=== PATIENT | male | born 1940 | race Caucasian/White ===

== ENCOUNTER → 2018-03-07 | Outpatient (CLI) | payer OTHER ==
--- NOTE | 2018-03-08 23:25 | MR ---
EXAMINATION TYPE: MR hip RT wo con DATE OF EXAM: 03/07/2018 COMPARISON: Abdominal x-ray May 04, 2013. HISTORY: Right hip pain and groin pain with weakness Standard multiplanar, multisequence MRI departmental protocol Multiplanar, multisequence images of the pelvis focus of right hip were acquired. FINDINGS: There is redemonstration of moderate to borderline severe axial joint space loss in both hi ps. There are symmetric small hip joint effusions noted bilaterally. There is no suspicious edema pre sent. No irregular linear T1 signal to suggest avascular necrosis is seen. Femoral head shapes are ma intained. Muscle bulk and bilateral thighs is symmetric and felt within normal limits. There are smal l fat-containing left inguinal hernia. No suspicious groin adenopathy is seen. There is mild increased fluid signal at level of right greater trochanter. There is no suspicious flu id signal level of the lesser trochanters bilaterally. Labrum appears grossly intact given limitation s of nonarthrogram study. There is subchondral cystic change noted in the superior osseous glenoid bi laterally. There is heterogeneous enlarged prostate gland with central zone cystic change bulging and bladder ba se felt to reflect underlying BPH. Correlate clinically. There is no suspicious bowel dilatation. IMPRESSION: Fairly moderate to severe osteoarthritic changes in both hips. Mild right-sided greater trochanteric bursitis is felt present. Prostatic enlargement is noted.
== END ==
LOC: RADMRIMAIN 17:21
PROVIDERS: ATTEND Family Medicine
DX: M16.0 Bilateral primary osteoarthritis of hip (principal); M70.61 Trochanteric bursitis, right hip

== ENCOUNTER → 2018-04-10 | Outpatient (CLI) | payer OTHER ==
--- NOTE | 2018-04-10 23:12 | MR ---
EXAMINATION TYPE: MR lumbar spine wo con DATE OF EXAM: 04/10/2018 COMPARISON: NONE HISTORY: Back and Hip Pain x4 years TECHNIQUE: Multiplanar, multisequence images of the lumbar spine were acquired. Lumbar vertebra have normal alignment. There is 15% anterior wedging of L2 vertebral body. There is a nterior spurring of the endplates throughout the lumbar spine. There is narrowing of disc spaces thro ughout lumbar spine. There is facet arthropathy and lateral recess stenosis at L3-4. There is no para spinal mass. Sacroiliac joints are intact. I see no focal bone destruction. There is a 4 cm oval-shap ed subcutaneous cyst posterior to the spinous process of L5. IMPRESSION: Multilevel spondylosis. No acute fracture seen. Mild lateral recess stenosis as above. No significant spinal stenosis. Multilevel small posterior disc herniations from L1 to S1.
== END | disposition home or self-care (01) ==
LOC: RADMRIMAIN 17:00
PROVIDERS: ATTEND Family Medicine
DX: M48.061 Spinal stenosis, lumbar region without neurogenic claudication (principal); M47.816 Spondylosis without myelopathy or radiculopathy, lumbar region; M51.27 Other intervertebral disc displacement, lumbosacral region; M16.0 Bilateral primary osteoarthritis of hip
CPT/HCPCS: 72148

== ENCOUNTER → 2018-05-13 | Outpatient (CLI) | payer OTHER ==
--- NOTE | 2018-05-20 19:51 | CONS ---
CONSULTATION DATE OF SERVICE: 05/13/2018 This is a 77-year-old male patient with known history of obstructive sleep apnea. The patient is coming in stating that his machine is nonfunctioning. He has an old CPAP unit that is being used for more than 10 years. The patient's original study was done back in the 90s and he is currently using a CPAP at a pressure of 12 cm of water with ramp time of 10 minutes and initial starting pressure of 6. He is averaging 9 hours and 12 minutes on his CPAP and his CPAP use for more than 4 hours 100%. His AHI is down to 5.7, and he has got a 3% periodic breathing with no leaks. He goes to bed around midnight and wakes up at 9 a.m. in the morning. His Bankston score is 11. PAST MEDICAL HISTORY: ROSS, hyperlipidemia, hypothyroidism, hypertension, diabetes mellitus, and degenerative arthritis. SURGICAL HISTORY: Neck surgery, vasectomy. DRUG ALLERGIES: Not known. OUTPATIENT MEDICATION LIST: Includes amlodipine 10 daily, vitamin D3 1000 daily, Flexeril 5 mg p.o. on as needed basis. Glipizide 10 mg p.o. daily, hydralazine 10 mg p.o. 3 times a day, Levothyroxine 88 mcg p.o. daily, lisinopril 40 mg p.o. daily, metoprolol 50 mg p.o. twice a day. Multivitamin 1 tablet a day. Zocor 40 a day. Tramadol 50 daily, aspirin 81 mg p.o. daily, ferrous sulfate 325 mg p.o. daily, vitamin C 250 mg chewables 1 tablet a day. SOCIAL HISTORY: Nonsmoker. No history of alcohol. No history of IV drugs. FAMILY HISTORY: Negative for sleep apnea. REVIEW OF SYSTEMS: 12-point review of system was done. Positive findings are mentioned above history of present illness. PHYSICAL EXAMINATION: BP is 135/60, pulse 58, respirations 14, temperature 97, saturation 94% on room air. Bankston score is 11. Neck size 18-1/2 inches, BMI 34.3, weight 226, height is 5 feet 8 inches. GENERAL APPEARANCE: Calm, comfortable. Head is atraumatic, normocephalic. NECK: Supple. There is Mallampati class IV. There is no goiter or neck masses. LUNGS: Clear to auscultation. HEART: Sounds regular rhythm. Normal S1, S2. No S3, S4. No murmurs. ABDOMEN: Soft, nontender. No organomegaly. EXTREMITIES: No edema. No cyanosis or clubbing. NEUROLOGIC: Alert and oriented x3. No focal neurological deficits. IMPRESSION: 1. Obstructive sleep apnea, which is treated with a CPAP pressure of 12, malfunctioning CPAP unit. 2. Diabetes. 3. Hypertension. 4. Hypothyroidism. 5. Hyperlipidemia. PLAN: Proceed with treatment. We will continue to follow. MMODL / IJN: [id number] /
== END | disposition home or self-care (01) ==
LOC: SLEEP 13:19
PROVIDERS: ATTEND Internal Medicine Critical Care Medicine
DX: G47.33 Obstructive sleep apnea (adult) (pediatric) (principal); E03.9 Hypothyroidism, unspecified; E11.9 Type 2 diabetes mellitus without complications; E78.5 Hyperlipidemia, unspecified; I10 Essential (primary) hypertension; Z88.8 Allergy status to other drugs, medicaments and biological substances
CPT/HCPCS: 99211

== ENCOUNTER → 2018-12-11 | Outpatient (CLI) | payer OTHER | END | disposition home or self-care (01) | LOC: LABWHC1 11:32 | PROVIDERS: ATTEND Internal Medicine Endocrinology, Diabetes & Metabolism | DX: E03.8 Other specified hypothyroidism (principal) | CPT/HCPCS: 36415; 84443 ==

== ENCOUNTER → 2019-01-01 | Outpatient (CLI) | payer OTHER ==
[2019-01-01 21:08] LABS: ACTH 17.5 pg/mL (0.00-45.99)
== END ==
LOC: LABWHC1 13:38
PROVIDERS: ATTEND Internal Medicine Endocrinology, Diabetes & Metabolism
DX: E03.8 Other specified hypothyroidism (principal)
CPT/HCPCS: 36415; 82024; 82533; 84146; 84439; 84443; 84481

== ENCOUNTER → 2019-03-16 | Outpatient (CLI) | payer OTHER | END | disposition home or self-care (01) | LOC: LABWHC1 10:28 | PROVIDERS: ATTEND Internal Medicine Endocrinology, Diabetes & Metabolism | DX: E03.8 Other specified hypothyroidism (principal) | CPT/HCPCS: 36415; 84439; 84443; 84481 ==

== ENCOUNTER → 2019-05-25 | Outpatient (CLI) | payer OTHER ==
[2019-05-25 16:04] LABS: T4, Free (Free Thyroxine) 1.3 ng/dL (0.80-1.80)
== END | disposition home or self-care (01) ==
LOC: LABWHC1 11:52
PROVIDERS: ATTEND Internal Medicine Endocrinology, Diabetes & Metabolism
DX: E03.8 Other specified hypothyroidism (principal)
CPT/HCPCS: 36415; 84439; 84443; 84481

== ENCOUNTER → 2019-08-17 | Outpatient (CLI) | payer OTHER | END | disposition home or self-care (01) | LOC: LABWHC1 10:45 | PROVIDERS: ATTEND Internal Medicine Endocrinology, Diabetes & Metabolism | DX: E03.8 Other specified hypothyroidism (principal) | CPT/HCPCS: 36415; 84443 ==

== ENCOUNTER 2019-10-28 04:58 | Inpatient (IN) | payer OTHER, MEDICARE ==
[2019-10-28] MEDS ORDERED: PANTOPRAZOLE 40 MG/10 ML VIAL IVP STA (05:01)
[2019-10-28] MEDS ORDERED: SODIUM CHLORIDE 0.9% 1,000 ML IV STA (05:01)
[2019-10-28] MEDS ORDERED: ONDANSETRON 4 MG/2 ML VIAL IM STA (05:01)
--- NOTE | 2019-10-28 05:39 | ED ---
GI Bleed HPI - General Chief complaint: GI Bleed Stated complaint: GI Bleed Time Seen by Provider: 10/28/19 05:01 Source: patient, EMS Mode of arrival: EMS Limitations: no limitations - History of Present Illness Initial comments: Bairon is a pleasant 78 yo male who lives alone, patient presents the emergency department this morning via EMS for evaluation of likely GI bleed. Patient reports that he is always had black stools due to taking iron however he was recently very constipated which is also normal with iron he then had a large bowel movement followed by maroon-colored stools.. Patient denies any abdominal pain, chest pain palpitations shortness breath or lightheadedness. He states that he takes aspirin daily but doesn't believe he's on any other type of anticoagulant or antiplatelet medications. states he had a normal colonoscopy a few years ago. - Related Data Home Medications Medication Instructions Recorded Confirmed Alogliptin Benzoate [Alogliptin] 12.5 mg PO DAILY 10/28/19 10/28/19 Ascorbic Acid/Ascorbate Sodium 500 mg PO DAILY 10/28/19 10/28/19 [Vitamin C 250 mg Tablet Chew] Aspirin EC [Ecotrin Low Dose] 81 mg PO DAILY 10/28/19 10/28/19 Cholecalciferol [Vitamin D3 (25 3,000 unit PO DAILY 10/28/19 10/28/19 Mcg = 1000 Iu)] Cyclobenzaprine [Flexeril] 5 mg PO BID PRN 10/28/19 10/28/19 Ferrous Sulfate [Feosol] 325 mg PO TID 10/28/19 10/28/19 Levothyroxine Sodium [Synthroid] 125 mcg PO DAILY 10/28/19 10/28/19 Lidocaine 5% Patch [Lidoderm] 1 patch TOPICAL DAILY 10/28/19 10/28/19 Liothyronine Sodium [Cytomel] 5 mcg PO DAILY 10/28/19 10/28/19 Lisinopril 40 mg PO DAILY 10/28/19 10/28/19 Metoprolol Tartrate [Lopressor] 50 mg PO BID 10/28/19 10/28/19 Multivitamins, Thera [Multivitamin 1 tab PO BID 10/28/19 10/28/19 (formulary)] Pregabalin 50 mg PO BID 12/11/19 12/11/19 Simvastatin [Zocor] 20 mg PO HS 10/28/19 10/28/19 amLODIPine [Norvasc] 10 mg PO DAILY 10/28/19 10/28/19 glipiZIDE [Glucotrol] 10 mg PO AC-TID 10/28/19 10/28/19 hydrALAZINE HCL [Apresoline] 100 mg PO TID 10/28/19 10/28/19 Allergies Allergy/AdvReac Type Severity Reaction Status Date / Time No Known Allergies Allergy Verified 10/28/19 07:19 Review of Systems ROS Statement: Those systems with pertinent positive or pertinent negative responses have been documented in the HPI. ROS Other: All systems not noted in ROS Statement are negative. Past Medical History Past Medical History: Diabetes Mellitus, Hyperlipidemia, Hypertension, Osteoarthritis (OA), Sleep Apnea/CPAP/BIPAP, Thyroid Disorder History of Any Multi-Drug Resistant Organisms: None Reported Past Surgical History: No Surgical Hx Reported Smoking Status: Current every day smoker Past Alcohol Use History: None Reported Past Drug Use History: None Reported General Exam - General Exam Comments Initial Comments: Physical Exam GENERAL: Chronically ill appearing Pale HENT: Normocephalic, Atraumatic. EYES: PERRL, EOMI No conjunctival pallor PULMONARY: Unlabored respirations. CARDIOVASCULAR: RRR ABDOMEN: Soft and nontender with normal bowel sounds. SKIN: Pale : Normal external genitalia Dark bloody stool noted on external rectal exam NEUROLOGIC: Patient is alert and oriented x3. Moving all extremities spontaneously MUSCULOSKELETAL: Normal extremities with adequate strength and full range of motion. No lower extremity swelling or edema. No calf tenderness. PSYCHIATRIC: Normal psychiatric evaluation. Limitations: no limitations Course Vital Signs 10/28/19 10/28/19 10/28/19 05:01 06:53 07:20 Temperature 96.9 F L 97.3 F L Pulse Rate 80 70 72 Respiratory 16 18 16 Rate Blood Pressure 94/50 118/45 129/53 O2 Sat by Pulse 96 98 Oximetry Procedures - Central Line Placement Right IJ Consent Obtained: verbal consent Patient Placed on Monitor/Pulse Ox: Yes MD Prep: mask, gown, gloves Central Line Prep: Chlorhexidine scrub Local Anesthesia Used: Lidocaine 1% Amount of Anesthesia Used (mls): 4 Ultrasound Used for Placement: Yes Central Line Lumen Inserted: triple Bloods Obtained for Lab: No Central Line Position: good blood return, all ports aspirated, flushed, capped, sutured in place with 3-0 nylon Dressing Applied: Tegaderm Patient Tolerated Procedure: well Complications: none Medical Decision Making - Medical Decision Making She was seen and evaluated immediately upon arrival to the emergency department, patient is pale but has no conjunctival pallor, no tachycardia, patient is mildly hypertensive Labs and imaging ordered and sent physical exam does reveal dark maroon stools at the rectum Labs resulted with multiple abnormalities, patient unknown prior kidney function, kidney function today the creatinine of 2.4 Patient reports a history of anemia but doesn't know what his baseline hemoglobin is, hemoglobin today 7.3 patient is actively bleeding therefore blood will be transfused patient did consent to this Given the patient's hypotension and anemia lactic acidosis I will plan to admit him to the ICU for close monitoring. Patient only had bilateral 20-gauge IVs in the hand due to difficult vascular access, risks benefits of a central line were discussed and the patient did consent. A triple lumen central venous catheter was placed under sterile procedure in the right IJ. Patient tolerated procedure well. 2 units of packed red blood cells were ordered for transfusion Patient care Discussed with Dr Bradshaw, ICU as well as Dr Rojas admitting hospitalist who agree with workup and treatment plan as documented. Patient care discussed with GI legal consultant Dr Fernandez who is aware of patient, labs, vitals and plan for admission to ICU - Lab Data Result diagrams: 10/28/19 05:14 10/28/19 05:14 Lab Results 10/28/19 10/28/19 10/28/19 Range/Units 05:05 05:14 05:14 WBC 12.3 H (3.8-10.6) k/uL RBC 2.68 L (4.30-5.90) m/uL Hgb 7.3 L (13.0-17.5) gm/dL Hct 23.0 L (39.0-53.0) % MCV 85.7 (80.0-100.0) fL MCH 27.2 (25.0-35.0) pg MCHC 31.7 (31.0-37.0) g/dL RDW 16.3 H (11.5-15.5) % Plt Count 410 (150-450) k/uL Neutrophils % 68 % Lymphocytes % 23 % Monocytes % 4 % Eosinophils % 2 % Basophils % 0 % Neutrophils # 8.3 H (1.3-7.7) k/uL Lymphocytes # 2.8 (1.0-4.8) k/uL Monocytes # 0.5 (0-1.0) k/uL Eosinophils # 0.2 (0-0.7) k/uL Basophils # 0.1 (0-0.2) k/uL Hypochromasia Slight Anisocytosis Slight PT (9.0-12.0) sec INR (<1.2) APTT (22.0-30.0) sec Sodium 139 (137-145) mmol/L Potassium 5.4 H (3.5-5.1) mmol/L Chloride 109 H (98-107) mmol/L Carbon Dioxide 20 L (22-30) mmol/L Anion Gap 10 mmol/L BUN 49 H (9-20) mg/dL Creatinine 2.40 H (0.66-1.25) mg/dL Est GFR (CKD-EPI)AfAm 29 (>60 ml/min/1.73 sqM) Est GFR (CKD-EPI)NonAf 25 (>60 ml/min/1.73 sqM) Glucose 190 H (74-99) mg/dL Plasma Lactic Acid Jeremy (0.7-2.0) mmol/L Calcium 8.9 (8.4-10.2) mg/dL Magnesium 2.4 H (1.6-2.3) mg/dL Total Bilirubin 0.5 (0.2-1.3) mg/dL AST 27 (17-59) U/L ALT 49 (21-72) U/L Alkaline Phosphatase 118 (38-126) U/L Troponin I (0.000-0.034) ng/mL Total Protein 5.6 L (6.3-8.2) g/dL Albumin 2.8 L (3.5-5.0) g/dL Blood Type Blood Type Confirm O Negative Blood Type Recheck Bld Type Recheck Status Antibody Screen Crossmatch Spec Expiration Date 10/28/19 10/28/19 10/28/19 Range/Units 05:14 05:14 05:14 WBC (3.8-10.6) k/uL RBC (4.30-5.90) m/uL Hgb (13.0-17.5) gm/dL Hct (39.0-53.0) % MCV (80.0-100.0) fL MCH (25.0-35.0) pg MCHC (31.0-37.0) g/dL RDW (11.5-15.5) % Plt Count (150-450) k/uL Neutrophils % % Lymphocytes % % Monocytes % % Eosinophils % % Basophils % % Neutrophils # (1.3-7.7) k/uL Lymphocytes # (1.0-4.8) k/uL Monocytes # (0-1.0) k/uL Eosinophils # (0-0.7) k/uL Basophils # (0-0.2) k/uL Hypochromasia Anisocytosis PT 10.3 (9.0-12.0) sec INR 1.0 (<1.2) APTT 22.9 (22.0-30.0) sec Sodium (137-145) mmol/L Potassium (3.5-5.1) mmol/L Chloride (98-107) mmol/L Carbon Dioxide (22-30) mmol/L Anion Gap mmol/L BUN (9-20) mg/dL Creatinine (0.66-1.25) mg/dL Est GFR (CKD-EPI)AfAm (>60 ml/min/1.73 sqM) Est GFR (CKD-EPI)NonAf (>60 ml/min/1.73 sqM) Glucose (74-99) mg/dL Plasma Lactic Acid Jeremy 4.7 H* (0.7-2.0) mmol/L Calcium (8.4-10.2) mg/dL Magnesium (1.6-2.3) mg/dL Total Bilirubin (0.2-1.3) mg/dL AST (17-59) U/L ALT (21-72) U/L Alkaline Phosphatase (38-126) U/L Troponin I <0.012 (0.000-0.034) ng/mL Total Protein (6.3-8.2) g/dL Albumin (3.5-5.0) g/dL Blood Type Blood Type Confirm Blood Type Recheck Bld Type Recheck Status Antibody Screen Crossmatch Spec Expiration Date 10/28/19 Range/Units 05:14 WBC (3.8-10.6) k/uL RBC (4.30-5.90) m/uL Hgb (13.0-17.5) gm/dL Hct (39.0-53.0) % MCV (80.0-100.0) fL MCH (25.0-35.0) pg MCHC (31.0-37.0) g/dL RDW (11.5-15.5) % Plt Count (150-450) k/uL Neutrophils % % Lymphocytes % % Monocytes % % Eosinophils % % Basophils % % Neutrophils # (1.3-7.7) k/uL Lymphocytes # (1.0-4.8) k/uL Monocytes # (0-1.0) k/uL Eosinophils # (0-0.7) k/uL Basophils # (0-0.2) k/uL Hypochromasia Anisocytosis PT (9.0-12.0) sec INR (<1.2) APTT (22.0-30.0) sec Sodium (137-145) mmol/L Potassium (3.5-5.1) mmol/L Chloride (98-107) mmol/L Carbon Dioxide (22-30) mmol/L Anion Gap mmol/L BUN (9-20) mg/dL Creatinine (0.66-1.25) mg/dL Est GFR (CKD-EPI)AfAm (>60 ml/min/1.73 sqM) Est GFR (CKD-EPI)NonAf (>60 ml/min/1.73 sqM) Glucose (74-99) mg/dL Plasma Lactic Acid Jeremy (0.7-2.0) mmol/L Calcium (8.4-10.2) mg/dL Magnesium (1.6-2.3) mg/dL Total Bilirubin (0.2-1.3) mg/dL AST (17-59) U/L ALT (21-72) U/L Alkaline Phosphatase (38-126) U/L Troponin I (0.000-0.034) ng/mL Total Protein (6.3-8.2) g/dL Albumin (3.5-5.0) g/dL Blood Type O Negative Blood Type Confirm Blood Type Recheck No Previous Record Bld Type Recheck Status CABO Indicated Antibody Screen NEGATIVE Crossmatch See Detail Spec Expiration Date 10/31/2019 - 2314 - EKG Data -: EKG Interpreted by Me EKG shows normal: sinus rhythm EKG Comments: EKG was obtained at 5:04 AM, EKG with a rate of 77 rhythm is sinus prolonged NM, no acute ST elevations or depressions no evidence of ischemia or infarction. Critical Care Time Critical Care Time: Yes Total Critical Care Time: 30 Critical Care Time: Critical Care Time Critical care time was exclusive of separately billable procedures and treating other patients and teaching time. Critical care was necessary to treat or prevent imminent or life-threatening deterioration. Given the critical condition in which the patient arrived, the patient was immediately assessed by myself and the nurse, and cardiac monitoring initiated due to the potential for rapid decompensation of the patient's clinical condition. During the course of the patients stay, I spent a considerable amount of time at the bedside performing serial re-evaluations of the patient's hemodynamic and clinical status because of the recognized potential threat to life or limb in this condition. I then had a chance to review not only all of the available current laboratory and radiographic studies obtained today, but I also reviewed old records available to me at the time. Additionally, any ancillary information available including keyboarding clerk records were reviewed. Se quential vital signs were obtained. Disposition Clinical Impression: Melena, Acute blood loss anemia, Acute kidney injury, Hyperkalemia, Lactic acidosis Disposition: ADMITTED IP TO THIS HOSP Condition: Critical Referrals: [facility],Clinic [Primary Care Provider] - 1-2 days
[2019-10-28 05:45] LABS: Anisocytosis Slight; Basophils # (A) 0.1 k/uL (0-0.2); Basophils % (A) 0 %; Eosinophils # (A) 0.2 k/uL (0-0.7); Eosinophils % (A) 2 %; HGB 7.3 gm/dL (13.0-17.5); Hypochromasia Slight; Lymphocytes # (A) 2.8 k/uL (1.0-4.8); Lymphocytes % (A) 23 %; MCH 27.2 pg (25.0-35.0); MCHC 31.7 g/dL (31.0-37.0); MCV 85.7 fL (80.0-100.0); Mean Platelet Volume 7.9; Monocytes # (A) 0.5 k/uL (0-1.0); Monocytes % (A) 4 %; Neutrophils # (A) 8.3 k/uL (1.3-7.7); Neutrophils % (A) 68 %; Partial Thromboplastin Time 22.9 sec (22.0-30.0); Platelet Count 410 k/uL (150-450); Prothrombin Time 10.3 sec (9.0-12.0); RBC 2.68 m/uL (4.30-5.90); RDW 16.3 % (11.5-15.5); WBC 12.3 k/uL (3.8-10.6)
[2019-10-28 05:48] LABS: Albumin 2.8 g/dL (3.5-5.0); Calcium 8.9 mg/dL (8.4-10.2); Magnesium 2.4 mg/dL (1.6-2.3); Potassium 5.4 mmol/L (3.5-5.1); Total Bilirubin 0.5 mg/dL (0.2-1.3); Total Protein 5.6 g/dL (6.3-8.2)
[2019-10-28] MEDS ORDERED: SODIUM CHLORIDE 0.9% 1,000 ML IV ONE (06:07)
[2019-10-28] MEDS ORDERED: NALOXONE 0.4 MG/ML 1 ML VIAL IV PRN (07:19)
--- NOTE | 2019-10-28 07:54 | XR ---
EXAMINATION TYPE: XR chest 1V portable DATE OF EXAM: 10/28/2019 HISTORY: Shortness of breath. COMPARISON: None. TECHNIQUE: Single view of the chest is submitted. FINDINGS: Right IJ central venous line demonstrates its distal tip overlying the SVC. No evidence for pneumotho rax. Demonstrated are scattered senescent parenchymal change. There is no evidence for focal infiltrate. The heart is stable. Hilar and mediastinal structures are within normal limits. Degenerative changes are seen of the dorsal spine. IMPRESSION: 1. Chronic changes without evidence for acute pulmonary disease.
[2019-10-28 08:18] LABS: Glucose,Whole Blood 249 mg/dL (75-99)
[2019-10-28] MEDS: SODIUM CHLORIDE 0.9% 1,000 ML IV SCH ×2 (08:27→19:57)
[2019-10-28] MEDS ORDERED: PANTOPRAZOLE 40 MG/10 ML VIAL IV SCH (09:00)
--- NOTE | 2019-10-28 10:47 | CONS ---
CONSULTATION PULMONARY/CRITICAL CARE CONSULTATION: DATE OF CONSULTATION: October 28, 2019. REASON FOR CONSULTATION: GI bleed. This is a 78-year-old gentleman who [facility] [place]. The patient has a history of sleep apnea syndrome, history of hyperlipidemia, hypothyroidism, hypertension, diabetes, and DJD. Apparently 24 hours or so prior to admission, the patient developed some abdominal discomfort and cramping as well as some black tarry stools and also some maroon colored stools. For that reason, he came into the emergency room. He was evaluated by Dr. Ingram. He was thought to have a GI bleed. She thought the patient was likely having an upper GI bleed given his maroon- colored stools. He does take iron on a daily basis and his stools are dark anyway. Anyway, in the emergency room, he had a central line placed. Hemoglobin was noted to be 7.3. Two units of blood was ordered. His lactic acid was 4.7. His creatinine was 2.40. He came up to the unit on 4 L nasal cannula and saline at [address] Ingram was kind enough to call me. We were able to look back and find out that the patient has seen Dr. Pederson in the past in April 2018 for his sleep apnea syndrome. In addition, the patient does see Dr. Peggy Arriaga for his thyroid disease. Currently, he is resting comfortably. He is on the O2 and the fluids. Blood is infusing. GI was consulted, Dr. Fernandez. CURRENT MEDICATIONS: Current medications include alogliptin, ascorbic acid, aspirin, vitamin D3, Flexeril, levothyroxine, Lidoderm patch, Cytomel, lisinopril, metoprolol, multivitamins, Lyrica, Zocor, amlodipine, glipizide, and Apresoline. ALLERGIES: Denied. PAST MEDICAL HISTORY: Positive for diabetes mellitus, hyperlipidemia, hypertension, DJD, sleep apnea syndrome, and hypothyroidism. SURGICAL HISTORY: Surgical history includes no major recent surgeries. Most of his surgeries have been minor and remote. SOCIAL HISTORY: Positive for ongoing tobacco use. Denies any alcohol use or illicit drug use. FAMILY HISTORY: Noncontributory. Mother and father were apparently relatively healthy. REVIEW OF SYSTEMS: CONSTITUTIONAL: Negative. NEUROLOGIC: Negative, HEENT: Negative, CARDIOVASCULAR: Negative. PULMONARY: Negative. GI: Abdominal cramping and discomfort, black tarry stools, maroon-colored stools. : Negative. RHEUMATOLOGIC: Negative. IMMUNOLOGIC: Negative. ENDOCRINOLOGIC: Negative. DERMATOLOGIC: Negative. PHYSICAL EXAMINATION: VITAL SIGNS: Current vital signs are reviewed. Temperature 97.9 heart rate 68, respiratory rate 18, blood pressure 114/45, mean 68 and 4 L saturation 96%. GENERAL: Appears in no acute distress. HEENT: Examination is grossly unremarkable. NECK: Supple. Full range of motion. No adenopathy or thyromegaly. Neck veins are flat. CARDIOVASCULAR: Examination reveals regular rhythm and rate. S1, S2 normal. No S3, S4, or murmur. LUNGS: Reveal mostly clear breath sounds. No wheezes or rhonchi. ABDOMEN: Soft. Bowel sounds are heard. EXTREMITIES: Are intact. No cyanosis, clubbing, or edema. SKIN: Without rash. NEUROLOGIC: Examination is brief but nonfocal. LABS: Labs are reviewed. White count 12.3, hemoglobin 7.3, hematocrit 23.0, platelet count 410,000. PT, INR, PTT all normal. Sodium 139, potassium 5.4, chloride 109, CO2 is 20. Anion gap is 10. BUN and creatinine were 49 and 2.40. Lactic acid was 4.7. Magnesium 2.4. Albumin 2.8. EKG shows normal sinus rhythm with first-degree heart block. Chest x-ray shows no acute pulmonary disease. MEDICATIONS: Medications are reviewed. Currently, he is on Narcan, Zofran, Protonix and a 0.9 IV. ASSESSMENT: 1. Gastrointestinal bleed with moderate anemia. 2. No prior history of gastrointestinal bleed. 3. Lactic acidemia secondary to gastrointestinal bleed and anemia. 4. History of sleep apnea syndrome, currently on CPAP, having been seen by my partner in the past. 5. History of hyperlipidemia. 6. Hypothyroidism. 7. Hypertension. 8. Diabetes mellitus. 9. Degenerative joint disease. PLAN: The patient is currently receiving [address] Fernandez from will see the patient. He likely will need a scope. Additional recommendations and suggestions forthcoming. His blood pressure is currently stable. No additional recommendations are made. The patient will be followed accordingly. Hopefully in a day or so, he will be able to leave the intensive care unit. MMODL / IJN: [id number] /
--- NOTE | 2019-10-28 12:08 | P.HPIM ---
History of Present Illness Patient is a pleasant 78-year-old gentleman came in with complaints of dark stools multiple stools along with some clots in the stool. Patient is only an aspirin not in any other anti-coagulation. Patient does have history of coron michelle artery disease has small blockage in one of the distal coronary arteries as per the patient. Patient ever had any stents in the past. Patient was titrated fatigued yesterday had hemoglobin of around 7.1 actually hemoglobin is probably be lower than that patient will receive 2 more units of blood transfusion patient still had multiple dark-colored stools today. Patient denied any chest pain or lightheadedness at this time. Patient denied any fever chills. Patient upon questioning did complain of some epigastric abdominal discomfort along with some nausea. Review of Systems REVIEW OF SYSTEMS: CONSTITUTIONAL: No fever, no malaise, no fatigue. HEENT: No recent visual problems or hearing problems. Denied any sore throat. CARDIOVASCULAR: No chest pain, orthopnea, PND, no palpitations, no syncope. PULMONARY: No shortness of breath, no cough, no hemoptysis. GASTROINTESTINAL: As mentioned in HPI NEUROLOGICAL: No headaches, no weakness, no numbness. HEMATOLOGICAL: Denies any bleeding or petechiae. GENITOURINARY: Denies any burning micturition, frequency, or urgency. MUSCULOSKELETAL/RHEUMATOLOGICAL: Denies any joint pain, swelling, or any muscle pain. ENDOCRINE: Denies any polyuria or polydipsia. The rest of the 14-point review of systems is negative. Past Medical History Past Medical History: Diabetes Mellitus, Hyperlipidemia, Hypertension, Osteoarthritis (OA), Sleep Apnea/CPAP/BIPAP, Thyroid Disorder History of Any Multi-Drug Resistant Organisms: None Reported Past Surgical History: No Surgical Hx Reported Smoking Status: Current every day smoker Past Alcohol Use History: None Reported Past Drug Use History: None Reported Medications and Allergies Home Medications Medication Instructions Recorded Confirmed Type Alogliptin Benzoate [Alogliptin] 12.5 mg PO DAILY 10/28/19 10/28/19 History Ascorbic Acid/Ascorbate Sodium 500 mg PO DAILY 10/28/19 10/28/19 History [Vitamin C 250 mg Tablet Chew] Aspirin EC [Ecotrin Low Dose] 81 mg PO DAILY 10/28/19 10/28/19 History Cholecalciferol [Vitamin D3 (25 3,000 unit PO DAILY 10/28/19 10/28/19 History Mcg = 1000 Iu)] Cyclobenzaprine [Flexeril] 5 mg PO BID PRN 10/28/19 10/28/19 History Ferrous Sulfate [Feosol] 325 mg PO TID 10/28/19 10/28/19 History Levothyroxine Sodium [Synthroid] 125 mcg PO DAILY 10/28/19 10/28/19 History Lidocaine 5% Patch [Lidoderm] 1 patch TOPICAL DAILY 10/28/19 10/28/19 History Liothyronine Sodium [Cytomel] 5 mcg PO DAILY 10/28/19 10/28/19 History Lisinopril 40 mg PO DAILY 10/28/19 10/28/19 History Metoprolol Tartrate [Lopressor] 50 mg PO BID 10/28/19 10/28/19 History Multivitamins, Thera [Multivitamin 1 tab PO BID 10/28/19 10/28/19 History (formulary)] Pregabalin 50 mg PO BID 10/28/19 10/28/19 History Simvastatin [Zocor] 20 mg PO HS 10/28/19 10/28/19 History amLODIPine [Norvasc] 10 mg PO DAILY 10/28/19 10/28/19 History glipiZIDE [Glucotrol] 10 mg PO AC-TID 10/28/19 10/28/19 History hydrALAZINE HCL [Apresoline] 100 mg PO TID 10/28/19 10/28/19 History Allergies Allergy/AdvReac Type Severity Reaction Status Date / Time No Known Allergies Allergy Verified 10/28/19 07:19 Physical Exam Vitals: Vital Signs Temp Pulse Resp BP Pulse Ox 10/28/19 11:00 72 16 115/41 96 10/28/19 10:55 98 F 73 14 110/42 92 L 10/28/19 10:30 75 11 L 112/48 94 L 10/28/19 10:00 70 18 115/50 96 10/28/19 09:30 67 10 L 120/44 96 10/28/19 09:00 68 18 112/41 95 10/28/19 08:30 68 18 114/45 96 10/28/19 08:04 97.9 F 70 16 111/46 96 10/28/19 08:00 97.7 F 67 14 111/44 98 10/28/19 07:30 97.0 F L 66 16 113/48 10/28/19 07:20 97.3 F L 72 16 129/53 10/28/19 06:53 70 18 118/45 98 10/28/19 05:01 96.9 F L 80 16 94/50 96 Intake and Output 10/27/19 10/28/19 10/28/19 22:59 06:59 14:59 Intake Total 420 Output Total 0 Balance 420 Intake: IV 110 Sodium Chloride 0.9% 1, 110 000 ml @ 100 mls/hr IV . Q10H [facility] Rx#:[id number] Blood Product 310 Rc Cpda-1 Unit 310 [id number] Output: Urine 0 Other: Weight 89.811 kg PHYSICAL EXAMINATION: GENERAL: The patient is alert and oriented x3, not in any acute distress. Well developed, well nourished. Does look pale HEENT: Pupils are round and equally reacting to light. EOMI. No scleral icterus. Does have conjunctival pallor. Normocephalic, atraumatic. No pharyngeal erythema. No thyromegaly. CARDIOVASCULAR: S1 and S2 present. No murmurs, rubs, or gallops. PULMONARY: Chest is clear to auscultation, no wheezing or crackles. ABDOMEN: Soft, nontender, nondistended, normoactive bowel sounds. No palpable organomegaly. MUSCULOSKELETAL: No joint swelling or deformity. EXTREMITIES: No cyanosis, clubbing, or pedal edema. NEUROLOGICAL: Gross neurological examination did not reveal any focal deficits. SKIN: No rashes. Results CBC & Chem 7: 10/28/19 05:14 10/28/19 05:14 Labs: Abnormal Lab Results - Last 24 Hours (Table) 10/28/19 10/28/19 10/28/19 Range/Units 05:14 05:14 05:14 WBC 12.3 H (3.8-10.6) k/uL RBC 2.68 L (4.30-5.90) m/uL Hgb 7.3 L (13.0-17.5) gm/dL Hct 23.0 L (39.0-53.0) % RDW 16.3 H (11.5-15.5) % Neutrophils # 8.3 H (1.3-7.7) k/uL Potassium 5.4 H (3.5-5.1) mmol/L Chloride 109 H (98-107) mmol/L Carbon Dioxide 20 L (22-30) mmol/L BUN 49 H (9-20) mg/dL Creatinine 2.40 H (0.66-1.25) mg/dL Glucose 190 H (74-99) mg/dL POC Glucose (mg/dL) (75-99) mg/dL Plasma Lactic Acid Jeremy 4.7 H* (0.7-2.0) mmol/L Magnesium 2.4 H (1.6-2.3) mg/dL Total Protein 5.6 L (6.3-8.2) g/dL Albumin 2.8 L (3.5-5.0) g/dL Crossmatch 10/28/19 10/28/19 Range/Units 05:14 08:08 WBC (3.8-10.6) k/uL RBC (4.30-5.90) m/uL Hgb (13.0-17.5) gm/dL Hct (39.0-53.0) % RDW (11.5-15.5) % Neutrophils # (1.3-7.7) k/uL Potassium (3.5-5.1) mmol/L Chloride (98-107) mmol/L Carbon Dioxide (22-30) mmol/L BUN (9-20) mg/dL Creatinine (0.66-1.25) mg/dL Glucose (74-99) mg/dL POC Glucose (mg/dL) 249 H (75-99) mg/dL Plasma Lactic Acid Jeremy (0.7-2.0) mmol/L Magnesium (1.6-2.3) mg/dL Total Protein (6.3-8.2) g/dL Albumin (3.5-5.0) g/dL Crossmatch See Detail Assessment and Plan Plan: Acute blood loss anemia most probably upper GI bleed and peptic ulcer disease, patient will need upper GI endoscopy gastric body was consulted will transfuse him 2 units of blood and patient is bit hypotensive continue with IV fluids at 100 mL/h hold off on antidepressant medications except for metoprolol. Patient is presently on Protonix IV twice a day -Current artery disease continue with metoprolol hold off rest of the blood pressure medications and aspirin because of GI bleed -Hypertension patient is presently hypotensive secondary to GI bleed holding off on lisinopril, hydralazine. -Renal failure: I do not have any previous creatinine available patient denied any history of chronic kidney disease, patient may have acute renal failure from prerenal azotemia from acute GI bleed. 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 -Continued nicotine use: Counseling was provided for above-mentioned chronic medical problems patient will be resumed on appropriate home medications.
[2019-10-28] MEDS ORDERED: ONDANSETRON 4 MG/2 ML VIAL IVP PRN (12:59)
[2019-10-28] MEDS ORDERED: PEG 3350-NA SULF,BICARB,CL/KCL 4,000 ML BOTTLE PO ONE (16:15)
[2019-10-28 17:38] LABS: Glucose,Whole Blood 148 mg/dL (75-99)
[2019-10-28 18:28] LABS: Anisocytosis Slight; Basophils % (A) 0 %; Eosinophils % (A) 0 %; HCT 25.5 % (39.0-53.0); HGB 7.8 gm/dL (13.0-17.5); Hypochromasia Slight; Lymphocytes # (A) 1.5 k/uL (1.0-4.8); Lymphocytes % (A) 13 %; MCH 25.8 pg (25.0-35.0); MCHC 30.7 g/dL (31.0-37.0); MCV 83.8 fL (80.0-100.0); Mean Platelet Volume 7.7; Microcytosis Slight; Monocytes # (A) 0.4 k/uL (0-1.0); Monocytes % (A) 4 %; Neutrophils % (A) 81 %; Platelet Count 316 k/uL (150-450); RBC 3.04 m/uL (4.30-5.90); RDW 18.3 % (11.5-15.5); WBC 11.2 k/uL (3.8-10.6)
--- NOTE | 2019-10-28 19:47 | P.CONS ---
History of Present Illness - Reason for Consult Consult date: 10/28/19 GI Bleed Requesting physician: Connie Arroyo - Chief Complaint Fall, blood per rectum - History of Present Illness 78-year-old female with medical comorbidities including hypertension, hyperlipidemia, obstructive sleep apnea, and osteoarthritis who presented to the hospital with complaints of blood per rectum. The patient states reporting fatigue and a mechanical fall followed by a large brown bowel movements. He states further bowel movements after presentation to the hospital with maroon- colored stools and clots. He has a known history of iron deficiency and is on iron therapy at home. He reports constipation of 2-3 days prior to having his symptoms. He is on daily aspirin therapy but not on any NSAID therapy or anticoagulation therapy. Last colonoscopy approximately 6-[address] which she believes was normal and he states he possibly had a EGD remotely 20 years ago at which time he was told he had a hiatal hernia. The patient had a h emoglobin of 7.3 on presentation and a significant lactic acidosis of 4.7. 78-year-old gentleman came in with complaints of dark stools multiple stools along with some clots in the stool. Patient is only an aspirin not in any other anti-coagulation. Patient does have history of coronary artery disease has small blockage in one of the distal coronary arteries as per the patient. Patient ever had any stents in the past. Patient was titrated fatigued yesterday had hemoglobin of around 7.1 actually hemoglobin is probably be lower than that patient will receive 2 more units of blood transfusion patient still had multiple dark-colored stools today. Patient denied any chest pain or lightheadedness at this time. Patient denied any fever chills. Patient upon questioning did complain of some epigastric abdominal discomfort along with some nausea. Review of Systems REVIEW OF SYSTEMS: CONSTITUTIONAL: Denies any fevers, chills, weight change or fatigue. CARDIOVASCULAR: Denies any chest pain, palpitations high or low blood pressures but does report a fall prior to presentation RESPIRATORY: Denies any shortness of breath, hemoptysis or cough. GENITOURINARY: No dysuria or hematuria. MUSCULOSKELETAL: No weakness reported. SKIN: Denies any new rashes or lesions, jaundice or pallor. PSYCHIATRIC: Denies any depression or anxiety. NEUROLOGY: Denies headache, denies any new focal deficits. EARS/NOSE/THROAT: No recent hearing change, congestion, nasal discharge or sore throat. EYES: No pain in eyes, discharge or change in vision. GASTROINTESTINAL: As per HPI. Past Medical History Past Medical History: Diabetes Mellitus, Hyperlipidemia, Hypertension, Osteoarthritis (OA), Sleep Apnea/CPAP/BIPAP, Thyroid Disorder History of Any Multi-Drug Resistant Organisms: None Reported Past Surgical History: No Surgical Hx Reported Smoking Status: Current every day smoker Past Alcohol Use History: None Reported Past Drug Use History: None Reported Additional History: Family history: Reviewed with the patient and noncontributory to current medical presentation Medications and Allergies Home Medications Medication Instructions Recorded Confirmed Type Alogliptin Benzoate [Alogliptin] 12.5 mg PO DAILY 10/28/19 10/28/19 History Ascorbic Acid/Ascorbate Sodium 500 mg PO DAILY 10/28/19 10/28/19 History [Vitamin C 250 mg Tablet Chew] Aspirin EC [Ecotrin Low Dose] 81 mg PO DAILY 10/28/19 10/28/19 History Cholecalciferol [Vitamin D3 (25 3,000 unit PO DAILY 10/28/19 10/28/19 History Mcg = 1000 Iu)] Cyclobenzaprine [Flexeril] 5 mg PO BID PRN 10/28/19 10/28/19 History Ferrous Sulfate [Feosol] 325 mg PO TID 10/28/19 10/28/19 History Levothyroxine Sodium [Synthroid] 125 mcg PO DAILY 10/28/19 10/28/19 History Lidocaine 5% Patch [Lidoderm] 1 patch TOPICAL DAILY 10/28/19 10/28/19 History Liothyronine Sodium [Cytomel] 5 mcg PO DAILY 10/28/19 10/28/19 History Lisinopril 40 mg PO DAILY 10/28/19 10/28/19 History Metoprolol Tartrate [Lopressor] 50 mg PO BID 10/28/19 10/28/19 History Multivitamins, Thera [Multivitamin 1 tab PO BID 10/28/19 10/28/19 History (formulary)] Pregabalin 50 mg PO BID 10/28/19 10/28/19 History Simvastatin [Zocor] 20 mg PO HS 10/28/19 10/28/19 History amLODIPine [Norvasc] 10 mg PO DAILY 10/28/19 10/28/19 History glipiZIDE [Glucotrol] 10 mg PO AC-TID 10/28/19 10/28/19 History hydrALAZINE HCL [Apresoline] 100 mg PO TID 10/28/19 10/28/19 History Allergies Allergy/AdvReac Type Severity Reaction Status Date / Time No Known Allergies Allergy Verified 10/28/19 07:19 Physical Exam Vitals: Vital Signs Temp Pulse Resp BP Pulse Ox 10/28/19 08:30 68 18 114/45 96 10/28/19 08:04 97.9 F 70 16 111/46 96 10/28/19 08:00 97.7 F 67 14 111/44 98 10/28/19 07:30 97.0 F L 66 16 113/48 10/28/19 07:20 97.3 F L 72 16 129/53 10/28/19 06:53 70 18 118/45 98 10/28/19 05:01 96.9 F L 80 16 94/50 96 Intake and Output 10/27/19 10/28/19 10/28/19 22:59 06:59 14:59 Intake Total 110 Output Total 0 Balance 110 Intake: IV 110 Sodium Chloride 0.9% 1, 110 000 ml @ 100 mls/hr IV . Q10H [facility] Rx#:[id number] Blood Product 0 Rc Cpda-1 Unit 0 [id number] Output: Urine 0 Other: Weight 89.811 kg On physical examination, patient appears comfortable in no apparent distress. HEAD: Normocephalic, atraumatic. EYES: No scleral icterus. No conjunctival injection. MOUTH: No lesions, tongue midline. NECK: Trachea midline, no gross abnormalities. CHEST: Decreased air entry in all gallo, no wheezing appreciated. HEART: S1-S2 appreciated. ABDOMEN: Soft, obese. Bowel sounds are positive. No organomegaly. No guarding or rigidity. EXTREMITIES: No pedal edema. SKIN: No rashes, no jaundice. NEUROLOGIC: Alert and oriented to person and place. Results CBC & Chem 7: 10/28/19 18:07 10/28/19 05:14 Labs: Abnormal Lab Results - Last 24 Hours (Table) 10/28/19 10/28/19 10/28/19 Range/Units 05:14 05:14 05:14 WBC 12.3 H (3.8-10.6) k/uL RBC 2.68 L (4.30-5.90) m/uL Hgb 7.3 L (13.0-17.5) gm/dL Hct 23.0 L (39.0-53.0) % RDW 16.3 H (11.5-15.5) % Neutrophils # 8.3 H (1.3-7.7) k/uL Potassium 5.4 H (3.5-5.1) mmol/L Chloride 109 H (98-107) mmol/L Carbon Dioxide 20 L (22-30) mmol/L BUN 49 H (9-20) mg/dL Creatinine 2.40 H (0.66-1.25) mg/dL Glucose 190 H (74-99) mg/dL POC Glucose (mg/dL) (75-99) mg/dL Plasma Lactic Acid Jeremy 4.7 H* (0.7-2.0) mmol/L Magnesium 2.4 H (1.6-2.3) mg/dL Total Protein 5.6 L (6.3-8.2) g/dL Albumin 2.8 L (3.5-5.0) g/dL Crossmatch 10/28/19 10/28/19 Range/Units 05:14 08:08 WBC (3.8-10.6) k/uL RBC (4.30-5.90) m/uL Hgb (13.0-17.5) gm/dL Hct (39.0-53.0) % RDW (11.5-15.5) % Neutrophils # (1.3-7.7) k/uL Potassium (3.5-5.1) mmol/L Chloride (98-107) mmol/L Carbon Dioxide (22-30) mmol/L BUN (9-20) mg/dL Creatinine (0.66-1.25) mg/dL Glucose (74-99) mg/dL POC Glucose (mg/dL) 249 H (75-99) mg/dL Plasma Lactic Acid Jeremy (0.7-2.0) mmol/L Magnesium (1.6-2.3) mg/dL Total Protein (6.3-8.2) g/dL Albumin (3.5-5.0) g/dL Crossmatch See Detail Chest x-ray: report reviewed (Chronic changes without evidence of pulmonary disease on chest x-ray.) Assessment and Plan (1) Melena Narrative/Plan: 78-year-old male presenting secondary to a fall in blood per rectum. He reports multiple episodes of maroon-colored stool. No S episodes of similar presentation. He reports constipation prior to symptoms. No NSAID use at home but he is on a baby aspirin daily. No anticoagulation use. Last colonoscopy approximately 6-7 years ago and normal per his recollection and remote history of EGD. Hemoglobin found to fall to 7.3 on presentation and currently 7.8. Denies any abdominal pain. Unknown etiology with differential including peptic ulcer disease, bleeding AVM, diverticulosis with bleed or other etiology. Current Visit: Yes Status: Acute Code(s): K92.1 - MELENA SNOMED Code(s): 2673311 (2) Acute blood loss anemia Current Visit: Yes Status: Acute Code(s): D62 - ACUTE POSTHEMORRHAGIC ANEMIA SNOMED Code(s): 381299219 Plan: Supportive care Continue to monitor hemoglobin and transfuse as needed Protonix 40 mg IV increased to twice a day Continue to monitor stool output Okay for liquid diet Patient will be prepped for EGD and colonoscopy tomorrow for further evaluation Thank you for allowing us to participate in the care of this patient we will continue to follow
[2019-10-28] MEDS: PREGABALIN 50 MG CAP PO SCH (20:24)
[2019-10-28] MEDS: ATORVASTATIN 10 MG TAB PO SCH (20:24)
[2019-10-28] MEDS: PANTOPRAZOLE 40 MG/10 ML VIAL IV SCH (20:24)
[2019-10-28] MEDS: METOPROLOL TARTRATE 50 MG TAB PO SCH (20:24)
[2019-10-28 21:00] LABS: Glucose,Whole Blood 109 mg/dL (75-99)
[2019-10-29 00:33] LABS: Anisocytosis Slight; Basophils % (A) 0 %; Eosinophils # (A) 0.1 k/uL (0-0.7); Eosinophils % (A) 1 %; HCT 23.6 % (39.0-53.0); HGB 7.3 gm/dL (13.0-17.5); Hypochromasia Moderate; Lymphocytes # (A) 1.6 k/uL (1.0-4.8); Lymphocytes % (A) 12 %; MCH 26.1 pg (25.0-35.0); MCHC 31.1 g/dL (31.0-37.0); MCV 84.1 fL (80.0-100.0); Mean Platelet Volume 7.7; Monocytes # (A) 0.6 k/uL (0-1.0); Monocytes % (A) 5 %; Neutrophils % (A) 81 %; Platelet Count 351 k/uL (150-450); WBC 13.6 k/uL (3.8-10.6)
--- NOTE | 2019-10-29 02:40 | XR ---
EXAMINATION TYPE: XR chest 1V portable DATE OF EXAM: 10/29/2019 COMPARISON: Yesterday HISTORY: Short of breath TECHNIQUE: Single view FINDINGS: There is no heart failure nor confluent pneumonic infiltrate. Thoracic aorta is atheromatou s. There is right jugular catheter with the tip in the superior vena cava. There is no sign of pleura l effusion. There are chest leads IMPRESSION: No active cardiopulmonary disease. No change.
[2019-10-29 04:35] LABS: Anisocytosis Slight; Basophils % (A) 0 %; Eosinophils # (A) 0.1 k/uL (0-0.7); Eosinophils % (A) 0 %; HCT 22.1 % (39.0-53.0); Hypochromasia Moderate; Lymphocytes # (A) 1.5 k/uL (1.0-4.8); Lymphocytes % (A) 12 %; MCHC 30.9 g/dL (31.0-37.0); MCV 84.3 fL (80.0-100.0); Mean Platelet Volume 8.5; Microcytosis Slight; Monocytes # (A) 0.6 k/uL (0-1.0); Monocytes % (A) 4 %; Neutrophils # (A) 10.7 k/uL (1.3-7.7); Neutrophils % (A) 82 %; Platelet Count 305 k/uL (150-450); RBC 2.62 m/uL (4.30-5.90); RDW 18.1 % (11.5-15.5); WBC 13.1 k/uL (3.8-10.6)
[2019-10-29 05:03] LABS: HGB 6.8 gm/dL (13.0-17.5)
[2019-10-29] MEDS: SODIUM CHLORIDE 0.9% 1,000 ML IV SCH ×3 (06:07→23:00)
[2019-10-29] MEDS: LEVOTHYROXINE 125 MCG TAB PO SCH (06:12)
[2019-10-29 07:02] LABS: Glucose,Whole Blood 78 mg/dL (75-99)
[2019-10-29] MEDS: PANTOPRAZOLE 40 MG/10 ML VIAL IV SCH ×2 (08:40→20:15)
[2019-10-29] MEDS: METOPROLOL TARTRATE 50 MG TAB PO SCH ×2 (08:40→20:15)
[2019-10-29] MEDS: LIOTHYRONINE SODIUM 5 MCG TAB PO SCH (08:41)
[2019-10-29] MEDS: LINAGLIPTIN 5 MG TABLET PO SCH (08:41)
[2019-10-29] MEDS: LIDOCAINE 5% PATCH TOPICAL SCH (08:41)
[2019-10-29] MEDS: PREGABALIN 50 MG CAP PO SCH ×2 (08:42→20:15)
--- NOTE | 2019-10-29 09:14 | PN ---
PROGRESS NOTE PULMONARY/CRITICAL CARE PROGRESS NOTE: DATE OF SERVICE: 10/29/2019 This is a 78-year-old male who [facility] [place] [place]. He carries with him a diagnosis of sleep apnea syndrome, hyperlipidemia, hypothyroidism, hypertension, diabetes, and DJD. Prior to admission, the patient developed some abdominal discomfort and cramping as well as some black tarry stools and maroon colored stools. He came to the emergency room where he was evaluated by Dr. Ingram. The patient was admitted to the ICU with a GI bleed. His hemoglobin was initially noted to be 7.3. Two units of blood were ordered but I believe he only received 1 unit. His hemoglobin today is 6.8. He will receive at least another unit today. He apparently is going for an EGD and colonoscopy with Dr. Chin today. The patient also had an elevated lactic acid initially of 4.7. Currently, he is on 10 L nasal cannula high flow, and a saline IV at 100 mL an hour. His chest x-ray is negative. As I mentioned, because of his hemoglobin of 6.8, the patient will receive one additional unit of blood. This will be a second unit. The patient otherwise is doing reasonably well. Denies any significant abdominal discomfort. No respiratory issues at this time. Current vital signs are reviewed. His temperature is 98.3, heart rate 64, respiratory rate 14, blood pressure 108/44 mean 65, saturations are 99% on 8 L high flow oxygen. HEENT: Examination is grossly unremarkable. Mucous membranes are dry. Teeth are in poor repair. NECK: Supple. Full range of motion. No adenopathy, thyromegaly or neck vein distention. CARDIOVASCULAR: Examination reveals regular rhythm and rate. Heart rate about 75 beats per minute. S1, S2 normal. Heart sounds are distant. LUNGS: Reveal relatively clear breath sounds. A few scattered mild rhonchi. No wheezes or crackles. Breath sounds equal. ABDOMEN: Soft. No tenderness on palpation. No masses. EXTREMITIES: Intact. No edema. SKIN: Without rash. NEUROLOGIC: Examination is nonfocal. LAB DATA: Today shows white count 13.1, hemoglobin 6.8, hematocrit 22.1, platelet count 305,000. The rest of the labs look okay. Microbiology is negative or pending. Chest x-ray shows no acute disease. MEDICATIONS: Reviewed. Currently, he is on Lipitor, levothyroxine, Lidoderm patch, Tradjenta, Cytomel, Lopressor, Narcan, Zofran, Protonix, Lyrica, and a saline IV at 100 mL an hour. ASSESSMENT: 1. Suspected acute upper gastrointestinal bleed, with EGD and colonoscopy planned for today. 2. Status post 2 units of PRBCs. 3. Acute gastrointestinal blood loss anemia. 4. Lactic acidemia, secondary to gastrointestinal bleed and anemia. 5. History of sleep apnea syndrome, currently on CPAP and previously seen by my partner. 6. History of hyperlipidemia. 7. Hypothyroidism. 8. Hypertension. 9. Diabetes mellitus. 10.Degenerative joint disease. PLAN: The patient received one unit of blood yesterday and will receive another unit of blood morning. His hemoglobin this morning is 6.8. He is to have an EGD and colonoscopy today with Dr. Chin. His chest x-ray is stable. His respiratory status is improved. His blood pressure has been stable. He has had some additional maroon stools throughout the night and black tarry stools. Additional recommendations and suggestions are forthcoming. We will likely keep him here in the unit for another day regardless of the findings on the EGD/colonoscopy. MMODL / IJN: [id number] /
[2019-10-29 11:43] LABS: Calcium 7.7 mg/dL (8.4-10.2); Potassium 5.7 mmol/L (3.5-5.1)
[2019-10-29 11:50] LABS: Glucose,Whole Blood 74 mg/dL (75-99)
[2019-10-29] MEDS ORDERED: KETAMINE 10 MG/ML 20 ML VIAL ONE (12:20)
[2019-10-29] MEDS ORDERED: IV FLUID CONTINUATION 1,000 ML IV ONE (12:20)
[2019-10-29] MEDS ORDERED: LIDOCAINE 1% INJ 10MG/ML (20 ML MDV) ONE (12:20)
[2019-10-29] MEDS ORDERED: PROPOFOL 10 MG/ML 20 ML VIAL IV ONE (12:20)
[2019-10-29] MEDS ORDERED: MIDAZOLAM 2 MG/2 ML VIAL ONE (12:20)
--- NOTE | 2019-10-29 13:18 | P.PCN ---
Date of Procedure: 10/29/19 Description of Procedure: Brief history: 78-year-old female with medical comorbidities including hypertension, hyperlipidemia, obstructive sleep apnea, and osteoarthritis who presented to the hospital with complaints of blood per rectum. The patient states reporting fatigue and a mechanical fall followed by a large brown bowel movements. He states further bowel movements after presentation to the hospital with maroon- colored stools and clots. He has a known history of iron deficiency and is on iron therapy at home. He reports constipation of 2-3 days prior to having his symptoms. He is on daily aspirin therapy but not on any NSAID therapy or anticoagulation therapy. Last colonoscopy approximately 6-7 years ago at the [facility] which she believes was normal and he states he possibly had a EGD remotely 20 years ago at which time he was told he had a hiatal hernia. The patient had a hemoglobin of 7.3 on presentation and a significant lactic acidosis of 4.7. Procedure performed: Esophagogastroduodenoscopy Colonoscopy incomplete/aborted with biopsies of the left colon taken Estimated blood loss: Minimal. Preoperative diagnosis: Anesthesia: MAC Procedure: After informed consent was obtained from the patient was brought into the endoscopy unit and IV sedation was administered by anesthesia under continuous monitoring. Initially upper endoscopy was done. The Olympus GF 190 video endoscope was inserted into the mouth and esophagus intubated without any difficulty and was gradually advanced into the stomach and duodenum and carefully examined. An ulcer with a large adherent clot was noted in the second portion of the duodenum. Attempts were made to remove the clot with lavage and suction which were unsuccessful. The scope was then withdrawn into the stomach adequately insufflated with air and upon careful examination the antrum and body, cardia and fundus appeared normal, with no old blood or active bleeding noted in the stomach. The scope was then withdrawn into the esophagus. The GE junction was located at 40 cm to the incisors. It appeared regular with no erythema erosions or ulcerations. Rest of the esophagus appeared normal. Patient tolerated the procedure well. At this time the patient continued to remain sedation. Initial digital rectal examination was normal. Olympus CF 190 video colonoscope was then inserted into the rectum and gradually advanced to the transverse colon at which point the procedure was aborted due to a poor prep with a large amount of liquid and solid stool throughout the colon. The left colon including the descending, sigmoid and rectum appeared erythematous and friable with hypovascularity suggestive of ischemic colitis with biopsies of the left colon taken. Patient tolerated the procedure well. Impression: 1. Nonbleeding duodenal ulcer with large adherent clot in the second portion of the duodenum. 2. Findings suggestive of ischemic colitis in the left colon with biopsies taken. Procedure aborted due to poor prep. Recommendations: Findings of this examination were discussed with the patient as well as the ICU team. Patient should remain nothing by mouth today with possibility of advancing to liquids tomorrow if he remains hemodynamically stable or evidence of bleeding. Given findings of ischemic colitis patient has been initiated on Unasyn IV. Continue supportive care. If concern for precipitous bleed patient may benefit from transfer to tertiary center for CT angiography will correlating due to the location of the duodenal ulcer.
--- NOTE | 2019-10-29 13:23 | P.PN ---
Subjective Patient was admitted to the with severe anemia and possible upper GI bleed patient underwent upper GI endoscopy which showed a duodenal ulcer which e xplains significant blood loss and significant upper GI bleed. Patient also has some ischemic colitis in the colon. Patient hemoglobin today 6.9 receiving blood transfusion patient the is requiring oxygen but chest x-ray did not show any pulmonary edema IV fluids are being continued. Patient says he is feeling okay. Constitutional: Denied any fatigue denied any fever. Cardio vascular: denied any chest pain, palpitations Gastrointestinal denied any nausea vomiting Pulmonary: Denied any shortness of breath cough Neurologic denied any new focal deficits All inpatient medications were reviewed and appropriate changes in these medications as dictated in the interval history and assessment and plan. Objective - Vital Signs Vital signs: Vital Signs Temp 98 F 10/29/19 12:00 Pulse 64 10/29/19 12:00 Resp 12 10/29/19 12:00 BP 101/82 10/29/19 12:00 Pulse Ox 96 10/29/19 12:00 Intake & Output 10/28/19 10/29/19 10/29/19 18:59 06:59 18:59 Intake Total 1221 1100 720 Output Total 500 600 285 Balance 721 500 435 Weight 89.811 kg 98.4 kg Intake: IV 911 1100 720 Sodium Chloride 0.9% 1, 911 1100 420 000 ml @ 100 mls/hr IV . Q10H [facility] Rx#:[id number] Blood Product 310 0 Rc Cpda-1 Unit 0 [id number] Rc Cpda-1 Unit 310 [id number] Output: Urine 500 600 285 Other: Voiding Method Indwelling Catheter - Exam PHYSICAL EXAMINATION: GENERAL: The patient is alert and oriented x3, not in any acute distress. Well developed, well nourished. Does look pale HEENT: Pupils are round and equally reacting to light. EOMI. No scleral icterus. Does have conjunctival pallor. Normocephalic, atraumatic. No pharyngeal erythema. No thyromegaly. CARDIOVASCULAR: S1 and S2 present. No murmurs, rubs, or gallops. PULMONARY: Chest is clear to auscultation, no wheezing or crackles. ABDOMEN: Soft, nontender, nondistended, normoactive bowel sounds. No palpable organomegaly. MUSCULOSKELETAL: No joint swelling or deformity. EXTREMITIES: No cyanosis, clubbing, or pedal edema. NEUROLOGICAL: Gross neurological examination did not reveal any focal deficits. SKIN: No rashes. - Labs CBC & Chem 7: 10/29/19 04:15 10/29/19 09:15 Labs: Abnormal Lab Results - Last 24 Hours (Table) 10/28/19 10/28/19 10/28/19 Range/Units 05:14 17:26 18:07 WBC 11.2 H (3.8-10.6) k/uL RBC 3.04 L (4.30-5.90) m/uL Hgb 7.8 L (13.0-17.5) gm/dL Hct 25.5 L (39.0-53.0) % MCHC 30.7 L (31.0-37.0) g/dL RDW 18.3 H (11.5-15.5) % Neutrophils # 9.0 H (1.3-7.7) k/uL Potassium (3.5-5.1) mmol/L Chloride (98-107) mmol/L BUN (9-20) mg/dL Creatinine (0.66-1.25) mg/dL Glucose (74-99) mg/dL POC Glucose (mg/dL) 148 H (75-99) mg/dL Calcium (8.4-10.2) mg/dL Crossmatch See Detail 10/28/19 10/28/19 10/29/19 Range/Units 20:49 23:50 04:15 WBC 13.6 H 13.1 H (3.8-10.6) k/uL RBC 2.80 L 2.62 L (4.30-5.90) m/uL Hgb 7.3 L 6.8 L* (13.0-17.5) gm/dL Hct 23.6 L 22.1 L (39.0-53.0) % MCHC 30.9 L (31.0-37.0) g/dL RDW 18.0 H 18.1 H (11.5-15.5) % Neutrophils # 11.0 H 10.7 H (1.3-7.7) k/uL Potassium (3.5-5.1) mmol/L Chloride (98-107) mmol/L BUN (9-20) mg/dL Creatinine (0.66-1.25) mg/dL Glucose (74-99) mg/dL POC Glucose (mg/dL) 109 H (75-99) mg/dL Calcium (8.4-10.2) mg/dL Crossmatch 10/29/19 10/29/19 Range/Units 09:15 11:38 WBC (3.8-10.6) k/uL RBC (4.30-5.90) m/uL Hgb (13.0-17.5) gm/dL Hct (39.0-53.0) % MCHC (31.0-37.0) g/dL RDW (11.5-15.5) % Neutrophils # (1.3-7.7) k/uL Potassium 5.7 H (3.5-5.1) mmol/L Chloride 115 H (98-107) mmol/L BUN 52 H (9-20) mg/dL Creatinine 2.80 H (0.66-1.25) mg/dL Glucose 68 L (74-99) mg/dL POC Glucose (mg/dL) 74 L (75-99) mg/dL Calcium 7.7 L (8.4-10.2) mg/dL Crossmatch Assessment and Plan Plan: Acute blood loss anemia most probably upper GI bleed and peptic ulcer disease, she underwent upper GI endoscopy and colonoscopy upper GI endoscopy showed a duodenal ulcer with a clotted heparin. And they revealed some changes of ischemic colitis. and patient is bit hypotensive continue with IV fluids at 100 mL/h hold off on antihypertensive medications except for metoprolol. Patient is presently on Protonix IV twice a day -Coronary artery disease continue with metoprolol hold off rest of the blood pressure medications and aspirin because of GI bleed -Hypertension patient is presently hypotensive secondary to GI bleed holding off on lisinopril, hydralazine. -Renal failure: I do not have any previous creatinine available patient denied any history of chronic kidney disease, patient may have acute renal failure from prerenal azotemia from acute GI bleed. 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 -Continued nicotine use: Counseling was provided for above-mentioned chronic medical problems patient was resumed on appropriate home medications.
[2019-10-29] MEDS: AMPICILLIN-SULBACTAM 3 GM in SODIUM CHLORIDE 0.9% 100 ML IVPB SCH ×2 (14:00→21:27)
[2019-10-29] MEDS ORDERED: AMPICILLIN-SULBACTAM 3 GM in SODIUM CHLORIDE 0.9% 100 ML IVPB SCH (16:00)
[2019-10-29 16:57] LABS: Glucose,Whole Blood 75 mg/dL (75-99)
[2019-10-29] MEDS: ATORVASTATIN 10 MG TAB PO SCH (20:15)
[2019-10-29 21:10] LABS: Glucose,Whole Blood 80 mg/dL (75-99)
[2019-10-29 21:39] LABS: Anisocytosis Slight; Basophils % (A) 0 %; Eosinophils # (A) 0.1 k/uL (0-0.7); Eosinophils % (A) 1 %; HCT 22.4 % (39.0-53.0); HGB 7.1 gm/dL (13.0-17.5); Hypochromasia Slight; Lymphocytes # (A) 1.1 k/uL (1.0-4.8); Lymphocytes % (A) 12 %; MCH 27.1 pg (25.0-35.0); MCHC 31.7 g/dL (31.0-37.0); MCV 85.5 fL (80.0-100.0); Mean Platelet Volume 7.7; Microcytosis Slight; Monocytes # (A) 0.4 k/uL (0-1.0); Monocytes % (A) 4 %; Neutrophils # (A) 7.8 k/uL (1.3-7.7); Neutrophils % (A) 82 %; Platelet Count 294 k/uL (150-450); RBC 2.63 m/uL (4.30-5.90); RDW 18.7 % (11.5-15.5); WBC 9.5 k/uL (3.8-10.6)
[2019-10-30 04:22] LABS: Anisocytosis Slight; Basophils % (A) 0 %; Eosinophils # (A) 0.1 k/uL (0-0.7); Eosinophils % (A) 1 %; HCT 21.7 % (39.0-53.0); Hypochromasia Slight; Lymphocytes # (A) 1.2 k/uL (1.0-4.8); Lymphocytes % (A) 15 %; MCH 26.8 pg (25.0-35.0); MCHC 31.4 g/dL (31.0-37.0); MCV 85.3 fL (80.0-100.0); Mean Platelet Volume 8.4; Microcytosis Slight; Monocytes # (A) 0.4 k/uL (0-1.0); Monocytes % (A) 4 %; Neutrophils # (A) 6.4 k/uL (1.3-7.7); Neutrophils % (A) 78 %; Platelet Count 293 k/uL (150-450); RBC 2.54 m/uL (4.30-5.90); RDW 18.9 % (11.5-15.5); WBC 8.3 k/uL (3.8-10.6)
[2019-10-30 04:31] LABS: HGB 6.8 gm/dL (13.0-17.5)
[2019-10-30 06:51] LABS: Potassium 5.4 mmol/L (3.5-5.1)
[2019-10-30] MEDS ORDERED: DEXTROSE 10 % IN WATER 250 ML IV ONE (07:03)
[2019-10-30 07:08] LABS: Glucose,Whole Blood 65 mg/dL (75-99)
[2019-10-30] MEDS: LEVOTHYROXINE 125 MCG TAB PO SCH (07:30)
[2019-10-30 07:32] LABS: Glucose,Whole Blood 126 mg/dL (75-99)
[2019-10-30 08:07] LABS: Glucose,Whole Blood 67 mg/dL (75-99)
[2019-10-30] MEDS: PANTOPRAZOLE 40 MG/10 ML VIAL IV SCH ×2 (08:20→19:58)
[2019-10-30] MEDS: PREGABALIN 50 MG CAP PO SCH ×2 (08:20→19:58)
[2019-10-30] MEDS: METOPROLOL TARTRATE 50 MG TAB PO SCH ×2 (08:20→19:58)
[2019-10-30] MEDS: AMPICILLIN-SULBACTAM 3 GM in SODIUM CHLORIDE 0.9% 100 ML IVPB SCH ×2 (08:20→19:59)
[2019-10-30] MEDS: LIDOCAINE 5% PATCH TOPICAL SCH (08:20)
[2019-10-30] MEDS: LINAGLIPTIN 5 MG TABLET PO SCH (08:21)
--- NOTE | 2019-10-30 08:22 | XR ---
EXAMINATION TYPE: XR chest 1V portable DATE OF EXAM: 10/30/2019 COMPARISON: 10/29/2019 INDICATION: Short of breath TECHNIQUE: Single frontal view of the chest is obtained. FINDINGS: The heart size is normal. The pulmonary vasculature is normal. There are mild bibasilar infiltrates present. Small pleural effusions should also be considered. A right central venous catheter is present with tip in the proximal right atrial region. There is a c atheter overlying the right neck and upper thorax. IMPRESSION: 1. Bibasilar infiltrates and small pleural effusions, developing from comparison. 2. Right central venous catheter with tip in the proximal right atrium.
[2019-10-30] MEDS ORDERED: FUROSEMIDE 10 MG/ML 4 ML VIAL IV STA (08:26)
--- NOTE | 2019-10-30 08:35 | P.PN ---
Subjective Progress Note Date: 10/30/19 Principal diagnosis: Acute upper GI bleeding, blood loss anemia, On 10/30/2017 patient seen in follow-up in the intensive care unit, yesterday patient had a EGD/colonoscopy which revealed a duodenal ulcer, that was not actively bleeding with a large anterior and clot in the second portion of the duodenum. Colonoscopy revealed ischemic colitis in the left colon with biopsies taken. However the procedure had to be aborted related to poor prep. Today's hemoglobin is 6.8, patient has had 2 units of blood already, and he is receiving an additional unit of blood this morning. Hemodynamically patient is stable, receiving IV fluids, with 0.9 normal saline at a rate of 100 ML per hour. She remains on high flow oxygen, at 10 L and his pulse ox is 92-93%. Complaints of chest pain, patient does have exertional dyspnea, today's chest x-ray has been reviewed, showing bibasilar atelectasis and bilateral pleural effusions. Patient is still getting IV fluids at a rate of 100, we will turn it was down, and give the patient a dose of IV Lasix, today's labs have been reviewed, showing white blood cell count 8.3, hemoglobin of 6.8, platelet count 293, sodium was 143, potassium was 5.4, chloride was 117, CO2 was 22, BUN was 53, creatinine was 2.94. Lung sounds reveal diminished breath sounds bilaterally. No active bleeding overnight. Patient remains nothing by mouth at this time Objective - Vital Signs Vital signs: Vital Signs Temp 97.7 F 10/30/19 08:07 Pulse 73 10/30/19 08:07 Resp 14 10/30/19 08:07 BP 122/92 10/30/19 08:07 Pulse Ox 92 L 10/30/19 08:07 Intake & Output 10/29/19 10/30/19 10/30/19 18:59 06:59 18:59 Intake Total 1630 1300 100 Output Total 570 985 185 Balance 1060 315 -85 Weight 94 kg Intake: IV 1320 1300 100 Ampicillin-Sulbactam 3 gm 100 In Sodium Chloride 0.9% 100 ml @ 200 mls/hr IVPB Q12HR [facility] Rx#:[id number] Sodium Chloride 0.9% 1, 1020 1200 100 000 ml @ 100 mls/hr IV . Q10H [facility] Rx#:[id number] Blood Product 310 0 Rc Cpda-1 Unit 0 [id number] Rc Cpda-1 Unit 310 [id number] Output: Urine 570 985 185 Other: Voiding Method Indwelling Catheter Indwelling Catheter Indwelling Catheter - Exam GENERAL EXAM: Alert, very pleasant, 78-year-old white male, on 10 L per high flow oxygen, pulse ox of 92%, comfortable in no apparent distress. HEAD: Normocephalic/atraumatic. EYES: Normal reaction of pupils, equal size. Conjunctiva pink, sclera white. NOSE: Clear with pink turbinates. THROAT: No erythema or exudates. NECK: No masses, no JVD, no thyroid enlargement, no adenopathy. CHEST: No chest wall deformity. Symmetrical expansion. LUNGS: Equal air entry with no crackles, wheeze, rhonchi or dullness. Diminished breath sounds at the bases CVS: Regular rate and rhythm, normal S1 and S2, no gallops, no murmurs, no rubs ABDOMEN: Soft, nontender. No hepatosplenomegaly, normal bowel sounds, no guarding or rigidity. EXTREMITIES: No clubbing, no edema, no cyanosis, 2+ pulses and upper and lower extremities. MUSCULOSKELETAL: Muscle strength and tone normal. SPINE: No scoliosis or deformity SKIN: No rashes CENTRAL NERVOUS SYSTEM: Alert and oriented -3. No focal deficits, tone is normal in all 4 extremities. PSYCHIATRIC: Alert and oriented -3. Appropriate affect. Intact judgment and insight. - Labs CBC & Chem 7: 10/30/19 04:10 10/30/19 04:10 Labs: Abnormal Lab Results - Last 24 Hours (Table) 10/28/19 10/29/19 10/29/19 Range/Units 05:14 09:15 11:38 RBC (4.30-5.90) m/uL Hgb (13.0-17.5) gm/dL Hct (39.0-53.0) % RDW (11.5-15.5) % Neutrophils # (1.3-7.7) k/uL Potassium 5.7 H (3.5-5.1) mmol/L Chloride 115 H (98-107) mmol/L BUN 52 H (9-20) mg/dL Creatinine 2.80 H (0.66-1.25) mg/dL Glucose 68 L (74-99) mg/dL POC Glucose (mg/dL) 74 L (75-99) mg/dL Calcium 7.7 L (8.4-10.2) mg/dL Crossmatch See Detail 10/29/19 10/30/19 10/30/19 Range/Units 20:49 04:10 04:10 RBC 2.63 L 2.54 L (4.30-5.90) m/uL Hgb 7.1 L 6.8 L* (13.0-17.5) gm/dL Hct 22.4 L 21.7 L (39.0-53.0) % RDW 18.7 H 18.9 H (11.5-15.5) % Neutrophils # 7.8 H (1.3-7.7) k/uL Potassium 5.4 H (3.5-5.1) mmol/L Chloride 117 H (98-107) mmol/L BUN 53 H (9-20) mg/dL Creatinine 2.94 H (0.66-1.25) mg/dL Glucose 59 L (74-99) mg/dL POC Glucose (mg/dL) (75-99) mg/dL Calcium 8.0 L (8.4-10.2) mg/dL Crossmatch 10/30/19 10/30/19 10/30/19 Range/Units 06:56 07:10 07:21 RBC (4.30-5.90) m/uL Hgb (13.0-17.5) gm/dL Hct (39.0-53.0) % RDW (11.5-15.5) % Neutrophils # (1.3-7.7) k/uL Potassium (3.5-5.1) mmol/L Chloride (98-107) mmol/L BUN (9-20) mg/dL Creatinine (0.66-1.25) mg/dL Glucose (74-99) mg/dL POC Glucose (mg/dL) 65 L 67 L 126 H (75-99) mg/dL Calcium (8.4-10.2) mg/dL Crossmatch Assessment and Plan Plan: Assessment: #1. Acute blood loss anemia related to upper GI bleeding, patient has received 3 units of packed red blood cells so far #2. Duodenal ulcer #3. Possible ischemic colitis #4. Acute hypoxic respiratory failure related to bibasilar atelectasis and pleural effusions and fluid overload #5. Lactic acidemia secondary to GI bleed and anemia #6. History of obstructive sleep apnea on CPAP #7. History of hyperlipidemia #8. Hypothyroidism #9. Hypertension #10. Diabetes mellitus #11. Degenerative joint disease Plan: A chest x-ray has been reviewed showing bilateral pleural effusions, and bibasilar atelectasis, we'll start IV fluids, will give the patient dose of IV Lasix, weaning FiO2, hemodynamically patient remains stable, he is receiving another unit of blood this morning, no active bleeding overnight, continue PPI therapy. We'll continue to follow, chest x-ray in the morning I performed a history & physical examination of the patient and discussed their management with my nurse practitioner, Cristina Tinoco. I reviewed the nurse practitioner's note and agree with the documented findings and plan of care. Lung sounds are positive for diminished breath sounds at the bases. The findings and the impression was discussed with the patient. I attest to the d ocumentation by the nurse practitioner. Time with Patient: Less than 30
[2019-10-30] MEDS: SODIUM CHLORIDE 0.9% 1,000 ML IV SCH (10:00)
[2019-10-30] MEDS: LIOTHYRONINE SODIUM 5 MCG TAB PO SCH (10:05)
[2019-10-30 12:03] LABS: Glucose,Whole Blood 97 mg/dL (75-99)
--- NOTE | 2019-10-30 14:55 | P.PN ---
Subjective Progress Note Date: 10/30/19 Principal diagnosis: GI bleed; status post EGD/colonoscopy Duodenal ulcer/ischemic colitis 10/30/2017 patient seen in follow-up in the intensive care unit; patient's family is at bedside and had multiple questions which were all addressed to her sa tisfaction; patient is status post EGD/colonoscopy which revealed a duodenal ulcer, that was not actively bleeding with a large anterior and clot in the second portion of the duodenum. Colonoscopy revealed ischemic colitis in the left colon with biopsies taken. However the procedure had to be aborted related to poor prep. Lab review shows hemoglobin is 6.8, patient has had 2 units of blood already, and he is receiving an additional unit of blood this morning. Hemodynamically patient is stable, receiving IV fluids, with 0.9 normal saline at a rate of 100 ML per hour. He remains on high flow oxygen, at 10 L and his pulse ox is 92- 93%. Complaints of chest pain, patient does have exertional dyspnea, today's chest x-ray has been reviewed, showing bibasilar atelectasis and bilateral pleur al effusions. Patient is still getting IV fluids at a rate of 100, we will turn it was down, and give the patient a dose of IV Lasix, today's labs have been reviewed, showing white blood cell count 8.3, hemoglobin of 6.8, platelet count 293, sodium was 143, potassium was 5.4, chloride was 117, CO2 was 22, BUN was 53, creatinine was 2.94. No report of any further rectal bleeding; we will continue to monitor H&H closely and transfuse when needed Objective - Vital Signs Vital signs: Vital Signs Temp 98.3 F 10/30/19 12:00 Pulse 64 10/30/19 12:00 Resp 15 10/30/19 12:00 BP 120/55 10/30/19 12:00 Pulse Ox 94 L 10/30/19 12:00 Intake & Output 10/29/19 10/30/19 10/30/19 18:59 06:59 18:59 Intake Total 1630 1300 1060 Output Total 297 801 4405 Balance 1060 315 -15 Weight 94 kg Intake: IV 1320 1300 300 Ampicillin-Sulbactam 3 gm 100 In Sodium Chloride 0.9% 100 ml @ 200 mls/hr IVPB Q12HR [facility] Rx#:[id number] Sodium Chloride 0.9% 1, 1020 1200 300 000 ml @ 100 mls/hr IV . Q10H [facility] Rx#:[id number] Oral 450 Blood Product 310 310 Rc Cpda-1 Unit 310 [id number] Rc Cpda-1 Unit 310 [id number] Output: Urine 009 694 6334 Other: Voiding Method Indwelling Catheter Indwelling Catheter Indwelling Catheter - Exam PHYSICAL EXAMINATION: GENERAL: The patient is alert and oriented x3, not in any acute distress. Well developed, well nourished. HEENT: Pupils are round and equally reacting to light. EOMI. No scleral icterus. No conjunctival pallor. Normocephalic, atraumatic. No pharyngeal erythema. No thyromegaly. CARDIOVASCULAR: S1 and S2 present. No murmurs, rubs, or gallops. PULMONARY: Chest is clear to auscultation, no wheezing or crackles. ABDOMEN: Soft, nontender, nondistended, normoactive bowel sounds. No palpable organomegaly. MUSCULOSKELETAL: No joint swelling or deformity. EXTREMITIES: No cyanosis, clubbing, or pedal edema. NEUROLOGICAL: Gross neurological examination did not reveal any focal deficits. SKIN: No rashes. - Labs CBC & Chem 7: 10/30/19 04:10 10/30/19 04:10 Labs: Abnormal Lab Results - Last 24 Hours (Table) 10/28/19 10/29/19 10/30/19 Range/Units 05:14 20:49 04:10 RBC 2.63 L 2.54 L (4.30-5.90) m/uL Hgb 7.1 L 6.8 L* (13.0-17.5) gm/dL Hct 22.4 L 21.7 L (39.0-53.0) % RDW 18.7 H 18.9 H (11.5-15.5) % Neutrophils # 7.8 H (1.3-7.7) k/uL Potassium (3.5-5.1) mmol/L Chloride (98-107) mmol/L BUN (9-20) mg/dL Creatinine (0.66-1.25) mg/dL Glucose (74-99) mg/dL POC Glucose (mg/dL) (75-99) mg/dL Calcium (8.4-10.2) mg/dL Crossmatch See Detail 10/30/19 10/30/19 10/30/19 Range/Units 04:10 06:56 07:10 RBC (4.30-5.90) m/uL Hgb (13.0-17.5) gm/dL Hct (39.0-53.0) % RDW (11.5-15.5) % Neutrophils # (1.3-7.7) k/uL Potassium 5.4 H (3.5-5.1) mmol/L Chloride 117 H (98-107) mmol/L BUN 53 H (9-20) mg/dL Creatinine 2.94 H (0.66-1.25) mg/dL Glucose 59 L (74-99) mg/dL POC Glucose (mg/dL) 65 L 67 L (75-99) mg/dL Calcium 8.0 L (8.4-10.2) mg/dL Crossmatch 10/30/19 Range/Units 07:21 RBC (4.30-5.90) m/uL Hgb (13.0-17.5) gm/dL Hct (39.0-53.0) % RDW (11.5-15.5) % Neutrophils # (1.3-7.7) k/uL Potassium (3.5-5.1) mmol/L Chloride (98-107) mmol/L BUN (9-20) mg/dL Creatinine (0.66-1.25) mg/dL Glucose (74-99) mg/dL POC Glucose (mg/dL) 126 H (75-99) mg/dL Calcium (8.4-10.2) mg/dL Crossmatch Assessment and Plan Assessment: Acute blood loss anemia - Patient is status post EGD/colonoscopy which revealed duodenal ulcer without any active bleeding with the large interior clot in the second portion of duodenum; colonoscopy revealed ischemic colitis and left colon; by this is done and results are pending patient will need upper GI endoscopy gastric body was consulted will transfuse him 2 units of blood and patient is bit hypotensive continue with IV fluids at 100 mL/h hold off on antidepressant medications except for metoprolol. Patient is presently on Protonix IV twice a day -Current artery disease continue with metoprolol hold off rest of the blood pressure medications and aspirin because of GI bleed -Hypertension patient is presently hypotensive secondary to GI bleed holding off on lisinopril, hydralazine. -Renal failure: I do not have any previous creatinine available patient denied any history of chronic kidney disease, patient may have acute renal failure from prerenal azotemia from acute GI bleed. 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 -Continued nicotine use: Counseling was provided for above-mentioned chronic medical problems patient will be resumed on appropriate home medications. Time with Patient: Greater than 30
[2019-10-30 17:10] LABS: Glucose,Whole Blood 206 mg/dL (75-99)
--- NOTE | 2019-10-30 17:44 | PN ---
PROGRESS NOTE DATE OF DICTATION: 10/30/2019 This patient is a 78-year-old pleasant white male admitted to the hospital with acute GI bleed. He had multiple episodes of maroon-colored stools. He underwent an EGD and colonoscopy by Dr. Fernandez yesterday. Upper endoscopy revealed a nonbleeding duodenal ulcer with a small clot and colonoscopy revealed ischemic colitis. The patient is doing much better. Bleeding has resolved. He denies any abdominal pain. He was started on a clear liquid diet, tolerating well. PHYSICAL EXAMINATION: Blood pressure is 129/59, pulse rate 60, temperature 99. HEENT examination unremarkable. Conjunctivae pink. Sclerae anicteric. Oral cavity no lesions. NECK: No JVD or lymph node enlargement. CHEST: Clear to auscultation. HEART: Regular rate and rhythm. ABDOMEN: Soft. Bowel sounds are positive. No organomegaly. EXTREMITIES: No pedal edema. SKIN: No rashes. NEUROLOGIC: Alert and oriented x3. No focal deficits. LABS: Labs from today show WBC 8.3, hemoglobin 6.8, platelets 293. He received a total of 3 units of PRBC transfusion so far during this hospitalization. IMPRESSION: 1. Acute gastrointestinal bleed, status post esophagogastroduodenoscopy and colonoscopy yesterday which revealed duodenal ulcer with a small clot and evidence of ischemic colitis. Patient has no further bleeding. He dropped his hemoglobin to 6.8, required another unit of blood transfusion. Repeat CBC is still pending. 2. History of hypertension. 3. Coronary artery disease, stable. 4. Diabetes mellitus. RECOMMENDATIONS: 1. Continue with a clear liquid diet. 2. Repeat CBC in the morning. 3. If no further evidence of bleeding, will advance diet as tolerated. 4. Continue with Protonix 40 mg twice daily. Thank you for this consultation. MMODL / IJN: [id number] /
[2019-10-30] MEDS: ATORVASTATIN 10 MG TAB PO SCH (19:58)
[2019-10-30 20:55] LABS: Glucose,Whole Blood 242 mg/dL (75-99)
[2019-10-30] MEDS: INSULIN ASPART (NovoLOG) 100 UNIT/ML VIAL SQ SCH (21:06)
[2019-10-31] MEDS ORDERED: QUEtiapine 25 MG TAB PO STA (00:24)
[2019-10-31 00:38] LABS: Glucose,Whole Blood 134 mg/dL (75-99)
[2019-10-31 05:18] LABS: Anisocytosis Slight; Basophils % (A) 0 %; Eosinophils # (A) 0.1 k/uL (0-0.7); Eosinophils % (A) 3 %; HCT 21.1 % (39.0-53.0); Lymphocytes # (A) 1.1 k/uL (1.0-4.8); Lymphocytes % (A) 21 %; MCH 26.7 pg (25.0-35.0); MCHC 31.4 g/dL (31.0-37.0); Mean Platelet Volume 7.8; Monocytes # (A) 0.3 k/uL (0-1.0); Monocytes % (A) 5 %; Neutrophils # (A) 3.5 k/uL (1.3-7.7); Neutrophils % (A) 69 %; Platelet Count 266 k/uL (150-450); RBC 2.48 m/uL (4.30-5.90); RDW 18.1 % (11.5-15.5); WBC 5.1 k/uL (3.8-10.6)
[2019-10-31 05:21] LABS: HGB 6.6 gm/dL (13.0-17.5)
[2019-10-31] MEDS: LEVOTHYROXINE 125 MCG TAB PO SCH ×2 (05:46→06:43)
[2019-10-31 06:38] LABS: Calcium 8.1 mg/dL (8.4-10.2); Potassium 4.9 mmol/L (3.5-5.1)
[2019-10-31] MEDS: SODIUM CHLORIDE 0.9% 1,000 ML IV SCH (06:43)
[2019-10-31] MEDS: INSULIN ASPART (NovoLOG) 100 UNIT/ML VIAL SQ SCH ×4 (06:56→20:53)
[2019-10-31 07:04] LABS: Glucose,Whole Blood 175 mg/dL (75-99)
[2019-10-31] MEDS: LINAGLIPTIN 5 MG TABLET PO SCH (08:14)
[2019-10-31] MEDS: AMPICILLIN-SULBACTAM 3 GM in SODIUM CHLORIDE 0.9% 100 ML IVPB SCH ×2 (08:16→20:32)
[2019-10-31] MEDS: LIDOCAINE 5% PATCH TOPICAL SCH (08:16)
[2019-10-31] MEDS: PREGABALIN 50 MG CAP PO SCH ×2 (08:17→23:41)
[2019-10-31] MEDS: PANTOPRAZOLE 40 MG/10 ML VIAL IV SCH ×2 (08:17→20:31)
[2019-10-31] MEDS: METOPROLOL TARTRATE 50 MG TAB PO SCH ×2 (08:17→23:41)
[2019-10-31] MEDS: LIOTHYRONINE SODIUM 5 MCG TAB PO SCH (08:17)
[2019-10-31] MEDS ORDERED: ePHEDrine SULFATE/0.9% NACL/PF 50 MG/5 ML SYRINGE IV ONE (09:09)
[2019-10-31] MEDS ORDERED: PROPOFOL 10 MG/ML 20 ML VIAL IV ONE (09:09)
[2019-10-31] MEDS ORDERED: PHENYLEPHRINE-0.9% NACL SYG 1 MG/10 ML SYRINGE ONE (09:09)
[2019-10-31] MEDS ORDERED: KETAMINE 10 MG/ML 20 ML VIAL ONE (09:09)
[2019-10-31] MEDS ORDERED: LIDOCAINE 1% INJ 10MG/ML (20 ML MDV) ONE (09:09)
[2019-10-31] MEDS ORDERED: EPINEPHrine 10 ML SYRINGE (0.1 MG/ML) MISCELLANE ONE (09:33)
[2019-10-31] MEDS ORDERED: IV FLUID CONTINUATION 1,000 ML IV ONE (09:47)
--- NOTE | 2019-10-31 09:47 | P.PCN ---
Date of Procedure: 10/31/19 Procedure(s) Performed: BRIEF HISTORY: Patient is a 78-year-old, pleasant, white male admitted to the intensive care unit with acute GI bleed. Multiple episodes of maroon-colored stools. Hemoglobin was 6 g/dL. he received3 units of PRBC transfusion.. He had an upper endoscopy as well as colonoscopy by Dr. Fernandez 3 days ago which revealed a large duodenal ulcer with an adherent clot that could not be removed but no active bleeding. Colonoscopy revealed ischemic colitis..patient continued to drop his hemoglobin yesterday and today to 6.6 g/dL requiring 1 unit of blood transfusion yesterday and one unit today. He had an episode of large maroon bloody bowel movement last night. His and scheduled for repeat upper endoscopy to evaluate the duodenal ulcer PROCEDURE PERFORMED: Esophagogastroduodenoscopywith injection epinephrine and Endo Clip placement. PREOPERATIVE DIAGNOSIS: acute upper GI bleed. IV sedation per anesthesia. PROCEDURE: After informed consent was obtained, the patient was brought into the endoscopy unit. IV sedation was administered by Anesthesia under continuous monitoring. Initially the Olympus GIF-140 video endoscope was inserted into the mouth. Esophagus intubated without any difficulty. It was gradually advanced into the stomach and duodenum and carefully examined. The bulb and the second part of the duodenum had active fresh blood noted. Along the duodenal sweep there was a large clot identified that was gently irrigated and withdrawn. In the base of the clot there was a 3 cm deep ulcerations with an actively bleeding visible vessel noted. At this time 1 in 10,000 epinephrine was injected at the site of the visible vessel followed by Endo Clip placement. 4 clips were placed and finally hemostasis was achieved. The scope at this time was withdrawn to the stomach, adequately insufflated with air, and upon careful examination, mucosa of the antrum, body, cardia and the fundus appeared normal.there were large clots in the stomach adequately sedated. The scope was then withdrawn into the esophagus. The GE junction was located at 39 cm from the incisors. The esophagus appeared normal. There were no erosions or ulcerations seen and the patient tolerated the procedure well. IMPRESSION: 1.Large adherent clot noted along the duodenal sweep which was removed. A deep ulceration with actively bleeding visible vessel noted. Status postinjection epinephrine and Endo Clip placementwith good hemostasis 2.large clots in the stomach. RECOMMENDATIONS: The findings of this examination were discussed with the patient. Continue with Protonix 40 mg every [address] tube in place.monitor CBC every 6 hours and transfuse if hemoglobin is less than 7. Surgical consultation as a standby in case seen has recurrent bleeding.
--- NOTE | 2019-10-31 11:45 | P.GSCN ---
History of Present Illness Consult date: 10/31/19 Reason for Consult: Duodenal ulcer History of present illness: 78-year-old male came to the hospital with black colored stools followed by fred on-colored stools. No pain. States he takes aspirin daily. Underwent upper endoscopy which revealed a duodenal ulcer. Taken back to the endoscopy today after evidence of recurrent bleeding. Adherent clot was removed. Visible vessel was apparently seen. Multiple clips deployed with good control per GI. We were consulted to remain on surgical standby. Patient remains in the ICU. Has a nasogastric tube in place at this time. Review of Systems The patient denies any acute changes in vision or hearing, no dysphagia or odynophagia, no chest pain or shortness of breath, no dysuria or hematuria, no headache, no runny nose, no unexplained weight loss Past Medical History Past Medical History: Diabetes Mellitus, Hyperlipidemia, Hypertension, Osteoarthritis (OA), Sleep Apnea/CPAP/BIPAP, Thyroid Disorder History of Any Multi-Drug Resistant Organisms: None Reported Past Surgical History: No Surgical Hx Reported Past Anesthesia/Blood Transfusion Reactions: No Reported Reaction Smoking Status: Current every day smoker Past Alcohol Use History: None Reported Past Drug Use History: None Reported Medications and Allergies Home Medications Medication Instructions Recorded Confirmed Type Alogliptin Benzoate [Alogliptin] 12.5 mg PO DAILY 10/28/19 10/28/19 History Ascorbic Acid/Ascorbate Sodium 500 mg PO DAILY 10/28/19 10/28/19 History [Vitamin C 250 mg Tablet Chew] Aspirin EC [Ecotrin Low Dose] 81 mg PO DAILY 10/28/19 10/28/19 History Cholecalciferol [Vitamin D3 (25 3,000 unit PO DAILY 10/28/19 10/28/19 History Mcg = 1000 Iu)] Cyclobenzaprine [Flexeril] 5 mg PO BID PRN 10/28/19 10/28/19 History Ferrous Sulfate [Feosol] 325 mg PO TID 10/28/19 10/28/19 History Levothyroxine Sodium [Synthroid] 125 mcg PO DAILY 10/28/19 10/28/19 History Lidocaine 5% Patch [Lidoderm] 1 patch TOPICAL DAILY 10/28/19 10/28/19 History Liothyronine Sodium [Cytomel] 5 mcg PO DAILY 10/28/19 10/28/19 History Lisinopril 40 mg PO DAILY 10/28/19 10/28/19 History Metoprolol Tartrate [Lopressor] 50 mg PO BID 10/28/19 10/28/19 History Multivitamins, Thera [Multivitamin 1 tab PO BID 10/28/19 10/28/19 History (formulary)] Pregabalin 50 mg PO BID 10/28/19 10/28/19 History Simvastatin [Zocor] 20 mg PO HS 10/28/19 10/28/19 History amLODIPine [Norvasc] 10 mg PO DAILY 10/28/19 10/28/19 History glipiZIDE [Glucotrol] 10 mg PO AC-TID 10/28/19 10/28/19 History hydrALAZINE HCL [Apresoline] 100 mg PO TID 10/28/19 10/28/19 History Allergies Allergy/AdvReac Type Severity Reaction Status Date / Time No Known Allergies Allergy Verified 10/28/19 07:19 Surgical - Exam Vital Signs Temp Pulse Resp BP Pulse Ox 96.9 F L 80 16 94/50 96 10/28/19 05:01 10/28/19 05:01 10/28/19 05:01 10/28/19 05:01 10/28/19 05:01 Physical exam: General: Well-developed, well-nourished HEENT: Normocephalic, sclerae nonicteric Abdomen: Nontender, nondistended Extremities: No edema Neuro: Alert and oriented Results - Labs 10/31/19 04:55 10/31/19 04:55 Abnormal Lab Results - Last 24 Hours (Table) 10/28/19 10/30/19 10/30/19 Range/Units 05:14 16:58 20:35 RBC (4.30-5.90) m/uL Hgb (13.0-17.5) gm/dL Hct (39.0-53.0) % RDW (11.5-15.5) % Chloride (98-107) mmol/L BUN (9-20) mg/dL Creatinine (0.66-1.25) mg/dL POC Glucose (mg/dL) 206 H 242 H (75-99) mg/dL Calcium (8.4-10.2) mg/dL Crossmatch See Detail 10/31/19 10/31/19 10/31/19 Range/Units 00:26 04:55 04:55 RBC 2.48 L (4.30-5.90) m/uL Hgb 6.6 L* (13.0-17.5) gm/dL Hct 21.1 L (39.0-53.0) % RDW 18.1 H (11.5-15.5) % Chloride 111 H (98-107) mmol/L BUN 49 H (9-20) mg/dL Creatinine 2.77 H (0.66-1.25) mg/dL POC Glucose (mg/dL) 134 H (75-99) mg/dL Calcium 8.1 L (8.4-10.2) mg/dL Crossmatch 10/31/19 Range/Units 06:52 RBC (4.30-5.90) m/uL Hgb (13.0-17.5) gm/dL Hct (39.0-53.0) % RDW (11.5-15.5) % Chloride (98-107) mmol/L BUN (9-20) mg/dL Creatinine (0.66-1.25) mg/dL POC Glucose (mg/dL) 175 H (75-99) mg/dL Calcium (8.4-10.2) mg/dL Crossmatch Diabetes panel 10/31/19 Range/Units 04:55 Sodium 141 (137-145) mmol/L Potassium 4.9 (3.5-5.1) mmol/L Chloride 111 H (98-107) mmol/L Carbon Dioxide 27 (22-30) mmol/L BUN 49 H (9-20) mg/dL Creatinine 2.77 H (0.66-1.25) mg/dL Glucose 84 (74-99) mg/dL Calcium 8.1 L (8.4-10.2) mg/dL Calcium panel 10/31/19 Range/Units 04:55 Calcium 8.1 L (8.4-10.2) mg/dL Pituitary panel 10/31/19 Range/Units 04:55 Sodium 141 (137-145) mmol/L Potassium 4.9 (3.5-5.1) mmol/L Chloride 111 H (98-107) mmol/L Carbon Dioxide 27 (22-30) mmol/L BUN 49 H (9-20) mg/dL Creatinine 2.77 H (0.66-1.25) mg/dL Glucose 84 (74-99) mg/dL Calcium 8.1 L (8.4-10.2) mg/dL Adrenal panel 10/31/19 Range/Units 04:55 Sodium 141 (137-145) mmol/L Potassium 4.9 (3.5-5.1) mmol/L Chloride 111 H (98-107) mmol/L Carbon Dioxide 27 (22-30) mmol/L BUN 49 H (9-20) mg/dL Creatinine 2.77 H (0.66-1.25) mg/dL Glucose 84 (74-99) mg/dL Calcium 8.1 L (8.4-10.2) mg/dL Assessment and Plan (1) Bleeding duodenal ulcer Narrative/Plan: Patient remains in the ICU after EGD this morning. Continue to monitor for active bleeding. Will remain on surgical standby. Spoke with vp of marketing. Patient has high risk for surgery. If suspicion for recurrent bleeding one o ption would be to transfer to tertiary care center for possible angioembolization. Current Visit: Yes Status: Acute Code(s): K26.4 - CHRONIC OR UNSPECIFIED DUODENAL ULCER WITH HEMORRHAGE SNOMED Code(s): 38615639
[2019-10-31 11:54] LABS: Glucose,Whole Blood 217 mg/dL (75-99)
[2019-10-31] MEDS ORDERED: FUROSEMIDE 10 MG/ML 4 ML VIAL IV STA (13:17)
--- NOTE | 2019-10-31 13:18 | P.PN ---
Subjective Progress Note Date: 10/31/19 Principal diagnosis: Acute upper GI bleeding, blood loss anemia The patient is seen today 10/31/2019 in follow-up in the intensive care unit. He is awake and alert in no acute distress. His hemoglobin was 6.6 earlier this morning. He is receiving his fourth unit of packed red blood cells in total this admission. He did undergo an EGD this morning and was found to have a la rge adherent clot along the duodenal sweep which was removed. A deep ulceration with active bleeding was visible. Epinephrine and Endo Clip placement obtained good hemostasis. There are large clots in the stomach. NG tube remains in place. He remains on Protonix 40 mg every 12 hours. Surgical consult was placed. He is currently afebrile. Hemodynamically stable. He is on 10 L high flow nasal cannula to maintain O2 saturations in the mid 90s. 0.9 normal saline at 50 MLS per hour. Remains on Unasyn. Chest x-ray shows some evidence of fluid volume overload and small effusions. White count 5.1. Creatinine 2.77. Objective - Vital Signs Vital signs: Vital Signs Temp 97.9 F 10/31/19 12:58 Pulse 66 10/31/19 12:58 Resp 14 10/31/19 12:58 BP 105/50 10/31/19 12:58 Pulse Ox 95 10/31/19 12:58 Intake & Output 10/30/19 10/31/19 10/31/19 18:59 06:59 18:59 Intake Total 1460 220 325 Output Total 2110 552 395 Balance -650 -332 -70 Weight 97.5 kg Intake: IV 300 100 275 Ampicillin-Sulbactam 3 gm 100 50 In Sodium Chloride 0.9% 100 ml @ 200 mls/hr IVPB Q12HR [facility] Rx#:[id number] Sodium Chloride 0.9% 1, 300 000 ml @ 100 mls/hr IV . Q10H [facility] Rx#:[id number] Sodium Chloride 0.9% 1, 200 000 ml @ 50 mls/hr IV . Q20H [facility] Rx#:[id number] Intake, IV Titration 50 Amount Sodium Chloride 0.9% 1, 50 000 ml @ 50 mls/hr IV . Q20H [facility] Rx#:[id number] Oral 850 120 Blood Product 310 0 Rc Cpda-1 Unit 310 [id number] Rc Pheresis As-3 Unit 0 [id number] Output: Urine 2110 552 395 Other: Voiding Method Indwelling Catheter Indwelling Catheter Indwelling Catheter - Exam GENERAL EXAM: Alert, very pleasant, 78-year-old male patient, on 10 L per high flow oxygen, comfortable in no apparent distress. HEAD: Normocephalic/atraumatic. EYES: Normal reaction of pupils, equal size. Conjunctiva pink, sclera white. NOSE: Clear with pink turbinates. THROAT: No erythema or exudates. NECK: No masses, no JVD, no thyroid enlargement, no adenopathy. CHEST: No chest wall deformity. Symmetrical expansion. LUNGS: Equal air entry with no crackles, wheeze, rhonchi or dullness. Diminished breath sounds at the bases CVS: Regular rate and rhythm, normal S1 and S2, no gallops, no murmurs, no rubs ABDOMEN: Soft, nontender. No hepatosplenomegaly, normal bowel sounds, no guarding or rigidity. EXTREMITIES: No clubbing, no edema, no cyanosis, 2+ pulses and upper and lower extremities. MUSCULOSKELETAL: Muscle strength and tone normal. SPINE: No scoliosis or deformity SKIN: No rashes CENTRAL NERVOUS SYSTEM: No focal deficits, tone is normal in all 4 extremities. PSYCHIATRIC: Alert and oriented -3. Appropriate affect. Intact judgment and insight. - Labs CBC & Chem 7: 10/31/19 04:55 10/31/19 04:55 Labs: Abnormal Lab Results - Last 24 Hours (Table) 10/28/19 10/30/19 10/30/19 Range/Units 05:14 16:58 20:35 RBC (4.30-5.90) m/uL Hgb (13.0-17.5) gm/dL Hct (39.0-53.0) % RDW (11.5-15.5) % Chloride (98-107) mmol/L BUN (9-20) mg/dL Creatinine (0.66-1.25) mg/dL POC Glucose (mg/dL) 206 H 242 H (75-99) mg/dL Calcium (8.4-10.2) mg/dL Crossmatch See Detail 10/31/19 10/31/19 10/31/19 Range/Units 00:26 04:55 04:55 RBC 2.48 L (4.30-5.90) m/uL Hgb 6.6 L* (13.0-17.5) gm/dL Hct 21.1 L (39.0-53.0) % RDW 18.1 H (11.5-15.5) % Chloride 111 H (98-107) mmol/L BUN 49 H (9-20) mg/dL Creatinine 2.77 H (0.66-1.25) mg/dL POC Glucose (mg/dL) 134 H (75-99) mg/dL Calcium 8.1 L (8.4-10.2) mg/dL Crossmatch 10/31/19 10/31/19 Range/Units 06:52 11:43 RBC (4.30-5.90) m/uL Hgb (13.0-17.5) gm/dL Hct (39.0-53.0) % RDW (11.5-15.5) % Chloride (98-107) mmol/L BUN (9-20) mg/dL Creatinine (0.66-1.25) mg/dL POC Glucose (mg/dL) 175 H 217 H (75-99) mg/dL Calcium (8.4-10.2) mg/dL Crossmatch Assessment and Plan Assessment: #1. Acute blood loss anemia related to upper GI bleeding, patient has received 3 units of packed red blood cells so far and is now receiving a fourth for a hemoglobin of 6.6. EGD was performed today. He was found to have a large adherent clot along the duodenal sweep which was removed. A deep ulceration with active bleeding vessel was noted. He is status post injection of epinephrine and Endo Clip with good hemostasis. Large clots in the stomach. #2. Duodenal ulcer #3. Possible ischemic colitis #4. Acute hypoxic respiratory failure related to bibasilar atelectasis and pleural effusions and fluid overload, currently on 10 L high flow nasal cannula #5. Lactic acidemia secondary to GI bleed and anemia #6. History of obstructive sleep apnea on CPAP #7. History of hyperlipidemia #8. Hypothyroidism #9. Hypertension #10. Diabetes mellitus #11. Degenerative joint disease Plan: The patient was seen and evaluated by Dr. Bradshaw. Chest x-ray and labs reviewed. We will give Lasix 40 mg IVP 1. He is receiving his fourth unit of packed red blood cells for hemoglobin is 6.6. EGD as noted above. Surgical services are on standby for any active bleeding. They feel if bleeding should recur he should be transferred to [facility] for angiography versus surgery based on his clinical status. We'll continue to monitor closely here in the intensive care unit. Continue Protonix 40 every 12 hours. Continue to monitor hemoglobins. Transfuse as needed. We'll continue to follow. I, the cosigning physician, performed a history & physical examination of the patient. Lungs sounds are clear, diminished. Maintaining good O2 saturations in the 90s on 10 L high flow nasal cannula. I discussed the assessment and plan of care with my nurse practitioner, Roxie Ward. I attest to the above note as dictated by her.
--- NOTE | 2019-10-31 13:43 | XR ---
EXAMINATION TYPE: XR chest 1V portable DATE OF EXAM: 10/31/2019 HISTORY: Shortness of breath. REFERENCE: Previous study dated 10/30/2019. FINDINGS: A right internal jugular catheter remains in place, unchanged in appearance. There is bibasilar atelectasis, worse on the right the left. The heart is not enlarged. There are sma ll, bilateral effusions. IMPRESSION: NO SIGNIFICANT INTERVAL CHANGE IN THE APPEARANCE OF THE CHEST.
--- NOTE | 2019-10-31 15:27 | P.PN ---
Subjective Progress Note Date: 10/31/19 Principal diagnosis: GI bleed; status post EGD/colonoscopy Duodenal ulcer/ischemic colitis 10/30/2017 patient seen in follow-up in the intensive care unit; patient's family is at bedside and had multiple questions which were all addressed to her sa pjfaction; patient is status post EGD/colonoscopy which revealed a duodenal ulcer, that was not actively bleeding with a large anterior and clot in the second portion of the duodenum. Colonoscopy revealed ischemic colitis in the left colon with biopsies taken. However the procedure had to be aborted related to poor prep. Lab review shows hemoglobin is 6.8, patient has had 2 units of blood already, and he is receiving an additional unit of blood this morning. Hemodynamically patient is stable, receiving IV fluids, with 0.9 normal saline at a rate of 100 ML per hour. He remains on high flow oxygen, at 10 L and his pulse ox is 92- 93%. Complaints of chest pain, patient does have exertional dyspnea, today's chest x-ray has been reviewed, showing bibasilar atelectasis and bilateral pleur al effusions. Patient is still getting IV fluids at a rate of 100, we will turn it was down, and give the patient a dose of IV Lasix, today's labs have been reviewed, showing white blood cell count 8.3, hemoglobin of 6.8, platelet count 293, sodium was 143, potassium was 5.4, chloride was 117, CO2 was 22, BUN was 53, creatinine was 2.94. No report of any further rectal bleeding; we will continue to monitor H&H closely and transfuse when needed 10/31/2019 patient is seen and evaluatedin follow-up in the intensive care unit. He is awake and alert in no acute distress. His hemoglobin was 6.6 earlier this morning. He is receiving his fourth unit of packed red blood cells in total this admission. He did undergo an EGD this morning and was found to have a large adherent clot along the duodenal sweep which was removed. A deep ulceration with active bleeding was visible. Epinephrine and Endo Clip placement obtained good hemostasis. There are large clots in the stomach. NG tube remains in place. He remains on Protonix 40 mg every 12 hours. Surgical consult was placed. He is currently afebrile. Hemodynamically stable. He is on 10 L high flow nasal cannula to maintain O2 saturations in the mid 90s. 0.9 normal saline at 50 MLS per hour. Remains on Unasyn. Chest x-ray shows some evidence of fluid volume overload and small effusions. White count 5.1. Creatinine 2.77. patient's family is at bedside and on inquiring about transferring the [facility]; did advise and son that patient is unstable at this time and family will have to discuss this with case management on Saturday Objective - Vital Signs Vital signs: Vital Signs Temp 98 F 10/31/19 12:00 Pulse 64 10/31/19 12:00 Resp 13 10/31/19 12:00 BP 100/41 10/31/19 12:00 Pulse Ox 97 10/31/19 12:00 Intake & Output 10/30/19 10/31/19 10/31/19 18:59 06:59 18:59 Intake Total 1460 220 325 Output Total 2110 552 395 Balance -650 -332 -70 Weight 97.5 kg Intake: IV 300 100 275 Ampicillin-Sulbactam 3 gm 100 50 In Sodium Chloride 0.9% 100 ml @ 200 mls/hr IVPB Q12HR [facility] Rx#:[id number] Sodium Chloride 0.9% 1, 300 000 ml @ 100 mls/hr IV . Q10H [facility] Rx#:[id number] Sodium Chloride 0.9% 1, 200 000 ml @ 50 mls/hr IV . Q20H [facility] Rx#:[id number] Intake, IV Titration 50 Amount Sodium Chloride 0.9% 1, 50 000 ml @ 50 mls/hr IV . Q20H [facility] Rx#:[id number] Oral 850 120 Blood Product 310 Rc Cpda-1 Unit 310 [id number] Output: Urine 2110 552 395 Other: Voiding Method Indwelling Catheter Indwelling Catheter Indwelling Catheter - Exam PHYSICAL EXAMINATION: GENERAL: The patient is alert and oriented x3, not in any acute distress. Well developed, well nourished. HEENT: Pupils are round and equally reacting to light. EOMI. No scleral icterus. No conjunctival pallor. Normocephalic, atraumatic. No pharyngeal erythema. No thyromegaly. CARDIOVASCULAR: S1 and S2 present. No murmurs, rubs, or gallops. PULMONARY: Chest is clear to auscultation, no wheezing or crackles. ABDOMEN: Soft, nontender, nondistended, normoactive bowel sounds. No palpable organomegaly. MUSCULOSKELETAL: No joint swelling or deformity. EXTREMITIES: No cyanosis, clubbing, or pedal edema. NEUROLOGICAL: Gross neurological examination did not reveal any focal deficits. SKIN: No rashes. - Labs CBC & Chem 7: 10/31/19 04:55 10/31/19 04:55 Labs: Abnormal Lab Results - Last 24 Hours (Table) 10/28/19 10/30/19 10/30/19 Range/Units 05:14 16:58 20:35 RBC (4.30-5.90) m/uL Hgb (13.0-17.5) gm/dL Hct (39.0-53.0) % RDW (11.5-15.5) % Chloride (98-107) mmol/L BUN (9-20) mg/dL Creatinine (0.66-1.25) mg/dL POC Glucose (mg/dL) 206 H 242 H (75-99) mg/dL Calcium (8.4-10.2) mg/dL Crossmatch See Detail 10/31/19 10/31/19 10/31/19 Range/Units 00:26 04:55 04:55 RBC 2.48 L (4.30-5.90) m/uL Hgb 6.6 L* (13.0-17.5) gm/dL Hct 21.1 L (39.0-53.0) % RDW 18.1 H (11.5-15.5) % Chloride 111 H (98-107) mmol/L BUN 49 H (9-20) mg/dL Creatinine 2.77 H (0.66-1.25) mg/dL POC Glucose (mg/dL) 134 H (75-99) mg/dL Calcium 8.1 L (8.4-10.2) mg/dL Crossmatch 10/31/19 10/31/19 Range/Units 06:52 11:43 RBC (4.30-5.90) m/uL Hgb (13.0-17.5) gm/dL Hct (39.0-53.0) % RDW (11.5-15.5) % Chloride (98-107) mmol/L BUN (9-20) mg/dL Creatinine (0.66-1.25) mg/dL POC Glucose (mg/dL) 175 H 217 H (75-99) mg/dL Calcium (8.4-10.2) mg/dL Crossmatch Assessment and Plan Assessment: Acute blood loss anemia - Patient is status post EGD/colonoscopy which revealed duodenal ulcer without any active bleeding with the large interior clot in the second portion of duodenum; colonoscopy revealed ischemic colitis and left colon; by this is done and results are pending patient will need upper GI endoscopy gastric body was consulted will transfuse him 2 units of blood and patient is bit hypotensive continue with IV fluids at 100 mL/h hold off on antidepressant medications except for metoprolol. Patient is presently on Protonix IV twice a day -Current artery disease continue with metoprolol hold off rest of the blood pressure medications and aspirin because of GI bleed -Hypertension patient is presently hypotensive secondary to GI bleed holding off on lisinopril, hydralazine. -Renal failure: I do not have any previous creatinine available patient denied any history of chronic kidney disease, patient may have acute renal failure from prerenal azotemia from acute GI bleed. 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 -Continued nicotine use: Counseling was provided for above-mentioned chronic medical problems patient will be resumed on appropriate home medications.
[2019-10-31 16:46] LABS: Glucose,Whole Blood 124 mg/dL (75-99)
[2019-10-31 17:30] LABS: Glucose,Whole Blood 152 mg/dL (75-99)
[2019-10-31] MEDS: ATORVASTATIN 10 MG TAB PO SCH (20:06)
[2019-10-31 20:52] LABS: Glucose,Whole Blood 103 mg/dL (75-99)
[2019-10-31 20:56] LABS: Anisocytosis Slight; Basophils % (A) 1 %; Eosinophils # (A) 0.1 k/uL (0-0.7); Eosinophils % (A) 3 %; HCT 24.8 % (39.0-53.0); HGB 7.9 gm/dL (13.0-17.5); Lymphocytes % (A) 19 %; MCH 27.2 pg (25.0-35.0); MCHC 31.7 g/dL (31.0-37.0); Mean Platelet Volume 7.5; Monocytes # (A) 0.2 k/uL (0-1.0); Monocytes % (A) 5 %; Neutrophils # (A) 3.9 k/uL (1.3-7.7); Neutrophils % (A) 72 %; Platelet Count 282 k/uL (150-450); RBC 2.88 m/uL (4.30-5.90); RDW 17.7 % (11.5-15.5); WBC 5.4 k/uL (3.8-10.6)
[2019-11-01] MEDS: PREGABALIN 50 MG CAP PO SCH ×3 (00:03→21:46)
[2019-11-01] MEDS: METOPROLOL TARTRATE 50 MG TAB PO SCH ×3 (00:03→21:46)
[2019-11-01] MEDS ORDERED: MELATONIN 5 MG TABLET PO ONE (00:49)
[2019-11-01] MEDS ORDERED: QUEtiapine 25 MG TAB PO STA (02:19)
[2019-11-01] MEDS: SODIUM CHLORIDE 0.9% 1,000 ML IV SCH ×2 (04:52→21:48)
[2019-11-01 04:53] LABS: Anisocytosis Slight; Basophils % (A) 1 %; Eosinophils # (A) 0.2 k/uL (0-0.7); Eosinophils % (A) 3 %; HCT 22.7 % (39.0-53.0); HGB 7.3 gm/dL (13.0-17.5); Hypochromasia Slight; Lymphocytes % (A) 20 %; MCV 87.5 fL (80.0-100.0); Mean Platelet Volume 7.6; Monocytes # (A) 0.3 k/uL (0-1.0); Monocytes % (A) 6 %; Neutrophils # (A) 3.5 k/uL (1.3-7.7); Neutrophils % (A) 68 %; Platelet Count 281 k/uL (150-450); RBC 2.59 m/uL (4.30-5.90); RDW 17.6 % (11.5-15.5); WBC 5.1 k/uL (3.8-10.6)
[2019-11-01 05:07] LABS: Calcium 8.4 mg/dL (8.4-10.2); Potassium 4.9 mmol/L (3.5-5.1)
[2019-11-01] MEDS: LEVOTHYROXINE 125 MCG TAB PO SCH (06:11)
--- NOTE | 2019-11-01 06:11 | XR ---
EXAMINATION TYPE: XR chest 1V portable DATE OF EXAM: 11/01/2019 HISTORY: Shortness of breath. REFERENCE: Previous study dated 10/31/2019. FINDINGS: There is right basilar atelectasis. There is minimal left basilar airspace disease. There a re small, bilateral effusions. The heart is not enlarged. IMPRESSION: NO SIGNIFICANT CHANGE IN THE APPEARANCE OF THE CHEST.
[2019-11-01] MEDS: INSULIN ASPART (NovoLOG) 100 UNIT/ML VIAL SQ SCH ×4 (06:34→21:45)
[2019-11-01 06:39] LABS: Glucose,Whole Blood 99 mg/dL (75-99)
--- NOTE | 2019-11-01 08:03 | P.PN ---
Subjective Progress Note Date: 11/01/19 Principal diagnosis: Acute upper GI bleeding, blood loss anemia The patient is seen today 10/31/2019 in follow-up in the intensive care unit. He is awake and alert in no acute distress. His hemoglobin was 6.6 earlier this morning. He is receiving his fourth unit of packed red blood cells in total this admission. He did undergo an EGD this morning and was found to have a la rge adherent clot along the duodenal sweep which was removed. A deep ulceration with active bleeding was visible. Epinephrine and Endo Clip placement obtained good hemostasis. There are large clots in the stomach. NG tube remains in place. He remains on Protonix 40 mg every 12 hours. Surgical consult was placed. He is currently afebrile. Hemodynamically stable. He is on 10 L high flow nasal cannula to maintain O2 saturations in the mid 90s. 0.9 normal saline at 50 MLS per hour. Remains on Unasyn. Chest x-ray shows some evidence of fluid volume overload and small effusions. White count 5.1. Creatinine 2.77. The patient is seen today 11/01/2018 in follow-up in the intensive care unit. He is currently awake and alert in no acute distress. Resting comfortably in bed. He has some vague abdominal discomfort. He has had one black tarry stool in the past 24 hours. Denies any worsening shortness of breath, cough or congestion. He is maintaining O2 saturations in the 90s on 8 L high flow nasal cannula. Chest x-ray reveals a right basilar atelectasis with minimal left basi lar airspace disease. Small effusions. No significant change. He is status post 4 units packed red blood cells this admission. Current hemoglobin 7.3. 0.9 normal saline at 50 MLS per hour. He did undergo EGD done yesterday with epinephrine and clipping to an actively bleeding duodenal ulcer. Surgical services are on standby. White count 5.1. Creatinine 2.70. He is currently on Unasyn. He received a dose of IV Lasix yesterday. Currently in a negative balance. Objective - Vital Signs Vital signs: Vital Signs Temp 99 F 11/01/19 04:00 Pulse 68 11/01/19 07:00 Resp 11 L 11/01/19 07:00 BP 139/55 11/01/19 07:00 Pulse Ox 95 11/01/19 07:00 Intake & Output 10/31/19 11/01/19 11/01/19 18:59 06:59 18:59 Intake Total 935 750 50 Output Total 995 1620 70 Balance -60 -870 -20 Weight 95.7 kg Intake: IV 575 700 50 Ampicillin-Sulbactam 3 gm 50 100 In Sodium Chloride 0.9% 100 ml @ 200 mls/hr IVPB Q12HR [facility] Rx#:[id number] Sodium Chloride 0.9% 1, 500 600 50 000 ml @ 50 mls/hr IV . Q20H [facility] Rx#:[id number] Intake, IV Titration 50 Amount Sodium Chloride 0.9% 1, 50 000 ml @ 50 mls/hr IV . Q20H [facility] Rx#:[id number] Oral 50 Blood Product 310 Rc Pheresis As-3 Unit 310 [id number] Output: Urine 995 1620 70 Other: Voiding Method Indwelling Catheter Indwelling Catheter - Exam GENERAL EXAM: Alert, very pleasant, 78-year-old male patient, on 8 L per high flow oxygen, comfortable in no apparent distress. HEAD: Normocephalic/atraumatic. EYES: Normal reaction of pupils, equal size. Conjunctiva pink, sclera white. NOSE: Clear with pink turbinates. THROAT: No erythema or exudates. NECK: No masses, no JVD, no thyroid enlargement, no adenopathy. CHEST: No chest wall deformity. Symmetrical expansion. LUNGS: Equal air entry with no crackles, wheeze, rhonchi or dullness. Diminished breath sounds at the bases CVS: Regular rate and rhythm, normal S1 and S2, no gallops, no murmurs, no rubs ABDOMEN: Soft, nontender. No hepatosplenomegaly, normal bowel sounds, no guarding or rigidity. EXTREMITIES: No clubbing, no edema, no cyanosis, 2+ pulses and upper and lower extremities. MUSCULOSKELETAL: Muscle strength and tone normal. SPINE: No scoliosis or deformity SKIN: No rashes CENTRAL NERVOUS SYSTEM: No focal deficits, tone is normal in all 4 extremities. PSYCHIATRIC: Alert and oriented -3. Appropriate affect. Intact judgment and insight. - Labs CBC & Chem 7: 11/01/19 04:40 11/01/19 04:40 Labs: Abnormal Lab Results - Last 24 Hours (Table) 10/28/19 10/30/19 10/31/19 Range/Units 05:14 07:26 11:43 RBC (4.30-5.90) m/uL Hgb (13.0-17.5) gm/dL Hct (39.0-53.0) % RDW (11.5-15.5) % Chloride (98-107) mmol/L BUN (9-20) mg/dL Creatinine (0.66-1.25) mg/dL POC Glucose (mg/dL) 124 H 217 H (75-99) mg/dL Crossmatch See Detail 10/31/19 10/31/19 10/31/19 Range/Units 17:19 20:30 20:41 RBC 2.88 L (4.30-5.90) m/uL Hgb 7.9 L (13.0-17.5) gm/dL Hct 24.8 L (39.0-53.0) % RDW 17.7 H (11.5-15.5) % Chloride (98-107) mmol/L BUN (9-20) mg/dL Creatinine (0.66-1.25) mg/dL POC Glucose (mg/dL) 152 H 103 H (75-99) mg/dL Crossmatch 11/01/19 11/01/19 Range/Units 04:40 04:40 RBC 2.59 L (4.30-5.90) m/uL Hgb 7.3 L (13.0-17.5) gm/dL Hct 22.7 L (39.0-53.0) % RDW 17.6 H (11.5-15.5) % Chloride 112 H (98-107) mmol/L BUN 47 H (9-20) mg/dL Creatinine 2.70 H (0.66-1.25) mg/dL POC Glucose (mg/dL) (75-99) mg/dL Crossmatch Assessment and Plan Assessment: #1. Acute blood loss anemia related to upper GI bleeding, patient has received 3 units of packed red blood cells so far and is now receiving a fourth for a hemoglobin of 6.6. EGD was performed 08/01/2019. He was found to have a large adherent clot along the duodenal sweep which was removed. A deep ulceration with active bleeding vessel was noted. He is status post injection of epinephrine and Endo Clip with good hemostasis. Large clots in the stomach. S urgical services on standby. #2. Duodenal ulcer #3. Possible ischemic colitis #4. Acute hypoxic respiratory failure related to bibasilar atelectasis and pleural effusions and fluid overload, currently on 8 L high flow nasal cannula #5. Lactic acidemia secondary to GI bleed and anemia #6. History of obstructive sleep apnea on CPAP #7. History of hyperlipidemia #8. Hypothyroidism #9. Hypertension #10. Diabetes mellitus #11. Degenerative joint disease #12. Chronic tobacco dependence. Plan: The patient was seen and evaluated by Dr. Bradshaw. Chest x-ray and labs reviewed. And DuoNeb inhalations 4 times a day and when necessary, Pulmicort and Perforomist inhalations twice a day. Titrate down the FiO2 as tolerated. We'll continue to monitor closely here in the intensive care unit. Continue Protonix 40 every 12 hours. Continue to monitor hemoglobins. Transfuse as needed. We'll continue to follow. If the patient should develop any recurrence of active GI bleeding he may need to be transferred to a tertiary care center. I, the cosigning physician, performed a history & physical examination of the patient. Lungs sounds are clear, diminished. Maintaining good O2 saturations in the 90s on 8 L high flow nasal cannula. I discussed the assessment and plan of care with my nurse practitioner, Roxie Ward. I attest to the above note as dictated by her.
[2019-11-01] MEDS: AMPICILLIN-SULBACTAM 3 GM in SODIUM CHLORIDE 0.9% 100 ML IVPB SCH ×2 (08:16→21:44)
[2019-11-01] MEDS: LIOTHYRONINE SODIUM 5 MCG TAB PO SCH (08:17)
[2019-11-01] MEDS: PANTOPRAZOLE 40 MG/10 ML VIAL IV SCH ×2 (08:17→21:43)
[2019-11-01] MEDS: LIDOCAINE 5% PATCH TOPICAL SCH (08:18)
[2019-11-01] MEDS: LINAGLIPTIN 5 MG TABLET PO SCH (08:24)
--- NOTE | 2019-11-01 09:46 | PN ---
PROGRESS NOTE DATE OF SERVICE: November 01, 2019 Patient is a 78-year-old pleasant white male admitted to the hospital with acute GI bleed. He had an initial upper endoscopy 3 days ago that showed a large duodenal ulcer with adherent clot. He had more bleeding yesterday requiring 2 units of PRBC transfusion and hence he had a repeat upper endoscopy yesterday that revealed a large duodenal ulcer along the duodenal sweep with an adherent clot that was removed and subsequently Endoclips were placed along with injection epinephrine. The patient following the procedure, had 2 episodes of small dark colored stools. This morning he is feeling better. No abdominal pain. No nausea, vomiting. NG tube in place with only bilious return. PHYSICAL EXAMINATION: Appears comfortable. No apparent distress. VITAL SIGNS: Stable. Blood pressure is 148/61, pulse 62, temperature 98. HEENT examination unremarkable. Conjunctivae pink. Sclerae anicteric. Oral cavity no lesions. NECK: No JVD or lymph node enlargement. CHEST: Clear to auscultation. HEART: Regular rate and rhythm. ABDOMEN: Soft, it was non-distended, nontender. Bowel sounds are positive. EXTREMITIES no pedal edema. SKIN no rashes. NEUROLOGIC: Alert and oriented x3. No focal deficits. LABS: From today WBC 5.1, hemoglobin 7.3, platelets normal. BUN 47, creatinine 2.70 IMPRESSION: Acute upper gastrointestinal bleed, status post EGD yesterday that revealed a large duodenal ulcer along the duodenal sweep with actively bleeding visible vessel, status post injection epinephrine with Endoclip placement. He received total 4 units of PRBC transfusion since admission to the hospital. Hemoglobin stable at 7.3 g/dL. He had 2 small black tarry stools last night. Hemodynamically stable. RECOMMENDATIONS: 1. Continue with IV proton pump inhibitor. 2. CBC q.12 hours and transfuse as needed. 3. Start him on a clear liquid diet. Thank you for this consultation. MMODL / IJN: [id number] /
[2019-11-01] MEDS: NICOTINE 14MG/24HR PATCH TRANSDERM SCH (10:26)
[2019-11-01] MEDS: methylPREDNISolone SOD SUCCI 40 MG/ML 1 ML VIAL IV SCH ×2 (10:26→17:18)
--- NOTE | 2019-11-01 10:41 | P.PN ---
Subjective Progress Note Date: 11/01/19 Principal diagnosis: duodenal ulcer patient did well overnight. More alert today. Hemoglobin went from 6.6-7.9 after 1 unit. Today the hemoglobin is down to 7.3. He had a small black stool around 6:00 this morning. Denies abdominal pain. Vital signs stable. Objective - Vital Signs Vital signs: Vital Signs Temp 98 F 11/01/19 08:00 Pulse 58 L 11/01/19 10:00 Resp 10 L 11/01/19 10:00 BP 107/51 11/01/19 10:00 Pulse Ox 97 11/01/19 10:36 Intake & Output 10/31/19 11/01/19 11/01/19 18:59 06:59 18:59 Intake Total 935 750 250 Output Total 995 1620 290 Balance -60 -870 -40 Weight 95.7 kg Intake: IV 575 700 250 Ampicillin-Sulbactam 3 gm 50 100 100 In Sodium Chloride 0.9% 100 ml @ 200 mls/hr IVPB Q12HR [facility] Rx#:[id number] Sodium Chloride 0.9% 1, 500 600 150 000 ml @ 50 mls/hr IV . Q20H [facility] Rx#:[id number] Intake, IV Titration 50 Amount Sodium Chloride 0.9% 1, 50 000 ml @ 50 mls/hr IV . Q20H [facility] Rx#:[id number] Oral 50 Blood Product 310 Rc Pheresis As-3 Unit 310 [id number] Output: Urine 995 1620 290 Other: Voiding Method Indwelling Catheter Indwelling Catheter Indwelling Catheter - Exam Abdomen: Soft, nontender, nondistended - Labs CBC & Chem 7: 11/01/19 04:40 11/01/19 04:40 Labs: Abnormal Lab Results - Last 24 Hours (Table) 10/28/19 10/30/19 10/31/19 Range/Units 05:14 07:26 11:43 RBC (4.30-5.90) m/uL Hgb (13.0-17.5) gm/dL Hct (39.0-53.0) % RDW (11.5-15.5) % Chloride (98-107) mmol/L BUN (9-20) mg/dL Creatinine (0.66-1.25) mg/dL POC Glucose (mg/dL) 124 H 217 H (75-99) mg/dL Crossmatch See Detail 10/31/19 10/31/19 10/31/19 Range/Units 17:19 20:30 20:41 RBC 2.88 L (4.30-5.90) m/uL Hgb 7.9 L (13.0-17.5) gm/dL Hct 24.8 L (39.0-53.0) % RDW 17.7 H (11.5-15.5) % Chloride (98-107) mmol/L BUN (9-20) mg/dL Creatinine (0.66-1.25) mg/dL POC Glucose (mg/dL) 152 H 103 H (75-99) mg/dL Crossmatch 11/01/19 11/01/19 Range/Units 04:40 04:40 RBC 2.59 L (4.30-5.90) m/uL Hgb 7.3 L (13.0-17.5) gm/dL Hct 22.7 L (39.0-53.0) % RDW 17.6 H (11.5-15.5) % Chloride 112 H (98-107) mmol/L BUN 47 H (9-20) mg/dL Creatinine 2.70 H (0.66-1.25) mg/dL POC Glucose (mg/dL) (75-99) mg/dL Crossmatch Assessment and Plan (1) Bleeding duodenal ulcer Narrative/Plan: patient doing better at this time. Continue to monitor hemoglobin. Keep nasogastric tube until tomorrow morning. May have ice chips. Current Visit: Yes Status: Acute Code(s): K26.4 - CHRONIC OR UNSPECIFIED DUODENAL ULCER WITH HEMORRHAGE SNOMED Code(s): 12034691
[2019-11-01 11:27] LABS: Glucose,Whole Blood 128 mg/dL (75-99)
[2019-11-01] MEDS: IPRATROPIUM-ALBUTEROL 3 ML NEB INHALATION SCH ×3 (11:39→19:10)
[2019-11-01 13:51] LABS: Glucose,Whole Blood 105 mg/dL (75-99)
[2019-11-01] MEDS: NOREPINEPHRINE 8 MG in SODIUM CHLORIDE 0.9% 250 ML IV SCH (14:00)
[2019-11-01 14:21] LABS: Albumin 2.1 g/dL (3.5-5.0); Calcium 8.1 mg/dL (8.4-10.2); Potassium 4.8 mmol/L (3.5-5.1); Total Bilirubin 0.5 mg/dL (0.2-1.3); Total Protein 4.4 g/dL (6.3-8.2)
[2019-11-01 14:25] LABS: Anisocytosis Slight; Basophils % (A) 1 %; Eosinophils # (A) 0.2 k/uL (0-0.7); Eosinophils % (A) 3 %; Hypochromasia Moderate; Lymphocytes # (A) 1.2 k/uL (1.0-4.8); Lymphocytes % (A) 21 %; MCH 27.3 pg (25.0-35.0); MCHC 30.6 g/dL (31.0-37.0); MCV 89.4 fL (80.0-100.0); Mean Platelet Volume 7.6; Monocytes # (A) 0.4 k/uL (0-1.0); Monocytes % (A) 7 %; Neutrophils # (A) 3.8 k/uL (1.3-7.7); Neutrophils % (A) 67 %; Partial Thromboplastin Time 28.3 sec (22.0-30.0); Platelet Count 263 k/uL (150-450); Prothrombin Time 10.6 sec (9.0-12.0); RDW 17.4 % (11.5-15.5); WBC 5.8 k/uL (3.8-10.6)
[2019-11-01] MEDS: LACTATED RINGERS 1,000 ML IV SCH ×6 (14:27→19:01)
[2019-11-01 14:33] LABS: HCT 19.6 % (39.0-53.0)
--- NOTE | 2019-11-01 15:52 | P.PN ---
Progress Note - Text Progress Note Date: 11/01/19 after I rounded on this patient he pulled his own nasogastric tube out. Unfortunately a few hours later the patient had a large bloody stool and was found to be hypotensive with diaphoresis. Stool was maroon in color. Blood was ordered. Upon my evaluation patient is in Trendelenburg. Remains diaphoretic. States he still feels like he is passing stool. 1 unit of blood has been given already. He is on 4 mics of Levophed. Recent systolic blood pressure in the 80s. clinical scenario discussed with his 2 sons and . Initially there was discussion about possible transfer for angioembolization however given the patient's continued instability I do not feel he is an adequate candidate for transfer. We'll proceed with exploratory laparotomy with control of bleeding duodenal ulcer. Risks of rebleeding, infection, dehiscence, abscess, hernia, respiratory and cardiac complications, anesthesia related complications including . They understand and wish to proceed.
[2019-11-01] MEDS ORDERED: fentaNYL (PF) 50 MCG/ML 2 ML AMP ONE (16:26)
[2019-11-01] MEDS ORDERED: ROCURONIUM BROMIDE 10 MG/ML 10 ML VIAL IV ONE (16:26)
[2019-11-01] MEDS ORDERED: GLYCOPYRROLATE 0.2 MG/ML 2 ML VIAL ONE (16:26)
[2019-11-01] MEDS ORDERED: SUCCINYLCHOLINE CHLORIDE 100 MG/5 ML SYR IV ONE (16:26)
[2019-11-01] MEDS ORDERED: NEOSTIGMINE 1 MG/ML 10 ML VIAL ONE (16:26)
[2019-11-01] MEDS ORDERED: PROPOFOL 10 MG/ML 20 ML VIAL IV ONE (16:26)
[2019-11-01] MEDS ORDERED: SODIUM CHLORIDE 0.9% 1,000 ML IV ONE (16:29)
[2019-11-01] MEDS ORDERED: IV FLUID CONTINUATION 1,000 ML IV ONE (16:29)
[2019-11-01] MEDS ORDERED: LACTATED RINGERS 1,000 ML IV ONE (16:29)
[2019-11-01] MEDS ORDERED: ceFAZolin 1,000 MG VIAL IV ONE (17:00)
--- NOTE | 2019-11-01 18:13 | P.PN ---
Subjective Progress Note Date: 11/01/19 Principal diagnosis: GI bleed; status post EGD/colonoscopy Duodenal ulcer/ischemic colitis 10/30/2017 patient seen in follow-up in the intensive care unit; patient's family is at bedside and had multiple questions which were all addressed to her sa pjfaction; patient is status post EGD/colonoscopy which revealed a duodenal ulcer, that was not actively bleeding with a large anterior and clot in the second portion of the duodenum. Colonoscopy revealed ischemic colitis in the left colon with biopsies taken. However the procedure had to be aborted related to poor prep. Lab review shows hemoglobin is 6.8, patient has had 2 units of blood already, and he is receiving an additional unit of blood this morning. Hemodynamically patient is stable, receiving IV fluids, with 0.9 normal saline at a rate of 100 ML per hour. He remains on high flow oxygen, at 10 L and his pulse ox is 92- 93%. Complaints of chest pain, patient does have exertional dyspnea, today's chest x-ray has been reviewed, showing bibasilar atelectasis and bilateral pleur al effusions. Patient is still getting IV fluids at a rate of 100, we will turn it was down, and give the patient a dose of IV Lasix, today's labs have been reviewed, showing white blood cell count 8.3, hemoglobin of 6.8, platelet count 293, sodium was 143, potassium was 5.4, chloride was 117, CO2 was 22, BUN was 53, creatinine was 2.94. No report of any further rectal bleeding; we will continue to monitor H&H closely and transfuse when needed 10/31/2019 patient is seen and evaluatedin follow-up in the intensive care unit. He is awake and alert in no acute distress. His hemoglobin was 6.6 earlier this morning. He is receiving his fourth unit of packed red blood cells in total this admission. He did undergo an EGD this morning and was found to have a large adherent clot along the duodenal sweep which was removed. A deep ulceration with active bleeding was visible. Epinephrine and Endo Clip placement obtained good hemostasis. There are large clots in the stomach. NG tube remains in place. He remains on Protonix 40 mg every 12 hours. Surgical consult was placed. He is currently afebrile. Hemodynamically stable. He is on 10 L high flow nasal cannula to maintain O2 saturations in the mid 90s. 0.9 normal saline at 50 MLS per hour. Remains on Unasyn. Chest x-ray shows some evidence of fluid volume overload and small effusions. White count 5.1. Creatinine 2.77. patient's family is at bedside and on inquiring about transferring the patient to [place]; did advise and son that patient is unstable at this time and family will have to discuss this with case management on Saturday11/01/2019 Patient is seen and evaluated in the room at bedside; patient has been having profuse rectal bleeding; patient underwent EGD which showed bleeding duodenal ulcer, Endo Clip was applied; patient had an episode of dark stools during the night but started bleeding profusely this afternoon; stat H&H is done which shows hemoglobin at 6.0; patient has been started on IV Levophed to maintain blood pressure; patient was evaluated by GI, ICU team and surgery and was recommended transferred to a tertiary care center; [facility] was consulted and transfer arrangements to [facility] surgical ICU were made; patient was deemed unstable for transfer and is taken to OR by the surgical team Objective - Vital Signs Vital signs: Vital Signs Temp 99.0 F 11/01/19 16:54 Pulse 69 11/01/19 16:54 Resp 16 11/01/19 16:54 BP 78/42 11/01/19 16:54 Pulse Ox 95 11/01/19 16:54 Intake & Output 10/31/19 11/01/19 11/01/19 18:59 06:59 18:59 Intake Total 878 209 9301 Output Total 995 1620 485 Balance -60 -870 4725 Weight 95.7 kg 95.7 kg Intake: IV 328 676 8521 Ampicillin-Sulbactam 3 gm 50 100 100 In Sodium Chloride 0.9% 100 ml @ 200 mls/hr IVPB Q12HR [facility] Rx#:[id number] Lactated Ringers 1,000 ml 2250 @ 999 mls/hr IV .Q1H1M [facility] Rx#:[id number] Sodium Chloride 0.9% 1, 500 600 500 000 ml @ 50 mls/hr IV . Q20H [facility] Rx#:[id number] Intake, IV Titration 50 Amount Sodium Chloride 0.9% 1, 50 000 ml @ 50 mls/hr IV . Q20H [facility] Rx#:[id number] Oral 50 Blood Product 310 2360 Ffp 24 Cpda Unit 235 [id number] Rc As-1 Unit 310 [id number] Rc As-1 Unit 310 [id number] Rc As-1 Unit 310 [id number] Rc Pheresis 2 As3 Unit 310 [id number] Rc Pheresis As-3 Unit 310 [id number] Output: Urine 995 1620 485 Other: Voiding Method Indwelling Catheter Indwelling Catheter Indwelling Catheter - Exam PHYSICAL EXAMINATION: GENERAL: The patient is alert and oriented x3, not in any acute distress. Well developed, well nourished. HEENT: Pupils are round and equally reacting to light. EOMI. No scleral icterus. No conjunctival pallor. Normocephalic, atraumatic. No pharyngeal erythema. No thyromegaly. CARDIOVASCULAR: S1 and S2 present. No murmurs, rubs, or gallops. PULMONARY: Chest is clear to auscultation, no wheezing or crackles. ABDOMEN: Soft, nontender, nondistended, normoactive bowel sounds. No palpable organomegaly. MUSCULOSKELETAL: No joint swelling or deformity. EXTREMITIES: No cyanosis, clubbing, or pedal edema. NEUROLOGICAL: Gross neurological examination did not reveal any focal deficits. SKIN: No rashes. - Labs CBC & Chem 7: 11/01/19 13:35 11/01/19 13:35 Labs: Abnormal Lab Results - Last 24 Hours (Table) 10/31/19 10/31/19 11/01/19 Range/Units 20:30 20:41 04:40 RBC 2.88 L 2.59 L (4.30-5.90) m/uL Hgb 7.9 L 7.3 L (13.0-17.5) gm/dL Hct 24.8 L 22.7 L (39.0-53.0) % MCHC (31.0-37.0) g/dL RDW 17.7 H 17.6 H (11.5-15.5) % Chloride (98-107) mmol/L BUN (9-20) mg/dL Creatinine (0.66-1.25) mg/dL Glucose (74-99) mg/dL POC Glucose (mg/dL) 103 H (75-99) mg/dL Calcium (8.4-10.2) mg/dL AST (17-59) U/L Total Protein (6.3-8.2) g/dL Albumin (3.5-5.0) g/dL Crossmatch 11/01/19 11/01/19 11/01/19 Range/Units 04:40 11:16 13:35 RBC (4.30-5.90) m/uL Hgb (13.0-17.5) gm/dL Hct (39.0-53.0) % MCHC (31.0-37.0) g/dL RDW (11.5-15.5) % Chloride 112 H (98-107) mmol/L BUN 47 H (9-20) mg/dL Creatinine 2.70 H (0.66-1.25) mg/dL Glucose (74-99) mg/dL POC Glucose (mg/dL) 128 H (75-99) mg/dL Calcium (8.4-10.2) mg/dL AST (17-59) U/L Total Protein (6.3-8.2) g/dL Albumin (3.5-5.0) g/dL Crossmatch See Detail 11/01/19 11/01/19 11/01/19 Range/Units 13:35 13:35 13:39 RBC 2.20 L (4.30-5.90) m/uL Hgb 6.0 L* (13.0-17.5) gm/dL Hct 19.6 L* (39.0-53.0) % MCHC 30.6 L (31.0-37.0) g/dL RDW 17.4 H (11.5-15.5) % Chloride 114 H (98-107) mmol/L BUN 45 H (9-20) mg/dL Creatinine 2.79 H (0.66-1.25) mg/dL Glucose 100 H (74-99) mg/dL POC Glucose (mg/dL) 105 H (75-99) mg/dL Calcium 8.1 L (8.4-10.2) mg/dL AST 15 L (17-59) U/L Total Protein 4.4 L (6.3-8.2) g/dL Albumin 2.1 L (3.5-5.0) g/dL Crossmatch Assessment and Plan Assessment: Acute blood loss anemia - Patient is status post EGD/colonoscopy which revealed duodenal ulcer without any active bleeding with the large interior clot in the second portion of duodenum; colonoscopy revealed ischemic colitis and left colon; by this is done and results are pending patient will need upper GI endoscopy gastric body was consulted will transfuse him 2 units of blood and patient is bit hypotensive continue with IV fluids at 100 mL/h hold off on antidepressant medications except for metoprolol. Patient is presently on Protonix IV twice a day -Current artery disease continue with metoprolol hold off rest of the blood pressure medications and aspirin because of GI bleed -Hypertension patient is presently hypotensive secondary to GI bleed holding off on lisinopril, hydralazine. -Renal failure: I do not have any previous creatinine available patient denied any history of chronic kidney disease, patient may have acute renal failure from prerenal azotemia from acute GI bleed. 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 -Continued nicotine use: Counseling was provided for above-mentioned chronic medical problems patient will be resumed on appropriate home medications. Time with Patient: Greater than 30
[2019-11-01] MEDS ORDERED: HYDROmorphone 1 MG/ML 1 ML SYRINGE IVP PRN (19:06)
[2019-11-01] MEDS: BUDESONIDE 1 MG/2 ML NEBU INHALATION SCH (19:10)
[2019-11-01] MEDS: FORMOTEROL FUMARATE 20 MCG/2 ML NEBU INHALATION SCH (19:10)
--- NOTE | 2019-11-01 19:15 | P.OP ---
Date of Procedure: 11/01/19 Procedure(s) Performed: PREOPERATIVE DIAGNOSIS: bleeding duodenal ulcer POSTOPERATIVE DIAGNOSIS: same PROCEDURE: exploratory laparotomy with duodenotomy and oversewing of bleeding duodenal ulcer SURGEON: Ирина EBL: 25 Jenniffer ANESTHESIA: Gen. COMPLICATIONS: None OPERATIVE PROCEDURE: patient brought to the operating room and placed under general anesthesia. Abdomen was prepped and draped sterilely. A midline incision was created extending from the subxiphoid to the periumbilical location. Dissection through the subcutaneous fat and fascia took place using electrocautery. The Bookwalter retractor was utilized. The stomach and duodenal sweep was free of significant induration/scarring. There was dark material within the bowel consistent with old blood. From our description from GI we knew that the ulcer was in the second portion of the duodenum. A longitudinal duodenotomy was made approximately 1-2 cm distal to the pylorus. Palpation revealed a site of clip placement. These clips were loose and withdrawn. The longitudinal incision on the bowel required lengthening so that we could visualize the ulcer itself better. The patient had atypical anatomy where there appeared to be a diverticulum involving the proximal second portion of the duodenum. It was at the base of this diverticulum that a visible vessel was identified with a small area of clot. This was consistent from the description given to us by GI. Thankfully this was not bleeding in a pulsatile manner at this time. Induration of the area was present. Palpation of the duodenum did not reveal any other suspicious areas. Ligation of the base of the ulcer took place using interrupted 3-0 GI silk sutures in an interrupted fashion. No bleeding was seen following that. The duodenotomy was then able to be closed transversely using an inner running embrocating 3-0 Vicryl suture. An outer layer using interrupted 3-0 GI silk Lambert suture was then used.the nasogastric tube was positioned so that it was in the proximal body of the stomach. The abdomen was irrigated. Tisseel fibrin glue was used along the length of the suture line. A drain was placed exiting from the right mid abdomen along the sub-hepatic space extending to the lesser curvature of the stomach. The fascia was then reapproximated using 2 separate double-stranded #1 PDS sutures. This skin was closed using thom. 3 separate openings were left for Telfa michael. Sterile outerdressings were applied. DISPOSITION: guarded to recovery room
--- NOTE | 2019-11-01 19:36 | P.ANPRN ---
Procedure Note - Anesthesia - Invasive Line Left Arterial Line Time Out Performed: Yes Date of Procedure: 11/01/19 Time of Procedure: 16:15 Location of Patient: PreOp Preparation: Sterile Prep, Sterile Dressing Arterial Line Location: Radial Ultrasound Used: No Purpose - Visualization and Identification of Vasculature: No Narrative: Arterial line placed for bp control, anticipated hemodynamic swings
[2019-11-01 19:47] LABS: Glucose,Whole Blood 176 mg/dL (75-99)
[2019-11-01 20:00] LABS: HCT 28.3 % (39.0-53.0); MCH 29.7 pg (25.0-35.0); MCHC 32.8 g/dL (31.0-37.0); MCV 90.7 fL (80.0-100.0); Mean Platelet Volume 7.7; Platelet Count 218 k/uL (150-450); RBC 3.12 m/uL (4.30-5.90); RDW 15.6 % (11.5-15.5)
[2019-11-01 20:08] LABS: ABG HCO3 21 mmol/L (21-25); ABG Oxygen Saturation 95.6 % (94-97); ABG PCO2 48 mmHg (35-45); ABG PH 7.24 (7.35-7.45); ABG PO2 82 mmHg (83-108); ABG TCO2 22 mmol/L (19-24); Allen Test Performed? Yes
[2019-11-01 20:12] LABS: Albumin 1.8 g/dL (3.5-5.0); Calcium 7.4 mg/dL (8.4-10.2); Potassium 5.5 mmol/L (3.5-5.1); Total Bilirubin 0.7 mg/dL (0.2-1.3); Total Protein 3.8 g/dL (6.3-8.2)
[2019-11-01 20:14] LABS: INR 1.2 (<1.2); Partial Thromboplastin Time 27.5 sec (22.0-30.0)
[2019-11-01 20:19] LABS: HGB 9.3 gm/dL (13.0-17.5)
[2019-11-01] MEDS ORDERED: SODIUM BICARB 8.4% 50 ML SYR (1 MEQ/ML) IV STA (21:03)
[2019-11-01] MEDS ORDERED: HYDROmorphone 0.5 MG/0.5 ML SYRINGE IVP SCH (21:15)
[2019-11-01 21:27] LABS: Glucose,Whole Blood 160 mg/dL (75-99)
[2019-11-01] MEDS: PIPERACILLIN-TAZOBACTAM 3.375 GM in SODIUM CHLORIDE 0.9% 100 ML IVPB SCH (21:44)
[2019-11-01] MEDS: metroNIDAZOLE-NS PMX 500 MG in SALINE 1 100ML.BAG IVPB SCH (21:44)
[2019-11-01] MEDS: FLUCONAZOLE IN NACL,ISO-OSM 100 MG in SALINE 1 50ML.BAG IVPB SCH (21:45)
[2019-11-01] MEDS: ATORVASTATIN 10 MG TAB PO SCH (21:45)
[2019-11-01] MEDS: CHLORHEXIDINE GLUCONATE 15 ML CUP MUCOUS MEM SCH (21:45)
[2019-11-01] MEDS: LACTATED RINGERS 2,000 ML IV SCH ×2 (21:47→22:03)
[2019-11-01] MEDS: PROPOFOL 1,000 MG in EMPTY BAG 1 BAG IV SCH (22:48)
--- NOTE | 2019-11-01 23:27 | XR ---
EXAMINATION TYPE: XR chest 1V portable DATE OF EXAM: 11/01/2019 COMPARISON: Today HISTORY: Respiratory failure TECHNIQUE: 2 views FINDINGS: There is endotracheal tube with the tip 4.5 cm from the lois. There is bilateral lower lo be patchy infiltrate and atelectasis. There is mild pulmonary congestion. There are chest leads. Ther e is right jugular catheter with the tip in the superior vena cava. There is nasogastric tube. The ti p is well into the stomach. IMPRESSION: Right pleural effusion with bilateral lower lobe pulmonary infiltrates and atelectasis un changed. Endotracheal tube in fairly good position.
[2019-11-02 00:15] LABS: Glucose,Whole Blood 179 mg/dL (75-99)
[2019-11-02] MEDS: metroNIDAZOLE-NS PMX 500 MG in SALINE 1 100ML.BAG IVPB SCH ×4 (00:15→23:17)
[2019-11-02] MEDS: INSULIN ASPART (NovoLOG) 100 UNIT/ML VIAL SQ SCH ×5 (00:19→23:42)
[2019-11-02] MEDS: methylPREDNISolone SOD SUCCI 40 MG/ML 1 ML VIAL IV SCH ×4 (00:19→23:17)
[2019-11-02] MEDS: LACTATED RINGERS 2,000 ML IV SCH (00:20)
[2019-11-02 01:52] LABS: Basophils % (A) 0 %; Eosinophils % (A) 0 %; HCT 25.9 % (39.0-53.0); HGB 8.7 gm/dL (13.0-17.5); Lymphocytes # (A) 0.9 k/uL (1.0-4.8); Lymphocytes % (A) 7 %; MCH 29.6 pg (25.0-35.0); MCHC 33.4 g/dL (31.0-37.0); MCV 88.8 fL (80.0-100.0); Mean Platelet Volume 7.8; Monocytes # (A) 0.6 k/uL (0-1.0); Monocytes % (A) 4 %; Neutrophils # (A) 11.1 k/uL (1.3-7.7); Neutrophils % (A) 87 %; Platelet Count 244 k/uL (150-450); RBC 2.92 m/uL (4.30-5.90); WBC 12.8 k/uL (3.8-10.6)
[2019-11-02 02:08] LABS: Calcium 7.5 mg/dL (8.4-10.2); Potassium 5.6 mmol/L (3.5-5.1)
[2019-11-02] MEDS: PIPERACILLIN-TAZOBACTAM 3.375 GM in SODIUM CHLORIDE 0.9% 100 ML IVPB SCH ×3 (04:55→20:02)
[2019-11-02 05:07] LABS: ABG Base Excess -3.3 mmol/L; ABG HCO3 22 mmol/L (21-25); ABG Oxygen Saturation 98.3 % (94-97); ABG PCO2 39 mmHg (35-45); ABG PH 7.36 (7.35-7.45); ABG PO2 109 mmHg (83-108); ABG TCO2 23 mmol/L (19-24); Allen Test Performed? Yes
[2019-11-02 06:11] LABS: Glucose,Whole Blood 189 mg/dL (75-99)
[2019-11-02] MEDS: LEVOTHYROXINE 125 MCG TAB PO SCH (06:44)
[2019-11-02 07:06] LABS: Anisocytosis Slight; Basophils % (A) 0 %; Eosinophils % (A) 0 %; HCT 25.6 % (39.0-53.0); HGB 8.8 gm/dL (13.0-17.5); Lymphocytes # (A) 0.9 k/uL (1.0-4.8); Lymphocytes % (A) 8 %; MCH 30.6 pg (25.0-35.0); MCHC 34.5 g/dL (31.0-37.0); MCV 88.8 fL (80.0-100.0); Mean Platelet Volume 8.3; Monocytes # (A) 0.2 k/uL (0-1.0); Monocytes % (A) 2 %; Neutrophils # (A) 9.7 k/uL (1.3-7.7); Neutrophils % (A) 90 %; Platelet Count 264 k/uL (150-450); Poikilocytosis Slight; RBC 2.89 m/uL (4.30-5.90); WBC 10.9 k/uL (3.8-10.6)
[2019-11-02] MEDS: PROPOFOL 1,000 MG in EMPTY BAG 1 BAG IV SCH ×6 (07:13→23:44)
[2019-11-02] MEDS: BUDESONIDE 1 MG/2 ML NEBU INHALATION SCH ×2 (07:51→19:43)
[2019-11-02] MEDS: IPRATROPIUM-ALBUTEROL 3 ML NEB INHALATION SCH ×4 (07:51→19:43)
[2019-11-02] MEDS: FORMOTEROL FUMARATE 20 MCG/2 ML NEBU INHALATION SCH ×2 (07:51→19:43)
[2019-11-02] MEDS: NICOTINE 14MG/24HR PATCH TRANSDERM SCH (08:08)
[2019-11-02] MEDS: PANTOPRAZOLE 40 MG/10 ML VIAL IV SCH ×2 (08:08→21:00)
[2019-11-02] MEDS: CHLORHEXIDINE GLUCONATE 15 ML CUP MUCOUS MEM SCH ×2 (08:08→21:00)
--- NOTE | 2019-11-02 08:13 | XR ---
EXAMINATION TYPE: XR chest 1V portable DATE OF EXAM: 11/02/2019 COMPARISON: NONE HISTORY: SOB, Follow Up FINDINGS: Indwelling tubes and catheters are unchanged. Persistent basilar opacities and effusions with improved aeration right lung base. Stable appearance of the cardio-mediastinal structures at this time. Pleural effusion unchanged. IMPRESSION: 1. Persistent basilar opacities and effusions with improved aeration right lung base.
--- NOTE | 2019-11-02 08:47 | CDI ---
Documentation Clarification Form Date: 11/02/2019 8:26:26 AM From: Nan Frazier RN, CCDS Admit Date: 10/28/2019 7:30:00 AM Patient Name: Bairon Obregon Visit Number: [id number] ATTENTION: The Clinical Documentation Specialists (CDI) and [facility] Coding Staff appreciate your assistance in clarifying documentation. Please respond to the clarification below the line at the bottom and electronically sign. The CDI & [facility] Coding staff will review the response and follow-up if needed. Please note: Queries are made part of the Legal Health Record. If you have any questions, please contact the author of this message via ITS. Dr. Chapin Hypotension/Hypotensive have been documented several times and requires further specificity. Patient history/risk factors: C/o Fatigue and dark stools, DM, HTN, ROSS, Hypothyroid Clinical Indicators: 10/28 EC Notes: "Given the patient's hypotension and anemia lactic acidosis I will plan to admit him to the ICU for close monitoring." 10/28 H&P: "Patient is presently on Protonix IV twice a day -Current artery disease continue with metoprolol hold off rest of the blood pressure medications and aspirin because of GI bleed -Hypertension patient is presently hypotensive secondary to GI bleed holding off on lisinopril, hydralazine." 11/01 Surgical Progress Note: patient he pulled his own nasogastric tube out. Unfortunately a few hours later the patient had a large bloody stool and was found to be hypotensive with diaphoresis. Blood was ordered. Upon my evaluation patient is in Trendelenburg. Remains diaphoretic. States he still feels like he is passing stool.1 unit of blood has been given already. He is on 4 mics of Levophed. Recent systolic blood pressure in the 80s." 11/01 1603 Vitals: Temp 99, HR 69, RR 12, B/P 73/28, 78/42, Spo2 100% on 7L high Flow Treatment: 8 units PRBC's transfused, 1 unit FFP transfused Levophed Gtt titrate for B/P 1L IVF Bolus followed by 100 cc/hr, currently decreased to 50 cc/hr Epi injection and endoclip placement to duodenum Exploratory lap with duodenotomy and oversewing of bleeding duodenal ulcer. In your professional opinion, can you please specify the clinical significance of the hypotension and treatment if known? Hypovolemic Shock Cause Other, please specify Unable to determine (Last Revision: August 2017) Hypovolemic Shock due to GI bleed MTDD
[2019-11-02] MEDS ORDERED: SODIUM CHLORIDE 0.9% 2,000 ML IV ONE (09:21)
--- NOTE | 2019-11-02 09:23 | P.PN ---
Subjective Progress Note Date: 11/02/19 On 11/02/2019 I'm seeing this patient in follow-up after the he came back from the operating room for GI bleeding. The patient has been hospital for upper GI bleed. The patient had a duodenal ulcer. He was bleeding actively and has required a total of 8 units of packed RBC and 1 unit of fresh frozen plasma and this was given to him preoperatively. Patient was taken to the operating room and he had expiratory laparotomy and he had oversewing of a duodenal ulcer. Postop the patient was extubated in the operating room. He was unable to breathe, and he desaturated and he had to be reintubated. This morning the patient continues to be intubated on a mechanical ventilator. Is on propofol which is running at 50 g per KG per minute. He remains on assist control mode of ventilation at the rate of 24 with an FiO2 of 75% and a PEEP of 5 and a tidal volume of 450. The blood gas showed a pH of 7.36 with a pCO2 of 39 and pO2 109. Chest x-ray showing bilateral pleural effusions most on the right in addition to atelectatic changes in the right lung base. He is intubated by #8 orotracheal tube. No further bouts of bleeding. BP is 105/33 through his Artline. He is receiving IV fluids at the rate of 200 disease an hour and is on levo fed at the rate of 0.03 g per KG per minute. Urine output is in order of 15-20 mL an hour over the past 2 hours. The patient has a right IJ triple-lumen catheter. Cardiac rhythm is sinus. No significant tachycardia. Abdominal wound is clear. There is a IVELISSE drain in his right lower quadrant area. His current hemoglobin is at 8.8. Objective - Vital Signs Vital signs: Vital Signs Temp 99.0 F 11/02/19 04:00 Pulse 60 11/02/19 08:13 Resp 24 11/02/19 07:00 BP 123/55 11/02/19 07:00 Pulse Ox 97 11/02/19 07:00 Intake & Output 11/01/19 11/02/19 11/02/19 18:59 06:59 18:59 Intake Total 6510 4624.499 447.160 Output Total 585 170 15 Balance 5925 4454.499 432.160 Weight 95.7 kg 97.1 kg Intake: IV 4150 4350 400 Ampicillin-Sulbactam 3 gm 100 100 In Sodium Chloride 0.9% 100 ml @ 200 mls/hr IVPB Q12HR [facility] Rx#:[id number] Fluconazole in NaCl,Iso- 50 Osm 100 mg In Saline 1 50ml.bag @ 50 mls/hr IVPB DAILY [facility] Rx#:[id number] LR 2000 400 Lactated Ringers 1,000 ml 2250 2000 @ 999 mls/hr IV .Q1H1M [facility] Rx#:[id number] Piperacillin-Tazobactam 3 100 .375 gm In Sodium Chloride 0.9% 100 ml @ 25 mls/hr IVPB Q8H [facility] Rx#: [id number] Sodium Chloride 0.9% 1, 500 000 ml @ 50 mls/hr IV . Q20H [facility] Rx#:[id number] metroNIDAZOLE-NS PMX 500 100 mg In Saline 1 100ml.bag @ 100 mls/hr IVPB Q8HR [facility] Rx#:[id number] Intake, IV Titration 274.499 47.160 Amount Norepinephrine 8 mg In 174.499 47.160 Sodium Chloride 0.9% 250 ml @ 0.05 MCG/KG/MIN 9. 259 mls/hr IV .Q24H [facility] Rx#:[id number] Propofol 1,000 mg In 100.000 Empty Bag 1 bag @ Titrate IV .Q0M [facility] Rx#: [id number] Blood Product 2360 Ffp 24 Cpda Unit 235 [id number] Rc As-1 Unit 310 [id number] Rc As-1 Unit 310 [id number] Rc As-1 Unit 310 [id number] Rc Pheresis 2 As3 Unit 310 [id number] Output: Urine 535 170 15 Estimated Blood Loss 50 Other: Voiding Method Indwelling Catheter Indwelling Catheter ABP, PAP, CO, CI - Last Documented Arterial Blood Pressure 139/43 - Exam Gen. appearance, comfortable sedated and intubated on a mechanical ventilator has an orotracheal an NG tube in place. Head exam was generally normal. There was no scleral icterus or corneal arcus. Mucous membranes were moist. Neck was supple and without jugular venous distension, thyromegaly, or carotid bruits. Carotids were easily palpable bilaterally. There was no adenopathy. Lungs were clear to auscultation and percussion, and with normal diaphragmatic excursion. No wheezes or rales were noted. Breath sounds are diminished in lung bases bilaterally. Cardiac exam revealed the PMI to be normally situated and sized. The rhythm was regular and no extrasystoles were noted during several minutes of auscultation. The first and second heart sounds were normal and physiologic splitting of the second heart sound was noted. There were no murmurs, rubs, clicks, or gallops. Abdomen is soft and the patient has a mid abdominal incision with a IVELISSE drain in the right lower quadrant. Bowel sounds are hypoactive. Neck tenderness. No rebound tenderness. No guarding. Examination of the extremities revealed easily palpable radial, femoral and pedal pulses. There was no cyanosis, clubbing or edema. Examination of the skin revealed no evidence of significant rashes, suspicious appearing nevi or other concerning lesions. Neurologically sedated, comfortable - Labs CBC & Chem 7: 11/02/19 06:55 11/02/19 01:15 Labs: Abnormal Lab Results - Last 24 Hours (Table) 11/01/19 11/01/19 11/01/19 Range/Units 11:16 13:35 13:35 WBC (3.8-10.6) k/uL RBC (4.30-5.90) m/uL Hgb (13.0-17.5) gm/dL Hct (39.0-53.0) % MCHC (31.0-37.0) g/dL RDW (11.5-15.5) % Neutrophils # (1.3-7.7) k/uL Lymphocytes # (1.0-4.8) k/uL INR (<1.2) ABG pH (7.35-7.45) ABG pCO2 (35-45) mmHg ABG pO2 (83-108) mmHg ABG O2 Saturation (94-97) % Potassium (3.5-5.1) mmol/L Chloride 114 H (98-107) mmol/L Carbon Dioxide (22-30) mmol/L BUN 45 H (9-20) mg/dL Creatinine 2.79 H (0.66-1.25) mg/dL Glucose 100 H (74-99) mg/dL POC Glucose (mg/dL) 128 H (75-99) mg/dL Calcium 8.1 L (8.4-10.2) mg/dL AST 15 L (17-59) U/L Total Protein 4.4 L (6.3-8.2) g/dL Albumin 2.1 L (3.5-5.0) g/dL Crossmatch See Detail 11/01/19 11/01/19 11/01/19 Range/Units 13:35 13:39 19:32 WBC (3.8-10.6) k/uL RBC 2.20 L 3.12 L (4.30-5.90) m/uL Hgb 6.0 L* 9.3 L D (13.0-17.5) gm/dL Hct 19.6 L* 28.3 L (39.0-53.0) % MCHC 30.6 L (31.0-37.0) g/dL RDW 17.4 H 15.6 H (11.5-15.5) % Neutrophils # (1.3-7.7) k/uL Lymphocytes # (1.0-4.8) k/uL INR (<1.2) ABG pH (7.35-7.45) ABG pCO2 (35-45) mmHg ABG pO2 (83-108) mmHg ABG O2 Saturation (94-97) % Potassium (3.5-5.1) mmol/L Chloride (98-107) mmol/L Carbon Dioxide (22-30) mmol/L BUN (9-20) mg/dL Creatinine (0.66-1.25) mg/dL Glucose (74-99) mg/dL POC Glucose (mg/dL) 105 H (75-99) mg/dL Calcium (8.4-10.2) mg/dL AST (17-59) U/L Total Protein (6.3-8.2) g/dL Albumin (3.5-5.0) g/dL Crossmatch 11/01/19 11/01/19 11/01/19 Range/Units 19:32 19:32 19:35 WBC (3.8-10.6) k/uL RBC (4.30-5.90) m/uL Hgb (13.0-17.5) gm/dL Hct (39.0-53.0) % MCHC (31.0-37.0) g/dL RDW (11.5-15.5) % Neutrophils # (1.3-7.7) k/uL Lymphocytes # (1.0-4.8) k/uL INR 1.2 H (<1.2) ABG pH (7.35-7.45) ABG pCO2 (35-45) mmHg ABG pO2 (83-108) mmHg ABG O2 Saturation (94-97) % Potassium 5.5 H (3.5-5.1) mmol/L Chloride 117 H (98-107) mmol/L Carbon Dioxide 21 L (22-30) mmol/L BUN 45 H (9-20) mg/dL Creatinine 2.70 H (0.66-1.25) mg/dL Glucose 155 H (74-99) mg/dL POC Glucose (mg/dL) 176 H (75-99) mg/dL Calcium 7.4 L (8.4-10.2) mg/dL AST (17-59) U/L Total Protein 3.8 L (6.3-8.2) g/dL Albumin 1.8 L (3.5-5.0) g/dL Crossmatch 11/01/19 11/01/19 11/02/19 Range/Units 20:01 21:16 00:04 WBC (3.8-10.6) k/uL RBC (4.30-5.90) m/uL Hgb (13.0-17.5) gm/dL Hct (39.0-53.0) % MCHC (31.0-37.0) g/dL RDW (11.5-15.5) % Neutrophils # (1.3-7.7) k/uL Lymphocytes # (1.0-4.8) k/uL INR (<1.2) ABG pH 7.24 L (7.35-7.45) ABG pCO2 48 H (35-45) mmHg ABG pO2 82 L (83-108) mmHg ABG O2 Saturation (94-97) % Potassium (3.5-5.1) mmol/L Chloride (98-107) mmol/L Carbon Dioxide (22-30) mmol/L BUN (9-20) mg/dL Creatinine (0.66-1.25) mg/dL Glucose (74-99) mg/dL POC Glucose (mg/dL) 160 H 179 H (75-99) mg/dL Calcium (8.4-10.2) mg/dL AST (17-59) U/L Total Protein (6.3-8.2) g/dL Albumin (3.5-5.0) g/dL Crossmatch 11/02/19 11/02/19 11/02/19 Range/Units 01:15 01:15 05:04 WBC 12.8 H (3.8-10.6) k/uL RBC 2.92 L (4.30-5.90) m/uL Hgb 8.7 L (13.0-17.5) gm/dL Hct 25.9 L (39.0-53.0) % MCHC (31.0-37.0) g/dL RDW 16.0 H (11.5-15.5) % Neutrophils # 11.1 H (1.3-7.7) k/uL Lymphocytes # 0.9 L (1.0-4.8) k/uL INR (<1.2) ABG pH (7.35-7.45) ABG pCO2 (35-45) mmHg ABG pO2 109 H (83-108) mmHg ABG O2 Saturation 98.3 H (94-97) % Potassium 5.6 H (3.5-5.1) mmol/L Chloride 115 H (98-107) mmol/L Carbon Dioxide (22-30) mmol/L BUN 45 H (9-20) mg/dL Creatinine 2.73 H (0.66-1.25) mg/dL Glucose 157 H (74-99) mg/dL POC Glucose (mg/dL) (75-99) mg/dL Calcium 7.5 L (8.4-10.2) mg/dL AST (17-59) U/L Total Protein (6.3-8.2) g/dL Albumin (3.5-5.0) g/dL Crossmatch 11/02/19 11/02/19 Range/Units 06:00 06:55 WBC 10.9 H (3.8-10.6) k/uL RBC 2.89 L (4.30-5.90) m/uL Hgb 8.8 L (13.0-17.5) gm/dL Hct 25.6 L (39.0-53.0) % MCHC (31.0-37.0) g/dL RDW 16.0 H (11.5-15.5) % Neutrophils # 9.7 H (1.3-7.7) k/uL Lymphocytes # 0.9 L (1.0-4.8) k/uL INR (<1.2) ABG pH (7.35-7.45) ABG pCO2 (35-45) mmHg ABG pO2 (83-108) mmHg ABG O2 Saturation (94-97) % Potassium (3.5-5.1) mmol/L Chloride (98-107) mmol/L Carbon Dioxide (22-30) mmol/L BUN (9-20) mg/dL Creatinine (0.66-1.25) mg/dL Glucose (74-99) mg/dL POC Glucose (mg/dL) 189 H (75-99) mg/dL Calcium (8.4-10.2) mg/dL AST (17-59) U/L Total Protein (6.3-8.2) g/dL Albumin (3.5-5.0) g/dL Crossmatch Assessment and Plan Plan: 1 acute upper GI bleed secondary to duodenal ulcer. The patient underwent exploratory laparotomy and oversewing of duodenal ulcer on today's postop day #1 2 blood loss anemia secondary to GI bleed, current hemoglobin stable at 8.8 3 acute hypoxic respiratory failure with development of bilateral pleural effusion and atelectatic changes in lung bases, currently intubated on a mechanical ventilator. 4 chronic kidney disease with 5 obstructive sleep apnea maintained on CPAP on outpatient basis 6 hyperlipidemia 7 hypothyroidism 8 hypertension history of 9 diabetes mellitus 10 osteoarthritis Plan Give the patient additional 2 L of IV fluids. Monitor CVP Get an echocardiogram Continue weaning down the FiO2 to maintain a saturation above 90%. Keep the PEEP of 8 IV Protonix IV propofol Wean off pressors and discontinue levo fed if possible to maintain a mean arterial pressure above 60 Continue IV Zosyn and Flagyl as empiric antibiotic coverage IV levo thyroxine 75 g SCD to lower extremities for DT prophylaxis No weaning trials for today. He may get a sedation holiday General surgeries on the case. We'll continue to follow and make further recommendations based on his progress. Critically care evaluation, 35 minutes. Time with Patient: Greater than 30
[2019-11-02] MEDS: AMPICILLIN-SULBACTAM 3 GM in SODIUM CHLORIDE 0.9% 100 ML IVPB SCH ×2 (09:39→21:00)
[2019-11-02] MEDS: FLUCONAZOLE IN NACL,ISO-OSM 100 MG in SALINE 1 50ML.BAG IVPB SCH (10:26)
--- NOTE | 2019-11-02 11:24 | P.PN ---
<GuilhermeAndie Bridgette - Last Filed: 11/02/19 11:18> Subjective Progress Note Date: 11/02/19 CHIEF COMPLAINT: Bleeding duodenal ulcer HISTORY OF PRESENT ILLNESS: 78-year-old male who is status post exploratory laparotomy with duodenotomy and oversewing of bleeding duodenal ulcer. Postop day #1. Patient remains interested in the intensive care unit. FiO2 has been decreased to 70%. He remains on continuous sedation. IVELISSE drain with minimal serosanguineous output. WBC 10.9. Hemoglobin remains stable at 8.8. PHYSICAL EXAM: VITAL SIGNS: Reviewed. GENERAL: Well-developed in no acute distress-on continuous sedation. HEENT: No sclera icterus. Extraocular movements grossly intact. Moist buccal mucosa. Head is atraumatic, normocephalic. ABDOMEN: Soft. Nondistended. Surgical dressing clean dry intact. NG to LIS. IVELISSE drain with small amount of serosanguineous drainage NEUROLOGIC: sedated on mechanical ventilation ASSESSMENT: 1. Bleeding duodenal ulcer, status post exploratory laparotomy with duodenotomy and oversewing of bleeding duodenal ulcer 2. Acute blood loss anemia PLAN: 1. Continue ICU/ventilator management per Dr. Pederson 2. CMP ordered this morning. Await results 3. Continue to monitor hemoglobin 4. No tube feedings or TPN to be initiated at this time. Nurse practitioner note has been reviewed by physician. Signing provider agrees with the documented findings, assessment, and plan of care. Objective - Vital Signs Vital signs: Vital Signs Temp 99.0 F 11/02/19 04:00 Pulse 60 11/02/19 08:13 Resp 24 11/02/19 07:00 BP 123/55 11/02/19 07:00 Pulse Ox 97 11/02/19 07:00 Intake & Output 11/01/19 11/02/19 11/02/19 18:59 06:59 18:59 Intake Total 6510 4624.499 563.580 Output Total 585 170 15 Balance 5925 4454.499 548.580 Weight 95.7 kg 97.1 kg Intake: IV 4150 4350 400 Ampicillin-Sulbactam 3 gm 100 100 In Sodium Chloride 0.9% 100 ml @ 200 mls/hr IVPB Q12HR [facility] Rx#:[id number] Fluconazole in NaCl,Iso- 50 Osm 100 mg In Saline 1 50ml.bag @ 50 mls/hr IVPB DAILY [facility] Rx#:[id number] LR 2000 400 Lactated Ringers 1,000 ml 2250 2000 @ 999 mls/hr IV .Q1H1M [facility] Rx#:[id number] Piperacillin-Tazobactam 3 100 .375 gm In Sodium Chloride 0.9% 100 ml @ 25 mls/hr IVPB Q8H [facility] Rx#: [id number] Sodium Chloride 0.9% 1, 500 000 ml @ 50 mls/hr IV . Q20H [facility] Rx#:[id number] metroNIDAZOLE-NS PMX 500 100 mg In Saline 1 100ml.bag @ 100 mls/hr IVPB Q8HR [facility] Rx#:[id number] Intake, IV Titration 274.499 163.580 Amount Norepinephrine 8 mg In 174.499 56.666 Sodium Chloride 0.9% 250 ml @ 0.05 MCG/KG/MIN 9. 259 mls/hr IV .Q24H [facility] Rx#:[id number] Propofol 1,000 mg In 100.000 106.914 Empty Bag 1 bag @ Titrate IV .Q0M [facility] Rx#: [id number] Blood Product 2360 Ffp 24 Cpda Unit 235 [id number] Rc As-1 Unit 310 [id number] Rc As-1 Unit 310 [id number] Rc As-1 Unit 310 [id number] Rc Pheresis 2 As3 Unit 310 [id number] Output: Urine 535 170 15 Estimated Blood Loss 50 Other: Voiding Method Indwelling Catheter Indwelling Catheter ABP, PAP, CO, CI - Last Documented Arterial Blood Pressure 139/43 - Labs CBC & Chem 7: 11/02/19 06:55 11/02/19 01:15 Labs: Abnormal Lab Results - Last 24 Hours (Table) 11/01/19 11/01/19 11/01/19 Range/Units 11:16 13:35 13:35 WBC (3.8-10.6) k/uL RBC (4.30-5.90) m/uL Hgb (13.0-17.5) gm/dL Hct (39.0-53.0) % MCHC (31.0-37.0) g/dL RDW (11.5-15.5) % Neutrophils # (1.3-7.7) k/uL Lymphocytes # (1.0-4.8) k/uL INR (<1.2) ABG pH (7.35-7.45) ABG pCO2 (35-45) mmHg ABG pO2 (83-108) mmHg ABG O2 Saturation (94-97) % Potassium (3.5-5.1) mmol/L Chloride 114 H (98-107) mmol/L Carbon Dioxide (22-30) mmol/L BUN 45 H (9-20) mg/dL Creatinine 2.79 H (0.66-1.25) mg/dL Glucose 100 H (74-99) mg/dL POC Glucose (mg/dL) 128 H (75-99) mg/dL Calcium 8.1 L (8.4-10.2) mg/dL AST 15 L (17-59) U/L Total Protein 4.4 L (6.3-8.2) g/dL Albumin 2.1 L (3.5-5.0) g/dL Crossmatch See Detail 11/01/19 11/01/19 11/01/19 Range/Units 13:35 13:39 19:32 WBC (3.8-10.6) k/uL RBC 2.20 L 3.12 L (4.30-5.90) m/uL Hgb 6.0 L* 9.3 L D (13.0-17.5) gm/dL Hct 19.6 L* 28.3 L (39.0-53.0) % MCHC 30.6 L (31.0-37.0) g/dL RDW 17.4 H 15.6 H (11.5-15.5) % Neutrophils # (1.3-7.7) k/uL Lymphocytes # (1.0-4.8) k/uL INR (<1.2) ABG pH (7.35-7.45) ABG pCO2 (35-45) mmHg ABG pO2 (83-108) mmHg ABG O2 Saturation (94-97) % Potassium (3.5-5.1) mmol/L Chloride (98-107) mmol/L Carbon Dioxide (22-30) mmol/L BUN (9-20) mg/dL Creatinine (0.66-1.25) mg/dL Glucose (74-99) mg/dL POC Glucose (mg/dL) 105 H (75-99) mg/dL Calcium (8.4-10.2) mg/dL AST (17-59) U/L Total Protein (6.3-8.2) g/dL Albumin (3.5-5.0) g/dL Crossmatch 11/01/19 11/01/19 11/01/19 Range/Units 19:32 19:32 19:35 WBC (3.8-10.6) k/uL RBC (4.30-5.90) m/uL Hgb (13.0-17.5) gm/dL Hct (39.0-53.0) % MCHC (31.0-37.0) g/dL RDW (11.5-15.5) % Neutrophils # (1.3-7.7) k/uL Lymphocytes # (1.0-4.8) k/uL INR 1.2 H (<1.2) ABG pH (7.35-7.45) ABG pCO2 (35-45) mmHg ABG pO2 (83-108) mmHg ABG O2 Saturation (94-97) % Potassium 5.5 H (3.5-5.1) mmol/L Chloride 117 H (98-107) mmol/L Carbon Dioxide 21 L (22-30) mmol/L BUN 45 H (9-20) mg/dL Creatinine 2.70 H (0.66-1.25) mg/dL Glucose 155 H (74-99) mg/dL POC Glucose (mg/dL) 176 H (75-99) mg/dL Calcium 7.4 L (8.4-10.2) mg/dL AST (17-59) U/L Total Protein 3.8 L (6.3-8.2) g/dL Albumin 1.8 L (3.5-5.0) g/dL Crossmatch 11/01/19 11/01/19 11/02/19 Range/Units 20:01 21:16 00:04 WBC (3.8-10.6) k/uL RBC (4.30-5.90) m/uL Hgb (13.0-17.5) gm/dL Hct (39.0-53.0) % MCHC (31.0-37.0) g/dL RDW (11.5-15.5) % Neutrophils # (1.3-7.7) k/uL Lymphocytes # (1.0-4.8) k/uL INR (<1.2) ABG pH 7.24 L (7.35-7.45) ABG pCO2 48 H (35-45) mmHg ABG pO2 82 L (83-108) mmHg ABG O2 Saturation (94-97) % Potassium (3.5-5.1) mmol/L Chloride (98-107) mmol/L Carbon Dioxide (22-30) mmol/L BUN (9-20) mg/dL Creatinine (0.66-1.25) mg/dL Glucose (74-99) mg/dL POC Glucose (mg/dL) 160 H 179 H (75-99) mg/dL Calcium (8.4-10.2) mg/dL AST (17-59) U/L Total Protein (6.3-8.2) g/dL Albumin (3.5-5.0) g/dL Crossmatch 11/02/19 11/02/19 11/02/19 Range/Units 01:15 01:15 05:04 WBC 12.8 H (3.8-10.6) k/uL RBC 2.92 L (4.30-5.90) m/uL Hgb 8.7 L (13.0-17.5) gm/dL Hct 25.9 L (39.0-53.0) % MCHC (31.0-37.0) g/dL RDW 16.0 H (11.5-15.5) % Neutrophils # 11.1 H (1.3-7.7) k/uL Lymphocytes # 0.9 L (1.0-4.8) k/uL INR (<1.2) ABG pH (7.35-7.45) ABG pCO2 (35-45) mmHg ABG pO2 109 H (83-108) mmHg ABG O2 Saturation 98.3 H (94-97) % Potassium 5.6 H (3.5-5.1) mmol/L Chloride 115 H (98-107) mmol/L Carbon Dioxide (22-30) mmol/L BUN 45 H (9-20) mg/dL Creatinine 2.73 H (0.66-1.25) mg/dL Glucose 157 H (74-99) mg/dL POC Glucose (mg/dL) (75-99) mg/dL Calcium 7.5 L (8.4-10.2) mg/dL AST (17-59) U/L Total Protein (6.3-8.2) g/dL Albumin (3.5-5.0) g/dL Crossmatch 11/02/19 11/02/19 Range/Units 06:00 06:55 WBC 10.9 H (3.8-10.6) k/uL RBC 2.89 L (4.30-5.90) m/uL Hgb 8.8 L (13.0-17.5) gm/dL Hct 25.6 L (39.0-53.0) % MCHC (31.0-37.0) g/dL RDW 16.0 H (11.5-15.5) % Neutrophils # 9.7 H (1.3-7.7) k/uL Lymphocytes # 0.9 L (1.0-4.8) k/uL INR (<1.2) ABG pH (7.35-7.45) ABG pCO2 (35-45) mmHg ABG pO2 (83-108) mmHg ABG O2 Saturation (94-97) % Potassium (3.5-5.1) mmol/L Chloride (98-107) mmol/L Carbon Dioxide (22-30) mmol/L BUN (9-20) mg/dL Creatinine (0.66-1.25) mg/dL Glucose (74-99) mg/dL POC Glucose (mg/dL) 189 H (75-99) mg/dL Calcium (8.4-10.2) mg/dL AST (17-59) U/L Total Protein (6.3-8.2) g/dL Albumin (3.5-5.0) g/dL Crossmatch <Jose Gifford - Last Filed: 11/02/19 12:44> Subjective as above. Patient doing well on the ventilator at this time. FiO2 requirements decreasing. Remains sedated. Drain is serosanguineous. Hemoglobin is stable. nasogastric tube without blood. Continue weaning from ventilator. Continue antibiotics. Hold dressing changed today. Objective - Vital Signs Vital signs: Vital Signs Temp 99.7 F H 11/02/19 08:00 Pulse 56 L 11/02/19 12:12 Resp 24 11/02/19 11:00 BP 127/53 11/02/19 11:00 Pulse Ox 98 11/02/19 11:00 Intake & Output 11/01/19 11/02/19 11/02/19 18:59 06:59 18:59 Intake Total 6510 4624.499 563.580 Output Total 585 170 15 Balance 5925 4454.499 548.580 Weight 95.7 kg 97.1 kg Intake: IV 4150 4350 400 Ampicillin-Sulbactam 3 gm 100 100 In Sodium Chloride 0.9% 100 ml @ 200 mls/hr IVPB Q12HR [facility] Rx#:[id number] Fluconazole in NaCl,Iso- 50 Osm 100 mg In Saline 1 50ml.bag @ 50 mls/hr IVPB DAILY [facility] Rx#:[id number] LR 2000 400 Lactated Ringers 1,000 ml 2250 2000 @ 999 mls/hr IV .Q1H1M [facility] Rx#:[id number] Piperacillin-Tazobactam 3 100 .375 gm In Sodium Chloride 0.9% 100 ml @ 25 mls/hr IVPB Q8H [facility] Rx#: [id number] Sodium Chloride 0.9% 1, 500 000 ml @ 50 mls/hr IV . Q20H [facility] Rx#:[id number] metroNIDAZOLE-NS PMX 500 100 mg In Saline 1 100ml.bag @ 100 mls/hr IVPB Q8HR [facility] Rx#:[id number] Intake, IV Titration 274.499 163.580 Amount Norepinephrine 8 mg In 174.499 56.666 Sodium Chloride 0.9% 250 ml @ 0.05 MCG/KG/MIN 9. 259 mls/hr IV .Q24H [facility] Rx#:[id number] Propofol 1,000 mg In 100.000 106.914 Empty Bag 1 bag @ Titrate IV .Q0M [facility] Rx#: [id number] Blood Product 2360 Ffp 24 Cpda Unit 235 [id number] Rc As-1 Unit 310 [id number] Rc As-1 Unit 310 [id number] Rc As-1 Unit 310 [id number] Rc Pheresis 2 As3 Unit 310 [id number] Output: Urine 535 170 15 Estimated Blood Loss 50 Other: Voiding Method Indwelling Catheter Indwelling Catheter Indwelling Catheter ABP, PAP, CO, CI - Last Documented Arterial Blood Pressure 143/40 - Labs CBC & Chem 7: 11/02/19 06:55 11/02/19 07:00 Labs: Abnormal Lab Results - Last 24 Hours (Table) 11/01/19 11/01/19 11/01/19 Range/Units 13:35 13:35 13:35 WBC (3.8-10.6) k/uL RBC 2.20 L (4.30-5.90) m/uL Hgb 6.0 L* (13.0-17.5) gm/dL Hct 19.6 L* (39.0-53.0) % MCHC 30.6 L (31.0-37.0) g/dL RDW 17.4 H (11.5-15.5) % Neutrophils # (1.3-7.7) k/uL Lymphocytes # (1.0-4.8) k/uL INR (<1.2) ABG pH (7.35-7.45) ABG pCO2 (35-45) mmHg ABG pO2 (83-108) mmHg ABG O2 Saturation (94-97) % Potassium (3.5-5.1) mmol/L Chloride 114 H (98-107) mmol/L Carbon Dioxide (22-30) mmol/L BUN 45 H (9-20) mg/dL Creatinine 2.79 H (0.66-1.25) mg/dL Glucose 100 H (74-99) mg/dL POC Glucose (mg/dL) (75-99) mg/dL Calcium 8.1 L (8.4-10.2) mg/dL AST 15 L (17-59) U/L ALT (4-49) U/L Total Protein 4.4 L (6.3-8.2) g/dL Albumin 2.1 L (3.5-5.0) g/dL Crossmatch See Detail 11/01/19 11/01/19 11/01/19 Range/Units 13:39 19:32 19:32 WBC (3.8-10.6) k/uL RBC 3.12 L (4.30-5.90) m/uL Hgb 9.3 L D (13.0-17.5) gm/dL Hct 28.3 L (39.0-53.0) % MCHC (31.0-37.0) g/dL RDW 15.6 H (11.5-15.5) % Neutrophils # (1.3-7.7) k/uL Lymphocytes # (1.0-4.8) k/uL INR (<1.2) ABG pH (7.35-7.45) ABG pCO2 (35-45) mmHg ABG pO2 (83-108) mmHg ABG O2 Saturation (94-97) % Potassium 5.5 H (3.5-5.1) mmol/L Chloride 117 H (98-107) mmol/L Carbon Dioxide 21 L (22-30) mmol/L BUN 45 H (9-20) mg/dL Creatinine 2.70 H (0.66-1.25) mg/dL Glucose 155 H (74-99) mg/dL POC Glucose (mg/dL) 105 H (75-99) mg/dL Calcium 7.4 L (8.4-10.2) mg/dL AST (17-59) U/L ALT (4-49) U/L Total Protein 3.8 L (6.3-8.2) g/dL Albumin 1.8 L (3.5-5.0) g/dL Crossmatch 11/01/19 11/01/19 11/01/19 Range/Units 19:32 19:35 20:01 WBC (3.8-10.6) k/uL RBC (4.30-5.90) m/uL Hgb (13.0-17.5) gm/dL Hct (39.0-53.0) % MCHC (31.0-37.0) g/dL RDW (11.5-15.5) % Neutrophils # (1.3-7.7) k/uL Lymphocytes # (1.0-4.8) k/uL INR 1.2 H (<1.2) ABG pH 7.24 L (7.35-7.45) ABG pCO2 48 H (35-45) mmHg ABG pO2 82 L (83-108) mmHg ABG O2 Saturation (94-97) % Potassium (3.5-5.1) mmol/L Chloride (98-107) mmol/L Carbon Dioxide (22-30) mmol/L BUN (9-20) mg/dL Creatinine (0.66-1.25) mg/dL Glucose (74-99) mg/dL POC Glucose (mg/dL) 176 H (75-99) mg/dL Calcium (8.4-10.2) mg/dL AST (17-59) U/L ALT (4-49) U/L Total Protein (6.3-8.2) g/dL Albumin (3.5-5.0) g/dL Crossmatch 11/01/19 11/02/19 11/02/19 Range/Units 21:16 00:04 01:15 WBC (3.8-10.6) k/uL RBC (4.30-5.90) m/uL Hgb (13.0-17.5) gm/dL Hct (39.0-53.0) % MCHC (31.0-37.0) g/dL RDW (11.5-15.5) % Neutrophils # (1.3-7.7) k/uL Lymphocytes # (1.0-4.8) k/uL INR (<1.2) ABG pH (7.35-7.45) ABG pCO2 (35-45) mmHg ABG pO2 (83-108) mmHg ABG O2 Saturation (94-97) % Potassium 5.6 H (3.5-5.1) mmol/L Chloride 115 H (98-107) mmol/L Carbon Dioxide (22-30) mmol/L BUN 45 H (9-20) mg/dL Creatinine 2.73 H (0.66-1.25) mg/dL Glucose 157 H (74-99) mg/dL POC Glucose (mg/dL) 160 H 179 H (75-99) mg/dL Calcium 7.5 L (8.4-10.2) mg/dL AST (17-59) U/L ALT (4-49) U/L Total Protein (6.3-8.2) g/dL Albumin (3.5-5.0) g/dL Crossmatch 11/02/19 11/02/1911/02/19 Range/Units 01:15 05:04 06:00 WBC 12.8 H (3.8-10.6) k/uL RBC 2.92 L (4.30-5.90) m/uL Hgb 8.7 L (13.0-17.5) gm/dL Hct 25.9 L (39.0-53.0) % MCHC (31.0-37.0) g/dL RDW 16.0 H (11.5-15.5) % Neutrophils # 11.1 H (1.3-7.7) k/uL Lymphocytes # 0.9 L (1.0-4.8) k/uL INR (<1.2) ABG pH (7.35-7.45) ABG pCO2 (35-45) mmHg ABG pO2 109 H (83-108) mmHg ABG O2 Saturation 98.3 H (94-97) % Potassium (3.5-5.1) mmol/L Chloride (98-107) mmol/L Carbon Dioxide (22-30) mmol/L BUN (9-20) mg/dL Creatinine (0.66-1.25) mg/dL Glucose (74-99) mg/dL POC Glucose (mg/dL) 189 H (75-99) mg/dL Calcium (8.4-10.2) mg/dL AST (17-59) U/L ALT (4-49) U/L Total Protein (6.3-8.2) g/dL Albumin (3.5-5.0) g/dL Crossmatch 11/02/19 11/02/19 11/02/19 Range/Units 06:55 07:00 11:54 WBC 10.9 H (3.8-10.6) k/uL RBC 2.89 L (4.30-5.90) m/uL Hgb 8.8 L (13.0-17.5) gm/dL Hct 25.6 L (39.0-53.0) % MCHC (31.0-37.0) g/dL RDW 16.0 H (11.5-15.5) % Neutrophils # 9.7 H (1.3-7.7) k/uL Lymphocytes # 0.9 L (1.0-4.8) k/uL INR (<1.2) ABG pH (7.35-7.45) ABG pCO2 (35-45) mmHg ABG pO2 (83-108) mmHg ABG O2 Saturation (94-97) % Potassium 5.7 H (3.5-5.1) mmol/L Chloride 115 H (98-107) mmol/L Carbon Dioxide 21 L (22-30) mmol/L BUN 46 H (9-20) mg/dL Creatinine 2.89 H (0.66-1.25) mg/dL Glucose 156 H (74-99) mg/dL POC Glucose (mg/dL) 149 H (75-99) mg/dL Calcium 7.6 L (8.4-10.2) mg/dL AST 62 H (17-59) U/L ALT 50 H (4-49) U/L Total Protein 4.1 L (6.3-8.2) g/dL Albumin 2.0 L (3.5-5.0) g/dL Crossmatch Microbiology - Last 24 Hours (Table) 11/02/19 01:15 Sputum Culture - Preliminary Sputum Assessment and Plan (1) Bleeding duodenal ulcer Current Visit: Yes Status: Acute Code(s): K26.4 - CHRONIC OR UNSPECIFIED DUODENAL ULCER WITH HEMORRHAGE SNOMED Code(s): 27850071
[2019-11-02 11:55] LABS: Calcium 7.6 mg/dL (8.4-10.2); Potassium 5.7 mmol/L (3.5-5.1); Total Bilirubin 0.5 mg/dL (0.2-1.3); Total Protein 4.1 g/dL (6.3-8.2)
[2019-11-02 12:06] LABS: Glucose,Whole Blood 149 mg/dL (75-99)
[2019-11-02] MEDS: LINAGLIPTIN 5 MG TABLET PO SCH (12:19)
[2019-11-02] MEDS: LIDOCAINE 5% PATCH TOPICAL SCH (12:19)
[2019-11-02] MEDS: LIOTHYRONINE SODIUM 5 MCG TAB PO SCH (12:20)
[2019-11-02] MEDS: METOPROLOL TARTRATE 50 MG TAB PO SCH ×2 (12:20→20:56)
[2019-11-02] MEDS: PREGABALIN 50 MG CAP PO SCH ×2 (12:20→20:57)
--- NOTE | 2019-11-02 17:55 | PN ---
PROGRESS NOTE DATE OF SERVICE: November 02, 2019 Patient is a 78-year-old pleasant white male who was admitted to hospital with acute GI bleed. He had 2 upper endoscopies done with diagnosis of bleeding duodenal ulcer. The second upper endoscopy was done 2 days ago with injection of epinephrine and Endoclip placement. Yesterday afternoon, the patient started having significant amount of bleeding requiring fluid resuscitation as well as PRBC transfusion. He underwent surgery by Dr. Gifford with exploratory laparotomy with duodenotomy and over-sewing of the bleeding ulcer. The patient remains on the vent and stable. He remains sedated. PHYSICAL EXAMINATION: Vital signs show blood pressure of 107/33 with a pulse rate of 59 and a temperature 98.9. HEENT examination unremarkable. Conjunctivae pale. Sclerae anicteric. Oral cavity no lesions. Neck: No JVD or lymph node enlargement. Chest: Clear to auscultation. HEART: Regular rate and rhythm. ABDOMEN: Soft. Bowel sounds are positive. No organomegaly. EXTREMITIES: No pedal edema. SKIN no rashes. NEUROLOGIC: Sedated, on the vent. LABS: From today WBC 10.9, hemoglobin 8.8, and platelets normal. The patient received 8 units of PRB transfusion since hospitalization. BUN is 46, creatinine 2.89. IMPRESSION: Acute duodenal ulcer, bleeding, status post exploratory laparotomy with over-sewing of the duodenal ulcer. The patient remains on the vent and stable. Hemoglobin stable at 8.8 g/dL. He received a total of 8 units of PRBC transfusion since the patient has been hospitalized 5 days ago. RECOMMENDATIONS: 1. Continue with IV Protonix 40 mg q.12 hours. 2. Monitor CBC on a daily basis. 3. Will check H-pylori serologies. 4. We will sign off at this time. 5. Please call us if needed. Thank you for this consultation. MMODL / IJN: [id number] /
[2019-11-02 18:19] LABS: Glucose,Whole Blood 133 mg/dL (75-99)
--- NOTE | 2019-11-02 19:12 | ECHOF ---
Referral Reason:hypotension MEASUREMENTS -------- HEIGHT: 180.3 cm WEIGHT: 97.1 kg BP: 125/54 RVIDd: 3.4 cm (< 3.3) IVSd: 1.5 cm (0.6 - 1.1) LVIDd: 3.7 cm (3.9 - 5.3) LVPWd: 1.4 cm (0.6 - 1.1) IVSs: 1.8 cm LVIDs: 2.7 cm LVPWs: 1.5 cm LA Diam: 3.0 cm (2.7 - 3.8) Ao Diam: 2.8 cm (2.0 - 3.7) AV Cusp: 1.7 cm (1.5 - 2.6) MV EXCURSION: 12.973 mm (> 18.000) MV EF SLOPE: 41 mm/s (70 - 150) EPSS: 0.4 cm MV E Chivo: 0.75 m/s MV DecT: 367 ms MV A Chivo: 0.82 m/s MV E/A Ratio: 0.92 RAP: 5.00 mmHg RVSP: 14.84 mmHg FINDINGS -------- Resting bradycardia (HR<60bpm). This was a technically difficult study with suboptimal views. The left ventricular size is normal. There is moderate concentric left ventricular hypertrophy. O verall left ventricular systolic function is normal with, an EF between 60 - 65 %. The right ventricle is mildly enlarged. The left atrial size is normal. The right atrium is normal in size. The aortic valve is trileaflet and appears structurally normal. The mitral valve is normal. Mild tricuspid regurgitation present. The pulmonic valve was not well visualized. The aortic root size is normal. IVC Not well visulized. There is no pericardial effusion. CONCLUSIONS -------- 1. Resting bradycardia (HR<60bpm). 2. This was a technically difficult study with suboptimal views. 3. The left ventricular size is normal. 4. There is moderate concentric left ventricular hypertrophy. 5. Overall left ventricular systolic function is normal with, an EF between 60 - 65 %. 6. The right ventricle is mildly enlarged. 7. The left atrial size is normal. 8. The right atrium is normal in size. 9. The aortic valve is trileaflet and appears structurally normal. 10. The mitral valve is normal. 11. Mild tricuspid regurgitation present. 12. The pulmonic valve was not well visualized. 13. The aortic root size is normal. 14. IVC Not well visulized. 15. There is no pericardial effusion. GEOSPATIAL SPECIALIST: CHRISTIANNE Henley
[2019-11-02] MEDS: ATORVASTATIN 10 MG TAB PO SCH (20:57)
[2019-11-02] MEDS: SODIUM CHLORIDE 0.9% 1,000 ML IV SCH ×2 (23:01→23:18)
[2019-11-02] MEDS: NOREPINEPHRINE 8 MG in SODIUM CHLORIDE 0.9% 250 ML IV SCH (23:27)
[2019-11-02 23:43] LABS: Glucose,Whole Blood 182 mg/dL (75-99)
[2019-11-03] MEDS: PIPERACILLIN-TAZOBACTAM 3.375 GM in SODIUM CHLORIDE 0.9% 100 ML IVPB SCH ×3 (03:42→20:04)
[2019-11-03] MEDS: SODIUM CHLORIDE 0.9% 1,000 ML IV SCH ×5 (03:45→19:42)
[2019-11-03 04:55] LABS: ABG Base Excess -5.5 mmol/L; ABG HCO3 20 mmol/L (21-25); ABG Oxygen Saturation 98.6 % (94-97); ABG PCO2 36 mmHg (35-45); ABG PH 7.36 (7.35-7.45); ABG PO2 118 mmHg (83-108); ABG TCO2 21 mmol/L (19-24); Allen Test Performed? Yes
[2019-11-03 05:23] LABS: Anisocytosis Slight; Basophils % (A) 0 %; Eosinophils % (A) 0 %; HCT 20.8 % (39.0-53.0); Lymphocytes # (A) 0.5 k/uL (1.0-4.8); Lymphocytes % (A) 6 %; MCHC 34.3 g/dL (31.0-37.0); MCV 90.6 fL (80.0-100.0); Mean Platelet Volume 8.3; Monocytes # (A) 0.2 k/uL (0-1.0); Monocytes % (A) 2 %; Neutrophils % (A) 91 %; Platelet Count 237 k/uL (150-450); RDW 16.1 % (11.5-15.5); WBC 8.8 k/uL (3.8-10.6)
[2019-11-03 05:24] LABS: HGB 7.1 gm/dL (13.0-17.5)
[2019-11-03] MEDS: LEVOTHYROXINE 125 MCG TAB PO SCH (05:43)
[2019-11-03] MEDS: INSULIN ASPART (NovoLOG) 100 UNIT/ML VIAL SQ SCH ×4 (05:43→23:34)
[2019-11-03 05:45] LABS: Glucose,Whole Blood 211 mg/dL (75-99)
[2019-11-03 05:46] LABS: Calcium 7.3 mg/dL (8.4-10.2); Potassium 5.1 mmol/L (3.5-5.1)
[2019-11-03] MEDS: PROPOFOL 1,000 MG in EMPTY BAG 1 BAG IV SCH ×4 (07:07→23:01)
[2019-11-03] MEDS: IPRATROPIUM-ALBUTEROL 3 ML NEB INHALATION SCH ×4 (07:23→21:33)
[2019-11-03] MEDS: FORMOTEROL FUMARATE 20 MCG/2 ML NEBU INHALATION SCH ×2 (07:24→21:33)
[2019-11-03] MEDS: BUDESONIDE 1 MG/2 ML NEBU INHALATION SCH ×2 (07:24→21:33)
--- NOTE | 2019-11-03 07:52 | XR ---
EXAMINATION TYPE: XR chest 1V DATE OF EXAM: 11/03/2019 CLINICAL HISTORY: Difficulty breathing progress study. TECHNIQUE: Single AP portable semiupright view of the chest is obtained. COMPARISON: Chest x-ray from one day earlier and older studies. FINDINGS: Stable endotracheal tube, orogastric tube, and right internal jugular central venous dina ter. Overlying EKG leads are redemonstrated. Cardiac silhouette size stable and upper limits of jose david l with bibasilar opacities and mild central vascular congestion. Right hilar consolidation remains pr esent. Osseous structures are intact. IMPRESSION: Overall stable findings from one day earlier. Mild central vascular congestion with suspe cted small left greater than right pleural effusions and associated bibasilar atelectasis and/or infi ltrate and right perihilar focal consolidation are all redemonstrated.
[2019-11-03] MEDS: NOREPINEPHRINE 8 MG in SODIUM CHLORIDE 0.9% 250 ML IV SCH (08:35)
[2019-11-03] MEDS ORDERED: SODIUM CHLORIDE 0.9% 2,000 ML IV ONE (08:52)
--- NOTE | 2019-11-03 08:59 | P.PN ---
Subjective Progress Note Date: 11/03/19 On 11/02/2019 I'm seeing this patient in follow-up after the he came back from the operating room for GI bleeding. The patient has been hospital for upper GI bleed. The patient had a duodenal ulcer. He was bleeding actively and has required a total of 8 units of packed RBC and 1 unit of fresh frozen plasma and this was given to him preoperatively. Patient was taken to the operating room and he had expiratory laparotomy and he had oversewing of a duodenal ulcer. Postop the patient was extubated in the operating room. He was unable to breathe, and he desaturated and he had to be reintubated. This morning the patient continues to be intubated on a mechanical ventilator. Is on propofol which is running at 50 g per KG per minute. He remains on assist control mode of ventilation at the rate of 24 with an FiO2 of 75% and a PEEP of 5 and a tidal volume of 450. The blood gas showed a pH of 7.36 with a pCO2 of 39 and pO2 109. Chest x-ray showing bilateral pleural effusions most on the right in addition to atelectatic changes in the right lung base. He is intubated by #8 orotracheal tube. No further bouts of bleeding. BP is 105/33 through his Artline. He is receiving IV fluids at the rate of 200 disease an hour and is on levo fed at the rate of 0.03 g per KG per minute. Urine output is in order of 15-20 mL an hour over the past 2 hours. The patient has a right IJ triple-lumen catheter. Cardiac rhythm is sinus. No significant tachycardia. Abdominal wound is clear. There is a IVELISSE drain in his right lower quadrant area. His current hemoglobin is at 8.8. intubated on mechanical ventilator. ] On today's evaluation of 11/03/2019, the patient is being seen in follow-up in his postop day #2 following a expiratory laparotomy, oversewing of a duodenal ulcer and control of the bleeding. Noted the patient was hemodynamically unstable and he has required a total of 8 units of packed RBC transfusion preoperatively. For now is postop day #2. Hemodynamically he is still a bit shaky. He still having lower urine output in the order of 20 mL an hour. Earlier this morning he developed a bout of hypotension, briefly placed on pressors and he subsequently improved. He is 7 kg positive in terms of his fluid balance and weight. He does have some increased edema lower extremity and the scrotum. Currently is on 200 mL an hour of normal saline. His CVP is at 5. His hemoglobin has dropped down to 7.1. No signs of any bleeding. He remains nothing by mouth. NG tube is in place. Output from the NG is in the order of minimal and output from the IVELISSE drain is in order of 1 8 mL over the past 24 hours. Abdomen is nondistended. He is afebrile. He remains on a mechanical ventilator. He is on assist control mode at the rate of 24 with a tidal volume of 450 and FiO2 was dropped down to 50% from a baseline of 60% and his PEEP is currently is at 8. He had a chest x-ray that showed improvement and atelectatic changes in lung bases and there is some small pleural effusion. No other medical issues otherwise. He is afebrile. He is nothing by mouth. No tachyc ardia. The rhythm is sinus. the wound site is dry clean and intact. Objective - Vital Signs Vital signs: Vital Signs Temp 97.8 F 11/03/19 08:00 Pulse 59 L 11/03/19 08:00 Resp 24 11/03/19 08:00 BP 109/52 11/03/19 08:00 Pulse Ox 96 11/03/19 08:00 Intake & Output 11/02/19 11/03/19 11/03/19 18:59 06:59 18:59 Intake Total 4862.419 3091.808 400 Output Total 217 458 85 Balance 4645.419 2633.808 315 Weight 106 kg Intake: IV 4550 2800 400 Ampicillin-Sulbactam 3 gm 100 100 In Sodium Chloride 0.9% 100 ml @ 200 mls/hr IVPB Q12HR [facility] Rx#:[id number] Fluconazole in NaCl,Iso- 50 Osm 100 mg In Saline 1 50ml.bag @ 50 mls/hr IVPB DAILY [facility] Rx#:[id number] LR 2200 800 Piperacillin-Tazobactam 3 100 200 .375 gm In Sodium Chloride 0.9% 100 ml @ 25 mls/hr IVPB Q8H [facility] Rx#: [id number] Sodium Chloride 0.9% 1, 1600 400 000 ml @ 200 mls/hr IV . Q5H [facility] Rx#:[id number] Sodium Chloride 0.9% 2, 2000 000 ml @ 999 mls/hr IV . Q2H1M [facility] Rx#:[id number] metroNIDAZOLE-NS PMX 500 100 100 mg In Saline 1 100ml.bag @ 100 mls/hr IVPB Q8HR [facility] Rx#:[id number] Intake, IV Titration 312.419 291.808 0 Amount Norepinephrine 8 mg In 56.666 0 Sodium Chloride 0.9% 250 ml @ 0.05 MCG/KG/MIN 9. 259 mls/hr IV .Q24H [facility] Rx#:[id number] Propofol 1,000 mg In 255.753 291.808 Empty Bag 1 bag @ Titrate IV .Q0M [facility] Rx#: [id number] Output: Drainage 60 120 40 Right Lower Abdomen 60 120 40 Urine 157 338 45 Other: Voiding Method Indwelling Catheter Indwelling Catheter ABP, PAP, CO, CI - Last Documented Arterial Blood Pressure 138/78 - Exam Gen. appearance, comfortable sedated and intubated on a mechanical ventilator has an orotracheal an NG tube in place. Head exam was generally normal. There was no scleral icterus or corneal arcus. Mucous membranes were moist. Neck was supple and without jugular venous distension, thyromegaly, or carotid bruits. Carotids were easily palpable bilaterally. There was no adenopathy. Lungs were clear to auscultation and percussion, and with normal diaphragmatic excursion. No wheezes or rales were noted. Breath sounds are diminished in lung bases bilaterally. Cardiac exam revealed the PMI to be normally situated and sized. The rhythm was regular and no extrasystoles were noted during several minutes of auscultation. The first and second heart sounds were normal and physiologic splitting of the second heart sound was noted. There were no murmurs, rubs, clicks, or gallops. Abdomen is soft and the patient has a mid abdominal incision with a IVELISSE drain in the right lower quadrant. Bowel sounds are hypoactive. Neck tenderness. No rebound tenderness. No guarding. Examination of the extremities revealed easily palpable radial, femoral and pedal pulses. There was no cyanosis, clubbing or edema. Examination of the skin revealed no evidence of significant rashes, suspicious appearing nevi or other concerning lesions. Neurologically sedated, comfortable - Labs CBC & Chem 7: 11/03/19 05:10 11/03/19 04:15 Labs: Abnormal Lab Results - Last 24 Hours (Table) 11/01/19 11/02/19 11/02/19 Range/Units 13:35 07:00 11:54 RBC (4.30-5.90) m/uL Hgb (13.0-17.5) gm/dL Hct (39.0-53.0) % RDW (11.5-15.5) % Neutrophils # (1.3-7.7) k/uL Lymphocytes # (1.0-4.8) k/uL ABG pO2 (83-108) mmHg ABG HCO3 (21-25) mmol/L ABG O2 Saturation (94-97) % Potassium 5.7 H (3.5-5.1) mmol/L Chloride 115 H (98-107) mmol/L Carbon Dioxide 21 L (22-30) mmol/L BUN 46 H (9-20) mg/dL Creatinine 2.89 H (0.66-1.25) mg/dL Glucose 156 H (74-99) mg/dL POC Glucose (mg/dL) 149 H (75-99) mg/dL Calcium 7.6 L (8.4-10.2) mg/dL AST 62 H (17-59) U/L ALT 50 H (4-49) U/L Total Protein 4.1 L (6.3-8.2) g/dL Albumin 2.0 L (3.5-5.0) g/dL Crossmatch See Detail 11/02/19 11/02/19 11/03/19 Range/Units 18:06 23:31 04:15 RBC (4.30-5.90) m/uL Hgb (13.0-17.5) gm/dL Hct (39.0-53.0) % RDW (11.5-15.5) % Neutrophils # (1.3-7.7) k/uL Lymphocytes # (1.0-4.8) k/uL ABG pO2 (83-108) mmHg ABG HCO3 (21-25) mmol/L ABG O2 Saturation (94-97) % Potassium (3.5-5.1) mmol/L Chloride 116 H (98-107) mmol/L Carbon Dioxide 19 L (22-30) mmol/L BUN 43 H (9-20) mg/dL Creatinine 3.13 H (0.66-1.25) mg/dL Glucose 181 H (74-99) mg/dL POC Glucose (mg/dL) 133 H 182 H (75-99) mg/dL Calcium 7.3 L (8.4-10.2) mg/dL AST (17-59) U/L ALT (4-49) U/L Total Protein (6.3-8.2) g/dL Albumin (3.5-5.0) g/dL Crossmatch 11/03/19 11/03/19 11/03/19 Range/Units 04:53 05:10 05:34 RBC 2.30 L (4.30-5.90) m/uL Hgb 7.1 L D (13.0-17.5) gm/dL Hct 20.8 L (39.0-53.0) % RDW 16.1 H (11.5-15.5) % Neutrophils # 8.0 H (1.3-7.7) k/uL Lymphocytes # 0.5 L (1.0-4.8) k/uL ABG pO2 118 H (83-108) mmHg ABG HCO3 20 L (21-25) mmol/L ABG O2 Saturation 98.6 H (94-97) % Potassium (3.5-5.1) mmol/L Chloride (98-107) mmol/L Carbon Dioxide (22-30) mmol/L BUN (9-20) mg/dL Creatinine (0.66-1.25) mg/dL Glucose (74-99) mg/dL POC Glucose (mg/dL) 211 H (75-99) mg/dL Calcium (8.4-10.2) mg/dL AST (17-59) U/L ALT (4-49) U/L Total Protein (6.3-8.2) g/dL Albumin (3.5-5.0) g/dL Crossmatch Microbiology - Last 24 Hours (Table) 11/02/19 01:15 Gram Stain - Preliminary Sputum Sputum Culture - Preliminary Assessment and Plan Plan: 1 acute upper GI bleed secondary to duodenal ulcer. The patient underwent exploratory laparotomy and oversewing of duodenal ulcer on today's postop day #2 2 blood loss anemia secondary to GI bleed, current has dropped down to 7.1. Likely dilutional as the patient is being aggressively resuscitated with IV fluids. Doubt bleeding. His order received a total of 8 units of packed RBC preoperatively, going to give him any additional packed RBC for now. 3 acute hypoxic respiratory failure with development of bilateral pleural effusion and atelectatic changes in lung bases, currently intubated on a mechanical ventilator.currently on a 8 of PEEP and FiO2 of 50% and his oxygenation has improved compared to yesterday and the chest x-ray shows improvement and atelectatic changes in the lung bases and effusions. 4 chronic kidney disease with ascending of the creatinine up to 3.2any diminished urine output. His Cohen catheter is patent and draining. 5 obstructive sleep apnea maintained on CPAP on outpatient basis 6 hyperlipidemia 7 hypothyroidism 8 hypertension history of 9 diabetes mellitus 10 osteoarthritis Plan Give the patient additional 2 L of IV fluids.i dropped a maintenance down to 100 mL. monitor hemoglobin, no transfusion as long as the hemoglobin is above 7 monitor renal function and proceed with an ultrasound of the kidneys Monitor CVP TPN for nutritional support Echo showed a normal left ventricular ejection fraction without any significant valvular abnormalities Continue weaning down the FiO2 and repeat chem be dropped down to 5 if he maintains an adequate oxygenation IV Protonix IV propofol ressors as if needed Continue IV Zosyn and Flagyl and Diflucan as empiric antibiotic coverage IV levo thyroxine 75 g SCD to lower extremities for DT prophylaxis No weaning trials for today. He may get a sedation holiday General surgeries on the case. We'll continue to follow and make further recommendations based on his progress. Critically care evaluation, 35 minutes. Time with Patient: Greater than 30
[2019-11-03] MEDS: methylPREDNISolone SOD SUCCI 40 MG/ML 1 ML VIAL IV SCH ×3 (09:03→23:34)
[2019-11-03] MEDS: FLUCONAZOLE IN NACL,ISO-OSM 100 MG in SALINE 1 50ML.BAG IVPB SCH (09:03)
[2019-11-03] MEDS: metroNIDAZOLE-NS PMX 500 MG in SALINE 1 100ML.BAG IVPB SCH ×3 (09:04→23:34)
[2019-11-03] MEDS: LEVOTHYROXINE IVP 100 MCG/5 ML VIAL IV SCH (09:05)
[2019-11-03] MEDS: LIDOCAINE 5% PATCH TOPICAL SCH (09:05)
[2019-11-03] MEDS: CHLORHEXIDINE GLUCONATE 15 ML CUP MUCOUS MEM SCH ×2 (09:05→20:37)
[2019-11-03] MEDS: METOPROLOL TARTRATE 50 MG TAB PO SCH ×2 (09:06→20:07)
[2019-11-03] MEDS: PREGABALIN 50 MG CAP PO SCH ×2 (09:06→20:07)
[2019-11-03] MEDS: NICOTINE 14MG/24HR PATCH TRANSDERM SCH (09:06)
[2019-11-03] MEDS: LIOTHYRONINE SODIUM 5 MCG TAB PO SCH (09:06)
[2019-11-03] MEDS: PANTOPRAZOLE 40 MG/10 ML VIAL IV SCH ×2 (09:06→20:36)
[2019-11-03] MEDS: LINAGLIPTIN 5 MG TABLET PO SCH (09:06)
[2019-11-03 10:32] LABS: Magnesium 1.8 mg/dL (1.6-2.3); Phosphorus 4.8 mg/dL (2.5-4.5)
--- NOTE | 2019-11-03 10:37 | US ---
EXAMINATION TYPE: US kidneys/renal and bladder DATE OF EXAM: 11/03/2019 COMPARISON: NONE CLINICAL HISTORY: ALMA. Intubated ICU patient with ALMA, GI bleed, diabetes, decreased urinary output p er patient's RN. EXAM MEASUREMENTS: Right Kidney: 8.9 x 6.8 x 4.7 cm Left Kidney: 11.5 x 4.9 x 4.7 cm Post Void Residual Volume: not assessed as indwelling bladder catheter is present. Right Kidney: No hydronephrosis or masses seen Left Kidney: mid pole cyst seen = 1.2 x 1.1 x 1.2cm Bladder: indwelling bladder catheter is present with internal echoes seen within catheter (should nor americo be anechoic within indwelling catheter). There is no evidence for hydronephrosis at this point in time. No nephrolithiasis is seen. IMPRESSION: 1. No hydronephrosis or nephrolithiasis. 2. Decompressed urinary bladder as there is a catheter in place. 3. Left renal midpole cyst. 4. Some internal echoes are seen within the indwelling catheter. Correlation with urinalysis is recom mended to assess for blood products or debris.
[2019-11-03 12:00] LABS: Glucose,Whole Blood 222 mg/dL (75-99)
[2019-11-03 12:28] LABS: Glucose,Whole Blood 237 mg/dL (75-99)
[2019-11-03] MEDS ORDERED: MVI, ADULT NO.4 WITH VIT K 10 ML, TRACE (CONC-1ML/DOSE) 1 ML, SODIUM ACETATE 30 MEQ, MA... IV SCH ×6 (12:30)
[2019-11-03 12:50] LABS: Anisocytosis Slight; Basophils % (A) 0 %; Eosinophils % (A) 0 %; Hypochromasia Slight; Lymphocytes # (A) 0.5 k/uL (1.0-4.8); Lymphocytes % (A) 6 %; MCH 30.4 pg (25.0-35.0); MCHC 33.5 g/dL (31.0-37.0); MCV 90.9 fL (80.0-100.0); Mean Platelet Volume 8.1; Monocytes # (A) 0.2 k/uL (0-1.0); Monocytes % (A) 3 %; Neutrophils # (A) 8.1 k/uL (1.3-7.7); Neutrophils % (A) 90 %; Platelet Count 234 k/uL (150-450); RBC 2.12 m/uL (4.30-5.90); RDW 16.1 % (11.5-15.5); WBC 8.9 k/uL (3.8-10.6)
[2019-11-03 12:56] LABS: HGB 6.5 gm/dL (13.0-17.5)
[2019-11-03 12:57] LABS: HCT 19.3 % (39.0-53.0)
[2019-11-03 17:56] LABS: Glucose,Whole Blood 260 mg/dL (75-99)
[2019-11-03 19:25] LABS: Basophils % (A) 0 %; Eosinophils % (A) 0 %; HGB 7.9 gm/dL (13.0-17.5); Lymphocytes # (A) 0.5 k/uL (1.0-4.8); Lymphocytes % (A) 5 %; MCH 29.8 pg (25.0-35.0); MCHC 32.8 g/dL (31.0-37.0); Mean Platelet Volume 8.4; Monocytes # (A) 0.3 k/uL (0-1.0); Monocytes % (A) 3 %; Neutrophils # (A) 9.2 k/uL (1.3-7.7); Neutrophils % (A) 91 %; Platelet Count 221 k/uL (150-450); RBC 2.63 m/uL (4.30-5.90); RDW 15.8 % (11.5-15.5); WBC 10.1 k/uL (3.8-10.6)
[2019-11-03] MEDS: ATORVASTATIN 10 MG TAB PO SCH (20:07)
--- NOTE | 2019-11-03 20:39 | P.PN ---
Subjective Progress Note Date: 11/03/19 Principal diagnosis: duodenal ulcer Patient was found her today to have a decreased hemoglobin. Repeat was checked and was down to 6.5. He received 1 unit hemoglobin now up to 7.9. NG tube is remained bilious throughout the day. He is having no rectal bleeding. She requirements have decreased. Was on Levaquin for a very short period of time. Responded well to IV bolus. Marginal urine output during the evening but better today. White blood cell count is normal. IVELISSE drain is serosanguineous. Objective - Vital Signs Vital signs: Vital Signs Temp 97.5 F L 11/03/19 20:00 Pulse 66 11/03/19 20:00 Resp 24 11/03/19 20:00 BP 129/62 11/03/19 20:00 Pulse Ox 96 11/03/19 20:00 Intake & Output 11/03/19 11/03/19 11/04/19 06:59 18:59 06:59 Intake Total 3091.808 3960 100 Output Total 458 610 395 Balance 2633.808 3350 -295 Weight 106 kg 106 kg Intake: IV 2800 3550 100 Ampicillin-Sulbactam 3 gm 100 In Sodium Chloride 0.9% 100 ml @ 200 mls/hr IVPB Q12HR [facility] Rx#:[id number] Fluconazole in NaCl,Iso- 50 Osm 100 mg In Saline 1 50ml.bag @ 50 mls/hr IVPB DAILY [facility] Rx#:[id number] LR 800 Piperacillin-Tazobactam 3 200 100 .375 gm In Sodium Chloride 0.9% 100 ml @ 25 mls/hr IVPB Q8H [facility] Rx#: [id number] Sodium Chloride 0.9% 1, 1600 1200 100 000 ml @ 100 mls/hr IV . Q10H [facility] Rx#:[id number] Sodium Chloride 0.9% 2, 2000 000 ml @ 999 mls/hr IV . Q2H1M [facility] Rx#:[id number] metroNIDAZOLE-NS PMX 500 100 200 mg In Saline 1 100ml.bag @ 100 mls/hr IVPB Q8HR [facility] Rx#:[id number] Intake, IV Titration 291.808 100 Amount Norepinephrine 8 mg In 0 Sodium Chloride 0.9% 250 ml @ 0.05 MCG/KG/MIN 9. 259 mls/hr IV .Q24H [facility] Rx#:[id number] Propofol 1,000 mg In 291.808 100 Empty Bag 1 bag @ Titrate IV .Q0M [facility] Rx#: [id number] Blood Product 310 Rc As-1 Unit 310 [id number] Output: Gastric Drainage 350 Drainage 120 180 Right Lower Abdomen 120 180 Urine 338 430 45 Other: Voiding Method Indwelling Catheter ABP, PAP, CO, CI - Last Documented Arterial Blood Pressure 143/46 - Exam Abdomen: Soft, mild distention, incision with [address], scant drainage, minimal tenderness - Labs CBC & Chem 7: 11/03/19 19:15 11/03/19 04:15 Labs: Abnormal Lab Results - Last 24 Hours (Table) 11/01/19 11/02/19 11/03/19 Range/Units 13:35 23:31 04:15 RBC (4.30-5.90) m/uL Hgb (13.0-17.5) gm/dL Hct (39.0-53.0) % RDW (11.5-15.5) % Neutrophils # (1.3-7.7) k/uL Lymphocytes # (1.0-4.8) k/uL ABG pO2 (83-108) mmHg ABG HCO3 (21-25) mmol/L ABG O2 Saturation (94-97) % Chloride 116 H (98-107) mmol/L Carbon Dioxide 19 L (22-30) mmol/L BUN 43 H (9-20) mg/dL Creatinine 3.13 H (0.66-1.25) mg/dL Glucose 181 H (74-99) mg/dL POC Glucose (mg/dL) 182 H (75-99) mg/dL Calcium 7.3 L (8.4-10.2) mg/dL Phosphorus (2.5-4.5) mg/dL Crossmatch See Detail 11/03/19 11/03/19 11/03/19 Range/Units 04:15 04:53 05:10 RBC 2.30 L (4.30-5.90) m/uL Hgb 7.1 L D (13.0-17.5) gm/dL Hct 20.8 L (39.0-53.0) % RDW 16.1 H (11.5-15.5) % Neutrophils # 8.0 H (1.3-7.7) k/uL Lymphocytes # 0.5 L (1.0-4.8) k/uL ABG pO2 118 H (83-108) mmHg ABG HCO3 20 L (21-25) mmol/L ABG O2 Saturation 98.6 H (94-97) % Chloride (98-107) mmol/L Carbon Dioxide (22-30) mmol/L BUN (9-20) mg/dL Creatinine (0.66-1.25) mg/dL Glucose (74-99) mg/dL POC Glucose (mg/dL) (75-99) mg/dL Calcium (8.4-10.2) mg/dL Phosphorus 4.8 H (2.5-4.5) mg/dL Crossmatch 11/03/19 11/03/19 11/03/19 Range/Units 05:34 11:48 12:17 RBC (4.30-5.90) m/uL Hgb (13.0-17.5) gm/dL Hct (39.0-53.0) % RDW (11.5-15.5) % Neutrophils # (1.3-7.7) k/uL Lymphocytes # (1.0-4.8) k/uL ABG pO2 (83-108) mmHg ABG HCO3 (21-25) mmol/L ABG O2 Saturation (94-97) % Chloride (98-107) mmol/L Carbon Dioxide (22-30) mmol/L BUN (9-20) mg/dL Creatinine (0.66-1.25) mg/dL Glucose (74-99) mg/dL POC Glucose (mg/dL) 211 H 222 H 237 H (75-99) mg/dL Calcium (8.4-10.2) mg/dL Phosphorus (2.5-4.5) mg/dL Crossmatch 11/03/19 11/03/19 11/03/19 Range/Units 12:19 17:44 19:15 RBC 2.12 L 2.63 L (4.30-5.90) m/uL Hgb 6.5 L* 7.9 L (13.0-17.5) gm/dL Hct 19.3 L* 24.0 L (39.0-53.0) % RDW 16.1 H 15.8 H (11.5-15.5) % Neutrophils # 8.1 H 9.2 H (1.3-7.7) k/uL Lymphocytes # 0.5 L 0.5 L (1.0-4.8) k/uL ABG pO2 (83-108) mmHg ABG HCO3 (21-25) mmol/L ABG O2 Saturation (94-97) % Chloride (98-107) mmol/L Carbon Dioxide (22-30) mmol/L BUN (9-20) mg/dL Creatinine (0.66-1.25) mg/dL Glucose (74-99) mg/dL POC Glucose (mg/dL) 260 H (75-99) mg/dL Calcium (8.4-10.2) mg/dL Phosphorus (2.5-4.5) mg/dL Crossmatch Microbiology - Last 24 Hours (Table) 11/02/19 01:15 Gram Stain - Preliminary Sputum Sputum Culture - Preliminary Yeast species Assessment and Plan (1) Bleeding duodenal ulcer Narrative/Plan: Patient overall gradually improving. Drop in hemoglobin discussed in detail with the family. No evidence of active bleeding currently. Continue to monitor hemoglobin closely. If bleeding does recur will recommend tertiary care evaluation for possible angioembolization. Continue weaning from ventilator as tolerated. Continue nasogastric tube suction. Continue broad-spectrum antibi otics. Change abdominal incision michael. Clinical scenario discussed in detail with the patient. Spent greater than 30 minutes with the family on 2 separate occasions. Questions they had regarding his care up to this point answered to the best of my ability. Current Visit: Yes Status: Acute Code(s): K26.4 - CHRONIC OR UNSPECIFIED DUODENAL ULCER WITH HEMORRHAGE SNOMED Code(s): 54351724
[2019-11-03] MEDS: HYDROmorphone 0.5 MG/0.5 ML SYRINGE IVP PRN (22:13)
--- NOTE | 2019-11-03 23:33 | P.PN ---
Subjective Progress Note Date: 11/02/19 Principal diagnosis: GI bleed; status post EGD/colonoscopy Duodenal ulcer/ischemic colitis 10/30/2017 patient seen in follow-up in the intensive care unit; patient's family is at bedside and had multiple questions which were all addressed to her satisfaction; patient is status post EGD/colonoscopy which revealed a duodenal ulcer, that was not actively bleeding with a large anterior and clot in the second portion of the duodenum. Colonoscopy revealed ischemic colitis in the left colon with biopsies taken. However the procedure had to be aborted related to poor prep. Lab review shows hemoglobin is 6.8, patient has had 2 units of blood already, and he is receiving an additional unit of blood this morning. Hemodynamically patient is stable, receiving IV fluids, with 0.9 normal saline at a rate of 100 ML per hour. He remains on high flow oxygen, at 10 L and his pulse ox is 92- 93%. Complaints of chest pain, patient does have exertional dyspnea, today's chest x-ray has been reviewed, showing bibasilar atelectasis and bilateral pleural effusions. Patient is still getting IV fluids at a rate of 100, we will turn it was down, and give the patient a dose of IV Lasix, today's labs have been reviewed, showing white blood cell count 8.3, hemoglobin of 6.8, platelet count 293, sodium was 143, potassium was 5.4, chloride was 117, CO2 was 22, BUN was 53, creatinine was 2.94. No report of any further rectal bleeding; we will continue to monitor H&H closely and transfuse when needed 10/31/2019 patient is seen and evaluatedin follow-up in the intensive care unit. He is awake and alert in no acute distress. His hemoglobin was 6.6 earlier this morning. He is receiving his fourth unit of packed red blood cells in total this admission. He did undergo an EGD this morning and was found to have a large adherent clot along the duodenal sweep which was removed. A deep ulcerati on with active bleeding was visible. Epinephrine and Endo Clip placement obtained good hemostasis. There are large clots in the stomach. NG tube remains in place. He remains on Protonix 40 mg every 12 hours. Surgical consult was placed. He is currently afebrile. Hemodynamically stable. He is on 10 L high flow nasal cannula to maintain O2 saturations in the mid 90s. 0.9 normal saline at 50 MLS per hour. Remains on Unasyn. Chest x-ray shows some evidence of fluid volume overload and small effusions. White count 5.1. Creatinine 2.77. patient's family is at bedside and on inquiring about transferring the patient to [place]; did advise and son that patient is unstable at this time and family will have to discuss this with case management on Saturday11/01/2019 Patient is seen and evaluated in the room at bedside; patient has been having profuse rectal bleeding; patient underwent EGD which showed bleeding duodenal ulcer, Endo Clip was applied; patient had an episode of dark stools during the night but started bleeding profusely this afternoon; stat H&H is done which shows hemoglobin at 6.0; patient has been started on IV Levophed to maintain blood pressure; patient was evaluated by GI, ICU team and surgery and was recommended transferred to a tertiary care center; [facility] was consulted and transfer arrangements to [facility] surgical ICU were made; patient was deemed unstable for transfer and is taken to OR by the surgical team. 11/02/2019 patient wasadmitted to the hospital with upper GI bleed and was found have duodenal ulcer. due to active bleeding patient was taken to operating room for exploratory laparotomy. Postoperatively patient was intubated. Patient is currently remained on mechanical ventilator. chest x-ray showed bilateral pleural effusions mainly right side with atelectatic changes. Patient is on Levothroid drip and his IV FLUIDS. HEMOGLOBIN8.8, potassium 5.7, BUN/creatinine 46/ 2.89 current medications reviewed. Objective - Vital Signs Vital signs: Vital Signs Temp 98.1 F 11/02/19 20:00 Pulse 64 11/02/19 21:00 Resp 24 11/02/19 21:00 BP 120/56 11/02/19 21:00 Pulse Ox 98 11/02/19 21:00 Intake & Output 11/02/19 11/02/19 11/03/19 06:59 18:59 06:59 Intake Total 4624.499 4862.419 900 Output Total 170 217 75 Balance 4454.499 4645.419 825 Weight 97.1 kg Intake: IV 4350 4550 800 Ampicillin-Sulbactam 3 gm 100 100 100 In Sodium Chloride 0.9% 100 ml @ 200 mls/hr IVPB Q12HR [facility] Rx#:[id number] Fluconazole in NaCl,Iso- 50 50 Osm 100 mg In Saline 1 50ml.bag @ 50 mls/hr IVPB DAILY [facility] Rx#:[id number] LR 1999 2200 600 Lactated Ringers 1,000 ml 2000 @ 999 mls/hr IV .Q1H1M [facility] Rx#:[id number] Piperacillin-Tazobactam 3 100 100 100 .375 gm In Sodium Chloride 0.9% 100 ml @ 25 mls/hr IVPB Q8H [facility] Rx#: [id number] Sodium Chloride 0.9% 2, 2000 000 ml @ 999 mls/hr IV . Q2H1M [facility] Rx#:[id number] metroNIDAZOLE-NS PMX 500 100 100 mg In Saline 1 100ml.bag @ 100 mls/hr IVPB Q8HR [facility] Rx#:[id number] Intake, IV Titration 274.499 312.419 100 Amount Norepinephrine 8 mg In 174.499 56.666 Sodium Chloride 0.9% 250 ml @ 0.05 MCG/KG/MIN 9. 259 mls/hr IV .Q24H [facility] Rx#:[id number] Propofol 1,000 mg In 100.000 255.753 100 Empty Bag 1 bag @ Titrate IV .Q0M [facility] Rx#: [id number] Output: Drainage 60 Right Lower Abdomen 60 Urine 170 157 75 Other: Voiding Method Indwelling Catheter Indwelling Catheter ABP, PAP, CO, CI - Last Documented Arterial Blood Pressure 135/37 - Exam PHYSICAL EXAMINATION: patient is currently sedated and on mechanical ventilator... HEENT: Normocephalic. Neck is supple. Pupils reactive. Nostrils clear. Oral cavity is moist. Ears reveal no drainage. Neck reveals no JVD, carotid bruits, or thyromegaly. CHEST EXAMINATION: Trachea is central. Symmetrical expansion. bibasilar diminished air entry. No wheezing.. CARDIAC: Normal S1, S2 with no gallops. No murmurs ABDOMEN: Soft. Bowel sounds diminished. Surgical wound is intact and clean.. No organomegaly. No abdominal bruits. Extremities: reveal no edema. No clubbing or cyanosis Neurologically patient is currently sedated and on mechanical ventilator.. Nocross focal deficits noted Skin: No rash or skin lesions. Psychiatric: could not be assessed at this time. Musculoskeletal: No joint swelling or deformity. - Labs CBC & Chem 7: 11/03/19 19:15 11/03/19 04:15 Labs: Abnormal Lab Results - Last 24 Hours (Table) 11/01/19 11/02/19 11/02/19 Range/Units 21:16 00:04 01:15 WBC (3.8-10.6) k/uL RBC (4.30-5.90) m/uL Hgb (13.0-17.5) gm/dL Hct (39.0-53.0) % RDW (11.5-15.5) % Neutrophils # (1.3-7.7) k/uL Lymphocytes # (1.0-4.8) k/uL ABG pO2 (83-108) mmHg ABG O2 Saturation (94-97) % Potassium 5.6 H (3.5-5.1) mmol/L Chloride 115 H (98-107) mmol/L Carbon Dioxide (22-30) mmol/L BUN 45 H (9-20) mg/dL Creatinine 2.73 H (0.66-1.25) mg/dL Glucose 157 H (74-99) mg/dL POC Glucose (mg/dL) 160 H 179 H (75-99) mg/dL Calcium 7.5 L (8.4-10.2) mg/dL AST (17-59) U/L ALT (4-49) U/L Total Protein (6.3-8.2) g/dL Albumin (3.5-5.0) g/dL 11/02/19 11/02/19 11/02/19 Range/Units 01:15 05:04 06:00 WBC 12.8 H (3.8-10.6) k/uL RBC 2.92 L (4.30-5.90) m/uL Hgb 8.7 L (13.0-17.5) gm/dL Hct 25.9 L (39.0-53.0) % RDW 16.0 H (11.5-15.5) % Neutrophils # 11.1 H (1.3-7.7) k/uL Lymphocytes # 0.9 L (1.0-4.8) k/uL ABG pO2 109 H (83-108) mmHg ABG O2 Saturation 98.3 H (94-97) % Potassium (3.5-5.1) mmol/L Chloride (98-107) mmol/L Carbon Dioxide (22-30) mmol/L BUN (9-20) mg/dL Creatinine (0.66-1.25) mg/dL Glucose (74-99) mg/dL POC Glucose (mg/dL) 189 H (75-99) mg/dL Calcium (8.4-10.2) mg/dL AST (17-59) U/L ALT (4-49) U/L Total Protein (6.3-8.2) g/dL Albumin (3.5-5.0) g/dL 11/02/19 11/02/19 11/02/19 Range/Units 06:55 07:00 11:54 WBC 10.9 H (3.8-10.6) k/uL RBC 2.89 L (4.30-5.90) m/uL Hgb 8.8 L (13.0-17.5) gm/dL Hct 25.6 L (39.0-53.0) % RDW 16.0 H (11.5-15.5) % Neutrophils # 9.7 H (1.3-7.7) k/uL Lymphocytes # 0.9 L (1.0-4.8) k/uL ABG pO2 (83-108) mmHg ABG O2 Saturation (94-97) % Potassium 5.7 H (3.5-5.1) mmol/L Chloride 115 H (98-107) mmol/L Carbon Dioxide 21 L (22-30) mmol/L BUN 46 H (9-20) mg/dL Creatinine 2.89 H (0.66-1.25) mg/dL Glucose 156 H (74-99) mg/dL POC Glucose (mg/dL) 149 H (75-99) mg/dL Calcium 7.6 L (8.4-10.2) mg/dL AST 62 H (17-59) U/L ALT 50 H (4-49) U/L Total Protein 4.1 L (6.3-8.2) g/dL Albumin 2.0 L (3.5-5.0) g/dL 11/02/19 Range/Units 18:06 WBC (3.8-10.6) k/uL RBC (4.30-5.90) m/uL Hgb (13.0-17.5) gm/dL Hct (39.0-53.0) % RDW (11.5-15.5) % Neutrophils # (1.3-7.7) k/uL Lymphocytes # (1.0-4.8) k/uL ABG pO2 (83-108) mmHg ABG O2 Saturation (94-97) % Potassium (3.5-5.1) mmol/L Chloride (98-107) mmol/L Carbon Dioxide (22-30) mmol/L BUN (9-20) mg/dL Creatinine (0.66-1.25) mg/dL Glucose (74-99) mg/dL POC Glucose (mg/dL) 133 H (75-99) mg/dL Calcium (8.4-10.2) mg/dL AST (17-59) U/L ALT (4-49) U/L Total Protein (6.3-8.2) g/dL Albumin (3.5-5.0) g/dL Microbiology - Last 24 Hours (Table) 11/02/19 01:15 Gram Stain - Preliminary Sputum Sputum Culture - Preliminary Assessment and Plan Assessment: Acute blood loss anemia secondary to duodenal ulcer. Status post exploratory laparotomy and oversewing of duodenal ulcer on 11 01 2019 - Patient is status post EGD/colonoscopy which revealed duodenal ulcer without any active bleeding with the large interior clot in the second portion of duodenum; colonoscopy revealed ischemic colitis and left colon. Patient is presently on Protonix IV twice a day -cute hypoxic respiratory failure with bilateral pleural effusion and atelectasis. Currently on mechanical ventilator. -coronary artery disease continue with metoprolol hold off rest of the blood pressure medications and aspirin because of GI bleed -Hypertension patient is presently hypotensive secondary to GI bleed holding off on lisinopril, hydralazine. -Renal failure: I do not have any previous creatinine available patient denied any history of chronic kidney disease, patient may have acute renal failure from prerenal azotemia from acute GI bleed. 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 -Continued nicotine use: Counseling was provided for above-mentioned chronic medical problems patient will be resumed on appropriate home medications. -DVT prophylaxis with SCDs due to GI leed plan: patient will be continued on IV hydration andwean offLevophed. on mechanical ventilator. Continue with empiric antibiotics in the form of Zosyn and Flagyl. continue with IV Protonix. pulmonary and General surgery is following. Time with Patient: Greater than 30
--- NOTE | 2019-11-03 23:38 | P.PN ---
Subjective Progress Note Date: 11/03/19 Principal diagnosis: GI bleed; status post EGD/colonoscopy Duodenal ulcer/ischemic colitis 10/30/2017 patient seen in follow-up in the intensive care unit; patient's family is at bedside and had multiple questions which were all addressed to her satisfaction; patient is status post EGD/colonoscopy which revealed a duodenal ulcer, that was not actively bleeding with a large anterior and clot in the second portion of the duodenum. Colonoscopy revealed ischemic colitis in the left colon with biopsies taken. However the procedure had to be aborted related to poor prep. Lab review shows hemoglobin is 6.8, patient has had 2 units of blood already, and he is receiving an additional unit of blood this morning. Hemodynamically patient is stable, receiving IV fluids, with 0.9 normal saline at a rate of 100 ML per hour. He remains on high flow oxygen, at 10 L and his pulse ox is 92- 93%. Complaints of chest pain, patient does have exertional dyspnea, today's chest x-ray has been reviewed, showing bibasilar atelectasis and bilateral pleural effusions. Patient is still getting IV fluids at a rate of 100, we will turn it was down, and give the patient a dose of IV Lasix, today's labs have been reviewed, showing white blood cell count 8.3, hemoglobin of 6.8, platelet count 293, sodium was 143, potassium was 5.4, chloride was 117, CO2 was 22, BUN was 53, creatinine was 2.94. No report of any further rectal bleeding; we will continue to monitor H&H closely and transfuse when needed 10/31/2019 patient is seen and evaluatedin follow-up in the intensive care unit. He is awake and alert in no acute distress. His hemoglobin was 6.6 earlier this morning. He is receiving his fourth unit of packed red blood cells in total this admission. He did undergo an EGD this morning and was found to have a large adherent clot along the duodenal sweep which was removed. A deep ulcerati on with active bleeding was visible. Epinephrine and Endo Clip placement obtained good hemostasis. There are large clots in the stomach. NG tube remains in place. He remains on Protonix 40 mg every 12 hours. Surgical consult was placed. He is currently afebrile. Hemodynamically stable. He is on 10 L high flow nasal cannula to maintain O2 saturations in the mid 90s. 0.9 normal saline at 50 MLS per hour. Remains on Unasyn. Chest x-ray shows some evidence of fluid volume overload and small effusions. White count 5.1. Creatinine 2.77. patient's family is at bedside and on inquiring about transferring the patient to [place]; did advise and son that patient is unstable at this time and family will have to discuss this with case management on Saturday11/01/2019 Patient is seen and evaluated in the room at bedside; patient has been having profuse rectal bleeding; patient underwent EGD which showed bleeding duodenal ulcer, Endo Clip was applied; patient had an episode of dark stools during the night but started bleeding profusely this afternoon; stat H&H is done which shows hemoglobin at 6.0; patient has been started on IV Levophed to maintain blood pressure; patient was evaluated by GI, ICU team and surgery and was recommended transferred to a tertiary care center; [facility] was consulted and transfer arrangements to [facility] surgical ICU were made; patient was deemed unstable for transfer and is taken to OR by the surgical team. 11/02/2019 patient wasadmitted to the hospital with upper GI bleed and was found have duodenal ulcer. due to active bleeding patient was taken to operating room for exploratory laparotomy. Postoperatively patient was intubated. Patient is currently remained on mechanical ventilator. chest x-ray showed bilateral pleural effusions mainly right side with atelectatic changes. Patient is on Levothroid drip and his IV FLUIDS. HEMOGLOBIN8.8, potassium 5.7, BUN/creatinine 46/ 2.89 11/03/2019 Patient iscurrentlyremained on mechanical ventilator. Hemoglobin 7.1 today. Patient initially received 8 units of PRBC transfusion preoperatively.Patient is still requiring pressor support on and off. Patient is currently on NG tube. TPN is being started today. chest x-ray showed improvement of atelectatic changes in the lung bases and small pleural effusion. patient has been afebrile. No abdominal distention. Surgical wound is intact. No leukocytosis. bUN/creatinine 43 x 3.13 current medications reviewed. Active Medications Albuterol/Ipratropium (Duoneb 0.5 Mg-3 Mg/3 Ml Soln) 3 ml INHALATION RT-QID [facility] Last Admin: 11/03/19 21:33 Dose: 3 ml Documented by: Atorvastatin Calcium (Lipitor) 10 mg PO HS [facility] Last Admin: 11/03/19 20:07 Dose: Not Given Documented by: Budesonide (Pulmicort) 1 mg INHALATION RT-BID [facility] Last Admin: 11/03/19 21:33 Dose: 1 mg Documented by: Chlorhexidine Gluconate (Peridex) 15 ml MUCOUS MEM BID [facility] Last Admin: 11/03/19 20:37 Dose: 15 ml Documented by: Formoterol Fumarate (Perforomist) 20 mcg INHALATION RT-BID [facility] Last Admin: 11/03/19 21:33 Dose: 20 mcg Documented by: Hydromorphone HCl (Dilaudid) 1 mg IVP Q2HR PRN PRN Reason: Pain Hydromorphone HCl (Dilaudid) 0.5 mg IVP Q2H PRN PRN Reason: Pain Last Admin: 11/03/19 22:13 Dose: 0.5 mg Documented by: Sodium Chloride (Saline 0.9%) 1,000 mls @ 100 mls/hr IV .Q10H [facility] Last Admin: 11/03/19 19:42 Dose: 100 mls/hr Documented by: Norepinephrine Bitartrate 8 mg (/ Sodium Chloride) 258 mls @ 9.259 mls/hr IV .Q24H [facility]; Protocol Last Admin: 11/03/19 08:35 Dose: 0.05 mcg/kg/min, 9.259 mls/hr Documented by: Propofol 1,000 mg/ IV Solution 100 mls @ 0 mls/hr IV .Q0M [facility]; Protocol Last Admin: 11/03/19 23:01 Dose: 65 mcg/kg/min, 37.869 mls/hr Documented by: Fluconazole/Sodium Chloride (100 mg/ IV Solution) 50 mls @ 50 mls/hr IVPB DAILY [facility] Last Admin: 11/03/19 09:03 Dose: 50 mls/hr Documented by: Piperacillin Sod/Tazobactam (Sod 3.375 gm/ Sodium Chloride) 100 mls @ 25 mls/hr IVPB Q8H [facility] Last Admin: 11/03/19 20:04 Dose: 25 mls/hr Documented by: Metronidazole 500 mg/ IV (Solution) 100 mls @ 100 mls/hr IVPB Q8HR [facility] Last Admin: 11/03/19 23:34 Dose: 100 mls/hr Documented by: Parenteral Vitamin Supplement 10 ml/ Chromium/Copper/Manganese/Seleni/Zn 1 ml/Sodium Acetate 30 meq/Magnesium Sulfate 1 gm/Calcium Gluconate 1 gm/ Amino Acids/Dextrose 1,038 mls @ 30 mls/hr IV .Q24H [facility] Stop: 11/04/19 12:29 Last Admin: 11/03/19 14:04 Dose: 30 mls/hr Documented by: Parenteral Vitamin Supplement 10 ml/ Chromium/Copper/Manganese/Seleni/Zn 1 ml/Sodium Acetate 30 meq/Magnesium Sulfate 0.5 gm/Calcium Gluconate 1 gm/ Amino Acids/Dextrose 1,037 mls @ 60 mls/hr IV .[id number] [facility] Insulin Aspart (Novolog) 0 unit SQ Q6H [facility]; Protocol Last Admin: 11/03/19 23:34 Dose: 5 unit Documented by: Levothyroxine Sodium (Synthroid) 125 mcg PO DAILY@0630 [facility] Last Admin: 11/03/19 05:43 Dose: Not Given Documented by: Levothyroxine Sodium (Synthroid Ivp) 75 mcg IV DAILY [facility] Last Admin: 11/03/19 09:05 Dose: 75 mcg Documented by: Lidocaine (Lidoderm) 1 patch TOPICAL DAILY [facility] Last Admin: 11/03/19 09:05 Dose: 1 patch Documented by: Linagliptin (Tradjenta) 5 mg PO DAILY [facility] Last Admin: 11/03/19 09:06 Dose: Not Given Documented by: Liothyronine Sodium (Cytomel) 5 mcg PO DAILY [facility] Last Admin: 11/03/19 09:06 Dose: Not Given Documented by: Methylprednisolone Sodium Succinate (Solu-Medrol) 40 mg IV Q8HR [facility] Last Admin: 11/03/19 23:34 Dose: 40 mg Documented by: Metoprolol Tartrate (Lopressor) 50 mg PO BID [facility] Last Admin: 11/03/19 20:07 Dose: Not Given Documented by: Naloxone HCl (Narcan) 0.2 mg IV Q2M PRN PRN Reason: Opioid Reversal Nicotine (Habitrol 14mg/24hr Patch) 1 patch TRANSDERM DAILY [facility] Last Admin: 11/03/19 09:06 Dose: 1 patch Documented by: Pantoprazole Sodium (Protonix) 40 mg IV BID [facility] Last Admin: 11/03/19 20:36 Dose: 40 mg Documented by: Pregabalin (Lyrica) 50 mg PO BID [facility] Last Admin: 11/03/19 20:07 Dose: Not Given Documented by: Objective - Vital Signs Vital signs: Vital Signs Temp 97.3 F L 11/03/19 17:25 Pulse 59 L 11/03/19 17:25 Resp 24 11/03/19 17:25 BP 112/54 11/03/19 17:25 Pulse Ox 97 11/03/19 17:25 Intake & Output 11/02/19 11/03/19 11/03/19 18:59 06:59 18:59 Intake Total 4862.419 3091.808 3460 Output Total 217 458 430 Balance 4645.419 2633.808 3030 Weight 106 kg 106 kg Intake: IV 4550 2800 3050 Ampicillin-Sulbactam 3 gm 100 100 In Sodium Chloride 0.9% 100 ml @ 200 mls/hr IVPB Q12HR [facility] Rx#:[id number] Fluconazole in NaCl,Iso- 50 50 Osm 100 mg In Saline 1 50ml.bag @ 50 mls/hr IVPB DAILY [facility] Rx#:[id number] LR 2200 800 Piperacillin-Tazobactam 3 100 200 100 .375 gm In Sodium Chloride 0.9% 100 ml @ 25 mls/hr IVPB Q8H [facility] Rx#: [id number] Sodium Chloride 0.9% 1, 1600 800 000 ml @ 100 mls/hr IV . Q10H [facility] Rx#:[id number] Sodium Chloride 0.9% 2, 2000 2000 000 ml @ 999 mls/hr IV . Q2H1M [facility] Rx#:[id number] metroNIDAZOLE-NS PMX 500 100 100 100 mg In Saline 1 100ml.bag @ 100 mls/hr IVPB Q8HR [facility] Rx#:[id number] Intake, IV Titration 312.419 291.808 100 Amount Norepinephrine 8 mg In 56.666 0 Sodium Chloride 0.9% 250 ml @ 0.05 MCG/KG/MIN 9. 259 mls/hr IV .Q24H [facility] Rx#:[id number] Propofol 1,000 mg In 255.753 291.808 100 Empty Bag 1 bag @ Titrate IV .Q0M [facility] Rx#: [id number] Blood Product 310 Rc As-1 Unit 310 [id number] Output: Drainage 60 120 180 Right Lower Abdomen 60 120 180 Urine 157 338 250 Other: Voiding Method Indwelling Catheter Indwelling Catheter ABP, PAP, CO, CI - Last Documented Arterial Blood Pressure 133/40 - Exam PHYSICAL EXAMINATION: patient is currently sedated and on mechanical ventilator... HEENT: Normocephalic. Neck is supple. Pupils reactive. Nostrils clear. Oral cavity is moist. Ears reveal no drainage. Neck reveals no JVD, carotid bruits, or thyromegaly. CHEST EXAMINATION: Trachea is central. Symmetrical expansion. bibasilar diminished air entry. No wheezing.. CARDIAC: Normal S1, S2 with no gallops. No murmurs ABDOMEN: Soft. Bowel sounds diminished. Surgical wound is intact and clean.. No organomegaly. No abdominal bruits. Extremities: reveal no edema. No clubbing or cyanosis Neurologically patient is currently sedated and on mechanical ventilator.. Nocross focal deficits noted Skin: No rash or skin lesions. Psychiatric: could not be assessed at this time. Musculoskeletal: No joint swelling or deformity. - Labs CBC & Chem 7: 11/03/19 19:15 11/03/19 04:15 Labs: Abnormal Lab Results - Last 24 Hours (Table) 11/01/19 11/02/19 11/03/19 Range/Units 13:35 23:31 04:15 RBC (4.30-5.90) m/uL Hgb (13.0-17.5) gm/dL Hct (39.0-53.0) % RDW (11.5-15.5) % Neutrophils # (1.3-7.7) k/uL Lymphocytes # (1.0-4.8) k/uL ABG pO2 (83-108) mmHg ABG HCO3 (21-25) mmol/L ABG O2 Saturation (94-97) % Chloride 116 H (98-107) mmol/L Carbon Dioxide 19 L (22-30) mmol/L BUN 43 H (9-20) mg/dL Creatinine 3.13 H (0.66-1.25) mg/dL Glucose 181 H (74-99) mg/dL POC Glucose (mg/dL) 182 H (75-99) mg/dL Calcium 7.3 L (8.4-10.2) mg/dL Phosphorus (2.5-4.5) mg/dL Crossmatch See Detail 11/03/19 11/03/19 11/03/19 Range/Units 04:15 04:53 05:10 RBC 2.30 L (4.30-5.90) m/uL Hgb 7.1 L D (13.0-17.5) gm/dL Hct 20.8 L (39.0-53.0) % RDW 16.1 H (11.5-15.5) % Neutrophils # 8.0 H (1.3-7.7) k/uL Lymphocytes # 0.5 L (1.0-4.8) k/uL ABG pO2 118 H (83-108) mmHg ABG HCO3 20 L (21-25) mmol/L ABG O2 Saturation 98.6 H (94-97) % Chloride (98-107) mmol/L Carbon Dioxide (22-30) mmol/L BUN (9-20) mg/dL Creatinine (0.66-1.25) mg/dL Glucose (74-99) mg/dL POC Glucose (mg/dL) (75-99) mg/dL Calcium (8.4-10.2) mg/dL Phosphorus 4.8 H (2.5-4.5) mg/dL Crossmatch 11/03/19 11/03/19 11/03/19 Range/Units 05:34 11:48 12:17 RBC (4.30-5.90) m/uL Hgb (13.0-17.5) gm/dL Hct (39.0-53.0) % RDW (11.5-15.5) % Neutrophils # (1.3-7.7) k/uL Lymphocytes # (1.0-4.8) k/uL ABG pO2 (83-108) mmHg ABG HCO3 (21-25) mmol/L ABG O2 Saturation (94-97) % Chloride (98-107) mmol/L Carbon Dioxide (22-30) mmol/L BUN (9-20) mg/dL Creatinine (0.66-1.25) mg/dL Glucose (74-99) mg/dL POC Glucose (mg/dL) 211 H 222 H 237 H (75-99) mg/dL Calcium (8.4-10.2) mg/dL Phosphorus (2.5-4.5) mg/dL Crossmatch 11/03/19 11/03/19 Range/Units 12: 17:44 RBC 2.12 L (4.30-5.90) m/uL Hgb 6.5 L* (13.0-17.5) gm/dL Hct 19.3 L* (39.0-53.0) % RDW 16.1 H (11.5-15.5) % Neutrophils # 8.1 H (1.3-7.7) k/uL Lymphocytes # 0.5 L (1.0-4.8) k/uL ABG pO2 (83-108) mmHg ABG HCO3 (21-25) mmol/L ABG O2 Saturation (94-97) % Chloride (98-107) mmol/L Carbon Dioxide (22-30) mmol/L BUN (9-20) mg/dL Creatinine (0.66-1.25) mg/dL Glucose (74-99) mg/dL POC Glucose (mg/dL) 260 H (75-99) mg/dL Calcium (8.4-10.2) mg/dL Phosphorus (2.5-4.5) mg/dL Crossmatch Microbiology - Last 24 Hours (Table) 11/02/19 01:15 Gram Stain - Preliminary Sputum Sputum Culture - Preliminary Yeast species Assessment and Plan Assessment: Acute blood loss anemia secondary to duodenal ulcer. Status post exploratory laparotomy and oversewing of duodenal ulcer on 11 01 2019 - Patient is status post EGD/colonoscopy which revealed duodenal ulcer without any active bleeding with the large interior clot in the second portion of duodenum; colonoscopy revealed ischemic colitis and left colon. Patient is presently on Protonix IV twice a day -cute hypoxic respiratory failure with bilateral pleural effusion and atelectasis. Currently on mechanical ventilator. -coronary artery disease continue with metoprolol hold off rest of the blood pressure medications and aspirin because of GI bleed -Hypertension patient is presently hypotensive secondary to GI bleed holding off on lisinopril, hydralazine. -Renal failure: I do not have any previous creatinine available patient denied any history of chronic kidney disease, patient may have acute renal failure from prerenal azotemia from acute GI bleed. 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 -Continued nicotine use: Counseling was provided for above-mentioned chronic medical problems patient will be resumed on appropriate home medications. -DVT prophylaxis with SCDs due to GI leed plan: patient will be continued on IV hydration and wean offLevophed. on mechanical ventilator. Continue with empiric antibiotics in the form of Zosyn and Flagyl.monitor H&H andblood transfusion as needed. continue with IV Protonix. pulmonary and General surgery is following.prognosis is guarded at this time. Time with Patient: Greater than 30
[2019-11-03 23:41] LABS: Glucose,Whole Blood 311 mg/dL (75-99)
[2019-11-04 00:02] LABS: Glucose,Whole Blood 300 mg/dL (75-99)
[2019-11-04] MEDS: HYDROmorphone 0.5 MG/0.5 ML SYRINGE IVP PRN (00:30)
[2019-11-04] MEDS: PROPOFOL 1,000 MG in EMPTY BAG 1 BAG IV SCH ×7 (04:17→23:56)
[2019-11-04] MEDS: PIPERACILLIN-TAZOBACTAM 3.375 GM in SODIUM CHLORIDE 0.9% 100 ML IVPB SCH ×3 (04:19→21:16)
[2019-11-04 04:37] LABS: ABG Base Excess -7.3 mmol/L; ABG HCO3 19 mmol/L (21-25); ABG Oxygen Saturation 95.1 % (94-97); ABG PCO2 36 mmHg (35-45); ABG PH 7.33 (7.35-7.45); ABG PO2 75 mmHg (83-108); ABG TCO2 20 mmol/L (19-24); Allen Test Performed? Yes
[2019-11-04 05:09] LABS: Anisocytosis Slight; Basophils % (A) 0 %; Eosinophils % (A) 0 %; HCT 23.6 % (39.0-53.0); HGB 7.9 gm/dL (13.0-17.5); Lymphocytes # (A) 0.4 k/uL (1.0-4.8); Lymphocytes % (A) 5 %; MCH 30.4 pg (25.0-35.0); MCHC 33.5 g/dL (31.0-37.0); MCV 90.7 fL (80.0-100.0); Mean Platelet Volume 9.1; Monocytes # (A) 0.2 k/uL (0-1.0); Monocytes % (A) 3 %; Neutrophils # (A) 7.8 k/uL (1.3-7.7); Neutrophils % (A) 91 %; Platelet Count 216 k/uL (150-450); Poikilocytosis Slight; RBC 2.61 m/uL (4.30-5.90); RDW 16.1 % (11.5-15.5); WBC 8.6 k/uL (3.8-10.6)
[2019-11-04 05:13] LABS: Ionized Calcium 4.8 mg/dL (4.5-5.3)
[2019-11-04 05:22] LABS: Calcium 7.1 mg/dL (8.4-10.2); Magnesium 1.9 mg/dL (1.6-2.3); Potassium 4.6 mmol/L (3.5-5.1)
[2019-11-04] MEDS: LEVOTHYROXINE 125 MCG TAB PO SCH (06:09)
[2019-11-04] MEDS: SODIUM CHLORIDE 0.9% 1,000 ML IV SCH ×2 (06:09→19:54)
[2019-11-04] MEDS: INSULIN ASPART (NovoLOG) 100 UNIT/ML VIAL SQ SCH ×5 (06:11→19:08)
[2019-11-04 06:12] LABS: Glucose,Whole Blood 314 mg/dL (75-99)
[2019-11-04] MEDS: BUDESONIDE 1 MG/2 ML NEBU INHALATION SCH ×2 (08:01→21:15)
[2019-11-04] MEDS: FORMOTEROL FUMARATE 20 MCG/2 ML NEBU INHALATION SCH ×2 (08:01→21:15)
[2019-11-04] MEDS: IPRATROPIUM-ALBUTEROL 3 ML NEB INHALATION SCH ×4 (08:01→21:15)
--- NOTE | 2019-11-04 08:56 | XR ---
EXAMINATION TYPE: XR chest 1V DATE OF EXAM: 11/04/2019 COMPARISON: 11/03/2019 INDICATION: Mechanical ventilation difficulty breathing TECHNIQUE: Single frontal view of the chest is obtained. FINDINGS: The heart size is normal. The pulmonary vasculature is normal. There is opacity at the right lung base which may be related to atelectasis, pneumonia, and/or pleura l fluid. Mild retrocardiac infiltrate is not excluded. Findings are developing from comparison. An endotracheal tube is present with the tip above the lois. Nasogastric tube transverses the thora x with tip in left upper quadrant of the abdomen. Right central venous catheter is present with the t ip in the proximal right atrium. IMPRESSION: 1. Lines and catheters discussed above. 2. Developing opacity in the lateral right lung base. Correlate for atelectasis and pneumonia and/or effusion
[2019-11-04] MEDS ORDERED: FUROSEMIDE 10 MG/ML 4 ML VIAL IV STA (09:05)
--- NOTE | 2019-11-04 09:08 | P.PN ---
Subjective Progress Note Date: 11/04/19 On 11/02/2019 I'm seeing this patient in follow-up after the he came back from the operating room for GI bleeding. The patient has been hospital for upper GI bleed. The patient had a duodenal ulcer. He was bleeding actively and has required a total of 8 units of packed RBC and 1 unit of fresh frozen plasma and this was given to him preoperatively. Patient was taken to the operating room and he had expiratory laparotomy and he had oversewing of a duodenal ulcer. Postop the patient was extubated in the operating room. He was unable to breathe, and he desaturated and he had to be reintubated. This morning the patient continues to be intubated on a mechanical ventilator. Is on propofol which is running at 50 g per KG per minute. He remains on assist control mode of ventilation at the rate of 24 with an FiO2 of 75% and a PEEP of 5 and a tidal volume of 450. The blood gas showed a pH of 7.36 with a pCO2 of 39 and pO2 109. Chest x-ray showing bilateral pleural effusions most on the right in addition to atelectatic changes in the right lung base. He is intubated by #8 orotracheal tube. No further bouts of bleeding. BP is 105/33 through his [facility]. He is receiving IV fluids at the rate of 200 disease an hour and is on levo fed at the rate of 0.03 g per KG per minute. Urine output is in order of 15-20 mL an hour over the past 2 hours. The patient has a right IJ triple-lumen catheter. Cardiac rhythm is sinus. No significant tachycardia. Abdominal wound is clear. There is a IVELISSE drain in his right lower quadrant area. His current hemoglobin is at 8.8. intubated on mechanical ventilator. ] On today's evaluation of 11/03/2019, the patient is being seen in follow-up in his postop day #2 following a expiratory laparotomy, oversewing of a duodenal ulcer and control of the bleeding. Noted the patient was hemodynamically unstable and he has required a total of 8 units of packed RBC transfusion preoperatively. For now is postop day #2. Hemodynamically he is still a bit shaky. He still having lower urine output in the order of 20 mL an hour. Earlier this morning he developed a bout of hypotension, briefly placed on pressors and he subsequently improved. He is 7 kg positive in terms of his fluid balance and weight. He does have some increased edema lower extremity and the scrotum. Currently is on 200 mL an hour of normal saline. His CVP is at 5. His hemoglobin has dropped down to 7.1. No signs of any bleeding. He remains nothing by mouth. NG tube is in place. Output from the NG is in the order of minimal and output from the IVELISSE drain is in order of 1 8 mL over the past 24 hours. Abdomen is nondistended. He is afebrile. He remains on a mechanical ventilator. He is on assist control mode at the rate of 24 with a tidal volume of 450 and FiO2 was dropped down to 50% from a baseline of 60% and his PEEP is currently is at 8. He had a chest x-ray that showed improvement and atelectatic changes in lung bases and there is some small pleural effusion. No other medical issues otherwise. He is afebrile. He is nothing by mouth. No tachyc ardia. The rhythm is sinus. the wound site is dry clean and intact. On 11/04/2019 I'm seeing the patient for a follow-up. Patient is postop day #3 following laparotomy oversewing of a duodenal ulcer and control of a GI bleed. His postop day #3. He is sedated this morning with propofol which is running at 65 g per KG per minute. The patient is easily arousable. He'll be given a sedation holiday. He was dynamically, is doing well. Urine output is improved. He is on IV fluids at a rate of 100 mL an hour normal saline. He is also receiving TPN at the rate of 30 mL an hour. His propofol is running at 65 g and his triglyceride level is at 388. The patient is afebrile. His hemoglobin is stable at 7.9. No further episodes of GI bleed. NG tube is in place and output in the order of 100 mL overnight. IVELISSE drain is draining minimal amount in the order of 50 mL over the past 8 hours. He remains on assist control mode at the rate of 24 with a volume of 450 and FiO2 of 50% and a PEEP of 5. His blood gases from today showed a pH of 7.33 with a pCO2 of 36 and pO2 of 75. Chest x-r ay showed bilateral pleural effusions worse on the right. ET tube is in a good location. Clinically, the patient is in fluid overload and he has developed increased edema in his scrotum and his lower extremities. He was started on TPN for nutritional support yesterday and IV fluids have been cut down. Ultrasound the kidneys was done and there is no evidence of any hydronephrosis. Creatinine is at 2.8 is improved compared to yesterday. He does have a component of non- anion gap metabolic acidosis with a serum bicarbonate being advanced 17 and anion gap is at 7 for now. Objective - Vital Signs Vital signs: Vital Signs Temp 97.3 F L 11/04/19 04:00 Pulse 50 L 11/04/19 08:22 Resp 24 11/04/19 07:00 BP 128/64 11/04/19 07:00 Pulse Ox 94 L 11/04/19 07:00 Intake & Output 11/03/19 11/04/19 11/04/19 18:59 06:59 18:59 Intake Total 4060 2101.042 130 Output Total 610 1220 165 Balance 3450 881.042 -35 Weight 106 kg 110 kg Intake: IV 3550 1830 130 Fluconazole in NaCl,Iso- 50 Osm 100 mg In Saline 1 50ml.bag @ 50 mls/hr IVPB DAILY [facility] Rx#:[id number] Mvi, Adult No.4 with Vit 330 30 K 10 ml Trace (Conc-1Ml/ Dose) 1 ml Sodium Acetate 30 meq Magnesium Sulfate gm 1 gm Calcium Gluconate 1 gm In Amino Acid 5%-D15w 1,000 ml @ 30 mls/hr IV .Q24H [facility] Rx #:[id number] Piperacillin-Tazobactam 3 100 200 .375 gm In Sodium Chloride 0.9% 100 ml @ 25 mls/hr IVPB Q8H [facility] Rx#: [id number] Sodium Chloride 0.9% 1, 1200 1200 100 000 ml @ 100 mls/hr IV . Q10H [facility] Rx#:[id number] Sodium Chloride 0.9% 2, 2000 000 ml @ 999 mls/hr IV . Q2H1M [facility] Rx#:[id number] metroNIDAZOLE-NS PMX 500 200 100 mg In Saline 1 100ml.bag @ 100 mls/hr IVPB Q8HR [facility] Rx#:[id number] Intake, IV Titration 200 271.042 Amount Norepinephrine 8 mg In 0 Sodium Chloride 0.9% 250 ml @ 0.05 MCG/KG/MIN 9. 259 mls/hr IV .Q24H [facility] Rx#:[id number] Propofol 1,000 mg In 200 271.042 Empty Bag 1 bag @ Titrate IV .Q0M [facility] Rx#: [id number] Blood Product 310 Rc As-1 Unit 310 [id number] Output: Gastric Drainage 350 50 Drainage 180 170 40 Right Lower Abdomen 180 170 40 Urine 430 700 75 Other: Voiding Method Indwelling Catheter Indwelling Catheter ABP, PAP, CO, CI - Last Documented Arterial Blood Pressure 131/44 - Exam Gen. appearance, comfortable sedated and intubated on a mechanical ventilator has an orotracheal an NG tube in place. Head exam was generally normal. There was no scleral icterus or corneal arcus. Mucous membranes were moist. Neck was supple and without jugular venous distension, thyromegaly, or carotid bruits. Carotids were easily palpable bilaterally. There was no adenopathy. Lungs were clear to auscultation and percussion, and with normal diaphragmatic excursion. No wheezes or rales were noted. Breath sounds are diminished in lung bases bilaterally. Cardiac exam revealed the PMI to be normally situated and sized. The rhythm was regular and no extrasystoles were noted during several minutes of auscultation. The first and second heart sounds were normal and physiologic splitting of the second heart sound was noted. There were no murmurs, rubs, clicks, or gallops. Abdomen is soft and the patient has a mid abdominal incision with a IVELISSE drain in the right lower quadrant. Bowel sounds are hypoactive. Neck tenderness. No rebound tenderness. No guarding. Examination of the extremities revealed easily palpable radial, femoral and peda l pulses. There was no cyanosis, clubbing or edema. Examination of the skin revealed no evidence of significant rashes, suspicious appearing nevi or other concerning lesions. Neurologically sedated, comfortable - Labs CBC & Chem 7: 11/04/19 05:00 11/04/19 05:00 Labs: Abnormal Lab Results - Last 24 Hours (Table) 11/01/19 11/03/19 11/03/19 Range/Units 13:35 04:15 11:48 RBC (4.30-5.90) m/uL Hgb (13.0-17.5) gm/dL Hct (39.0-53.0) % RDW (11.5-15.5) % Neutrophils # (1.3-7.7) k/uL Lymphocytes # (1.0-4.8) k/uL ABG pH (7.35-7.45) ABG pO2 (83-108) mmHg ABG HCO3 (21-25) mmol/L Chloride (98-107) mmol/L Carbon Dioxide (22-30) mmol/L BUN (9-20) mg/dL Creatinine (0.66-1.25) mg/dL Glucose (74-99) mg/dL POC Glucose (mg/dL) 222 H (75-99) mg/dL Calcium (8.4-10.2) mg/dL Phosphorus 4.8 H (2.5-4.5) mg/dL Triglycerides (<150) mg/dL Crossmatch See Detail 11/03/19 11/03/19 11/03/19 Range/Units : 12: 17:44 RBC 2.12 L (4.30-5.90) m/uL Hgb 6.5 L* (13.0-17.5) gm/dL Hct 19.3 L* (39.0-53.0) % RDW 16.1 H (11.5-15.5) % Neutrophils # 8.1 H (1.3-7.7) k/uL Lymphocytes # 0.5 L (1.0-4.8) k/uL ABG pH (7.35-7.45) ABG pO2 (83-108) mmHg ABG HCO3 (21-25) mmol/L Chloride (98-107) mmol/L Carbon Dioxide (22-30) mmol/L BUN (9-20) mg/dL Creatinine (0.66-1.25) mg/dL Glucose (74-99) mg/dL POC Glucose (mg/dL) 237 H 260 H (75-99) mg/dL Calcium (8.4-10.2) mg/dL Phosphorus (2.5-4.5) mg/dL Triglycerides (<150) mg/dL Crossmatch 11/03/19 11/03/19 11/03/19 Range/Units 19:15 23:29 23:51 RBC 2.63 L (4.30-5.90) m/uL Hgb 7.9 L (13.0-17.5) gm/dL Hct 24.0 L (39.0-53.0) % RDW 15.8 H (11.5-15.5) % Neutrophils # 9.2 H (1.3-7.7) k/uL Lymphocytes # 0.5 L (1.0-4.8) k/uL ABG pH (7.35-7.45) ABG pO2 (83-108) mmHg ABG HCO3 (21-25) mmol/L Chloride (98-107) mmol/L Carbon Dioxide (22-30) mmol/L BUN (9-20) mg/dL Creatinine (0.66-1.25) mg/dL Glucose (74-99) mg/dL POC Glucose (mg/dL) 311 H 300 H (75-99) mg/dL Calcium (8.4-10.2) mg/dL Phosphorus (2.5-4.5) mg/dL Triglycerides (<150) mg/dL Crossmatch 11/04/19 11/04/19 11/04/19 Range/Units 04:32 05:00 05:00 RBC 2.61 L (4.30-5.90) m/uL Hgb 7.9 L (13.0-17.5) gm/dL Hct 23.6 L (39.0-53.0) % RDW 16.1 H (11.5-15.5) % Neutrophils # 7.8 H (1.3-7.7) k/uL Lymphocytes # 0.4 L (1.0-4.8) k/uL ABG pH 7.33 L (7.35-7.45) ABG pO2 75 L (83-108) mmHg ABG HCO3 19 L (21-25) mmol/L Chloride 118 H (98-107) mmol/L Carbon Dioxide 17 L (22-30) mmol/L BUN 43 H (9-20) mg/dL Creatinine 2.80 H (0.66-1.25) mg/dL Glucose 279 H (74-99) mg/dL POC Glucose (mg/dL) (75-99) mg/dL Calcium 7.1 L (8.4-10.2) mg/dL Phosphorus 5.0 H (2.5-4.5) mg/dL Triglycerides 368 H (<150) mg/dL Crossmatch 11/04/19 Range/Units 06:00 RBC (4.30-5.90) m/uL Hgb (13.0-17.5) gm/dL Hct (39.0-53.0) % RDW (11.5-15.5) % Neutrophils # (1.3-7.7) k/uL Lymphocytes # (1.0-4.8) k/uL ABG pH (7.35-7.45) ABG pO2 (83-108) mmHg ABG HCO3 (21-25) mmol/L Chloride (98-107) mmol/L Carbon Dioxide (22-30) mmol/L BUN (9-20) mg/dL Creatinine (0.66-1.25) mg/dL Glucose (74-99) mg/dL POC Glucose (mg/dL) 314 H (75-99) mg/dL Calcium (8.4-10.2) mg/dL Phosphorus (2.5-4.5) mg/dL Triglycerides (<150) mg/dL Crossmatch Microbiology - Last 24 Hours (Table) 11/02/19 01:15 Gram Stain - Preliminary Sputum Sputum Culture - Preliminary Yeast species Assessment and Plan Plan: 1 acute upper GI bleed secondary to duodenal ulcer. The patient underwent exploratory laparotomy and oversewing of duodenal ulcer on today's postop day #3 2 blood loss anemia secondary to GI bleed, the hemoglobin is at 7.9 and the patient received a unit of packed RBC yesterday. 3 acute hypoxic respiratory failure with development of bilateral pleural effus ion and atelectatic changes in lung bases, currently intubated on a mechanical ventilator. PEEP is down to 5 with an FiO2 of 50% and the patient has bilateral pleural effusion related to aggressive fluid resuscitation on today's chest x- ray. 4 chronic kidney disease with ascending of the creatinine down to 2.8, the Cohen catheter in place and the ultrasound the kidneys shows no evidence of any hydronephrosis. 5 obstructive sleep apnea maintained on CPAP on outpatient basis 6 hyperlipidemia 7 hypothyroidism 8 hypertension history of 9 diabetes mellitus 10 osteoarthritis 11 NPO status and the patient's blood sugars slightly elevated in the range of 300 on TPN 12 Hypertriglyceridemia Plan IV fluids to KVO and start Lasix 40 mg IV push for now and decide on further dosing based on his overall response and blood pressure monitor hemoglobin, no transfusion as long as the hemoglobin is above 7 monitor renal function and proceed with an ultrasound of the kidneys showing no evidence of any hydronephrosis Monitor CVP TPN for nutritional support Discontinue the IV Solu-Medrol and monitor the blood sugar. If the blood sugar remains elevated, we'll use a insulin drip for blood sugar control. Echo showed a normal left ventricular ejection fraction without any significant valvular abnormalities IV Protonix IV propofol with a sedation holiday Continue IV Zosyn and Flagyl and Diflucan as empiric antibiotic coverage IV levothyroxine 75 g SCD to lower extremities for DT prophylaxis No weaning trials for today. Not absolutely ready for weaning. He has Bilateral pleural effusion General surgeries on the case. We'll continue to follow and make further recommendations based on his progress. Critically care evaluation, 35 minutes.
[2019-11-04] MEDS: methylPREDNISolone SOD SUCCI 40 MG/ML 1 ML VIAL IV SCH (09:09)
[2019-11-04] MEDS: metroNIDAZOLE-NS PMX 500 MG in SALINE 1 100ML.BAG IVPB SCH ×3 (09:10→23:56)
[2019-11-04] MEDS: NICOTINE 14MG/24HR PATCH TRANSDERM SCH (09:16)
[2019-11-04] MEDS: LEVOTHYROXINE IVP 100 MCG/5 ML VIAL IV SCH (09:18)
[2019-11-04] MEDS: CHLORHEXIDINE GLUCONATE 15 ML CUP MUCOUS MEM SCH ×2 (09:18→21:20)
[2019-11-04] MEDS: LIDOCAINE 5% PATCH TOPICAL SCH (09:20)
[2019-11-04] MEDS: LINAGLIPTIN 5 MG TABLET PO SCH (09:21)
[2019-11-04] MEDS: LIOTHYRONINE SODIUM 5 MCG TAB PO SCH (09:21)
[2019-11-04] MEDS: PANTOPRAZOLE 40 MG/10 ML VIAL IV SCH ×2 (09:21→21:20)
[2019-11-04] MEDS: METOPROLOL TARTRATE 50 MG TAB PO SCH ×2 (09:21→21:20)
[2019-11-04] MEDS: PREGABALIN 50 MG CAP PO SCH ×2 (09:21→21:21)
[2019-11-04] MEDS: HYDROmorphone 1 MG/ML 1 ML SYRINGE IVP PRN (09:59)
--- NOTE | 2019-11-04 10:16 | P.PN ---
<VanegasAndie Bridgette - Last Filed: 11/04/19 10:12> Subjective Progress Note Date: 11/04/19 CHIEF COMPLAINT: Bleeding duodenal ulcer HISTORY OF PRESENT ILLNESS: 78-year-old male who is status post exploratory laparotomy with duodenotomy and oversewing of bleeding duodenal ulcer. Postop day #3. No family at the bedside. Patient remains intubated in the intensive care unit. FiO2 has been decreased to 50%. He remains on continuous sedation. IVELISSE drain with minimal serosanguineous output. NG without bloody drainage. No rectal bleeding. Patient received RBC transfusion yesterday. Repeat hemoglobin this morning 7.9. PHYSICAL EXAM: VITAL SIGNS: Reviewed. GENERAL: Well-developed in no acute distress-on continuous sedation. HEENT: No sclera icterus. Extraocular movements grossly intact. Moist buccal mucosa. Head is atraumatic, normocephalic. ABDOMEN: Soft. Nondistended. Surgical dressing clean dry intact. NG to LIS. IVELISSE drain with small amount of serosanguineous drainage NEUROLOGIC: sedated on mechanical ventilation ASSESSMENT: 1. Bleeding duodenal ulcer, status post exploratory laparotomy with duodenotomy and oversewing of bleeding duodenal ulcer 2. Acute blood loss anemia PLAN: -Continue ICU/ventilator management per Dr. Pederson -Continue to monitor hemoglobin -Continue TPN -Continue NG to LIS -Continue abdominal dressing changes with nuno rodriguez Nurse practitioner note has been reviewed by physician. Signing provider agrees with the documented findings, assessment, and plan of care. Objective - Vital Signs Vital signs: Vital Signs Temp 97.3 F L 11/04/19 04:00 Pulse 50 L 11/04/19 08:22 Resp 24 11/04/19 07:00 BP 128/64 11/04/19 07:00 Pulse Ox 94 L 11/04/19 07:00 Intake & Output 11/03/19 11/04/19 11/04/19 18:59 06:59 18:59 Intake Total 4060 2101.042 230 Output Total 610 1220 165 Balance 3450 881.042 65 Weight 106 kg 110 kg Intake: IV 3550 1830 130 Fluconazole in NaCl,Iso- 50 Osm 100 mg In Saline 1 50ml.bag @ 50 mls/hr IVPB DAILY [facility] Rx#:[id number] Mvi, Adult No.4 with Vit 330 30 K 10 ml Trace (Conc-1Ml/ Dose) 1 ml Sodium Acetate 30 meq Magnesium Sulfate gm 1 gm Calcium Gluconate 1 gm In Amino Acid 5%-D15w 1,000 ml @ 30 mls/hr IV .Q24H [facility] Rx #:[id number] Piperacillin-Tazobactam 3 100 200 .375 gm In Sodium Chloride 0.9% 100 ml @ 25 mls/hr IVPB Q8H [facility] Rx#: [id number] Sodium Chloride 0.9% 1, 1200 1200 100 000 ml @ 100 mls/hr IV . Q10H [facility] Rx#:[id number] Sodium Chloride 0.9% 2, 2000 000 ml @ 999 mls/hr IV . Q2H1M [facility] Rx#:[id number] metroNIDAZOLE-NS PMX 500 200 100 mg In Saline 1 100ml.bag @ 100 mls/hr IVPB Q8HR [facility] Rx#:[id number] Intake, IV Titration 200 271.042 100 Amount Norepinephrine 8 mg In 0 Sodium Chloride 0.9% 250 ml @ 0.05 MCG/KG/MIN 9. 259 mls/hr IV .Q24H [facility] Rx#:[id number] Propofol 1,000 mg In 200 271.042 100 Empty Bag 1 bag @ Titrate IV .Q0M [facility] Rx#: [id number] Blood Product 310 Rc As-1 Unit 310 [id number] Output: Gastric Drainage 350 50 Drainage 180 170 40 Right Lower Abdomen 180 170 40 Urine 430 700 75 Other: Voiding Method Indwelling Catheter Indwelling Catheter ABP, PAP, CO, CI - Last Documented Arterial Blood Pressure 131/44 - Labs CBC & Chem 7: 11/04/19 05:00 11/04/19 05:00 Labs: Abnormal Lab Results - Last 24 Hours (Table) 11/01/19 11/03/19 11/03/19 Range/Units 13:35 04:15 11:48 RBC (4.30-5.90) m/uL Hgb (13.0-17.5) gm/dL Hct (39.0-53.0) % RDW (11.5-15.5) % Neutrophils # (1.3-7.7) k/uL Lymphocytes # (1.0-4.8) k/uL ABG pH (7.35-7.45) ABG pO2 (83-108) mmHg ABG HCO3 (21-25) mmol/L Chloride (98-107) mmol/L Carbon Dioxide (22-30) mmol/L BUN (9-20) mg/dL Creatinine (0.66-1.25) mg/dL Glucose (74-99) mg/dL POC Glucose (mg/dL) 222 H (75-99) mg/dL Calcium (8.4-10.2) mg/dL Phosphorus 4.8 H (2.5-4.5) mg/dL Triglycerides (<150) mg/dL Crossmatch See Detail 11/03/19 11/03/19 11/03/19 Range/Units :03 11: 17:44 RBC 2.12 L (4.30-5.90) m/uL Hgb 6.5 L* (13.0-17.5) gm/dL Hct 19.3 L* (39.0-53.0) % RDW 16.1 H (11.5-15.5) % Neutrophils # 8.1 H (1.3-7.7) k/uL Lymphocytes # 0.5 L (1.0-4.8) k/uL ABG pH (7.35-7.45) ABG pO2 (83-108) mmHg ABG HCO3 (21-25) mmol/L Chloride (98-107) mmol/L Carbon Dioxide (22-30) mmol/L BUN (9-20) mg/dL Creatinine (0.66-1.25) mg/dL Glucose (74-99) mg/dL POC Glucose (mg/dL) 237 H 260 H (75-99) mg/dL Calcium (8.4-10.2) mg/dL Phosphorus (2.5-4.5) mg/dL Triglycerides (<150) mg/dL Crossmatch 11/03/19 11/03/19 11/03/19 Range/Units 19:15 23:29 23:51 RBC 2.63 L (4.30-5.90) m/uL Hgb 7.9 L (13.0-17.5) gm/dL Hct 24.0 L (39.0-53.0) % RDW 15.8 H (11.5-15.5) % Neutrophils # 9.2 H (1.3-7.7) k/uL Lymphocytes # 0.5 L (1.0-4.8) k/uL ABG pH (7.35-7.45) ABG pO2 (83-108) mmHg ABG HCO3 (21-25) mmol/L Chloride (98-107) mmol/L Carbon Dioxide (22-30) mmol/L BUN (9-20) mg/dL Creatinine (0.66-1.25) mg/dL Glucose (74-99) mg/dL POC Glucose (mg/dL) 311 H 300 H (75-99) mg/dL Calcium (8.4-10.2) mg/dL Phosphorus (2.5-4.5) mg/dL Triglycerides (<150) mg/dL Crossmatch 11/04/19 11/04/19 11/04/19 Range/Units 04:32 05:00 05:00 RBC 2.61 L (4.30-5.90) m/uL Hgb 7.9 L (13.0-17.5) gm/dL Hct 23.6 L (39.0-53.0) % RDW 16.1 H (11.5-15.5) % Neutrophils # 7.8 H (1.3-7.7) k/uL Lymphocytes # 0.4 L (1.0-4.8) k/uL ABG pH 7.33 L (7.35-7.45) ABG pO2 75 L (83-108) mmHg ABG HCO3 19 L (21-25) mmol/L Chloride 118 H (98-107) mmol/L Carbon Dioxide 17 L (22-30) mmol/L BUN 43 H (9-20) mg/dL Creatinine 2.80 H (0.66-1.25) mg/dL Glucose 279 H (74-99) mg/dL POC Glucose (mg/dL) (75-99) mg/dL Calcium 7.1 L (8.4-10.2) mg/dL Phosphorus 5.0 H (2.5-4.5) mg/dL Triglycerides 368 H (<150) mg/dL Crossmatch 11/04/19 Range/Units 06:00 RBC (4.30-5.90) m/uL Hgb (13.0-17.5) gm/dL Hct (39.0-53.0) % RDW (11.5-15.5) % Neutrophils # (1.3-7.7) k/uL Lymphocytes # (1.0-4.8) k/uL ABG pH (7.35-7.45) ABG pO2 (83-108) mmHg ABG HCO3 (21-25) mmol/L Chloride (98-107) mmol/L Carbon Dioxide (22-30) mmol/L BUN (9-20) mg/dL Creatinine (0.66-1.25) mg/dL Glucose (74-99) mg/dL POC Glucose (mg/dL) 314 H (75-99) mg/dL Calcium (8.4-10.2) mg/dL Phosphorus (2.5-4.5) mg/dL Triglycerides (<150) mg/dL Crossmatch Microbiology - Last 24 Hours (Table) 11/02/19 01:15 Gram Stain - Preliminary Sputum Sputum Culture - Preliminary Yeast species <Jose Gifford - Last Filed: 11/04/19 17:39> Subjective As above. Patient seen earlier this morning. Be gradually improving. Nasogastric tube remains bilious. Hemoglobin is stable now. Continue ventilatory weaning. Continue wound care. Antibiotics for now. Agree with TPN. Objective - Vital Signs Vital signs: Vital Signs Temp 97.3 F L 11/04/19 04:00 Pulse 55 L 11/04/19 16:28 Resp 24 11/04/19 07:00 BP 128/64 11/04/19 07:00 Pulse Ox 94 L 11/04/19 07:00 Intake & Output 11/03/19 11/04/19 11/04/19 18:59 06:59 18:59 Intake Total 4060 2101.042 571.312 Output Total 610 1220 165 Balance 3450 881.042 406.312 Weight 106 kg 110 kg Intake: IV 3550 1830 130 Fluconazole in NaCl,Iso- 50 Osm 100 mg In Saline 1 50ml.bag @ 50 mls/hr IVPB DAILY [facility] Rx#:[id number] Mvi, Adult No.4 with Vit 330 30 K 10 ml Trace (Conc-1Ml/ Dose) 1 ml Sodium Acetate 30 meq Magnesium Sulfate gm 1 gm Calcium Gluconate 1 gm In Amino Acid 5%-D15w 1,000 ml @ 30 mls/hr IV .Q24H [facility] Rx #:[id number] Piperacillin-Tazobactam 3 100 200 .375 gm In Sodium Chloride 0.9% 100 ml @ 25 mls/hr IVPB Q8H [facility] Rx#: [id number] Sodium Chloride 0.9% 1, 1200 1200 100 000 ml @ 100 mls/hr IV . Q10H [facility] Rx#:[id number] Sodium Chloride 0.9% 2, 2000 000 ml @ 999 mls/hr IV . Q2H1M [facility] Rx#:[id number] metroNIDAZOLE-NS PMX 500 200 100 mg In Saline 1 100ml.bag @ 100 mls/hr IVPB Q8HR [facility] Rx#:[id number] Intake, IV Titration 200 271.042 441.312 Amount Norepinephrine 8 mg In 0 258 Sodium Chloride 0.9% 250 ml @ 0.05 MCG/KG/MIN 9. 259 mls/hr IV .Q24H [facility] Rx#:[id number] Propofol 1,000 mg In 200 271.042 183.312 Empty Bag 1 bag @ Titrate IV .Q0M [facility] Rx#: [id number] Blood Product 310 Rc As-1 Unit 310 [id number] Output: Gastric Drainage 350 50 Drainage 180 170 40 Right Lower Abdomen 180 170 40 Urine 430 700 75 Other: Voiding Method Indwelling Catheter Indwelling Catheter Indwelling Catheter ABP, PAP, CO, CI - Last Documented Arterial Blood Pressure 131/44 - Labs CBC & Chem 7: 11/04/19 05:00 11/04/19 05:00 Labs: Abnormal Lab Results - Last 24 Hours (Table) 11/03/19 11/03/19 11/03/19 Range/Units 17:44 19:15 23:29 RBC 2.63 L (4.30-5.90) m/uL Hgb 7.9 L (13.0-17.5) gm/dL Hct 24.0 L (39.0-53.0) % RDW 15.8 H (11.5-15.5) % Neutrophils # 9.2 H (1.3-7.7) k/uL Lymphocytes # 0.5 L (1.0-4.8) k/uL ABG pH (7.35-7.45) ABG pO2 (83-108) mmHg ABG HCO3 (21-25) mmol/L Chloride (98-107) mmol/L Carbon Dioxide (22-30) mmol/L BUN (9-20) mg/dL Creatinine (0.66-1.25) mg/dL Glucose (74-99) mg/dL POC Glucose (mg/dL) 260 H 311 H (75-99) mg/dL Calcium (8.4-10.2) mg/dL Phosphorus (2.5-4.5) mg/dL Triglycerides (<150) mg/dL 11/03/19 11/04/19 11/04/19 Range/Units 23:51 04:32 05:00 RBC 2.61 L (4.30-5.90) m/uL Hgb 7.9 L (13.0-17.5) gm/dL Hct 23.6 L (39.0-53.0) % RDW 16.1 H (11.5-15.5) % Neutrophils # 7.8 H (1.3-7.7) k/uL Lymphocytes # 0.4 L (1.0-4.8) k/uL ABG pH 7.33 L (7.35-7.45) ABG pO2 75 L (83-108) mmHg ABG HCO3 19 L (21-25) mmol/L Chloride (98-107) mmol/L Carbon Dioxide (22-30) mmol/L BUN (9-20) mg/dL Creatinine (0.66-1.25) mg/dL Glucose (74-99) mg/dL POC Glucose (mg/dL) 300 H (75-99) mg/dL Calcium (8.4-10.2) mg/dL Phosphorus (2.5-4.5) mg/dL Triglycerides (<150) mg/dL 11/04/19 11/04/19 11/04/19 Range/Units 05:00 06:00 10:08 RBC (4.30-5.90) m/uL Hgb (13.0-17.5) gm/dL Hct (39.0-53.0) % RDW (11.5-15.5) % Neutrophils # (1.3-7.7) k/uL Lymphocytes # (1.0-4.8) k/uL ABG pH (7.35-7.45) ABG pO2 (83-108) mmHg ABG HCO3 (21-25) mmol/L Chloride 118 H (98-107) mmol/L Carbon Dioxide 17 L (22-30) mmol/L BUN 43 H (9-20) mg/dL Creatinine 2.80 H (0.66-1.25) mg/dL Glucose 279 H (74-99) mg/dL POC Glucose (mg/dL) 314 H 336 H (75-99) mg/dL Calcium 7.1 L (8.4-10.2) mg/dL Phosphorus 5.0 H (2.5-4.5) mg/dL Triglycerides 368 H (<150) mg/dL 11/04/19 11/04/19 Range/Units 11:47 16:42 RBC (4.30-5.90) m/uL Hgb (13.0-17.5) gm/dL Hct (39.0-53.0) % RDW (11.5-15.5) % Neutrophils # (1.3-7.7) k/uL Lymphocytes # (1.0-4.8) k/uL ABG pH (7.35-7.45) ABG pO2 (83-108) mmHg ABG HCO3 (21-25) mmol/L Chloride (98-107) mmol/L Carbon Dioxide (22-30) mmol/L BUN (9-20) mg/dL Creatinine (0.66-1.25) mg/dL Glucose (74-99) mg/dL POC Glucose (mg/dL) 334 H 339 H (75-99) mg/dL Calcium (8.4-10.2) mg/dL Phosphorus (2.5-4.5) mg/dL Triglycerides (<150) mg/dL Microbiology - Last 24 Hours (Table) 11/02/19 01:15 Gram Stain - Final Sputum Sputum Culture - Final Natalie sp,not albicans/galbr Assessment and Plan (1) Bleeding duodenal ulcer Current Visit: Yes Status: Acute Code(s): K26.4 - CHRONIC OR UNSPECIFIED DUODENAL ULCER WITH HEMORRHAGE SNOMED Code(s): 16471863
[2019-11-04 10:22] LABS: Glucose,Whole Blood 336 mg/dL (75-99)
[2019-11-04 11:58] LABS: Glucose,Whole Blood 334 mg/dL (75-99)
[2019-11-04] MEDS: FLUCONAZOLE IN NACL,ISO-OSM 100 MG in SALINE 1 50ML.BAG IVPB SCH (12:15)
[2019-11-04 16:53] LABS: Glucose,Whole Blood 339 mg/dL (75-99)
[2019-11-04] MEDS: FUROSEMIDE 10 MG/ML 4 ML VIAL IV SCH ×2 (17:07→23:57)
[2019-11-04] MEDS: NOREPINEPHRINE 8 MG in SODIUM CHLORIDE 0.9% 250 ML IV SCH (17:12)
[2019-11-04 18:12] LABS: Glucose,Whole Blood 302 mg/dL (75-99)
[2019-11-04 19:12] LABS: Glucose,Whole Blood 300 mg/dL (75-99)
[2019-11-04] MEDS ORDERED: INSULIN REGULAR BOLUS (FROM DRIP BAG) IV PRN (19:30)
[2019-11-04] MEDS: MVI, ADULT NO.4 WITH VIT K 10 ML, TRACE (CONC-1ML/DOSE) 1 ML, SODIUM ACETATE 30 MEQ, MA... IV SCH ×6 (19:47)
[2019-11-04] MEDS ORDERED: INSULIN REGULAR 100 UNIT in SODIUM CHLORIDE 0.9% 100 ML IV SCH (20:00)
[2019-11-04 20:05] LABS: Glucose,Whole Blood 278 mg/dL (75-99)
[2019-11-04] MEDS ORDERED: methylPREDNISolone SOD SUCCI 40 MG/ML 1 ML VIAL IV SCH (21:00)
[2019-11-04 21:07] LABS: Glucose,Whole Blood 265 mg/dL (75-99)
[2019-11-04] MEDS: ATORVASTATIN 10 MG TAB PO SCH (21:20)
[2019-11-04 22:06] LABS: Glucose,Whole Blood 253 mg/dL (75-99)
[2019-11-04 23:05] LABS: Glucose,Whole Blood 247 mg/dL (75-99)
[2019-11-05 00:25] LABS: Glucose,Whole Blood 186 mg/dL (75-99)
[2019-11-05 01:10] LABS: Glucose,Whole Blood 206 mg/dL (75-99)
[2019-11-05 02:40] LABS: Glucose,Whole Blood 152 mg/dL (75-99)
[2019-11-05 03:15] LABS: Glucose,Whole Blood 156 mg/dL (75-99)
[2019-11-05] MEDS: PROPOFOL 1,000 MG in EMPTY BAG 1 BAG IV SCH ×3 (03:37→10:07)
[2019-11-05] MEDS: PIPERACILLIN-TAZOBACTAM 3.375 GM in SODIUM CHLORIDE 0.9% 100 ML IVPB SCH ×3 (03:38→21:36)
[2019-11-05] MEDS: ARTIFICIAL TEARS-HYPROMELLOSE DROPS 15 ML BTL BOTH EYES PRN (04:14)
[2019-11-05 04:24] LABS: Glucose,Whole Blood 141 mg/dL (75-99)
[2019-11-05 04:26] LABS: Anisocytosis Slight; HCT 25.6 % (39.0-53.0); HGB 8.7 gm/dL (13.0-17.5); Hypochromasia Slight; MCH 31.1 pg (25.0-35.0); MCV 91.4 fL (80.0-100.0); Mean Platelet Volume 8.8; Platelet Count 260 k/uL (150-450); Poikilocytosis Slight; RDW 16.2 % (11.5-15.5); WBC 12.3 k/uL (3.8-10.6)
[2019-11-05 04:56] LABS: Calcium 7.5 mg/dL (8.4-10.2); Magnesium 1.8 mg/dL (1.6-2.3); Phosphorus 5.1 mg/dL (2.5-4.5)
[2019-11-05 05:23] LABS: ABG Base Excess -6.3 mmol/L; ABG HCO3 20 mmol/L (21-25); ABG Oxygen Saturation 97.7 % (94-97); ABG PCO2 39 mmHg (35-45); ABG PH 7.32 (7.35-7.45); ABG PO2 90 mmHg (83-108); ABG TCO2 21 mmol/L (19-24); Allen Test Performed? Yes
[2019-11-05 05:43] LABS: Glucose,Whole Blood 142 mg/dL (75-99)
[2019-11-05 06:25] LABS: Glucose,Whole Blood 150 mg/dL (75-99)
[2019-11-05] MEDS: LEVOTHYROXINE 125 MCG TAB PO SCH (06:36)
[2019-11-05 07:19] LABS: Glucose,Whole Blood 142 mg/dL (75-99)
[2019-11-05 08:04] LABS: Glucose,Whole Blood 141 mg/dL (75-99)
--- NOTE | 2019-11-05 08:31 | XR ---
EXAMINATION TYPE: XR chest 1V portable DATE OF EXAM: 11/05/2019 CLINICAL HISTORY: Difficulty breathing progress study. TECHNIQUE: Single AP portable upright view of the chest is obtained. COMPARISON: Chest x-ray from one day earlier and older studies. FINDINGS: An endotracheal tube, orogastric tube, and right internal jugular central venous catheter are all stable in appearance. Cardiac silhouette size remains upper limits of normal with atheroscler otic thoracic aorta. There is right vertebral left bibasilar opacities redemonstrated with central va scular congestion. Upper lungs are clear without pneumothorax. Osseous structures are intact IMPRESSION: Overall stable findings, small to moderate-sized grade right greater than left bilatera l pleural effusions with mild central vascular congestion and associated bibasilar acute atelectasis and/or infiltrate are all redemonstrated.
[2019-11-05] MEDS: IPRATROPIUM-ALBUTEROL 3 ML NEB INHALATION SCH ×4 (09:08→19:35)
[2019-11-05] MEDS: FORMOTEROL FUMARATE 20 MCG/2 ML NEBU INHALATION SCH ×2 (09:09→19:35)
[2019-11-05] MEDS: BUDESONIDE 1 MG/2 ML NEBU INHALATION SCH ×2 (09:09→19:35)
[2019-11-05] MEDS: CHLORHEXIDINE GLUCONATE 15 ML CUP MUCOUS MEM SCH (10:00)
[2019-11-05] MEDS: FUROSEMIDE 10 MG/ML 4 ML VIAL IV SCH ×2 (10:00→21:34)
[2019-11-05] MEDS: PANTOPRAZOLE 40 MG/10 ML VIAL IV SCH ×2 (10:01→21:34)
[2019-11-05] MEDS: NICOTINE 14MG/24HR PATCH TRANSDERM SCH (10:01)
[2019-11-05] MEDS: LEVOTHYROXINE IVP 100 MCG/5 ML VIAL IV SCH (10:05)
[2019-11-05] MEDS: PREGABALIN 50 MG CAP PO SCH ×2 (10:06→21:36)
[2019-11-05] MEDS: METOPROLOL TARTRATE 50 MG TAB PO SCH ×2 (10:07→21:33)
[2019-11-05 10:09] LABS: Glucose,Whole Blood 147 mg/dL (75-99)
[2019-11-05] MEDS: LIOTHYRONINE SODIUM 5 MCG TAB PO SCH (10:10)
[2019-11-05] MEDS: LIDOCAINE 5% PATCH TOPICAL SCH (10:11)
[2019-11-05] MEDS: LINAGLIPTIN 5 MG TABLET PO SCH (10:11)
[2019-11-05] MEDS: FLUCONAZOLE IN NACL,ISO-OSM 100 MG in SALINE 1 50ML.BAG IVPB SCH (10:49)
[2019-11-05] MEDS ORDERED: SODIUM BICARB 8.4% 50 ML SYR (1 MEQ/ML) IV STA ×2 (11:39→13:24)
--- NOTE | 2019-11-05 11:43 | P.PN ---
Subjective Progress Note Date: 11/05/19 On 11/02/2019 I'm seeing this patient in follow-up after the he came back from the operating room for GI bleeding. The patient has been hospital for upper GI bleed. The patient had a duodenal ulcer. He was bleeding actively and has required a total of 8 units of packed RBC and 1 unit of fresh frozen plasma and this was given to him preoperatively. Patient was taken to the operating room and he had expiratory laparotomy and he had oversewing of a duodenal ulcer. Postop the patient was extubated in the operating room. He was unable to breathe, and he desaturated and he had to be reintubated. This morning the patient continues to be intubated on a mechanical ventilator. Is on propofol which is running at 50 g per KG per minute. He remains on assist control mode of ventilation at the rate of 24 with an FiO2 of 75% and a PEEP of 5 and a tidal volume of 450. The blood gas showed a pH of 7.36 with a pCO2 of 39 and pO2 109. Chest x-ray showing bilateral pleural effusions most on the right in addition to atelectatic changes in the right lung base. He is intubated by #8 orotracheal tube. No further bouts of bleeding. BP is 105/33 through his Artline. He is receiving IV fluids at the rate of 200 disease an hour and is on levo fed at the rate of 0.03 g per KG per minute. Urine output is in order of 15-20 mL an hour over the past 2 hours. The patient has a right IJ triple-lumen catheter. Cardiac rhythm is sinus. No significant tachycardia. Abdominal wound is clear. There is a IVELISSE drain in his right lower quadrant area. His current hemoglobin is at 8.8. intubated on mechanical ventilator. ] On today's evaluation of 11/03/2019, the patient is being seen in follow-up in his postop day #2 following a expiratory laparotomy, oversewing of a duodenal ulcer and control of the bleeding. Noted the patient was hemodynamically unstable and he has required a total of 8 units of packed RBC transfusion preoperatively. For now is postop day #2. Hemodynamically he is still a bit shaky. He still having lower urine output in the order of 20 mL an hour. Earlier this morning he developed a bout of hypotension, briefly placed on pressors and he subsequently improved. He is 7 kg positive in terms of his fluid balance and weight. He does have some increased edema lower extremity and the scrotum. Currently is on 200 mL an hour of normal saline. His CVP is at 5. His hemoglobin has dropped down to 7.1. No signs of any bleeding. He remains nothing by mouth. NG tube is in place. Output from the NG is in the order of minimal and output from the IVELISSE drain is in order of 1 8 mL over the past 24 hours. Abdomen is nondistended. He is afebrile. He remains on a mechanical ventilator. He is on assist control mode at the rate of 24 with a tidal volume of 450 and FiO2 was dropped down to 50% from a baseline of 60% and his PEEP is currently is at 8. He had a chest x-ray that showed improvement and atelectatic changes in lung bases and there is some small pleural effusion. No other medical issues otherwise. He is afebrile. He is nothing by mouth. No tachyc ardia. The rhythm is sinus. the wound site is dry clean and intact. On 11/04/2019 I'm seeing the patient for a follow-up. Patient is postop day #3 following laparotomy oversewing of a duodenal ulcer and control of a GI bleed. His postop day #3. He is sedated this morning with propofol which is running at 65 g per KG per minute. The patient is easily arousable. He'll be given a sedation holiday. He was dynamically, is doing well. Urine output is improved. He is on IV fluids at a rate of 100 mL an hour normal saline. He is also receiving TPN at the rate of 30 mL an hour. His propofol is running at 65 g and his triglyceride level is at 388. The patient is afebrile. His hemoglobin is stable at 7.9. No further episodes of GI bleed. NG tube is in place and output in the order of 100 mL overnight. IVELISSE drain is draining minimal amount in the order of 50 mL over the past 8 hours. He remains on assist control mode at the rate of 24 with a volume of 450 and FiO2 of 50% and a PEEP of 5. His blood gases from today showed a pH of 7.33 with a pCO2 of 36 and pO2 of 75. Chest x-r ay showed bilateral pleural effusions worse on the right. ET tube is in a good location. Clinically, the patient is in fluid overload and he has developed increased edema in his scrotum and his lower extremities. He was started on TPN for nutritional support yesterday and IV fluids have been cut down. Ultrasound the kidneys was done and there is no evidence of any hydronephrosis. Creatinine is at 2.8 is improved compared to yesterday. He does have a component of non- anion gap metabolic acidosis with a serum bicarbonate being advanced 17 and anion gap is at 7 for now. on 11/05/2019 I'm seeing the patient for a follow-up. On today's evaluation the patient is postop day #4 following daylaparotomy and oversewing of a duodenal ulcer. The patient remains on a combination of Zosyn and Diflucan. The this morning is sedated and the patient is still, comfortable. The plan for today was to consider giving him a sedation holiday and assess his readiness to wean as the patient was diuresed adequately over the past 24 hours while being on IV Lasix 40 mg every 8 hours. The patient producing approximately 4900 mL of urine output and he remains negative fluid balance. the patient is also on norepinephrine infusion which is running at 1 g per minute for blood pressure support. Creatinine today is at 2.8 which is stable compared to yesterday. In terms of his hemoglobin, the patient is stable at 8.7. He has not shown any signs of GI bleed. He is receiving PPN for nutritional support. He remains nothing by mouth oh for now. The blood gases from today shows a pH of 7.32with a pCO2 of 39 pO2 of 90. Serum bicarb is 19. He has minimal NG output. IVELISSE drain is still in place and output is 40 mL over the past 8 hours. He is afebrile. No other significant issues overnight. I was told by the family the patient has a component of PTSD which may potentially interfere without weaning process. Objective - Vital Signs Vital signs: Vital Signs Temp 97.7 F 11/05/19 08:00 Pulse 50 L 11/05/19 10:00 Resp 24 11/05/19 10:00 BP 100/50 11/05/19 06:00 Pulse Ox 98 11/05/19 10:00 Intake & Output 11/04/19 11/05/19 11/05/19 18:59 06:59 18:59 Intake Total 3739.934 9845.736 590.465 Output Total 1979 3005 1050 Balance -78.688 -1357.264 -459.535 Weight 104.8 kg Intake: IV 1360 1165 450 Fluconazole in NaCl,Iso- 150 50 Osm 100 mg In Saline 1 50ml.bag @ 50 mls/hr IVPB DAILY [facility] Rx#:[id number] Mvi, Adult No.4 with Vit 240 K 10 ml Trace (Conc-1Ml/ Dose) 1 ml Sodium Acetate 30 meq Magnesium Sulfate gm 0.5 gm Calcium Gluconate 1 gm In Amino Acid 5%-D15w 1,000 ml @ 60 mls/hr IV .[id number] [facility] Rx#:[id number] Mvi, Adult No.4 with Vit 390 690 K 10 ml Trace (Conc-1Ml/ Dose) 1 ml Sodium Acetate 30 meq Magnesium Sulfate gm 1 gm Calcium Gluconate 1 gm In Amino Acid 5%-D15w 1,000 ml @ 30 mls/hr IV .Q24H [facility] Rx #:[id number] Piperacillin-Tazobactam 3 200 100 100 .375 gm In Sodium Chloride 0.9% 100 ml @ 25 mls/hr IVPB Q8H [facility] Rx#: [id number] Sodium Chloride 0.9% 1, 420 275 60 000 ml @ 20 mls/hr IV . Q24H [facility] Rx#:[id number] metroNIDAZOLE-NS PMX 500 200 100 mg In Saline 1 100ml.bag @ 100 mls/hr IVPB Q8HR [facility] Rx#:[id number] Intake, IV Titration 541.312 482.736 140.465 Amount Insulin Regular 100 unit 42.335 4.638 In Sodium Chloride 0.9% 100 ml @ Per Protocol IV .Q0M [facility] Rx#:[id number] Norepinephrine 8 mg In 258 40.401 Sodium Chloride 0.9% 250 ml @ 0.05 MCG/KG/MIN 9. 259 mls/hr IV .Q24H [facility] Rx#:[id number] Propofol 1,000 mg In 283.312 400.000 135.827 Empty Bag 1 bag @ Titrate IV .Q0M [facility] Rx#: [id number] Output: Gastric Drainage 50 100 0 Drainage 125 300 40 Right Lower Abdomen 125 300 40 Urine 1805 2605 1010 Other: Voiding Method Indwelling Catheter Indwelling Catheter ABP, PAP, CO, CI - Last Documented Arterial Blood Pressure 112/55 - Exam Gen. appearance, comfortable sedated and intubated on a mechanical ventilator has an orotracheal an NG tube in place. Head exam was generally normal. There was no scleral icterus or corneal arcus. Mucous membranes were moist. Neck was supple and without jugular venous distension, thyromegaly, or carotid bruits. Carotids were easily palpable bilaterally. There was no adenopathy. Lungs were clear to auscultation and percussion, and with normal diaphragmatic excursion. No wheezes or rales were noted. Breath sounds are diminished in lung bases bilaterally. Cardiac exam revealed the PMI to be normally situated and sized. The rhythm was regular and no extrasystoles were noted during several minutes of auscultation. The first and second heart sounds were normal and physiologic splitting of the second heart sound was noted. There were no murmurs, rubs, clicks, or gallops. Abdomen is soft and the patient has a mid abdominal incision with a IVELISSE drain in the right lower quadrant. Bowel sounds are hypoactive. Neck tenderness. No rebound tenderness. No guarding. Examination of the extremities revealed easily palpable radial, femoral and pedal pulses. There was no cyanosis, clubbing or edema. Examination of the skin revealed no evidence of significant rashes, suspicious appearing nevi or other concerning lesions. Neurologically sedated, comfortable, the patient is being given a sedation holiday. - Labs CBC & Chem 7: 11/05/19 04:15 11/05/19 04:15 Labs: Abnormal Lab Results - Last 24 Hours (Table) 11/04/19 11/04/19 11/04/19 Range/Units 11:47 16:42 18:00 WBC (3.8-10.6) k/uL RBC (4.30-5.90) m/uL Hgb (13.0-17.5) gm/dL Hct (39.0-53.0) % RDW (11.5-15.5) % ABG pH (7.35-7.45) ABG HCO3 (21-25) mmol/L ABG O2 Saturation (94-97) % Chloride (98-107) mmol/L Carbon Dioxide (22-30) mmol/L BUN (9-20) mg/dL Creatinine (0.66-1.25) mg/dL Glucose (74-99) mg/dL POC Glucose (mg/dL) 334 H 339 H 302 H (75-99) mg/dL Calcium (8.4-10.2) mg/dL Phosphorus (2.5-4.5) mg/dL 11/04/19 11/04/19 11/04/19 Range/Units 19:01 19:53 20:55 WBC (3.8-10.6) k/uL RBC (4.30-5.90) m/uL Hgb (13.0-17.5) gm/dL Hct (39.0-53.0) % RDW (11.5-15.5) % ABG pH (7.35-7.45) ABG HCO3 (21-25) mmol/L ABG O2 Saturation (94-97) % Chloride (98-107) mmol/L Carbon Dioxide (22-30) mmol/L BUN (9-20) mg/dL Creatinine (0.66-1.25) mg/dL Glucose (74-99) mg/dL POC Glucose (mg/dL) 300 H 278 H 265 H (75-99) mg/dL Calcium (8.4-10.2) mg/dL Phosphorus (2.5-4.5) mg/dL 11/04/19 11/04/19 11/05/19 Range/Units 21:55 22:54 00:13 WBC (3.8-10.6) k/uL RBC (4.30-5.90) m/uL Hgb (13.0-17.5) gm/dL Hct (39.0-53.0) % RDW (11.5-15.5) % ABG pH (7.35-7.45) ABG HCO3 (21-25) mmol/L ABG O2 Saturation (94-97) % Chloride (98-107) mmol/L Carbon Dioxide (22-30) mmol/L BUN (9-20) mg/dL Creatinine (0.66-1.25) mg/dL Glucose (74-99) mg/dL POC Glucose (mg/dL) 253 H 247 H 186 H (75-99) mg/dL Calcium (8.4-10.2) mg/dL Phosphorus (2.5-4.5) mg/dL 11/05/19 11/05/19 11/05/19 Range/Units 00:58 02:28 03:04 WBC (3.8-10.6) k/uL RBC (4.30-5.90) m/uL Hgb (13.0-17.5) gm/dL Hct (39.0-53.0) % RDW (11.5-15.5) % ABG pH (7.35-7.45) ABG HCO3 (21-25) mmol/L ABG O2 Saturation (94-97) % Chloride (98-107) mmol/L Carbon Dioxide (22-30) mmol/L BUN (9-20) mg/dL Creatinine (0.66-1.25) mg/dL Glucose (74-99) mg/dL POC Glucose (mg/dL) 206 H 152 H 156 H (75-99) mg/dL Calcium (8.4-10.2) mg/dL Phosphorus (2.5-4.5) mg/dL 11/05/19 11/05/19 11/05/19 Range/Units 04:13 04:15 04:15 WBC 12.3 H (3.8-10.6) k/uL RBC 2.80 L (4.30-5.90) m/uL Hgb 8.7 L (13.0-17.5) gm/dL Hct 25.6 L (39.0-53.0) % RDW 16.2 H (11.5-15.5) % ABG pH (7.35-7.45) ABG HCO3 (21-25) mmol/L ABG O2 Saturation (94-97) % Chloride 117 H (98-107) mmol/L Carbon Dioxide 19 L (22-30) mmol/L BUN 46 H (9-20) mg/dL Creatinine 2.93 H (0.66-1.25) mg/dL Glucose 125 H (74-99) mg/dL POC Glucose (mg/dL) 141 H (75-99) mg/dL Calcium 7.5 L (8.4-10.2) mg/dL Phosphorus 5.1 H (2.5-4.5) mg/dL 11/05/19 11/05/19 11/05/19 Range/Units 05:19 05:32 06:14 WBC (3.8-10.6) k/uL RBC (4.30-5.90) m/uL Hgb (13.0-17.5) gm/dL Hct (39.0-53.0) % RDW (11.5-15.5) % ABG pH 7.32 L (7.35-7.45) ABG HCO3 20 L (21-25) mmol/L ABG O2 Saturation 97.7 H (94-97) % Chloride (98-107) mmol/L Carbon Dioxide (22-30) mmol/L BUN (9-20) mg/dL Creatinine (0.66-1.25) mg/dL Glucose (74-99) mg/dL POC Glucose (mg/dL) 142 H 150 H (75-99) mg/dL Calcium (8.4-10.2) mg/dL Phosphorus (2.5-4.5) mg/dL 11/05/19 11/05/19 11/05/19 Range/Units 07:08 07:53 09:58 WBC (3.8-10.6) k/uL RBC (4.30-5.90) m/uL Hgb (13.0-17.5) gm/dL Hct (39.0-53.0) % RDW (11.5-15.5) % ABG pH (7.35-7.45) ABG HCO3 (21-25) mmol/L ABG O2 Saturation (94-97) % Chloride (98-107) mmol/L Carbon Dioxide (22-30) mmol/L BUN (9-20) mg/dL Creatinine (0.66-1.25) mg/dL Glucose (74-99) mg/dL POC Glucose (mg/dL) 142 H 141 H 147 H (75-99) mg/dL Calcium (8.4-10.2) mg/dL Phosphorus (2.5-4.5) mg/dL Microbiology - Last 24 Hours (Table) 11/02/19 01:15 Gram Stain - Final Sputum Sputum Culture - Final Natalie sp,not albicans/galbr Assessment and Plan Plan: 1 acute upper GI bleed secondary to duodenal ulcer. The patient underwent exploratory laparotomy and oversewing of duodenal ulcer on today's postop day #4 2 blood loss anemia secondary to GI bleed, the hemoglobin i this stable at 8.7 3 acute hypoxic respiratory failure with development of bilateral pleural effusion and atelectatic changes in lung bases, currently intubated on a mechanical ventilator. PEEP is down to 5 with an FiO2 of 50% and the patient has bilateral pleural effusion related to aggressive fluid resuscitation on today's chest x-ray.weaned off the patient's FiO2 down to 40%. Chest x-ray still showing bilateral pleural effusion worse on the right. 4 chronic kidney disease with component of an acute kidney injury in the creatinine is at 2.9 and the patient is producing adequate urine output while being diuresis with IV Lasix. 5 obstructive sleep apnea maintained on CPAP on outpatient basis 6 hyperlipidemia 7 hypothyroidism 8 hypertension history of 9 diabetes mellitus, with improvement of blood sugar while the patient being up to Solu-Medrol. 10 osteoarthritis 11 NPO status and the patient is on PPN 12 Hypertriglyceridemia Plan IV fluids to KVO and start Lasix 40 mg IV push every 12 hours. Give the patient a dose of bicarb for underlying metabolic acidosis which is of non-anion gap type. monitor hemoglobin, no transfusion as long as the hemoglobin is above 8.7 monitor renal function as the creatinine is at 2.9 Monitor CVP PPN for nutritional support, and discuss with the general surgery the possibility of starting this patient on enteral feeding for nutritional support Echo showed a normal left ventricular ejection fraction without any significant valvular abnormalities IV Protonix edation holiday Continue IV Zosyn and Diflucan as empiric antibiotic coverage IV levothyroxine 75 g SCD to lower extremities for DT prophylaxis bilateral pleural effusion,, improving with diuresis General surgeries on the case. We'll continue to follow and make further recommendations based on his progress. Critically care evaluation, 35 minutes. Time with Patient: Greater than 30
--- NOTE | 2019-11-05 12:05 | P.PN ---
<VanegasAndie Bridgette - Last Filed: 11/05/19 14:25> Subjective Progress Note Date: 11/05/19 CHIEF COMPLAINT: Bleeding duodenal ulcer HISTORY OF PRESENT ILLNESS: 78-year-old male who is status post exploratory laparotomy with duodenotomy and oversewing of bleeding duodenal ulcer. Postop day #4. Patient remains intubated in the intensive care unit. FiO2 40%. IVELISSE drain with serous output. NG without bloody drainage. No rectal bleeding. Hemoglobin stable at 8.7. White count 12.3. PHYSICAL EXAM: VITAL SIGNS: Reviewed. GENERAL: Well-developed in no acute distress-on continuous sedation. HEENT: No sclera icterus. Extraocular movements grossly intact. Moist buccal mucosa. Head is atraumatic, normocephalic. ABDOMEN: Soft. Nondistended. Surgical dressing clean dry intact. NG to LIS. IVELISSE drain with serous drainage NEUROLOGIC: sedated on mechanical ventilation ASSESSMENT: 1. Bleeding duodenal ulcer, status post exploratory laparotomy with duodenotomy and oversewing of bleeding duodenal ulcer 2. Acute blood loss anemia PLAN: -Continue ICU/ventilator management per Dr. Pederson -Continue to monitor hemoglobin -Continue TPN -Continue NG to LIS -Continue abdominal dressing changes with nuno rodriguez -Patients son at bedside and is adamant about Flagyl being discontinued. Will DC Flagyl Nurse practitioner note has been reviewed by physician. Signing provider agrees with the documented findings, assessment, and plan of care. Objective - Vital Signs Vital signs: Vital Signs Temp 97.7 F 11/05/19 08:00 Pulse 50 L 11/05/19 10:00 Resp 24 11/05/19 10:00 BP 100/50 11/05/19 06:00 Pulse Ox 98 11/05/19 10:00 Intake & Output 11/04/19 11/05/19 11/05/19 18:59 06:59 18:59 Intake Total 9188.353 5486.736 605.247 Output Total 1979 3005 1050 Balance -78.688 -1357.264 -444.753 Weight 104.8 kg Intake: IV 1360 1165 450 Fluconazole in NaCl,Iso- 150 50 Osm 100 mg In Saline 1 50ml.bag @ 50 mls/hr IVPB DAILY [facility] Rx#:[id number] Mvi, Adult No.4 with Vit 240 K 10 ml Trace (Conc-1Ml/ Dose) 1 ml Sodium Acetate 30 meq Magnesium Sulfate gm 0.5 gm Calcium Gluconate 1 gm In Amino Acid 5%-D15w 1,000 ml @ 60 mls/hr IV .[id number] [facility] Rx#:[id number] Mvi, Adult No.4 with Vit 390 690 K 10 ml Trace (Conc-1Ml/ Dose) 1 ml Sodium Acetate 30 meq Magnesium Sulfate gm 1 gm Calcium Gluconate 1 gm In Amino Acid 5%-D15w 1,000 ml @ 30 mls/hr IV .Q24H [facility] Rx #:[id number] Piperacillin-Tazobactam 3 200 100 100 .375 gm In Sodium Chloride 0.9% 100 ml @ 25 mls/hr IVPB Q8H [facility] Rx#: [id number] Sodium Chloride 0.9% 1, 420 275 60 000 ml @ 20 mls/hr IV . Q24H [facility] Rx#:[id number] metroNIDAZOLE-NS PMX 500 200 100 mg In Saline 1 100ml.bag @ 100 mls/hr IVPB Q8HR [facility] Rx#:[id number] Intake, IV Titration 541.312 482.736 155.247 Amount Insulin Regular 100 unit 42.335 10.117 In Sodium Chloride 0.9% 100 ml @ Per Protocol IV .Q0M [facility] Rx#:[id number] Norepinephrine 8 mg In 258 40.401 6.945 Sodium Chloride 0.9% 250 ml @ 0.05 MCG/KG/MIN 9. 259 mls/hr IV .Q24H [facility] Rx#:[id number] Propofol 1,000 mg In 283.312 400.000 138.185 Empty Bag 1 bag @ Titrate IV .Q0M [facility] Rx#: [id number] Output: Gastric Drainage 50 100 0 Drainage 125 300 40 Right Lower Abdomen 125 300 40 Urine 1805 2605 1010 Other: Voiding Method Indwelling Catheter Indwelling Catheter ABP, PAP, CO, CI - Last Documented Arterial Blood Pressure 112/55 - Labs CBC & Chem 7: 11/05/19 04:15 11/05/19 04:15 Labs: Abnormal Lab Results - Last 24 Hours (Table) 11/04/19 11/04/19 11/04/19 Range/Units 16:42 18:00 19:01 WBC (3.8-10.6) k/uL RBC (4.30-5.90) m/uL Hgb (13.0-17.5) gm/dL Hct (39.0-53.0) % RDW (11.5-15.5) % ABG pH (7.35-7.45) ABG HCO3 (21-25) mmol/L ABG O2 Saturation (94-97) % Chloride (98-107) mmol/L Carbon Dioxide (22-30) mmol/L BUN (9-20) mg/dL Creatinine (0.66-1.25) mg/dL Glucose (74-99) mg/dL POC Glucose (mg/dL) 339 H 302 H 300 H (75-99) mg/dL Calcium (8.4-10.2) mg/dL Phosphorus (2.5-4.5) mg/dL 11/04/19 11/04/19 11/04/19 Range/Units 19:53 20:55 21:55 WBC (3.8-10.6) k/uL RBC (4.30-5.90) m/uL Hgb (13.0-17.5) gm/dL Hct (39.0-53.0) % RDW (11.5-15.5) % ABG pH (7.35-7.45) ABG HCO3 (21-25) mmol/L ABG O2 Saturation (94-97) % Chloride (98-107) mmol/L Carbon Dioxide (22-30) mmol/L BUN (9-20) mg/dL Creatinine (0.66-1.25) mg/dL Glucose (74-99) mg/dL POC Glucose (mg/dL) 278 H 265 H 253 H (75-99) mg/dL Calcium (8.4-10.2) mg/dL Phosphorus (2.5-4.5) mg/dL 11/04/19 11/05/19 11/05/19 Range/Units 22:54 00:13 00:58 WBC (3.8-10.6) k/uL RBC (4.30-5.90) m/uL Hgb (13.0-17.5) gm/dL Hct (39.0-53.0) % RDW (11.5-15.5) % ABG pH (7.35-7.45) ABG HCO3 (21-25) mmol/L ABG O2 Saturation (94-97) % Chloride (98-107) mmol/L Carbon Dioxide (22-30) mmol/L BUN (9-20) mg/dL Creatinine (0.66-1.25) mg/dL Glucose (74-99) mg/dL POC Glucose (mg/dL) 247 H 186 H 206 H (75-99) mg/dL Calcium (8.4-10.2) mg/dL Phosphorus (2.5-4.5) mg/dL 11/05/19 11/05/19 11/05/19 Range/Units 02:28 03:04 04:13 WBC (3.8-10.6) k/uL RBC (4.30-5.90) m/uL Hgb (13.0-17.5) gm/dL Hct (39.0-53.0) % RDW (11.5-15.5) % ABG pH (7.35-7.45) ABG HCO3 (21-25) mmol/L ABG O2 Saturation (94-97) % Chloride (98-107) mmol/L Carbon Dioxide (22-30) mmol/L BUN (9-20) mg/dL Creatinine (0.66-1.25) mg/dL Glucose (74-99) mg/dL POC Glucose (mg/dL) 152 H 156 H 141 H (75-99) mg/dL Calcium (8.4-10.2) mg/dL Phosphorus (2.5-4.5) mg/dL 11/05/19 11/05/19 11/05/19 Range/Units 04:15 04:15 05:19 WBC 12.3 H (3.8-10.6) k/uL RBC 2.80 L (4.30-5.90) m/uL Hgb 8.7 L (13.0-17.5) gm/dL Hct 25.6 L (39.0-53.0) % RDW 16.2 H (11.5-15.5) % ABG pH 7.32 L (7.35-7.45) ABG HCO3 20 L (21-25) mmol/L ABG O2 Saturation 97.7 H (94-97) % Chloride 117 H (98-107) mmol/L Carbon Dioxide 19 L (22-30) mmol/L BUN 46 H (9-20) mg/dL Creatinine 2.93 H (0.66-1.25) mg/dL Glucose 125 H (74-99) mg/dL POC Glucose (mg/dL) (75-99) mg/dL Calcium 7.5 L (8.4-10.2) mg/dL Phosphorus 5.1 H (2.5-4.5) mg/dL 11/05/19 11/05/19 11/05/19 Range/Units 05:32 06:14 07:08 WBC (3.8-10.6) k/uL RBC (4.30-5.90) m/uL Hgb (13.0-17.5) gm/dL Hct (39.0-53.0) % RDW (11.5-15.5) % ABG pH (7.35-7.45) ABG HCO3 (21-25) mmol/L ABG O2 Saturation (94-97) % Chloride (98-107) mmol/L Carbon Dioxide (22-30) mmol/L BUN (9-20) mg/dL Creatinine (0.66-1.25) mg/dL Glucose (74-99) mg/dL POC Glucose (mg/dL) 142 H 150 H 142 H (75-99) mg/dL Calcium (8.4-10.2) mg/dL Phosphorus (2.5-4.5) mg/dL 11/05/19 11/05/19 Range/Units 07:53 09:58 WBC (3.8-10.6) k/uL RBC (4.30-5.90) m/uL Hgb (13.0-17.5) gm/dL Hct (39.0-53.0) % RDW (11.5-15.5) % ABG pH (7.35-7.45) ABG HCO3 (21-25) mmol/L ABG O2 Saturation (94-97) % Chloride (98-107) mmol/L Carbon Dioxide (22-30) mmol/L BUN (9-20) mg/dL Creatinine (0.66-1.25) mg/dL Glucose (74-99) mg/dL POC Glucose (mg/dL) 141 H 147 H (75-99) mg/dL Calcium (8.4-10.2) mg/dL Phosphorus (2.5-4.5) mg/dL Microbiology - Last 24 Hours (Table) 11/02/19 01:15 Gram Stain - Final Sputum Sputum Culture - Final Natalie sp,not albicans/galbr <Jose Gifford - Last Filed: 11/05/19 16:04> Subjective patient extubated today. Complaint of mild abdominal discomfort. He did have a small to moderate sized melanotic stool. Nasogastric tube was removed at the time of extubation and output was minimal and bilious at that time. Continue TPN for now. Keep nothing by mouth. Recheck CBC.patient's son apparently was belligerent with the nursing staff again today. He was demanding the Flagyl be discontinued. I am just now finding out about this. Overall value relatively low and he has been on antibiotics for the last 5 days. continue remaining antibiotics for 2 more days. Objective - Vital Signs Vital signs: Vital Signs Temp 97.5 F L 11/05/19 12:00 Pulse 90 11/05/19 15:00 Resp 14 11/05/19 15:00 BP 140/64 11/05/19 13:00 Pulse Ox 91 L 11/05/19 15:00 Intake & Output 11/04/19 11/05/19 11/05/19 18:59 06:59 18:59 Intake Total 9029.493 8881.736 750.844 Output Total 1980 3005 2585 Balance -78.688 -1357.264 -1834.156 Weight 104.8 kg Intake: IV 1360 1165 590 Fluconazole in NaCl,Iso- 150 50 Osm 100 mg In Saline 1 50ml.bag @ 50 mls/hr IVPB DAILY [facility] Rx#:[id number] Mvi, Adult No.4 with Vit 300 K 10 ml Trace (Conc-1Ml/ Dose) 1 ml Sodium Acetate 30 meq Magnesium Sulfate gm 0.5 gm Calcium Gluconate 1 gm In Amino Acid 5%-D15w 1,000 ml @ 60 mls/hr IV .[id number] [facility] Rx#:[id number] Mvi, Adult No.4 with Vit 390 690 K 10 ml Trace (Conc-1Ml/ Dose) 1 ml Sodium Acetate 30 meq Magnesium Sulfate gm 1 gm Calcium Gluconate 1 gm In Amino Acid 5%-D15w 1,000 ml @ 30 mls/hr IV .Q24H [facility] Rx #:[id number] Piperacillin-Tazobactam 3 200 100 100 .375 gm In Sodium Chloride 0.9% 100 ml @ 25 mls/hr IVPB Q8H [facility] Rx#: [id number] Sodium Chloride 0.9% 1, 420 275 140 000 ml @ 20 mls/hr IV . Q24H [facility] Rx#:[id number] metroNIDAZOLE-NS PMX 500 200 100 mg In Saline 1 100ml.bag @ 100 mls/hr IVPB Q8HR [facility] Rx#:[id number] Intake, IV Titration 541.312 482.736 160.844 Amount Insulin Regular 100 unit 42.335 15.714 In Sodium Chloride 0.9% 100 ml @ Per Protocol IV .Q0M [facility] Rx#:[id number] Norepinephrine 8 mg In 258 40.401 6.945 Sodium Chloride 0.9% 250 ml @ 0.05 MCG/KG/MIN 9. 259 mls/hr IV .Q24H [facility] Rx#:[id number] Propofol 1,000 mg In 283.312 400.000 138.185 Empty Bag 1 bag @ Titrate IV .Q0M [facility] Rx#: [id number] Output: Gastric Drainage 50 100 0 Drainage 125 300 120 Right Lower Abdomen 125 300 120 Urine 1805 2605 2465 Other: Voiding Method Indwelling Catheter Indwelling Catheter Indwelling Catheter # Bowel Movements 1 ABP, PAP, CO, CI - Last Documented Arterial Blood Pressure 140/48 - Labs CBC & Chem 7: 11/05/19 04:15 11/05/19 04:15 Labs: Abnormal Lab Results - Last 24 Hours (Table) 11/04/19 11/04/19 11/04/19 Range/Units 16:42 18:00 19:01 WBC (3.8-10.6) k/uL RBC (4.30-5.90) m/uL Hgb (13.0-17.5) gm/dL Hct (39.0-53.0) % RDW (11.5-15.5) % ABG pH (7.35-7.45) ABG pO2 (83-108) mmHg ABG HCO3 (21-25) mmol/L ABG O2 Saturation (94-97) % Chloride (98-107) mmol/L Carbon Dioxide (22-30) mmol/L BUN (9-20) mg/dL Creatinine (0.66-1.25) mg/dL Glucose (74-99) mg/dL POC Glucose (mg/dL) 339 H 302 H 300 H (75-99) mg/dL Calcium (8.4-10.2) mg/dL Phosphorus (2.5-4.5) mg/dL 11/04/19 11/04/19 11/04/19 Range/Units 19:53 20:55 21:55 WBC (3.8-10.6) k/uL RBC (4.30-5.90) m/uL Hgb (13.0-17.5) gm/dL Hct (39.0-53.0) % RDW (11.5-15.5) % ABG pH (7.35-7.45) ABG pO2 (83-108) mmHg ABG HCO3 (21-25) mmol/L ABG O2 Saturation (94-97) % Chloride (98-107) mmol/L Carbon Dioxide (22-30) mmol/L BUN (9-20) mg/dL Creatinine (0.66-1.25) mg/dL Glucose (74-99) mg/dL POC Glucose (mg/dL) 278 H 265 H 253 H (75-99) mg/dL Calcium (8.4-10.2) mg/dL Phosphorus (2.5-4.5) mg/dL 11/04/19 11/05/19 11/05/19 Range/Units 22:54 00:13 00:58 WBC (3.8-10.6) k/uL RBC (4.30-5.90) m/uL Hgb (13.0-17.5) gm/dL Hct (39.0-53.0) % RDW (11.5-15.5) % ABG pH (7.35-7.45) ABG pO2 (83-108) mmHg ABG HCO3 (21-25) mmol/L ABG O2 Saturation (94-97) % Chloride (98-107) mmol/L Carbon Dioxide (22-30) mmol/L BUN (9-20) mg/dL Creatinine (0.66-1.25) mg/dL Glucose (74-99) mg/dL POC Glucose (mg/dL) 247 H 186 H 206 H (75-99) mg/dL Calcium (8.4-10.2) mg/dL Phosphorus (2.5-4.5) mg/dL 11/05/19 11/05/19 11/05/19 Range/Units 02:28 03:04 04:13 WBC (3.8-10.6) k/uL RBC (4.30-5.90) m/uL Hgb (13.0-17.5) gm/dL Hct (39.0-53.0) % RDW (11.5-15.5) % ABG pH (7.35-7.45) ABG pO2 (83-108) mmHg ABG HCO3 (21-25) mmol/L ABG O2 Saturation (94-97) % Chloride (98-107) mmol/L Carbon Dioxide (22-30) mmol/L BUN (9-20) mg/dL Creatinine (0.66-1.25) mg/dL Glucose (74-99) mg/dL POC Glucose (mg/dL) 152 H 156 H 141 H (75-99) mg/dL Calcium (8.4-10.2) mg/dL Phosphorus (2.5-4.5) mg/dL 11/05/19 11/05/19 11/05/19 Range/Units 04:15 04:15 05:19 WBC 12.3 H (3.8-10.6) k/uL RBC 2.80 L (4.30-5.90) m/uL Hgb 8.7 L (13.0-17.5) gm/dL Hct 25.6 L (39.0-53.0) % RDW 16.2 H (11.5-15.5) % ABG pH 7.32 L (7.35-7.45) ABG pO2 (83-108) mmHg ABG HCO3 20 L (21-25) mmol/L ABG O2 Saturation 97.7 H (94-97) % Chloride 117 H (98-107) mmol/L Carbon Dioxide 19 L (22-30) mmol/L BUN 46 H (9-20) mg/dL Creatinine 2.93 H (0.66-1.25) mg/dL Glucose 125 H (74-99) mg/dL POC Glucose (mg/dL) (75-99) mg/dL Calcium 7.5 L (8.4-10.2) mg/dL Phosphorus 5.1 H (2.5-4.5) mg/dL 11/05/19 11/05/19 11/05/19 Range/Units 05:32 06:14 07:08 WBC (3.8-10.6) k/uL RBC (4.30-5.90) m/uL Hgb (13.0-17.5) gm/dL Hct (39.0-53.0) % RDW (11.5-15.5) % ABG pH (7.35-7.45) ABG pO2 (83-108) mmHg ABG HCO3 (21-25) mmol/L ABG O2 Saturation (94-97) % Chloride (98-107) mmol/L Carbon Dioxide (22-30) mmol/L BUN (9-20) mg/dL Creatinine (0.66-1.25) mg/dL Glucose (74-99) mg/dL POC Glucose (mg/dL) 142 H 150 H 142 H (75-99) mg/dL Calcium (8.4-10.2) mg/dL Phosphorus (2.5-4.5) mg/dL 11/05/19 11/05/19 11/05/19 Range/Units 07:53 09:58 11:55 WBC (3.8-10.6) k/uL RBC (4.30-5.90) m/uL Hgb (13.0-17.5) gm/dL Hct (39.0-53.0) % RDW (11.5-15.5) % ABG pH (7.35-7.45) ABG pO2 (83-108) mmHg ABG HCO3 (21-25) mmol/L ABG O2 Saturation (94-97) % Chloride (98-107) mmol/L Carbon Dioxide (22-30) mmol/L BUN (9-20) mg/dL Creatinine (0.66-1.25) mg/dL Glucose (74-99) mg/dL POC Glucose (mg/dL) 141 H 147 H 147 H (75-99) mg/dL Calcium (8.4-10.2) mg/dL Phosphorus (2.5-4.5) mg/dL 11/05/19 11/05/19 Range/Units 13:06 14:09 WBC (3.8-10.6) k/uL RBC (4.30-5.90) m/uL Hgb (13.0-17.5) gm/dL Hct (39.0-53.0) % RDW (11.5-15.5) % ABG pH 7.32 L (7.35-7.45) ABG pO2 73 L (83-108) mmHg ABG HCO3 20 L (21-25) mmol/L ABG O2 Saturation (94-97) % Chloride (98-107) mmol/L Carbon Dioxide (22-30) mmol/L BUN (9-20) mg/dL Creatinine (0.66-1.25) mg/dL Glucose (74-99) mg/dL POC Glucose (mg/dL) 101 H (75-99) mg/dL Calcium (8.4-10.2) mg/dL Phosphorus (2.5-4.5) mg/dL Microbiology - Last 24 Hours (Table) 11/02/19 01:15 Gram Stain - Final Sputum Sputum Culture - Final Natalie sp,not albicans/galbr Assessment and Plan (1) Bleeding duodenal ulcer Current Visit: Yes Status: Acute Code(s): K26.4 - CHRONIC OR UNSPECIFIED DUODENAL ULCER WITH HEMORRHAGE SNOMED Code(s): 45538776
[2019-11-05 12:06] LABS: Glucose,Whole Blood 147 mg/dL (75-99)
[2019-11-05] MEDS: HYDROmorphone 0.5 MG/0.5 ML SYRINGE IVP PRN (12:30)
[2019-11-05 13:07] LABS: ABG Base Excess -5.7 mmol/L; ABG HCO3 20 mmol/L (21-25); ABG Oxygen Saturation 94.9 % (94-97); ABG PCO2 39 mmHg (35-45); ABG PH 7.32 (7.35-7.45); ABG PO2 73 mmHg (83-108); ABG TCO2 22 mmol/L (19-24)
[2019-11-05 13:11] LABS: Allen Test Performed? no
[2019-11-05] MEDS: NOREPINEPHRINE 8 MG in SODIUM CHLORIDE 0.9% 250 ML IV SCH (13:13)
[2019-11-05] MEDS ORDERED: SODIUM BICARB 8.4% 50 ML SYR (1 MEQ/ML) ONE (13:26)
[2019-11-05 14:20] LABS: Glucose,Whole Blood 101 mg/dL (75-99)
[2019-11-05] MEDS: HYDROmorphone 1 MG/ML 1 ML SYRINGE IVP PRN ×2 (14:35→18:07)
[2019-11-05 15:11] LABS: Hemoglobin A1C 5.5 % (4.0-6.0)
[2019-11-05 16:09] LABS: Glucose,Whole Blood 95 mg/dL (75-99)
[2019-11-05] MEDS: MVI, ADULT NO.4 WITH VIT K 10 ML, TRACE (CONC-1ML/DOSE) 1 ML, SODIUM ACETATE 30 MEQ, MA... IV SCH ×6 (16:22)
[2019-11-05] MEDS: SODIUM CHLORIDE 0.9% 1,000 ML IV SCH (16:26)
[2019-11-05] MEDS: INSULIN ASPART (NovoLOG) 100 UNIT/ML VIAL SQ SCH ×2 (16:33→21:43)
[2019-11-05 16:44] LABS: Anisocytosis Slight; HGB 9.7 gm/dL (13.0-17.5); MCH 29.4 pg (25.0-35.0); MCHC 32.3 g/dL (31.0-37.0); MCV 90.9 fL (80.0-100.0); Mean Platelet Volume 8.2; Platelet Count 233 k/uL (150-450); RDW 16.4 % (11.5-15.5); WBC 10.6 k/uL (3.8-10.6)
[2019-11-05 20:20] LABS: Glucose,Whole Blood 145 mg/dL (75-99)
[2019-11-05] MEDS: ATORVASTATIN 10 MG TAB PO SCH (21:33)
[2019-11-06 00:09] LABS: Glucose,Whole Blood 206 mg/dL (75-99)
[2019-11-06] MEDS: HYDROmorphone 0.5 MG/0.5 ML SYRINGE IVP PRN (00:18)
[2019-11-06] MEDS: INSULIN ASPART (NovoLOG) 100 UNIT/ML VIAL SQ SCH ×6 (00:22→21:58)
[2019-11-06 04:39] LABS: Anisocytosis Slight; HCT 30.3 % (39.0-53.0); HGB 9.8 gm/dL (13.0-17.5); MCH 29.6 pg (25.0-35.0); MCHC 32.5 g/dL (31.0-37.0); MCV 91.2 fL (80.0-100.0); Mean Platelet Volume 8.8; Platelet Count 205 k/uL (150-450); RBC 3.32 m/uL (4.30-5.90); RDW 16.3 % (11.5-15.5); WBC 8.4 k/uL (3.8-10.6)
[2019-11-06 04:42] LABS: Glucose,Whole Blood 190 mg/dL (75-99)
[2019-11-06 04:48] LABS: Calcium 7.9 mg/dL (8.4-10.2); Magnesium 1.7 mg/dL (1.6-2.3); Phosphorus 4.1 mg/dL (2.5-4.5); Potassium 3.6 mmol/L (3.5-5.1)
[2019-11-06] MEDS: PIPERACILLIN-TAZOBACTAM 3.375 GM in SODIUM CHLORIDE 0.9% 100 ML IVPB SCH ×3 (05:23→21:57)
[2019-11-06] MEDS: HYDROmorphone 1 MG/ML 1 ML SYRINGE IVP PRN (05:37)
[2019-11-06] MEDS ORDERED: Potassium Replacement Protocol 1 EACH MISC MISCELLANE PRN (05:42)
[2019-11-06] MEDS: LEVOTHYROXINE 125 MCG TAB PO SCH (06:19)
[2019-11-06] MEDS: POTASSIUM CHLORIDE 10 MEQ in WATER FOR INJECTION 1 100ML.BAG IVPB SCH ×2 (06:20→09:02)
[2019-11-06] MEDS: IPRATROPIUM-ALBUTEROL 3 ML NEB INHALATION SCH ×4 (07:39→19:30)
[2019-11-06] MEDS: BUDESONIDE 1 MG/2 ML NEBU INHALATION SCH ×2 (07:40→19:30)
[2019-11-06] MEDS: FORMOTEROL FUMARATE 20 MCG/2 ML NEBU INHALATION SCH ×2 (07:40→19:30)
--- NOTE | 2019-11-06 08:48 | XR ---
EXAMINATION TYPE: XR chest 1V DATE OF EXAM: 11/06/2019 HISTORY: Shortness of breath. COMPARISON: 11/05/2019 TECHNIQUE: Single view of the chest is submitted. FINDINGS: Endotracheal tube and NG tube have been removed in the interval. Right IJ central venous line is note d be in place with its distal tip within the proximal superior vena cava. There is pulmonary venous congestion with basilar effusions and atelectasis as well as cardiomegaly c ompatible with stable congestive failure. No evidence for pneumothorax. IMPRESSION: 1. Stable features of congestive failure.
[2019-11-06] MEDS: PREGABALIN 50 MG CAP PO SCH ×2 (09:04→21:59)
[2019-11-06] MEDS: METOPROLOL TARTRATE 50 MG TAB PO SCH ×2 (09:04→21:58)
[2019-11-06] MEDS: LINAGLIPTIN 5 MG TABLET PO SCH (09:04)
[2019-11-06] MEDS: LIOTHYRONINE SODIUM 5 MCG TAB PO SCH (09:04)
[2019-11-06 09:06] LABS: Glucose,Whole Blood 205 mg/dL (75-99)
[2019-11-06] MEDS: FUROSEMIDE 10 MG/ML 4 ML VIAL IV SCH (09:07)
[2019-11-06] MEDS: PANTOPRAZOLE 40 MG/10 ML VIAL IV SCH ×2 (09:07→21:58)
[2019-11-06] MEDS: LIDOCAINE 5% PATCH TOPICAL SCH (09:12)
[2019-11-06] MEDS: NICOTINE 14MG/24HR PATCH TRANSDERM SCH (09:16)
[2019-11-06] MEDS: FLUCONAZOLE IN NACL,ISO-OSM 100 MG in SALINE 1 50ML.BAG IVPB SCH (09:18)
[2019-11-06] MEDS: MVI, ADULT NO.4 WITH VIT K 10 ML, TRACE (CONC-1ML/DOSE) 1 ML, SODIUM ACETATE 30 MEQ, MA... IV SCH ×6 (09:24)
[2019-11-06] MEDS: LEVOTHYROXINE IVP 100 MCG/5 ML VIAL IV SCH (09:30)
--- NOTE | 2019-11-06 09:30 | P.PN ---
<VanegasAndie Bridgette - Last Filed: 11/06/19 09:27> Subjective Progress Note Date: 11/06/19 CHIEF COMPLAINT: Bleeding duodenal ulcer HISTORY OF PRESENT ILLNESS: 78-year-old male who is status post exploratory laparotomy with duodenotomy and oversewing of bleeding duodenal ulcer. Postop day #5. patient was extubated yesterday. Patient slightly lethargic this morning. Nursing reports no further episodes of melanotic stools. Hemoglobin remains stable at 9.8. IVELISSE drain with serous drainage. PHYSICAL EXAM: VITAL SIGNS: Reviewed. GENERAL: Well-developed in no acute distress HEENT: No sclera icterus. Extraocular movements grossly intact. Moist buccal mucosa. Head is atraumatic, normocephalic. ABDOMEN: Soft. Nondistended. Surgical dressing clean dry intact. IVELISSE drain with serous drainage NEUROLOGIC: slightly lethargic. Easily arousable to verbal stimulation. ASSESSMENT: 1. Bleeding duodenal ulcer, status post exploratory laparotomy with duodenotomy and oversewing of bleeding duodenal ulcer 2. Acute blood loss anemia PLAN: -Continue to monitor hemoglobin -Continue abdominal dressing changes with telfa michael -Continue antibiotics -Monitor drainage from IVELISSE drain -Continue TPN. Continue NPO for now. Dr. Gifford will re-evaluate patient this afternoon. Possible initiation of clear liquids at that time. Nurse practitioner note has been reviewed by physician. Signing provider agrees with the documented findings, assessment, and plan of care. Objective - Vital Signs Vital signs: Vital Signs Temp 98.4 F 11/06/19 04:00 Pulse 82 11/06/19 08:03 Resp 13 11/06/19 07:00 BP 142/67 11/06/19 07:00 Pulse Ox 96 11/06/19 07:00 Intake & Output 11/05/19 11/06/19 11/06/19 18:59 06:59 18:59 Intake Total 2026.844 920 70 Output Total 3405 2410 100 Balance -1377.156 -1490 -30 Weight 103.9 kg Intake: IV 830 920 70 Fluconazole in NaCl,Iso- 50 Osm 100 mg In Saline 1 50ml.bag @ 50 mls/hr IVPB DAILY [facility] Rx#:[id number] Mvi, Adult No.4 with Vit 480 780 60 K 10 ml Trace (Conc-1Ml/ Dose) 1 ml Sodium Acetate 30 meq Magnesium Sulfate gm 0.5 gm Calcium Gluconate 1 gm In Amino Acid 5%-D15w 1,000 ml @ 60 mls/hr IV .[id number] [facility] Rx#:[id number] Piperacillin-Tazobactam 3 100 .375 gm In Sodium Chloride 0.9% 100 ml @ 25 mls/hr IVPB Q8H [facility] Rx#: [id number] Sodium Chloride 0.9% 1, 200 140 10 000 ml @ 20 mls/hr IV . Q24H [facility] Rx#:[id number] Intake, IV Titration 1197.844 Amount Insulin Regular 100 unit 15.714 In Sodium Chloride 0.9% 100 ml @ Per Protocol IV .Q0M [facility] Rx#:[id number] Mvi, Adult No.4 with Vit 1037 K 10 ml Trace (Conc-1Ml/ Dose) 1 ml Sodium Acetate 30 meq Magnesium Sulfate gm 0.5 gm Calcium Gluconate 1 gm In Amino Acid 5%-D15w 1,000 ml @ 60 mls/hr IV .[id number] [facility] Rx#:[id number] Norepinephrine 8 mg In 6.945 Sodium Chloride 0.9% 250 ml @ 0.05 MCG/KG/MIN 9. 259 mls/hr IV .Q24H [facility] Rx#:[id number] Propofol 1,000 mg In 138.185 Empty Bag 1 bag @ Titrate IV .Q0M [facility] Rx#: [id number] Output: Gastric Drainage 0 Drainage 120 50 Right Lower Abdomen 120 50 Urine 3285 2360 100 Other: Voiding Method Indwelling Catheter Indwelling Catheter # Bowel Movements 1 ABP, PAP, CO, CI - Last Documented Arterial Blood Pressure 171/58 - Labs CBC & Chem 7: 11/06/19 04:20 11/06/19 04:20 Labs: Abnormal Lab Results - Last 24 Hours (Table) 11/05/19 11/05/19 11/05/19 Range/Units 09:58 11:55 13:06 RBC (4.30-5.90) m/uL Hgb (13.0-17.5) gm/dL Hct (39.0-53.0) % RDW (11.5-15.5) % ABG pH 7.32 L (7.35-7.45) ABG pO2 73 L (83-108) mmHg ABG HCO3 20 L (21-25) mmol/L Chloride (98-107) mmol/L BUN (9-20) mg/dL Creatinine (0.66-1.25) mg/dL Glucose (74-99) mg/dL POC Glucose (mg/dL) 147 H 147 H (75-99) mg/dL Calcium (8.4-10.2) mg/dL 11/05/19 11/05/19 11/05/19 Range/Units 14:09 16:32 20:07 RBC 3.30 L (4.30-5.90) m/uL Hgb 9.7 L (13.0-17.5) gm/dL Hct 30.0 L (39.0-53.0) % RDW 16.4 H (11.5-15.5) % ABG pH (7.35-7.45) ABG pO2 (83-108) mmHg ABG HCO3 (21-25) mmol/L Chloride (98-107) mmol/L BUN (9-20) mg/dL Creatinine (0.66-1.25) mg/dL Glucose (74-99) mg/dL POC Glucose (mg/dL) 101 H 145 H (75-99) mg/dL Calcium (8.4-10.2) mg/dL 11/05/19 11/06/19 11/06/19 Range/Units 23:58 04:20 04:20 RBC 3.32 L (4.30-5.90) m/uL Hgb 9.8 L (13.0-17.5) gm/dL Hct 30.3 L (39.0-53.0) % RDW 16.3 H (11.5-15.5) % ABG pH (7.35-7.45) ABG pO2 (83-108) mmHg ABG HCO3 (21-25) mmol/L Chloride 113 H (98-107) mmol/L BUN 47 H (9-20) mg/dL Creatinine 3.03 H (0.66-1.25) mg/dL Glucose 174 H (74-99) mg/dL POC Glucose (mg/dL) 206 H (75-99) mg/dL Calcium 7.9 L (8.4-10.2) mg/dL 11/06/19 11/06/19 Range/Units 04:30 08:55 RBC (4.30-5.90) m/uL Hgb (13.0-17.5) gm/dL Hct (39.0-53.0) % RDW (11.5-15.5) % ABG pH (7.35-7.45) ABG pO2 (83-108) mmHg ABG HCO3 (21-25) mmol/L Chloride (98-107) mmol/L BUN (9-20) mg/dL Creatinine (0.66-1.25) mg/dL Glucose (74-99) mg/dL POC Glucose (mg/dL) 190 H 205 H (75-99) mg/dL Calcium (8.4-10.2) mg/dL Microbiology - Last 24 Hours (Table) 11/05/19 05:00 Blood Culture - Preliminary Blood No Growth after 24 hours <Jsoe Gifford - Last Filed: 11/06/19 19:36> Subjective As above. Patient doing fairly well. He did have 2 bowel movements today that had evidence of old blood. No bright red blood per rectum. Hemoglobin actually increased further. IVELISSE drain serosanguineous. He passed his swallow evaluation. We'll be starting clear liquids. Objective - Vital Signs Vital signs: Vital Signs Temp 98.1 F 11/06/19 16:00 Pulse 80 11/06/19 19:30 Resp 19 11/06/19 19:00 BP 141/75 11/06/19 19:00 Pulse Ox 94 L 11/06/19 18:30 Intake & Output 11/06/19 11/06/19 11/07/19 06:59 18:59 06:59 Intake Total 920 1424.98 400.83 Output Total 2410 3250 500 Balance -1490 -1825.02 -99.17 Weight 103.9 kg 103.9 kg Intake: IV 920 1100 80 Fluconazole in NaCl,Iso- 50 Osm 100 mg In Saline 1 50ml.bag @ 50 mls/hr IVPB DAILY [facility] Rx#:[id number] Mvi, Adult No.4 with Vit 780 720 60 K 10 ml Trace (Conc-1Ml/ Dose) 1 ml Sodium Acetate 30 meq Magnesium Sulfate gm 0.5 gm Calcium Gluconate 1 gm In Amino Acid 5%-D15w 1,000 ml @ 60 mls/hr IV .[id number] [facility] Rx#:[id number] Piperacillin-Tazobactam 3 100 .375 gm In Sodium Chloride 0.9% 100 ml @ 25 mls/hr IVPB Q8H [facility] Rx#: [id number] Sodium Chloride 0.9% 1, 140 230 20 000 ml @ 20 mls/hr IV . Q24H [facility] Rx#:[id number] Intake, IV Titration 324.98 20.83 Amount Fat Emulsion 20% 250 ml @ 124.98 20.83 20.833 mls/hr IV DAILY@ 1200 [facility] Rx#:[id number] Magnesium Sulfate-D5w Pmx 200 1 gm In Dextrose/Water 1 100ml.bag @ 100 mls/hr IVPB Q1H [facility] Rx#: [id number] Oral 300 Output: Drainage 50 Right Lower Abdomen 50 Urine 2360 3250 500 Other: Voiding Method Indwelling Catheter Indwelling Catheter # Bowel Movements 1 ABP, PAP, CO, CI - Last Documented Arterial Blood Pressure 168/55 - Labs CBC & Chem 7: 11/06/19 18:34 11/06/19 04:20 Labs: Abnormal Lab Results - Last 24 Hours (Table) 11/05/19 11/05/19 11/06/19 Range/Units 20:07 23:58 04:20 RBC (4.30-5.90) m/uL Hgb (13.0-17.5) gm/dL Hct (39.0-53.0) % RDW (11.5-15.5) % Chloride 113 H (98-107) mmol/L BUN 47 H (9-20) mg/dL Creatinine 3.03 H (0.66-1.25) mg/dL Glucose 174 H (74-99) mg/dL POC Glucose (mg/dL) 145 H 206 H (75-99) mg/dL Calcium 7.9 L (8.4-10.2) mg/dL 11/06/19 11/06/19 11/06/19 Range/Units 04:20 04:30 08:55 RBC 3.32 L (4.30-5.90) m/uL Hgb 9.8 L (13.0-17.5) gm/dL Hct 30.3 L (39.0-53.0) % RDW 16.3 H (11.5-15.5) % Chloride (98-107) mmol/L BUN (9-20) mg/dL Creatinine (0.66-1.25) mg/dL Glucose (74-99) mg/dL POC Glucose (mg/dL) 190 H 205 H (75-99) mg/dL Calcium (8.4-10.2) mg/dL 11/06/19 11/06/19 11/06/19 Range/Units 11:59 17:07 18:34 RBC 3.25 L (4.30-5.90) m/uL Hgb 10.6 L (13.0-17.5) gm/dL Hct 29.1 L (39.0-53.0) % RDW 16.4 H (11.5-15.5) % Chloride (98-107) mmol/L BUN (9-20) mg/dL Creatinine (0.66-1.25) mg/dL Glucose (74-99) mg/dL POC Glucose (mg/dL) 224 H 216 H (75-99) mg/dL Calcium (8.4-10.2) mg/dL Microbiology - Last 24 Hours (Table) 11/05/19 05:00 Blood Culture - Preliminary Blood No Growth after 24 hours Assessment and Plan (1) Bleeding duodenal ulcer Current Visit: Yes Status: Acute Code(s): K26.4 - CHRONIC OR UNSPECIFIED DUODENAL ULCER WITH HEMORRHAGE SNOMED Code(s): 31780627
[2019-11-06] MEDS: MAGNESIUM SULFATE-D5W PMX 1 GM in DEXTROSE/WATER 1 100ML.BAG IVPB SCH ×2 (09:40→10:51)
--- NOTE | 2019-11-06 10:56 | P.PN ---
Subjective Progress Note Date: 11/06/19 On 11/02/2019 I'm seeing this patient in follow-up after the he came back from the operating room for GI bleeding. The patient has been hospital for upper GI bleed. The patient had a duodenal ulcer. He was bleeding actively and has required a total of 8 units of packed RBC and 1 unit of fresh frozen plasma and this was given to him preoperatively. Patient was taken to the operating room and he had expiratory laparotomy and he had oversewing of a duodenal ulcer. Postop the patient was extubated in the operating room. He was unable to breathe, and he desaturated and he had to be reintubated. This morning the patient continues to be intubated on a mechanical ventilator. Is on propofol which is running at 50 g per KG per minute. He remains on assist control mode of ventilation at the rate of 24 with an FiO2 of 75% and a PEEP of 5 and a tidal volume of 450. The blood gas showed a pH of 7.36 with a pCO2 of 39 and pO2 109. Chest x-ray showing bilateral pleural effusions most on the right in addition to atelectatic changes in the right lung base. He is intubated by #8 orotracheal tube. No further bouts of bleeding. BP is 105/33 through his Art[facility]. He is receiving IV fluids at the rate of 200 disease an hour and is on levo fed at the rate of 0.03 g per KG per minute. Urine output is in order of 15-20 mL an hour over the past 2 hours. The patient has a right IJ triple-lumen catheter. Cardiac rhythm is sinus. No significant tachycardia. Abdominal wound is clear. There is a IVELISSE drain in his right lower quadrant area. His current hemoglobin is at 8.8. intubated on mechanical ventilator. ] On today's evaluation of 11/03/2019, the patient is being seen in follow-up in his postop day #2 following a expiratory laparotomy, oversewing of a duodenal ulcer and control of the bleeding. Noted the patient was hemodynamically unstable and he has required a total of 8 units of packed RBC transfusion preoperatively. For now is postop day #2. Hemodynamically he is still a bit shaky. He still having lower urine output in the order of 20 mL an hour. Earlier this morning he developed a bout of hypotension, briefly placed on pressors and he subsequently improved. He is 7 kg positive in terms of his fluid balance and weight. He does have some increased edema lower extremity and the scrotum. Currently is on 200 mL an hour of normal saline. His CVP is at 5. His hemoglobin has dropped down to 7.1. No signs of any bleeding. He remains nothing by mouth. NG tube is in place. Output from the NG is in the order of minimal and output from the IVELISSE drain is in order of 1 8 mL over the past 24 hours. Abdomen is nondistended. He is afebrile. He remains on a mechanical ventilator. He is on assist control mode at the rate of 24 with a tidal volume of 450 and FiO2 was dropped down to 50% from a baseline of 60% and his PEEP is currently is at 8. He had a chest x-ray that showed improvement and atelectatic changes in lung bases and there is some small pleural effusion. No other medical issues otherwise. He is afebrile. He is nothing by mouth. No tachyc ardia. The rhythm is sinus. the wound site is dry clean and intact. On 11/04/2019 I'm seeing the patient for a follow-up. Patient is postop day #3 following laparotomy oversewing of a duodenal ulcer and control of a GI bleed. His postop day #3. He is sedated this morning with propofol which is running at 65 g per KG per minute. The patient is easily arousable. He'll be given a sedation holiday. He was dynamically, is doing well. Urine output is improved. He is on IV fluids at a rate of 100 mL an hour normal saline. He is also receiving TPN at the rate of 30 mL an hour. His propofol is running at 65 g and his triglyceride level is at 388. The patient is afebrile. His hemoglobin is stable at 7.9. No further episodes of GI bleed. NG tube is in place and output in the order of 100 mL overnight. IVELISSE drain is draining minimal amount in the order of 50 mL over the past 8 hours. He remains on assist control mode at the rate of 24 with a volume of 450 and FiO2 of 50% and a PEEP of 5. His blood gases from today showed a pH of 7.33 with a pCO2 of 36 and pO2 of 75. Chest x-r ay showed bilateral pleural effusions worse on the right. ET tube is in a good location. Clinically, the patient is in fluid overload and he has developed increased edema in his scrotum and his lower extremities. He was started on TPN for nutritional support yesterday and IV fluids have been cut down. Ultrasound the kidneys was done and there is no evidence of any hydronephrosis. Creatinine is at 2.8 is improved compared to yesterday. He does have a component of non- anion gap metabolic acidosis with a serum bicarbonate being advanced 17 and anion gap is at 7 for now. on 11/05/2019 I'm seeing the patient for a follow-up. On today's evaluation the patient is postop day #4 following daylaparotomy and oversewing of a duodenal ulcer. The patient remains on a combination of Zosyn and Diflucan. The this morning is sedated and the patient is still, comfortable. The plan for today was to consider giving him a sedation holiday and assess his readiness to wean as the patient was diuresed adequately over the past 24 hours while being on IV Lasix 40 mg every 8 hours. The patient producing approximately 4900 mL of urine output and he remains negative fluid balance. the patient is also on norepinephrine infusion which is running at 1 g per minute for blood pressure support. Creatinine today is at 2.8 which is stable compared to yesterday. In terms of his hemoglobin, the patient is stable at 8.7. He has not shown any signs of GI bleed. He is receiving PPN for nutritional support. He remains nothing by mouth oh for now. The blood gases from today shows a pH of 7.32with a pCO2 of 39 pO2 of 90. Serum bicarb is 19. He has minimal NG output. IVELISSE drain is still in place and output is 40 mL over the past 8 hours. He is afebrile. No other significant issues overnight. I was told by the family the patient has a component of PTSD which may potentially interfere without weaning process. on 11/06/2019 and seeing the patient for a follow-up. He is postop day #5 fo llowing exploratory laparotomy and oversewing of a duodenal ulcer. He is done well. He got diuresed. Subsequently volume status improved. The patient was taken off sedation and was extubated yesterday. He does have a underlying history of PTSD and he can be occasionally paranoid. He is awake and alert this morning. His communicating. He was able to take some sips of water. It final clearance for feeding will be discussed with general surgery. Otherwise his hemoglobin stable at 9.8. His creatinine is at 3. His producing more than 100 mL of urine output on an hourly basis. He is a negative fluid balance. Creatinine is stable at 3.0. Electrodes are all within normal limits. Cardiac rhythm is sinus. Surgical wound site is dry clean and intact. His peripheral edema in general is improving. The chest x-ray from today still showing bilateral pleural effusion right more than left. He is receiving PPN for nutritional support for the time being. Objective - Vital Signs Vital signs: Vital Signs Temp 98.4 F 11/06/19 04:00 Pulse 82 11/06/19 08:03 Resp 13 11/06/19 07:00 BP 142/67 11/06/19 07:00 Pulse Ox 96 11/06/19 07:00 Intake & Output 11/05/19 11/06/19 11/06/19 18:59 06:59 18:59 Intake Total 2027.844 920 70 Output Total 3405 2410 100 Balance -1377.156 -1490 -30 Weight 103.9 kg Intake: IV 830 920 70 Fluconazole in NaCl,Iso- 50 Osm 100 mg In Saline 1 50ml.bag @ 50 mls/hr IVPB DAILY [facility] Rx#:[id number] Mvi, Adult No.4 with Vit 480 780 60 K 10 ml Trace (Conc-1Ml/ Dose) 1 ml Sodium Acetate 30 meq Magnesium Sulfate gm 0.5 gm Calcium Gluconate 1 gm In Amino Acid 5%-D15w 1,000 ml @ 60 mls/hr IV .[id number] [facility] Rx#:[id number] Piperacillin-Tazobactam 3 100 .375 gm In Sodium Chloride 0.9% 100 ml @ 25 mls/hr IVPB Q8H [facility] Rx#: [id number] Sodium Chloride 0.9% 1, 200 140 10 000 ml @ 20 mls/hr IV . Q24H [facility] Rx#:[id number] Intake, IV Titration 1197.844 Amount Insulin Regular 100 unit 15.714 In Sodium Chloride 0.9% 100 ml @ Per Protocol IV .Q0M [facility] Rx#:[id number] Mvi, Adult No.4 with Vit 1037 K 10 ml Trace (Conc-1Ml/ Dose) 1 ml Sodium Acetate 30 meq Magnesium Sulfate gm 0.5 gm Calcium Gluconate 1 gm In Amino Acid 5%-D15w 1,000 ml @ 60 mls/hr IV .[id number] [facility] Rx#:[id number] Norepinephrine 8 mg In 6.945 Sodium Chloride 0.9% 250 ml @ 0.05 MCG/KG/MIN 9. 259 mls/hr IV .Q24H [facility] Rx#:[id number] Propofol 1,000 mg In 138.185 Empty Bag 1 bag @ Titrate IV .Q0M [facility] Rx#: [id number] Output: Gastric Drainage 0 Drainage 120 50 Right Lower Abdomen 120 50 Urine 3285 2360 100 Other: Voiding Method Indwelling Catheter Indwelling Catheter # Bowel Movements 1 ABP, PAP, CO, CI - Last Documented Arterial Blood Pressure 171/58 - Exam Gen. appearance, comfortable extubated currently on oxygen at 4 L Head exam was generally normal. There was no scleral icterus or corneal arcus. Mucous membranes were moist. Neck was supple and without jugular venous distension, thyromegaly, or carotid bruits. Carotids were easily palpable bilaterally. There was no adenopathy. Lungs were clear to auscultation and percussion, and with normal diaphragmatic excursion. No wheezes or rales were noted. Breath sounds are diminished in lung bases bilaterally. Cardiac exam revealed the PMI to be normally situated and sized. The rhythm was regular and no extrasystoles were noted during several minutes of auscultation. The first and second heart sounds were normal and physiologic splitting of the second heart sound was noted. There were no murmurs, rubs, clicks, or gallops. Abdomen is soft and the patient has a mid abdominal incision with a IVELISSE drain in the right lower quadrant. Bowel sounds are hypoactive. Neck tenderness. No rebound tenderness. No guarding. Examination of the extremities revealed easily palpable radial, femoral and pedal pulses. There was no cyanosis, clubbing or edema. Examination of the skin revealed no evidence of significant rashes, suspicious appearing nevi or other concerning lesions. Neurologically sedated, comfortable, awake and alert, occasionally paranoid with history of PTSD - Labs CBC & Chem 7: 11/06/19 04:20 11/06/19 04:20 Labs: Abnormal Lab Results - Last 24 Hours (Table) 11/05/19 11/05/19 11/05/19 Range/Units 11:55 13:06 14:09 RBC (4.30-5.90) m/uL Hgb (13.0-17.5) gm/dL Hct (39.0-53.0) % RDW (11.5-15.5) % ABG pH 7.32 L (7.35-7.45) ABG pO2 73 L (83-108) mmHg ABG HCO3 20 L (21-25) mmol/L Chloride (98-107) mmol/L BUN (9-20) mg/dL Creatinine (0.66-1.25) mg/dL Glucose (74-99) mg/dL POC Glucose (mg/dL) 147 H 101 H (75-99) mg/dL Calcium (8.4-10.2) mg/dL 11/05/19 11/05/19 11/05/19 Range/Units 16:32 20:07 23:58 RBC 3.30 L (4.30-5.90) m/uL Hgb 9.7 L (13.0-17.5) gm/dL Hct 30.0 L (39.0-53.0) % RDW 16.4 H (11.5-15.5) % ABG pH (7.35-7.45) ABG pO2 (83-108) mmHg ABG HCO3 (21-25) mmol/L Chloride (98-107) mmol/L BUN (9-20) mg/dL Creatinine (0.66-1.25) mg/dL Glucose (74-99) mg/dL POC Glucose (mg/dL) 145 H 206 H (75-99) mg/dL Calcium (8.4-10.2) mg/dL 11/06/19 11/06/19 11/06/19 Range/Units 04:20 04:20 04:30 RBC 3.32 L (4.30-5.90) m/uL Hgb 9.8 L (13.0-17.5) gm/dL Hct 30.3 L (39.0-53.0) % RDW 16.3 H (11.5-15.5) % ABG pH (7.35-7.45) ABG pO2 (83-108) mmHg ABG HCO3 (21-25) mmol/L Chloride 113 H (98-107) mmol/L BUN 47 H (9-20) mg/dL Creatinine 3.03 H (0.66-1.25) mg/dL Glucose 174 H (74-99) mg/dL POC Glucose (mg/dL) 190 H (75-99) mg/dL Calcium 7.9 L (8.4-10.2) mg/dL 11/06/19 Range/Units 08:55 RBC (4.30-5.90) m/uL Hgb (13.0-17.5) gm/dL Hct (39.0-53.0) % RDW (11.5-15.5) % ABG pH (7.35-7.45) ABG pO2 (83-108) mmHg ABG HCO3 (21-25) mmol/L Chloride (98-107) mmol/L BUN (9-20) mg/dL Creatinine (0.66-1.25) mg/dL Glucose (74-99) mg/dL POC Glucose (mg/dL) 205 H (75-99) mg/dL Calcium (8.4-10.2) mg/dL Microbiology - Last 24 Hours (Table) 11/05/19 05:00 Blood Culture - Preliminary Blood No Growth after 24 hours Assessment and Plan Plan: 1 acute upper GI bleed secondary to duodenal ulcer. The patient underwent exploratory laparotomy and oversewing of duodenal ulcer on today's postop day #5 2 blood loss anemia secondary to GI bleed, the hemoglobin i this stable at 9.8 3 acute hypoxic respiratory failure with development of bilateral pleural effusion and atelectatic changes in lung bases, extremities yesterday currently on 4 L in the chest exit is still showing bilateral pleural effusion right more than left 4 chronic kidney disease with component of an acute kidney injury in the creatinine is at 3.0 and the patient is producing adequate urine output while being diuresis with IV Lasix. 5 obstructive sleep apnea maintained on CPAP on outpatient basis 6 hyperlipidemia 7 hypothyroidism 8 hypertension history of 9 diabetes mellitus, with improvement of blood sugar while the patient being up to Solu-Medrol. 10 osteoarthritis 11 NPO status and the patient is on PPN 12 Hypertriglyceridemia Plan IV fluids to KVO PPN for nutritional support Obtain clearance for feeding by speech pathology and general surgery Hemoglobin is stable Renal function stable Drop the Lasix dose to once a day 40 mg IV Continue Zosyn and Diflucan as empiric antibiotic coverage IV Protonix Incentive spirometer. Increase mobility Watch for any signs of delirium The patient has history of PTSD and has some paranoid ideations We'll continue to follow Critically care evaluation, 35 minutes.
[2019-11-06] MEDS: FAT EMULSION 20% 250 ML IV SCH ×2 (12:00→13:04)
[2019-11-06 12:10] LABS: Glucose,Whole Blood 224 mg/dL (75-99)
[2019-11-06] MEDS: NOREPINEPHRINE 8 MG in SODIUM CHLORIDE 0.9% 250 ML IV SCH (14:59)
[2019-11-06 17:18] LABS: Glucose,Whole Blood 216 mg/dL (75-99)
[2019-11-06 18:50] LABS: Anisocytosis Slight; Basophils # (A) 0.1 k/uL (0-0.2); Basophils % (A) 1 %; Eosinophils # (A) 0.1 k/uL (0-0.7); Eosinophils % (A) 1 %; HCT 29.1 % (39.0-53.0); HGB 10.6 gm/dL (13.0-17.5); Lymphocytes % (A) 12 %; MCH 32.6 pg (25.0-35.0); MCHC 36.3 g/dL (31.0-37.0); MCV 89.8 fL (80.0-100.0); Mean Platelet Volume 7.7; Monocytes # (A) 0.4 k/uL (0-1.0); Monocytes % (A) 4 %; Neutrophils # (A) 6.9 k/uL (1.3-7.7); Neutrophils % (A) 80 %; Platelet Count 248 k/uL (150-450); RBC 3.25 m/uL (4.30-5.90); RDW 16.4 % (11.5-15.5); WBC 8.6 k/uL (3.8-10.6)
[2019-11-06 21:23] LABS: Glucose,Whole Blood 217 mg/dL (75-99)
[2019-11-06] MEDS: ATORVASTATIN 10 MG TAB PO SCH (21:58)
--- NOTE | 2019-11-06 23:04 | P.PN ---
Subjective Progress Note Date: 11/04/19 Principal diagnosis: GI bleed; status post EGD/colonoscopy Duodenal ulcer/ischemic colitis 10/30/2017 patient seen in follow-up in the intensive care unit; patient's family is at bedside and had multiple questions which were all addressed to her satisfaction; patient is status post EGD/colonoscopy which revealed a duodenal ulcer, that was not actively bleeding with a large anterior and clot in the second portion of the duodenum. Colonoscopy revealed ischemic colitis in the left colon with biopsies taken. However the procedure had to be aborted related to poor prep. Lab review shows hemoglobin is 6.8, patient has had 2 units of blood already, and he is receiving an additional unit of blood this morning. Hemodynamically patient is stable, receiving IV fluids, with 0.9 normal saline at a rate of 100 ML per hour. He remains on high flow oxygen, at 10 L and his pulse ox is 92- 93%. Complaints of chest pain, patient does have exertional dyspnea, today's chest x-ray has been reviewed, showing bibasilar atelectasis and bilateral pleural effusions. Patient is still getting IV fluids at a rate of 100, we will turn it was down, and give the patient a dose of IV Lasix, today's labs have been reviewed, showing white blood cell count 8.3, hemoglobin of 6.8, platelet count 293, sodium was 143, potassium was 5.4, chloride was 117, CO2 was 22, BUN was 53, creatinine was 2.94. No report of any further rectal bleeding; we will continue to monitor H&H closely and transfuse when needed 10/31/2019 patient is seen and evaluatedin follow-up in the intensive care unit. He is awake and alert in no acute distress. His hemoglobin was 6.6 earlier this morning. He is receiving his fourth unit of packed red blood cells in total this admission. He did undergo an EGD this morning and was found to have a large adherent clot along the duodenal sweep which was removed. A deep ulcerati on with active bleeding was visible. Epinephrine and Endo Clip placement obtained good hemostasis. There are large clots in the stomach. NG tube remains in place. He remains on Protonix 40 mg every 12 hours. Surgical consult was placed. He is currently afebrile. Hemodynamically stable. He is on 10 L high flow nasal cannula to maintain O2 saturations in the mid 90s. 0.9 normal saline at 50 MLS per hour. Remains on Unasyn. Chest x-ray shows some evidence of fluid volume overload and small effusions. White count 5.1. Creatinine 2.77. patient's family is at bedside and on inquiring about transferring the patient to [place]; did advise and son that patient is unstable at this time and family will have to discuss this with case management on Saturday11/01/2019 Patient is seen and evaluated in the room at bedside; patient has been having profuse rectal bleeding; patient underwent EGD which showed bleeding duodenal ulcer, Endo Clip was applied; patient had an episode of dark stools during the night but started bleeding profusely this afternoon; stat H&H is done which shows hemoglobin at 6.0; patient has been started on IV Levophed to maintain blood pressure; patient was evaluated by GI, ICU team and surgery and was recommended transferred to a tertiary care center; [facility] was consulted and transfer arrangements to [facility] surgical ICU were made; patient was deemed unstable for transfer and is taken to OR by the surgical team. 11/02/2019 patient wasadmitted to the hospital with upper GI bleed and was found have duodenal ulcer. due to active bleeding patient was taken to operating room for exploratory laparotomy. Postoperatively patient was intubated. Patient is currently remained on mechanical ventilator. chest x-ray showed bilateral pleural effusions mainly right side with atelectatic changes. Patient is on Levothroid drip and his IV FLUIDS. HEMOGLOBIN8.8, potassium 5.7, BUN/creatinine 46/ 2.89 11/03/2019 Patient iscurrentlyremained on mechanical ventilator. Hemoglobin 7.1 today. Patient initially received 8 units of PRBC transfusion preoperatively.Patient is still requiring pressor support on and off. Patient is currently on NG tube. TPN is being started today. chest x-ray showed improvement of atelectatic changes in the lung bases and small pleural effusion. patient has been afebrile. No abdominal distention. Surgical wound is intact. No leukocytosis. bUN/creatinine 43 x 3.13 11/04/2019 Patient is currently on mechanical ventilator. Postoperative day 3. Status post laparotomy and oversewing of duodenal ulcer. patient is currently on TPN. patient is on sedation holiday and is easily arousable. Hemoglobin is fairly stable at 7.9 today. No further episodes of GI bleed.Chest x-ray showed bilateral pleural effusions worse on the right. Ultrasound of the kidneys showed no evidence ofhydronephrosis. Creatinine level isimproving to 2.8 today.Pulmonary and GI is following. current medications reviewed. Active Medications Albuterol/Ipratropium (Duoneb 0.5 Mg-3 Mg/3 Ml Soln) 3 ml INHALATION RT-QID [facility] Last Admin: 11/03/19 21:33 Dose: 3 ml Documented by: Atorvastatin Calcium (Lipitor) 10 mg PO HS [facility] Last Admin: 11/03/19 20:07 Dose: Not Given Documented by: Budesonide (Pulmicort) 1 mg INHALATION RT-BID [facility] Last Admin: 11/03/19 21:33 Dose: 1 mg Documented by: Chlorhexidine Gluconate (Peridex) 15 ml MUCOUS MEM BID [facility] Last Admin: 11/03/19 20:37 Dose: 15 ml Documented by: Formoterol Fumarate (Perforomist) 20 mcg INHALATION RT-BID [facility] Last Admin: 11/03/19 21:33 Dose: 20 mcg Documented by: Hydromorphone HCl (Dilaudid) 1 mg IVP Q2HR PRN PRN Reason: Pain Hydromorphone HCl (Dilaudid) 0.5 mg IVP Q2H PRN PRN Reason: Pain Last Admin: 11/03/19 22:13 Dose: 0.5 mg Documented by: Sodium Chloride (Saline 0.9%) 1,000 mls @ 100 mls/hr IV .Q10H [facility] Last Admin: 11/03/19 19:42 Dose: 100 mls/hr Documented by: Norepinephrine Bitartrate 8 mg (/ Sodium Chloride) 258 mls @ 9.259 mls/hr IV .Q24H [facility]; Protocol Last Admin: 11/03/19 08:35 Dose: 0.05 mcg/kg/min, 9.259 mls/hr Documented by: Propofol 1,000 mg/ IV Solution 100 mls @ 0 mls/hr IV .Q0M [facility]; Protocol Last Admin: 11/03/19 23:01 Dose: 65 mcg/kg/min, 37.869 mls/hr Documented by: Fluconazole/Sodium Chloride (100 mg/ IV Solution) 50 mls @ 50 mls/hr IVPB DAILY [facility] Last Admin: 11/03/19 09:03 Dose: 50 mls/hr Documented by: Piperacillin Sod/Tazobactam (Sod 3.375 gm/ Sodium Chloride) 100 mls @ 25 mls/hr IVPB Q8H [facility] Last Admin: 11/03/19 20:04 Dose: 25 mls/hr Documented by: Metronidazole 500 mg/ IV (Solution) 100 mls @ 100 mls/hr IVPB Q8HR [facility] Last Admin: 11/03/19 23:34 Dose: 100 mls/hr Documented by: Parenteral Vitamin Supplement 10 ml/ Chromium/Copper/Manganese/Seleni/Zn 1 ml/Sodium Acetate 30 meq/Magnesium Sulfate 1 gm/Calcium Gluconate 1 gm/ Amino Acids/Dextrose 1,038 mls @ 30 mls/hr IV .Q24H [facility] Stop: 11/04/19 12:29 Last Admin: 11/03/19 14:04 Dose: 30 mls/hr Documented by: Parenteral Vitamin Supplement 10 ml/ Chromium/Copper/Manganese/Seleni/Zn 1 ml/Sodium Acetate 30 meq/Magnesium Sulfate 0.5 gm/Calcium Gluconate 1 gm/ Amino Acids/Dextrose 1,037 mls @ 60 mls/hr IV .[id number] [facility] Insulin Aspart (Novolog) 0 unit SQ Q6H [facility]; Protocol Last Admin: 11/03/19 23:34 Dose: 5 unit Documented by: Levothyroxine Sodium (Synthroid) 125 mcg PO DAILY@0630 [facility] Last Admin: 11/03/19 05:43 Dose: Not Given Documented by: Levothyroxine Sodium (Synthroid Ivp) 75 mcg IV DAILY [facility] Last Admin: 11/03/19 09:05 Dose: 75 mcg Documented by: Lidocaine (Lidoderm) 1 patch TOPICAL DAILY [facility] Last Admin: 11/03/19 09:05 Dose: 1 patch Documented by: Linagliptin (Tradjenta) 5 mg PO DAILY [facility] Last Admin: 11/03/19 09:06 Dose: Not Given Documented by: Liothyronine Sodium (Cytomel) 5 mcg PO DAILY [facility] Last Admin: 11/03/19 09:06 Dose: Not Given Documented by: Methylprednisolone Sodium Succinate (Solu-Medrol) 40 mg IV Q8HR [facility] Last Admin: 11/03/19 23:34 Dose: 40 mg Documented by: Metoprolol Tartrate (Lopressor) 50 mg PO BID [facility] Last Admin: 11/03/19 20:07 Dose: Not Given Documented by: Naloxone HCl (Narcan) 0.2 mg IV Q2M PRN PRN Reason: Opioid Reversal Nicotine (Habitrol 14mg/24hr Patch) 1 patch TRANSDERM DAILY [facility] Last Admin: 11/03/19 09:06 Dose: 1 patch Documented by: Pantoprazole Sodium (Protonix) 40 mg IV BID [facility] Last Admin: 11/03/19 20:36 Dose: 40 mg Documented by: Pregabalin (Lyrica) 50 mg PO BID [facility] Last Admin: 11/03/19 20:07 Dose: Not Given Documented by: Objective - Vital Signs Vital signs: Vital Signs Temp 97.3 F L 11/04/19 20:00 Pulse 63 11/04/19 20:00 Resp 24 11/04/19 20:00 BP 129/60 11/04/19 19:01 Pulse Ox 95 11/04/19 20:00 Intake & Output 11/04/19 11/04/19 11/05/19 06:59 18:59 06:59 Intake Total 2101.042 1901.312 156.327 Output Total 1220 1980 215 Balance 881.042 -78.688 -58.673 Weight 110 kg Intake: IV 1830 1360 55 Fluconazole in NaCl,Iso- 150 Osm 100 mg In Saline 1 50ml.bag @ 50 mls/hr IVPB DAILY [facility] Rx#:[id number] Mvi, Adult No.4 with Vit 330 390 30 K 10 ml Trace (Conc-1Ml/ Dose) 1 ml Sodium Acetate 30 meq Magnesium Sulfate gm 1 gm Calcium Gluconate 1 gm In Amino Acid 5%-D15w 1,000 ml @ 30 mls/hr IV .Q24H [facility] Rx #:[id number] Piperacillin-Tazobactam 3 200 200 .375 gm In Sodium Chloride 0.9% 100 ml @ 25 mls/hr IVPB Q8H [facility] Rx#: [id number] Sodium Chloride 0.9% 1, 1200 420 25 000 ml @ 20 mls/hr IV . Q24H [facility] Rx#:[id number] metroNIDAZOLE-NS PMX 500 100 200 mg In Saline 1 100ml.bag @ 100 mls/hr IVPB Q8HR [facility] Rx#:[id number] Intake, IV Titration 271.042 541.312 101.327 Amount Norepinephrine 8 mg In 258 26.851 Sodium Chloride 0.9% 250 ml @ 0.05 MCG/KG/MIN 9. 259 mls/hr IV .Q24H [facility] Rx#:[id number] Propofol 1,000 mg In 271.042 283.312 74.476 Empty Bag 1 bag @ Titrate IV .Q0M [facility] Rx#: [id number] Output: Gastric Drainage 350 50 Drainage 170 125 90 Right Lower Abdomen 170 125 90 Urine 700 1805 125 Other: Voiding Method Indwelling Catheter Indwelling Catheter Indwelling Catheter ABP, PAP, CO, CI - Last Documented Arterial Blood Pressure 133/42 - Exam PHYSICAL EXAMINATION: patient is currently sedated and on mechanical ventilator... HEENT: Normocephalic. Neck is supple. Pupils reactive. Nostrils clear. Oral cavity is moist. Ears reveal no drainage. Neck reveals no JVD, carotid bruits, or thyromegaly. CHEST EXAMINATION: Trachea is central. Symmetrical expansion. bibasilar diminished air entry. No wheezing.. CARDIAC: Normal S1, S2 with no gallops. No murmurs ABDOMEN: Soft. Bowel sounds diminished. Surgical wound is intact and clean.. No organomegaly. No abdominal bruits. Extremities: reveal no edema. No clubbing or cyanosis Neurologically patient is currently sedated and on mechanical ventilator.. No cross focal deficits noted Skin: No rash or skin lesions. Psychiatric: could not be assessed at this time. Musculoskeletal: No joint swelling or deformity. - Labs CBC & Chem 7: 11/06/19 18:34 11/06/19 04:20 Labs: Abnormal Lab Results - Last 24 Hours (Table) 11/03/19 11/03/19 11/04/19 Range/Units 23:29 23:51 04:32 RBC (4.30-5.90) m/uL Hgb (13.0-17.5) gm/dL Hct (39.0-53.0) % RDW (11.5-15.5) % Neutrophils # (1.3-7.7) k/uL Lymphocytes # (1.0-4.8) k/uL ABG pH 7.33 L (7.35-7.45) ABG pO2 75 L (83-108) mmHg ABG HCO3 19 L (21-25) mmol/L Chloride (98-107) mmol/L Carbon Dioxide (22-30) mmol/L BUN (9-20) mg/dL Creatinine (0.66-1.25) mg/dL Glucose (74-99) mg/dL POC Glucose (mg/dL) 311 H 300 H (75-99) mg/dL Calcium (8.4-10.2) mg/dL Phosphorus (2.5-4.5) mg/dL Triglycerides (<150) mg/dL 11/04/19 11/04/19 11/04/19 Range/Units 05:00 05:00 06:00 RBC 2.61 L (4.30-5.90) m/uL Hgb 7.9 L (13.0-17.5) gm/dL Hct 23.6 L (39.0-53.0) % RDW 16.1 H (11.5-15.5) % Neutrophils # 7.8 H (1.3-7.7) k/uL Lymphocytes # 0.4 L (1.0-4.8) k/uL ABG pH (7.35-7.45) ABG pO2 (83-108) mmHg ABG HCO3 (21-25) mmol/L Chloride 118 H (98-107) mmol/L Carbon Dioxide 17 L (22-30) mmol/L BUN 43 H (9-20) mg/dL Creatinine 2.80 H (0.66-1.25) mg/dL Glucose 279 H (74-99) mg/dL POC Glucose (mg/dL) 314 H (75-99) mg/dL Calcium 7.1 L (8.4-10.2) mg/dL Phosphorus 5.0 H (2.5-4.5) mg/dL Triglycerides 368 H (<150) mg/dL 11/04/19 11/04/19 11/04/19 Range/Units 10:08 11:47 16:42 RBC (4.30-5.90) m/uL Hgb (13.0-17.5) gm/dL Hct (39.0-53.0) % RDW (11.5-15.5) % Neutrophils # (1.3-7.7) k/uL Lymphocytes # (1.0-4.8) k/uL ABG pH (7.35-7.45) ABG pO2 (83-108) mmHg ABG HCO3 (21-25) mmol/L Chloride (98-107) mmol/L Carbon Dioxide (22-30) mmol/L BUN (9-20) mg/dL Creatinine (0.66-1.25) mg/dL Glucose (74-99) mg/dL POC Glucose (mg/dL) 336 H 334 H 339 H (75-99) mg/dL Calcium (8.4-10.2) mg/dL Phosphorus (2.5-4.5) mg/dL Triglycerides (<150) mg/dL 11/04/19 11/04/19 11/04/19 Range/Units 18:00 19:01 19:53 RBC (4.30-5.90) m/uL Hgb (13.0-17.5) gm/dL Hct (39.0-53.0) % RDW (11.5-15.5) % Neutrophils # (1.3-7.7) k/uL Lymphocytes # (1.0-4.8) k/uL ABG pH (7.35-7.45) ABG pO2 (83-108) mmHg ABG HCO3 (21-25) mmol/L Chloride (98-107) mmol/L Carbon Dioxide (22-30) mmol/L BUN (9-20) mg/dL Creatinine (0.66-1.25) mg/dL Glucose (74-99) mg/dL POC Glucose (mg/dL) 302 H 300 H 278 H (75-99) mg/dL Calcium (8.4-10.2) mg/dL Phosphorus (2.5-4.5) mg/dL Triglycerides (<150) mg/dL Microbiology - Last 24 Hours (Table) 11/02/19 01:15 Gram Stain - Final Sputum Sputum Culture - Final Natalie sp,not albicans/galbr Assessment and Plan Assessment: Acute blood loss anemia secondary to duodenal ulcer. Status post exploratory laparotomy and oversewing of duodenal ulcer on 11 01 2019 - Patient is status post EGD/colonoscopy which revealed duodenal ulcer without any active bleeding with the large interior clot in the second portion of duodenum; colonoscopy revealed ischemic colitis and left colon. Patient is presently on Protonix IV twice a day -cute hypoxic respiratory failure with bilateral pleural effusion and atelectasis. Currently on mechanical ventilator. -coronary artery disease continue with metoprolol hold off rest of the blood pressure medications and aspirin because of GI bleed -Hypertension patient is presently hypotensive secondary to GI bleed holding off on lisinopril, hydralazine. -Renal failure: I do not have any previous creatinine available patient denied any history of chronic kidney disease, patient may have acute renal failure from prerenal azotemia from acute GI bleed. 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 -Continued nicotine use: Counseling was provided for above-mentioned chronic medical problems patient will be resumed on appropriate home medications. -DVT prophylaxis with SCDs due to GI leed plan: patient will be continued on IV hydration and wean off Levophed. on mechanical ventilator. Continue with empiric antibiotics in the form of Zosyn and Flagyl.monitor H&H an dblood transfusion as needed. continue with IV Protonix. pulmonary and General surgery is following.prognosis is guarded at this time. Time with Patient: Greater than 30
--- NOTE | 2019-11-06 23:08 | P.PN ---
Subjective Progress Note Date: 11/05/19 Principal diagnosis: GI bleed; status post EGD/colonoscopy Duodenal ulcer/ischemic colitis 10/30/2017 patient seen in follow-up in the intensive care unit; patient's family is at bedside and had multiple questions which were all addressed to her satisfaction; patient is status post EGD/colonoscopy which revealed a duodenal ulcer, that was not actively bleeding with a large anterior and clot in the second portion of the duodenum. Colonoscopy revealed ischemic colitis in the left colon with biopsies taken. However the procedure had to be aborted related to poor prep. Lab review shows hemoglobin is 6.8, patient has had 2 units of blood already, and he is receiving an additional unit of blood this morning. Hemodynamically patient is stable, receiving IV fluids, with 0.9 normal saline at a rate of 100 ML per hour. He remains on high flow oxygen, at 10 L and his pulse ox is 92- 93%. Complaints of chest pain, patient does have exertional dyspnea, today's chest x-ray has been reviewed, showing bibasilar atelectasis and bilateral pleural effusions. Patient is still getting IV fluids at a rate of 100, we will turn it was down, and give the patient a dose of IV Lasix, today's labs have been reviewed, showing white blood cell count 8.3, hemoglobin of 6.8, platelet count 293, sodium was 143, potassium was 5.4, chloride was 117, CO2 was 22, BUN was 53, creatinine was 2.94. No report of any further rectal bleeding; we will continue to monitor H&H closely and transfuse when needed 10/31/2019 patient is seen and evaluatedin follow-up in the intensive care unit. He is awake and alert in no acute distress. His hemoglobin was 6.6 earlier this morning. He is receiving his fourth unit of packed red blood cells in total this admission. He did undergo an EGD this morning and was found to have a large adherent clot along the duodenal sweep which was removed. A deep ulcerati on with active bleeding was visible. Epinephrine and Endo Clip placement obtained good hemostasis. There are large clots in the stomach. NG tube remains in place. He remains on Protonix 40 mg every 12 hours. Surgical consult was placed. He is currently afebrile. Hemodynamically stable. He is on 10 L high flow nasal cannula to maintain O2 saturations in the mid 90s. 0.9 normal saline at 50 MLS per hour. Remains on Unasyn. Chest x-ray shows some evidence of fluid volume overload and small effusions. White count 5.1. Creatinine 2.77. patient's family is at bedside and on inquiring about transferring the patient to [place]; did advise and son that patient is unstable at this time and family will have to discuss this with case management on Saturday11/01/2019 Patient is seen and evaluated in the room at bedside; patient has been having profuse rectal bleeding; patient underwent EGD which showed bleeding duodenal ulcer, Endo Clip was applied; patient had an episode of dark stools during the night but started bleeding profusely this afternoon; stat H&H is done which shows hemoglobin at 6.0; patient has been started on IV Levophed to maintain blood pressure; patient was evaluated by GI, ICU team and surgery and was recommended transferred to a tertiary care center; [facility] was consulted and transfer arrangements to [facility] surgical ICU were made; patient was deemed unstable for transfer and is taken to OR by the surgical team. 11/02/2019 patient wasadmitted to the hospital with upper GI bleed and was found have duodenal ulcer. due to active bleeding patient was taken to operating room for exploratory laparotomy. Postoperatively patient was intubated. Patient is currently remained on mechanical ventilator. chest x-ray showed bilateral pleural effusions mainly right side with atelectatic changes. Patient is on Levothroid drip and his IV FLUIDS. HEMOGLOBIN8.8, potassium 5.7, BUN/creatinine 46/ 2.89 11/03/2019 Patient iscurrentlyremained on mechanical ventilator. Hemoglobin 7.1 today. Patient initially received 8 units of PRBC transfusion preoperatively.Patient is still requiring pressor support on and off. Patient is currently on NG tube. TPN is being started today. chest x-ray showed improvement of atelectatic changes in the lung bases and small pleural effusion. patient has been afebrile. No abdominal distention. Surgical wound is intact. No leukocytosis. bUN/creatinine 43 x 3.13 11/04/2019 Patient is currently on mechanical ventilator. Postoperative day 3. Status post laparotomy and oversewing of duodenal ulcer. patient is currently on TPN. patient is on sedation holiday and is easily arousable. Hemoglobin is fairly stable at 7.9 today. No further episodes of GI bleed.Chest x-ray showed bilateral pleural effusions worse on the right. Ultrasound of the kidneys showed no evidence ofhydronephrosis. Creatinine level isimproving to 2.8 today.Pulmonary and GI is following. 11 05 2019 patient is postoperative day 4, status post laparotomy and oversewing of the urinalysis. Hemoglobin did improve to 8.7 today.patient is being continued on IV Lasix due to pleural effusion. Currently on norepinephrinewhich is being weaned off slowly. Patient is stable at creatinine level II.8.no signs of active GI bleed. IVELISSE drain is in place. Patient is being prepared for weaning prior.patient has been afebrile.Chest x- ray showedoverall stable findingssmall to moderate size right greater than left pleural effus with mild central vascular congestion. current medications reviewed. Active Medications Albuterol/Ipratropium (Duoneb 0.5 Mg-3 Mg/3 Ml Soln) 3 ml INHALATION RT-QID [facility] Last Admin: 11/03/19 21:33 Dose: 3 ml Documented by: Atorvastatin Calcium (Lipitor) 10 mg PO HS [facility] Last Admin: 11/03/19 20:07 Dose: Not Given Documented by: Budesonide (Pulmicort) 1 mg INHALATION RT-BID [facility] Last Admin: 11/03/19 21:33 Dose: 1 mg Documented by: Chlorhexidine Gluconate (Peridex) 15 ml MUCOUS MEM BID [facility] Last Admin: 11/03/19 20:37 Dose: 15 ml Documented by: Formoterol Fumarate (Perforomist) 20 mcg INHALATION RT-BID [facility] Last Admin: 11/03/19 21:33 Dose: 20 mcg Documented by: Hydromorphone HCl (Dilaudid) 1 mg IVP Q2HR PRN PRN Reason: Pain Hydromorphone HCl (Dilaudid) 0.5 mg IVP Q2H PRN PRN Reason: Pain Last Admin: 11/03/19 22:13 Dose: 0.5 mg Documented by: Sodium Chloride (Saline 0.9%) 1,000 mls @ 100 mls/hr IV .Q10H [facility] Last Admin: 11/03/19 19:42 Dose: 100 mls/hr Documented by: Norepinephrine Bitartrate 8 mg (/ Sodium Chloride) 258 mls @ 9.259 mls/hr IV .Q24H [facility]; Protocol Last Admin: 11/03/19 08:35 Dose: 0.05 mcg/kg/min, 9.259 mls/hr Documented by: Propofol 1,000 mg/ IV Solution 100 mls @ 0 mls/hr IV .Q0M [facility]; Protocol Last Admin: 11/03/19 23:01 Dose: 65 mcg/kg/min, 37.869 mls/hr Documented by: Fluconazole/Sodium Chloride (100 mg/ IV Solution) 50 mls @ 50 mls/hr IVPB DAILY [facility] Last Admin: 11/03/19 09:03 Dose: 50 mls/hr Documented by: Piperacillin Sod/Tazobactam (Sod 3.375 gm/ Sodium Chloride) 100 mls @ 25 mls/hr IVPB Q8H [facility] Last Admin: 11/03/19 20:04 Dose: 25 mls/hr Documented by: Metronidazole 500 mg/ IV (Solution) 100 mls @ 100 mls/hr IVPB Q8HR [facility] Last Admin: 11/03/19 23:34 Dose: 100 mls/hr Documented by: Parenteral Vitamin Supplement 10 ml/ Chromium/Copper/Manganese/Seleni/Zn 1 ml/Sodium Acetate 30 meq/Magnesium Sulfate 1 gm/Calcium Gluconate 1 gm/ Amino Acids/Dextrose 1,038 mls @ 30 mls/hr IV .Q24H [facility] Stop: 11/04/19 12:29 Last Admin: 11/03/19 14:04 Dose: 30 mls/hr Documented by: Parenteral Vitamin Supplement 10 ml/ Chromium/Copper/Manganese/Seleni/Zn 1 ml/So dium Acetate 30 meq/Magnesium Sulfate 0.5 gm/Calcium Gluconate 1 gm/ Amino Acids/Dextrose 1,037 mls @ 60 mls/hr IV .[id number] [facility] Insulin Aspart (Novolog) 0 unit SQ Q6H [facility]; Protocol Last Admin: 11/03/19 23:34 Dose: 5 unit Documented by: Levothyroxine Sodium (Synthroid) 125 mcg PO DAILY@0630 [facility] Last Admin: 11/03/19 05:43 Dose: Not Given Documented by: Levothyroxine Sodium (Synthroid Ivp) 75 mcg IV DAILY [facility] Last Admin: 11/03/19 09:05 Dose: 75 mcg Documented by: Lidocaine (Lidoderm) 1 patch TOPICAL DAILY [facility] Last Admin: 11/03/19 09:05 Dose: 1 patch Documented by: Linagliptin (Tradjenta) 5 mg PO DAILY [facility] Last Admin: 11/03/19 09:06 Dose: Not Given Documented by: Liothyronine Sodium (Cytomel) 5 mcg PO DAILY [facility] Last Admin: 11/03/19 09:06 Dose: Not Given Documented by: Methylprednisolone Sodium Succinate (Solu-Medrol) 40 mg IV Q8HR [facility] Last Admin: 11/03/19 23:34 Dose: 40 mg Documented by: Metoprolol Tartrate (Lopressor) 50 mg PO BID [facility] Last Admin: 11/03/19 20:07 Dose: Not Given Documented by: Naloxone HCl (Narcan) 0.2 mg IV Q2M PRN PRN Reason: Opioid Reversal Nicotine (Habitrol 14mg/24hr Patch) 1 patch TRANSDERM DAILY [facility] Last Admin: 11/03/19 09:06 Dose: 1 patch Documented by: Pantoprazole Sodium (Protonix) 40 mg IV BID [facility] Last Admin: 11/03/19 20:36 Dose: 40 mg Documented by: Pregabalin (Lyrica) 50 mg PO BID [facility] Last Admin: 11/03/19 20:07 Dose: Not Given Documented by: Objective - Vital Signs Vital signs: Vital Signs Temp 97.8 F 11/05/19 20:00 Pulse 89 11/05/19 21:00 Resp 12 11/05/19 21:00 BP 154/67 11/05/19 21:00 Pulse Ox 93 L 11/05/19 21:00 Intake & Output 11/05/19 11/05/19 11/06/19 06:59 18:59 06:59 Intake Total 5274.238 9976.844 220 Output Total 3005 3405 535 Balance -1357.264 -1377.156 -315 Weight 104.8 kg Intake: IV 1165 830 220 Fluconazole in NaCl,Iso- 50 Osm 100 mg In Saline 1 50ml.bag @ 50 mls/hr IVPB DAILY [facility] Rx#:[id number] Mvi, Adult No.4 with Vit 480 180 K 10 ml Trace (Conc-1Ml/ Dose) 1 ml Sodium Acetate 30 meq Magnesium Sulfate gm 0.5 gm Calcium Gluconate 1 gm In Amino Acid 5%-D15w 1,000 ml @ 60 mls/hr IV .[id number] [facility] Rx#:[id number] Mvi, Adult No.4 with Vit 690 K 10 ml Trace (Conc-1Ml/ Dose) 1 ml Sodium Acetate 30 meq Magnesium Sulfate gm 1 gm Calcium Gluconate 1 gm In Amino Acid 5%-D15w 1,000 ml @ 30 mls/hr IV .Q24H [facility] Rx #:[id number] Piperacillin-Tazobactam 3 100 100 .375 gm In Sodium Chloride 0.9% 100 ml @ 25 mls/hr IVPB Q8H [facility] Rx#: [id number] Sodium Chloride 0.9% 1, 275 200 40 000 ml @ 20 mls/hr IV . Q24H [facility] Rx#:[id number] metroNIDAZOLE-NS PMX 500 100 mg In Saline 1 100ml.bag @ 100 mls/hr IVPB Q8HR [facility] Rx#:[id number] Intake, IV Titration 403.383 1755.844 Amount Insulin Regular 100 unit 42.335 15.714 In Sodium Chloride 0.9% 100 ml @ Per Protocol IV .Q0M [facility] Rx#:[id number] Mvi, Adult No.4 with Vit 1037 K 10 ml Trace (Conc-1Ml/ Dose) 1 ml Sodium Acetate 30 meq Magnesium Sulfate gm 0.5 gm Calcium Gluconate 1 gm In Amino Acid 5%-D15w 1,000 ml @ 60 mls/hr IV .[id number] [facility] Rx#:[id number] Norepinephrine 8 mg In 40.401 6.945 Sodium Chloride 0.9% 250 ml @ 0.05 MCG/KG/MIN 9. 259 mls/hr IV .Q24H [facility] Rx#:[id number] Propofol 1,000 mg In 400.000 138.185 Empty Bag 1 bag @ Titrate IV .Q0M [facility] Rx#: [id number] Output: Gastric Drainage 100 0 Drainage 300 120 Right Lower Abdomen 300 120 Urine 2605 3285 535 Other: Voiding Method Indwelling Catheter Indwelling Catheter # Bowel Movements 1 ABP, PAP, CO, CI - Last Documented Arterial Blood Pressure 126/43 - Exam PHYSICAL EXAMINATION: patient is currently sedated and on mechanical ventilator... HEENT: Normocephalic. Neck is supple. Pupils reactive. Nostrils clear. Oral cavity is moist. Ears reveal no drainage. Neck reveals no JVD, carotid bruits, or thyromegaly. CHEST EXAMINATION: Trachea is central. Symmetrical expansion. bibasilar diminished air entry. bibasilar crackles. No wheezing.. CARDIAC: Normal S1, S2 with no gallops. No murmurs ABDOMEN: Soft. Bowel sounds diminished. Surgical wound is intact and clean.. No organomegaly. No abdominal bruits. Extremities: reveal no edema. No clubbing or cyanosis Neurologically patient is currently sedated and on mechanical ventilator.. Nocross focal deficits noted Skin: No rash or skin lesions. Psychiatric: could not be assessed at this time. Musculoskeletal: No joint swelling or deformity. - Labs CBC & Chem 7: 11/06/19 18:34 11/06/19 04:20 Labs: Abnormal Lab Results - Last 24 Hours (Table) 11/04/19 11/05/19 11/05/19 Range/Units 22:54 00:13 00:58 WBC (3.8-10.6) k/uL RBC (4.30-5.90) m/uL Hgb (13.0-17.5) gm/dL Hct (39.0-53.0) % RDW (11.5-15.5) % ABG pH (7.35-7.45) ABG pO2 (83-108) mmHg ABG HCO3 (21-25) mmol/L ABG O2 Saturation (94-97) % Chloride (98-107) mmol/L Carbon Dioxide (22-30) mmol/L BUN (9-20) mg/dL Creatinine (0.66-1.25) mg/dL Glucose (74-99) mg/dL POC Glucose (mg/dL) 247 H 186 H 206 H (75-99) mg/dL Calcium (8.4-10.2) mg/dL Phosphorus (2.5-4.5) mg/dL 11/05/19 11/05/19 11/05/19 Range/Units 02:28 03:04 04:13 WBC (3.8-10.6) k/uL RBC (4.30-5.90) m/uL Hgb (13.0-17.5) gm/dL Hct (39.0-53.0) % RDW (11.5-15.5) % ABG pH (7.35-7.45) ABG pO2 (83-108) mmHg ABG HCO3 (21-25) mmol/L ABG O2 Saturation (94-97) % Chloride (98-107) mmol/L Carbon Dioxide (22-30) mmol/L BUN (9-20) mg/dL Creatinine (0.66-1.25) mg/dL Glucose (74-99) mg/dL POC Glucose (mg/dL) 152 H 156 H 141 H (75-99) mg/dL Calcium (8.4-10.2) mg/dL Phosphorus (2.5-4.5) mg/dL 11/05/19 11/05/19 11/05/19 Range/Units 04:15 04:15 05:19 WBC 12.3 H (3.8-10.6) k/uL RBC 2.80 L (4.30-5.90) m/uL Hgb 8.7 L (13.0-17.5) gm/dL Hct 25.6 L (39.0-53.0) % RDW 16.2 H (11.5-15.5) % ABG pH 7.32 L (7.35-7.45) ABG pO2 (83-108) mmHg ABG HCO3 20 L (21-25) mmol/L ABG O2 Saturation 97.7 H (94-97) % Chloride 117 H (98-107) mmol/L Carbon Dioxide 19 L (22-30) mmol/L BUN 46 H (9-20) mg/dL Creatinine 2.93 H (0.66-1.25) mg/dL Glucose 125 H (74-99) mg/dL POC Glucose (mg/dL) (75-99) mg/dL Calcium 7.5 L (8.4-10.2) mg/dL Phosphorus 5.1 H (2.5-4.5) mg/dL 11/05/19 11/05/19 11/05/19 Range/Units 05:32 06:14 07:08 WBC (3.8-10.6) k/uL RBC (4.30-5.90) m/uL Hgb (13.0-17.5) gm/dL Hct (39.0-53.0) % RDW (11.5-15.5) % ABG pH (7.35-7.45) ABG pO2 (83-108) mmHg ABG HCO3 (21-25) mmol/L ABG O2 Saturation (94-97) % Chloride (98-107) mmol/L Carbon Dioxide (22-30) mmol/L BUN (9-20) mg/dL Creatinine (0.66-1.25) mg/dL Glucose (74-99) mg/dL POC Glucose (mg/dL) 142 H 150 H 142 H (75-99) mg/dL Calcium (8.4-10.2) mg/dL Phosphorus (2.5-4.5) mg/dL 11/05/19 11/05/19 11/05/19 Range/Units 07:53 09:58 11:55 WBC (3.8-10.6) k/uL RBC (4.30-5.90) m/uL Hgb (13.0-17.5) gm/dL Hct (39.0-53.0) % RDW (11.5-15.5) % ABG pH (7.35-7.45) ABG pO2 (83-108) mmHg ABG HCO3 (21-25) mmol/L ABG O2 Saturation (94-97) % Chloride (98-107) mmol/L Carbon Dioxide (22-30) mmol/L BUN (9-20) mg/dL Creatinine (0.66-1.25) mg/dL Glucose (74-99) mg/dL POC Glucose (mg/dL) 141 H 147 H 147 H (75-99) mg/dL Calcium (8.4-10.2) mg/dL Phosphorus (2.5-4.5) mg/dL 11/05/19 11/05/19 11/05/19 Range/Units 13:06 14:09 16:32 WBC (3.8-10.6) k/uL RBC 3.30 L (4.30-5.90) m/uL Hgb 9.7 L (13.0-17.5) gm/dL Hct 30.0 L (39.0-53.0) % RDW 16.4 H (11.5-15.5) % ABG pH 7.32 L (7.35-7.45) ABG pO2 73 L (83-108) mmHg ABG HCO3 20 L (21-25) mmol/L ABG O2 Saturation (94-97) % Chloride (98-107) mmol/L Carbon Dioxide (22-30) mmol/L BUN (9-20) mg/dL Creatinine (0.66-1.25) mg/dL Glucose (74-99) mg/dL POC Glucose (mg/dL) 101 H (75-99) mg/dL Calcium (8.4-10.2) mg/dL Phosphorus (2.5-4.5) mg/dL 11/05/19 Range/Units 20:07 WBC (3.8-10.6) k/uL RBC (4.30-5.90) m/uL Hgb (13.0-17.5) gm/dL Hct (39.0-53.0) % RDW (11.5-15.5) % ABG pH (7.35-7.45) ABG pO2 (83-108) mmHg ABG HCO3 (21-25) mmol/L ABG O2 Saturation (94-97) % Chloride (98-107) mmol/L Carbon Dioxide (22-30) mmol/L BUN (9-20) mg/dL Creatinine (0.66-1.25) mg/dL Glucose (74-99) mg/dL POC Glucose (mg/dL) 145 H (75-99) mg/dL Calcium (8.4-10.2) mg/dL Phosphorus (2.5-4.5) mg/dL Assessment and Plan Assessment: Acute blood loss anemia secondary to duodenal ulcer. Status post exploratory laparotomy and oversewing of duodenal ulcer on 11 01 2019 - Patient is status post EGD/colonoscopy which revealed duodenal ulcer without any active bleeding with the large interior clot in the second portion of duodenum; colonoscopy revealed ischemic colitis and left colon. Patient is presently on Protonix IV twice a day -cute hypoxic respiratory failure with bilateral pleural effusion and atelectasis. Currently on mechanical ventilator. -coronary artery disease continue with metoprolol hold off rest of the blood pressure medications and aspirin because of GI bleed -Hypertension patient is presently hypotensive secondary to GI bleed holding off on lisinopril, hydralazine. -Renal failure: I do not have any previous creatinine available patient denied any history of chronic kidney disease, patient may have acute renal failure from prerenal azotemia from acute GI bleed. 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 -Continued nicotine use: Counseling was provided for above-mentioned chronic medical problems patient will be resumed on appropriate home medications. -DVT prophylaxis with SCDs due to GI leed plan: patient will be continued on IV hydration and wean off Levophed. on mechanical ventilator. Continue with empiric antibiotics in the form of Zosyn and Flagyl.monitor H&H andblood transfusion as needed. continue with IV Protonix. pulmonary and General surgery is following.prognosis is guarded at this time. Time with Patient: Greater than 30
--- NOTE | 2019-11-06 23:20 | P.PN ---
Subjective Progress Note Date: 11/06/19 Principal diagnosis: GI bleed; status post EGD/colonoscopy Duodenal ulcer/ischemic colitis 10/30/2017 patient seen in follow-up in the intensive care unit; patient's family is at bedside and had multiple questions which were all addressed to her satisfaction; patient is status post EGD/colonoscopy which revealed a duodenal ulcer, that was not actively bleeding with a large anterior and clot in the second portion of the duodenum. Colonoscopy revealed ischemic colitis in the left colon with biopsies taken. However the procedure had to be aborted related to poor prep. Lab review shows hemoglobin is 6.8, patient has had 2 units of blood already, and he is receiving an additional unit of blood this morning. Hemodynamically patient is stable, receiving IV fluids, with 0.9 normal saline at a rate of 100 ML per hour. He remains on high flow oxygen, at 10 L and his pulse ox is 92- 93%. Complaints of chest pain, patient does have exertional dyspnea, today's chest x-ray has been reviewed, showing bibasilar atelectasis and bilateral pleural effusions. Patient is still getting IV fluids at a rate of 100, we will turn it was down, and give the patient a dose of IV Lasix, today's labs have been reviewed, showing white blood cell count 8.3, hemoglobin of 6.8, platelet count 293, sodium was 143, potassium was 5.4, chloride was 117, CO2 was 22, BUN was 53, creatinine was 2.94. No report of any further rectal bleeding; we will continue to monitor H&H closely and transfuse when needed 10/31/2019 patient is seen and evaluatedin follow-up in the intensive care unit. He is awake and alert in no acute distress. His hemoglobin was 6.6 earlier this morning. He is receiving his fourth unit of packed red blood cells in total this admission. He did undergo an EGD this morning and was found to have a large adherent clot along the duodenal sweep which was removed. A deep ulcerati on with active bleeding was visible. Epinephrine and Endo Clip placement obtained good hemostasis. There are large clots in the stomach. NG tube remains in place. He remains on Protonix 40 mg every 12 hours. Surgical consult was placed. He is currently afebrile. Hemodynamically stable. He is on 10 L high flow nasal cannula to maintain O2 saturations in the mid 90s. 0.9 normal saline at 50 MLS per hour. Remains on Unasyn. Chest x-ray shows some evidence of fluid volume overload and small effusions. White count 5.1. Creatinine 2.77. patient's family is at bedside and on inquiring about transferring the patient to [place]; did advise and son that patient is unstable at this time and family will have to discuss this with case management on Saturday11/01/2019 Patient is seen and evaluated in the room at bedside; patient has been having profuse rectal bleeding; patient underwent EGD which showed bleeding duodenal ulcer, Endo Clip was applied; patient had an episode of dark stools during the night but started bleeding profusely this afternoon; stat H&H is done which shows hemoglobin at 6.0; patient has been started on IV Levophed to maintain blood pressure; patient was evaluated by GI, ICU team and surgery and was recommended transferred to a tertiary care center; [facility] was consulted and transfer arrangements to [facility] surgical ICU were made; patient was deemed unstable for transfer and is taken to OR by the surgical team. 11/02/2019 patient wasadmitted to the hospital with upper GI bleed and was found have duodenal ulcer. due to active bleeding patient was taken to operating room for exploratory laparotomy. Postoperatively patient was intubated. Patient is currently remained on mechanical ventilator. chest x-ray showed bilateral pleural effusions mainly right side with atelectatic changes. Patient is on Levothroid drip and his IV FLUIDS. HEMOGLOBIN8.8, potassium 5.7, BUN/creatinine 46/ 2.89 11/03/2019 Patient iscurrentlyremained on mechanical ventilator. Hemoglobin 7.1 today. Patient initially received 8 units of PRBC transfusion preoperatively.Patient is still requiring pressor support on and off. Patient is currently on NG tube. TPN is being started today. chest x-ray showed improvement of atelectatic changes in the lung bases and small pleural effusion. patient has been afebrile. No abdominal distention. Surgical wound is intact. No leukocytosis. bUN/creatinine 43 x 3.13 11/04/2019 Patient is currently on mechanical ventilator. Postoperative day 3. Status post laparotomy and oversewing of duodenal ulcer. patient is currently on TPN. patient is on sedation holiday and is easily arousable. Hemoglobin is fairly stable at 7.9 today. No further episodes of GI bleed.Chest x-ray showed bilateral pleural effusions worse on the right. Ultrasound of the kidneys showed no evidence ofhydronephrosis. Creatinine level isimproving to 2.8 today.Pulmonary and GI is following. 11 05 2019 patient is postoperative day 4, status post laparotomy and oversewing of the urinalysis. Hemoglobin did improve to 8.7 today.patient is being continued on IV Lasix due to pleural effusion. Currently on norepinephrinewhich is being weaned off slowly. Patient is stable at creatinine level II.8.no signs of active GI bleed. IVELISSE drain is in place. Patient is being prepared for weaning prior.patient has been afebrile.Chest x- ray showedoverall stable findingssmall to moderate size right greater than left pleural effus with mild central vascular congestion. 11/06/2019 Patient was successfully extubated yesterday. Currently postoperative day 5. Status post exploratorylaparotomy and oversewing of duodenal ulcer. Hemoglobin is stable and improving at 9.8 today. Creatinine level is 3.03. p eripheral edema is improv patient was diuresing well vascular congestion. Currently onoxygen nasal canula. patient wants to eat Swallow evaluation is pending.currently on TPN chest x-ray showed bilateral pleural effusions right greater than left Patient has been Afebrile current medications reviewed. Active Medications Albuterol/Ipratropium (Duoneb 0.5 Mg-3 Mg/3 Ml Soln) 3 ml INHALATION RT-QID [facility] Last Admin: 11/06/19 19:30 Dose: 3 ml Documented by: Artificial Tears (Artificial Tear Drops) 1 drops BOTH EYES QID PRN PRN Reason: Dry Eye(s) Last Admin: 11/05/19 04:14 Dose: 1 drops Documented by: Atorvastatin Calcium (Lipitor) 10 mg PO HS [facility] Last Admin: 11/06/19 21:58 Dose: 10 mg Documented by: Budesonide (Pulmicort) 1 mg INHALATION RT-BID [facility] Last Admin: 11/06/19 19:30 Dose: 1 mg Documented by: Formoterol Fumarate (Perforomist) 20 mcg INHALATION RT-BID [facility] Last Admin: 11/06/19 19:30 Dose: 20 mcg Documented by: Furosemide (Lasix) 40 mg IV DAILY [facility] Hydromorphone HCl (Dilaudid) 1 mg IVP Q2HR PRN PRN Reason: Pain Last Admin: 11/06/19 05:37 Dose: 1 mg Documented by: Hydromorphone HCl (Dilaudid) 0.5 mg IVP Q2H PRN PRN Reason: Pain Last Admin: 11/06/19 00:18 Dose: 0.5 mg Documented by: Sodium Chloride (Saline 0.9%) 1,000 mls @ 20 mls/hr IV .Q24H [facility] Last Admin: 11/05/19 16:26 Dose: 20 mls/hr Documented by: Norepinephrine Bitartrate 8 mg (/ Sodium Chloride) 258 mls @ 9.259 mls/hr IV .Q24H [facility]; Protocol Last Admin: 11/06/19 14:59 Dose: Not Given Documented by: Fluconazole/Sodium Chloride (100 mg/ IV Solution) 50 mls @ 50 mls/hr IVPB DAILY [facility] Last Admin: 11/06/19 09:18 Dose: 50 mls/hr Documented by: Piperacillin Sod/Tazobactam (Sod 3.375 gm/ Sodium Chloride) 100 mls @ 25 mls/hr IVPB Q8H [facility] Last Admin: 11/06/19 21:57 Dose: 25 mls/hr Documented by: Parenteral Vitamin Supplement 10 ml/ Chromium/Copper/Manganese/Seleni/Zn 1 ml/Sodium Acetate 30 meq/Magnesium Sulfate 0.5 gm/Calcium Gluconate 1 gm/ Amino Acids/Dextrose 1,037 mls @ 90 mls/hr IV .[id number] [facility] Stop: 11/07/19 20:59 Last Admin: 11/06/19 09:24 Dose: 60 mls/hr Documented by: Parenteral Vitamin Supplement 10 ml/ Chromium/Copper/Manganese/Seleni/Zn 1 ml/Sodium Acetate 30 meq/Magnesium Sulfate 1 gm/Calcium Gluconate 1 gm/Potassium Acetate 20 meq/Amino Acids/Dextrose 1,048 mls @ 90 mls/hr IV .BY DURATION [facility] Sodium Acetate 30 meq/Magnesium Sulfate 1 gm/Calcium Gluconate 1 gm/Potassium Acetate 20 meq/Amino Acids/Dextrose 1,037 mls @ 90 mls/hr IV .BY DURATION [facility] Fat Emulsion Intravenous (Lipids 20%) 250 mls @ 20.833 mls/hr IV DAILY@1200 [facility] Fat Emulsion Intravenous (Lipids 20%) 250 mls @ 20.833 mls/hr IV DAILY@1200 [facility] Last Admin: 11/06/19 13:04 Dose: 20.833 mls/hr Documented by: Insulin Aspart (Novolog) 0 unit SQ Q4H [facility]; Protocol Last Admin: 11/06/19 21:58 Dose: 3 unit Documented by: Levothyroxine Sodium (Synthroid) 125 mcg PO DAILY@0630 [facility] Last Admin: 11/06/19 06:19 Dose: 125 mcg Documented by: Levothyroxine Sodium (Synthroid Ivp) 75 mcg IV DAILY [facility] Last Admin: 11/06/19 09:30 Dose: 75 mcg Documented by: Lidocaine (Lidoderm) 1 patch TOPICAL DAILY [facility] Last Admin: 11/06/19 09:12 Dose: 1 patch Documented by: Linagliptin (Tradjenta) 5 mg PO DAILY [facility] Last Admin: 11/06/19 09:04 Dose: 5 mg Documented by: Liothyronine Sodium (Cytomel) 5 mcg PO DAILY [facility] Last Admin: 11/06/19 09:04 Dose: 5 mcg Documented by: Metoprolol Tartrate (Lopressor) 50 mg PO BID [facility] Last Admin: 11/06/19 21:58 Dose: 50 mg Documented by: Miscellaneous Information (Potassium Per Protocol) 1 each MISCELLANE DAILY PRN; Protocol PRN Reason: Per Protocol Naloxone HCl (Narcan) 0.2 mg IV Q2M PRN PRN Reason: Opioid Reversal Nicotine (Habitrol 14mg/24hr Patch) 1 patch TRANSDERM DAILY [facility] Last Admin: 11/06/19 09:16 Dose: 1 patch Documented by: Pantoprazole Sodium (Protonix) 40 mg IV BID [facility] Last Admin: 11/06/19 21:58 Dose: 40 mg Documented by: Pregabalin (Lyrica) 50 mg PO BID [facility] Last Admin: 11/06/19 21:59 Dose: 50 mg Documented by: Objective - Vital Signs Vital signs: Vital Signs Temp 98.1 F 11/06/19 16:00 Pulse 87 11/06/19 19:50 Resp 19 11/06/19 19:00 BP 141/75 11/06/19 19:00 Pulse Ox 94 L 11/06/19 18:30 Intake & Output 11/06/19 11/06/19 11/07/19 06:59 18:59 06:59 Intake Total 920 1424.98 400.83 Output Total 2410 3250 500 Balance -1490 -1825.02 -99.17 Weight 103.9 kg 103.9 kg Intake: IV 920 1100 80 Fluconazole in NaCl,Iso- 50 Osm 100 mg In Saline 1 50ml.bag @ 50 mls/hr IVPB DAILY [facility] Rx#:[id number] Mvi, Adult No.4 with Vit 780 720 60 K 10 ml Trace (Conc-1Ml/ Dose) 1 ml Sodium Acetate 30 meq Magnesium Sulfate gm 0.5 gm Calcium Gluconate 1 gm In Amino Acid 5%-D15w 1,000 ml @ 60 mls/hr IV .[id number] [facility] Rx#:[id number] Piperacillin-Tazobactam 3 100 .375 gm In Sodium Chloride 0.9% 100 ml @ 25 mls/hr IVPB Q8H [facility] Rx#: [id number] Sodium Chloride 0.9% 1, 140 230 20 000 ml @ 20 mls/hr IV . Q24H [facility] Rx#:[id number] Intake, IV Titration 324.98 20.83 Amount Fat Emulsion 20% 250 ml @ 124.98 20.83 20.833 mls/hr IV DAILY@ 1200 [facility] Rx#:[id number] Magnesium Sulfate-D5w Pmx 200 1 gm In Dextrose/Water 1 100ml.bag @ 100 mls/hr IVPB Q1H [facility] Rx#: [id number] Oral 300 Output: Drainage 50 Right Lower Abdomen 50 Urine 2360 3250 500 Other: Voiding Method Indwelling Catheter Indwelling Catheter # Bowel Movements 1 ABP, PAP, CO, CI - Last Documented Arterial Blood Pressure 168/55 - Exam PHYSICAL EXAMINATION: PHYSICAL EXAMINATION: Patient is lying in the bed comfortably, no acute distress, awake alert and oriented.lethargic and very weak.. HEENT: Normocephalic. Neck is supple. Pupils reactive. Nostrils clear. Oral cavity is moist. Ears reveal no drainage. Neck reveals no JVD, carotid bruits, or thyromegaly. CHEST EXAMINATION: Trachea is central. Symmetrical expansion. bibasilar diminished air entry and crackles. No wheezing.. CARDIAC: Normal S1, S2 with no gallops. No murmurs ABDOMEN: Soft. Bowel sounds normal. No organomegaly. No abdominal bruits. Extremities:2+ edema. No clubbing or cyanosis Neurologically awake, alert, oriented x3 paranoid sometimes. Able to move extremitieswhile in bed. No focal deficits noted Skin: No rash or skin lesions. Psychiatric: Coperative. could not be assessed completely. Musculoskeletal: No joint swelling or deformity. - Labs CBC & Chem 7: 11/06/19 18:34 11/06/19 04:20 Labs: Abnormal Lab Results - Last 24 Hours (Table) 11/05/19 11/06/19 11/06/19 Range/Units 23:58 04:20 04:20 RBC 3.32 L (4.30-5.90) m/uL Hgb 9.8 L (13.0-17.5) gm/dL Hct 30.3 L (39.0-53.0) % RDW 16.3 H (11.5-15.5) % Chloride 113 H (98-107) mmol/L BUN 47 H (9-20) mg/dL Creatinine 3.03 H (0.66-1.25) mg/dL Glucose 174 H (74-99) mg/dL POC Glucose (mg/dL) 206 H (75-99) mg/dL Calcium 7.9 L (8.4-10.2) mg/dL 11/06/19 11/06/19 11/06/19 Range/Units 04:30 08:55 11:59 RBC (4.30-5.90) m/uL Hgb (13.0-17.5) gm/dL Hct (39.0-53.0) % RDW (11.5-15.5) % Chloride (98-107) mmol/L BUN (9-20) mg/dL Creatinine (0.66-1.25) mg/dL Glucose (74-99) mg/dL POC Glucose (mg/dL) 190 H 205 H 224 H (75-99) mg/dL Calcium (8.4-10.2) mg/dL 11/06/19 11/06/19 11/06/19 Range/Units 17:07 18:34 21:12 RBC 3.25 L (4.30-5.90) m/uL Hgb 10.6 L (13.0-17.5) gm/dL Hct 29.1 L (39.0-53.0) % RDW 16.4 H (11.5-15.5) % Chloride (98-107) mmol/L BUN (9-20) mg/dL Creatinine (0.66-1.25) mg/dL Glucose (74-99) mg/dL POC Glucose (mg/dL) 216 H 217 H (75-99) mg/dL Calcium (8.4-10.2) mg/dL Microbiology - Last 24 Hours (Table) 11/05/19 05:00 Blood Culture - Preliminary Blood No Growth after 24 hours Assessment and Plan Assessment: Acute blood loss anemia secondary to duodenal ulcer. Status post exploratory laparotomy and oversewing of duodenal ulcer on 11 01 2019 - Patient is status post EGD/colonoscopy which revealed duodenal ulcer without any active bleeding with the large interior clot in the second portion of duodenum; colonoscopy revealed ischemic colitis and left colon. Patient is presently on Protonix IV twice a day -Acute hypoxic respiratory failure with bilateral pleural effusion and atelectasis. Currently on mechanical ventilator.extubated on 11 05 2019 -coronary artery disease continue with metoprolol hold off rest of the blood pressure medications and aspirin because of GI bleed -Hypertension patient is presently hypotensive secondary to GI bleed holding off on lisinopril, hydralazine. -acute kidney injury. Possible ATN. Creatinine today is 3.03 -acute blood loss anemia due to GI bleed. 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 -PTSD and paranoid ideation. -Continued nicotine use: -DVT prophylaxis with SCDs due to GI leed plan: patient is currently extubated and weaned off frompressor support.continued on IV diuresis due to pleural effusion. Monitor renal function. continue with antibioticsin the form ofZosyn. Continue with Protonix. Will be started on oral diet. pending Swallow evaluation. Continue with TPN pulmonary and General surgery is following.prognosis is guarded at this time.discussed with his at bedside. Time with Patient: Greater than 30
[2019-11-07 00:08] LABS: Glucose,Whole Blood 202 mg/dL (75-99)
[2019-11-07] MEDS: INSULIN ASPART (NovoLOG) 100 UNIT/ML VIAL SQ SCH ×6 (00:18→23:33)
[2019-11-07] MEDS ORDERED: MVI, ADULT NO.4 WITH VIT K 10 ML, TRACE (CONC-1ML/DOSE) 1 ML, SODIUM ACETATE 30 MEQ, MA... IV SCH ×7 (02:00)
[2019-11-07] MEDS: SODIUM CHLORIDE 0.9% 1,000 ML IV SCH ×2 (04:00→15:40)
[2019-11-07] MEDS: 1: MVI, ADULT NO.4 WITH VIT K 10 ML, TRACE (CONC-1ML/DOSE) 1 ML, SODIUM ACETATE 30 MEQ, IV SCH ×21 (04:02→17:09)
[2019-11-07 04:40] LABS: Glucose,Whole Blood 164 mg/dL (75-99)
[2019-11-07 05:57] LABS: Anisocytosis Slight; HCT 26.3 % (39.0-53.0); MCH 30.7 pg (25.0-35.0); MCHC 34.8 g/dL (31.0-37.0); Mean Platelet Volume 7.8; Platelet Count 163 k/uL (150-450); RBC 2.98 m/uL (4.30-5.90); RDW 16.3 % (11.5-15.5); WBC 8.3 k/uL (3.8-10.6)
[2019-11-07 05:58] LABS: HGB 9.1 gm/dL (13.0-17.5)
--- NOTE | 2019-11-07 06:10 | XR ---
EXAMINATION TYPE: XR chest 1V DATE OF EXAM: 11/07/2019 HISTORY: post extubation. REFERENCE: Previous study dated 11/06/2019. FINDINGS: The patient right internal jugular catheter remains in place. Its tip is within the right a trium. The heart is enlarged. There is mild vascular congestion. No yaya edema is seen. There is left basil ar airspace disease. I could not exclude a small left effusion. IMPRESSION: MILD VASCULAR CONGESTION WITHOUT YAYA EDEMA.
[2019-11-07 06:13] LABS: Calcium 8.1 mg/dL (8.4-10.2); Phosphorus 3.3 mg/dL (2.5-4.5); Potassium 3.9 mmol/L (3.5-5.1)
[2019-11-07 06:16] LABS: Glucose,Whole Blood 164 mg/dL (75-99)
[2019-11-07] MEDS: LEVOTHYROXINE 125 MCG TAB PO SCH (06:17)
[2019-11-07 08:10] LABS: Glucose,Whole Blood 139 mg/dL (75-99)
[2019-11-07] MEDS: IPRATROPIUM-ALBUTEROL 3 ML NEB INHALATION SCH ×4 (08:12→19:52)
[2019-11-07] MEDS: BUDESONIDE 1 MG/2 ML NEBU INHALATION SCH ×2 (08:12→19:52)
[2019-11-07] MEDS: FORMOTEROL FUMARATE 20 MCG/2 ML NEBU INHALATION SCH ×2 (08:12→19:52)
[2019-11-07] MEDS: PIPERACILLIN-TAZOBACTAM 3.375 GM in SODIUM CHLORIDE 0.9% 100 ML IVPB SCH ×3 (08:52→22:51)
[2019-11-07] MEDS: FLUCONAZOLE IN NACL,ISO-OSM 100 MG in SALINE 1 50ML.BAG IVPB SCH (09:39)
[2019-11-07] MEDS: FUROSEMIDE 10 MG/ML 4 ML VIAL IV SCH (09:39)
[2019-11-07] MEDS: METOPROLOL TARTRATE 50 MG TAB PO SCH ×2 (09:40→23:00)
[2019-11-07] MEDS: LIDOCAINE 5% PATCH TOPICAL SCH (09:40)
[2019-11-07] MEDS: PREGABALIN 50 MG CAP PO SCH ×2 (09:40→23:01)
[2019-11-07] MEDS: LIOTHYRONINE SODIUM 5 MCG TAB PO SCH (09:41)
[2019-11-07] MEDS: NICOTINE 14MG/24HR PATCH TRANSDERM SCH (09:41)
[2019-11-07] MEDS: LINAGLIPTIN 5 MG TABLET PO SCH (09:41)
[2019-11-07] MEDS: PANTOPRAZOLE 40 MG/10 ML VIAL IV SCH ×2 (09:41→22:53)
[2019-11-07] MEDS: LEVOTHYROXINE IVP 100 MCG/5 ML VIAL IV SCH (09:42)
--- NOTE | 2019-11-07 11:05 | P.PN ---
Subjective Progress Note Date: 11/07/19 On 11/02/2019 I'm seeing this patient in follow-up after the he came back from the operating room for GI bleeding. The patient has been hospital for upper GI bleed. The patient had a duodenal ulcer. He was bleeding actively and has required a total of 8 units of packed RBC and 1 unit of fresh frozen plasma and this was given to him preoperatively. Patient was taken to the operating room and he had expiratory laparotomy and he had oversewing of a duodenal ulcer. Postop the patient was extubated in the operating room. He was unable to breathe, and he desaturated and he had to be reintubated. This morning the patient continues to be intubated on a mechanical ventilator. Is on propofol which is running at 50 g per KG per minute. He remains on assist control mode of ventilation at the rate of 24 with an FiO2 of 75% and a PEEP of 5 and a tidal volume of 450. The blood gas showed a pH of 7.36 with a pCO2 of 39 and pO2 109. Chest x-ray showing bilateral pleural effusions most on the right in addition to atelectatic changes in the right lung base. He is intubated by #8 orotracheal tube. No further bouts of bleeding. BP is 105/33 through his Artline. He is receiving IV fluids at the rate of 200 disease an hour and is on levo fed at the rate of 0.03 g per KG per minute. Urine output is in order of 15-20 mL an hour over the past 2 hours. The patient has a right IJ triple-lumen catheter. Cardiac rhythm is sinus. No significant tachycardia. Abdominal wound is clear. There is a IVELISSE drain in his right lower quadrant area. His current hemoglobin is at 8.8. intubated on mechanical ventilator. ] On today's evaluation of 11/03/2019, the patient is being seen in follow-up in his postop day #2 following a expiratory laparotomy, oversewing of a duodenal ulcer and control of the bleeding. Noted the patient was hemodynamically unstable and he has required a total of 8 units of packed RBC transfusion preoperatively. For now is postop day #2. Hemodynamically he is still a bit shaky. He still having lower urine output in the order of 20 mL an hour. Earlier this morning he developed a bout of hypotension, briefly placed on pressors and he subsequently improved. He is 7 kg positive in terms of his fluid balance and weight. He does have some increased edema lower extremity and the scrotum. Currently is on 200 mL an hour of normal saline. His CVP is at 5. His hemoglobin has dropped down to 7.1. No signs of any bleeding. He remains nothing by mouth. NG tube is in place. Output from the NG is in the order of minimal and output from the IVELISSE drain is in order of 1 8 mL over the past 24 hours. Abdomen is nondistended. He is afebrile. He remains on a mechanical ventilator. He is on assist control mode at the rate of 24 with a tidal volume of 450 and FiO2 was dropped down to 50% from a baseline of 60% and his PEEP is currently is at 8. He had a chest x-ray that showed improvement and atelectatic changes in lung bases and there is some small pleural effusion. No other medical issues otherwise. He is afebrile. He is nothing by mouth. No tachyc ardia. The rhythm is sinus. the wound site is dry clean and intact. On 11/04/2019 I'm seeing the patient for a follow-up. Patient is postop day #3 following laparotomy oversewing of a duodenal ulcer and control of a GI bleed. His postop day #3. He is sedated this morning with propofol which is running at 65 g per KG per minute. The patient is easily arousable. He'll be given a sedation holiday. He was dynamically, is doing well. Urine output is improved. He is on IV fluids at a rate of 100 mL an hour normal saline. He is also receiving TPN at the rate of 30 mL an hour. His propofol is running at 65 g and his triglyceride level is at 388. The patient is afebrile. His hemoglobin is stable at 7.9. No further episodes of GI bleed. NG tube is in place and output in the order of 100 mL overnight. IVELISSE drain is draining minimal amount in the order of 50 mL over the past 8 hours. He remains on assist control mode at the rate of 24 with a volume of 450 and FiO2 of 50% and a PEEP of 5. His blood gases from today showed a pH of 7.33 with a pCO2 of 36 and pO2 of 75. Chest x-r ay showed bilateral pleural effusions worse on the right. ET tube is in a good location. Clinically, the patient is in fluid overload and he has developed increased edema in his scrotum and his lower extremities. He was started on TPN for nutritional support yesterday and IV fluids have been cut down. Ultrasound the kidneys was done and there is no evidence of any hydronephrosis. Creatinine is at 2.8 is improved compared to yesterday. He does have a component of non- anion gap metabolic acidosis with a serum bicarbonate being advanced 17 and anion gap is at 7 for now. on 11/05/2019 I'm seeing the patient for a follow-up. On today's evaluation the patient is postop day #4 following daylaparotomy and oversewing of a duodenal ulcer. The patient remains on a combination of Zosyn and Diflucan. The this morning is sedated and the patient is still, comfortable. The plan for today was to consider giving him a sedation holiday and assess his readiness to wean as the patient was diuresed adequately over the past 24 hours while being on IV Lasix 40 mg every 8 hours. The patient producing approximately 4900 mL of urine output and he remains negative fluid balance. the patient is also on norepinephrine infusion which is running at 1 g per minute for blood pressure support. Creatinine today is at 2.8 which is stable compared to yesterday. In terms of his hemoglobin, the patient is stable at 8.7. He has not shown any signs of GI bleed. He is receiving PPN for nutritional support. He remains nothing by mouth oh for now. The blood gases from today shows a pH of 7.32with a pCO2 of 39 pO2 of 90. Serum bicarb is 19. He has minimal NG output. IVELISSE drain is still in place and output is 40 mL over the past 8 hours. He is afebrile. No other significant issues overnight. I was told by the family the patient has a component of PTSD which may potentially interfere without weaning process. on 11/06/2019 and seeing the patient for a follow-up. He is postop day #5 fo llowing exploratory laparotomy and oversewing of a duodenal ulcer. He is done well. He got diuresed. Subsequently volume status improved. The patient was taken off sedation and was extubated yesterday. He does have a underlying history of PTSD and he can be occasionally paranoid. He is awake and alert this morning. His communicating. He was able to take some sips of water. It final clearance for feeding will be discussed with general surgery. Otherwise his hemoglobin stable at 9.8. His creatinine is at 3. His producing more than 100 mL of urine output on an hourly basis. He is a negative fluid balance. Creatinine is stable at 3.0. Electrodes are all within normal limits. Cardiac rhythm is sinus. Surgical wound site is dry clean and intact. His peripheral edema in general is improving. The chest x-ray from today still showing bilateral pleural effusion right more than left. He is receiving PPN for nutritional support for the time being. On 11/07/2019, the patient is postop day #6. He is having some episodic maroon color stool. If not absolutely clear whether this is an acute GI bleed knowing that hemoglobin has been still within the stable range. Note that his hemoglobin was 9.7 and it came up to 10.6 and is down to 9.1. He remains hemodynamically stable. Is tolerating clear liquid diet. He is extremely weak. He was able to sit up at the edge of the bed with physical therapy and he was placed back in bed. His edema is improving. The patient is on IV Lasix. The patient's chest x-ray shows improvement in the volume status without any significant abnormalities noted. There is mild pulmonary vascular congestion without yaya pulmonary edema although this is improving. No fever. No chills. No altered mentation. His communicating and is hemodynamically stable on no pressors. He is still on TPN for nutritional support. Cardiac rhythm is sinus. Objective - Vital Signs Vital signs: Vital Signs Temp 100 F H 11/07/19 08:00 Pulse 93 11/07/19 09:00 Resp 22 11/07/19 09:00 BP 172/76 11/07/19 09:00 Pulse Ox 96 11/07/19 09:00 Intake & Output 11/06/19 11/07/19 11/07/19 18:59 06:59 18:59 Intake Total 1424.98 2124.83 110 Output Total 3250 3075 290 Balance -1825.02 -950.17 -180 Weight 103.9 kg 97.4 kg Intake: IV 1100 1154.0 110 Fat Emulsion 20% 250 ml @ 104.0 20.833 mls/hr IV DAILY@ 1200 [facility] Rx#:[id number] Fluconazole in NaCl,Iso- 50 Osm 100 mg In Saline 1 50ml.bag @ 50 mls/hr IVPB DAILY [facility] Rx#:[id number] Mvi, Adult No.4 with Vit 720 480 K 10 ml Trace (Conc-1Ml/ Dose) 1 ml Sodium Acetate 30 meq Magnesium Sulfate gm 0.5 gm Calcium Gluconate 1 gm In Amino Acid 5%-D15w 1,000 ml @ 60 mls/hr IV .[id number] [facility] Rx#:[id number] Mvi, Adult No.4 with Vit 270 90 K 10 ml Trace (Conc-1Ml/ Dose) 1 ml Sodium Acetate 30 meq Magnesium Sulfate gm 0.5 gm Calcium Gluconate 1 gm In Amino Acid 5%-D15w 1,000 ml @ 90 mls/hr IV .[id number] [facility] Rx#:[id number] Piperacillin-Tazobactam 3 100 100 .375 gm In Sodium Chloride 0.9% 100 ml @ 25 mls/hr IVPB Q8H [facility] Rx#: [id number] Sodium Chloride 0.9% 1, 230 200 20 000 ml @ 20 mls/hr IV . Q24H [facility] Rx#:[id number] Intake, IV Titration 324.98 20.83 Amount Fat Emulsion 20% 250 ml @ 124.98 20.83 20.833 mls/hr IV DAILY@ 1200 [facility] Rx#:[id number] Magnesium Sulfate-D5w Pmx 200 1 gm In Dextrose/Water 1 100ml.bag @ 100 mls/hr IVPB Q1H [facility] Rx#: [id number] Oral 950 Output: Drainage 55 40 Right Lower Abdomen 55 40 Urine 3250 3020 250 Other: Voiding Method Indwelling Catheter Indwelling Catheter # Bowel Movements 1 1 ABP, PAP, CO, CI - Last Documented Arterial Blood Pressure 168/55 - Exam Gen. appearance, comfortable extubated currently on oxygen at 4 L Head exam was generally normal. There was no scleral icterus or corneal arcus. Mucous membranes were moist. Neck was supple and without jugular venous distension, thyromegaly, or carotid bruits. Carotids were easily palpable bilaterally. There was no adenopathy. Lungs were clear to auscultation and percussion, and with normal diaphragmatic excursion. No wheezes or rales were noted. Breath sounds are diminished in lung bases bilaterally. Cardiac exam revealed the PMI to be normally situated and sized. The rhythm was regular and no extrasystoles were noted during several minutes of auscultation. The first and second heart sounds were normal and physiologic splitting of the second heart sound was noted. There were no murmurs, rubs, clicks, or gallops. Abdomen is soft and the patient has a mid abdominal incision with a IVELISSE drain in the right lower quadrant. Bowel sounds are hypoactive. The IVELISSE drain has put out a total of 2 40 mL's over the past 24 hours. He has active bowel sounds for now. Neck tenderness. No rebound tenderness. No guarding. Examination of the extremities revealed easily palpable radial, femoral and pedal pulses. There was no cyanosis, clubbing or edema. Examination of the skin revealed no evidence of significant rashes, suspicious appearing nevi or other concerning lesions. Neurologically sedated, comfortable, awake and alert, occasionally paranoid with history of PTSD, He is quite weak for the time being. - Labs CBC & Chem 7: 11/07/19 05:22 11/07/19 05:22 Labs: Abnormal Lab Results - Last 24 Hours (Table) 11/06/19 11/06/19 11/06/19 Range/Units 11:59 17:07 18:34 RBC 3.25 L (4.30-5.90) m/uL Hgb 10.6 L (13.0-17.5) gm/dL Hct 29.1 L (39.0-53.0) % RDW 16.4 H (11.5-15.5) % Chloride (98-107) mmol/L BUN (9-20) mg/dL Creatinine (0.66-1.25) mg/dL Glucose (74-99) mg/dL POC Glucose (mg/dL) 224 H 216 H (75-99) mg/dL Calcium (8.4-10.2) mg/dL 11/06/19 11/06/19 11/07/19 Range/Units 21:12 23:56 04:29 RBC (4.30-5.90) m/uL Hgb (13.0-17.5) gm/dL Hct (39.0-53.0) % RDW (11.5-15.5) % Chloride (98-107) mmol/L BUN (9-20) mg/dL Creatinine (0.66-1.25) mg/dL Glucose (74-99) mg/dL POC Glucose (mg/dL) 217 H 202 H 164 H (75-99) mg/dL Calcium (8.4-10.2) mg/dL 11/07/19 11/07/19 11/07/19 Range/Units 05:22 05:22 06:05 RBC 2.98 L (4.30-5.90) m/uL Hgb 9.1 L D (13.0-17.5) gm/dL Hct 26.3 L (39.0-53.0) % RDW 16.3 H (11.5-15.5) % Chloride 110 H (98-107) mmol/L BUN 45 H (9-20) mg/dL Creatinine 2.40 H (0.66-1.25) mg/dL Glucose 150 H (74-99) mg/dL POC Glucose (mg/dL) 164 H (75-99) mg/dL Calcium 8.1 L (8.4-10.2) mg/dL 11/07/19 Range/Units 07:59 RBC (4.30-5.90) m/uL Hgb (13.0-17.5) gm/dL Hct (39.0-53.0) % RDW (11.5-15.5) % Chloride (98-107) mmol/L BUN (9-20) mg/dL Creatinine (0.66-1.25) mg/dL Glucose (74-99) mg/dL POC Glucose (mg/dL) 139 H (75-99) mg/dL Calcium (8.4-10.2) mg/dL Microbiology - Last 24 Hours (Table) 11/05/19 05:00 Blood Culture - Preliminary Blood No Growth after 48 hours Assessment and Plan Plan: 1 acute upper GI bleed secondary to duodenal ulcer. The patient underwent exploratory laparotomy and oversewing of duodenal ulcer on today's postop day #6. There is a concern of ongoing GI bleed as the patient balloon color stool. Hemoglobin has dropped down to 9.1. 2 blood loss anemia secondary to GI bleed, the hemoglobin stable at 9.1 3 acute hypoxic respiratory failure with development of bilateral pleural effusion and atelectatic changes in lung bases, extremities yesterday currently on 4 L in the chest exit is still showing bilateral pleural effusion right more than left, still on IV Lasix with improvement in the volume status and the chest x-ray showing mild pulmonary vascular congestion without yaya edema. 4 chronic kidney disease with component of an acute kidney injury in the creatinine is proving and his creatinine is down to 2.4 and the patient is producing adequate amount of urine output with a net fluid balance of -2.7 L over the past 24 hours. 5 obstructive sleep apnea maintained on CPAP on outpatient basis 6 hyperlipidemia 7 hypothyroidism 8 hypertension history of 9 diabetes mellitus, with improvement of blood sugar while the patient being up to Solu-Medrol. 10 osteoarthritis 11 NPO status and the patient is on PPN 12 Hypertriglyceridemia Plan I am a bit concerned about ongoing GI bleed. We'll going to monitor this. Repeat hemoglobin every 12 hours Continue TPN. Avoid clear liquid diet for now Continue Zosyn and Diflucan IV Protonix Aggressive physical therapy Discussed the case with general surgery. Will consider transferring this patient to a tertiary care center for possible angiogram/embolization if there is any solid evidence of recurrent GI bleed. We'll continue to follow. Provide an incentive spirometer Will follow
--- NOTE | 2019-11-07 11:32 | P.PN ---
Progress Note - Text Progress Note Date: 11/07/19 the patient is resting in his bed. He previously slightly confused. His hematoma stable at 9.1. On exam his vital signs appear stable. His abdomen soft. Incision sites clean and intact. Status post oversewing of duodenal ulcer. Patient will have his diet advanced to full liquids.
[2019-11-07] MEDS: NOREPINEPHRINE 8 MG in SODIUM CHLORIDE 0.9% 250 ML IV SCH (12:00)
[2019-11-07] MEDS: FAT EMULSION 20% 250 ML IV SCH ×2 (12:07)
[2019-11-07 12:23] LABS: Glucose,Whole Blood 123 mg/dL (75-99)
[2019-11-07] MEDS ORDERED: ACETAMINOPHEN IV (For NPO) 1,000 MG in EMPTY BAG 1 BAG IVPB STA (16:03)
[2019-11-07 16:41] LABS: Anisocytosis Slight; Basophils # (A) 0.1 k/uL (0-0.2); Basophils % (A) 1 %; Eosinophils # (A) 0.2 k/uL (0-0.7); Eosinophils % (A) 2 %; HGB 9.5 gm/dL (13.0-17.5); Lymphocytes # (A) 1.2 k/uL (1.0-4.8); Lymphocytes % (A) 14 %; MCH 31.6 pg (25.0-35.0); MCV 90.2 fL (80.0-100.0); Mean Platelet Volume 8.2; Monocytes # (A) 0.3 k/uL (0-1.0); Monocytes % (A) 4 %; Neutrophils # (A) 6.6 k/uL (1.3-7.7); Neutrophils % (A) 78 %; Platelet Count 181 k/uL (150-450); RBC 2.99 m/uL (4.30-5.90); RDW 16.2 % (11.5-15.5); WBC 8.4 k/uL (3.8-10.6)
[2019-11-07 16:52] LABS: Calcium 8.1 mg/dL (8.4-10.2); Magnesium 1.9 mg/dL (1.6-2.3); Potassium 3.5 mmol/L (3.5-5.1)
[2019-11-07] MEDS ORDERED: ADENOSINE 3 MG/ML 2 ML VIAL IVP ONE (16:52)
[2019-11-07] MEDS ORDERED: Magnesium Replacement Protocol 1 EACH MISC MISCELLANE PRN (17:06)
[2019-11-07] MEDS ORDERED: Potassium Replacement Protocol 1 EACH MISC MISCELLANE PRN (17:06)
[2019-11-07] MEDS: MAGNESIUM SULFATE-D5W PMX 1 GM in DEXTROSE/WATER 1 100ML.BAG IVPB SCH ×2 (17:14→17:44)
[2019-11-07] MEDS: POTASSIUM CHLORIDE 20 MEQ in WATER FOR INJECTION 1 100ML.BAG IVPB SCH ×2 (17:14→22:50)
[2019-11-07] MEDS ORDERED: DEXTROSE 5% IN WATER 100 ML with AMIODARONE 150 MG IV ONE (17:30)
[2019-11-07] MEDS ORDERED: AMIODARONE 360 MG in DEXTROSE 5% IN WATER 200 ML IV ONE ×2 (17:40)
[2019-11-07 20:07] LABS: Glucose,Whole Blood 271 mg/dL (75-99)
[2019-11-07] MEDS: AMIODARONE 300 MG in DEXTROSE 5% IN WATER 250 ML IV SCH ×2 (23:00)
[2019-11-07] MEDS: ATORVASTATIN 10 MG TAB PO SCH (23:00)
[2019-11-08 00:11] LABS: Glucose,Whole Blood 311 mg/dL (75-99)
[2019-11-08] MEDS: INSULIN ASPART (NovoLOG) 100 UNIT/ML VIAL SQ SCH ×6 (00:22→20:55)
[2019-11-08 04:13] LABS: Glucose,Whole Blood 317 mg/dL (75-99)
[2019-11-08] MEDS: PIPERACILLIN-TAZOBACTAM 3.375 GM in SODIUM CHLORIDE 0.9% 100 ML IVPB SCH ×3 (04:36→20:55)
[2019-11-08 04:52] LABS: HCT 25.4 % (39.0-53.0); HGB 8.6 gm/dL (13.0-17.5); MCH 30.7 pg (25.0-35.0); MCHC 34.1 g/dL (31.0-37.0); MCV 90.1 fL (80.0-100.0); Mean Platelet Volume 8.2; Platelet Count 173 k/uL (150-450); RBC 2.82 m/uL (4.30-5.90); RDW 15.8 % (11.5-15.5)
[2019-11-08 05:01] LABS: Calcium 7.8 mg/dL (8.4-10.2); Magnesium 2.3 mg/dL (1.6-2.3); Phosphorus 2.8 mg/dL (2.5-4.5)
[2019-11-08] MEDS: FORMOTEROL FUMARATE 20 MCG/2 ML NEBU INHALATION SCH ×2 (09:24→19:46)
[2019-11-08] MEDS: IPRATROPIUM-ALBUTEROL 3 ML NEB INHALATION SCH ×4 (09:24→19:45)
[2019-11-08] MEDS: BUDESONIDE 1 MG/2 ML NEBU INHALATION SCH ×2 (09:24→19:46)
[2019-11-08] MEDS: 1: MVI, ADULT NO.4 WITH VIT K 10 ML, TRACE (CONC-1ML/DOSE) 1 ML, SODIUM ACETATE 30 MEQ, IV SCH ×21 (09:32→21:59)
[2019-11-08] MEDS: FUROSEMIDE 10 MG/ML 4 ML VIAL IV SCH (09:39)
[2019-11-08] MEDS: NICOTINE 14MG/24HR PATCH TRANSDERM SCH (09:39)
[2019-11-08] MEDS: FLUCONAZOLE IN NACL,ISO-OSM 100 MG in SALINE 1 50ML.BAG IVPB SCH (09:39)
[2019-11-08] MEDS: PANTOPRAZOLE 40 MG/10 ML VIAL IV SCH ×2 (09:40→20:55)
[2019-11-08] MEDS: NOREPINEPHRINE 8 MG in SODIUM CHLORIDE 0.9% 250 ML IV SCH (09:40)
[2019-11-08] MEDS: METOPROLOL TARTRATE 50 MG TAB PO SCH ×2 (09:40→20:55)
[2019-11-08] MEDS: PREGABALIN 50 MG CAP PO SCH ×2 (09:40→20:55)
[2019-11-08] MEDS: LIDOCAINE 5% PATCH TOPICAL SCH (09:41)
[2019-11-08] MEDS: LINAGLIPTIN 5 MG TABLET PO SCH (09:41)
[2019-11-08] MEDS: LIOTHYRONINE SODIUM 5 MCG TAB PO SCH (09:41)
[2019-11-08] MEDS: LEVOTHYROXINE 125 MCG TAB PO SCH (09:41)
[2019-11-08 09:46] LABS: Glucose,Whole Blood 139 mg/dL (75-99)
--- NOTE | 2019-11-08 10:35 | P.PN ---
Subjective Progress Note Date: 11/08/19 On 11/02/2019 I'm seeing this patient in follow-up after the he came back from the operating room for GI bleeding. The patient has been hospital for upper GI bleed. The patient had a duodenal ulcer. He was bleeding actively and has required a total of 8 units of packed RBC and 1 unit of fresh frozen plasma and this was given to him preoperatively. Patient was taken to the operating room and he had expiratory laparotomy and he had oversewing of a duodenal ulcer. Postop the patient was extubated in the operating room. He was unable to breathe, and he desaturated and he had to be reintubated. This morning the patient continues to be intubated on a mechanical ventilator. Is on propofol which is running at 50 g per KG per minute. He remains on assist control mode of ventilation at the rate of 24 with an FiO2 of 75% and a PEEP of 5 and a tidal volume of 450. The blood gas showed a pH of 7.36 with a pCO2 of 39 and pO2 109. Chest x-ray showing bilateral pleural effusions most on the right in addition to atelectatic changes in the right lung base. He is intubated by #8 orotracheal tube. No further bouts of bleeding. BP is 105/33 through his Artline. He is receiving IV fluids at the rate of 200 disease an hour and is on levo fed at the rate of 0.03 g per KG per minute. Urine output is in order of 15-20 mL an hour over the past 2 hours. The patient has a right IJ triple-lumen catheter. Cardiac rhythm is sinus. No significant tachycardia. Abdominal wound is clear. There is a IVELISSE drain in his right lower quadrant area. His current hemoglobin is at 8.8. intubated on mechanical ventilator. ] On today's evaluation of 11/03/2019, the patient is being seen in follow-up in his postop day #2 following a expiratory laparotomy, oversewing of a duodenal ulcer and control of the bleeding. Noted the patient was hemodynamically unstable and he has required a total of 8 units of packed RBC transfusion preoperatively. For now is postop day #2. Hemodynamically he is still a bit shaky. He still having lower urine output in the order of 20 mL an hour. Earlier this morning he developed a bout of hypotension, briefly placed on pressors and he subsequently improved. He is 7 kg positive in terms of his fluid balance and weight. He does have some increased edema lower extremity and the scrotum. Currently is on 200 mL an hour of normal saline. His CVP is at 5. His hemoglobin has dropped down to 7.1. No signs of any bleeding. He remains nothing by mouth. NG tube is in place. Output from the NG is in the order of minimal and output from the IVELISSE drain is in order of 1 8 mL over the past 24 hours. Abdomen is nondistended. He is afebrile. He remains on a mechanical ventilator. He is on assist control mode at the rate of 24 with a tidal volume of 450 and FiO2 was dropped down to 50% from a baseline of 60% and his PEEP is currently is at 8. He had a chest x-ray that showed improvement and atelectatic changes in lung bases and there is some small pleural effusion. No other medical issues otherwise. He is afebrile. He is nothing by mouth. No tachyc ardia. The rhythm is sinus. the wound site is dry clean and intact. On 11/04/2019 I'm seeing the patient for a follow-up. Patient is postop day #3 following laparotomy oversewing of a duodenal ulcer and control of a GI bleed. His postop day #3. He is sedated this morning with propofol which is running at 65 g per KG per minute. The patient is easily arousable. He'll be given a sedation holiday. He was dynamically, is doing well. Urine output is improved. He is on IV fluids at a rate of 100 mL an hour normal saline. He is also receiving TPN at the rate of 30 mL an hour. His propofol is running at 65 g and his triglyceride level is at 388. The patient is afebrile. His hemoglobin is stable at 7.9. No further episodes of GI bleed. NG tube is in place and output in the order of 100 mL overnight. IVELISSE drain is draining minimal amount in the order of 50 mL over the past 8 hours. He remains on assist control mode at the rate of 24 with a volume of 450 and FiO2 of 50% and a PEEP of 5. His blood gases from today showed a pH of 7.33 with a pCO2 of 36 and pO2 of 75. Chest x-r ay showed bilateral pleural effusions worse on the right. ET tube is in a good location. Clinically, the patient is in fluid overload and he has developed increased edema in his scrotum and his lower extremities. He was started on TPN for nutritional support yesterday and IV fluids have been cut down. Ultrasound the kidneys was done and there is no evidence of any hydronephrosis. Creatinine is at 2.8 is improved compared to yesterday. He does have a component of non- anion gap metabolic acidosis with a serum bicarbonate being advanced 17 and anion gap is at 7 for now. on 11/05/2019 I'm seeing the patient for a follow-up. On today's evaluation the patient is postop day #4 following daylaparotomy and oversewing of a duodenal ulcer. The patient remains on a combination of Zosyn and Diflucan. The this morning is sedated and the patient is still, comfortable. The plan for today was to consider giving him a sedation holiday and assess his readiness to wean as the patient was diuresed adequately over the past 24 hours while being on IV Lasix 40 mg every 8 hours. The patient producing approximately 4900 mL of urine output and he remains negative fluid balance. the patient is also on norepinephrine infusion which is running at 1 g per minute for blood pressure support. Creatinine today is at 2.8 which is stable compared to yesterday. In terms of his hemoglobin, the patient is stable at 8.7. He has not shown any signs of GI bleed. He is receiving PPN for nutritional support. He remains nothing by mouth oh for now. The blood gases from today shows a pH of 7.32with a pCO2 of 39 pO2 of 90. Serum bicarb is 19. He has minimal NG output. IVELISSE drain is still in place and output is 40 mL over the past 8 hours. He is afebrile. No other significant issues overnight. I was told by the family the patient has a component of PTSD which may potentially interfere without weaning process. on 11/06/2019 and seeing the patient for a follow-up. He is postop day #5 fo llowing exploratory laparotomy and oversewing of a duodenal ulcer. He is done well. He got diuresed. Subsequently volume status improved. The patient was taken off sedation and was extubated yesterday. He does have a underlying history of PTSD and he can be occasionally paranoid. He is awake and alert this morning. His communicating. He was able to take some sips of water. It final clearance for feeding will be discussed with general surgery. Otherwise his hemoglobin stable at 9.8. His creatinine is at 3. His producing more than 100 mL of urine output on an hourly basis. He is a negative fluid balance. Creatinine is stable at 3.0. Electrodes are all within normal limits. Cardiac rhythm is sinus. Surgical wound site is dry clean and intact. His peripheral edema in general is improving. The chest x-ray from today still showing bilateral pleural effusion right more than left. He is receiving PPN for nutritional support for the time being. On 11/07/2019, the patient is postop day #6. He is having some episodic maroon color stool. If not absolutely clear whether this is an acute GI bleed knowing that hemoglobin has been still within the stable range. Note that his hemoglobin was 9.7 and it came up to 10.6 and is down to 9.1. He remains hemodynamically stable. Is tolerating clear liquid diet. He is extremely weak. He was able to sit up at the edge of the bed with physical therapy and he was placed back in bed. His edema is improving. The patient is on IV Lasix. The patient's chest x-ray shows improvement in the volume status without any significant abnormalities noted. There is mild pulmonary vascular congestion without yaya pulmonary edema although this is improving. No fever. No chills. No altered mentation. His communicating and is hemodynamically stable on no pressors. He is still on TPN for nutritional support. Cardiac rhythm is sinus. on 11/08/2019 the patient is postop day #7. The patient is delirious this morning. He is confused. He is trying to reach stuff and trying to call people however he is not agitated. He is weak. He is nothing by mouth for now. TPN still running. We were concerned of GI bleed yesterday. We have not seen any further bouts of GI bleeding. The patient's hemoglobin stayed stable at 8.6. Surgical wound site is dry clean and intact. No abdominal distention. No aspiration. The patient started having episodes of low-grade fever with a temperature of 100.9. We sent 2 sets of blood cultures. We'll kept him on a combination of Zosyn and Diflucan. The triple-lumen site is clean. The chest x-rays showing improvement in infiltrates bilaterally. As such were not sure if he is truly infected or not. Also, he is having episodes of SVT. The patient had several runs of SVT yesterday with a heart rate ranging between 140 and 160. He was given adenosine which converted him and subsequently went back. Following that, the patient was started on amiodarone drip which put him in sinus rhythm and the drip is still running at 0.5 mg per KG per minute. He makes excellent urine output. The IV fluids running at 20 mL an hour. He is receiving Lasix 40 mg daily basis. The edema is improved significantly. I think it's time to cut back and discontinue the Lasix for now. Objective - Vital Signs Vital signs: Vital Signs Temp 99.1 F 11/08/19 08:00 Pulse 75 11/08/19 08:00 Resp 20 11/08/19 08:00 BP 161/70 11/08/19 08:00 Pulse Ox 99 11/08/19 08:00 Intake & Output 11/07/19 11/08/19 11/08/19 18:59 06:59 18:59 Intake Total 1993.8 1535.6 45 Output Total 2920 1445 40 Balance -925.2 90.6 5 Weight 94.8 kg Intake: IV 1993.8 1535.6 45 Fat Emulsion 20% 250 ml @ 124.8 145.6 20.833 mls/hr IV DAILY@ 1200 [facility] Rx#:[id number] Fluconazole in NaCl,Iso- 50 Osm 100 mg In Saline 1 50ml.bag @ 50 mls/hr IVPB DAILY [facility] Rx#:[id number] Magnesium Sulfate-D5w Pmx 200 1 gm In Dextrose/Water 1 100ml.bag @ 100 mls/hr IVPB Q1H [facility] Rx#: [id number] Mvi, Adult No.4 with Vit 1080 900 K 10 ml Trace (Conc-1Ml/ Dose) 1 ml Sodium Acetate 30 meq Magnesium Sulfate gm 0.5 gm Calcium Gluconate 1 gm In Amino Acid 5%-D15w 1,000 ml @ 90 mls/hr IV .[id number] [facility] Rx#:[id number] Piperacillin-Tazobactam 3 100 150 25 .375 gm In Sodium Chloride 0.9% 100 ml @ 25 mls/hr IVPB Q8H [facility] Rx#: [id number] Potassium Chloride 20 meq 200 100 In Water For Injection 1 100ml.bag @ 50 mls/hr IVPB Q2H [facility] Rx#: [id number] Sodium Chloride 0.9% 1, 240 240 20 000 ml @ 20 mls/hr IV . Q24H [facility] Rx#:[id number] Output: Drainage 70 25 Right Lower Abdomen 70 25 Urine 2850 1420 40 Other: Voiding Method Indwelling Catheter Indwelling Catheter # Bowel Movements 1 ABP, PAP, CO, CI - Last Documented Arterial Blood Pressure 168/55 - Exam Gen. appearance, comfortable extubated currently on oxygen at 8liters. The patient is pleasantly confused. No significant agitation. Head exam was generally normal. There was no scleral icterus or corneal arcus. Mucous membranes were moist. Neck was supple and without jugular venous distension, thyromegaly, or carotid bruits. Carotids were easily palpable bilaterally. There was no adenopathy. Lungs were clear to auscultation and percussion, and with normal diaphragmatic excursion. No wheezes or rales were noted. Breath sounds are diminished in lung bases bilaterally. Cardiac exam revealed the PMI to be normally situated and sized. The rhythm was regular and no extrasystoles were noted during several minutes of auscultation. The first and second heart sounds were normal and physiologic splitting of the second heart sound was noted. There were no murmurs, rubs, clicks, or gallops. Abdomen is soft and the patient has a mid abdominal incision with a IVELISSE drain in the right lower quadrant. Bowel sounds are hypoactive. The IVELISSE drain has put out a total of 95 mL's over the past 24 hours. He has active bowel sounds for now. Neck tenderness. No rebound tenderness. No guarding. Examination of the extremities revealed easily palpable radial, femoral and peda l pulses. There was no cyanosis, clubbing or edema. Examination of the skin revealed no evidence of significant rashes, suspicious appearing nevi or other concerning lesions. Neurologically confused and deliriousbut he is not combative, comfortable, occasionally paranoid with history of PTSD, He is quite weak for the time being. - Labs CBC & Chem 7: 11/08/19 04:31 11/08/19 04:31 Labs: Abnormal Lab Results - Last 24 Hours (Table) 11/07/19 11/07/19 11/07/19 Range/Units 12:11 16:11 16:11 RBC 2.99 L (4.30-5.90) m/uL Hgb 9.5 L (13.0-17.5) gm/dL Hct 27.0 L (39.0-53.0) % RDW 16.2 H (11.5-15.5) % Carbon Dioxide (22-30) mmol/L BUN 41 H (9-20) mg/dL Creatinine 2.51 H (0.66-1.25) mg/dL Glucose 112 H (74-99) mg/dL POC Glucose (mg/dL) 123 H (75-99) mg/dL Calcium 8.1 L (8.4-10.2) mg/dL 11/07/19 11/08/19 11/08/19 Range/Units 19:54 00:00 04:00 RBC (4.30-5.90) m/uL Hgb (13.0-17.5) gm/dL Hct (39.0-53.0) % RDW (11.5-15.5) % Carbon Dioxide (22-30) mmol/L BUN (9-20) mg/dL Creatinine (0.66-1.25) mg/dL Glucose (74-99) mg/dL POC Glucose (mg/dL) 271 H 311 H 317 H (75-99) mg/dL Calcium (8.4-10.2) mg/dL 11/08/19 11/08/19 11/08/19 Range/Units 04:31 04:31 09:34 RBC 2.82 L (4.30-5.90) m/uL Hgb 8.6 L (13.0-17.5) gm/dL Hct 25.4 L (39.0-53.0) % RDW 15.8 H (11.5-15.5) % Carbon Dioxide 31 H (22-30) mmol/L BUN 45 H (9-20) mg/dL Creatinine 2.16 H (0.66-1.25) mg/dL Glucose 289 H (74-99) mg/dL POC Glucose (mg/dL) 139 H (75-99) mg/dL Calcium 7.8 L (8.4-10.2) mg/dL Microbiology - Last 24 Hours (Table) 11/05/19 05:00 Blood Culture - Preliminary Blood No Growth after 72 hours Assessment and Plan Plan: 1 acute upper GI bleed secondary to duodenal ulcer. The patient underwent exploratory laparotomy and oversewing of duodenal ulcer on today's postop day #7 There is a concern of ongoing GI bleed as the patient malloon color stool. Hemoglobin has dropped down to 8.6. The patient has not shown any further bouts of bleeding and his hemoglobin is stable for now. 2 blood loss anemia secondary to GI bleed, the hemoglobin stable at 8.6 3 acute hypoxic respiratory failure with development of bilateral pleural effu guillermo and atelectatic changes in lung bases, extremities yesterday currently on 8lplan the fluid overload and about the pleural effusions have been improving and subsequent chest x-rays 4 chronic kidney disease with component of an acute kidney injury in the creatinine is improving and his creatinine is down to 2.1 and the patient is producing excellent urine output, with a negative fluid balance of 800 mL over the past 24 hours 5 obstructive sleep apnea maintained on CPAP on outpatient basis 6 hyperlipidemia 7 hypothyroidism 8 hypertension history of 9 diabetes mellitus, With a component of hypoglycemia as the patient is receiving TPN 10 osteoarthritis 11 NPO status and the patient is on TPN 12 Hypertriglyceridemia 13 episodes of fever 14 episodes of SVTs current rhythm is back to sinus 15 delirium with history of PTSD and some paranoid ideations Plan I am still concerned about ongoing GI bleed. We'll going to monitor this. Repeat hemoglobin every 12 hours Continue TPN. Avoid clear liquid diet for now Continue Zosyn and Diflucan cultures were sent and results are still pending. There is concern for bacteremia or fungus anemia as the patient is receiving TPN for now IV Protonix Aggressive physical therapy continue the amiodarone drip and monitor the rhythm Provide an incentive spirometer discontinue the Lasix Check pro-calcitonin level Will follow , critically care evaluation more than 30 Time with Patient: Greater than 30
[2019-11-08] MEDS ORDERED: HALOPERIDOL LACTATE 5 MG/ML 1 ML VIAL IVP PRN (11:30)
[2019-11-08] MEDS: AMIODARONE 300 MG in DEXTROSE 5% IN WATER 250 ML IV SCH ×2 (11:45)
[2019-11-08 11:55] LABS: Glucose,Whole Blood 223 mg/dL (75-99)
--- NOTE | 2019-11-08 14:12 | P.PN ---
Progress Note - Text Progress Note Date: 11/08/19 the patient is confused. He is unaware of where he is. The patient has not shown any evidence of repeat GI bleed. On exam his vital signs appear stable. His abdomen is soft. Incision site is clean dry intact. Status post duodenal ulcer repair. Patient will be observed. We will maintain supportive care. If he shows any evidence of recurrent bleeding. He may need to be transferred.
[2019-11-08] MEDS: FAT EMULSION 20% 250 ML IV SCH (14:44)
[2019-11-08] MEDS: SODIUM CHLORIDE 0.9% 1,000 ML IV SCH (14:44)
[2019-11-08 16:10] LABS: Glucose,Whole Blood 263 mg/dL (75-99)
[2019-11-08 20:53] LABS: Glucose,Whole Blood 283 mg/dL (75-99)
[2019-11-08] MEDS: ATORVASTATIN 10 MG TAB PO SCH (20:55)
[2019-11-08] MEDS: metroNIDAZOLE-NS PMX 500 MG in SALINE 1 100ML.BAG IVPB SCH (21:30)
[2019-11-08] MEDS: MVI, ADULT NO.4 WITH VIT K 10 ML, TRACE (CONC-1ML/DOSE) 1 ML, SODIUM ACETATE 30 MEQ, MA... IV SCH ×12 (21:30→21:31)
[2019-11-09 00:08] LABS: Glucose,Whole Blood 279 mg/dL (75-99)
[2019-11-09] MEDS: INSULIN ASPART (NovoLOG) 100 UNIT/ML VIAL SQ SCH ×6 (00:45→20:46)
[2019-11-09 04:21] LABS: Glucose,Whole Blood 292 mg/dL (75-99)
[2019-11-09] MEDS: PIPERACILLIN-TAZOBACTAM 3.375 GM in SODIUM CHLORIDE 0.9% 100 ML IVPB SCH ×3 (04:29→20:41)
[2019-11-09 04:56] LABS: Basophils # (A) 0.1 k/uL (0-0.2); Basophils % (A) 1 %; Eosinophils # (A) 0.2 k/uL (0-0.7); Eosinophils % (A) 4 %; HCT 28.7 % (39.0-53.0); HGB 9.6 gm/dL (13.0-17.5); Lymphocytes # (A) 0.7 k/uL (1.0-4.8); Lymphocytes % (A) 13 %; MCH 30.2 pg (25.0-35.0); MCHC 33.5 g/dL (31.0-37.0); MCV 90.3 fL (80.0-100.0); Mean Platelet Volume 8.3; Monocytes # (A) 0.3 k/uL (0-1.0); Monocytes % (A) 5 %; Neutrophils # (A) 4.3 k/uL (1.3-7.7); Neutrophils % (A) 75 %; Platelet Count 146 k/uL (150-450); RBC 3.18 m/uL (4.30-5.90); RDW 15.8 % (11.5-15.5); WBC 5.7 k/uL (3.8-10.6)
[2019-11-09 05:06] LABS: Calcium 7.9 mg/dL (8.4-10.2); Magnesium 2.3 mg/dL (1.6-2.3); Phosphorus 2.3 mg/dL (2.5-4.5)
[2019-11-09 05:20] LABS: Potassium 3.6 mmol/L (3.5-5.1)
[2019-11-09] MEDS: POTASSIUM CHLORIDE 10 MEQ in WATER FOR INJECTION 1 100ML.BAG IVPB SCH ×2 (06:58→09:01)
[2019-11-09] MEDS: LEVOTHYROXINE 125 MCG TAB PO SCH (06:58)
[2019-11-09] MEDS: FLUCONAZOLE IN NACL,ISO-OSM 100 MG in SALINE 1 50ML.BAG IVPB SCH (07:41)
[2019-11-09] MEDS: FUROSEMIDE 10 MG/ML 4 ML VIAL IV SCH (07:43)
[2019-11-09] MEDS: LIDOCAINE 5% PATCH TOPICAL SCH (07:43)
[2019-11-09] MEDS: PANTOPRAZOLE 40 MG/10 ML VIAL IV SCH ×2 (07:43→20:45)
[2019-11-09] MEDS: METOPROLOL TARTRATE 50 MG TAB PO SCH ×2 (07:44→20:45)
[2019-11-09] MEDS: PREGABALIN 50 MG CAP PO SCH ×2 (07:44→20:45)
[2019-11-09] MEDS: NICOTINE 14MG/24HR PATCH TRANSDERM SCH (07:44)
[2019-11-09] MEDS: LINAGLIPTIN 5 MG TABLET PO SCH (07:44)
[2019-11-09] MEDS: LIOTHYRONINE SODIUM 5 MCG TAB PO SCH (07:45)
[2019-11-09] MEDS: FORMOTEROL FUMARATE 20 MCG/2 ML NEBU INHALATION SCH ×2 (07:52→19:41)
[2019-11-09] MEDS: IPRATROPIUM-ALBUTEROL 3 ML NEB INHALATION SCH ×4 (07:52→19:41)
[2019-11-09] MEDS: BUDESONIDE 1 MG/2 ML NEBU INHALATION SCH ×2 (07:52→19:41)
[2019-11-09 07:59] LABS: Glucose,Whole Blood 283 mg/dL (75-99)
[2019-11-09] MEDS: 1: MVI, ADULT NO.4 WITH VIT K 10 ML, TRACE (CONC-1ML/DOSE) 1 ML, SODIUM ACETATE 30 MEQ, IV SCH ×14 (09:01→13:43)
[2019-11-09] MEDS ORDERED: Phosphorus Replacement Protoco 1 EACH MISC MISCELLANE PRN (09:10)
--- NOTE | 2019-11-09 09:45 | P.PN ---
Subjective Progress Note Date: 11/09/19 Principal diagnosis: duodenal ulcer Patient did well over the weekend. Last bowel movement was black in color and fairly small on Saturday morning. He has been nothing by mouth however. Denies nausea or vomiting. Still feels weak. Hemoglobin stable at 9.6. No hypotension. Good urine output throughout the weekend. IVELISSE drain remains serosanguineous. Denies pain. Objective - Vital Signs Vital signs: Vital Signs Temp 99.9 F H 11/09/19 08:00 Pulse 73 11/09/19 09:00 Resp 26 H 11/09/19 09:00 BP 175/72 11/09/19 09:00 Pulse Ox 97 11/09/19 09:00 Intake & Output 11/08/19 11/09/19 11/09/19 18:59 06:59 18:59 Intake Total 1869.0 2482.8 480 Output Total 3590 1230 505 Balance -1721.0 1252.8 -25 Weight 92.9 kg Intake: IV 1619.0 1434.8 480 Fat Emulsion 20% 250 ml @ 104.0 124.8 20.833 mls/hr IV DAILY@ 1400 [facility] Rx#:[id number] Fluconazole in NaCl,Iso- 50 50 Osm 100 mg In Saline 1 50ml.bag @ 50 mls/hr IVPB DAILY [facility] Rx#:[id number] Mvi, Adult No.4 with Vit 630 K 10 ml Trace (Conc-1Ml/ Dose) 1 ml Sodium Acetate 30 meq Magnesium Sulfate gm 1 gm Calcium Gluconate 1 gm Potassium Acetate 20 meq In Amino Acid 5%-D15w 1,000 ml @ 90 mls/hr IV .BY DURATION [facility] Rx#:[id number] Mvi, Adult No.4 with Vit 450 990 270 K 10 ml Trace (Conc-1Ml/ Dose) 1 ml Sodium Acetate 30 meq Magnesium Sulfate gm 1 gm Calcium Gluconate 1 gm Potassium Chloride 20 meq In Amino Acid 5%-D15w 1,000 ml @ 90 mls/hr IV .BY DURATION [facility] Rx#:[id number] Piperacillin-Tazobactam 3 125 100 .375 gm In Sodium Chloride 0.9% 100 ml @ 25 mls/hr IVPB Q8H [facility] Rx#: [id number] Potassium Chloride 10 meq 100 In Water For Injection 1 100ml.bag @ 100 mls/hr IVPB Q1H [facility] Rx#: [id number] Sodium Chloride 0.9% 1, 260 220 60 000 ml @ 20 mls/hr IV . Q24H [facility] Rx#:[id number] Intake, IV Titration 250 1048 Amount Amiodarone 300 mg In 250 Dextrose 5% in Water 250 ml @ 0.5 MG/MIN 25 mls/hr IV .Q10H [facility] Rx#: [id number] Mvi, Adult No.4 with Vit 1048 K 10 ml Trace (Conc-1Ml/ Dose) 1 ml Sodium Acetate 30 meq Magnesium Sulfate gm 1 gm Calcium Gluconate 1 gm Potassium Chloride 20 meq In Amino Acid 5%-D15w 1,000 ml @ 90 mls/hr IV .BY DURATION [facility] Rx#:[id number] Output: Drainage 50 55 Right Lower Abdomen 50 55 Urine 3540 1230 450 Other: Voiding Method Indwelling Catheter Indwelling Catheter ABP, PAP, CO, CI - Last Documented Arterial Blood Pressure 168/55 - Exam Abdomen: Soft, nondistended, minimal tenderness, wick sites clean, IVELISSE serosanguineous - Labs CBC & Chem 7: 11/09/19 04:45 11/09/19 04:45 Labs: Abnormal Lab Results - Last 24 Hours (Table) 11/08/19 11/08/19 11/08/19 Range/Units 09:34 11:44 15:59 RBC (4.30-5.90) m/uL Hgb (13.0-17.5) gm/dL Hct (39.0-53.0) % RDW (11.5-15.5) % Plt Count (150-450) k/uL Lymphocytes # (1.0-4.8) k/uL Carbon Dioxide (22-30) mmol/L BUN (9-20) mg/dL Creatinine (0.66-1.25) mg/dL Glucose (74-99) mg/dL POC Glucose (mg/dL) 139 H 223 H 263 H (75-99) mg/dL Calcium (8.4-10.2) mg/dL Phosphorus (2.5-4.5) mg/dL 11/08/19 11/08/19 11/09/19 Range/Units 20:41 23:56 04:10 RBC (4.30-5.90) m/uL Hgb (13.0-17.5) gm/dL Hct (39.0-53.0) % RDW (11.5-15.5) % Plt Count (150-450) k/uL Lymphocytes # (1.0-4.8) k/uL Carbon Dioxide (22-30) mmol/L BUN (9-20) mg/dL Creatinine (0.66-1.25) mg/dL Glucose (74-99) mg/dL POC Glucose (mg/dL) 283 H 279 H 292 H (75-99) mg/dL Calcium (8.4-10.2) mg/dL Phosphorus (2.5-4.5) mg/dL 11/09/19 11/09/19 11/09/19 Range/Units 04:45 04:45 07:48 RBC 3.18 L (4.30-5.90) m/uL Hgb 9.6 L (13.0-17.5) gm/dL Hct 28.7 L (39.0-53.0) % RDW 15.8 H (11.5-15.5) % Plt Count 146 L (150-450) k/uL Lymphocytes # 0.7 L (1.0-4.8) k/uL Carbon Dioxide 33 H (22-30) mmol/L BUN 42 H (9-20) mg/dL Creatinine 2.17 H (0.66-1.25) mg/dL Glucose 274 H (74-99) mg/dL POC Glucose (mg/dL) 283 H (75-99) mg/dL Calcium 7.9 L (8.4-10.2) mg/dL Phosphorus 2.3 L (2.5-4.5) mg/dL Microbiology - Last 24 Hours (Table) 11/05/19 05:00 Blood Culture - Preliminary Blood No Growth after 96 hours 11/07/19 18:22 Blood Culture - Preliminary Blood No Growth after 24 hours 11/07/19 17:59 Blood Culture - Preliminary Blood No Growth after 24 hours Assessment and Plan (1) Bleeding duodenal ulcer Narrative/Plan: Patient overall doing fairly well. Begin clear liquid once again. May advance to full's of tolerates. Discontinue antibiotics if okay with pulmonary. Increase activity. Physical therapy. Current Visit: Yes Status: Acute Code(s): K26.4 - CHRONIC OR UNSPECIFIED DUODENAL ULCER WITH HEMORRHAGE SNOMED Code(s): 57257068
[2019-11-09] MEDS ORDERED: POTASSIUM PHOSPHATE 10 MMOL in SODIUM CHLORIDE 0.9% 100 ML IV ONE (10:00)
[2019-11-09 11:18] LABS: Glucose,Whole Blood 241 mg/dL (75-99)
[2019-11-09] MEDS: amLODIPine 10 MG TAB PO SCH (12:31)
--- NOTE | 2019-11-09 13:30 | P.PN ---
Subjective Progress Note Date: 11/09/19 Principal diagnosis: Acute upper GI bleeding secondary to do well in the ulcer requiring exploratory laparotomy and repair of duodenal ulcer postoperative day #8 on 11/08/2019 the patient is postop day #7. The patient is delirious this morning. He is confused. He is trying to reach stuff and trying to call people however he is not agitated. He is weak. He is nothing by mouth for now. TPN still running. We were concerned of GI bleed yesterday. We have not seen any further bouts of GI bleeding. The patient's hemoglobin stayed stable at 8.6. Surgical wound site is dry clean and intact. No abdominal distention. No aspiration. The patient started having episodes of low-grade fever with a temperature of 100.9.We sent 2 sets of blood cultures. We'll kept him on a combination of Zosyn and Diflucan. The triple-lumen site is clean. The chest x-rays showing improvement in infiltrates bilaterally. As such were not sure if he is truly infected or not. Also, he is having episodes of SVT. The patient had several runs of SVT yesterday with a heart rate ranging between 140 and 160. He was given adenosine which converted him and subsequently went back. Follo wing that, the patient was started on amiodarone drip which put him in sinus rhythm and the drip is still running at 0.5 mg per KG per minute. He makes excellent urine output. The IV fluids running at 20 mL an hour. He is receiving Lasix 40 mg daily basis. The edema is improved significantly. I think it's time to cut back and discontinue the Lasix for now. Reevaluated today on 11/09/2019, patient is postoperative day #8, he is less confused, less delirious, mental status seems to be much improved compared to yesterday. Although intermittently according to the nurse he seems to be a bit confused. Patient remains on TPN, and his oral intake will be advanced as tolerated. Hemoglobin today is 9.6. Lactulose are normal BUN is 42 creatinine is 2.17. Patient received a total of 9 units of packed RBCs since admission. And 1 unit of fresh frozen plasma. Patient does not seem to be in any distress, he is on 6 L nasal cannula. Chest x-ray showed minimal atelectasis at the bases. He had intermittent episodes of supraventricular tachycardia, resolved and did not require any ongoing drips except he did receive amiodarone and he did receive adenosine. Objective - Vital Signs Vital signs: Vital Signs Temp 97.8 F 11/09/19 13:03 Pulse 75 11/09/19 13:03 Resp 18 11/09/19 13:03 BP 189/74 11/09/19 13:03 Pulse Ox 96 11/09/19 13:03 Intake & Output 11/08/19 11/09/19 11/09/19 18:59 06:59 18:59 Intake Total 1869.0 2482.8 480 Output Total 3590 1230 505 Balance -1721.0 1252.8 -25 Weight 92.9 kg Intake: IV 1619.0 1434.8 480 Fat Emulsion 20% 250 ml @ 104.0 124.8 20.833 mls/hr IV DAILY@ 1400 [facility] Rx#:[id number] Fluconazole in NaCl,Iso- 50 50 Osm 100 mg In Saline 1 50ml.bag @ 50 mls/hr IVPB DAILY [facility] Rx#:[id number] Mvi, Adult No.4 with Vit 630 K 10 ml Trace (Conc-1Ml/ Dose) 1 ml Sodium Acetate 30 meq Magnesium Sulfate gm 1 gm Calcium Gluconate 1 gm Potassium Acetate 20 meq In Amino Acid 5%-D15w 1,000 ml @ 90 mls/hr IV .BY DURATION [facility] Rx#:[id number] Mvi, Adult No.4 with Vit 450 990 270 K 10 ml Trace (Conc-1Ml/ Dose) 1 ml Sodium Acetate 30 meq Magnesium Sulfate gm 1 gm Calcium Gluconate 1 gm Potassium Chloride 20 meq In Amino Acid 5%-D15w 1,000 ml @ 90 mls/hr IV .BY DURATION [facility] Rx#:[id number] Piperacillin-Tazobactam 3 125 100 .375 gm In Sodium Chloride 0.9% 100 ml @ 25 mls/hr IVPB Q8H [facility] Rx#: [id number] Potassium Chloride 10 meq 100 In Water For Injection 1 100ml.bag @ 100 mls/hr IVPB Q1H [facility] Rx#: [id number] Sodium Chloride 0.9% 1, 260 220 60 000 ml @ 20 mls/hr IV . Q24H [facility] Rx#:[id number] Intake, IV Titration 250 1048 Amount Amiodarone 300 mg In 250 Dextrose 5% in Water 250 ml @ 0.5 MG/MIN 25 mls/hr IV .Q10H [facility] Rx#: [id number] Mvi, Adult No.4 with Vit 1048 K 10 ml Trace (Conc-1Ml/ Dose) 1 ml Sodium Acetate 30 meq Magnesium Sulfate gm 1 gm Calcium Gluconate 1 gm Potassium Chloride 20 meq In Amino Acid 5%-D15w 1,000 ml @ 90 mls/hr IV .BY DURATION [facility] Rx#:[id number] Output: Drainage 50 55 Right Lower Abdomen 50 55 Urine 3540 1230 450 Other: Voiding Method Indwelling Catheter Indwelling Catheter ABP, PAP, CO, CI - Last Documented Arterial Blood Pressure 168/55 - Exam Physical Exam: Revealed a 79-year-old white male in no distress, on 6 L nasal cannula. Head: Atraumatic, normocephalic. HEENT:[Neck is supple.] [No neck masses.] [No thyromegaly.] [No JVD.] Chest: [Clear throughout, no crackles, no rhonchi, no wheezes.] Cardiac Exam: [Normal S1 and S2, no S3 gallop, no murmur.] Abdomen: soft and the patient has a mid abdominal incision with a IVELISSE drain in t he right lower quadrant. Bowel sounds are hypoactive. Extremities: [No clubbing, no edema, no cyanosis.] Neurological Exam: [No focal neurologic deficit.] Alert oriented 3. Intermittently confused according the nurse. Skin: No rashes. Psychiatric: Normal mood affect and normal mental status examination. - Labs CBC & Chem 7: 11/09/19 04:45 11/09/19 04:45 Labs: Abnormal Lab Results - Last 24 Hours (Table) 11/08/19 11/08/19 11/08/19 Range/Units 04:31 15:59 20:41 RBC (4.30-5.90) m/uL Hgb (13.0-17.5) gm/dL Hct (39.0-53.0) % RDW (11.5-15.5) % Plt Count (150-450) k/uL Lymphocytes # (1.0-4.8) k/uL Carbon Dioxide (22-30) mmol/L BUN (9-20) mg/dL Creatinine (0.66-1.25) mg/dL Glucose (74-99) mg/dL POC Glucose (mg/dL) 263 H 283 H (75-99) mg/dL Calcium (8.4-10.2) mg/dL Phosphorus (2.5-4.5) mg/dL Procalcitonin 0.44 H (0.02-0.09) ng/mL 11/08/19 11/09/19 11/09/19 Range/Units 23:56 04:10 04:45 RBC (4.30-5.90) m/uL Hgb (13.0-17.5) gm/dL Hct (39.0-53.0) % RDW (11.5-15.5) % Plt Count (150-450) k/uL Lymphocytes # (1.0-4.8) k/uL Carbon Dioxide 33 H (22-30) mmol/L BUN 42 H (9-20) mg/dL Creatinine 2.17 H (0.66-1.25) mg/dL Glucose 274 H (74-99) mg/dL POC Glucose (mg/dL) 279 H 292 H (75-99) mg/dL Calcium 7.9 L (8.4-10.2) mg/dL Phosphorus 2.3 L (2.5-4.5) mg/dL Procalcitonin (0.02-0.09) ng/mL 11/09/19 11/09/19 11/09/19 Range/Units 04:45 07:48 11:07 RBC 3.18 L (4.30-5.90) m/uL Hgb 9.6 L (13.0-17.5) gm/dL Hct 28.7 L (39.0-53.0) % RDW 15.8 H (11.5-15.5) % Plt Count 146 L (150-450) k/uL Lymphocytes # 0.7 L (1.0-4.8) k/uL Carbon Dioxide (22-30) mmol/L BUN (9-20) mg/dL Creatinine (0.66-1.25) mg/dL Glucose (74-99) mg/dL POC Glucose (mg/dL) 283 H 241 H (75-99) mg/dL Calcium (8.4-10.2) mg/dL Phosphorus (2.5-4.5) mg/dL Procalcitonin (0.02-0.09) ng/mL Microbiology - Last 24 Hours (Table) 11/05/19 05:00 Blood Culture - Preliminary Blood No Growth after 96 hours 11/07/19 18:22 Blood Culture - Preliminary Blood No Growth after 24 hours 11/07/19 17:59 Blood Culture - Preliminary Blood No Growth after 24 hours Assessment and Plan Assessment: Impression: Acute upper GI bleeding, status post expiratory laparotomy and oversewing of duodenal ulcer postoperative day #8. Acute blood loss anemia secondary to GI bleeding. Acute hypoxic respiratory failure with bilateral pleural effusions and atelectasis postoperatively, improving. Presently on 6 L nasal cannula. Chronic kidney disease with component of acute kidney injury, improving with diuretics. Obstructive sleep apnea syndrome on CPAP, we'll arrange for the patient to have his own CPAP Hypothyroidism Hyperlipidemia History of benign essential hypertension Type 2 diabetes Degenerative joint disease Intermittent episodes of supraventricular tachycardia presently in sinus rhythm Intermittent episodes of delirium, patient has history of PTSD. Recommendation: Continue present supportive care measures. Advanced diet as tolerated patient will be started on clear liquid diet as per surgery on the case. Continue TPN for the time being. Continue aggressive physical therapy. Discontinue diuretics. Continue antibiotics since his pro-calcitonin level is elevated. We'll continue to follow. Consider transfer the patient to a medical surgical floor with telemetry. Time with Patient: Less than 30
[2019-11-09] MEDS: SODIUM CHLORIDE 0.9% 1,000 ML IV SCH (14:37)
[2019-11-09] MEDS: FAT EMULSION 20% 250 ML IV SCH (14:37)
[2019-11-09 16:08] LABS: Glucose,Whole Blood 287 mg/dL (75-99)
[2019-11-09] MEDS: hydrALAZINE HCL 50 MG TAB PO SCH ×2 (16:44→20:45)
--- NOTE | 2019-11-09 17:31 | P.PN ---
Subjective Progress Note Date: 11/07/19 Principal diagnosis: GI bleed; status post EGD/colonoscopy Duodenal ulcer/ischemic colitis 10/30/2017 patient seen in follow-up in the intensive care unit; patient's family is at bedside and had multiple questions which were all addressed to her satisfaction; patient is status post EGD/colonoscopy which revealed a duodenal ulcer, that was not actively bleeding with a large anterior and clot in the second portion of the duodenum. Colonoscopy revealed ischemic colitis in the left colon with biopsies taken. However the procedure had to be aborted related to poor prep. Lab review shows hemoglobin is 6.8, patient has had 2 units of blood already, and he is receiving an additional unit of blood this morning. Hemodynamically patient is stable, receiving IV fluids, with 0.9 normal saline at a rate of 100 ML per hour. He remains on high flow oxygen, at 10 L and his pulse ox is 92- 93%. Complaints of chest pain, patient does have exertional dyspnea, today's chest x-ray has been reviewed, showing bibasilar atelectasis and bilateral pleural effusions. Patient is still getting IV fluids at a rate of 100, we will turn it was down, and give the patient a dose of IV Lasix, today's labs have been reviewed, showing white blood cell count 8.3, hemoglobin of 6.8, platelet count 293, sodium was 143, potassium was 5.4, chloride was 117, CO2 was 22, BUN was 53, creatinine was 2.94. No report of any further rectal bleeding; we will continue to monitor H&H closely and transfuse when needed 10/31/2019 patient is seen and evaluatedin follow-up in the intensive care unit. He is awake and alert in no acute distress. His hemoglobin was 6.6 earlier this morning. He is receiving his fourth unit of packed red blood cells in total this admission. He did undergo an EGD this morning and was found to have a large adherent clot along the duodenal sweep which was removed. A deep ulcerati on with active bleeding was visible. Epinephrine and Endo Clip placement obtained good hemostasis. There are large clots in the stomach. NG tube remains in place. He remains on Protonix 40 mg every 12 hours. Surgical consult was placed. He is currently afebrile. Hemodynamically stable. He is on 10 L high flow nasal cannula to maintain O2 saturations in the mid 90s. 0.9 normal saline at 50 MLS per hour. Remains on Unasyn. Chest x-ray shows some evidence of fluid volume overload and small effusions. White count 5.1. Creatinine 2.77. patient's family is at bedside and on inquiring about transferring the patient to [place]; did advise and son that patient is unstable at this time and family will have to discuss this with case management on Saturday11/01/2019 Patient is seen and evaluated in the room at bedside; patient has been having profuse rectal bleeding; patient underwent EGD which showed bleeding duodenal ulcer, Endo Clip was applied; patient had an episode of dark stools during the night but started bleeding profusely this afternoon; stat H&H is done which shows hemoglobin at 6.0; patient has been started on IV Levophed to maintain blood pressure; patient was evaluated by GI, ICU team and surgery and was recommended transferred to a tertiary care center; [facility] was consulted and transfer arrangements to [facility] surgical ICU were made; patient was deemed unstable for transfer and is taken to OR by the surgical team. 11/02/2019 patient wasadmitted to the hospital with upper GI bleed and was found have duodenal ulcer. due to active bleeding patient was taken to operating room for exploratory laparotomy. Postoperatively patient was intubated. Patient is currently remained on mechanical ventilator. chest x-ray showed bilateral pleural effusions mainly right side with atelectatic changes. Patient is on Levothroid drip and his IV FLUIDS. HEMOGLOBIN8.8, potassium 5.7, BUN/creatinine 46/ 2.89 11/03/2019 Patient iscurrentlyremained on mechanical ventilator. Hemoglobin 7.1 today. Patient initially received 8 units of PRBC transfusion preoperatively.Patient is still requiring pressor support on and off. Patient is currently on NG tube. TPN is being started today. chest x-ray showed improvement of atelectatic changes in the lung bases and small pleural effusion. patient has been afebrile. No abdominal distention. Surgical wound is intact. No leukocytosis. bUN/creatinine 43 x 3.13 11/04/2019 Patient is currently on mechanical ventilator. Postoperative day 3. Status post laparotomy and oversewing of duodenal ulcer. patient is currently on TPN. patient is on sedation holiday and is easily arousable. Hemoglobin is fairly stable at 7.9 today. No further episodes of GI bleed.Chest x-ray showed bilateral pleural effusions worse on the right. Ultrasound of the kidneys showed no evidence ofhydronephrosis. Creatinine level isimproving to 2.8 today.Pulmonary and GI is following. 11 05 2019 patient is postoperative day 4, status post laparotomy and oversewing of the urinalysis. Hemoglobin did improve to 8.7 today.patient is being continued on IV Lasix due to pleural effusion. Currently on norepinephrinewhich is being weaned off slowly. Patient is stable at creatinine level II.8.no signs of active GI bleed. IVELISSE drain is in place. Patient is being prepared for weaning prior.patient has been afebrile.Chest x- ray showedoverall stable findingssmall to moderate size right greater than left pleural effus with mild central vascular congestion. 11/06/2019 Patient was successfully extubated yesterday. Currently postoperative day 5. Status post exploratorylaparotomy and oversewing of duodenal ulcer. Hemoglobin is stable and improving at 9.8 today. Creatinine level is 3.03. p eripheral edema is improv patient was diuresing well vascular congestion. Currently onoxygen nasal canula. patient wants to eat Swallow evaluation is pending.currently on TPN chest x-ray showed bilateral pleural effusions right greater than left Patient has been Afebrile 11/07/2019 Patient denied any complaints of abdominal pain. Hemoglobin is stable and improved to 9.7. Hemodynamically stable. Off pressor support. Status post explored laparotomy and oversewing of duodenal ulcer due to GI bleed. Patient was extubated. urrently patient is tolerating clear liquids. Does have generalized weakness Is improving. Currently on IV Lasix. Chest x-ray showed improvement in volume status without any significant abnormalities. Mild pulmonary vascular congestion without yaya pulmonary laura a. patient has been afebrile.patient is awake alert and oriented. sometimes paranoid.still on TPN for nutritional support. Currently maintaining sinus rhythm. current medications reviewed. Active Medications Albuterol/Ipratropium (Duoneb 0.5 Mg-3 Mg/3 Ml Soln) 3 ml INHALATION RT-QID [facility] Last Admin: 11/06/19 19:30 Dose: 3 ml Documented by: Artificial Tears (Artificial Tear Drops) 1 drops BOTH EYES QID PRN PRN Reason: Dry Eye(s) Last Admin: 11/05/19 04:14 Dose: 1 drops Documented by: Atorvastatin Calcium (Lipitor) 10 mg PO HS [facility] Last Admin: 11/06/19 21:58 Dose: 10 mg Documented by: Budesonide (Pulmicort) 1 mg INHALATION RT-BID [facility] Last Admin: 11/06/19 19:30 Dose: 1 mg Documented by: Formoterol Fumarate (Perforomist) 20 mcg INHALATION RT-BID [facility] Last Admin: 11/06/19 19:30 Dose: 20 mcg Documented by: Furosemide (Lasix) 40 mg IV DAILY [facility] Hydromorphone HCl (Dilaudid) 1 mg IVP Q2HR PRN PRN Reason: Pain Last Admin: 11/06/19 05:37 Dose: 1 mg Documented by: Hydromorphone HCl (Dilaudid) 0.5 mg IVP Q2H PRN PRN Reason: Pain Last Admin: 11/06/19 00:18 Dose: 0.5 mg Documented by: Sodium Chloride (Saline 0.9%) 1,000 mls @ 20 mls/hr IV .Q24H [facility] Last Admin: 11/05/19 16:26 Dose: 20 mls/hr Documented by: Norepinephrine Bitartrate 8 mg (/ Sodium Chloride) 258 mls @ 9.259 mls/hr IV .Q24H [facility]; Protocol Last Admin: 11/06/19 14:59 Dose: Not Given Documented by: Fluconazole/Sodium Chloride (100 mg/ IV Solution) 50 mls @ 50 mls/hr IVPB DAILY [facility] Last Admin: 11/06/19 09:18 Dose: 50 mls/hr Documented by: Piperacillin Sod/Tazobactam (Sod 3.375 gm/ Sodium Chloride) 100 mls @ 25 mls/hr IVPB Q8H [facility] Last Admin: 11/06/19 21:57 Dose: 25 mls/hr Documented by: Parenteral Vitamin Supplement 10 ml/ Chromium/Copper/Manganese/Seleni/Zn 1 ml/Sodium Acetate 30 meq/Magnesium Sulfate 0.5 gm/Calcium Gluconate 1 gm/ Amino Acids/Dextrose 1,037 mls @ 90 mls/hr IV .[id number] [facility] Stop: 11/07/19 20:59 Last Admin: 11/06/19 09:24 Dose: 60 mls/hr Documented by: Parenteral Vitamin Supplement 10 ml/ Chromium/Copper/Manganese/Seleni/Zn 1 ml/Sodium Acetate 30 meq/Magnesium Sulfate 1 gm/Calcium Gluconate 1 gm/Potassium Acetate 20 meq/Amino Acids/Dextrose 1,048 mls @ 90 mls/hr IV .BY DURATION [facility] Sodium Acetate 30 meq/Magnesium Sulfate 1 gm/Calcium Gluconate 1 gm/Potassium Acetate 20 meq/Amino Acids/Dextrose 1,037 mls @ 90 mls/hr IV .BY DURATION [facility] Fat Emulsion Intravenous (Lipids 20%) 250 mls @ 20.833 mls/hr IV DAILY@1200 [facility] Fat Emulsion Intravenous (Lipids 20%) 250 mls @ 20.833 mls/hr IV DAILY@1200 [facility] Last Admin: 11/06/19 13:04 Dose: 20.833 mls/hr Documented by: Insulin Aspart (Novolog) 0 unit SQ Q4H [facility]; Protocol Last Admin: 11/06/19 21:58 Dose: 3 unit Documented by: Levothyroxine Sodium (Synthroid) 125 mcg PO DAILY@0630 [facility] Last Admin: 11/06/19 06:19 Dose: 125 mcg Documented by: Levothyroxine Sodium (Synthroid Ivp) 75 mcg IV DAILY [facility] Last Admin: 11/06/19 09:30 Dose: 75 mcg Documented by: Lidocaine (Lidoderm) 1 patch TOPICAL DAILY [facility] Last Admin: 11/06/19 09:12 Dose: 1 patch Documented by: Linagliptin (Tradjenta) 5 mg PO DAILY [facility] Last Admin: 11/06/19 09:04 Dose: 5 mg Documented by: Liothyronine Sodium (Cytomel) 5 mcg PO DAILY [facility] Last Admin: 11/06/19 09:04 Dose: 5 mcg Documented by: Metoprolol Tartrate (Lopressor) 50 mg PO BID [facility] Last Admin: 11/06/19 21:58 Dose: 50 mg Documented by: Miscellaneous Information (Potassium Per Protocol) 1 each MISCELLANE DAILY PRN; Protocol PRN Reason: Per Protocol Naloxone HCl (Narcan) 0.2 mg IV Q2M PRN PRN Reason: Opioid Reversal Nicotine (Habitrol 14mg/24hr Patch) 1 patch TRANSDERM DAILY [facility] Last Admin: 11/06/19 09:16 Dose: 1 patch Documented by: Pantoprazole Sodium (Protonix) 40 mg IV BID [facility] Last Admin: 11/06/19 21:58 Dose: 40 mg Documented by: Pregabalin (Lyrica) 50 mg PO BID [facility] Last Admin: 11/06/19 21:59 Dose: 50 mg Documented by: Objective - Vital Signs Vital signs: Vital Signs Temp 98.4 F 11/07/19 12:00 Pulse 85 11/07/19 13:43 Resp 20 11/07/19 13:00 BP 137/89 11/07/19 12:00 Pulse Ox 93 L 11/07/19 13:00 Intake & Output 11/06/19 11/07/19 11/07/19 18:59 06:59 18:59 Intake Total 1424.98 2124.83 940.8 Output Total 3250 3075 2115 Balance -1825.02 -950.17 -1174.2 Weight 103.9 kg 97.4 kg Intake: IV 1100 1154.0 940.8 Fat Emulsion 20% 250 ml @ 104.0 20.8 20.833 mls/hr IV DAILY@ 1200 [facility] Rx#:[id number] Fluconazole in NaCl,Iso- 50 50 Osm 100 mg In Saline 1 50ml.bag @ 50 mls/hr IVPB DAILY [facility] Rx#:[id number] Mvi, Adult No.4 with Vit 720 480 K 10 ml Trace (Conc-1Ml/ Dose) 1 ml Sodium Acetate 30 meq Magnesium Sulfate gm 0.5 gm Calcium Gluconate 1 gm In Amino Acid 5%-D15w 1,000 ml @ 60 mls/hr IV .[id number] [facility] Rx#:[id number] Mvi, Adult No.4 with Vit 270 630 K 10 ml Trace (Conc-1Ml/ Dose) 1 ml Sodium Acetate 30 meq Magnesium Sulfate gm 0.5 gm Calcium Gluconate 1 gm In Amino Acid 5%-D15w 1,000 ml @ 90 mls/hr IV .[id number] [facility] Rx#:[id number] Piperacillin-Tazobactam 3 100 100 100 .375 gm In Sodium Chloride 0.9% 100 ml @ 25 mls/hr IVPB Q8H [facility] Rx#: [id number] Sodium Chloride 0.9% 1, 230 200 140 000 ml @ 20 mls/hr IV . Q24H [facility] Rx#:[id number] Intake, IV Titration 324.98 20.83 Amount Fat Emulsion 20% 250 ml @ 124.98 20.83 20.833 mls/hr IV DAILY@ 1200 [facility] Rx#:[id number] Magnesium Sulfate-D5w Pmx 200 1 gm In Dextrose/Water 1 100ml.bag @ 100 mls/hr IVPB Q1H [facility] Rx#: [id number] Oral 950 Output: Drainage 55 40 Right Lower Abdomen 55 40 Urine 3250 3020 2075 Other: Voiding Method Indwelling Catheter Indwelling Catheter # Bowel Movements 1 1 ABP, PAP, CO, CI - Last Documented Arterial Blood Pressure 168/55 - Exam PHYSICAL EXAMINATION: PHYSICAL EXAMINATION: Patient is lying in the bed comfortably, no acute distress, awake alert and oriented.lethargic and very weak.. HEENT: Normocephalic. Neck is supple. Pupils reactive. Nostrils clear. Oral cavity is moist. Ears reveal no drainage. Neck reveals no JVD, carotid bruits, or thyromegaly. CHEST EXAMINATION: Trachea is central. Symmetrical expansion. bibasilar diminished air entry and crackles. No wheezing.. CARDIAC: Normal S1, S2 with no gallops. No murmurs ABDOMEN: Soft. Bowel sounds normal. No organomegaly. No abdominal bruits. Extremities:2+ edema. No clubbing or cyanosis Neurologically awake, alert, oriented x3 paranoid sometimes. Able to move extremitieswhile in bed. No focal deficits noted Skin: No rash or skin lesions. Psychiatric: Coperative. could not be assessed completely. Musculoskeletal: No joint swelling or deformity. - Labs CBC & Chem 7: 11/09/19 04:45 11/09/19 04:45 Labs: Abnormal Lab Results - Last 24 Hours (Table) 11/06/19 11/06/19 11/06/19 Range/Units 17:07 18:34 21:12 RBC 3.25 L (4.30-5.90) m/uL Hgb 10.6 L (13.0-17.5) gm/dL Hct 29.1 L (39.0-53.0) % RDW 16.4 H (11.5-15.5) % Chloride (98-107) mmol/L BUN (9-20) mg/dL Creatinine (0.66-1.25) mg/dL Glucose (74-99) mg/dL POC Glucose (mg/dL) 216 H 217 H (75-99) mg/dL Calcium (8.4-10.2) mg/dL 11/06/19 11/07/19 11/07/19 Range/Units 23:56 04:29 05:22 RBC 2.98 L (4.30-5.90) m/uL Hgb 9.1 L D (13.0-17.5) gm/dL Hct 26.3 L (39.0-53.0) % RDW 16.3 H (11.5-15.5) % Chloride (98-107) mmol/L BUN (9-20) mg/dL Creatinine (0.66-1.25) mg/dL Glucose (74-99) mg/dL POC Glucose (mg/dL) 202 H 164 H (75-99) mg/dL Calcium (8.4-10.2) mg/dL 11/07/19 11/07/19 11/07/19 Range/Units 05:22 06:05 07:59 RBC (4.30-5.90) m/uL Hgb (13.0-17.5) gm/dL Hct (39.0-53.0) % RDW (11.5-15.5) % Chloride 110 H (98-107) mmol/L BUN 45 H (9-20) mg/dL Creatinine 2.40 H (0.66-1.25) mg/dL Glucose 150 H (74-99) mg/dL POC Glucose (mg/dL) 164 H 139 H (75-99) mg/dL Calcium 8.1 L (8.4-10.2) mg/dL 11/07/19 Range/Units 12:11 RBC (4.30-5.90) m/uL Hgb (13.0-17.5) gm/dL Hct (39.0-53.0) % RDW (11.5-15.5) % Chloride (98-107) mmol/L BUN (9-20) mg/dL Creatinine (0.66-1.25) mg/dL Glucose (74-99) mg/dL POC Glucose (mg/dL) 123 H (75-99) mg/dL Calcium (8.4-10.2) mg/dL Microbiology - Last 24 Hours (Table) 11/05/19 05:00 Blood Culture - Preliminary Blood No Growth after 48 hours Assessment and Plan Assessment: Acute blood loss anemia secondary to duodenal ulcer. Status post exploratory laparotomy and oversewing of duodenal ulcer on 11 01 2019 - Patient is status post EGD/colonoscopy which revealed duodenal ulcer without any active bleeding with the large interior clot in the second portion of duodenum; colonoscopy revealed ischemic colitis and left colon. Patient is presently on Protonix IV twice a day -Acute hypoxic respiratory failure with bilateral pleural effusion and atelectasis. Currently on mechanical ventilator.extubated on 11 05 2019 -coronary artery disease continue with metoprolol hold off rest of the blood pressure medications and aspirin because of GI bleed -Hypertension patient is presently hypotensive secondary to GI bleed holding off on lisinopril, hydralazine. -acute kidney injury. Possible ATN. Creatinine today is 3.03 -acute blood loss anemia due to GI bleed. 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 -PTSD and paranoid ideation. -Continued nicotine use: -DVT prophylaxis with SCDs due to GI leed plan: patient is currently extubated and weaned off frompressor support.continued on IV diuresis due to pleural effusion. Monitor renal function. continue with antibioticsin the form ofZosyn. Continue with Protonix. started on oral diet. passed Swallow evaluation. Continue with TPN pulmonary and General surgery is following.prognosis is guarded at this time.discussed with his at bedside. Time with Patient: Greater than 30
--- NOTE | 2019-11-09 17:35 | P.PN ---
Subjective Progress Note Date: 11/08/19 Principal diagnosis: GI bleed; status post EGD/colonoscopy Duodenal ulcer/ischemic colitis 10/30/2017 patient seen in follow-up in the intensive care unit; patient's family is at bedside and had multiple questions which were all addressed to her satisfaction; patient is status post EGD/colonoscopy which revealed a duodenal ulcer, that was not actively bleeding with a large anterior and clot in the second portion of the duodenum. Colonoscopy revealed ischemic colitis in the left colon with biopsies taken. However the procedure had to be aborted related to poor prep. Lab review shows hemoglobin is 6.8, patient has had 2 units of blood already, and he is receiving an additional unit of blood this morning. Hemodynamically patient is stable, receiving IV fluids, with 0.9 normal saline at a rate of 100 ML per hour. He remains on high flow oxygen, at 10 L and his pulse ox is 92- 93%. Complaints of chest pain, patient does have exertional dyspnea, today's chest x-ray has been reviewed, showing bibasilar atelectasis and bilateral pleural effusions. Patient is still getting IV fluids at a rate of 100, we will turn it was down, and give the patient a dose of IV Lasix, today's labs have been reviewed, showing white blood cell count 8.3, hemoglobin of 6.8, platelet count 293, sodium was 143, potassium was 5.4, chloride was 117, CO2 was 22, BUN was 53, creatinine was 2.94. No report of any further rectal bleeding; we will continue to monitor H&H closely and transfuse when needed 10/31/2019 patient is seen and evaluatedin follow-up in the intensive care unit. He is awake and alert in no acute distress. His hemoglobin was 6.6 earlier this morning. He is receiving his fourth unit of packed red blood cells in total this admission. He did undergo an EGD this morning and was found to have a large adherent clot along the duodenal sweep which was removed. A deep ulcerati on with active bleeding was visible. Epinephrine and Endo Clip placement obtained good hemostasis. There are large clots in the stomach. NG tube remains in place. He remains on Protonix 40 mg every 12 hours. Surgical consult was placed. He is currently afebrile. Hemodynamically stable. He is on 10 L high flow nasal cannula to maintain O2 saturations in the mid 90s. 0.9 normal saline at 50 MLS per hour. Remains on Unasyn. Chest x-ray shows some evidence of fluid volume overload and small effusions. White count 5.1. Creatinine 2.77. patient's family is at bedside and on inquiring about transferring the patient to OR; did advise and son that patient is unstable at this time and family will have to discuss this with case management on Saturday11/01/2019 Patient is seen and evaluated in the room at bedside; patient has been having profuse rectal bleeding; patient underwent EGD which showed bleeding duodenal ulcer, Endo Clip was applied; patient had an episode of dark stools during the night but started bleeding profusely this afternoon; stat H&H is done which shows hemoglobin at 6.0; patient has been started on IV Levophed to maintain blood pressure; patient was evaluated by GI, ICU team and surgery and was recommended transferred to a tertiary care center; [facility] was consulted and transfer arrangements to [facility] surgical ICU were made; patient was deemed unstable for transfer and is taken to OR by the surgical team. 11/02/2019 patient wasadmitted to the hospital with upper GI bleed and was found have duodenal ulcer. due to active bleeding patient was taken to operating room for exploratory laparotomy. Postoperatively patient was intubated. Patient is currently remained on mechanical ventilator. chest x-ray showed bilateral pleural effusions mainly right side with atelectatic changes. Patient is on Levothroid drip and his IV FLUIDS. HEMOGLOBIN8.8, potassium 5.7, BUN/creatinine 46/ 2.89 11/03/2019 Patient iscurrentlyremained on mechanical ventilator. Hemoglobin 7.1 today. Patient initially received 8 units of PRBC transfusion preoperatively.Patient is still requiring pressor support on and off. Patient is currently on NG tube. TPN is being started today. chest x-ray showed improvement of atelectatic changes in the lung bases and small pleural effusion. patient has been afebrile. No abdominal distention. Surgical wound is intact. No leukocytosis. bUN/creatinine 43 x 3.13 11/04/2019 Patient is currently on mechanical ventilator. Postoperative day 3. Status post laparotomy and oversewing of duodenal ulcer. patient is currently on TPN. patient is on sedation holiday and is easily arousable. Hemoglobin is fairly stable at 7.9 today. No further episodes of GI bleed.Chest x-ray showed bilateral pleural effusions worse on the right. Ultrasound of the kidneys showed no evidence ofhydronephrosis. Creatinine level isimproving to 2.8 today.Pulmonary and GI is following. 11 05 2019 patient is postoperative day 4, status post laparotomy and oversewing of the urinalysis. Hemoglobin did improve to 8.7 today.patient is being continued on IV Lasix due to pleural effusion. Currently on norepinephrinewhich is being weaned off slowly. Patient is stable at creatinine level II.8.no signs of active GI bleed. IVELISSE drain is in place. Patient is being prepared for weaning prior.patient has been afebrile.Chest x- ray showedoverall stable findingssmall to moderate size right greater than left pleural effus with mild central vascular congestion. 11/06/2019 Patient was successfully extubated yesterday. Currently postoperative day 5. Status post exploratorylaparotomy and oversewing of duodenal ulcer. Hemoglobin is stable and improving at 9.8 today. Creatinine level is 3.03. p eripheral edema is improv patient was diuresing well vascular congestion. Currently onoxygen nasal canula. patient wants to eat Swallow evaluation is pending.currently on TPN chest x-ray showed bilateral pleural effusions right greater than left Patient has been Afebrile 11/07/2019 Patient denied any complaints of abdominal pain. Hemoglobin is stable and improved to 9.7. Hemodynamically stable. Off pressor support. Status post explored laparotomy and oversewing of duodenal ulcer due to GI bleed. Patient was extubated. urrently patient is tolerating clear liquids. Does have generalized weakness Is improving. Currently on IV Lasix. Chest x-ray showed improvement in volume status without any significant abnormalities. Mild pulmonary vascular congestion without yaya pulmonary laura a. patient has been afebrile.patient is awake alert and oriented. sometimes paranoid.still on TPN for nutritional support. Currently maintaining sinus rhythm. 11/08/2019 Patient is awake alert but confused. Tolerating liquids. No complaints of nausea or vomiting. Patient is still on TPN. Hemoglobin is at 8.6 today. Patient is status post exploratory laparotomy and oversewing of duodenal ulce r.postoperative 7 The patient had several runs of SVT yesterday with a heart rate ranging between 140 and 160. He was given adenosine which converted him and subsequently went back. Following that, the patient was started on amiodarone drip which put him in sinus rhythm and the drip is still running at 0.5 mg per KG per minute. continued onIV Lasix.leg swelling is improving. Patient has been afebrile. Currently on antibiotics in the form of Zosyn and Diflucan. Chest x-ray showedimproved infiltrates. current medications reviewed. Active Medications Albuterol/Ipratropium (Duoneb 0.5 Mg-3 Mg/3 Ml Soln) 3 ml INHALATION RT-QID [facility] Last Admin: 11/06/19 19:30 Dose: 3 ml Documented by: Artificial Tears (Artificial Tear Drops) 1 drops BOTH EYES QID PRN PRN Reason: Dry Eye(s) Last Admin: 11/05/19 04:14 Dose: 1 drops Documented by: Atorvastatin Calcium (Lipitor) 10 mg PO HS [facility] Last Admin: 11/06/19 21:58 Dose: 10 mg Documented by: Budesonide (Pulmicort) 1 mg INHALATION RT-BID [facility] Last Admin: 11/06/19 19:30 Dose: 1 mg Documented by: Formoterol Fumarate (Perforomist) 20 mcg INHALATION RT-BID [facility] Last Admin: 11/06/19 19:30 Dose: 20 mcg Documented by: Furosemide (Lasix) 40 mg IV DAILY [facility] Hydromorphone HCl (Dilaudid) 1 mg IVP Q2HR PRN PRN Reason: Pain Last Admin: 11/06/19 05:37 Dose: 1 mg Documented by: Hydromorphone HCl (Dilaudid) 0.5 mg IVP Q2H PRN PRN Reason: Pain Last Admin: 11/06/19 00:18 Dose: 0.5 mg Documented by: Sodium Chloride (Saline 0.9%) 1,000 mls @ 20 mls/hr IV .Q24H [facility] Last Admin: 11/05/19 16:26 Dose: 20 mls/hr Documented by: Norepinephrine Bitartrate 8 mg (/ Sodium Chloride) 258 mls @ 9.259 mls/hr IV .Q24H [facility]; Protocol Last Admin: 11/06/19 14:59 Dose: Not Given Documented by: Fluconazole/Sodium Chloride (100 mg/ IV Solution) 50 mls @ 50 mls/hr IVPB DAILY [facility] Last Admin: 11/06/19 09:18 Dose: 50 mls/hr Documented by: Piperacillin Sod/Tazobactam (Sod 3.375 gm/ Sodium Chloride) 100 mls @ 25 mls/hr IVPB Q8H [facility] Last Admin: 11/06/19 21:57 Dose: 25 mls/hr Documented by: Parenteral Vitamin Supplement 10 ml/ Chromium/Copper/Manganese/Seleni/Zn 1 ml/Sodium Acetate 30 meq/Magnesium Sulfate 0.5 gm/Calcium Gluconate 1 gm/ Amino Acids/Dextrose 1,037 mls @ 90 mls/hr IV .[id number] [facility] Stop: 11/07/19 20:59 Last Admin: 11/06/19 09:24 Dose: 60 mls/hr Documented by: Parenteral Vitamin Supplement 10 ml/ Chromium/Copper/Manganese/Seleni/Zn 1 ml/Sodium Acetate 30 meq/Magnesium Sulfate 1 gm/Calcium Gluconate 1 gm/Potassium Acetate 20 meq/Amino Acids/Dextrose 1,048 mls @ 90 mls/hr IV .BY DURATION [facility] Sodium Acetate 30 meq/Magnesium Sulfate 1 gm/Calcium Gluconate 1 gm/Potassium Acetate 20 meq/Amino Acids/Dextrose 1,037 mls @ 90 mls/hr IV .BY DURATION [facility] Fat Emulsion Intravenous (Lipids 20%) 250 mls @ 20.833 mls/hr IV DAILY@1200 [facility] Fat Emulsion Intravenous (Lipids 20%) 250 mls @ 20.833 mls/hr IV DAILY@1200 [facility] Last Admin: 11/06/19 13:04 Dose: 20.833 mls/hr Documented by: Insulin Aspart (Novolog) 0 unit SQ Q4H [facility]; Protocol Last Admin: 11/06/19 21:58 Dose: 3 unit Documented by: Levothyroxine Sodium (Synthroid) 125 mcg PO DAILY@0630 [facility] Last Admin: 11/06/19 06:19 Dose: 125 mcg Documented by: Levothyroxine Sodium (Synthroid Ivp) 75 mcg IV DAILY [facility] Last Admin: 11/06/19 09:30 Dose: 75 mcg Documented by: Lidocaine (Lidoderm) 1 patch TOPICAL DAILY [facility] Last Admin: 11/06/19 09:12 Dose: 1 patch Documented by: Linagliptin (Tradjenta) 5 mg PO DAILY [facility] Last Admin: 11/06/19 09:04 Dose: 5 mg Documented by: Liothyronine Sodium (Cytomel) 5 mcg PO DAILY [facility] Last Admin: 11/06/19 09:04 Dose: 5 mcg Documented by: Metoprolol Tartrate (Lopressor) 50 mg PO BID [facility] Last Admin: 11/06/19 21:58 Dose: 50 mg Documented by: Miscellaneous Information (Potassium Per Protocol) 1 each MISCELLANE DAILY PRN; Protocol PRN Reason: Per Protocol Naloxone HCl (Narcan) 0.2 mg IV Q2M PRN PRN Reason: Opioid Reversal Nicotine (Habitrol 14mg/24hr Patch) 1 patch TRANSDERM DAILY [facility] Last Admin: 11/06/19 09:16 Dose: 1 patch Documented by: Pantoprazole Sodium (Protonix) 40 mg IV BID [facility] Last Admin: 11/06/19 21:58 Dose: 40 mg Documented by: Pregabalin (Lyrica) 50 mg PO BID [facility] Last Admin: 11/06/19 21:59 Dose: 50 mg Documented by: Objective - Vital Signs Vital signs: Vital Signs Temp 97.8 F 11/08/19 20:00 Pulse 96 11/08/19 21:00 Resp 18 11/08/19 21:00 BP 159/60 11/08/19 21:00 Pulse Ox 96 11/08/19 21:00 Intake & Output 11/08/19 11/08/19 11/09/19 06:59 18:59 06:59 Intake Total 1535.6 1869.0 361.6 Output Total 1445 3590 350 Balance 90.6 -1721.0 11.6 Weight 94.8 kg Intake: IV 1535.6 1619.0 361.6 Fat Emulsion 20% 250 ml @ 145.6 20.833 mls/hr IV DAILY@ 1200 [facility] Rx#:[id number] Fat Emulsion 20% 250 ml @ 104.0 41.6 20.833 mls/hr IV DAILY@ 1400 [facility] Rx#:[id number] Fluconazole in NaCl,Iso- 50 Osm 100 mg In Saline 1 50ml.bag @ 50 mls/hr IVPB DAILY [facility] Rx#:[id number] Mvi, Adult No.4 with Vit 900 K 10 ml Trace (Conc-1Ml/ Dose) 1 ml Sodium Acetate 30 meq Magnesium Sulfate gm 0.5 gm Calcium Gluconate 1 gm In Amino Acid 5%-D15w 1,000 ml @ 90 mls/hr IV .[id number] [facility] Rx#:[id number] Mvi, Adult No.4 with Vit 630 K 10 ml Trace (Conc-1Ml/ Dose) 1 ml Sodium Acetate 30 meq Magnesium Sulfate gm 1 gm Calcium Gluconate 1 gm Potassium Acetate 20 meq In Amino Acid 5%-D15w 1,000 ml @ 90 mls/hr IV .BY DURATION [facility] Rx#:[id number] Mvi, Adult No.4 with Vit 450 180 K 10 ml Trace (Conc-1Ml/ Dose) 1 ml Sodium Acetate 30 meq Magnesium Sulfate gm 1 gm Calcium Gluconate 1 gm Potassium Chloride 20 meq In Amino Acid 5%-D15w 1,000 ml @ 90 mls/hr IV .BY DURATION [facility] Rx#:[id number] Piperacillin-Tazobactam 3 150 125 100 .375 gm In Sodium Chloride 0.9% 100 ml @ 25 mls/hr IVPB Q8H [facility] Rx#: [id number] Potassium Chloride 20 meq 100 In Water For Injection 1 100ml.bag @ 50 mls/hr IVPB Q2H [facility] Rx#: [id number] Sodium Chloride 0.9% 1, 240 260 40 000 ml @ 20 mls/hr IV . Q24H [facility] Rx#:[id number] Intake, IV Titration 250 Amount Amiodarone 300 mg In 250 Dextrose 5% in Water 250 ml @ 0.5 MG/MIN 25 mls/hr IV .Q10H [facility] Rx#: [id number] Output: Drainage 25 50 Right Lower Abdomen 25 50 Urine 1420 3540 350 Other: Voiding Method Indwelling Catheter Indwelling Catheter Indwelling Catheter ABP, PAP, CO, CI - Last Documented Arterial Blood Pressure 168/55 - Exam PHYSICAL EXAMINATION: Patient is lying in the bed comfortably, no acute distress, awake alert and oriented.lethargic and very weak.. HEENT: Normocephalic. Neck is supple. Pupils reactive. Nostrils clear. Oral cavity is moist. Ears reveal no drainage. Neck reveals no JVD, carotid bruits, or thyromegaly. CHEST EXAMINATION: Trachea is central. Symmetrical expansion. bibasilar diminis hed air entry and crackles. No wheezing.. CARDIAC: Normal S1, S2 with no gallops. No murmurs ABDOMEN: Soft. Bowel sounds normal. No organomegaly. No abdominal bruits. Extremities:2+ edema. No clubbing or cyanosis Neurologically awake, alert, oriented x3 paranoid sometimes. Able to move extremitieswhile in bed. No focal deficits noted Skin: No rash or skin lesions. Psychiatric: Coperative. could not be assessed completely. Musculoskeletal: No joint swelling or deformity. - Labs CBC & Chem 7: 11/09/19 04:45 11/09/19 04:45 Labs: Abnormal Lab Results - Last 24 Hours (Table) 11/08/19 11/08/19 11/08/19 Range/Units 00:00 04:00 04:31 RBC 2.82 L (4.30-5.90) m/uL Hgb 8.6 L (13.0-17.5) gm/dL Hct 25.4 L (39.0-53.0) % RDW 15.8 H (11.5-15.5) % Carbon Dioxide (22-30) mmol/L BUN (9-20) mg/dL Creatinine (0.66-1.25) mg/dL Glucose (74-99) mg/dL POC Glucose (mg/dL) 311 H 317 H (75-99) mg/dL Calcium (8.4-10.2) mg/dL 11/08/19 11/08/19 11/08/19 Range/Units 04:31 09:34 11:44 RBC (4.30-5.90) m/uL Hgb (13.0-17.5) gm/dL Hct (39.0-53.0) % RDW (11.5-15.5) % Carbon Dioxide 31 H (22-30) mmol/L BUN 45 H (9-20) mg/dL Creatinine 2.16 H (0.66-1.25) mg/dL Glucose 289 H (74-99) mg/dL POC Glucose (mg/dL) 139 H 223 H (75-99) mg/dL Calcium 7.8 L (8.4-10.2) mg/dL 11/08/19 11/08/19 Range/Units 15:59 20:41 RBC (4.30-5.90) m/uL Hgb (13.0-17.5) gm/dL Hct (39.0-53.0) % RDW (11.5-15.5) % Carbon Dioxide (22-30) mmol/L BUN (9-20) mg/dL Creatinine (0.66-1.25) mg/dL Glucose (74-99) mg/dL POC Glucose (mg/dL) 263 H 283 H (75-99) mg/dL Calcium (8.4-10.2) mg/dL Microbiology - Last 24 Hours (Table) 11/07/19 18:22 Blood Culture - Preliminary Blood No Growth after 24 hours 11/07/19 17:59 Blood Culture - Preliminary Blood No Growth after 24 hours 11/05/19 05:00 Blood Culture - Preliminary Blood No Growth after 72 hours Assessment and Plan Assessment: Acute blood loss anemia secondary to duodenal ulcer. Status post exploratory laparotomy and oversewing of duodenal ulcer on 11 01 2019 - Patient is status post EGD/colonoscopy which revealed duodenal ulcer without any active bleeding with the large interior clot in the second portion of duodenum; colonoscopy revealed ischemic colitis and left colon. Patient is presently on Protonix IV twice a day -Acute hypoxic respiratory failure with bilateral pleural effusion and atelectasis. Currently on mechanical ventilator.extubated on 11 05 2019 -coronary artery disease continue with metoprolol hold off rest of the blood pressure medications and aspirin because of GI bleed -Hypertension patient is presently hypotensive secondary to GI bleed holding off on lisinopril, hydralazine. -acute kidney injury. Possible ATN. Creatinine today is 3.03 -acute blood loss anemia due to GI bleed. 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 -PTSD and paranoid ideation. -Continued nicotine use: -DVT prophylaxis with SCDs due to GI leed plan: patient is currently extubated and weaned off frompressor support.continued on IV diuresis due to pleural effusion. Monitor renal function. continue with antibioticsin the form ofZosyn. Continue with Protonix. started on oral diet. passed Swallow evaluation. Continue with TPN pulmonary and General surgery is following.prognosis is guarded at this time.discussed with his at bedside. Time with Patient: Greater than 30
--- NOTE | 2019-11-09 17:41 | P.PN ---
Subjective Progress Note Date: 11/09/19 Principal diagnosis: GI bleed; status post EGD/colonoscopy Duodenal ulcer/ischemic colitis 10/30/2017 patient seen in follow-up in the intensive care unit; patient's family is at bedside and had multiple questions which were all addressed to her satisfaction; patient is status post EGD/colonoscopy which revealed a duodenal ulcer, that was not actively bleeding with a large anterior and clot in the second portion of the duodenum. Colonoscopy revealed ischemic colitis in the left colon with biopsies taken. However the procedure had to be aborted related to poor prep. Lab review shows hemoglobin is 6.8, patient has had 2 units of blood already, and he is receiving an additional unit of blood this morning. Hemodynamically patient is stable, receiving IV fluids, with 0.9 normal saline at a rate of 100 ML per hour. He remains on high flow oxygen, at 10 L and his pulse ox is 92- 93%. Complaints of chest pain, patient does have exertional dyspnea, today's chest x-ray has been reviewed, showing bibasilar atelectasis and bilateral pleural effusions. Patient is still getting IV fluids at a rate of 100, we will turn it was down, and give the patient a dose of IV Lasix, today's labs have been reviewed, showing white blood cell count 8.3, hemoglobin of 6.8, platelet count 293, sodium was 143, potassium was 5.4, chloride was 117, CO2 was 22, BUN was 53, creatinine was 2.94. No report of any further rectal bleeding; we will continue to monitor H&H closely and transfuse when needed 10/31/2019 patient is seen and evaluatedin follow-up in the intensive care unit. He is awake and alert in no acute distress. His hemoglobin was 6.6 earlier this morning. He is receiving his fourth unit of packed red blood cells in total this admission. He did undergo an EGD this morning and was found to have a large adherent clot along the duodenal sweep which was removed. A deep ulcerati on with active bleeding was visible. Epinephrine and Endo Clip placement obtained good hemostasis. There are large clots in the stomach. NG tube remains in place. He remains on Protonix 40 mg every 12 hours. Surgical consult was placed. He is currently afebrile. Hemodynamically stable. He is on 10 L high flow nasal cannula to maintain O2 saturations in the mid 90s. 0.9 normal saline at 50 MLS per hour. Remains on Unasyn. Chest x-ray shows some evidence of fluid volume overload and small effusions. White count 5.1. Creatinine 2.77. patient's family is at bedside and on inquiring about transferring the patient to [place]; did advise and son that patient is unstable at this time and family will have to discuss this with case management on Saturday11/01/2019 Patient is seen and evaluated in the room at bedside; patient has been having profuse rectal bleeding; patient underwent EGD which showed bleeding duodenal ulcer, Endo Clip was applied; patient had an episode of dark stools during the night but started bleeding profusely this afternoon; stat H&H is done which shows hemoglobin at 6.0; patient has been started on IV Levophed to maintain blood pressure; patient was evaluated by GI, ICU team and surgery and was recommended transferred to a tertiary care center; [facility] was consulted and transfer arrangements to [facility] surgical ICU were made; patient was deemed unstable for transfer and is taken to OR by the surgical team. 11/02/2019 patient wasadmitted to the hospital with upper GI bleed and was found have duodenal ulcer. due to active bleeding patient was taken to operating room for exploratory laparotomy. Postoperatively patient was intubated. Patient is currently remained on mechanical ventilator. chest x-ray showed bilateral pleural effusions mainly right side with atelectatic changes. Patient is on Levothroid drip and his IV FLUIDS. HEMOGLOBIN8.8, potassium 5.7, BUN/creatinine 46/ 2.89 11/03/2019 Patient iscurrentlyremained on mechanical ventilator. Hemoglobin 7.1 today. Patient initially received 8 units of PRBC transfusion preoperatively.Patient is still requiring pressor support on and off. Patient is currently on NG tube. TPN is being started today. chest x-ray showed improvement of atelectatic changes in the lung bases and small pleural effusion. patient has been afebrile. No abdominal distention. Surgical wound is intact. No leukocytosis. bUN/creatinine 43 x 3.13 11/04/2019 Patient is currently on mechanical ventilator. Postoperative day 3. Status post laparotomy and oversewing of duodenal ulcer. patient is currently on TPN. patient is on sedation holiday and is easily arousable. Hemoglobin is fairly stable at 7.9 today. No further episodes of GI bleed.Chest x-ray showed bilateral pleural effusions worse on the right. Ultrasound of the kidneys showed no evidence ofhydronephrosis. Creatinine level isimproving to 2.8 today.Pulmonary and GI is following. 11 05 2019 patient is postoperative day 4, status post laparotomy and oversewing of the urinalysis. Hemoglobin did improve to 8.7 today.patient is being continued on IV Lasix due to pleural effusion. Currently on norepinephrinewhich is being weaned off slowly. Patient is stable at creatinine level II.8.no signs of active GI bleed. IVELISSE drain is in place. Patient is being prepared for weaning prior.patient has been afebrile.Chest x- ray showedoverall stable findingssmall to moderate size right greater than left pleural effus with mild central vascular congestion. 11/06/2019 Patient was successfully extubated yesterday. Currently postoperative day 5. Status post exploratorylaparotomy and oversewing of duodenal ulcer. Hemoglobin is stable and improving at 9.8 today. Creatinine level is 3.03. p eripheral edema is improv patient was diuresing well vascular congestion. Currently onoxygen nasal canula. patient wants to eat Swallow evaluation is pending.currently on TPN chest x-ray showed bilateral pleural effusions right greater than left Patient has been Afebrile 11/07/2019 Patient denied any complaints of abdominal pain. Hemoglobin is stable and improved to 9.7. Hemodynamically stable. Off pressor support. Status post explored laparotomy and oversewing of duodenal ulcer due to GI bleed. Patient was extubated. urrently patient is tolerating clear liquids. Does have generalized weakness Is improving. Currently on IV Lasix. Chest x-ray showed improvement in volume status without any significant abnormalities. Mild pulmonary vascular congestion without yaya pulmonary laura a. patient has been afebrile.patient is awake alert and oriented. sometimes paranoid.still on TPN for nutritional support. Currently maintaining sinus rhythm. 11/08/2019 Patient is awake alert but confused. Tolerating liquids. No complaints of nausea or vomiting. Patient is still on TPN. Hemoglobin is at 8.6 today. Patient is status post exploratory laparotomy and oversewing of duodenal ulce r.postoperative 7 The patient had several runs of SVT yesterday with a heart rate ranging between 140 and 160. He was given adenosine which converted him and subsequently went back. Following that, the patient was started on amiodarone drip which put him in sinus rhythm and the drip is still running at 0.5 mg per KG per minute. continued onIV Lasix.leg swelling is improving. Patient has been afebrile. Currently on antibiotics in the form of Zosyn and Diflucan. Chest x-ray showedimproved infiltrates. 11/09/2019 Patient is postoperative day 8 status post explorative laparotomy and or seeing of duodenal ulcer. Hemoglobin level improved to 9.6 now. Patient's mental status is much improved compared to yesterday. Less confused today. Tolerating oral diet and is being advanced. BUE and is 42 and creatinine 2.17. Currently on oxygen via nasal cannula 6 L. Chest x-ray showed atelectasis at bases. Patient was on IV Lasix due to pleural effusion. SVT was resolved. Patient was given Adenosine yesterday. patient is being transferred to medical floor today. The pressure is still elev ated. Continued on metoprolol and Norvasc. Added hydralazineas per his home dose. Currently on antibiotics in the form of Zosyn and Diflucan. Active Medications Albuterol/Ipratropium (Duoneb 0.5 Mg-3 Mg/3 Ml Soln) 3 ml INHALATION RT-QID [facility] Last Admin: 11/09/19 12:12 Dose: Not Given Documented by: Amlodipine Besylate (Norvasc) 10 mg PO DAILY [facility] Last Admin: 11/09/19 12:31 Dose: 10 mg Documented by: Artificial Tears (Artificial Tear Drops) 1 drops BOTH EYES QID PRN PRN Reason: Dry Eye(s) Last Admin: 11/05/19 04:14 Dose: 1 drops Documented by: Atorvastatin Calcium (Lipitor) 10 mg PO HS [facility] Last Admin: 11/08/19 20:55 Dose: 10 mg Documented by: Budesonide (Pulmicort) 1 mg INHALATION RT-BID [facility] Last Admin: 11/09/19 07:52 Dose: 1 mg Documented by: Formoterol Fumarate (Perforomist) 20 mcg INHALATION RT-BID [facility] Last Admin: 11/09/19 07:52 Dose: 20 mcg Documented by: Haloperidol Lactate (Haldol) 1 mg IVP Q8HR PRN PRN Reason: Agitation or Acute Psychosis Last Admin: 11/08/19 11:37 Dose: 1 mg Documented by: Hydralazine HCl (Apresoline) 100 mg PO TID [facility] Last Admin: 11/09/19 16:44 Dose: 100 mg Documented by: Hydromorphone HCl (Dilaudid) 1 mg IVP Q2HR PRN PRN Reason: Pain Last Admin: 11/06/19 05:37 Dose: 1 mg Documented by: Hydromorphone HCl (Dilaudid) 0.5 mg IVP Q2H PRN PRN Reason: Pain Last Admin: 11/06/19 00:18 Dose: 0.5 mg Documented by: Sodium Chloride (Saline 0.9%) 1,000 mls @ 20 mls/hr IV .Q24H [facility] Last Admin: 11/09/19 14:37 Dose: 20 mls/hr Documented by: Fluconazole/Sodium Chloride (100 mg/ IV Solution) 50 mls @ 50 mls/hr IVPB DAILY [facility] Last Admin: 11/09/19 07:41 Dose: 50 mls/hr Documented by: Piperacillin Sod/Tazobactam (Sod 3.375 gm/ Sodium Chloride) 100 mls @ 25 mls/hr IVPB Q8H [facility] Last Admin: 11/09/19 11:53 Dose: 25 mls/hr Documented by: Fat Emulsion Intravenous (Lipids 20%) 250 mls @ 20.833 mls/hr IV DAILY@1400 [facility] Last Admin: 11/09/19 14:37 Dose: 20.833 mls/hr Documented by: Parenteral Vitamin Supplement 10 ml/ Chromium/Copper/Manganese/Seleni/Zn 1 ml/Sodium Acetate 30 meq/Magnesium Sulfate 1 gm/Calcium Gluconate 1 gm/Potassium Chloride 20 meq/Amino Acids/Dextrose 1,048 mls @ 90 mls/hr IV .BY DURATION [facility] Stop: 11/09/19 19:00 Last Admin: 11/09/19 09:01 Dose: 90 mls/hr Documented by: Sodium Acetate 30 meq/Magnesium Sulfate 1 gm/Calcium Gluconate 1 gm/Potassium Chloride 20 meq/Amino Acids/Dextrose 1,037 mls @ 90 mls/hr IV .BY DURATION [facility] Stop: 11/09/19 19:00 Last Admin: 11/09/19 13:43 Dose: Not Given Documented by: Parenteral Vitamin Supplement 10 ml/ Chromium/Copper/Manganese/Seleni/Zn 1 ml/Sodium Phosphate 15 mmol/Magnesium Sulfate 1 gm/Calcium Gluconate 1 gm/Potassium Chloride 20 meq/Amino Acids/Dextrose 1,038 mls @ 90 mls/hr IV .BY DURATION [facility] Sodium Phosphate 15 mmol/Magnesium Sulfate 1 gm/Calcium Gluconate 1 gm/Potassium Chloride 20 meq/Amino Acids/Dextrose 1,027 mls @ 90 mls/hr IV .BY DURATION [facility] Insulin Aspart (Novolog) 0 unit SQ Q4H [facility]; Protocol Last Admin: 11/09/19 16:44 Dose: 5 unit Documented by: Levothyroxine Sodium (Synthroid) 125 mcg PO DAILY@0630 [facility] Last Admin: 11/09/19 06:58 Dose: 125 mcg Documented by: Lidocaine (Lidoderm) 1 patch TOPICAL DAILY [facility] Last Admin: 11/09/19 07:43 Dose: Not Given Documented by: Linagliptin (Tradjenta) 5 mg PO DAILY [facility] Last Admin: 11/09/19 07:44 Dose: 5 mg Documented by: Liothyronine Sodium (Cytomel) 5 mcg PO DAILY [facility] Last Admin: 11/09/19 07:45 Dose: 5 mcg Documented by: Metoprolol Tartrate (Lopressor) 50 mg PO BID [facility] Last Admin: 11/09/19 07:44 Dose: 50 mg Documented by: Miscellaneous Information (Potassium Per Protocol) 1 each MISCELLANE DAILY PRN; Protocol PRN Reason: Per Protocol Miscellaneous Information (Magnesium Per Protocol) 1 each MISCELLANE DAILY PRN; Protocol PRN Reason: Per Protocol Miscellaneous Information (Phosphorus Per Protocol) 1 each MISCELLANE DAILY PRN; Protocol PRN Reason: Per Protocol Naloxone HCl (Narcan) 0.2 mg IV Q2M PRN PRN Reason: Opioid Reversal Nicotine (Habitrol 14mg/24hr Patch) 1 patch TRANSDERM DAILY [facility] Last Admin: 11/09/19 07:44 Dose: 1 patch Documented by: Pantoprazole Sodium (Protonix) 40 mg IV BID [facility] Last Admin: 11/09/19 07:43 Dose: 40 mg Documented by: Pregabalin (Lyrica) 50 mg PO BID [facility] Last Admin: 11/09/19 07:44 Dose: 50 mg Documented by: Objective - Vital Signs Vital signs: Vital Signs Temp 97.8 F 11/09/19 13:03 Pulse 79 11/09/19 14:00 Resp 18 11/09/19 13:03 BP 188/64 11/09/19 14:00 Pulse Ox 96 11/09/19 13:03 Intake & Output 11/08/19 11/09/19 11/09/19 18:59 06:59 18:59 Intake Total 1869.0 2482.8 1020 Output Total 3590 1230 1645 Balance -1721.0 1252.8 -625 Weight 92.9 kg 92.9 kg Intake: IV 1619.0 1434.8 480 Fat Emulsion 20% 250 ml @ 104.0 124.8 20.833 mls/hr IV DAILY@ 1400 [facility] Rx#:[id number] Fluconazole in NaCl,Iso- 50 50 Osm 100 mg In Saline 1 50ml.bag @ 50 mls/hr IVPB DAILY [facility] Rx#:[id number] Mvi, Adult No.4 with Vit 630 K 10 ml Trace (Conc-1Ml/ Dose) 1 ml Sodium Acetate 30 meq Magnesium Sulfate gm 1 gm Calcium Gluconate 1 gm Potassium Acetate 20 meq In Amino Acid 5%-D15w 1,000 ml @ 90 mls/hr IV .BY DURATION [facility] Rx#:[id number] Mvi, Adult No.4 with Vit 450 990 270 K 10 ml Trace (Conc-1Ml/ Dose) 1 ml Sodium Acetate 30 meq Magnesium Sulfate gm 1 gm Calcium Gluconate 1 gm Potassium Chloride 20 meq In Amino Acid 5%-D15w 1,000 ml @ 90 mls/hr IV .BY DURATION [facility] Rx#:[id number] Piperacillin-Tazobactam 3 125 100 .375 gm In Sodium Chloride 0.9% 100 ml @ 25 mls/hr IVPB Q8H [facility] Rx#: [id number] Potassium Chloride 10 meq 100 In Water For Injection 1 100ml.bag @ 100 mls/hr IVPB Q1H [facility] Rx#: [id number] Sodium Chloride 0.9% 1, 260 220 60 000 ml @ 20 mls/hr IV . Q24H [facility] Rx#:[id number] Intake, IV Titration 250 1048 Amount Amiodarone 300 mg In 250 Dextrose 5% in Water 250 ml @ 0.5 MG/MIN 25 mls/hr IV .Q10H [facility] Rx#: [id number] Mvi, Adult No.4 with Vit 1048 K 10 ml Trace (Conc-1Ml/ Dose) 1 ml Sodium Acetate 30 meq Magnesium Sulfate gm 1 gm Calcium Gluconate 1 gm Potassium Chloride 20 meq In Amino Acid 5%-D15w 1,000 ml @ 90 mls/hr IV .BY DURATION [facility] Rx#:[id number] Oral 540 Output: Drainage 50 95 Right Lower Abdomen 50 95 Urine 3540 1230 1300 Post Void Residual 250 Other: Voiding Method Indwelling Catheter Indwelling Catheter # Voids 1 ABP, PAP, CO, CI - Last Documented Arterial Blood Pressure 168/55 - Exam PHYSICAL EXAMINATION: Patient is lying in the bed comfortably, no acute distress, awake alert and oriented. lethargic and very weak.. more awake and oriented today. HEENT: Normocephalic. Neck is supple. Pupils reactive. Nostrils clear. Oral cavity is moist. Ears reveal no drainage. Neck reveals no JVD, carotid bruits, or thyromegaly. CHEST EXAMINATION: Trachea is central. Symmetrical expansion. bibasilar d iminished air entry and crackles. No wheezing.. CARDIAC: Normal S1, S2 with no gallops. No murmurs ABDOMEN: Soft. Bowel sounds normal. No organomegaly. No abdominal bruits. Extremities:2+ edema. No clubbing or cyanosis Neurologically awake, alert, oriented x3 paranoid sometimes. Able to move extremities while in bed. No focal deficits noted Skin: No rash or skin lesions. Psychiatric: Coperative. could not be assessed completely. Musculoskeletal: No joint swelling or deformity. - Labs CBC & Chem 7: 11/09/19 04:45 11/09/19 04:45 Labs: Abnormal Lab Results - Last 24 Hours (Table) 11/08/19 11/08/19 11/08/19 Range/Units 04:31 20:41 23:56 RBC (4.30-5.90) m/uL Hgb (13.0-17.5) gm/dL Hct (39.0-53.0) % RDW (11.5-15.5) % Plt Count (150-450) k/uL Lymphocytes # (1.0-4.8) k/uL Carbon Dioxide (22-30) mmol/L BUN (9-20) mg/dL Creatinine (0.66-1.25) mg/dL Glucose (74-99) mg/dL POC Glucose (mg/dL) 283 H 279 H (75-99) mg/dL Calcium (8.4-10.2) mg/dL Phosphorus (2.5-4.5) mg/dL Procalcitonin 0.44 H (0.02-0.09) ng/mL 11/09/19 11/09/19 11/09/19 Range/Units 04:10 04:45 04:45 RBC 3.18 L (4.30-5.90) m/uL Hgb 9.6 L (13.0-17.5) gm/dL Hct 28.7 L (39.0-53.0) % RDW 15.8 H (11.5-15.5) % Plt Count 146 L (150-450) k/uL Lymphocytes # 0.7 L (1.0-4.8) k/uL Carbon Dioxide 33 H (22-30) mmol/L BUN 42 H (9-20) mg/dL Creatinine 2.17 H (0.66-1.25) mg/dL Glucose 274 H (74-99) mg/dL POC Glucose (mg/dL) 292 H (75-99) mg/dL Calcium 7.9 L (8.4-10.2) mg/dL Phosphorus 2.3 L (2.5-4.5) mg/dL Procalcitonin (0.02-0.09) ng/mL 11/09/19 11/09/19 11/09/19 Range/Units 07:48 11:07 15:56 RBC (4.30-5.90) m/uL Hgb (13.0-17.5) gm/dL Hct (39.0-53.0) % RDW (11.5-15.5) % Plt Count (150-450) k/uL Lymphocytes # (1.0-4.8) k/uL Carbon Dioxide (22-30) mmol/L BUN (9-20) mg/dL Creatinine (0.66-1.25) mg/dL Glucose (74-99) mg/dL POC Glucose (mg/dL) 283 H 241 H 287 H (75-99) mg/dL Calcium (8.4-10.2) mg/dL Phosphorus (2.5-4.5) mg/dL Procalcitonin (0.02-0.09) ng/mL Microbiology - Last 24 Hours (Table) 11/05/19 05:00 Blood Culture - Preliminary Blood No Growth after 96 hours 11/07/19 18:22 Blood Culture - Preliminary Blood No Growth after 24 hours 11/07/19 17:59 Blood Culture - Preliminary Blood No Growth after 24 hours Assessment and Plan Assessment: Acute blood loss anemia secondary to duodenal ulcer. Status post exploratory laparotomy and oversewing of duodenal ulcer on 11 01 2019 - Patient is status post EGD/colonoscopy which revealed duodenal ulcer without any active bleeding with the large interior clot in the second portion of duodenum; colonoscopy revealed ischemic colitis and left colon. Patient is presently on Protonix IV twice a day -Acute hypoxic respiratory failure with bilateral pleural effusion and atelectasis. Currently on mechanical ventilator.extubated on 11 05 2019 -coronary artery disease continue with metoprolol hold off aspirin because of GI bleed -Hypertension patient is presently hypotensive secondary to GI bleed holding off on lisinopril, hydralazine. -acute kidney injury. Possible ATN. Creatinine today is 3.03 -acute blood loss anemia due to GI bleed. 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 -PTSD and paranoid ideation. -Continued nicotine use: -DVT prophylaxis with SCDs due to GI leed plan: patient is currently extubated and weaned off frompressor support.continued on IV diuresis due to pleural effusion. Monitor renal function.improving currently. continue with antibioticsin the form ofZosyn and Diflucan.. Continue with Protonix. started on oral diet. passed Swallow evaluation. advance diet as tolerated. Was on TPN. pulmonary and General surgery is following.prognosis is guarded at this time.discussed with his at bedside. Time with Patient: Greater than 30
[2019-11-09 20:33] LABS: Glucose,Whole Blood 373 mg/dL (75-99)
[2019-11-09] MEDS: ATORVASTATIN 10 MG TAB PO SCH (20:45)
[2019-11-09] MEDS: 1: MVI, ADULT NO.4 WITH VIT K 10 ML, TRACE (CONC-1ML/DOSE) 1 ML, SODIUM PHOSPHATE 15 MMO IV SCH ×7 (21:34)
[2019-11-09 23:43] LABS: Echovirus AB Type 6 <1:10 (<1:10); Echovirus AB Type 7 1:20 (<1:10); Echovirus AB Type 9 <1:10 (<1:10)
[2019-11-10 00:07] LABS: Glucose,Whole Blood 310 mg/dL (75-99)
[2019-11-10] MEDS: INSULIN ASPART (NovoLOG) 100 UNIT/ML VIAL SQ SCH ×7 (00:19→20:28)
[2019-11-10 04:26] LABS: Glucose,Whole Blood 207 mg/dL (75-99)
[2019-11-10] MEDS: PIPERACILLIN-TAZOBACTAM 3.375 GM in SODIUM CHLORIDE 0.9% 100 ML IVPB SCH ×3 (04:39→20:18)
[2019-11-10] MEDS: LEVOTHYROXINE 125 MCG TAB PO SCH (06:03)
[2019-11-10] MEDS: FORMOTEROL FUMARATE 20 MCG/2 ML NEBU INHALATION SCH ×2 (07:13→19:29)
[2019-11-10] MEDS: IPRATROPIUM-ALBUTEROL 3 ML NEB INHALATION SCH ×4 (07:13→19:29)
[2019-11-10] MEDS: BUDESONIDE 1 MG/2 ML NEBU INHALATION SCH ×2 (07:13→19:29)
[2019-11-10 07:26] LABS: Glucose,Whole Blood 197 mg/dL (75-99)
[2019-11-10] MEDS: hydrALAZINE HCL 50 MG TAB PO SCH ×3 (08:08→20:18)
[2019-11-10] MEDS: PANTOPRAZOLE 40 MG/10 ML VIAL IV SCH ×2 (08:08→20:18)
[2019-11-10] MEDS: PREGABALIN 50 MG CAP PO SCH ×2 (08:09→20:18)
[2019-11-10] MEDS: NICOTINE 14MG/24HR PATCH TRANSDERM SCH (08:09)
[2019-11-10] MEDS: amLODIPine 10 MG TAB PO SCH (08:09)
[2019-11-10] MEDS: LINAGLIPTIN 5 MG TABLET PO SCH (08:09)
[2019-11-10] MEDS: METOPROLOL TARTRATE 50 MG TAB PO SCH ×2 (08:09→20:18)
[2019-11-10] MEDS: LIOTHYRONINE SODIUM 5 MCG TAB PO SCH (08:09)
[2019-11-10] MEDS: FLUCONAZOLE IN NACL,ISO-OSM 100 MG in SALINE 1 50ML.BAG IVPB SCH (08:10)
[2019-11-10] MEDS: LIDOCAINE 5% PATCH TOPICAL SCH (08:10)
[2019-11-10] MEDS: 1: MVI, ADULT NO.4 WITH VIT K 10 ML, TRACE (CONC-1ML/DOSE) 1 ML, SODIUM PHOSPHATE 15 MMO IV SCH ×14 (08:10→19:10)
[2019-11-10 08:39] LABS: Basophils % (A) 1 %; Eosinophils # (A) 0.3 k/uL (0-0.7); Eosinophils % (A) 5 %; HCT 26.5 % (39.0-53.0); HGB 8.6 gm/dL (13.0-17.5); Lymphocytes # (A) 1.1 k/uL (1.0-4.8); Lymphocytes % (A) 17 %; MCH 29.3 pg (25.0-35.0); MCHC 32.4 g/dL (31.0-37.0); MCV 90.5 fL (80.0-100.0); Mean Platelet Volume 8.3; Monocytes # (A) 0.4 k/uL (0-1.0); Monocytes % (A) 6 %; Neutrophils # (A) 4.5 k/uL (1.3-7.7); Neutrophils % (A) 68 %; Platelet Count 165 k/uL (150-450); RBC 2.92 m/uL (4.30-5.90); RDW 15.5 % (11.5-15.5); WBC 6.6 k/uL (3.8-10.6)
[2019-11-10 08:40] LABS: Albumin 2.4 g/dL (3.5-5.0); Calcium 8.3 mg/dL (8.4-10.2); Magnesium 2.3 mg/dL (1.6-2.3); Phosphorus 2.9 mg/dL (2.5-4.5); Potassium 3.5 mmol/L (3.5-5.1)
--- NOTE | 2019-11-10 10:51 | P.CRDCN ---
History of Present Illness Consult date: 11/10/19 Requesting physician: Marcio E Sheet Reason for Consult (text): AF RVR, SVT Chief complaint: GI bleed History of present illness: This is a pleasant 79-year-old gentleman who was initially admitted on 10/28/2018 for GI bleed. He's had a long and complicated hospital course with recurrent bleeding transfusion of multiple units of packed red blood cells and multiple procedures for duodenal ulcers including most recently on November 01 a duodenotomy and oversewing of bleeding duodenal ulcer by Dr. Gifford. He is currently on TPN and lipids. While in the intensive care unit the patient did h ave episodes of "SVT" and was treated with boluses of IV amiodarone. We were asked to see the patient in consultation today for episodes of tachycardia with heart rate in the 170s. Upon review of EKG from this morning, appears to be atrial fibrillation with rapid ventricular response however patient has had episodes of SVT on previous EKGs. As well as EKGs that showed likely atrial fibrillation with controlled ventricular response and EKGs with sinus rhythm with frequent PACs. Currently patient is maintaining sinus rhythm. He has on metoprolol 50 mg by mouth twice a day. Patient did have a 2-D echo with Doppler done this admission which showed a normal LV systolic function with an ejection fraction between 60-65% and mild tricuspid regurgitation. He is currently on levothyroxine 125 g by mouth daily, no recent TSH available. Vital signs show blood pressure to be somewhat elevated at times as high as the 180s systolic with a heart rate in the 60s, 70s and 80s. Patient does verbalize a history of cardiac workup 7-8 years ago at the ID and a right and was told he had a minor b lockage in one of the arteries on the left side of his heart and was treated medically at that time. He does not follow regularly with a fisher pot. He has had episodes of rapid heartbeat at home that are brief in duration and occur rarely. During the time of A. fib with RVR the patient was symptomatic with some shortness of breath, lightheadedness and could feel his heart racing. Past Medical History Past Medical History: Diabetes Mellitus, Hyperlipidemia, Hypertension, Osteoarthritis (OA), Sleep Apnea/CPAP/BIPAP, Thyroid Disorder History of Any Multi-Drug Resistant Organisms: None Reported Past Surgical History: No Surgical Hx Reported Past Anesthesia/Blood Transfusion Reactions: No Reported Reaction Smoking Status: Current every day smoker Past Alcohol Use History: None Reported Past Drug Use History: None Reported Medications and Allergies Home Medications Medication Instructions Recorded Confirmed Type Alogliptin Benzoate [Alogliptin] 12.5 mg PO DAILY 10/28/19 10/28/19 History Ascorbic Acid/Ascorbate Sodium 500 mg PO DAILY 10/28/19 10/28/19 History [Vitamin C 250 mg Tablet Chew] Aspirin EC [Ecotrin Low Dose] 81 mg PO DAILY 10/28/19 10/28/19 History Cholecalciferol [Vitamin D3 (25 3,000 unit PO DAILY 10/28/19 10/28/19 History Mcg = 1000 Iu)] Cyclobenzaprine [Flexeril] 5 mg PO BID PRN 10/28/19 10/28/19 History Ferrous Sulfate [Feosol] 325 mg PO TID 10/28/19 10/28/19 History Levothyroxine Sodium [Synthroid] 125 mcg PO DAILY 10/28/19 10/28/19 History Lidocaine 5% Patch [Lidoderm] 1 patch TOPICAL DAILY 10/28/19 10/28/19 History Liothyronine Sodium [Cytomel] 5 mcg PO DAILY 10/28/19 10/28/19 History Lisinopril 40 mg PO DAILY 10/28/19 10/28/19 History Metoprolol Tartrate [Lopressor] 50 mg PO BID 10/28/19 10/28/19 History Multivitamins, Thera [Multivitamin 1 tab PO BID 10/28/19 10/28/19 History (formulary)] Pregabalin 50 mg PO BID 10/28/19 10/28/19 History Simvastatin [Zocor] 20 mg PO HS 10/28/19 10/28/19 History amLODIPine [Norvasc] 10 mg PO DAILY 10/28/19 10/28/19 History glipiZIDE [Glucotrol] 10 mg PO AC-TID 10/28/19 10/28/19 History hydrALAZINE HCL [Apresoline] 100 mg PO TID 10/28/19 10/28/19 History Allergies Allergy/AdvReac Type Severity Reaction Status Date / Time No Known Allergies Allergy Verified 10/28/19 07:19 Physical Exam Vitals: Vital Signs Temp Pulse Pulse Resp BP Pulse Ox 11/10/19 07:35 84 11/10/19 07:25 88 11/10/19 07:24 88 11/10/19 07:14 87 97 11/10/19 05:00 98.4 F 79 20 143/80 91 L 11/09/19 21:00 98.9 F 72 20 147/67 95 11/09/19 20:02 85 11/09/19 19:56 82 11/09/19 19:55 84 11/09/19 19:41 80 11/09/19 15:25 76 11/09/19 15:12 76 11/09/19 14:00 79 188/64 11/09/19 13:03 97.8 F 75 18 189/74 96 Intake and Output 11/09/19 11/10/19 11/10/19 22:59 06:59 14:59 Intake Total 275 425 Output Total 1640 1100 Balance -1365 -975 Intake: Oral 275 425 Output: Drainage 40 100 Right Lower Abdomen 40 100 Urine 1600 1000 Other: Voiding Method Indwelling Catheter PHYSICAL EXAMINATION: HEENT: Head is atraumatic, normocephalic. Pupils equal, round. Neck is supple. There is no elevated jugular venous pressure. HEART EXAMINATION: Heart sounds regular, S1 and S2 with a systolic murmur. CHEST EXAMINATION: Lungs are clear to auscultation. No chest wall tenderness is noted on palpation or with deep breathing. ABDOMEN: Soft, mild tenderness. Bowel sounds hypoactive. Abdominal incision noted. EXTREMITIES: 2+ peripheral pulses with evidence of mild right lower extremity edema and no calf tenderness noted. NEUROLOGIC patient is awake, alert and oriented x3. . Results 11/10/19 08:04 11/10/19 08:04 Lipids 11/10/19 Range/Units 08:04 Triglycerides 158 H (<150) mg/dL CBC 11/10/19 Range/Units 08:04 WBC 6.6 (3.8-10.6) k/uL RBC 2.92 L (4.30-5.90) m/uL Hgb 8.6 L (13.0-17.5) gm/dL Hct 26.5 L (39.0-53.0) % Plt Count 165 (150-450) k/uL Comprehensive Metabolic Panel 11/10/19 Range/Units 08:04 Sodium 139 (137-145) mmol/L Potassium 3.5 (3.5-5.1) mmol/L Chloride 104 (98-107) mmol/L Carbon Dioxide 30 (22-30) mmol/L BUN 42 H (9-20) mg/dL Creatinine 2.20 H (0.66-1.25) mg/dL Glucose 188 H (74-99) mg/dL Calcium 8.3 L (8.4-10.2) mg/dL Albumin 2.4 L (3.5-5.0) g/dL Current Medications Generic Name Dose Route Start Last Admin Trade Name Freq PRN Reason Stop Dose Admin Albuterol/Ipratropium 3 ml 11/01/19 12:00 11/10/19 07:13 Duoneb 0.5 Mg-3 Mg/3 Ml Soln INHALATION 3 ml RT-QID TAY Administration Amiodarone HCl 200 mg 11/10/19 10:45 Cordarone PO BID TAY Amlodipine Besylate 10 mg 11/09/19 12:30 11/10/19 08:09 Norvasc PO 10 mg DAILY TAY Administration Artificial Tears 1 drops 11/04/19 19:35 11/05/19 04:14 Artificial Tear Drops BOTH EYES 1 drops QID PRN Administration Dry Eye(s) Atorvastatin Calcium 10 mg 10/28/19 21:00 11/09/19 20:45 Lipitor PO 10 mg HS TAY Administration Budesonide 1 mg 11/01/19 20:00 11/10/19 07:13 Pulmicort INHALATION 1 mg RT-BID TAY Administration Formoterol Fumarate 20 mcg 11/01/19 20:00 11/10/19 07:13 Perforomist INHALATION 20 mcg RT-BID TAY Administration Haloperidol Lactate 1 mg 11/08/19 11:30 11/08/19 11:37 Haldol IVP 1 mg Q8HR PRN Administration Agitation or Acute Psychosis Hydralazine HCl 100 mg 11/09/19 16:00 11/10/19 08:08 Apresoline PO 100 mg TID TAY Administration Hydromorphone HCl 1 mg 11/01/19 21:03 11/06/19 05:37 Dilaudid IVP 1 mg Q2HR PRN Administration Pain Hydromorphone HCl 0.5 mg 11/01/19 21:26 11/06/19 00:18 Dilaudid IVP 0.5 mg Q2H PRN Administration Pain Sodium Chloride 1,000 mls @ 20 mls/hr 10/31/19 06:30 11/09/19 14:37 Saline 0.9% IV 20 mls/hr .Q24H TAY Administration Fluconazole/Sodium Chloride 50 mls @ 50 mls/hr 11/01/19 20:00 11/10/19 08:10 100 mg/ IV Solution IVPB 50 mls/hr DAILY TAY Administration Piperacillin Sod/Tazobactam 100 mls @ 25 mls/hr 11/01/19 20:00 11/10/19 04:39 Sod 3.375 gm/ Sodium Chloride IVPB 25 mls/hr Q8H TAY Administration Fat Emulsion Intravenous 250 mls @ 20.833 mls/hr 11/08/19 14:00 11/09/19 14:37 Lipids 20% IV 20.833 mls/hr DAILY@1400 TAY Administration Parenteral Vitamin Supplement 1,038 mls @ 90 mls/hr 11/09/19 21:00 11/10/19 08:10 10 ml/ Chromium/Copper/ IV 90 mls/hr Manganese/Seleni/Zn 1 ml/ .BY DURATION TAY Administration Sodium Phosphate 15 mmol/ Magnesium Sulfate 1 gm/ Calcium Gluconate 1 gm/ Potassium Chloride 20 meq/ Amino Acids/Dextrose Sodium Phosphate 15 mmol/ 1,027 mls @ 90 mls/hr 11/09/19 21:00 11/09/19 21:34 Magnesium Sulfate 1 gm/ IV 90 mls/hr Calcium Gluconate 1 gm/ .BY DURATION TAY Administration Potassium Chloride 20 meq/ Amino Acids/Dextrose Insulin Aspart 0 unit 11/05/19 16:30 11/10/19 08:09 Novolog SQ 2 unit Q4H TAY Administration Protocol Levothyroxine Sodium 125 mcg 10/29/19 06:30 11/10/19 06:03 Synthroid PO 125 mcg DAILY@0630 TAY Administration Lidocaine 1 patch 10/29/19 09:00 11/10/19 08:10 Lidoderm TOPICAL 1 patch DAILY TAY Administration Linagliptin 5 mg 10/29/19 09:00 11/10/19 08:09 Tradjenta PO 5 mg DAILY TAY Administration Liothyronine Sodium 5 mcg 10/29/19 09:00 11/10/19 08:09 Cytomel PO 5 mcg DAILY TAY Administration Metoprolol Tartrate 50 mg 10/28/19 21:00 11/10/19 08:09 Lopressor PO 50 mg BID TAY Administration Miscellaneous Information 1 each 11/07/19 17:06 Potassium Per Protocol MISCELLANE DAILY PRN Per Protocol Protocol Miscellaneous Information 1 each 11/07/19 17:06 Magnesium Per Protocol MISCELLANE DAILY PRN Per Protocol Protocol Miscellaneous Information 1 each 11/09/19 09:10 Phosphorus Per Protocol MISCELLANE DAILY PRN Per Protocol Protocol Naloxone HCl 0.2 mg 10/28/19 07:19 Narcan IV Q2M PRN Opioid Reversal Nicotine 1 patch 11/01/19 09:00 11/10/19 08:09 Habitrol 14mg/24hr Patch TRANSDERM 1 patch DAILY TAY Administration Pantoprazole Sodium 40 mg 10/28/19 21:00 11/10/19 08:08 Protonix IV 40 mg BID TAY Administration Pregabalin 50 mg 10/28/19 21:00 11/10/19 08:09 Lyrica PO 50 mg BID TAY Administration Intake and Output 11/09/19 11/10/19 11/10/19 22:59 06:59 14:59 Intake Total 275 425 Output Total 1640 1100 Balance -1365 -675 Intake: Oral 275 425 Output: Drainage 40 100 Right Lower Abdomen 40 100 Urine 1600 1000 Other: Voiding Method Indwelling Catheter 11/10/19 08:04 11/10/19 08:04 EKG Interpretations (text) Most recent shows atrial fibrillation with rapid ventricular response Assessment and Plan Assessment: #1 paroxysmal atrial fibrillation at times with rapid ventricular response 2 GI bleed secondary to duodenal ulcer, status post exploratory laparotomy and oversewing of duodenal ulcer #3 acute blood loss anemia secondary GI bleeding #4 chronic kidney disease #5 hypothyroidism #6 hyperlipidemia #7 hypertension #8 type 2 diabetes mellitus Plan: From cardiology perspective, we'll attempt to keep the patient in sinus rhythm. We will add amiodarone 200 mg by mouth twice a day. We will check a TSH. Santi ally the patient will be anticoagulated at some point. We will initiate anticoagulation once okayed by surgery. We'll continue to follow the patient and provide further recommendations accordingly. SYSTEM MANAGER note has been reviewed, I agree with a documented findings and plan of care. Patient was seen and examined.
[2019-11-10] MEDS: AMIODARONE 200 MG TAB PO SCH ×2 (11:10→20:18)
[2019-11-10] MEDS ORDERED: POTASSIUM CHLORIDE 20 MEQ in WATER FOR INJECTION 1 100ML.BAG IVPB SCH (12:00)
[2019-11-10 12:29] LABS: T4, Free (Free Thyroxine) 0.93 ng/dL (0.78-2.19)
[2019-11-10 12:33] LABS: Glucose,Whole Blood 297 mg/dL (75-99)
--- NOTE | 2019-11-10 12:33 | P.PN ---
Subjective Progress Note Date: 11/10/19 CHIEF COMPLAINT: Bleeding duodenal ulcer HISTORY OF PRESENT ILLNESS: 78-year-old male who is status post exploratory laparotomy with duodenotomy and oversewing of bleeding duodenal ulcer. Patient examined this morning at the bedside with Dr. Jessica. Patient denies abdominal pain. Denies nausea or vomiting. No bloody stools. Hemoglobin 8.6 today. PHYSICAL EXAM: VITAL SIGNS: Reviewed. GENERAL: Well-developed in no acute distress HEENT: No sclera icterus. Extraocular movements grossly intact. Moist buccal mucosa. Head is atraumatic, normocephalic. ABDOMEN: Soft. Nondistended. Surgical dressing clean dry intact. IVELISSE drain with serosanguineous drainage NEUROLOGIC: Awake and alert. ASSESSMENT: 1. Bleeding duodenal ulcer, status post exploratory laparotomy with duodenotomy and oversewing of bleeding duodenal ulcer 2. Acute blood loss anemia PLAN: -Continue to monitor hemoglobin -Continue abdominal dressing changes with telfa michael. Change daily. -Monitor drainage from IVELISSE drain -Continue diet as tolerated. Likely advance diet tomorrow if patient continues to tolerate full liquid. Wean off TPN. Nurse practitioner note has been reviewed by physician. Signing provider agrees with the documented findings, assessment, and plan of care. Objective - Vital Signs Vital signs: Vital Signs Temp 98.4 F 11/10/19 05:00 Pulse 84 11/10/19 11:39 Resp 20 11/10/19 05:00 BP 112/64 11/10/19 08:09 Pulse Ox 90 L 11/10/19 08:09 Intake & Output 11/09/19 11/10/19 11/10/19 18:59 06:59 18:59 Intake Total 1020 700 Output Total 1645 2100 70 Balance -625 -1400 -70 Weight 92.9 kg Intake: IV 480 Fluconazole in NaCl,Iso- 50 Osm 100 mg In Saline 1 50ml.bag @ 50 mls/hr IVPB DAILY TAY Rx#:[id number] Mvi, Adult No.4 with Vit 270 K 10 ml Trace (Conc-1Ml/ Dose) 1 ml Sodium Acetate 30 meq Magnesium Sulfate gm 1 gm Calcium Gluconate 1 gm Potassium Chloride 20 meq In Amino Acid 5%-D15w 1,000 ml @ 90 mls/hr IV .BY DURATION TAY Rx#:[id number] Potassium Chloride 10 meq 100 In Water For Injection 1 100ml.bag @ 100 mls/hr IVPB Q1H TAY Rx#: [id number] Sodium Chloride 0.9% 1, 60 000 ml @ 20 mls/hr IV . Q24H TAY Rx#:[id number] Oral 540 700 Output: Drainage 95 100 70 Right Lower Abdomen 95 100 70 Urine 1300 2000 Post Void Residual 250 Other: Voiding Method Indwelling Catheter Indwelling Catheter # Voids 1 ABP, PAP, CO, CI - Last Documented Arterial Blood Pressure 168/55 - Labs CBC & Chem 7: 11/10/19 08:04 11/10/19 08:04 Labs: Abnormal Lab Results - Last 24 Hours (Table) 11/02/19 11/09/19 11/09/19 Range/Units 01:15 15:56 20:26 RBC (4.30-5.90) m/uL Hgb (13.0-17.5) gm/dL Hct (39.0-53.0) % BUN (9-20) mg/dL Creatinine (0.66-1.25) mg/dL Glucose (74-99) mg/dL POC Glucose (mg/dL) 287 H 373 H (75-99) mg/dL Calcium (8.4-10.2) mg/dL Albumin (3.5-5.0) g/dL Triglycerides (<150) mg/dL TSH (0.465-4.680) mIU/L Echovirus Type 11 Ab 1:80 H (<1:10) 11/10/19 11/10/19 11/10/19 Range/Units 00:03 04:23 07:24 RBC (4.30-5.90) m/uL Hgb (13.0-17.5) gm/dL Hct (39.0-53.0) % BUN (9-20) mg/dL Creatinine (0.66-1.25) mg/dL Glucose (74-99) mg/dL POC Glucose (mg/dL) 310 H 207 H 197 H (75-99) mg/dL Calcium (8.4-10.2) mg/dL Albumin (3.5-5.0) g/dL Triglycerides (<150) mg/dL TSH (0.465-4.680) mIU/L Echovirus Type 11 Ab (<1:10) 11/10/19 11/10/19 11/10/19 Range/Units 08:04 08:04 08:04 RBC 2.92 L (4.30-5.90) m/uL Hgb 8.6 L (13.0-17.5) gm/dL Hct 26.5 L (39.0-53.0) % BUN 42 H (9-20) mg/dL Creatinine 2.20 H (0.66-1.25) mg/dL Glucose 188 H (74-99) mg/dL POC Glucose (mg/dL) (75-99) mg/dL Calcium 8.3 L (8.4-10.2) mg/dL Albumin 2.4 L (3.5-5.0) g/dL Triglycerides 158 H (<150) mg/dL TSH <0.015 L (0.465-4.680) mIU/L Echovirus Type 11 Ab (<1:10) Microbiology - Last 24 Hours (Table) 11/05/19 05:00 Blood Culture - Preliminary Blood No Growth after 120 hours 11/07/19 18:22 Blood Culture - Preliminary Blood No Growth after 48 hours 11/07/19 17:59 Blood Culture - Preliminary Blood No Growth after 48 hours
--- NOTE | 2019-11-10 12:58 | P.PN ---
Subjective Progress Note Date: 11/10/19 Principal diagnosis: Acute upper GI bleeding, blood loss anemia The patient is seen today 11/10/2019 in follow-up on the regular medical floor. He is awake and alert in no acute distress. He denies any worsening shortness of breath, cough or congestion. He is maintaining O2 saturations 90% on 4 L/m per nasal cannula. He did have an episode of atrial fibrillation with a rapid ventricular response this morning. Currently stable with a rate in the 70s. Cardiology is on the case. No current signs of active bleeding. Hemoglobin 8.6. He is status post 9 units of packed red blood cells and 1 unit of fresh frozen plasma this admission. Blood cultures reveal no growth. White count 6.6. Creatinine 2.20. Objective - Vital Signs Vital signs: Vital Signs Temp 98.4 F 11/10/19 05:00 Pulse 84 11/10/19 11:39 Resp 20 11/10/19 05:00 BP 112/64 11/10/19 08:09 Pulse Ox 90 L 11/10/19 08:09 Intake & Output 11/09/19 11/10/19 11/10/19 18:59 06:59 18:59 Intake Total 1020 700 Output Total 1645 2100 70 Balance -625 -1400 -70 Weight 92.9 kg Intake: IV 480 Fluconazole in NaCl,Iso- 50 Osm 100 mg In Saline 1 50ml.bag @ 50 mls/hr IVPB DAILY TAY Rx#:[id number] Mvi, Adult No.4 with Vit 270 K 10 ml Trace (Conc-1Ml/ Dose) 1 ml Sodium Acetate 30 meq Magnesium Sulfate gm 1 gm Calcium Gluconate 1 gm Potassium Chloride 20 meq In Amino Acid 5%-D15w 1,000 ml @ 90 mls/hr IV .BY DURATION TAY Rx#:[id number] Potassium Chloride 10 meq 100 In Water For Injection 1 100ml.bag @ 100 mls/hr IVPB Q1H TAY Rx#: [id number] Sodium Chloride 0.9% 1, 60 000 ml @ 20 mls/hr IV . Q24H TAY Rx#:[id number] Oral 540 700 Output: Drainage 95 100 70 Right Lower Abdomen 95 100 70 Urine 1300 2000 Post Void Residual 250 Other: Voiding Method Indwelling Catheter Indwelling Catheter # Voids 1 ABP, PAP, CO, CI - Last Documented Arterial Blood Pressure 168/55 - Exam GENERAL EXAM: Alert, pleasant, 78-year-old male patient, on 4 L per high flow oxygen, comfortable in no apparent distress. HEAD: Normocephalic/atraumatic. EYES: Normal reaction of pupils, equal size. Conjunctiva pink, sclera white. NOSE: Clear with pink turbinates. THROAT: No erythema or exudates. NECK: No masses, no JVD, no thyroid enlargement, no adenopathy. CHEST: No chest wall deformity. Symmetrical expansion. LUNGS: Equal air entry with faint end expiratory wheeze, few scattered rhonchi. Diminished breath sounds at the bases CVS: Regular rate and rhythm, normal S1 and S2, no gallops, no murmurs, no rubs ABDOMEN: Soft, nontender. No hepatosplenomegaly, normal bowel sounds, no gu arding or rigidity. EXTREMITIES: No clubbing, no edema, no cyanosis, 2+ pulses and upper and lower e xtremities. MUSCULOSKELETAL: Muscle strength and tone normal. SPINE: No scoliosis or deformity SKIN: No rashes CENTRAL NERVOUS SYSTEM: No focal deficits, tone is normal in all 4 extremities. PSYCHIATRIC: Alert and oriented -3. Appropriate affect. Intact judgment and insight. - Labs CBC & Chem 7: 11/10/19 08:04 11/10/19 08:04 Labs: Abnormal Lab Results - Last 24 Hours (Table) 11/02/19 11/09/19 11/09/19 Range/Units 01:15 15:56 20:26 RBC (4.30-5.90) m/uL Hgb (13.0-17.5) gm/dL Hct (39.0-53.0) % BUN (9-20) mg/dL Creatinine (0.66-1.25) mg/dL Glucose (74-99) mg/dL POC Glucose (mg/dL) 287 H 373 H (75-99) mg/dL Calcium (8.4-10.2) mg/dL Albumin (3.5-5.0) g/dL Triglycerides (<150) mg/dL TSH (0.465-4.680) mIU/L Echovirus Type 11 Ab 1:80 H (<1:10) 11/10/19 11/10/19 11/10/19 Range/Units 00:03 04:23 07:24 RBC (4.30-5.90) m/uL Hgb (13.0-17.5) gm/dL Hct (39.0-53.0) % BUN (9-20) mg/dL Creatinine (0.66-1.25) mg/dL Glucose (74-99) mg/dL POC Glucose (mg/dL) 310 H 207 H 197 H (75-99) mg/dL Calcium (8.4-10.2) mg/dL Albumin (3.5-5.0) g/dL Triglycerides (<150) mg/dL TSH (0.465-4.680) mIU/L Echovirus Type 11 Ab (<1:10) 11/10/19 11/10/19 11/10/19 Range/Units 08:04 08:04 08:04 RBC 2.92 L (4.30-5.90) m/uL Hgb 8.6 L (13.0-17.5) gm/dL Hct 26.5 L (39.0-53.0) % BUN 42 H (9-20) mg/dL Creatinine 2.20 H (0.66-1.25) mg/dL Glucose 188 H (74-99) mg/dL POC Glucose (mg/dL) (75-99) mg/dL Calcium 8.3 L (8.4-10.2) mg/dL Albumin 2.4 L (3.5-5.0) g/dL Triglycerides 158 H (<150) mg/dL TSH <0.015 L (0.465-4.680) mIU/L Echovirus Type 11 Ab (<1:10) 11/10/19 Range/Units 12:31 RBC (4.30-5.90) m/uL Hgb (13.0-17.5) gm/dL Hct (39.0-53.0) % BUN (9-20) mg/dL Creatinine (0.66-1.25) mg/dL Glucose (74-99) mg/dL POC Glucose (mg/dL) 297 H (75-99) mg/dL Calcium (8.4-10.2) mg/dL Albumin (3.5-5.0) g/dL Triglycerides (<150) mg/dL TSH (0.465-4.680) mIU/L Echovirus Type 11 Ab (<1:10) Microbiology - Last 24 Hours (Table) 11/05/19 05:00 Blood Culture - Preliminary Blood No Growth after 120 hours 11/07/19 18:22 Blood Culture - Preliminary Blood No Growth after 48 hours 11/07/19 17:59 Blood Culture - Preliminary Blood No Growth after 48 hours Assessment and Plan Assessment: #1. Acute blood loss anemia related to upper GI bleeding. The patient has received a total of 9 units of packed red blood cells and 1 unit of fresh frozen plasma this admission. Status post exploratory laparotomy and oversewing of du odenal ulcer. Postoperative day #9. #2. Duodenal ulcer #3. Possible ischemic colitis #4. Acute hypoxic respiratory failure related to bibasilar atelectasis and pleural effusions and fluid overload, currently on 8 L high flow nasal cannula #5. Lactic acidemia secondary to GI bleed and anemia #6. History of obstructive sleep apnea on CPAP #7. History of hyperlipidemia #8. Hypothyroidism #9. Hypertension #10. Diabetes mellitus #11. Degenerative joint disease #12. Chronic tobacco dependence. #13. Post traumatic stress disorder. Plan: The patient was seen and evaluated by Dr. Gonzales. He is currently stable from the pulmonary standpoint. Continue the current treatment plan. He did have another episode of A. fib with RVR. Cardiology is on the case. We'll continue to follow. I, the cosigning physician, performed a history & physical examination of the patient. Lungs sounds are clear, diminished. Maintaining good O2 saturations in the 90s on 8 L high flow nasal cannula. I discussed the assessment and plan of care with my nurse practitioner, Roxie Ward. I attest to the above note as dictated by her.
[2019-11-10] MEDS: SODIUM CHLORIDE 0.9% 1,000 ML IV SCH (15:42)
[2019-11-10 17:09] LABS: Glucose,Whole Blood 273 mg/dL (75-99)
--- NOTE | 2019-11-10 17:43 | P.PN ---
Subjective Progress Note Date: 11/10/19 Principal diagnosis: GI bleed; status post EGD/colonoscopy Duodenal ulcer/ischemic colitis 10/30/2017 patient seen in follow-up in the intensive care unit; patient's family is at bedside and had multiple questions which were all addressed to her sa pjfaction; patient is status post EGD/colonoscopy which revealed a duodenal ulcer, that was not actively bleeding with a large anterior and clot in the second portion of the duodenum. Colonoscopy revealed ischemic colitis in the left colon with biopsies taken. However the procedure had to be aborted related to poor prep. Lab review shows hemoglobin is 6.8, patient has had 2 units of blood already, and he is receiving an additional unit of blood this morning. Hemodynamically patient is stable, receiving IV fluids, with 0.9 normal saline at a rate of 100 ML per hour. He remains on high flow oxygen, at 10 L and his pulse ox is 92- 93%. Complaints of chest pain, patient does have exertional dyspnea, today's chest x-ray has been reviewed, showing bibasilar atelectasis and bilateral pleur al effusions. Patient is still getting IV fluids at a rate of 100, we will turn it was down, and give the patient a dose of IV Lasix, today's labs have been reviewed, showing white blood cell count 8.3, hemoglobin of 6.8, platelet count 293, sodium was 143, potassium was 5.4, chloride was 117, CO2 was 22, BUN was 53, creatinine was 2.94. No report of any further rectal bleeding; we will continue to monitor H&H closely and transfuse when needed 10/31/2019 patient is seen and evaluatedin follow-up in the intensive care unit. He is awake and alert in no acute distress. His hemoglobin was 6.6 earlier this morning. He is receiving his fourth unit of packed red blood cells in total this admission. He did undergo an EGD this morning and was found to have a large adherent clot along the duodenal sweep which was removed. A deep ulceration with active bleeding was visible. Epinephrine and Endo Clip placement obtained good hemostasis. There are large clots in the stomach. NG tube remains in place. He remains on Protonix 40 mg every 12 hours. Surgical consult was placed. He is currently afebrile. Hemodynamically stable. He is on 10 L high flow nasal cannula to maintain O2 saturations in the mid 90s. 0.9 normal saline at 50 MLS per hour. Remains on Unasyn. Chest x-ray shows some evidence of fluid volume overload and small effusions. White count 5.1. Creatinine 2.77. patient's family is at bedside and on inquiring about transferring the patient to [place]; did advise and son that patient is unstable at this time and family will have to discuss this with case management on Saturday11/01/2019 Patient is seen and evaluated in the room at bedside; patient has been having profuse rectal bleeding; patient underwent EGD which showed bleeding duodenal ulcer, Endo Clip was applied; patient had an episode of dark stools during the night but started bleeding profusely this afternoon; stat H&H is done which shows hemoglobin at 6.0; patient has been started on IV Levophed to maintain blood pressure; patient was evaluated by GI, ICU team and surgery and was recommended transferred to a tertiary care center; [facility] was consulted and transfer arrangements to [facility] surgical ICU were made; patient was deemed unstable for transfer and is taken to OR by the surgical team 11/10/2019 in follow-up on the regular medical floor. He is awake and alert in no acute distress. He denies any worsening shortness of breath, cough or congestion. He is maintaining O2 saturations 90% on 4 L/m per nasal cannula. He did have an episode of atrial fibrillation with a rapid ventricular response this morning. Currently stable with a rate in the 70s. Cardiology is on the case. No current signs of active bleeding. Hemoglobin 8.6. He is status post 9 units of packed red blood cells and 1 unit of fresh frozen plasma this admission. Blood cultures reveal no growth. White count 6.6. Creatinine 2.20. Objective - Vital Signs Vital signs: Vital Signs Temp 98.4 F 11/10/19 05:00 Pulse 84 11/10/19 11:39 Resp 20 11/10/19 05:00 BP 112/64 11/10/19 08:09 Pulse Ox 90 L 11/10/19 08:09 Intake & Output 11/09/19 11/10/19 11/10/19 18:59 06:59 18:59 Intake Total 1020 700 445.5 Output Total 1645 2100 70 Balance -625 -1400 375.5 Weight 92.9 kg Intake: IV 480 Fluconazole in NaCl,Iso- 50 Osm 100 mg In Saline 1 50ml.bag @ 50 mls/hr IVPB DAILY [facility] Rx#:[id number] Mvi, Adult No.4 with Vit 270 K 10 ml Trace (Conc-1Ml/ Dose) 1 ml Sodium Acetate 30 meq Magnesium Sulfate gm 1 gm Calcium Gluconate 1 gm Potassium Chloride 20 meq In Amino Acid 5%-D15w 1,000 ml @ 90 mls/hr IV .BY DURATION [facility] Rx#:[id number] Potassium Chloride 10 meq 100 In Water For Injection 1 100ml.bag @ 100 mls/hr IVPB Q1H [facility] Rx#: [id number] Sodium Chloride 0.9% 1, 60 000 ml @ 20 mls/hr IV . Q24H [facility] Rx#:[id number] Intake, IV Titration 445.5 Amount Mvi, Adult No.4 with Vit 445.5 K 10 ml Trace (Conc-1Ml/ Dose) 1 ml Sodium Phosphate 15 mmol Magnesium Sulfate gm 1 gm Calcium Gluconate 1 gm Potassium Chloride 20 meq In Amino Acid 5%-D15w 1, 000 ml @ 90 mls/hr IV .BY DURATION [facility] Rx#: [id number] Oral 540 700 Output: Drainage 95 100 70 Right Lower Abdomen 95 100 70 Urine 1300 2000 Post Void Residual 250 Other: Voiding Method Indwelling Catheter Indwelling Catheter # Voids 1 ABP, PAP, CO, CI - Last Documented Arterial Blood Pressure 168/55 - Exam PHYSICAL EXAMINATION: GENERAL: The patient is alert and oriented x3, not in any acute distress. Well developed, well nourished. HEENT: Pupils are round and equally reacting to light. EOMI. No scleral icterus. No conjunctival pallor. Normocephalic, atraumatic. No pharyngeal erythema. No thyromegaly. CARDIOVASCULAR: S1 and S2 present. No murmurs, rubs, or gallops. PULMONARY: Chest is clear to auscultation, no wheezing or crackles. ABDOMEN: Soft, nontender, nondistended, normoactive bowel sounds. No palpable organomegaly. MUSCULOSKELETAL: No joint swelling or deformity. EXTREMITIES: No cyanosis, clubbing, or pedal edema. NEUROLOGICAL: Gross neurological examination did not reveal any focal deficits. SKIN: No rashes. - Labs CBC & Chem 7: 11/10/19 08:04 11/10/19 08:04 Labs: Abnormal Lab Results - Last 24 Hours (Table) 11/02/19 11/09/19 11/09/19 Range/Units 01:15 15:56 20:26 RBC (4.30-5.90) m/uL Hgb (13.0-17.5) gm/dL Hct (39.0-53.0) % BUN (9-20) mg/dL Creatinine (0.66-1.25) mg/dL Glucose (74-99) mg/dL POC Glucose (mg/dL) 287 H 373 H (75-99) mg/dL Calcium (8.4-10.2) mg/dL Albumin (3.5-5.0) g/dL Triglycerides (<150) mg/dL TSH (0.465-4.680) mIU/L Echovirus Type 11 Ab 1:80 H (<1:10) 11/10/19 11/10/19 11/10/19 Range/Units 00:03 04:23 07:24 RBC (4.30-5.90) m/uL Hgb (13.0-17.5) gm/dL Hct (39.0-53.0) % BUN (9-20) mg/dL Creatinine (0.66-1.25) mg/dL Glucose (74-99) mg/dL POC Glucose (mg/dL) 310 H 207 H 197 H (75-99) mg/dL Calcium (8.4-10.2) mg/dL Albumin (3.5-5.0) g/dL Triglycerides (<150) mg/dL TSH (0.465-4.680) mIU/L Echovirus Type 11 Ab (<1:10) 11/10/19 11/10/19 11/10/19 Range/Units 08:04 08:04 08:04 RBC 2.92 L (4.30-5.90) m/uL Hgb 8.6 L (13.0-17.5) gm/dL Hct 26.5 L (39.0-53.0) % BUN 42 H (9-20) mg/dL Creatinine 2.20 H (0.66-1.25) mg/dL Glucose 188 H (74-99) mg/dL POC Glucose (mg/dL) (75-99) mg/dL Calcium 8.3 L (8.4-10.2) mg/dL Albumin 2.4 L (3.5-5.0) g/dL Triglycerides 158 H (<150) mg/dL TSH <0.015 L (0.465-4.680) mIU/L Echovirus Type 11 Ab (<1:10) 11/10/19 Range/Units 12:31 RBC (4.30-5.90) m/uL Hgb (13.0-17.5) gm/dL Hct (39.0-53.0) % BUN (9-20) mg/dL Creatinine (0.66-1.25) mg/dL Glucose (74-99) mg/dL POC Glucose (mg/dL) 297 H (75-99) mg/dL Calcium (8.4-10.2) mg/dL Albumin (3.5-5.0) g/dL Triglycerides (<150) mg/dL TSH (0.465-4.680) mIU/L Echovirus Type 11 Ab (<1:10) Microbiology - Last 24 Hours (Table) 11/05/19 05:00 Blood Culture - Preliminary Blood No Growth after 120 hours 11/07/19 18:22 Blood Culture - Preliminary Blood No Growth after 48 hours 11/07/19 17:59 Blood Culture - Preliminary Blood No Growth after 48 hours Assessment and Plan Assessment: Acute blood loss anemia - Patient is status post EGD/colonoscopy which revealed duodenal ulcer without any active bleeding with the large interior clot in the second portion of duodenum; colonoscopy revealed ischemic colitis and left colon; by this is done and results are pending patient will need upper GI endoscopy gastric body was consulted will transfuse him 2 units of blood and patient is bit hypotensive continue with IV fluids at 100 mL/h hold off on antidepressant medications except for metoprolol. Patient is presently on Protonix IV twice a day -Current artery disease continue with metoprolol hold off rest of the blood pressure medications and aspirin because of GI bleed -Hypertension patient is presently hypotensive secondary to GI bleed holding off on lisinopril, hydralazine. -Renal failure: I do not have any previous creatinine available patient denied any history of chronic kidney disease, patient may have acute renal failure fro m prerenal azotemia from acute GI bleed. 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 -Continued nicotine use: Counseling was provided for above-mentioned chronic medical problems patient will be resumed on appropriate home medications.
[2019-11-10 20:14] LABS: Glucose,Whole Blood 267 mg/dL (75-99)
[2019-11-10] MEDS: ATORVASTATIN 10 MG TAB PO SCH (20:18)
[2019-11-11] MEDS: PIPERACILLIN-TAZOBACTAM 3.375 GM in SODIUM CHLORIDE 0.9% 100 ML IVPB SCH ×3 (03:41→21:25)
[2019-11-11] MEDS: LEVOTHYROXINE 125 MCG TAB PO SCH (05:46)
[2019-11-11 07:09] LABS: Glucose,Whole Blood 170 mg/dL (75-99)
[2019-11-11 07:23] LABS: Basophils % (A) 0 %; Eosinophils # (A) 0.3 k/uL (0-0.7); Eosinophils % (A) 5 %; HCT 25.2 % (39.0-53.0); HGB 8.3 gm/dL (13.0-17.5); Hypochromasia Slight; Lymphocytes # (A) 0.8 k/uL (1.0-4.8); Lymphocytes % (A) 14 %; MCV 90.8 fL (80.0-100.0); Mean Platelet Volume 8.3; Monocytes # (A) 0.4 k/uL (0-1.0); Monocytes % (A) 7 %; Neutrophils # (A) 4.2 k/uL (1.3-7.7); Neutrophils % (A) 71 %; Platelet Count 166 k/uL (150-450); RBC 2.77 m/uL (4.30-5.90); RDW 15.5 % (11.5-15.5); WBC 5.9 k/uL (3.8-10.6)
[2019-11-11 07:51] LABS: Calcium 8.4 mg/dL (8.4-10.2); Magnesium 2.1 mg/dL (1.6-2.3); Phosphorus 3.7 mg/dL (2.5-4.5); Potassium 3.7 mmol/L (3.5-5.1)
[2019-11-11] MEDS: FORMOTEROL FUMARATE 20 MCG/2 ML NEBU INHALATION SCH ×2 (08:13→19:41)
[2019-11-11] MEDS: BUDESONIDE 1 MG/2 ML NEBU INHALATION SCH ×2 (08:13→19:41)
[2019-11-11] MEDS: IPRATROPIUM-ALBUTEROL 3 ML NEB INHALATION SCH ×4 (08:13→19:41)
[2019-11-11] MEDS: LINAGLIPTIN 5 MG TABLET PO SCH (08:20)
[2019-11-11] MEDS: FLUCONAZOLE IN NACL,ISO-OSM 100 MG in SALINE 1 50ML.BAG IVPB SCH (08:20)
[2019-11-11] MEDS: PREGABALIN 50 MG CAP PO SCH ×2 (08:20→21:20)
[2019-11-11] MEDS: AMIODARONE 200 MG TAB PO SCH ×2 (08:20→21:20)
[2019-11-11] MEDS: amLODIPine 10 MG TAB PO SCH (08:20)
[2019-11-11] MEDS: NICOTINE 14MG/24HR PATCH TRANSDERM SCH (08:20)
[2019-11-11] MEDS: METOPROLOL TARTRATE 50 MG TAB PO SCH ×2 (08:20→21:20)
[2019-11-11] MEDS: INSULIN ASPART (NovoLOG) 100 UNIT/ML VIAL SQ SCH ×4 (08:20→21:33)
[2019-11-11] MEDS: hydrALAZINE HCL 50 MG TAB PO SCH ×3 (08:20→21:20)
[2019-11-11] MEDS: PANTOPRAZOLE 40 MG/10 ML VIAL IV SCH ×2 (08:20→21:29)
[2019-11-11] MEDS: LIOTHYRONINE SODIUM 5 MCG TAB PO SCH (08:20)
[2019-11-11] MEDS: LIDOCAINE 5% PATCH TOPICAL SCH (08:21)
--- NOTE | 2019-11-11 09:51 | P.PN ---
Subjective Progress Note Date: 11/11/19 CHIEF COMPLAINT: Bleeding duodenal ulcer HISTORY OF PRESENT ILLNESS: 78-year-old male who is status post exploratory laparotomy with duodenotomy and oversewing of bleeding duodenal ulcer. Patient examined this morning at the bedside with Dr. Jessica. Patient denies abdominal pain. Denies nausea or vomiting. No bloody stools. Hemoglobin 8.3 today. PHYSICAL EXAM: VITAL SIGNS: Reviewed. GENERAL: Well-developed in no acute distress HEENT: No sclera icterus. Extraocular movements grossly intact. Moist buccal mucosa. Head is atraumatic, normocephalic. ABDOMEN: Soft. Nondistended. Surgical dressing clean dry intact. IVELISSE drain with serosanguineous drainage NEUROLOGIC: Awake and alert. ASSESSMENT: 1. Bleeding duodenal ulcer, status post exploratory laparotomy with duodenotomy and oversewing of bleeding duodenal ulcer 2. Acute blood loss anemia PLAN: -Continue to monitor hemoglobin -Continue abdominal dressing changes with telfa michael. Change daily. -Monitor drainage from IVELISSE drain -Continue full liquid diet. If patients hemoglobin remains stable tomorrow will likely advance diet Nurse practitioner note has been reviewed by physician. Signing provider agrees with the documented findings, assessment, and plan of care. Objective - Vital Signs Vital signs: Vital Signs Temp 97.8 F 11/11/19 06:05 Pulse 75 11/11/19 06:05 Resp 20 11/11/19 06:05 BP 158/64 11/11/19 06:05 Pulse Ox 94 L 11/11/19 06:05 Intake & Output 11/10/19 11/11/19 11/11/19 18:59 06:59 18:59 Intake Total 1155.5 400 Output Total 130 3060 Balance 1025.5 -2660 Intake: IV 710 Fluconazole in NaCl,Iso- 50 Osm 100 mg In Saline 1 50ml.bag @ 50 mls/hr IVPB DAILY [facility] Rx#:[id number] Mvi, Adult No.4 with Vit 560 K 10 ml Trace (Conc-1Ml/ Dose) 1 ml Sodium Acetate 30 meq Magnesium Sulfate gm 1 gm Calcium Gluconate 1 gm Potassium Chloride 20 meq In Amino Acid 5%-D15w 1,000 ml @ 90 mls/hr IV .BY DURATION [facility] Rx#:[id number] Piperacillin-Tazobactam 3 100 .375 gm In Sodium Chloride 0.9% 100 ml @ 25 mls/hr IVPB Q8H [facility] Rx#: [id number] Intake, IV Titration 445.5 Amount Mvi, Adult No.4 with Vit 445.5 K 10 ml Trace (Conc-1Ml/ Dose) 1 ml Sodium Phosphate 15 mmol Magnesium Sulfate gm 1 gm Calcium Gluconate 1 gm Potassium Chloride 20 meq In Amino Acid 5%-D15w 1, 000 ml @ 90 mls/hr IV .BY DURATION [facility] Rx#: [id number] Oral 400 Output: Drainage 130 60 Right Lower Abdomen 130 60 Urine 3000 Uretheral (Cohen) 1500 Other: Voiding Method Indwelling Catheter Indwelling Catheter ABP, PAP, CO, CI - Last Documented Arterial Blood Pressure 168/55 - Labs CBC & Chem 7: 11/11/19 07:00 11/11/19 07:00 Labs: Abnormal Lab Results - Last 24 Hours (Table) 11/10/19 11/10/19 11/10/19 Range/Units 08:04 12:31 17:07 RBC (4.30-5.90) m/uL Hgb (13.0-17.5) gm/dL Hct (39.0-53.0) % Lymphocytes # (1.0-4.8) k/uL BUN (9-20) mg/dL Creatinine (0.66-1.25) mg/dL Glucose (74-99) mg/dL POC Glucose (mg/dL) 297 H 273 H (75-99) mg/dL TSH <0.015 L (0.465-4.680) mIU/L 11/10/19 11/11/19 11/11/19 Range/Units 20:00 07:00 07:00 RBC 2.77 L (4.30-5.90) m/uL Hgb 8.3 L (13.0-17.5) gm/dL Hct 25.2 L (39.0-53.0) % Lymphocytes # 0.8 L (1.0-4.8) k/uL BUN 41 H (9-20) mg/dL Creatinine 2.36 H (0.66-1.25) mg/dL Glucose 148 H (74-99) mg/dL POC Glucose (mg/dL) 267 H (75-99) mg/dL TSH (0.465-4.680) mIU/L 11/11/19 Range/Units 07:05 RBC (4.30-5.90) m/uL Hgb (13.0-17.5) gm/dL Hct (39.0-53.0) % Lymphocytes # (1.0-4.8) k/uL BUN (9-20) mg/dL Creatinine (0.66-1.25) mg/dL Glucose (74-99) mg/dL POC Glucose (mg/dL) 170 H (75-99) mg/dL TSH (0.465-4.680) mIU/L Microbiology - Last 24 Hours (Table) 11/05/19 05:00 Blood Culture - Final Blood No Growth after 144 hours 11/07/19 18:22 Blood Culture - Preliminary Blood No Growth after 72 hours 11/07/19 17:59 Blood Culture - Preliminary Blood No Growth after 72 hours
[2019-11-11 12:10] LABS: Glucose,Whole Blood 194 mg/dL (75-99)
--- NOTE | 2019-11-11 13:36 | PN ---
PROGRESS NOTE Mr. Obregon is an 79-year-old male who presented with GI bleeding, required surgical intervention. He had episode of atrial fibrillation. He is feeling better today. He could not sleep but he has no chest pain. No dizziness. No palpitation. He denies any nausea. He was started on amiodarone orally yesterday. He continues to be on the amiodarone 200 mg twice a day, amlodipine 10 mg daily, Lipitor 10 mg daily, hydralazine 100 mg 3 times a day, Tradjenta, metoprolol tartrate 50 mg twice a day, Protonix, Lyrica, levothyroxine 0.125 mg daily. PHYSICAL EXAMINATION: Blood pressure running in the 130s with a heart rate in 70s. LUNGS: With the decreased air exchange, no wheezes. HEART: Regular rhythm S1, S2. No S3. No rub appreciated. ABDOMEN: Soft. Mild tenderness. Positive bowel sounds. No organomegaly. EXTREMITIES: No significant edema. LAB DATA: Revealed hemoglobin of 8.3, BUN and creatinine 41 and 2.36. His TSH is less than 0.015, free T4 is 0.93. IMPRESSION: 1. Paroxysmal fibrillation. Patient started on amiodarone yesterday. 2. Low TSH. Patient was on Cytomel and levothyroxine. 3. Recent recurrent gastrointestinal bleeding, status post surgical intervention. 4. Chronic kidney disease. 5. Hypertension. 6. Hyperlipidemia. 7. Diabetes mellitus. RECOMMENDATION: From the cardiac standpoint, his Cytomel will be stopped. He is on the levothyroxine. We will continue on amiodarone at this time. When it is acceptable by the surgical service, I would recommend anticoagulation. Depending on his progress further recommendation will be made. MMODL / IJN: [id number] /
[2019-11-11 16:57] LABS: Glucose,Whole Blood 217 mg/dL (75-99)
[2019-11-11] MEDS: SODIUM CHLORIDE 0.9% 1,000 ML IV SCH (17:21)
[2019-11-11 20:26] LABS: Glucose,Whole Blood 251 mg/dL (75-99)
[2019-11-11] MEDS: ATORVASTATIN 10 MG TAB PO SCH (21:20)
[2019-11-12] MEDS: HYDROmorphone 1 MG/ML 1 ML SYRINGE IVP PRN ×3 (01:51→14:51)
[2019-11-12] MEDS: PIPERACILLIN-TAZOBACTAM 3.375 GM in SODIUM CHLORIDE 0.9% 100 ML IVPB SCH ×3 (04:57→22:45)
[2019-11-12] MEDS: LEVOTHYROXINE 125 MCG TAB PO SCH (04:59)
[2019-11-12 07:26] LABS: Glucose,Whole Blood 160 mg/dL (75-99)
[2019-11-12] MEDS: amLODIPine 10 MG TAB PO SCH (08:09)
[2019-11-12] MEDS: METOPROLOL TARTRATE 50 MG TAB PO SCH ×2 (08:09→20:56)
[2019-11-12] MEDS: PREGABALIN 50 MG CAP PO SCH ×2 (08:09→20:57)
[2019-11-12] MEDS: LINAGLIPTIN 5 MG TABLET PO SCH (08:10)
[2019-11-12] MEDS: hydrALAZINE HCL 50 MG TAB PO SCH ×3 (08:10→20:56)
[2019-11-12] MEDS: PANTOPRAZOLE 40 MG/10 ML VIAL IV SCH ×2 (08:10→20:57)
[2019-11-12] MEDS: NICOTINE 14MG/24HR PATCH TRANSDERM SCH (08:10)
[2019-11-12] MEDS: AMIODARONE 200 MG TAB PO SCH ×2 (08:10→20:56)
[2019-11-12] MEDS: ARTIFICIAL TEARS-HYPROMELLOSE DROPS 15 ML BTL BOTH EYES PRN (08:10)
[2019-11-12] MEDS: LIDOCAINE 5% PATCH TOPICAL SCH ×2 (08:11→08:22)
[2019-11-12] MEDS: INSULIN ASPART (NovoLOG) 100 UNIT/ML VIAL SQ SCH ×4 (08:11→22:45)
[2019-11-12] MEDS ORDERED: BISACODYL 10 MG SUPP RECTAL PRN (09:23)
--- NOTE | 2019-11-12 09:23 | P.PN ---
<VanegasAndie Bridgette - Last Filed: 11/12/19 09:20> Subjective Progress Note Date: 11/12/19 CHIEF COMPLAINT: Bleeding duodenal ulcer HISTORY OF PRESENT ILLNESS: 78-year-old male who is status post exploratory laparotomy with duodenotomy and oversewing of bleeding duodenal ulcer. Patient examined this morning at the bedside. Patient denies abdominal pain. Denies nausea or vomiting. Patient with uncontrolled afib overnight. Heart rate improving after administration of morning medications. Cardiology following. No bloody stools. Todays hemoglobin pending. PHYSICAL EXAM: VITAL SIGNS: Reviewed. GENERAL: Well-developed in no acute distress HEENT: No sclera icterus. Extraocular movements grossly intact. Moist buccal mucosa. Head is atraumatic, normocephalic. ABDOMEN: Soft. Nondistended. Surgical dressing clean dry intact. incision without redness or significant drainage. Aquacel silver x 3 to open areas of midline incision. IVELISSE drain with serous drainage NEUROLOGIC: Awake and alert. ASSESSMENT: 1. Bleeding duodenal ulcer, status post exploratory laparotomy with duodenotomy and oversewing of bleeding duodenal ulcer 2. Acute blood loss anemia PLAN: -Cardiology following for afib with RVR -Continue abdominal dressing changes with Aquacel silver. Change daily. -Monitor drainage from IVELISSE drain -Await hemoglobin results from this AM. If hemoglobin stable, will advance diet Nurse practitioner note has been reviewed by physician. Signing provider agrees with the documented findings, assessment, and plan of care. Objective - Vital Signs Vital signs: Vital Signs Temp 97.6 F 11/12/19 05:00 Pulse 88 11/12/19 05:00 Resp 20 11/12/19 05:00 BP 149/60 11/12/19 05:00 Pulse Ox 93 L 11/12/19 05:00 Intake & Output 11/11/19 11/12/19 11/12/19 18:59 06:59 18:59 Intake Total 310 330 Output Total 770 500 535 Balance -460 -041 -751 Intake: IV 310 130 Fat Emulsion 20% 250 ml @ 0 20.833 mls/hr IV DAILY@ 1400 [facility] Rx#:[id number] Fluconazole in NaCl,Iso- 50 Osm 100 mg In Saline 1 50ml.bag @ 50 mls/hr IVPB DAILY [facility] Rx#:[id number] Piperacillin-Tazobactam 3 100 100 .375 gm In Sodium Chloride 0.9% 100 ml @ 25 mls/hr IVPB Q8H [facility] Rx#: [id number] Sodium Chloride 0.9% 1, 160 30 000 ml @ 20 mls/hr IV . Q24H [facility] Rx#:[id number] Intake, IV Titration 0 Amount Potassium Chloride 20 meq 0 In Water For Injection 1 100ml.bag @ 50 mls/hr IVPB Q2H [facility] Rx#: [id number] Sodium Phosphate 15 mmol 0 Magnesium Sulfate gm 1 gm Calcium Gluconate 1 gm Potassium Chloride 20 meq In Amino Acid 5%-D15w 1, 000 ml @ 90 mls/hr IV .BY DURATION [facility] Rx#: [id number] Oral 200 Output: Drainage 120 35 Right Lower Abdomen 120 35 Urine 650 500 500 Uretheral (Cohen) 500 Other: Voiding Method Indwelling Catheter Indwelling Catheter # Voids 0 ABP, PAP, CO, CI - Last Documented Arterial Blood Pressure 168/55 - Labs CBC & Chem 7: 11/11/19 07:00 11/11/19 07:00 Labs: Abnormal Lab Results - Last 24 Hours (Table) 11/11/19 11/11/19 11/11/19 Range/Units 12:06 16:50 20:20 POC Glucose (mg/dL) 194 H 217 H 251 H (75-99) mg/dL 11/12/19 Range/Units 07:18 POC Glucose (mg/dL) 160 H (75-99) mg/dL Microbiology - Last 24 Hours (Table) 11/07/19 18:22 Blood Culture - Preliminary Blood No Growth after 96 hours 11/07/19 17:59 Blood Culture - Preliminary Blood No Growth after 96 hours 11/05/19 05:00 Blood Culture - Final Blood No Growth after 144 hours <Jose Gifford - Last Filed: 11/12/19 09:49> Subjective As above. Patient with episode of A. fib last night. Clinically no evidence of bleeding. Hemoglobin today stable at 8.8. IVELISSE drain is serous. We'll remove drain at this time. Increase diet to dysphagia diet. Continue physical therapy. Patient high risk for rebleeding at this time. Risks versus benefits of systemic anticoagulation reviewed briefly with the patient. He is agreeable to holding anticoagulation at this time realizing there is a increased risk of thromboembolic events. Appreciate cardiology input. Objective - Vital Signs Vital signs: Vital Signs Temp 97.6 F 11/12/19 05:00 Pulse 74 11/12/19 09:46 Resp 20 11/12/19 05:00 BP 149/60 11/12/19 05:00 Pulse Ox 95 11/12/19 09:33 Intake & Output 11/11/19 11/12/19 11/12/19 18:59 06:59 18:59 Intake Total 310 330 Output Total 770 500 535 Balance -460 -170 -535 Intake: IV 310 130 Fat Emulsion 20% 250 ml @ 0 20.833 mls/hr IV DAILY@ 1400 [facility] Rx#:[id number] Fluconazole in NaCl,Iso- 50 Osm 100 mg In Saline 1 50ml.bag @ 50 mls/hr IVPB DAILY [facility] Rx#:[id number] Piperacillin-Tazobactam 3 100 100 .375 gm In Sodium Chloride 0.9% 100 ml @ 25 mls/hr IVPB Q8H [facility] Rx#: [id number] Sodium Chloride 0.9% 1, 160 30 000 ml @ 20 mls/hr IV . Q24H [facility] Rx#:[id number] Intake, IV Titration 0 Amount Potassium Chloride 20 meq 0 In Water For Injection 1 100ml.bag @ 50 mls/hr IVPB Q2H [facility] Rx#: [id number] Sodium Phosphate 15 mmol 0 Magnesium Sulfate gm 1 gm Calcium Gluconate 1 gm Potassium Chloride 20 meq In Amino Acid 5%-D15w 1, 000 ml @ 90 mls/hr IV .BY DURATION [facility] Rx#: [id number] Oral 200 Output: Drainage 120 35 Right Lower Abdomen 120 35 Urine 650 500 500 Uretheral (Cohen) 500 Other: Voiding Method Indwelling Catheter Indwelling Catheter # Voids 0 ABP, PAP, CO, CI - Last Documented Arterial Blood Pressure 168/55 - Labs CBC & Chem 7: 11/12/19 09:11 11/11/19 07:00 Labs: Abnormal Lab Results - Last 24 Hours (Table) 11/11/19 11/11/19 11/11/19 Range/Units 12:06 16:50 20:20 RBC (4.30-5.90) m/uL Hgb (13.0-17.5) gm/dL Hct (39.0-53.0) % RDW (11.5-15.5) % Lymphocytes # (1.0-4.8) k/uL POC Glucose (mg/dL) 194 H 217 H 251 H (75-99) mg/dL 11/12/19 11/12/19 Range/Units 07:18 09:11 RBC 2.96 L (4.30-5.90) m/uL Hgb 8.8 L (13.0-17.5) gm/dL Hct 27.5 L (39.0-53.0) % RDW 15.6 H (11.5-15.5) % Lymphocytes # 0.8 L (1.0-4.8) k/uL POC Glucose (mg/dL) 160 H (75-99) mg/dL Microbiology - Last 24 Hours (Table) 11/07/19 18:22 Blood Culture - Preliminary Blood No Growth after 96 hours 11/07/19 17:59 Blood Culture - Preliminary Blood No Growth after 96 hours 11/05/19 05:00 Blood Culture - Final Blood No Growth after 144 hours Assessment and Plan (1) Bleeding duodenal ulcer Current Visit: Yes Status: Acute Code(s): K26.4 - CHRONIC OR UNSPECIFIED DUODENAL ULCER WITH HEMORRHAGE SNOMED Code(s): 60637707
[2019-11-12] MEDS ORDERED: DOCUSATE 100 MG CAP PO PRN (09:24)
[2019-11-12] MEDS: BUDESONIDE 1 MG/2 ML NEBU INHALATION SCH ×2 (09:31→19:16)
[2019-11-12] MEDS: FORMOTEROL FUMARATE 20 MCG/2 ML NEBU INHALATION SCH ×2 (09:31→19:15)
[2019-11-12] MEDS: IPRATROPIUM-ALBUTEROL 3 ML NEB INHALATION SCH ×4 (09:31→19:15)
[2019-11-12 09:40] LABS: Basophils # (A) 0.1 k/uL (0-0.2); Basophils % (A) 1 %; Eosinophils # (A) 0.2 k/uL (0-0.7); Eosinophils % (A) 4 %; HCT 27.5 % (39.0-53.0); HGB 8.8 gm/dL (13.0-17.5); Hypochromasia Slight; Lymphocytes # (A) 0.8 k/uL (1.0-4.8); Lymphocytes % (A) 15 %; MCH 29.6 pg (25.0-35.0); MCHC 31.9 g/dL (31.0-37.0); MCV 92.8 fL (80.0-100.0); Mean Platelet Volume 8.3; Monocytes # (A) 0.3 k/uL (0-1.0); Monocytes % (A) 5 %; Neutrophils # (A) 3.9 k/uL (1.3-7.7); Neutrophils % (A) 73 %; Platelet Count 175 k/uL (150-450); RBC 2.96 m/uL (4.30-5.90); RDW 15.6 % (11.5-15.5); WBC 5.4 k/uL (3.8-10.6)
[2019-11-12] MEDS: FLUCONAZOLE IN NACL,ISO-OSM 100 MG in SALINE 1 50ML.BAG IVPB SCH (10:02)
[2019-11-12 10:04] LABS: Calcium 8.5 mg/dL (8.4-10.2); Magnesium 2.1 mg/dL (1.6-2.3); Phosphorus 4.3 mg/dL (2.5-4.5); Potassium 4.1 mmol/L (3.5-5.1)
--- NOTE | 2019-11-12 10:34 | P.PN ---
Subjective Progress Note Date: 11/12/19 This is a pleasant 79-year-old gentleman who was initially admitted on 10/28/2018 for GI bleed. He's had a long and complicated hospital course with recurrent bleeding transfusion of multiple units of packed red blood cells and multiple procedures for duodenal ulcers including most recently on November 01 a duodenotomy and oversewing of bleeding duodenal ulcer by Dr. Gifford. He is currently on TPN and lipids. While in the intensive care unit the patient did have episodes of "SVT" and was treated with boluses of IV amiodarone. We were asked to see the patient in consultation today for episodes of tachycardia with heart rate in the 170s. Upon review of EKG from this morning, appears to be atrial fibrillation with rapid ventricular response however patient has had episodes of SVT on previous EKGs. As well as EKGs that showed likely atrial fibrillation with controlled ventricular response and EKGs with sinus rhythm with frequent PACs. Currently patient is maintaining sinus rhythm. He has on metoprolol 50 mg by mouth twice a day. Patient did have a 2-D echo with Doppler done this admission which showed a normal LV systolic function with an ejection fraction between 60-65% and mild tricuspid regurgitation. He is currently on levothyroxine 125 g by mouth daily, no recent TSH available. Vital signs show blood pressure to be somewhat elevated at times as high as the 180s systolic wi th a heart rate in the 60s, 70s and 80s. Patient does verbalize a history of cardiac workup 7-8 years ago at the [facility] and a right and was told he had a minor blockage in one of the arteries on the left side of his heart and was treated medically at that time. 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 He has had episodes of rapid heartbeat at home that are brief in duration and occur rarely. During the time of A. fib with RVR the patient was symptomatic with some shortness of breath, lightheadedness and could feel his heart racing. 11/12/19 The patient was seen and examined this morning resting comfortably in bed. Patient has apparently been having episodes of PAF with RVR starting around midnight through this morning. Currently in sinus rhythm. Again the patient is symptomatic with these episodes with some dizziness as well as shortness of breath and palpitations. The patient Cytomel was discontinued due to a TSH of less than 0.15. Free T4 was normal. He remains on levothyroxine 125 g daily. Currently on metoprolol tartrate 50 mg by mouth twice a day and amiodarone 200 mg by mouth twice a day. I did speak to Dr. Plascencia this morning who would favor of not anticoagulating the patient as recurrent GI bleed could be detrimental. Laboratory values from this morning revealed. Hemoglobin is stable at 8.8. BUN is 39 and creatinine is 2.48 which is up from 2.36 yesterday. Objective - Vital Signs Vital signs: Vital Signs Temp 97.6 F 11/12/19 05:00 Pulse 72 11/12/19 09:54 Resp 20 11/12/19 05:00 BP 149/60 11/12/19 05:00 Pulse Ox 95 11/12/19 09:33 Intake & Output 11/11/19 11/12/19 11/12/19 18:59 06:59 18:59 Intake Total 310 330 Output Total 770 500 535 Balance -460 170 535 Intake: IV 310 130 Fat Emulsion 20% 250 ml @ 0 20.833 mls/hr IV DAILY@ 1400 [facility] Rx#:[id number] Fluconazole in NaCl,Iso- 50 Osm 100 mg In Saline 1 50ml.bag @ 50 mls/hr IVPB DAILY [facility] Rx#:[id number] Piperacillin-Tazobactam 3 100 100 .375 gm In Sodium Chloride 0.9% 100 ml @ 25 mls/hr IVPB Q8H [facility] Rx#: [id number] Sodium Chloride 0.9% 1, 160 30 000 ml @ 20 mls/hr IV . Q24H [facility] Rx#:[id number] Intake, IV Titration 0 Amount Potassium Chloride 20 meq 0 In Water For Injection 1 100ml.bag @ 50 mls/hr IVPB Q2H [facility] Rx#: [id number] Sodium Phosphate 15 mmol 0 Magnesium Sulfate gm 1 gm Calcium Gluconate 1 gm Potassium Chloride 20 meq In Amino Acid 5%-D15w 1, 000 ml @ 90 mls/hr IV .BY DURATION [facility] Rx#: [id number] Oral 200 Output: Drainage 120 35 Right Lower Abdomen 120 35 Urine 650 500 500 Uretheral (Cohen) 500 Other: Voiding Method Indwelling Catheter Indwelling Catheter # Voids 0 ABP, PAP, CO, CI - Last Documented Arterial Blood Pressure 168/55 - Exam PHYSICAL EXAMINATION: HEENT: Head is atraumatic, normocephalic. Pupils equal, round. Neck is supple. There is no elevated jugular venous pressure. HEART EXAMINATION: Heart sounds regular, S1 and S2 with a systolic murmur. CHEST EXAMINATION: Lungs are clear to auscultation. No chest wall tenderness is noted on palpation or with deep breathing. ABDOMEN: Soft, mild tenderness. Bowel sounds active. Abdominal incision noted. EXTREMITIES: 2+ peripheral pulses with evidence of mild right lower extremity edema and no calf tenderness noted. NEUROLOGIC patient is awake, alert and oriented x3. - Labs CBC & Chem 7: 11/12/19 09:11 11/12/19 09:11 Labs: Abnormal Lab Results - Last 24 Hours (Table) 11/11/19 11/11/19 11/11/19 Range/Units 12:06 16:50 20:20 RBC (4.30-5.90) m/uL Hgb (13.0-17.5) gm/dL Hct (39.0-53.0) % RDW (11.5-15.5) % Lymphocytes # (1.0-4.8) k/uL BUN (9-20) mg/dL Creatinine (0.66-1.25) mg/dL Glucose (74-99) mg/dL POC Glucose (mg/dL) 194 H 217 H 251 H (75-99) mg/dL 11/12/19 11/12/19 11/12/19 Range/Units 07:18 09:11 09:11 RBC 2.96 L (4.30-5.90) m/uL Hgb 8.8 L (13.0-17.5) gm/dL Hct 27.5 L (39.0-53.0) % RDW 15.6 H (11.5-15.5) % Lymphocytes # 0.8 L (1.0-4.8) k/uL BUN 39 H (9-20) mg/dL Creatinine 2.48 H (0.66-1.25) mg/dL Glucose 151 H (74-99) mg/dL POC Glucose (mg/dL) 160 H (75-99) mg/dL Microbiology - Last 24 Hours (Table) 11/07/19 18:22 Blood Culture - Preliminary Blood No Growth after 96 hours 11/07/19 17:59 Blood Culture - Preliminary Blood No Growth after 96 hours 11/05/19 05:00 Blood Culture - Final Blood No Growth after 144 hours Assessment and Plan Assessment: #1 paroxysmal atrial fibrillation at times with rapid ventricular response 2 GI bleed secondary to duodenal ulcer, status post exploratory laparotomy and oversewing of duodenal ulcer #3 acute blood loss anemia secondary GI bleeding #4 chronic kidney disease #5 hypothyroidism #6 hyperlipidemia #7 hypertension #8 type 2 diabetes mellitus Plan: From cardiology perspective, medications were reviewed and we will continue the same. We will hold on anticoagulation as recommended by Dr. Gifford. We'll continue to follow the patient and provide further recommendations accordingly. CLINICAL REVIEWER note has been reviewed, I agree with a documented findings and plan of care. Patient was seen and examined.
[2019-11-12 11:52] LABS: Glucose,Whole Blood 231 mg/dL (75-99)
[2019-11-12] MEDS: SODIUM CHLORIDE 0.9% 1,000 ML IV SCH (14:58)
--- NOTE | 2019-11-12 17:16 | P.PN ---
Subjective Progress Note Date: 11/11/19 Principal diagnosis: GI bleed; status post EGD/colonoscopy Duodenal ulcer/ischemic colitis 10/30/2017 patient seen in follow-up in the intensive care unit; patient's family is at bedside and had multiple questions which were all addressed to her sa pjfaction; patient is status post EGD/colonoscopy which revealed a duodenal ulcer, that was not actively bleeding with a large anterior and clot in the second portion of the duodenum. Colonoscopy revealed ischemic colitis in the left colon with biopsies taken. However the procedure had to be aborted related to poor prep. Lab review shows hemoglobin is 6.8, patient has had 2 units of blood already, and he is receiving an additional unit of blood this morning. Hemodynamically patient is stable, receiving IV fluids, with 0.9 normal saline at a rate of 100 ML per hour. He remains on high flow oxygen, at 10 L and his pulse ox is 92- 93%. Complaints of chest pain, patient does have exertional dyspnea, today's chest x-ray has been reviewed, showing bibasilar atelectasis and bilateral pleur al effusions. Patient is still getting IV fluids at a rate of 100, we will turn it was down, and give the patient a dose of IV Lasix, today's labs have been reviewed, showing white blood cell count 8.3, hemoglobin of 6.8, platelet count 293, sodium was 143, potassium was 5.4, chloride was 117, CO2 was 22, BUN was 53, creatinine was 2.94. No report of any further rectal bleeding; we will continue to monitor H&H closely and transfuse when needed 10/31/2019 patient is seen and evaluatedin follow-up in the intensive care unit. He is awake and alert in no acute distress. His hemoglobin was 6.6 earlier this morning. He is receiving his fourth unit of packed red blood cells in total this admission. He did undergo an EGD this morning and was found to have a large adherent clot along the duodenal sweep which was removed. A deep ulceration with active bleeding was visible. Epinephrine and Endo Clip placement obtained good hemostasis. There are large clots in the stomach. NG tube remains in place. He remains on Protonix 40 mg every 12 hours. Surgical consult was placed. He is currently afebrile. Hemodynamically stable. He is on 10 L high flow nasal cannula to maintain O2 saturations in the mid 90s. 0.9 normal saline at 50 MLS per hour. Remains on Unasyn. Chest x-ray shows some evidence of fluid volume overload and small effusions. White count 5.1. Creatinine 2.77. patient's family is at bedside and on inquiring about transferring the patient to [place]; did advise and son that patient is unstable at this time and family will have to discuss this with case management on Saturday11/01/2019 Patient is seen and evaluated in the room at bedside; patient has been having profuse rectal bleeding; patient underwent EGD which showed bleeding duodenal ulcer, Endo Clip was applied; patient had an episode of dark stools during the night but started bleeding profusely this afternoon; stat H&H is done which shows hemoglobin at 6.0; patient has been started on IV Levophed to maintain blood pressure; patient was evaluated by GI, ICU team and surgery and was recommended transferred to a tertiary care center; [facility] was consulted and transfer arrangements to [facility] surgical ICU were made; patient was deemed unstable for transfer and is taken to OR by the surgical team 11/10/2019 in follow-up on the regular medical floor. He is awake and alert in no acute distress. He denies any worsening shortness of breath, cough or congestion. He is maintaining O2 saturations 90% on 4 L/m per nasal cannula. He did have an episode of atrial fibrillation with a rapid ventricular response this morning. Currently stable with a rate in the 70s. Cardiology is on the case. No current signs of active bleeding. Hemoglobin 8.6. He is status post 9 units of packed red blood cells and 1 unit of fresh frozen plasma this admission. Blood cultures reveal no growth. White count 6.6. Creatinine 2.20. 11/11/2019 Patient is seen and evaluated in room at bedside; patient denies any specific complaints Vital signs are reviewed and stable Lab work shows a stable hemoglobin of 8.3 Patient is being followed by surgery for bleeding duodenal ulcer, status post exploratory laparotomy with duodenectomy and oversewing of bleeding duodenal ulcer/ acute blood loss anemia; we are presently continuing to monitor H&H closely; IVELISSE drain remains in place; patient has been started on full liquid diet and will be advanced if hemoglobins remained stable in next 24 hours Objective - Vital Signs Vital signs: Vital Signs Temp 97.8 F 11/11/19 06:05 Pulse 76 11/11/19 11:19 Resp 20 11/11/19 06:05 BP 158/64 11/11/19 06:05 Pulse Ox 94 L 11/11/19 06:05 Intake & Output 11/10/19 11/11/19 11/11/19 18:59 06:59 18:59 Intake Total 1155.5 400 310 Output Total 130 3060 Balance 1025.5 -2660 310 Intake: IV 710 310 Fat Emulsion 20% 250 ml @ 0 20.833 mls/hr IV DAILY@ 1400 [facility] Rx#:[id number] Fluconazole in NaCl,Iso- 50 50 Osm 100 mg In Saline 1 50ml.bag @ 50 mls/hr IVPB DAILY [facility] Rx#:[id number] Mvi, Adult No.4 with Vit 560 K 10 ml Trace (Conc-1Ml/ Dose) 1 ml Sodium Acetate 30 meq Magnesium Sulfate gm 1 gm Calcium Gluconate 1 gm Potassium Chloride 20 meq In Amino Acid 5%-D15w 1,000 ml @ 90 mls/hr IV .BY DURATION [facility] Rx#:[id number] Piperacillin-Tazobactam 3 100 100 .375 gm In Sodium Chloride 0.9% 100 ml @ 25 mls/hr IVPB Q8H [facility] Rx#: [id number] Sodium Chloride 0.9% 1, 160 000 ml @ 20 mls/hr IV . Q24H [facility] Rx#:[id number] Intake, IV Titration 445.5 0 Amount Mvi, Adult No.4 with Vit 445.5 K 10 ml Trace (Conc-1Ml/ Dose) 1 ml Sodium Phosphate 15 mmol Magnesium Sulfate gm 1 gm Calcium Gluconate 1 gm Potassium Chloride 20 meq In Amino Acid 5%-D15w 1, 000 ml @ 90 mls/hr IV .BY DURATION [facility] Rx#: [id number] Potassium Chloride 20 meq 0 In Water For Injection 1 100ml.bag @ 50 mls/hr IVPB Q2H [facility] Rx#: [id number] Sodium Phosphate 15 mmol 0 Magnesium Sulfate gm 1 gm Calcium Gluconate 1 gm Potassium Chloride 20 meq In Amino Acid 5%-D15w 1, 000 ml @ 90 mls/hr IV .BY DURATION [facility] Rx#: [id number] Oral 400 Output: Drainage 130 60 Right Lower Abdomen 130 60 Urine 3000 Uretheral (Cohen) 1500 Other: Voiding Method Indwelling Catheter Indwelling Catheter Indwelling Catheter ABP, PAP, CO, CI - Last Documented Arterial Blood Pressure 168/55 - Exam PHYSICAL EXAMINATION: GENERAL: The patient is alert and oriented x3, not in any acute distress. Well developed, well nourished. HEENT: Pupils are round and equally reacting to light. EOMI. No scleral icterus. No conjunctival pallor. Normocephalic, atraumatic. No pharyngeal erythema. No thyromegaly. CARDIOVASCULAR: S1 and S2 present. No murmurs, rubs, or gallops. PULMONARY: Chest is clear to auscultation, no wheezing or crackles. ABDOMEN: Soft, nontender, nondistended, normoactive bowel sounds. No palpable organomegaly. MUSCULOSKELETAL: No joint swelling or deformity. EXTREMITIES: No cyanosis, clubbing, or pedal edema. NEUROLOGICAL: Gross neurological examination did not reveal any focal deficits. SKIN: No rashes. - Labs CBC & Chem 7: 11/12/19 09:11 11/12/19 09:11 Labs: Abnormal Lab Results - Last 24 Hours (Table) 11/10/19 11/10/19 11/11/19 Range/Units 17:07 20:00 07:00 RBC (4.30-5.90) m/uL Hgb (13.0-17.5) gm/dL Hct (39.0-53.0) % Lymphocytes # (1.0-4.8) k/uL BUN 41 H (9-20) mg/dL Creatinine 2.36 H (0.66-1.25) mg/dL Glucose 148 H (74-99) mg/dL POC Glucose (mg/dL) 273 H 267 H (75-99) mg/dL 11/11/19 11/11/19 11/11/19 Range/Units 07:00 07:05 12:06 RBC 2.77 L (4.30-5.90) m/uL Hgb 8.3 L (13.0-17.5) gm/dL Hct 25.2 L (39.0-53.0) % Lymphocytes # 0.8 L (1.0-4.8) k/uL BUN (9-20) mg/dL Creatinine (0.66-1.25) mg/dL Glucose (74-99) mg/dL POC Glucose (mg/dL) 170 H 194 H (75-99) mg/dL Microbiology - Last 24 Hours (Table) 11/05/19 05:00 Blood Culture - Final Blood No Growth after 144 hours 11/07/19 18:22 Blood Culture - Preliminary Blood No Growth after 72 hours 11/07/19 17:59 Blood Culture - Preliminary Blood No Growth after 72 hours Assessment and Plan Assessment: Acute blood loss anemia - Patient is status post EGD/colonoscopy which revealed duodenal ulcer without any active bleeding with the large interior clot in the second portion of duodenum; colonoscopy revealed ischemic colitis and left colon; by this is done and results are pending patient will need upper GI endoscopy gastric body was consulted will transfuse him 2 units of blood and patient is bit hypotensive continue with IV fluids at 100 mL/h hold off on antidepressant medications except for metoprolol. Patient is presently on Protonix IV twice a day -Current artery disease continue with metoprolol hold off rest of the blood pressure medications and aspirin because of GI bleed -Hypertension patient is presently hypotensive secondary to GI bleed holding off on lisinopril, hydralazine. -Renal failure: I do not have any previous creatinine available patient denied any history of chronic kidney disease, patient may have acute renal failure from prerenal azotemia from acute GI bleed. 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 -Continued nicotine use: Counseling was provided for above-mentioned chronic medical problems patient will be resumed on appropriate home medications.
[2019-11-12 17:29] LABS: Glucose,Whole Blood 138 mg/dL (75-99)
[2019-11-12] MEDS: HEPARIN SODIUM,PORCINE 5,000 UNIT/ML 1 ML VIAL SQ SCH (17:34)
--- NOTE | 2019-11-12 18:59 | P.PN ---
Subjective Progress Note Date: 11/12/19 Principal diagnosis: GI bleed; status post EGD/colonoscopy Duodenal ulcer/ischemic colitis 10/30/2017 patient seen in follow-up in the intensive care unit; patient's family is at bedside and had multiple questions which were all addressed to her sa pjfaction; patient is status post EGD/colonoscopy which revealed a duodenal ulcer, that was not actively bleeding with a large anterior and clot in the second portion of the duodenum. Colonoscopy revealed ischemic colitis in the left colon with biopsies taken. However the procedure had to be aborted related to poor prep. Lab review shows hemoglobin is 6.8, patient has had 2 units of blood already, and he is receiving an additional unit of blood this morning. Hemodynamically patient is stable, receiving IV fluids, with 0.9 normal saline at a rate of 100 ML per hour. He remains on high flow oxygen, at 10 L and his pulse ox is 92- 93%. Complaints of chest pain, patient does have exertional dyspnea, today's chest x-ray has been reviewed, showing bibasilar atelectasis and bilateral pleur al effusions. Patient is still getting IV fluids at a rate of 100, we will turn it was down, and give the patient a dose of IV Lasix, today's labs have been reviewed, showing white blood cell count 8.3, hemoglobin of 6.8, platelet count 293, sodium was 143, potassium was 5.4, chloride was 117, CO2 was 22, BUN was 53, creatinine was 2.94. No report of any further rectal bleeding; we will continue to monitor H&H closely and transfuse when needed 10/31/2019 patient is seen and evaluatedin follow-up in the intensive care unit. He is awake and alert in no acute distress. His hemoglobin was 6.6 earlier this morning. He is receiving his fourth unit of packed red blood cells in total this admission. He did undergo an EGD this morning and was found to have a large adherent clot along the duodenal sweep which was removed. A deep ulceration with active bleeding was visible. Epinephrine and Endo Clip placement obtained good hemostasis. There are large clots in the stomach. NG tube remains in place. He remains on Protonix 40 mg every 12 hours. Surgical consult was placed. He is currently afebrile. Hemodynamically stable. He is on 10 L high flow nasal cannula to maintain O2 saturations in the mid 90s. 0.9 normal saline at 50 MLS per hour. Remains on Unasyn. Chest x-ray shows some evidence of fluid volume overload and small effusions. White count 5.1. Creatinine 2.77. patient's family is at bedside and on inquiring about transferring the patient to [place]; did advise and son that patient is unstable at this time and family will have to discuss this with case management on Saturday11/01/2019 Patient is seen and evaluated in the room at bedside; patient has been having profuse rectal bleeding; patient underwent EGD which showed bleeding duodenal ulcer, Endo Clip was applied; patient had an episode of dark stools during the night but started bleeding profusely this afternoon; stat H&H is done which shows hemoglobin at 6.0; patient has been started on IV Levophed to maintain blood pressure; patient was evaluated by GI, ICU team and surgery and was recommended transferred to a tertiary care center; [facility] was consulted and transfer arrangements to [facility] surgical ICU were made; patient was deemed unstable for transfer and is taken to OR by the surgical team 11/10/2019 in follow-up on the regular medical floor. He is awake and alert in no acute distress. He denies any worsening shortness of breath, cough or congestion. He is maintaining O2 saturations 90% on 4 L/m per nasal cannula. He did have an episode of atrial fibrillation with a rapid ventricular response this morning. Currently stable with a rate in the 70s. Cardiology is on the case. No current signs of active bleeding. Hemoglobin 8.6. He is status post 9 units of packed red blood cells and 1 unit of fresh frozen plasma this admission. Blood cultures reveal no growth. White count 6.6. Creatinine 2.20. 11/11/2019 Patient is seen and evaluated in room at bedside; patient denies any specific complaints Vital signs are reviewed and stable Lab work shows a stable hemoglobin of 8.3 Patient is being followed by surgery for bleeding duodenal ulcer, status post exploratory laparotomy with duodenectomy and oversewing of bleeding duodenal ulcer/ acute blood loss anemia; we are presently continuing to monitor H&H closely; IVELISSE drain remains in place; patient has been started on full liquid diet and will be advanced if hemoglobins remained stable in next 24 hours 11/12/2019 The patient was seen and examined resting comfortably in bed. Patient has apparently been having episodes of PAF with RVR starting around midnight through this morning. Currently in sinus rhythm. Again the patient is symptomatic with these episodes with some dizziness as well as shortness of breath and palpitations. The patient Cytomel was discontinued due to a TSH of less than 0.15. Free T4 was normal. He remains on levothyroxine 125 g daily. Currently on metoprolol tartrate 50 mg by mouth twice a day and amiodarone 200 mg by mouth twice a day. I did speak to Dr. Plascencia this morning who would favor of not anticoagulating the patient as recurrent GI bleed could be detrimental. Laboratory values from this morning revealed. Hemoglobin is stable at 8.8. BUN is 39 and creatinine is 2.48 which is up from 2.36 yesterday. Objective - Vital Signs Vital signs: Vital Signs Temp 98.4 F 11/12/19 13:26 Pulse 84 11/12/19 16:00 Resp 18 11/12/19 16:00 BP 113/50 11/12/19 13:26 Pulse Ox 94 L 11/12/19 13:26 Intake & Output 11/11/19 11/12/19 11/12/19 18:59 06:59 18:59 Intake Total 310 330 540 Output Total 728 541 2691 Balance -460 -170 -570 Weight 98.5 kg Intake: IV 310 130 Fat Emulsion 20% 250 ml @ 0 20.833 mls/hr IV DAILY@ 1400 [facility] Rx#:[id number] Fluconazole in NaCl,Iso- 50 Osm 100 mg In Saline 1 50ml.bag @ 50 mls/hr IVPB DAILY [facility] Rx#:[id number] Piperacillin-Tazobactam 3 100 100 .375 gm In Sodium Chloride 0.9% 100 ml @ 25 mls/hr IVPB Q8H [facility] Rx#: [id number] Sodium Chloride 0.9% 1, 160 30 000 ml @ 20 mls/hr IV . Q24H [facility] Rx#:[id number] Intake, IV Titration 0 Amount Potassium Chloride 20 meq 0 In Water For Injection 1 100ml.bag @ 50 mls/hr IVPB Q2H [facility] Rx#: [id number] Sodium Phosphate 15 mmol 0 Magnesium Sulfate gm 1 gm Calcium Gluconate 1 gm Potassium Chloride 20 meq In Amino Acid 5%-D15w 1, 000 ml @ 90 mls/hr IV .BY DURATION [facility] Rx#: [id number] Oral 200 540 Output: Drainage 120 160 Right Lower Abdomen 120 160 Urine 650 500 950 Uretheral (Cohen) 500 Other: Voiding Method Indwelling Catheter Indwelling Catheter Indwelling Catheter # Voids 0 ABP, PAP, CO, CI - Last Documented Arterial Blood Pressure 168/55 - Exam PHYSICAL EXAMINATION: GENERAL: The patient is alert and oriented x3, not in any acute distress. Well developed, well nourished. HEENT: Pupils are round and equally reacting to light. EOMI. No scleral icterus. No conjunctival pallor. Normocephalic, atraumatic. No pharyngeal erythema. No thyromegaly. CARDIOVASCULAR: S1 and S2 present. No murmurs, rubs, or gallops. PULMONARY: Chest is clear to auscultation, no wheezing or crackles. ABDOMEN: Soft, nontender, nondistended, normoactive bowel sounds. No palpable organomegaly. MUSCULOSKELETAL: No joint swelling or deformity. EXTREMITIES: No cyanosis, clubbing, or pedal edema. NEUROLOGICAL: Gross neurological examination did not reveal any focal deficits. SKIN: No rashes. - Labs CBC & Chem 7: 11/12/19 09:11 11/12/19 09:11 Labs: Abnormal Lab Results - Last 24 Hours (Table) 11/11/19 11/12/19 11/12/19 Range/Units 20:20 07:18 09:11 RBC (4.30-5.90) m/uL Hgb (13.0-17.5) gm/dL Hct (39.0-53.0) % RDW (11.5-15.5) % Lymphocytes # (1.0-4.8) k/uL BUN 39 H (9-20) mg/dL Creatinine 2.48 H (0.66-1.25) mg/dL Glucose 151 H (74-99) mg/dL POC Glucose (mg/dL) 251 H 160 H (75-99) mg/dL 11/12/19 11/12/19 Range/Units 09:11 11:41 RBC 2.96 L (4.30-5.90) m/uL Hgb 8.8 L (13.0-17.5) gm/dL Hct 27.5 L (39.0-53.0) % RDW 15.6 H (11.5-15.5) % Lymphocytes # 0.8 L (1.0-4.8) k/uL BUN (9-20) mg/dL Creatinine (0.66-1.25) mg/dL Glucose (74-99) mg/dL POC Glucose (mg/dL) 231 H (75-99) mg/dL Microbiology - Last 24 Hours (Table) 11/07/19 18:22 Blood Culture - Preliminary Blood No Growth after 96 hours 11/07/19 17:59 Blood Culture - Preliminary Blood No Growth after 96 hours Assessment and Plan Assessment: Acute blood loss anemia - Patient is status post EGD/colonoscopy which revealed duodenal ulcer without any active bleeding with the large interior clot in the second portion of duodenum; colonoscopy revealed ischemic colitis and left colon; by this is done and results are pending patient will need upper GI endoscopy gastric body was consulted will transfuse him 2 units of blood and patient is bit hypotensive continue with IV fluids at 100 mL/h hold off on antidepressant medications except for metoprolol. Patient is presently on Protonix IV twice a day -Current artery disease continue with metoprolol hold off rest of the blood pressure medications and aspirin because of GI bleed -Hypertension patient is presently hypotensive secondary to GI bleed holding off on lisinopril, hydralazine. -Renal failure: I do not have any previous creatinine available patient denied any history of chronic kidney disease, patient may have acute renal failure from prerenal azotemia from acute GI bleed. 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 -Continued nicotine use: Counseling was provided for above-mentioned chronic medical problems patient will be resumed on appropriate home medications.
[2019-11-12] MEDS: ATORVASTATIN 10 MG TAB PO SCH (20:56)
[2019-11-12 21:08] LABS: Glucose,Whole Blood 151 mg/dL (75-99)
--- NOTE | 2019-11-12 22:26 | XR ---
EXAMINATION TYPE: XR chest 1V portable DATE OF EXAM: 11/12/2019 COMPARISON: 11/07/2019 HISTORY: Extubation. Short of breath TECHNIQUE: Single view FINDINGS: There is right jugular catheter with the tip in the superior vena cava. There is some pulmo nary vascular congestion. There is blunting of the costophrenic angles. There is elevated right diaph ragm. IMPRESSION: Mild congestive heart failure. Right basilar atelectasis. Bilateral lower lobe pulmonary infiltrates and atelectasis slightly worse than last exam. Heart failure worse than last exam.
[2019-11-12 22:53] LABS: Basophils % (A) 0 %; Eosinophils # (A) 0.2 k/uL (0-0.7); Eosinophils % (A) 3 %; HCT 23.1 % (39.0-53.0); HGB 7.5 gm/dL (13.0-17.5); Lymphocytes # (A) 0.8 k/uL (1.0-4.8); Lymphocytes % (A) 13 %; MCH 29.3 pg (25.0-35.0); MCHC 32.4 g/dL (31.0-37.0); MCV 90.5 fL (80.0-100.0); Mean Platelet Volume 8.2; Monocytes # (A) 0.3 k/uL (0-1.0); Monocytes % (A) 5 %; Neutrophils # (A) 4.7 k/uL (1.3-7.7); Neutrophils % (A) 77 %; Platelet Count 166 k/uL (150-450); RBC 2.56 m/uL (4.30-5.90); RDW 15.6 % (11.5-15.5); WBC 6.2 k/uL (3.8-10.6)
[2019-11-12 23:01] LABS: Albumin 2.4 g/dL (3.5-5.0); Calcium 8.2 mg/dL (8.4-10.2); Potassium 4.2 mmol/L (3.5-5.1); Total Bilirubin 0.5 mg/dL (0.2-1.3); Total Protein 4.8 g/dL (6.3-8.2)
[2019-11-13] MEDS: HEPARIN SODIUM,PORCINE 5,000 UNIT/ML 1 ML VIAL SQ SCH ×2 (05:43→10:12)
[2019-11-13] MEDS: PIPERACILLIN-TAZOBACTAM 3.375 GM in SODIUM CHLORIDE 0.9% 100 ML IVPB SCH ×3 (05:46→21:07)
[2019-11-13 06:14] LABS: Glucose,Whole Blood 157 mg/dL (75-99)
[2019-11-13] MEDS: LEVOTHYROXINE 125 MCG TAB PO SCH (06:41)
[2019-11-13] MEDS: INSULIN ASPART (NovoLOG) 100 UNIT/ML VIAL SQ SCH ×4 (06:41→21:11)
[2019-11-13 06:47] LABS: Basophils % (A) 1 %; Eosinophils # (A) 0.2 k/uL (0-0.7); Eosinophils % (A) 3 %; HCT 23.1 % (39.0-53.0); HGB 7.3 gm/dL (13.0-17.5); Lymphocytes # (A) 0.7 k/uL (1.0-4.8); Lymphocytes % (A) 12 %; MCH 28.8 pg (25.0-35.0); MCHC 31.9 g/dL (31.0-37.0); MCV 90.3 fL (80.0-100.0); Mean Platelet Volume 8.3; Monocytes # (A) 0.3 k/uL (0-1.0); Monocytes % (A) 5 %; Neutrophils # (A) 4.3 k/uL (1.3-7.7); Neutrophils % (A) 77 %; Platelet Count 167 k/uL (150-450); RBC 2.55 m/uL (4.30-5.90); RDW 15.4 % (11.5-15.5); WBC 5.5 k/uL (3.8-10.6)
[2019-11-13 07:01] LABS: Calcium 8.3 mg/dL (8.4-10.2); Potassium 4.4 mmol/L (3.5-5.1)
[2019-11-13] MEDS: SODIUM CHLORIDE 0.9% 1,000 ML IV SCH (09:00)
[2019-11-13] MEDS: BUDESONIDE 1 MG/2 ML NEBU INHALATION SCH ×2 (09:30→21:12)
[2019-11-13] MEDS: FORMOTEROL FUMARATE 20 MCG/2 ML NEBU INHALATION SCH ×2 (09:30→21:12)
[2019-11-13] MEDS: IPRATROPIUM-ALBUTEROL 3 ML NEB INHALATION SCH ×4 (09:30→21:12)
[2019-11-13] MEDS: LIDOCAINE 5% PATCH TOPICAL SCH (09:49)
[2019-11-13] MEDS: LINAGLIPTIN 5 MG TABLET PO SCH (09:53)
[2019-11-13] MEDS: PANTOPRAZOLE 40 MG/10 ML VIAL IV SCH ×2 (09:53→21:10)
[2019-11-13] MEDS: hydrALAZINE HCL 50 MG TAB PO SCH ×3 (09:53→21:10)
[2019-11-13] MEDS: AMIODARONE 200 MG TAB PO SCH ×2 (09:53→21:10)
[2019-11-13] MEDS: ACETAMINOPHEN TAB 325 MG TAB PO PRN (09:54)
[2019-11-13] MEDS: PREGABALIN 50 MG CAP PO SCH ×2 (09:54→21:10)
[2019-11-13] MEDS: FLUCONAZOLE 100 MG TAB PO SCH (09:54)
[2019-11-13] MEDS: amLODIPine 10 MG TAB PO SCH (09:54)
[2019-11-13] MEDS: METOPROLOL TARTRATE 50 MG TAB PO SCH ×3 (09:54→21:11)
[2019-11-13] MEDS: NICOTINE 14MG/24HR PATCH TRANSDERM SCH (09:55)
[2019-11-13 11:25] LABS: Glucose,Whole Blood 172 mg/dL (75-99)
--- NOTE | 2019-11-13 12:04 | P.PN ---
<Andie Vanegas Bridgette - Last Filed: 11/13/19 11:57> Subjective Progress Note Date: 11/13/19 CHIEF COMPLAINT: Bleeding duodenal ulcer HISTORY OF PRESENT ILLNESS: 78-year-old male who is status post exploratory laparotomy with duodenotomy and oversewing of bleeding duodenal ulcer. Patient examined this morning at the bedside. Patient denies abdominal pain. Denies nausea or vomiting. Patient was transferred to selective care unit overnight due to afib with RVR. Nursing reports patient is in SR this morning. Hemoglobin this morning is 7.3, down from 8.8 yesterday. No obvious bleeding noted. Patient was started back on subcu heparin yesterday. PHYSICAL EXAM: VITAL SIGNS: Reviewed GENERAL: Well-developed in no acute distress. HEENT: No sclera icterus. Extraocular movements grossly intact. Moist buccal mucosa. Head is atraumatic, normocephalic. Hears conversational speech. No nasal drainage. NECK: Supple without lymphadenopathy. CHEST: Non-labored respirations and equal bilateral excursions-on high flow cannula. CARDIOVASCULAR: Regular rate with regular rhythm. Palpable 2+ radial pulses. ABDOMEN: Soft. Nondistended. Surgical dressing clean dry intact. incision without redness or significant drainage. Aquacel silver x 3 to open areas of midline incision. MUSCULOSKELETAL: No clubbing or cyanosis NEUROLOGIC: No focal or lateralizing signs. Cranial nerves II through XII grossly intact. PSYCH: Appropriate affect. Alert and oriented to person, place and time. SKIN: Well perfused. Good skin turgor. ASSESSMENT: 1. Bleeding duodenal ulcer, status post exploratory laparotomy with duodenotomy and oversewing of bleeding duodenal ulcer 2. Acute blood loss anemia PLAN: -Cardiology following for afib with RVR. No anticoagulation at this time due to recent GI bleed. Will DC subcu heparin this morning due to decreasing hemoglobin. SCDs for DVT prophylaxis. -Continue abdominal dressing changes with Aquacel silver. Change daily. -Continue diet as tolerated -Repeat hemoglobin this afternoon at 1500 -If patient develops any signs of GI bleeding, recommend transfer to tertiary care center Nurse practitioner note has been reviewed by physician. Signing provider agrees with the documented findings, assessment, and plan of care. Objective - Vital Signs Vital signs: Vital Signs Temp 100.3 F H 11/13/19 08:00 Pulse 82 11/13/19 09:55 Resp 18 11/13/19 08:00 BP 128/60 11/13/19 08:00 Pulse Ox 96 11/13/19 08:00 Intake & Output 11/12/19 11/13/19 11/13/19 18:59 06:59 18:59 Intake Total 1080 240 Output Total 2020 017 1497 Balance -380 -700 -1210 Weight 98.5 kg 99.5 kg Intake: Oral 1080 240 Output: Drainage 160 Right Lower Abdomen 160 Urine 3318 055 5081 Uretheral (Cohen) 500 Other: Voiding Method Indwelling Catheter Indwelling Catheter Indwelling Catheter # Voids 0 ABP, PAP, CO, CI - Last Documented Arterial Blood Pressure 168/55 - Labs CBC & Chem 7: 11/13/19 06:21 11/13/19 06:21 Labs: Abnormal Lab Results - Last 24 Hours (Table) 11/12/19 11/12/19 11/12/19 Range/Units 17:24 20:58 22:14 RBC 2.56 L (4.30-5.90) m/uL Hgb 7.5 L (13.0-17.5) gm/dL Hct 23.1 L (39.0-53.0) % RDW 15.6 H (11.5-15.5) % Lymphocytes # 0.8 L (1.0-4.8) k/uL BUN (9-20) mg/dL Creatinine (0.66-1.25) mg/dL Glucose (74-99) mg/dL POC Glucose (mg/dL) 138 H 151 H (75-99) mg/dL Calcium (8.4-10.2) mg/dL Total Protein (6.3-8.2) g/dL Albumin (3.5-5.0) g/dL 11/12/19 11/13/19 11/13/19 Range/Units 22:14 06:12 06:21 RBC 2.55 L (4.30-5.90) m/uL Hgb 7.3 L (13.0-17.5) gm/dL Hct 23.1 L (39.0-53.0) % RDW (11.5-15.5) % Lymphocytes # 0.7 L (1.0-4.8) k/uL BUN 39 H (9-20) mg/dL Creatinine 2.96 H (0.66-1.25) mg/dL Glucose 152 H (74-99) mg/dL POC Glucose (mg/dL) 157 H (75-99) mg/dL Calcium 8.2 L (8.4-10.2) mg/dL Total Protein 4.8 L (6.3-8.2) g/dL Albumin 2.4 L (3.5-5.0) g/dL 11/13/19 11/13/19 Range/Units 06:21 11:21 RBC (4.30-5.90) m/uL Hgb (13.0-17.5) gm/dL Hct (39.0-53.0) % RDW (11.5-15.5) % Lymphocytes # (1.0-4.8) k/uL BUN 39 H (9-20) mg/dL Creatinine 2.84 H (0.66-1.25) mg/dL Glucose 133 H (74-99) mg/dL POC Glucose (mg/dL) 172 H (75-99) mg/dL Calcium 8.3 L (8.4-10.2) mg/dL Total Protein (6.3-8.2) g/dL Albumin (3.5-5.0) g/dL Microbiology - Last 24 Hours (Table) 11/07/19 18:22 Blood Culture - Preliminary Blood No Growth after 120 hours 11/07/19 17:59 Blood Culture - Preliminary Blood No Growth after 120 hours <Lissa Morel N - Last Filed: 11/14/19 11:26> Subjective Patient is seen. Denies abdominal pain. Tolerating diet. Agree with above. Transfer to tertiary care center with any recurrent bleed. Objective - Vital Signs Vital signs: Vital Signs Temp 98.3 F 11/14/19 08:00 Pulse 78 11/14/19 09:03 Resp 20 11/14/19 08:00 BP 124/56 11/14/19 08:00 Pulse Ox 93 L 11/14/19 08:35 Intake & Output 11/13/19 11/14/19 11/14/19 18:59 06:59 18:59 Intake Total 760 590 10 Output Total 1450 1200 Balance -690 -610 10 Weight 94.5 kg Intake: IV 40 190 10 Invasive Line 1 40 30 10 Sodium Chloride 0.9% 1, 160 000 ml @ 20 mls/hr IV . Q24H [facility] Rx#:[id number] Oral 720 400 Output: Urine 1450 1200 Other: Voiding Method Indwelling Catheter Indwelling Catheter Indwelling Catheter # Voids 0 # Bowel Movements 1 ABP, PAP, CO, CI - Last Documented Arterial Blood Pressure 168/55 - Labs CBC & Chem 7: 11/14/19 06:26 11/14/19 06:26 Labs: Abnormal Lab Results - Last 24 Hours (Table) 11/13/19 11/13/19 11/13/19 Range/Units 11:21 15:11 16:29 RBC 2.51 L (4.30-5.90) m/uL Hgb 7.4 L (13.0-17.5) gm/dL Hct 22.7 L (39.0-53.0) % Lymphocytes # (1.0-4.8) k/uL Chloride (98-107) mmol/L BUN (9-20) mg/dL Creatinine (0.66-1.25) mg/dL Glucose (74-99) mg/dL POC Glucose (mg/dL) 172 H 171 H (75-99) mg/dL 11/13/19 11/13/19 11/14/19 Range/Units 18:27 20:21 06:20 RBC (4.30-5.90) m/uL Hgb (13.0-17.5) gm/dL Hct (39.0-53.0) % Lymphocytes # (1.0-4.8) k/uL Chloride (98-107) mmol/L BUN (9-20) mg/dL Creatinine (0.66-1.25) mg/dL Glucose (74-99) mg/dL POC Glucose (mg/dL) 172 H 163 H 156 H (75-99) mg/dL 11/14/19 11/14/19 Range/Units 06:26 06:26 RBC 2.58 L (4.30-5.90) m/uL Hgb 7.5 L (13.0-17.5) gm/dL Hct 23.9 L (39.0-53.0) % Lymphocytes # 0.6 L (1.0-4.8) k/uL Chloride 108 H (98-107) mmol/L BUN 42 H (9-20) mg/dL Creatinine 2.97 H (0.66-1.25) mg/dL Glucose 147 H (74-99) mg/dL POC Glucose (mg/dL) (75-99) mg/dL Microbiology - Last 24 Hours (Table) 11/07/19 18:22 Blood Culture - Final Blood No Growth after 144 hours 11/07/19 17:59 Blood Culture - Final Blood No Growth after 144 hours
--- NOTE | 2019-11-13 13:58 | P.PN ---
Subjective Progress Note Date: 11/13/19 This is a pleasant 79-year-old gentleman who was initially admitted on 10/28/2018 for GI bleed. He's had a long and complicated hospital course with recurrent bleeding transfusion of multiple units of packed red blood cells and multiple procedures for duodenal ulcers including most recently on November 01 a duodenotomy and oversewing of bleeding duodenal ulcer by Dr. Gifford. He is currently on TPN and lipids. While in the intensive care unit the patient did have episodes of "SVT" and was treated with boluses of IV amiodarone. We were asked to see the patient in consultation today for episodes of tachycardia with heart rate in the 170s. Upon review of EKG from this morning, appears to be atrial fibrillation with rapid ventricular response however patient has had episodes of SVT on previous EKGs. As well as EKGs that showed likely atrial fibrillation with controlled ventricular response and EKGs with sinus rhythm with frequent PACs. Currently patient is maintaining sinus rhythm. He has on metoprolol 50 mg by mouth twice a day. Patient did have a 2-D echo with Doppler done this admission which showed a normal LV systolic function with an ejection fraction between 60-65% and mild tricuspid regurgitation. He is currently on levothyroxine 125 g by mouth daily, no recent TSH available. Vital signs show blood pressure to be somewhat elevated at times as high as the 180s systolic w ith a heart rate in the 60s, 70s and 80s. Patient does verbalize a history of cardiac workup 7-8 years ago at the [facility] and a right and was told he had a minor blockage in one of the arteries on the left side of his heart and was treated medically at that time. He does not follow regularly with a sociology faculty member. He has had episodes of rapid heartbeat at home that are brief in duration and occur rarely. During the time of A. fib with RVR the patient was symptomatic with some shortness of breath, lightheadedness and could feel his heart racing. 11/13/2019 Patient is seen and examined this morning, Blood pressure 147/60 with a heart rate in the 70s.White blood cell count 5.5, hemoglobin 7.3, platelet count 167. Sodium 141, potassium 4.4, BUN 39, creatinine 2.8. Objective - Vital Signs Vital signs: Vital Signs Temp 100.3 F H 11/13/19 08:00 Pulse 80 11/13/19 13:08 Resp 18 11/13/19 08:00 BP 128/60 11/13/19 08:00 Pulse Ox 96 11/13/19 12:59 Intake & Output 11/12/19 11/13/19 11/13/19 18:59 06:59 18:59 Intake Total 1080 480 Output Total 1246 895 8476 Balance -380 -700 -970 Weight 98.5 kg 99.5 kg Intake: Oral 1080 480 Output: Drainage 160 Right Lower Abdomen 160 Urine 1200 323 7257 Uretheral (Cohen) 500 Other: Voiding Method Indwelling Catheter Indwelling Catheter Indwelling Catheter # Voids 0 ABP, PAP, CO, CI - Last Documented Arterial Blood Pressure 168/55 - Exam PHYSICAL EXAMINATION: HEENT: Head is atraumatic, normocephalic. Pupils equal, round. Neck is supple. There is no elevated jugular venous pressure. HEART EXAMINATION: Heart sounds regular, S1 and S2 with a systolic murmur. CHEST EXAMINATION: Lungs are clear to auscultation. No chest wall tenderness is noted on palpation or with deep breathing. ABDOMEN: Soft, mild tenderness. Bowel sounds active. Abdominal incision noted. EXTREMITIES: 2+ peripheral pulses with evidence of mild right lower extremity edema and no calf tenderness noted. NEUROLOGIC patient is awake, alert and oriented x3. - Labs CBC & Chem 7: 11/13/19 06:21 11/13/19 06:21 Labs: Abnormal Lab Results - Last 24 Hours (Table) 11/12/19 11/12/19 11/12/19 Range/Units 17:24 20:58 22:14 RBC 2.56 L (4.30-5.90) m/uL Hgb 7.5 L (13.0-17.5) gm/dL Hct 23.1 L (39.0-53.0) % RDW 15.6 H (11.5-15.5) % Lymphocytes # 0.8 L (1.0-4.8) k/uL BUN (9-20) mg/dL Creatinine (0.66-1.25) mg/dL Glucose (74-99) mg/dL POC Glucose (mg/dL) 138 H 151 H (75-99) mg/dL Calcium (8.4-10.2) mg/dL Total Protein (6.3-8.2) g/dL Albumin (3.5-5.0) g/dL 11/12/19 11/13/19 11/13/19 Range/Units 22:14 06:12 06:21 RBC 2.55 L (4.30-5.90) m/uL Hgb 7.3 L (13.0-17.5) gm/dL Hct 23.1 L (39.0-53.0) % RDW (11.5-15.5) % Lymphocytes # 0.7 L (1.0-4.8) k/uL BUN 39 H (9-20) mg/dL Creatinine 2.96 H (0.66-1.25) mg/dL Glucose 152 H (74-99) mg/dL POC Glucose (mg/dL) 157 H (75-99) mg/dL Calcium 8.2 L (8.4-10.2) mg/dL Total Protein 4.8 L (6.3-8.2) g/dL Albumin 2.4 L (3.5-5.0) g/dL 11/13/19 11/13/19 Range/Units 06:21 11:21 RBC (4.30-5.90) m/uL Hgb (13.0-17.5) gm/dL Hct (39.0-53.0) % RDW (11.5-15.5) % Lymphocytes # (1.0-4.8) k/uL BUN 39 H (9-20) mg/dL Creatinine 2.84 H (0.66-1.25) mg/dL Glucose 133 H (74-99) mg/dL POC Glucose (mg/dL) 172 H (75-99) mg/dL Calcium 8.3 L (8.4-10.2) mg/dL Total Protein (6.3-8.2) g/dL Albumin (3.5-5.0) g/dL Microbiology - Last 24 Hours (Table) 11/07/19 18:22 Blood Culture - Preliminary Blood No Growth after 120 hours 11/07/19 17:59 Blood Culture - Preliminary Blood No Growth after 120 hours Assessment and Plan Plan: Assessment: #1 paroxysmal atrial fibrillation at times with rapid ventricular response 2 GI bleed secondary to duodenal ulcer, status post exploratory laparotomy and oversewing of duodenal ulcer #3 acute blood loss anemia secondary GI bleeding #4 chronic kidney disease #5 hypothyroidism #6 hyperlipidemia #7 hypertension #8 type 2 diabetes mellitus plan we will increase the dose of beta alfredo to 50 mg one tablet by mouth 3 times a day, continue the rest of the patient's medications. He is not a candidate for anticoagulation because of the GI bleed. DNP note has been reviewed, I agree with a documented findings and plan of care. Patient was seen and examined.
[2019-11-13 15:28] LABS: HCT 22.7 % (39.0-53.0); HGB 7.4 gm/dL (13.0-17.5); Hypochromasia Slight; MCH 29.6 pg (25.0-35.0); MCHC 32.8 g/dL (31.0-37.0); MCV 90.4 fL (80.0-100.0); Mean Platelet Volume 8.3; Platelet Count 160 k/uL (150-450); RBC 2.51 m/uL (4.30-5.90); RDW 15.2 % (11.5-15.5); WBC 6.2 k/uL (3.8-10.6)
[2019-11-13 16:35] LABS: Glucose,Whole Blood 171 mg/dL (75-99)
[2019-11-13 18:48] LABS: Glucose,Whole Blood 172 mg/dL (75-99)
[2019-11-13 20:23] LABS: Glucose,Whole Blood 163 mg/dL (75-99)
[2019-11-13] MEDS: ATORVASTATIN 10 MG TAB PO SCH (21:10)
[2019-11-14] MEDS: PIPERACILLIN-TAZOBACTAM 3.375 GM in SODIUM CHLORIDE 0.9% 100 ML IVPB SCH ×3 (04:17→20:54)
[2019-11-14] MEDS: LEVOTHYROXINE 125 MCG TAB PO SCH (06:18)
[2019-11-14 06:21] LABS: Glucose,Whole Blood 156 mg/dL (75-99)
[2019-11-14] MEDS: INSULIN ASPART (NovoLOG) 100 UNIT/ML VIAL SQ SCH ×4 (06:23→20:57)
[2019-11-14 06:55] LABS: Basophils % (A) 1 %; Eosinophils # (A) 0.1 k/uL (0-0.7); Eosinophils % (A) 1 %; HCT 23.9 % (39.0-53.0); HGB 7.5 gm/dL (13.0-17.5); Hypochromasia Slight; Lymphocytes # (A) 0.6 k/uL (1.0-4.8); Lymphocytes % (A) 7 %; MCHC 31.3 g/dL (31.0-37.0); MCV 92.6 fL (80.0-100.0); Mean Platelet Volume 8.1; Monocytes # (A) 0.3 k/uL (0-1.0); Monocytes % (A) 4 %; Neutrophils # (A) 7.2 k/uL (1.3-7.7); Neutrophils % (A) 86 %; Platelet Count 180 k/uL (150-450); RBC 2.58 m/uL (4.30-5.90); RDW 15.4 % (11.5-15.5); WBC 8.3 k/uL (3.8-10.6)
[2019-11-14 07:17] LABS: Calcium 8.5 mg/dL (8.4-10.2); Potassium 4.4 mmol/L (3.5-5.1)
[2019-11-14] MEDS: LINAGLIPTIN 5 MG TABLET PO SCH (08:27)
[2019-11-14] MEDS: AMIODARONE 200 MG TAB PO SCH ×2 (08:27→20:56)
[2019-11-14] MEDS: hydrALAZINE HCL 50 MG TAB PO SCH ×3 (08:27→20:56)
[2019-11-14] MEDS: NICOTINE 14MG/24HR PATCH TRANSDERM SCH (08:28)
[2019-11-14] MEDS: PREGABALIN 50 MG CAP PO SCH ×2 (08:28→20:56)
[2019-11-14] MEDS: amLODIPine 10 MG TAB PO SCH (08:28)
[2019-11-14] MEDS: FLUCONAZOLE 100 MG TAB PO SCH (08:28)
[2019-11-14] MEDS: LIDOCAINE 5% PATCH TOPICAL SCH (08:28)
[2019-11-14] MEDS: PANTOPRAZOLE 40 MG/10 ML VIAL IV SCH ×2 (08:29→20:55)
[2019-11-14] MEDS: METOPROLOL TARTRATE 50 MG TAB PO SCH ×3 (08:29→20:56)
[2019-11-14] MEDS: IPRATROPIUM-ALBUTEROL 3 ML NEB INHALATION SCH ×4 (08:32→20:20)
[2019-11-14] MEDS: FORMOTEROL FUMARATE 20 MCG/2 ML NEBU INHALATION SCH ×2 (08:32→20:20)
[2019-11-14] MEDS: BUDESONIDE 1 MG/2 ML NEBU INHALATION SCH ×2 (08:32→20:20)
[2019-11-14] MEDS: SODIUM CHLORIDE 0.9% 1,000 ML IV SCH (09:12)
[2019-11-14 11:56] LABS: Glucose,Whole Blood 169 mg/dL (75-99)
--- NOTE | 2019-11-14 14:05 | P.PN ---
Subjective Progress Note Date: 11/14/19 CHIEF COMPLAINT: Bleeding duodenal ulcer HISTORY OF PRESENT ILLNESS: The patient is a 79-year-old male status post control of duodenal ulcer via exploratory laparotomy. No reports of abdominal pain. Hemoglobin is stable. He is currently on the bedpan. ROS: No reports of nausea and vomiting. No fevers or chills. No new chest pain. PHYSICAL EXAM: VITAL SIGNS: Reviewed CONSTITUTIONAL: Well developed and in no acute distress. EYES: Conjuctivae without sclera icterus. Extraocular movements grossly intact. HEAD, EARS, NOSE, THROAT: Moist buccal mucosa. Head is atraumatic, normocephalic. Hears conversational speech. No nasal drainage. NECK: Supple. No thyroidomegaly. RESPIRATORY: Non-labored respirations and equal bilateral excursions. CARDIOVASCULAR: Palpable 2+ radial pulses. ABDOMEN: Incisions dry and intact. Soft. No peritonitis. MUSCULOSKELETAL: No gross deformity of the lower extremities noted. No clubbing. No cyanosis. SKIN: Good skin turgor. Well perfused. NEUROLOGIC: Cranial nerves I through XII grossly intact. No focal or lateralizing signs. PSYCH: Appropriate affect. Alert and oriented to person, place and time. CLINICAL LABS: White blood cell count normal. Hemoglobin stable at 7.4-7.5. Creatinine 2.94 ASSESSMENT: 1. Acute blood loss edema due to bleeding duodenal ulcer 2. Status post multiple transfusions, 9 units 3. 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 Diabetes type 2, uncontrolled, complications diabetic nephropathy 5. Chronic atrial fibrillation PLAN: 1. Monitor hemoglobin however transfer to tertiary care unit for any new signs of bleeding 2. Avoid anticoagulant 3. Diet as tolerated Objective - Vital Signs Vital signs: Vital Signs Temp 98.3 F 11/14/19 08:00 Pulse 78 11/14/19 09:03 Resp 20 11/14/19 08:00 BP 124/56 11/14/19 08:00 Pulse Ox 93 L 11/14/19 08:35 Intake & Output 11/13/19 11/14/19 11/14/19 18:59 06:59 18:59 Intake Total 760 590 10 Output Total 1450 1200 Balance -690 -610 10 Weight 94.5 kg Intake: IV 40 190 10 Invasive Line 1 40 30 10 Sodium Chloride 0.9% 1, 160 000 ml @ 20 mls/hr IV . Q24H [facility] Rx#:[id number] Oral 720 400 Output: Urine 1450 1200 Other: Voiding Method Indwelling Catheter Indwelling Catheter Indwelling Catheter # Voids 0 # Bowel Movements 1 ABP, PAP, CO, CI - Last Documented Arterial Blood Pressure 168/55 - Labs CBC & Chem 7: 11/14/19 06:26 11/14/19 06:26 Labs: Abnormal Lab Results - Last 24 Hours (Table) 11/13/19 11/13/19 11/13/19 Range/Units 15:11 16:29 18:27 RBC 2.51 L (4.30-5.90) m/uL Hgb 7.4 L (13.0-17.5) gm/dL Hct 22.7 L (39.0-53.0) % Lymphocytes # (1.0-4.8) k/uL Chloride (98-107) mmol/L BUN (9-20) mg/dL Creatinine (0.66-1.25) mg/dL Glucose (74-99) mg/dL POC Glucose (mg/dL) 171 H 172 H (75-99) mg/dL 11/13/19 11/14/19 11/14/19 Range/Units 20:21 06:20 06:26 RBC 2.58 L (4.30-5.90) m/uL Hgb 7.5 L (13.0-17.5) gm/dL Hct 23.9 L (39.0-53.0) % Lymphocytes # 0.6 L (1.0-4.8) k/uL Chloride (98-107) mmol/L BUN (9-20) mg/dL Creatinine (0.66-1.25) mg/dL Glucose (74-99) mg/dL POC Glucose (mg/dL) 163 H 156 H (75-99) mg/dL 11/14/19 Range/Units 06:26 RBC (4.30-5.90) m/uL Hgb (13.0-17.5) gm/dL Hct (39.0-53.0) % Lymphocytes # (1.0-4.8) k/uL Chloride 108 H (98-107) mmol/L BUN 42 H (9-20) mg/dL Creatinine 2.97 H (0.66-1.25) mg/dL Glucose 147 H (74-99) mg/dL POC Glucose (mg/dL) (75-99) mg/dL Microbiology - Last 24 Hours (Table) 11/07/19 18:22 Blood Culture - Final Blood No Growth after 144 hours 11/07/19 17:59 Blood Culture - Final Blood No Growth after 144 hours Assessment and Plan (1) 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 Current Visit: Yes Status: Acute Code(s): E11.22 - TYPE 2 DIABETES MELLITUS W DIABETIC CHRONIC KIDNEY DISEASE; N18.4 - CHRONIC KIDNEY DISEASE, STAGE 4 (SEVERE) SNOMED Code(s): 743405046 (2) Diabetes type 2, uncontrolled Current Visit: Yes Status: Acute Code(s): E11.65 - TYPE 2 DIABETES MELLITUS WITH HYPERGLYCEMIA SNOMED Code(s): 742877418 (3) Hypertensive heart disease Current Visit: Yes Status: Acute Code(s): I11.9 - HYPERTENSIVE HEART DISEASE WITHOUT HEART FAILURE SNOMED Code(s): 12730464 (4) Acute blood loss anemia Current Visit: Yes Status: Acute Code(s): D62 - ACUTE POSTHEMORRHAGIC ANEMIA SNOMED Code(s): 639898933 (5) Bleeding duodenal ulcer Current Visit: Yes Status: Acute Code(s): K26.4 - CHRONIC OR UNSPECIFIED DUODENAL ULCER WITH HEMORRHAGE SNOMED Code(s): 57935918
--- NOTE | 2019-11-14 14:43 | P.PN ---
Subjective Progress Note Date: 11/14/19 Principal diagnosis: Afib RVR PROGRESS NOTE: 11/14/19 Patient currently resting in bed with no acute distress. Pt continues SR on monitor. Patient has no current complaints of chest pain, chest pressure, shortness of breath or palpitations. Patient continues with high flow O2. Cardiology will follow on a when necessary basis. PHYSICAL EXAMINATION: HEENT: Head is atraumatic, normocephalic. Pupils are equal, round. Sclerae anicteric. Conjunctivae are clear. Mucous membranes of the mouth are moist. Neck is supple. There is no jugular venous distention. No carotid bruit is heard. No thyromegaly. LUNGS: Mildly diminshed to auscultation. No wheezes, rales or rhonchi. No chest wall tenderness is noted on palpation or with deep breathing. HEART: Regular rate and rhythm without murmurs, rubs or gallops. S1 and S2 heard. ABDOMEN: Abdominal exam revealed normal bowel sounds. The abdomen was soft, non- tender, and without masses, organomegaly, or appreciable enlargement of the abdominal aorta. EXTREMITIES: Examination of the extremities revealed easily palpable radial, femoral and pedal pulses. There was no cyanosis, clubbing or edema. No calf tenderness noted. VASCULAR: Radial and dorsalis pedis pulses palpated, no evidence of clubbing. NEUROLOGIC: Patient is awake, alert and oriented x3. There were no obvious focal neurologic abnormalities. LAB DATA: FINAL IMPRESSION: 1. PAF - resolved. NOW SR, controlled rate. 2. GI bleed secondary to duodenal ulcer - improved 3. anemia secondary to acute blood loss - improved 4. hypertension 5. hyperlipidemia PLAN: Patient continues stable. Sinus rhythm on monitor heart rate 70s. BP 125/51. HGB 7.5, HCT 23.9. No anticoagulation due to history of GI bleed. Cardiology to follow along on a when necessary basis. Continue same all other medical/medication regime. Patient to follow up with Dr. Moore on at office discharge. Objective - Vital Signs Vital signs: Vital Signs Temp 97.8 F 11/14/19 12:00 Pulse 70 11/14/19 12:08 Resp 20 11/14/19 12:00 BP 125/51 11/14/19 12:00 Pulse Ox 95 11/14/19 12:00 Intake & Output 11/13/19 11/14/19 11/14/19 18:59 06:59 18:59 Intake Total 760 590 220 Output Total 1450 1200 325 Balance -690 -610 -105 Weight 94.5 kg Intake: IV 40 190 20 Invasive Line 1 40 30 20 Sodium Chloride 0.9% 1, 160 000 ml @ 20 mls/hr IV . Q24H [facility] Rx#:[id number] Oral 720 400 200 Output: Urine 1450 1200 325 Other: Voiding Method Indwelling Catheter Indwelling Catheter Indwelling Catheter # Voids 0 # Bowel Movements 1 ABP, PAP, CO, CI - Last Documented Arterial Blood Pressure 168/55 - Labs CBC & Chem 7: 11/14/19 06:26 11/14/19 06:26 Labs: Abnormal Lab Results - Last 24 Hours (Table) 11/13/19 11/13/19 11/13/19 Range/Units 15:11 16:29 18:27 RBC 2.51 L (4.30-5.90) m/uL Hgb 7.4 L (13.0-17.5) gm/dL Hct 22.7 L (39.0-53.0) % Lymphocytes # (1.0-4.8) k/uL Chloride (98-107) mmol/L BUN (9-20) mg/dL Creatinine (0.66-1.25) mg/dL Glucose (74-99) mg/dL POC Glucose (mg/dL) 171 H 172 H (75-99) mg/dL 11/13/19 11/14/19 11/14/19 Range/Units 20:21 06:20 06:26 RBC 2.58 L (4.30-5.90) m/uL Hgb 7.5 L (13.0-17.5) gm/dL Hct 23.9 L (39.0-53.0) % Lymphocytes # 0.6 L (1.0-4.8) k/uL Chloride (98-107) mmol/L BUN (9-20) mg/dL Creatinine (0.66-1.25) mg/dL Glucose (74-99) mg/dL POC Glucose (mg/dL) 163 H 156 H (75-99) mg/dL 11/14/19 11/14/19 Range/Units 06:26 11:44 RBC (4.30-5.90) m/uL Hgb (13.0-17.5) gm/dL Hct (39.0-53.0) % Lymphocytes # (1.0-4.8) k/uL Chloride 108 H (98-107) mmol/L BUN 42 H (9-20) mg/dL Creatinine 2.97 H (0.66-1.25) mg/dL Glucose 147 H (74-99) mg/dL POC Glucose (mg/dL) 169 H (75-99) mg/dL Microbiology - Last 24 Hours (Table) 11/07/19 18:22 Blood Culture - Final Blood No Growth after 144 hours 11/07/19 17:59 Blood Culture - Final Blood No Growth after 144 hours
[2019-11-14 17:18] LABS: Glucose,Whole Blood 156 mg/dL (75-99)
--- NOTE | 2019-11-14 17:34 | P.PN ---
Subjective Progress Note Date: 11/13/19 Principal diagnosis: GI bleed; status post EGD/colonoscopy Duodenal ulcer/ischemic colitis 10/30/2017 patient seen in follow-up in the intensive care unit; patient's family is at bedside and had multiple questions which were all addressed to her sa pjfaction; patient is status post EGD/colonoscopy which revealed a duodenal ulcer, that was not actively bleeding with a large anterior and clot in the second portion of the duodenum. Colonoscopy revealed ischemic colitis in the left colon with biopsies taken. However the procedure had to be aborted related to poor prep. Lab review shows hemoglobin is 6.8, patient has had 2 units of blood already, and he is receiving an additional unit of blood this morning. Hemodynamically patient is stable, receiving IV fluids, with 0.9 normal saline at a rate of 100 ML per hour. He remains on high flow oxygen, at 10 L and his pulse ox is 92- 93%. Complaints of chest pain, patient does have exertional dyspnea, today's chest x-ray has been reviewed, showing bibasilar atelectasis and bilateral pleur al effusions. Patient is still getting IV fluids at a rate of 100, we will turn it was down, and give the patient a dose of IV Lasix, today's labs have been reviewed, showing white blood cell count 8.3, hemoglobin of 6.8, platelet count 293, sodium was 143, potassium was 5.4, chloride was 117, CO2 was 22, BUN was 53, creatinine was 2.94. No report of any further rectal bleeding; we will continue to monitor H&H closely and transfuse when needed 10/31/2019 patient is seen and evaluatedin follow-up in the intensive care unit. He is awake and alert in no acute distress. His hemoglobin was 6.6 earlier this morning. He is receiving his fourth unit of packed red blood cells in total this admission. He did undergo an EGD this morning and was found to have a large adherent clot along the duodenal sweep which was removed. A deep ulceration with active bleeding was visible. Epinephrine and Endo Clip placement obtained good hemostasis. There are large clots in the stomach. NG tube remains in place. He remains on Protonix 40 mg every 12 hours. Surgical consult was placed. He is currently afebrile. Hemodynamically stable. He is on 10 L high flow nasal cannula to maintain O2 saturations in the mid 90s. 0.9 normal saline at 50 MLS per hour. Remains on Unasyn. Chest x-ray shows some evidence of fluid volume overload and small effusions. White count 5.1. Creatinine 2.77. patient's family is at bedside and on inquiring about transferring the patient to [place]; did advise and son that patient is unstable at this time and family will have to discuss this with case management on Saturday11/01/2019 Patient is seen and evaluated in the room at bedside; patient has been having profuse rectal bleeding; patient underwent EGD which showed bleeding duodenal ulcer, Endo Clip was applied; patient had an episode of dark stools during the night but started bleeding profusely this afternoon; stat H&H is done which shows hemoglobin at 6.0; patient has been started on IV Levophed to maintain blood pressure; patient was evaluated by GI, ICU team and surgery and was recommended transferred to a tertiary care center; [facility] was consulted and transfer arrangements to [facility] surgical ICU were made; patient was deemed unstable for transfer and is taken to OR by the surgical team 11/10/2019 in follow-up on the regular medical floor. He is awake and alert in no acute distress. He denies any worsening shortness of breath, cough or congestion. He is maintaining O2 saturations 90% on 4 L/m per nasal cannula. He did have an episode of atrial fibrillation with a rapid ventricular response this morning. Currently stable with a rate in the 70s. Cardiology is on the case. No current signs of active bleeding. Hemoglobin 8.6. He is status post 9 units of packed red blood cells and 1 unit of fresh frozen plasma this admission. Blood cultures reveal no growth. White count 6.6. Creatinine 2.20. 11/11/2019 Patient is seen and evaluated in room at bedside; patient denies any specific complaints Vital signs are reviewed and stable Lab work shows a stable hemoglobin of 8.3 Patient is being followed by surgery for bleeding duodenal ulcer, status post exploratory laparotomy with duodenectomy and oversewing of bleeding duodenal ulcer/ acute blood loss anemia; we are presently continuing to monitor H&H closely; IVELISSE drain remains in place; patient has been started on full liquid diet and will be advanced if hemoglobins remained stable in next 24 hours 11/12/2019 The patient was seen and examined resting comfortably in bed. Patient has apparently been having episodes of PAF with RVR starting around midnight through this morning. Currently in sinus rhythm. Again the patient is symptomatic with these episodes with some dizziness as well as shortness of breath and palpitations. The patient Cytomel was discontinued due to a TSH of less than 0.15. Free T4 was normal. He remains on levothyroxine 125 g daily. Currently on metoprolol tartrate 50 mg by mouth twice a day and amiodarone 200 mg by mouth twice a day. I did speak to Dr. Plascencia this morning who would favor of not anticoagulating the patient as recurrent GI bleed could be detrimental. Laboratory values from this morning revealed. Hemoglobin is stable at 8.8. BUN is 39 and creatinine is 2.48 which is up from 2.36 yesterday. 11/13/2019 Patient is seen and examined in selective care unit this morning, patient is transferred to selective care for A. fib with RVR; in normal sinus rhythm normal Blood pressure 147/60 with a heart rate in the 70s. White blood cell count 5.5, hemoglobin 7.3, platelet count 167. Sodium 141, potassium 4.4, BUN 39, creatinine 2.8. Cardiology has increased the dose of beta alfredo to 50 mg one tablet by mouth 3 times a day, continue the rest of the patient's medications. He is not a candidate for anticoagulation because of the GI bleed. Objective - Vital Signs Vital signs: Vital Signs Temp 99.1 F 11/13/19 11:29 Pulse 80 11/13/19 13:08 Resp 18 11/13/19 12:00 BP 111/53 11/13/19 11:29 Pulse Ox 96 11/13/19 12:59 Intake & Output 11/12/19 11/13/19 11/13/19 18:59 06:59 18:59 Intake Total 1080 510 Output Total 6404 124 8423 Balance -380 -700 -940 Weight 98.5 kg 99.5 kg Intake: IV 30 Invasive Line 1 30 Oral 1080 480 Output: Drainage 160 Right Lower Abdomen 160 Urine 0261 745 9251 Uretheral (Cohen) 500 Other: Voiding Method Indwelling Catheter Indwelling Catheter Indwelling Catheter # Voids 0 ABP, PAP, CO, CI - Last Documented Arterial Blood Pressure 168/55 - Exam PHYSICAL EXAMINATION: GENERAL: The patient is alert and oriented x3, not in any acute distress. Well developed, well nourished. HEENT: Pupils are round and equally reacting to light. EOMI. No scleral icterus. No conjunctival pallor. Normocephalic, atraumatic. No pharyngeal erythema. No thyromegaly. CARDIOVASCULAR: S1 and S2 present. No murmurs, rubs, or gallops. PULMONARY: Chest is clear to auscultation, no wheezing or crackles. ABDOMEN: Soft, nontender, nondistended, normoactive bowel sounds. No palpable organomegaly. MUSCULOSKELETAL: No joint swelling or deformity. EXTREMITIES: No cyanosis, clubbing, or pedal edema. NEUROLOGICAL: Gross neurological examination did not reveal any focal deficits. SKIN: No rashes. - Labs CBC & Chem 7: 11/14/19 06:26 11/14/19 06:26 Labs: Abnormal Lab Results - Last 24 Hours (Table) 11/12/19 11/12/19 11/12/19 Range/Units 17:24 20:58 22:14 RBC 2.56 L (4.30-5.90) m/uL Hgb 7.5 L (13.0-17.5) gm/dL Hct 23.1 L (39.0-53.0) % RDW 15.6 H (11.5-15.5) % Lymphocytes # 0.8 L (1.0-4.8) k/uL BUN (9-20) mg/dL Creatinine (0.66-1.25) mg/dL Glucose (74-99) mg/dL POC Glucose (mg/dL) 138 H 151 H (75-99) mg/dL Calcium (8.4-10.2) mg/dL Total Protein (6.3-8.2) g/dL Albumin (3.5-5.0) g/dL 11/12/19 11/13/19 11/13/19 Range/Units 22:14 06:12 06:21 RBC 2.55 L (4.30-5.90) m/uL Hgb 7.3 L (13.0-17.5) gm/dL Hct 23.1 L (39.0-53.0) % RDW (11.5-15.5) % Lymphocytes # 0.7 L (1.0-4.8) k/uL BUN 39 H (9-20) mg/dL Creatinine 2.96 H (0.66-1.25) mg/dL Glucose 152 H (74-99) mg/dL POC Glucose (mg/dL) 157 H (75-99) mg/dL Calcium 8.2 L (8.4-10.2) mg/dL Total Protein 4.8 L (6.3-8.2) g/dL Albumin 2.4 L (3.5-5.0) g/dL 11/13/19 11/13/19 Range/Units 06:21 11:21 RBC (4.30-5.90) m/uL Hgb (13.0-17.5) gm/dL Hct (39.0-53.0) % RDW (11.5-15.5) % Lymphocytes # (1.0-4.8) k/uL BUN 39 H (9-20) mg/dL Creatinine 2.84 H (0.66-1.25) mg/dL Glucose 133 H (74-99) mg/dL POC Glucose (mg/dL) 172 H (75-99) mg/dL Calcium 8.3 L (8.4-10.2) mg/dL Total Protein (6.3-8.2) g/dL Albumin (3.5-5.0) g/dL Microbiology - Last 24 Hours (Table) 11/07/19 18:22 Blood Culture - Preliminary Blood No Growth after 120 hours 11/07/19 17:59 Blood Culture - Preliminary Blood No Growth after 120 hours Assessment and Plan Assessment: Acute blood loss anemia - Patient is status post EGD/colonoscopy which revealed duodenal ulcer without any active bleeding with the large interior clot in the second portion of duodenum; colonoscopy revealed ischemic colitis and left colon; by this is done and results are pending patient will need upper GI endoscopy gastric body was consulted will transfuse him 2 units of blood and patient is bit hypotensive continue with IV fluids at 100 mL/h hold off on antidepressant medications except for metoprolol. Patient is presently on Protonix IV twice a day -Current artery disease continue with metoprolol hold off rest of the blood pressure medications and aspirin because of GI bleed -Hypertension patient is presently hypotensive secondary to GI bleed holding off on lisinopril, hydralazine. -Renal failure: I do not have any previous creatinine available patient denied any history of chronic kidney disease, patient may have acute renal failure from prerenal azotemia from acute GI bleed. 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 -Continued nicotine use: Counseling was provided for above-mentioned chronic medical problems patient will be resumed on appropriate home medications. Time with Patient: Greater than 30
--- NOTE | 2019-11-14 19:19 | P.PN ---
Subjective Progress Note Date: 11/14/19 Principal diagnosis: GI bleed; status post EGD/colonoscopy Duodenal ulcer/ischemic colitis 10/30/2017 patient seen in follow-up in the intensive care unit; patient's family is at bedside and had multiple questions which were all addressed to her sa pjfaction; patient is status post EGD/colonoscopy which revealed a duodenal ulcer, that was not actively bleeding with a large anterior and clot in the second portion of the duodenum. Colonoscopy revealed ischemic colitis in the left colon with biopsies taken. However the procedure had to be aborted related to poor prep. Lab review shows hemoglobin is 6.8, patient has had 2 units of blood already, and he is receiving an additional unit of blood this morning. Hemodynamically patient is stable, receiving IV fluids, with 0.9 normal saline at a rate of 100 ML per hour. He remains on high flow oxygen, at 10 L and his pulse ox is 92- 93%. Complaints of chest pain, patient does have exertional dyspnea, today's chest x-ray has been reviewed, showing bibasilar atelectasis and bilateral pleur al effusions. Patient is still getting IV fluids at a rate of 100, we will turn it was down, and give the patient a dose of IV Lasix, today's labs have been reviewed, showing white blood cell count 8.3, hemoglobin of 6.8, platelet count 293, sodium was 143, potassium was 5.4, chloride was 117, CO2 was 22, BUN was 53, creatinine was 2.94. No report of any further rectal bleeding; we will continue to monitor H&H closely and transfuse when needed 10/31/2019 patient is seen and evaluatedin follow-up in the intensive care unit. He is awake and alert in no acute distress. His hemoglobin was 6.6 earlier this morning. He is receiving his fourth unit of packed red blood cells in total this admission. He did undergo an EGD this morning and was found to have a large adherent clot along the duodenal sweep which was removed. A deep ulceration with active bleeding was visible. Epinephrine and Endo Clip placement obtained good hemostasis. There are large clots in the stomach. NG tube remains in place. He remains on Protonix 40 mg every 12 hours. Surgical consult was placed. He is currently afebrile. Hemodynamically stable. He is on 10 L high flow nasal cannula to maintain O2 saturations in the mid 90s. 0.9 normal saline at 50 MLS per hour. Remains on Unasyn. Chest x-ray shows some evidence of fluid volume overload and small effusions. White count 5.1. Creatinine 2.77. patient's family is at bedside and on inquiring about transferring the patient to [place]; did advise and son that patient is unstable at this time and family will have to discuss this with case management on Saturday11/01/2019 Patient is seen and evaluated in the room at bedside; patient has been having profuse rectal bleeding; patient underwent EGD which showed bleeding duodenal ulcer, Endo Clip was applied; patient had an episode of dark stools during the night but started bleeding profusely this afternoon; stat H&H is done which shows hemoglobin at 6.0; patient has been started on IV Levophed to maintain blood pressure; patient was evaluated by GI, ICU team and surgery and was recommended transferred to a tertiary care center; [facility] was consulted and transfer arrangements to [facility] surgical ICU were made; patient was deemed unstable for transfer and is taken to OR by the surgical team 11/10/2019 in follow-up on the regular medical floor. He is awake and alert in no acute distress. He denies any worsening shortness of breath, cough or congestion. He is maintaining O2 saturations 90% on 4 L/m per nasal cannula. He did have an episode of atrial fibrillation with a rapid ventricular response this morning. Currently stable with a rate in the 70s. Cardiology is on the case. No current signs of active bleeding. Hemoglobin 8.6. He is status post 9 units of packed red blood cells and 1 unit of fresh frozen plasma this admission. Blood cultures reveal no growth. White count 6.6. Creatinine 2.20. 11/11/2019 Patient is seen and evaluated in room at bedside; patient denies any specific complaints Vital signs are reviewed and stable Lab work shows a stable hemoglobin of 8.3 Patient is being followed by surgery for bleeding duodenal ulcer, status post exploratory laparotomy with duodenectomy and oversewing of bleeding duodenal ulcer/ acute blood loss anemia; we are presently continuing to monitor H&H closely; IVELISSE drain remains in place; patient has been started on full liquid diet and will be advanced if hemoglobins remained stable in next 24 hours 11/12/2019 The patient was seen and examined resting comfortably in bed. Patient has apparently been having episodes of PAF with RVR starting around midnight through this morning. Currently in sinus rhythm. Again the patient is symptomatic with these episodes with some dizziness as well as shortness of breath and palpitations. The patient Cytomel was discontinued due to a TSH of less than 0.15. Free T4 was normal. He remains on levothyroxine 125 g daily. Currently on metoprolol tartrate 50 mg by mouth twice a day and amiodarone 200 mg by mouth twice a day. I did speak to Dr. Plascencia this morning who would favor of not anticoagulating the patient as recurrent GI bleed could be detrimental. Laboratory values from this morning revealed. Hemoglobin is stable at 8.8. BUN is 39 and creatinine is 2.48 which is up from 2.36 yesterday. 11/13/2019 Patient is seen and examined in selective care unit this morning, patient is transferred to selective care for A. fib with RVR; in normal sinus rhythm normal Blood pressure 147/60 with a heart rate in the 70s. White blood cell count 5.5, hemoglobin 7.3, platelet count 167. Sodium 141, potassium 4.4, BUN 39, creatinine 2.8. Cardiology has increased the dose of beta alfredo to 50 mg one tablet by mouth 3 times a day, continue the rest of the patient's medications. He is not a candidate for anticoagulation because of the GI bleed. 11/14/2019 Patient is seen and evaluated in selective care unit sitting up in bed; voices no specific complaints vital signs reveal temperature of 97.6, pulse 67, respiration 20 and blood pr essure 140/78 with SpO2 of 91% on high flow nasal cannula oxygen of 60 L Lab review shows a hemoglobin of 7.5, an uptrending BUN/creatinine of 42/2.97; we will consult nephrology for further evaluation cardiology is following and recommending to continue current medications Patient is being seen by surgery and is recommended to be monitored closely and plan is to transfer to tertiary care center if hemoglobin continues to drop; diet will be advanced as tolerated; no anticoagulation therapy Objective - Vital Signs Vital signs: Vital Signs Temp 97.7 F 11/14/19 15:37 Pulse 76 11/14/19 16:35 Resp 20 11/14/19 15:41 BP 140/48 11/14/19 15:37 Pulse Ox 91 L 11/14/19 15:37 Intake & Output 11/13/19 11/14/19 11/14/19 18:59 06:59 18:59 Intake Total 760 590 230 Output Total 1450 1200 325 Balance -690 -610 -95 Weight 94.5 kg Intake: IV 40 190 30 Invasive Line 1 40 30 30 Sodium Chloride 0.9% 1, 160 000 ml @ 20 mls/hr IV . Q24H TAY Rx#:[id number] Oral 720 400 200 Output: Urine 1450 1200 325 Other: Voiding Method Indwelling Catheter Indwelling Catheter Indwelling Catheter # Voids 0 # Bowel Movements 1 ABP, PAP, CO, CI - Last Documented Arterial Blood Pressure 168/55 - Exam PHYSICAL EXAMINATION: GENERAL: The patient is alert and oriented x3, not in any acute distress. Well developed, well nourished. HEENT: Pupils are round and equally reacting to light. EOMI. No scleral icterus. No conjunctival pallor. Normocephalic, atraumatic. No pharyngeal erythema. No thyromegaly. CARDIOVASCULAR: S1 and S2 present. No murmurs, rubs, or gallops. PULMONARY: Chest is clear to auscultation, no wheezing or crackles. ABDOMEN: Soft, nontender, nondistended, normoactive bowel sounds. No palpable organomegaly. MUSCULOSKELETAL: No joint swelling or deformity. EXTREMITIES: No cyanosis, clubbing, or pedal edema. NEUROLOGICAL: Gross neurological examination did not reveal any focal deficits. SKIN: No rashes. - Labs CBC & Chem 7: 11/14/19 06:26 11/14/19 06:26 Labs: Abnormal Lab Results - Last 24 Hours (Table) 11/13/19 11/13/19 11/14/19 Range/Units 18:27 20:21 06:20 RBC (4.30-5.90) m/uL Hgb (13.0-17.5) gm/dL Hct (39.0-53.0) % Lymphocytes # (1.0-4.8) k/uL Chloride (98-107) mmol/L BUN (9-20) mg/dL Creatinine (0.66-1.25) mg/dL Glucose (74-99) mg/dL POC Glucose (mg/dL) 172 H 163 H 156 H (75-99) mg/dL 11/14/19 11/14/1911/14/19 Range/Units 06:26 06:26 11:44 RBC 2.58 L (4.30-5.90) m/uL Hgb 7.5 L (13.0-17.5) gm/dL Hct 23.9 L (39.0-53.0) % Lymphocytes # 0.6 L (1.0-4.8) k/uL Chloride 108 H (98-107) mmol/L BUN 42 H (9-20) mg/dL Creatinine 2.97 H (0.66-1.25) mg/dL Glucose 147 H (74-99) mg/dL POC Glucose (mg/dL) 169 H (75-99) mg/dL 11/14/19 Range/Units 17:06 RBC (4.30-5.90) m/uL Hgb (13.0-17.5) gm/dL Hct (39.0-53.0) % Lymphocytes # (1.0-4.8) k/uL Chloride (98-107) mmol/L BUN (9-20) mg/dL Creatinine (0.66-1.25) mg/dL Glucose (74-99) mg/dL POC Glucose (mg/dL) 156 H (75-99) mg/dL Microbiology - Last 24 Hours (Table) 11/07/19 18:22 Blood Culture - Final Blood No Growth after 144 hours 11/07/19 17:59 Blood Culture - Final Blood No Growth after 144 hours Assessment and Plan Assessment: Acute blood loss anemia - Patient is status post EGD/colonoscopy which revealed duodenal ulcer without any active bleeding with the large interior clot in the second portion of duodenum; colonoscopy revealed ischemic colitis and left colon; by this is done and results are pending patient will need upper GI endoscopy gastric body was consulted will transfuse him 2 units of blood and patient is bit hypotensive continue with IV fluids at 100 mL/h hold off on antidepressant medications except for metoprolol. Patient is presently on Protonix IV twice a day -Current artery disease continue with metoprolol hold off rest of the blood pressure medications and aspirin because of GI bleed -Hypertension patient is presently hypotensive secondary to GI bleed holding off on lisinopril, hydralazine. -Renal failure: I do not have any previous creatinine available patient denied any history of chronic kidney disease, patient may have acute renal failure from prerenal azotemia from acute GI bleed. 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 -Continued nicotine use: Counseling was provided for above-mentioned chronic medical problems patient will be resumed on appropriate home medications. Time with Patient: Greater than 30
[2019-11-14 20:27] LABS: Glucose,Whole Blood 178 mg/dL (75-99)
[2019-11-14] MEDS: ATORVASTATIN 10 MG TAB PO SCH (20:56)
[2019-11-15] MEDS: PIPERACILLIN-TAZOBACTAM 3.375 GM in SODIUM CHLORIDE 0.9% 100 ML IVPB SCH ×3 (04:36→21:00)
[2019-11-15] MEDS: LEVOTHYROXINE 125 MCG TAB PO SCH (05:45)
[2019-11-15 06:59] LABS: Glucose,Whole Blood 118 mg/dL (75-99)
[2019-11-15] MEDS: INSULIN ASPART (NovoLOG) 100 UNIT/ML VIAL SQ SCH ×4 (07:03→21:01)
[2019-11-15 07:15] LABS: Basophils % (A) 0 %; Eosinophils # (A) 0.1 k/uL (0-0.7); Eosinophils % (A) 1 %; HCT 22.2 % (39.0-53.0); HGB 7.3 gm/dL (13.0-17.5); Lymphocytes # (A) 0.7 k/uL (1.0-4.8); Lymphocytes % (A) 8 %; MCH 29.6 pg (25.0-35.0); MCHC 32.7 g/dL (31.0-37.0); MCV 90.4 fL (80.0-100.0); Mean Platelet Volume 8.1; Monocytes # (A) 0.3 k/uL (0-1.0); Monocytes % (A) 3 %; Neutrophils # (A) 7.5 k/uL (1.3-7.7); Neutrophils % (A) 87 %; Platelet Count 189 k/uL (150-450); RBC 2.46 m/uL (4.30-5.90); RDW 15.4 % (11.5-15.5); WBC 8.7 k/uL (3.8-10.6)
[2019-11-15 07:43] LABS: Calcium 8.4 mg/dL (8.4-10.2); Potassium 3.9 mmol/L (3.5-5.1)
[2019-11-15] MEDS: BUDESONIDE 1 MG/2 ML NEBU INHALATION SCH ×2 (07:43→16:57)
[2019-11-15] MEDS: IPRATROPIUM-ALBUTEROL 3 ML NEB INHALATION SCH ×4 (07:43→21:32)
[2019-11-15] MEDS: FORMOTEROL FUMARATE 20 MCG/2 ML NEBU INHALATION SCH ×2 (07:43→16:58)
[2019-11-15] MEDS: LIDOCAINE 5% PATCH TOPICAL SCH (09:07)
[2019-11-15] MEDS: AMIODARONE 200 MG TAB PO SCH ×2 (09:42→20:46)
[2019-11-15] MEDS: PREGABALIN 50 MG CAP PO SCH ×2 (09:42→20:46)
[2019-11-15] MEDS: SODIUM CHLORIDE 0.9% 1,000 ML IV SCH (09:42)
[2019-11-15] MEDS: METOPROLOL TARTRATE 50 MG TAB PO SCH ×3 (09:42→23:50)
[2019-11-15] MEDS: amLODIPine 10 MG TAB PO SCH (09:42)
[2019-11-15] MEDS: hydrALAZINE HCL 50 MG TAB PO SCH ×3 (09:42→23:51)
[2019-11-15] MEDS: LINAGLIPTIN 5 MG TABLET PO SCH (09:42)
[2019-11-15] MEDS: FLUCONAZOLE 100 MG TAB PO SCH (09:42)
[2019-11-15] MEDS: NICOTINE 14MG/24HR PATCH TRANSDERM SCH (09:43)
[2019-11-15] MEDS: PANTOPRAZOLE 40 MG/10 ML VIAL IV SCH ×2 (09:43→20:46)
[2019-11-15] MEDS ORDERED: FUROSEMIDE 10 MG/ML 4 ML VIAL IV STA (10:25)
--- NOTE | 2019-11-15 10:26 | P.NPCON ---
History of Present Illness - Reason for Consult acute renal failure - History of Present Illness Reason for consultation: Acute kidney injury Patient is a 79-year-old male seen in renal consultation for acute kidney injury. Patient was admitted at this facility on 10/28/2019. At that time his creatinine was 2.4 and it did come down to 2.16 this admission on November 08. However his been gradually getting worse the last few days and is up at 3.7 today. Unknown baseline renal function. 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 Patient presented to the hospital initially due to GI bleed. He was having black stools. Patient has received a total of 9 units of blood transfusion this admission. Patient underwent exploratory laparotomy with duodenotomy and oversewing of bleeding duodenal ulcer on November 01. He is currently tolerating oral intake. Patient was intubated for about 5 days. He is currently on high flow nasal cannula with 45% FiO2. He also wanted A. fib with RVR this admission and is currently maintained on Lopressor and amiodarone. Heart rate is controlled. Hemodynamically he is stable. He has a Cohen catheter in place. Urine output 2.6 L in the last 24 hours. Denies chest pain. He does admit to dyspnea. Patient's last chest x-ray from November 12 was aggressively fluid overload. No edema in his lower extremities. Hemoglobin 7.3. No active bleeding. Oral intake has been fair. Patient does have history of diabetes mellitus. Vital signs are stable. General: The patient appeared well nourished and normally developed. HEENT: Head exam is unremarkable. Neck is without jugular venous distension. LUNGS: Breath sounds decreased. HEART: Rate and Rhythm are regular. First and second heart sounds normal. No murmurs, rubs or gallops. ABDOMEN: Abdominal exam reveals normal bowel sounds. Non-tender and non- distended. No evidence of peritonitis. EXTREMITITES: No clubbing, cyanosis, or edema. Past Medical History Past Medical History: Diabetes Mellitus, Hyperlipidemia, Hypertension, Osteoa rthritis (OA), Sleep Apnea/CPAP/BIPAP, Thyroid Disorder History of Any Multi-Drug Resistant Organisms: None Reported Past Surgical History: No Surgical Hx Reported Past Anesthesia/Blood Transfusion Reactions: No Reported Reaction Smoking Status: Current every day smoker Past Alcohol Use History: None Reported Past Drug Use History: None Reported Medications and Allergies Home Medications Medication Instructions Recorded Confirmed Type Alogliptin Benzoate [Alogliptin] 12.5 mg PO DAILY 10/28/19 10/28/19 History Ascorbic Acid/Ascorbate Sodium 500 mg PO DAILY 10/28/19 10/28/19 History [Vitamin C 250 mg Tablet Chew] Aspirin EC [Ecotrin Low Dose] 81 mg PO DAILY 10/28/19 10/28/19 History Cholecalciferol [Vitamin D3 (25 3,000 unit PO DAILY 10/28/19 10/28/19 History Mcg = 1000 Iu)] Cyclobenzaprine [Flexeril] 5 mg PO BID PRN 10/28/19 10/28/19 History Ferrous Sulfate [Feosol] 325 mg PO TID 10/28/19 10/28/19 History Levothyroxine Sodium [Synthroid] 125 mcg PO DAILY 10/28/19 10/28/19 History Lidocaine 5% Patch [Lidoderm] 1 patch TOPICAL DAILY 10/28/19 10/28/19 History Liothyronine Sodium [Cytomel] 5 mcg PO DAILY 10/28/19 10/28/19 History Lisinopril 40 mg PO DAILY 10/28/19 10/28/19 History Metoprolol Tartrate [Lopressor] 50 mg PO BID 10/28/19 10/28/19 History Multivitamins, Thera [Multivitamin 1 tab PO BID 10/28/19 10/28/19 History (formulary)] Pregabalin 50 mg PO BID 10/28/19 10/28/19 History Simvastatin [Zocor] 20 mg PO HS 10/28/19 10/28/19 History amLODIPine [Norvasc] 10 mg PO DAILY 10/28/19 10/28/19 History glipiZIDE [Glucotrol] 10 mg PO AC-TID 10/28/19 10/28/19 History hydrALAZINE HCL [Apresoline] 100 mg PO TID 10/28/19 10/28/19 History Allergies Allergy/AdvReac Type Severity Reaction Status Date / Time No Known Allergies Allergy Verified 10/28/19 07:19 Physical Exam Vitals: Vital Signs Temp Pulse Pulse Resp BP Pulse Ox 11/15/19 08:07 80 11/15/19 08:01 76 11/15/19 08:00 76 11/15/19 07:47 72 91 L 11/15/19 03:27 97.8 F 72 18 164/76 95 11/15/19 00:00 72 20 11/14/19 20:50 76 11/14/19 20:36 72 11/14/19 20:35 72 11/14/19 20:20 72 11/14/19 19:57 98.5 F 72 20 130/67 95 11/14/19 16:35 76 11/14/19 16:24 76 11/14/19 15:41 67 20 11/14/19 15:37 97.7 F 67 20 140/48 91 L 11/14/19 12:08 70 11/14/19 12:00 97.8 F 65 20 125/51 95 11/14/19 11:57 74 Intake and Output 11/14/19 11/15/19 11/15/19 22:59 06:59 14:59 Intake Total 280 1220 Output Total 325 2000 Balance -45 -780 Intake: IV 20 20 Invasive Line 1 20 20 Oral 260 1200 Output: Urine 325 2000 Other: Voiding Method Indwelling Catheter Indwelling Catheter # Voids 0 0 0 # Bowel Movements 3 2 Weight 97.5 kg Results - Lab Results Most recent lab results ABG pH 7.32 (7.35-7.45) L 11/05/19 13:06 ABG pCO2 39 mmHg (35-45) 11/05/19 13:06 ABG pO2 73 mmHg (83-108) L 11/05/19 13:06 ABG HCO3 20 mmol/L (21-25) L 11/05/19 13:06 ABG O2 Saturation 94.9 % (94-97) 11/05/19 13:06 Calcium 8.4 mg/dL (8.4-10.2) 11/15/19 06:07 Phosphorus 4.3 mg/dL (2.5-4.5) 11/12/19 09:11 Magnesium 2.1 mg/dL (1.6-2.3) 11/12/19 09:11 11/15/19 06:07 11/15/19 06:07 Assessment and Plan Plan: Assessment: 1. Acute kidney injury secondary to ATN secondary to severe anemia and hemodyna renita instability. Renal function worsened the last few days. Creatinine 3.7 today. Patient is nonoliguric. No hydronephrosis noted on kidney ultrasound done on November 03. Right kidney noted to be 8.9 cm. 2. Acute GI bleed status post exploratory laparotomy with duodenectomy and oversewing of duodenal ulcer on November 01. 3. A. fib with RVR. Now rate controlled. 4. Chronic kidney disease. Unknown baseline renal function. 5. Volume overload. 6. Diabetes mellitus. Plan: Lasix 40 mg IV once today. Check chest x-ray. Check urinalysis. Wean FiO2. Avoid nephrotoxins. Continue to monitor renal function and urine output. Thank you for the consultation. I will continue to follow the patient with you during his hospital stay.
--- NOTE | 2019-11-15 11:25 | XR ---
EXAMINATION TYPE: XR chest 1V DATE OF EXAM: 11/15/2019 COMPARISON: 11/12/2019 HISTORY: Shortness of breath TECHNIQUE: Single frontal view of the chest is obtained. FINDINGS: Bilateral consolidation and pleural effusion. Stable central line. No pneumothorax. Centra l interstitial prominence. Heart size stable. IMPRESSION: Stable pleural-parenchymal changes correlate for mild CHF otherwise consider pneumonia.
[2019-11-15 13:19] LABS: Glucose,Whole Blood 134 mg/dL (75-99)
[2019-11-15 15:01] LABS: Appearance,Urine Clear (Clear); Bilirubin,Urine Negative (Negative); Blood,Urine Negative (Negative); Color,Urine Light Yellow; Glucose,Urine (UA) Negative (Negative); Ketones,Urine Negative (Negative); Leukocyte Esterase,Urine Negative (Negative); Nitrite,Urine Negative (Negative); Protein,Urine Negative (Negative); Specific Gravity,Urine 1.007 (1.001-1.035); Urobilinogen,Urine <2.0 mg/dL (<2.0)
--- NOTE | 2019-11-15 15:26 | P.PN ---
Subjective Progress Note Date: 11/15/19 CHIEF COMPLAINT: Bleeding duodenal ulcer HISTORY OF PRESENT ILLNESS: The patient is a 79-year-old male status post control of duodenal ulcer via exploratory laparotomy. He is sitting up in bed. No reports of bleeding. ROS: No reports of nausea and vomiting. No fevers or chills. No new chest pain. PHYSICAL EXAM: VITAL SIGNS: Reviewed CONSTITUTIONAL: Well developed and in no acute distress. EYES: Conjuctivae without sclera icterus. Extraocular movements grossly intact. HEAD, EARS, NOSE, THROAT: Moist buccal mucosa. Head is atraumatic, normocephalic. Hears conversational speech. No nasal drainage. NECK: Supple. No thyroidomegaly. RESPIRATORY: Non-labored respirations and equal bilateral excursions. CARDIOVASCULAR: Palpable 2+ radial pulses. ABDOMEN: Incisions dry and intact. Soft. No peritonitis. MUSCULOSKELETAL: No gross deformity of the lower extremities noted. No clubbi ng. No cyanosis. SKIN: Good skin turgor. Well perfused. NEUROLOGIC: Cranial nerves I through XII grossly intact. No focal or lateralizing signs. PSYCH: Appropriate affect. Alert and oriented to person, place and time. CLINICAL LABS: White blood cell count normal. Hemoglobin stable at 7.4-7.5, now 7.3 Creatinine 2.94 elevated over 3+ ASSESSMENT: 1. Acute blood loss edema due to bleeding duodenal ulcer 2. Status post multiple transfusions, 9 units 3. 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 Diabetes type 2, uncontrolled, complications diabetic nephropathy 5. Chronic atrial fibrillation PLAN: 1. Monitor creatinine with nephrology input 2. Surgically stable 3. Physical therapy for rehab assessment Objective - Vital Signs Vital signs: Vital Signs Temp 98.9 F 11/15/19 12:00 Pulse 68 11/15/19 12:08 Resp 24 11/15/19 12:00 BP 122/54 11/15/19 12:00 Pulse Ox 92 L 11/15/19 12:00 Intake & Output 11/14/19 11/15/19 11/15/19 18:59 06:59 18:59 Intake Total 490 1230 420 Output Total 325 2325 375 Balance 165 -1095 45 Weight 97.5 kg Intake: IV 30 30 20 Invasive Line 1 30 30 20 Oral 460 1200 400 Output: Urine 325 2325 375 Other: Voiding Method Indwelling Catheter Indwelling Catheter Indwelling Catheter # Voids 0 0 # Bowel Movements 3 2 ABP, PAP, CO, CI - Last Documented Arterial Blood Pressure 168/55 - Labs CBC & Chem 7: 11/15/19 06:07 11/15/19 06:07 Labs: Abnormal Lab Results - Last 24 Hours (Table) 11/14/19 11/14/19 11/15/19 Range/Units 17:06 20:26 06:07 RBC 2.46 L (4.30-5.90) m/uL Hgb 7.3 L (13.0-17.5) gm/dL Hct 22.2 L (39.0-53.0) % Lymphocytes # 0.7 L (1.0-4.8) k/uL Chloride (98-107) mmol/L BUN (9-20) mg/dL Creatinine (0.66-1.25) mg/dL Glucose (74-99) mg/dL POC Glucose (mg/dL) 156 H 178 H (75-99) mg/dL 11/15/19 11/15/19 11/15/19 Range/Units 06:07 06:57 13:15 RBC (4.30-5.90) m/uL Hgb (13.0-17.5) gm/dL Hct (39.0-53.0) % Lymphocytes # (1.0-4.8) k/uL Chloride 109 H (98-107) mmol/L BUN 39 H (9-20) mg/dL Creatinine 3.27 H (0.66-1.25) mg/dL Glucose 104 H (74-99) mg/dL POC Glucose (mg/dL) 118 H 134 H (75-99) mg/dL Assessment and Plan (1) 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 Current Visit: Yes Status: Acute Code(s): E11.22 - TYPE 2 DIABETES MELLITUS W DIABETIC CHRONIC KIDNEY DISEASE; N18.4 - CHRONIC KIDNEY DISEASE, STAGE 4 (SEVERE) SNOMED Code(s): 076776005 (2) Diabetes type 2, uncontrolled Current Visit: Yes Status: Acute Code(s): E11.65 - TYPE 2 DIABETES MELLITUS WITH HYPERGLYCEMIA SNOMED Code(s): 294954711 (3) Hypertensive heart disease Current Visit: Yes Status: Acute Code(s): I11.9 - HYPERTENSIVE HEART DISEASE WITHOUT HEART FAILURE SNOMED Code(s): 74756460 (4) Acute blood loss anemia Current Visit: Yes Status: Acute Code(s): D62 - ACUTE POSTHEMORRHAGIC ANEMIA SNOMED Code(s): 298235127 (5) Bleeding duodenal ulcer Current Visit: Yes Status: Acute Code(s): K26.4 - CHRONIC OR UNSPECIFIED DUODENAL ULCER WITH HEMORRHAGE SNOMED Code(s): 31964917
[2019-11-15 18:00] LABS: Glucose,Whole Blood 149 mg/dL (75-99)
[2019-11-15] MEDS: ATORVASTATIN 10 MG TAB PO SCH (20:46)
[2019-11-15 20:57] LABS: Glucose,Whole Blood 147 mg/dL (75-99)
[2019-11-16] MEDS: PIPERACILLIN-TAZOBACTAM 3.375 GM in SODIUM CHLORIDE 0.9% 100 ML IVPB SCH ×3 (04:14→23:15)
[2019-11-16 06:18] LABS: Glucose,Whole Blood 118 mg/dL (75-99)
[2019-11-16] MEDS: LEVOTHYROXINE 125 MCG TAB PO SCH (06:26)
[2019-11-16] MEDS: INSULIN ASPART (NovoLOG) 100 UNIT/ML VIAL SQ SCH ×4 (06:28→21:03)
[2019-11-16 06:36] LABS: Magnesium 2.2 mg/dL (1.6-2.3); Potassium 3.8 mmol/L (3.5-5.1)
[2019-11-16 08:26] LABS: HCT 21.4 % (39.0-53.0); Hypochromasia Slight; MCH 29.4 pg (25.0-35.0); MCHC 32.1 g/dL (31.0-37.0); MCV 91.6 fL (80.0-100.0); Mean Platelet Volume 8.7; Platelet Count 194 k/uL (150-450); RBC 2.34 m/uL (4.30-5.90); RDW 15.2 % (11.5-15.5); WBC 8.2 k/uL (3.8-10.6)
[2019-11-16 08:41] LABS: HGB 6.9 gm/dL (13.0-17.5)
[2019-11-16] MEDS: FORMOTEROL FUMARATE 20 MCG/2 ML NEBU INHALATION SCH ×2 (08:47→19:45)
[2019-11-16] MEDS: IPRATROPIUM-ALBUTEROL 3 ML NEB INHALATION SCH ×4 (08:47→19:45)
[2019-11-16] MEDS: BUDESONIDE 1 MG/2 ML NEBU INHALATION SCH ×2 (08:47→19:45)
--- NOTE | 2019-11-16 09:02 | P.PN ---
Subjective Progress Note Date: 11/15/19 Principal diagnosis: GI bleed; status post EGD/colonoscopy Duodenal ulcer/ischemic colitis 10/30/2017 patient seen in follow-up in the intensive care unit; patient's family is at bedside and had multiple questions which were all addressed to her sa pjfaction; patient is status post EGD/colonoscopy which revealed a duodenal ulcer, that was not actively bleeding with a large anterior and clot in the second portion of the duodenum. Colonoscopy revealed ischemic colitis in the left colon with biopsies taken. However the procedure had to be aborted related to poor prep. Lab review shows hemoglobin is 6.8, patient has had 2 units of blood already, and he is receiving an additional unit of blood this morning. Hemodynamically patient is stable, receiving IV fluids, with 0.9 normal saline at a rate of 100 ML per hour. He remains on high flow oxygen, at 10 L and his pulse ox is 92- 93%. Complaints of chest pain, patient does have exertional dyspnea, today's chest x-ray has been reviewed, showing bibasilar atelectasis and bilateral pleur al effusions. Patient is still getting IV fluids at a rate of 100, we will turn it was down, and give the patient a dose of IV Lasix, today's labs have been reviewed, showing white blood cell count 8.3, hemoglobin of 6.8, platelet count 293, sodium was 143, potassium was 5.4, chloride was 117, CO2 was 22, BUN was 53, creatinine was 2.94. No report of any further rectal bleeding; we will continue to monitor H&H closely and transfuse when needed 10/31/2019 patient is seen and evaluatedin follow-up in the intensive care unit. He is awake and alert in no acute distress. His hemoglobin was 6.6 earlier this morning. He is receiving his fourth unit of packed red blood cells in total this admission. He did undergo an EGD this morning and was found to have a large adherent clot along the duodenal sweep which was removed. A deep ulceration with active bleeding was visible. Epinephrine and Endo Clip placement obtained good hemostasis. There are large clots in the stomach. NG tube remains in place. He remains on Protonix 40 mg every 12 hours. Surgical consult was placed. He is currently afebrile. Hemodynamically stable. He is on 10 L high flow nasal cannula to maintain O2 saturations in the mid 90s. 0.9 normal saline at 50 MLS per hour. Remains on Unasyn. Chest x-ray shows some evidence of fluid volume overload and small effusions. White count 5.1. Creatinine 2.77. patient's family is at bedside and on inquiring about transferring the patient to [place]; did advise and son that patient is unstable at this time and family will have to discuss this with case management on Saturday11/01/2019 Patient is seen and evaluated in the room at bedside; patient has been having profuse rectal bleeding; patient underwent EGD which showed bleeding duodenal ulcer, Endo Clip was applied; patient had an episode of dark stools during the night but started bleeding profusely this afternoon; stat H&H is done which shows hemoglobin at 6.0; patient has been started on IV Levophed to maintain blood pressure; patient was evaluated by GI, ICU team and surgery and was recommended transferred to a tertiary care center; [facility] was consulted and transfer arrangements to [facility] surgical ICU were made; patient was deemed unstable for transfer and is taken to OR by the surgical team 11/10/2019 in follow-up on the regular medical floor. He is awake and alert in no acute distress. He denies any worsening shortness of breath, cough or congestion. He is maintaining O2 saturations 90% on 4 L/m per nasal cannula. He did have an episode of atrial fibrillation with a rapid ventricular response this morning. Currently stable with a rate in the 70s. Cardiology is on the case. No current signs of active bleeding. Hemoglobin 8.6. He is status post 9 units of packed red blood cells and 1 unit of fresh frozen plasma this admission. Blood cultures reveal no growth. White count 6.6. Creatinine 2.20. 11/11/2019 Patient is seen and evaluated in room at bedside; patient denies any specific complaints Vital signs are reviewed and stable Lab work shows a stable hemoglobin of 8.3 Patient is being followed by surgery for bleeding duodenal ulcer, status post exploratory laparotomy with duodenectomy and oversewing of bleeding duodenal ulcer/ acute blood loss anemia; we are presently continuing to monitor H&H closely; IVELISSE drain remains in place; patient has been started on full liquid diet and will be advanced if hemoglobins remained stable in next 24 hours 11/12/2019 The patient was seen and examined resting comfortably in bed. Patient has apparently been having episodes of PAF with RVR starting around midnight through this morning. Currently in sinus rhythm. Again the patient is symptomatic with these episodes with some dizziness as well as shortness of breath and palpitations. The patient Cytomel was discontinued due to a TSH of less than 0.15. Free T4 was normal. He remains on levothyroxine 125 g daily. Currently on metoprolol tartrate 50 mg by mouth twice a day and amiodarone 200 mg by mouth twice a day. I did speak to Dr. Plascencia this morning who would favor of not anticoagulating the patient as recurrent GI bleed could be detrimental. Laboratory values from this morning revealed. Hemoglobin is stable at 8.8. BUN is 39 and creatinine is 2.48 which is up from 2.36 yesterday. 11/13/2019 Patient is seen and examined in selective care unit this morning, patient is transferred to selective care for A. fib with RVR; in normal sinus rhythm normal Blood pressure 147/60 with a heart rate in the 70s. White blood cell count 5.5, hemoglobin 7.3, platelet count 167. Sodium 141, potassium 4.4, BUN 39, creatinine 2.8. Cardiology has increased the dose of beta alfredo to 50 mg one tablet by mouth 3 times a day, continue the rest of the patient's medications. He is not a candidate for anticoagulation because of the GI bleed. 11/14/2019 Patient is seen and evaluated in selective care unit sitting up in bed; voices no specific complaints vital signs reveal temperature of 97.6, pulse 67, respiration 20 and blood pr essure 140/78 with SpO2 of 91% on high flow nasal cannula oxygen of 60 L Lab review shows a hemoglobin of 7.5, an uptrending BUN/creatinine of 42/2.97; we will consult nephrology for further evaluation cardiology is following and recommending to continue current medications Patient is being seen by surgery and is recommended to be monitored closely and plan is to transfer to tertiary care center if hemoglobin continues to drop; diet will be advanced as tolerated; no anticoagulation therapy 11/15/2019 Patient is seen on selective care unit sitting up in bed; denies any specific complaints Vital signs remained stable with a pulse of 72 respiration 18, blood pressure 1 64/76 and SpO2 changing from 91-95% Labs are reviewed with a white blood count of 8.7, hemoglobin is down to 7.3 from 7.5 yesterday; BUN/creatinine of 39/3.27; creatinine has trended up from 2.9 yesterday up to 3.2; patient has been evaluated by nephrology; worsening renal function most likely secondary to anemia and hemodynamic instability; recommending Lasix 40 mg IV 1; reorder chest x-ray, UA; avoid nephrotoxins; continue to monitor strict [facility]PH[facility]'s Surgery is following for bleeding duodenal ulcer; patient is status post duodenectomy and oversewing of duodenal ulcer; surgery recommends transfer to a tertiary care center if hemoglobin drops or patient rebleeds Objective - Vital Signs Vital signs: Vital Signs Temp 98.9 F 11/15/19 12:00 Pulse 68 11/15/19 12:08 Resp 24 11/15/19 12:00 BP 122/54 11/15/19 12:00 Pulse Ox 92 L 11/15/19 12:00 Intake & Output 11/14/19 11/15/19 11/15/19 18:59 06:59 18:59 Intake Total 490 1230 220 Output Total 325 2325 375 Balance 165 -1095 -155 Weight 97.5 kg Intake: IV 30 30 20 Invasive Line 1 30 30 20 Oral 460 1200 200 Output: Urine 325 2325 375 Other: Voiding Method Indwelling Catheter Indwelling Catheter Indwelling Catheter # Voids 0 0 # Bowel Movements 3 2 ABP, PAP, CO, CI - Last Documented Arterial Blood Pressure 168/55 - Exam PHYSICAL EXAMINATION: GENERAL: The patient is alert and oriented x3, not in any acute distress. Well developed, well nourished. HEENT: Pupils are round and equally reacting to light. EOMI. No scleral icterus. No conjunctival pallor. Normocephalic, atraumatic. No pharyngeal erythema. No thyromegaly. CARDIOVASCULAR: S1 and S2 present. No murmurs, rubs, or gallops. PULMONARY: Chest is clear to auscultation, no wheezing or crackles. ABDOMEN: Soft, nontender, nondistended, normoactive bowel sounds. No palpable organomegaly. MUSCULOSKELETAL: No joint swelling or deformity. EXTREMITIES: No cyanosis, clubbing, or pedal edema. NEUROLOGICAL: Gross neurological examination did not reveal any focal deficits. SKIN: No rashes. - Labs CBC & Chem 7: 11/15/19 06:07 11/15/19 06:07 Labs: Abnormal Lab Results - Last 24 Hours (Table) 11/14/19 11/14/19 11/15/19 Range/Units 17:06 20:26 06:07 RBC 2.46 L (4.30-5.90) m/uL Hgb 7.3 L (13.0-17.5) gm/dL Hct 22.2 L (39.0-53.0) % Lymphocytes # 0.7 L (1.0-4.8) k/uL Chloride (98-107) mmol/L BUN (9-20) mg/dL Creatinine (0.66-1.25) mg/dL Glucose (74-99) mg/dL POC Glucose (mg/dL) 156 H 178 H (75-99) mg/dL 11/15/19 11/15/19 11/15/19 Range/Units 06:07 06:57 13:15 RBC (4.30-5.90) m/uL Hgb (13.0-17.5) gm/dL Hct (39.0-53.0) % Lymphocytes # (1.0-4.8) k/uL Chloride 109 H (98-107) mmol/L BUN 39 H (9-20) mg/dL Creatinine 3.27 H (0.66-1.25) mg/dL Glucose 104 H (74-99) mg/dL POC Glucose (mg/dL) 118 H 134 H (75-99) mg/dL Assessment and Plan Assessment: Acute blood loss anemia - Patient is status post EGD/colonoscopy which revealed duodenal ulcer without any active bleeding with the large interior clot in the second portion of duodenum; colonoscopy revealed ischemic colitis and left colon; by this is done and results are pending patient will need upper GI endoscopy gastric body was consulted will transfuse him 2 units of blood and patient is bit hypotensive continue with IV fluids at 100 mL/h hold off on antidepressant medications except for metoprolol. Patient is presently on Protonix IV twice a day -Current artery disease continue with metoprolol hold off rest of the blood pressure medications and aspirin because of GI bleed -Hypertension patient is presently hypotensive secondary to GI bleed holding off on lisinopril, hydralazine. -Renal failure: I do not have any previous creatinine available patient denied any history of chronic kidney disease, patient may have acute renal failure from prerenal azotemia from acute GI bleed. 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 -Continued nicotine use: Counseling was provided for above-mentioned chronic medical problems patient will be resumed on appropriate home medications.
[2019-11-16] MEDS: PANTOPRAZOLE 40 MG/10 ML VIAL IV SCH ×2 (09:39→21:02)
[2019-11-16] MEDS: hydrALAZINE HCL 50 MG TAB PO SCH ×3 (09:39→21:02)
[2019-11-16] MEDS: SODIUM CHLORIDE 0.9% 1,000 ML IV SCH (09:39)
[2019-11-16] MEDS: FLUCONAZOLE 100 MG TAB PO SCH (09:40)
[2019-11-16] MEDS: PREGABALIN 50 MG CAP PO SCH ×2 (09:40→21:02)
[2019-11-16] MEDS: METOPROLOL TARTRATE 50 MG TAB PO SCH ×3 (09:40→21:02)
[2019-11-16] MEDS: NICOTINE 14MG/24HR PATCH TRANSDERM SCH (09:40)
[2019-11-16] MEDS: LINAGLIPTIN 5 MG TABLET PO SCH (09:40)
[2019-11-16] MEDS: AMIODARONE 200 MG TAB PO SCH ×2 (09:40→21:03)
[2019-11-16] MEDS: amLODIPine 10 MG TAB PO SCH (09:40)
[2019-11-16] MEDS: LIDOCAINE 5% PATCH TOPICAL SCH (09:41)
[2019-11-16] MEDS ORDERED: FUROSEMIDE 10 MG/ML 4 ML VIAL IV STA (09:48)
--- NOTE | 2019-11-16 09:49 | P.PN ---
Subjective Patient is seen in follow-up for acute kidney injury. Renal function is fairly stable. He remains on high flow nasal cannula. He did receive Lasix 40 mg IV once yesterday. He has a Cohen catheter. Urine output documented as 2.6 L in the last 24 hours. Denies active chest pain or shortness of breath. Vital signs are stable. General: The patient appeared well nourished and normally developed. HEENT: Head exam is unremarkable. Neck is without jugular venous distension. LUNGS: Breath sounds decreased. HEART: Rate and Rhythm are regular. First and second heart sounds normal. No murmurs, rubs or gallops. ABDOMEN: Abdominal exam reveals normal bowel sounds. Non-tender and non- distended. No evidence of peritonitis. EXTREMITITES: No clubbing, cyanosis, or edema. Objective - Vital Signs Vital signs: Vital Signs Temp 97.9 F 11/16/19 07:45 Pulse 78 11/16/19 09:05 Resp 16 11/16/19 07:45 BP 118/55 11/16/19 07:45 Pulse Ox 99 11/16/19 07:45 Intake & Output 11/15/19 11/16/19 11/16/19 18:59 06:59 18:59 Intake Total 690 60 240 Output Total 975 675 Balance -285 -615 240 Weight 89 kg Intake: IV 30 60 Invasive Line 1 30 60 Oral 660 240 Output: Urine 975 675 Other: Voiding Method Indwelling Catheter Indwelling Catheter # Voids 0 # Bowel Movements 1 ABP, PAP, CO, CI - Last Documented Arterial Blood Pressure 168/55 - Labs CBC & Chem 7: 11/16/19 05:55 11/16/19 05:55 Labs: Abnormal Lab Results - Last 24 Hours (Table) 11/15/19 11/15/19 11/15/19 Range/Units 13:15 17:25 20:56 RBC (4.30-5.90) m/uL Hgb (13.0-17.5) gm/dL Hct (39.0-53.0) % Chloride (98-107) mmol/L BUN (9-20) mg/dL Creatinine (0.66-1.25) mg/dL Glucose (74-99) mg/dL POC Glucose (mg/dL) 134 H 149 H 147 H (75-99) mg/dL Calcium (8.4-10.2) mg/dL 11/16/19 11/16/19 11/16/19 Range/Units 05:55 05:55 06:17 RBC 2.34 L (4.30-5.90) m/uL Hgb 6.9 L* (13.0-17.5) gm/dL Hct 21.4 L (39.0-53.0) % Chloride 108 H (98-107) mmol/L BUN 41 H (9-20) mg/dL Creatinine 3.32 H (0.66-1.25) mg/dL Glucose 102 H (74-99) mg/dL POC Glucose (mg/dL) 118 H (75-99) mg/dL Calcium 8.0 L (8.4-10.2) mg/dL Assessment and Plan Plan: Assessment: 1. Acute kidney injury secondary to ATN secondary to severe anemia and hemodynamic instability. Renal function worsened the last few days. Creatinine fairly stable at 3.32 today. Patient is nonoliguric. Urinalysis is benign. No hydronephrosis noted on kidney ultrasound done on November 03. Right kidney noted to be 8.9 cm. 2. Acute GI bleed status post exploratory laparotomy with duodenectomy and oversewing of duodenal ulcer on November 01. Hemoglobin 6.9 today. 3. A. fib with RVR. Now rate controlled. 4. Chronic kidney disease. Unknown baseline renal function. 5. Volume overload. 6. Diabetes mellitus. Plan: Repeat another dose of lasix 40 mg IV once today. Wean FiO2. Avoid nephrotoxins. Continue to monitor renal function and urine output. Check iron studies. Add Aranesp. Consider 1 unit blood transfusion today.
[2019-11-16 09:56] LABS: MCH 29.3 pg (25.0-35.0); MCHC 32.3 g/dL (31.0-37.0); MCV 90.6 fL (80.0-100.0); Mean Platelet Volume 9.6; Platelet Count 161 k/uL (150-450); RBC 2.32 m/uL (4.30-5.90); RDW 15.3 % (11.5-15.5); WBC 6.6 k/uL (3.8-10.6)
[2019-11-16] MEDS ORDERED: DARBEPOETIN ALFA 40 MCG/0.4 ML SYRINGE SQ SCH (10:00)
--- NOTE | 2019-11-16 10:10 | P.PN ---
<Andie Vanegas Bridgette - Last Filed: 11/16/19 10:04> Subjective Progress Note Date: 11/16/19 CHIEF COMPLAINT: Bleeding duodenal ulcer HISTORY OF PRESENT ILLNESS: 78-year-old male who is status post exploratory laparotomy with duodenotomy and oversewing of bleeding duodenal ulcer. Patient examined this morning at the bedside. Patient denies abdominal pain. Denies nausea or vomiting. Tolerating diet. Having multiple bowel movements over the past 48 hours. No dark or bright red stools. Hemoglobin 6.9 today. Nursing reports increased oxygen requirements. Currently on Airvo at 65% Fio2. PHYSICAL EXAM: VITAL SIGNS: Reviewed GENERAL: Well-developed in no acute distress. HEENT: No sclera icterus. Extraocular movements grossly intact. Moist buccal mucosa. Head is atraumatic, normocephalic. Hears conversational speech. No nasal drainage. NECK: Supple without lymphadenopathy. CHEST: Non-labored respirations and equal bilateral excursions-on Airvo. CARDIOVASCULAR: Regular rate with regular rhythm. Palpable 2+ radial pulses. ABDOMEN: Soft. Nondistended. Surgical dressing clean dry intact. incision without redness or significant drainage. Aquacel silver x 3 to open areas of midline incision. MUSCULOSKELETAL: No clubbing or cyanosis NEUROLOGIC: No focal or lateralizing signs. Cranial nerves II through XII grossly intact. PSYCH: Appropriate affect. Alert and oriented to person, place and time. SKIN: Well perfused. Good skin turgor. ASSESSMENT: 1. Bleeding duodenal ulcer, status post exploratory laparotomy with duodenotomy and oversewing of bleeding duodenal ulcer 2. Acute blood loss anemia PLAN: -Cardiology following for recent afib with RVR. No anticoagulation at this time due to recent GI bleed. Continue to hold subcu heparin as well. SCDs for DVT prophylaxis. -Continue abdominal dressing changes with Aquacel silver. Change daily. -Continue diet as tolerated -Nursing reports medicine has been notified of hemoglobin today, who ordered repeat CBC. Recommend 1 unit RBC transfusion. However, will defer to medicine. Nurse practitioner note has been reviewed by physician. Signing provider agrees with the documented findings, assessment, and plan of care. Objective - Vital Signs Vital signs: Vital Signs Temp 97.9 F 11/16/19 07:45 Pulse 78 11/16/19 09:05 Resp 16 11/16/19 07:45 BP 118/55 11/16/19 07:45 Pulse Ox 99 11/16/19 07:45 Intake & Output 11/15/19 11/16/19 11/16/19 18:59 06:59 18:59 Intake Total 690 60 240 Output Total 975 675 Balance -285 -615 240 Weight 89 kg Intake: IV 30 60 Invasive Line 1 30 60 Oral 660 240 Output: Urine 975 675 Other: Voiding Method Indwelling Catheter Indwelling Catheter # Voids 0 # Bowel Movements 1 ABP, PAP, CO, CI - Last Documented Arterial Blood Pressure 168/55 - Labs CBC & Chem 7: 11/16/19 05:55 11/16/19 05:55 Labs: Abnormal Lab Results - Last 24 Hours (Table) 11/15/19 11/15/19 11/15/19 Range/Units 13:15 17:25 20:56 RBC (4.30-5.90) m/uL Hgb (13.0-17.5) gm/dL Hct (39.0-53.0) % Chloride (98-107) mmol/L BUN (9-20) mg/dL Creatinine (0.66-1.25) mg/dL Glucose (74-99) mg/dL POC Glucose (mg/dL) 134 H 149 H 147 H (75-99) mg/dL Calcium (8.4-10.2) mg/dL 11/16/19 11/16/19 11/16/19 Range/Units 05:55 05:55 06:17 RBC 2.34 L (4.30-5.90) m/uL Hgb 6.9 L* (13.0-17.5) gm/dL Hct 21.4 L (39.0-53.0) % Chloride 108 H (98-107) mmol/L BUN 41 H (9-20) mg/dL Creatinine 3.32 H (0.66-1.25) mg/dL Glucose 102 H (74-99) mg/dL POC Glucose (mg/dL) 118 H (75-99) mg/dL Calcium 8.0 L (8.4-10.2) mg/dL <Jose Gifford - Last Filed: 11/16/19 16:47> Subjective As above. Patient denies pain. Tolerating diet. Hemoglobin has drifted down slowly. Do not suspect active GI bleed. Agree with transfusion today. Possible ECF if hemoglobin stable and respiratory status improved. Objective - Vital Signs Vital signs: Vital Signs Temp 98.6 F 11/16/19 15:00 Pulse 68 11/16/19 15:36 Resp 20 11/16/19 15:16 BP 120/57 11/16/19 15:00 Pulse Ox 95 11/16/19 15:00 Intake & Output 11/15/19 11/16/19 11/16/19 18:59 06:59 18:59 Intake Total 685 05 3514 Output Total 975 675 400 Balance -285 -615 660 Weight 89 kg 89 kg Intake: IV 30 60 50 Invasive Line 1 30 60 50 Oral 660 700 Blood Product 310 Rc Pheresis 2 As3 Unit 310 [id number] Output: Urine 975 675 400 Other: Voiding Method Indwelling Catheter Indwelling Catheter Indwelling Catheter # Voids 0 3 # Bowel Movements 1 2 ABP, PAP, CO, CI - Last Documented Arterial Blood Pressure 168/55 - Labs CBC & Chem 7: 11/16/19 16:00 11/16/19 05:55 Labs: Abnormal Lab Results - Last 24 Hours (Table) 11/15/19 11/15/19 11/16/19 Range/Units 17:25 20:56 05:55 RBC (4.30-5.90) m/uL Hgb (13.0-17.5) gm/dL Hct (39.0-53.0) % Lymphocytes # (1.0-4.8) k/uL Chloride 108 H (98-107) mmol/L BUN 41 H (9-20) mg/dL Creatinine 3.32 H (0.66-1.25) mg/dL Glucose 102 H (74-99) mg/dL POC Glucose (mg/dL) 149 H 147 H (75-99) mg/dL Calcium 8.0 L (8.4-10.2) mg/dL Crossmatch 11/16/19 11/16/19 11/16/19 Range/Units 05:55 06:17 09:41 RBC 2.34 L 2.32 L (4.30-5.90) m/uL Hgb 6.9 L* 6.8 L* (13.0-17.5) gm/dL Hct 21.4 L 21.0 L (39.0-53.0) % Lymphocytes # (1.0-4.8) k/uL Chloride (98-107) mmol/L BUN (9-20) mg/dL Creatinine (0.66-1.25) mg/dL Glucose (74-99) mg/dL POC Glucose (mg/dL) 118 H (75-99) mg/dL Calcium (8.4-10.2) mg/dL Crossmatch 11/16/19 11/16/19 11/16/19 Range/Units 09:46 11:37 16:00 RBC 2.75 L (4.30-5.90) m/uL Hgb 8.2 L (13.0-17.5) gm/dL Hct 24.9 L (39.0-53.0) % Lymphocytes # 0.8 L (1.0-4.8) k/uL Chloride (98-107) mmol/L BUN (9-20) mg/dL Creatinine (0.66-1.25) mg/dL Glucose (74-99) mg/dL POC Glucose (mg/dL) 148 H (75-99) mg/dL Calcium (8.4-10.2) mg/dL Crossmatch See Detail 11/16/19 Range/Units 16:12 RBC (4.30-5.90) m/uL Hgb (13.0-17.5) gm/dL Hct (39.0-53.0) % Lymphocytes # (1.0-4.8) k/uL Chloride (98-107) mmol/L BUN (9-20) mg/dL Creatinine (0.66-1.25) mg/dL Glucose (74-99) mg/dL POC Glucose (mg/dL) 148 H (75-99) mg/dL Calcium (8.4-10.2) mg/dL Crossmatch Assessment and Plan (1) Bleeding duodenal ulcer Current Visit: Yes Status: Acute Code(s): K26.4 - CHRONIC OR UNSPECIFIED DUODENAL ULCER WITH HEMORRHAGE SNOMED Code(s): 90663405
[2019-11-16 10:11] LABS: HGB 6.8 gm/dL (13.0-17.5)
[2019-11-16] MEDS ORDERED: FUROSEMIDE 10 MG/ML 2 ML VIAL IV PRN (10:31)
--- NOTE | 2019-11-16 11:11 | XR ---
EXAMINATION TYPE: XR chest 1V portable DATE OF EXAM: 11/16/2019 CLINICAL HISTORY: Difficulty breathing and CHF progress study. TECHNIQUE: Single AP portable upright view of the chest is obtained. COMPARISON: Chest x-ray from one day earlier and older studies. FINDINGS: Stable right internal jugular central venous catheter. Persistent bibasilar opacities with some progression right lung base noted. Background elevated right hemidiaphragm. Background cardiome michael with atherosclerotic thoracic aorta and central vascular congestion. Osseous structures are inta ct. IMPRESSION: Cardiomegaly with small bilateral pleural effusions and central vascular congestion consi stent with CHF exacerbation redemonstrated. Worsening right basilar acute infiltrate and/or atelectas is is noted.
[2019-11-16 11:38] LABS: Glucose,Whole Blood 148 mg/dL (75-99)
[2019-11-16 14:18] VITALS: BMI 27.3
[2019-11-16 16:14] LABS: Glucose,Whole Blood 148 mg/dL (75-99)
[2019-11-16 16:26] LABS: Basophils % (A) 1 %; Eosinophils # (A) 0.1 k/uL (0-0.7); Eosinophils % (A) 1 %; HCT 24.9 % (39.0-53.0); HGB 8.2 gm/dL (13.0-17.5); Hypochromasia Slight; Lymphocytes # (A) 0.8 k/uL (1.0-4.8); Lymphocytes % (A) 10 %; MCH 29.8 pg (25.0-35.0); MCHC 32.9 g/dL (31.0-37.0); MCV 90.5 fL (80.0-100.0); Mean Platelet Volume 8.1; Monocytes # (A) 0.3 k/uL (0-1.0); Monocytes % (A) 3 %; Neutrophils # (A) 6.3 k/uL (1.3-7.7); Neutrophils % (A) 82 %; Platelet Count 185 k/uL (150-450); RBC 2.75 m/uL (4.30-5.90); RDW 15.3 % (11.5-15.5); WBC 7.7 k/uL (3.8-10.6)
[2019-11-16 17:19] LABS: % Iron Saturation 6.36 (15.00-50.00); Ferritin 426.8 ng/mL (22.0-322.0)
[2019-11-16 20:48] LABS: Glucose,Whole Blood 182 mg/dL (75-99)
[2019-11-16] MEDS: ATORVASTATIN 10 MG TAB PO SCH (21:02)
[2019-11-17] MEDS: ACETAMINOPHEN TAB 325 MG TAB PO PRN (03:59)
[2019-11-17 06:27] LABS: Glucose,Whole Blood 132 mg/dL (75-99)
[2019-11-17] MEDS: FORMOTEROL FUMARATE 20 MCG/2 ML NEBU INHALATION SCH ×2 (06:45→19:00)
[2019-11-17] MEDS: BUDESONIDE 1 MG/2 ML NEBU INHALATION SCH ×2 (06:46→19:00)
[2019-11-17] MEDS: IPRATROPIUM-ALBUTEROL 3 ML NEB INHALATION SCH ×4 (06:46→19:00)
[2019-11-17] MEDS: LEVOTHYROXINE 125 MCG TAB PO SCH (06:52)
[2019-11-17] MEDS: INSULIN ASPART (NovoLOG) 100 UNIT/ML VIAL SQ SCH ×4 (06:52→21:19)
[2019-11-17] MEDS: NICOTINE 14MG/24HR PATCH TRANSDERM SCH (09:37)
[2019-11-17] MEDS: PANTOPRAZOLE 40 MG/10 ML VIAL IV SCH ×2 (09:38→21:19)
[2019-11-17] MEDS: hydrALAZINE HCL 50 MG TAB PO SCH ×3 (09:42→21:20)
[2019-11-17] MEDS: amLODIPine 10 MG TAB PO SCH (09:42)
[2019-11-17] MEDS: FLUCONAZOLE 100 MG TAB PO SCH (09:42)
[2019-11-17] MEDS: AMIODARONE 200 MG TAB PO SCH ×2 (09:42→21:19)
[2019-11-17] MEDS: PREGABALIN 50 MG CAP PO SCH ×2 (09:43→21:19)
[2019-11-17] MEDS: METOPROLOL TARTRATE 50 MG TAB PO SCH ×3 (09:43→21:19)
[2019-11-17] MEDS: LINAGLIPTIN 5 MG TABLET PO SCH (09:43)
--- NOTE | 2019-11-17 10:33 | P.PN ---
Subjective Progress Note Date: 11/17/19 Seen and examined for the follow-up of acute kidney injury. Objective - Vital Signs Vital signs: Vital Signs Temp 98.5 F 11/17/19 03:44 Pulse 62 11/17/19 07:12 Resp 20 11/17/19 03:44 BP 123/53 11/17/19 03:44 Pulse Ox 89 L 11/17/19 06:48 Intake & Output 11/16/19 11/17/19 11/17/19 18:59 06:59 18:59 Intake Total 1260 240 Output Total 400 650 Balance 860 -650 240 Weight 89 kg 92 kg Intake: IV 50 Invasive Line 1 50 Oral 900 240 Blood Product 310 Rc Pheresis 2 As3 Unit 310 [id number] Output: Urine 400 650 Other: Voiding Method Indwelling Catheter Indwelling Catheter # Voids 3 # Bowel Movements 2 2 ABP, PAP, CO, CI - Last Documented Arterial Blood Pressure 168/55 - Exam No acute distress S1-S2 heard Decreased breath sounds No edema - Labs CBC & Chem 7: 11/16/19 16:00 11/16/19 05:55 Labs: Abnormal Lab Results - Last 24 Hours (Table) 11/16/19 11/16/19 11/16/19 Range/Units 05:55 09:46 11:37 RBC (4.30-5.90) m/uL Hgb (13.0-17.5) gm/dL Hct (39.0-53.0) % Lymphocytes # (1.0-4.8) k/uL POC Glucose (mg/dL) 148 H (75-99) mg/dL Iron 11 L (65-175) ug/dL TIBC 173 L (228-460) ug/dL % Saturation 6.36 L (15.00-50.00) Ferritin 426.8 H (22.0-322.0) ng/mL Crossmatch See Detail 11/16/19 11/16/19 11/16/19 Range/Units 16:00 16:12 20:47 RBC 2.75 L (4.30-5.90) m/uL Hgb 8.2 L (13.0-17.5) gm/dL Hct 24.9 L (39.0-53.0) % Lymphocytes # 0.8 L (1.0-4.8) k/uL POC Glucose (mg/dL) 148 H 182 H (75-99) mg/dL Iron (65-175) ug/dL TIBC (228-460) ug/dL % Saturation (15.00-50.00) Ferritin (22.0-322.0) ng/mL Crossmatch 11/17/19 Range/Units 06:26 RBC (4.30-5.90) m/uL Hgb (13.0-17.5) gm/dL Hct (39.0-53.0) % Lymphocytes # (1.0-4.8) k/uL POC Glucose (mg/dL) 132 H (75-99) mg/dL Iron (65-175) ug/dL TIBC (228-460) ug/dL % Saturation (15.00-50.00) Ferritin (22.0-322.0) ng/mL Crossmatch Assessment and Plan Assessment: #1 acute kidney injury secondary to ischemic ATN from hemodynamic instability. Creatinine stable. #2 acute GI bleed status post exploratory laparotomy secondary to duodenal ulcer. #3 A. fib with RVR currently controlled #4 chronic kidney disease, unknown baseline #5 diabetes Plan: #1 no new labs today. Repeat labs tomorrow #2 avoid nephrotoxic agents and hypotensive episodes. #3 labs in the morning
[2019-11-17 11:15] LABS: Glucose,Whole Blood 159 mg/dL (75-99)
--- NOTE | 2019-11-17 11:24 | P.PN ---
<Andie Vanegas - Last Filed: 11/17/19 11:24> Subjective Progress Note Date: 11/17/19 CHIEF COMPLAINT: Bleeding duodenal ulcer HISTORY OF PRESENT ILLNESS: 78-year-old male who is status post exploratory laparotomy with duodenotomy and oversewing of bleeding duodenal ulcer. Patient examined this morning at the bedside. Patient denies abdominal pain. Denies nausea or vomiting. Tolerating diet. Passing flatus and having bowel movements. No dark or bright red stools. Hemoglobin 8.2 today. He received 1 unit RBC yesterday. Remains on Airvo at 70% Fio2. PHYSICAL EXAM: VITAL SIGNS: Reviewed GENERAL: Well-developed in no acute distress. HEENT: No sclera icterus. Extraocular movements grossly intact. Moist buccal mucosa. Head is atraumatic, normocephalic. Hears conversational speech. No nasal drainage. NECK: Supple without lymphadenopathy. CHEST: Non-labored respirations and equal bilateral excursions-on Airvo. CARDIOVASCULAR: Regular rate with regular rhythm. Palpable 2+ radial pulses. ABDOMEN: Soft. Nondistended. Surgical dressing clean dry intact. incision without redness or significant drainage. Aquacel silver x 3 to open areas of midline incision. MUSCULOSKELETAL: No clubbing or cyanosis NEUROLOGIC: No focal or lateralizing signs. Cranial nerves II through XII grossly intact. PSYCH: Appropriate affect. Alert and oriented to person, place and time. SKIN: Well perfused. Good skin turgor. ASSESSMENT: 1. Bleeding duodenal ulcer, status post exploratory laparotomy with duodenotomy and oversewing of bleeding duodenal ulcer 2. Acute blood loss anemia PLAN: -Cardiology following for recent afib with RVR. No anticoagulation at this time due to recent GI bleed. Continue to hold subcu heparin as well. SCDs for DVT prophylaxis. -Continue abdominal dressing changes with Aquacel silver. Change daily. -Continue diet as tolerated -Continue to monitor hemoglobin -ECF when stable Nurse practitioner note has been reviewed by physician. Signing provider agrees with the documented findings, assessment, and plan of care. Objective - Vital Signs Vital signs: Vital Signs Temp 98.5 F 11/17/19 03:44 Pulse 62 11/17/19 07:12 Resp 20 11/17/19 03:44 BP 123/53 11/17/19 03:44 Pulse Ox 89 L 12/31/19 06:48 Intake & Output 11/16/19 11/17/19 11/17/19 18:59 06:59 18:59 Intake Total 1260 240 Output Total 400 650 Balance 860 -650 240 Weight 89 kg 92 kg Intake: IV 50 Invasive Line 1 50 Oral 900 240 Blood Product 310 Rc Pheresis 2 As3 Unit 310 [id number] Output: Urine 400 650 Other: Voiding Method Indwelling Catheter Indwelling Catheter # Voids 3 # Bowel Movements 2 2 1 ABP, PAP, CO, CI - Last Documented Arterial Blood Pressure 168/55 - Labs CBC & Chem 7: 11/16/19 16:00 11/16/19 05:55 Labs: Abnormal Lab Results - Last 24 Hours (Table) 11/16/19 11/16/19 11/16/19 Range/Units 05:55 09:46 11:37 RBC (4.30-5.90) m/uL Hgb (13.0-17.5) gm/dL Hct (39.0-53.0) % Lymphocytes # (1.0-4.8) k/uL POC Glucose (mg/dL) 148 H (75-99) mg/dL Iron 11 L (65-175) ug/dL TIBC 173 L (228-460) ug/dL % Saturation 6.36 L (15.00-50.00) Ferritin 426.8 H (22.0-322.0) ng/mL Crossmatch See Detail 11/16/19 11/16/19 11/16/19 Range/Units 16:00 16:12 20:47 RBC 2.75 L (4.30-5.90) m/uL Hgb 8.2 L (13.0-17.5) gm/dL Hct 24.9 L (39.0-53.0) % Lymphocytes # 0.8 L (1.0-4.8) k/uL POC Glucose (mg/dL) 148 H 182 H (75-99) mg/dL Iron (65-175) ug/dL TIBC (228-460) ug/dL % Saturation (15.00-50.00) Ferritin (22.0-322.0) ng/mL Crossmatch 11/17/19 Range/Units 06:26 RBC (4.30-5.90) m/uL Hgb (13.0-17.5) gm/dL Hct (39.0-53.0) % Lymphocytes # (1.0-4.8) k/uL POC Glucose (mg/dL) 132 H (75-99) mg/dL Iron (65-175) ug/dL TIBC (228-460) ug/dL % Saturation (15.00-50.00) Ferritin (22.0-322.0) ng/mL Crossmatch <Lissa Morel - Last Filed: 11/18/19 10:29> Subjective As above. No overt signs of bleeding. May be transferred once hemoglobin stabilizes. Objective - Vital Signs Vital signs: Vital Signs Temp 98.1 F 11/18/19 08:00 Pulse 55 L 11/18/19 10:00 Resp 20 11/18/19 10:00 BP 101/45 11/18/19 10:00 Pulse Ox 99 11/18/19 10:00 Intake & Output 11/17/19 11/18/19 11/18/19 18:59 06:59 18:59 Intake Total 720 1000 1206.12 Output Total 100 400 295 Balance 620 600 911.12 Intake: IV 1000 1000 Sodium Chloride 0.9% 1, 1000 1000 000 ml @ 999 mls/hr IV . Q1H1M [facility] Rx#:[id number] Intake, IV Titration 206.12 Amount Propofol 1,000 mg In 56.12 Empty Bag 1 bag @ Titrate IV .Q0M [facility] Rx#: [id number] Sodium Chloride 0.9% 1, 150 000 ml @ 75 mls/hr IV . [id number] [facility] Rx#:[id number] Oral 720 Output: Gastric Drainage 285 Urine 100 400 10 Other: Voiding Method Indwelling Catheter Indwelling Catheter Indwelling Catheter # Voids 1 1 # Bowel Movements 1 ABP, PAP, CO, CI - Last Documented Arterial Blood Pressure 168/55 - Labs CBC & Chem 7: 11/18/19 04:20 11/18/19 04:20 Labs: Abnormal Lab Results - Last 24 Hours (Table) 11/17/19 11/17/19 11/17/19 Range/Units 11:14 17:00 20:16 WBC (3.8-10.6) k/uL RBC (4.30-5.90) m/uL Hgb (13.0-17.5) gm/dL Hct (39.0-53.0) % RDW (11.5-15.5) % D-Dimer (<0.60) mg/L FEU ABG pH (7.35-7.45) ABG pCO2 (35-45) mmHg ABG Total CO2 (19-24) mmol/L ABG O2 Saturation (94-97) % ABG Lactic Acid (0.5-1.6) mmol/L BUN (9-20) mg/dL Creatinine (0.66-1.25) mg/dL Glucose (74-99) mg/dL POC Glucose (mg/dL) 159 H 202 H 252 H (75-99) mg/dL Calcium (8.4-10.2) mg/dL Phosphorus (2.5-4.5) mg/dL Urine Protein (Negative) Urine Glucose (UA) (Negative) Urine Ketones (Negative) Urine Blood (Negative) Ur Leukocyte Esterase (Negative) Urine RBC (0-5) /hpf Urine WBC (0-5) /hpf Urine WBC Clumps (None) /hpf Amorphous Sediment (None) /hpf Urine Bacteria (None) /hpf 11/18/19 11/18/19 11/18/19 Range/Units 03:51 04:13 04:20 WBC 11.6 H (3.8-10.6) k/uL RBC 2.90 L (4.30-5.90) m/uL Hgb 8.4 L (13.0-17.5) gm/dL Hct 26.8 L (39.0-53.0) % RDW 15.6 H (11.5-15.5) % D-Dimer (<0.60) mg/L FEU ABG pH (7.35-7.45) ABG pCO2 (35-45) mmHg ABG Total CO2 (19-24) mmol/L ABG O2 Saturation (94-97) % ABG Lactic Acid (0.5-1.6) mmol/L BUN (9-20) mg/dL Creatinine (0.66-1.25) mg/dL Glucose (74-99) mg/dL POC Glucose (mg/dL) 281 H 305 H (75-99) mg/dL Calcium (8.4-10.2) mg/dL Phosphorus (2.5-4.5) mg/dL Urine Protein (Negative) Urine Glucose (UA) (Negative) Urine Ketones (Negative) Urine Blood (Negative) Ur Leukocyte Esterase (Negative) Urine RBC (0-5) /hpf Urine WBC (0-5) /hpf Urine WBC Clumps (None) /hpf Amorphous Sediment (None) /hpf Urine Bacteria (None) /hpf 11/18/19 11/18/19 11/18/19 Range/Units 04:20 04:20 04:20 WBC (3.8-10.6) k/uL RBC (4.30-5.90) m/uL Hgb (13.0-17.5) gm/dL Hct (39.0-53.0) % RDW (11.5-15.5) % D-Dimer 11.43 H (<0.60) mg/L FEU ABG pH (7.35-7.45) ABG pCO2 (35-45) mmHg ABG Total CO2 (19-24) mmol/L ABG O2 Saturation (94-97) % ABG Lactic Acid 2.9 H* (0.5-1.6) mmol/L BUN 46 H (9-20) mg/dL Creatinine 4.59 H (0.66-1.25) mg/dL Glucose 278 H (74-99) mg/dL POC Glucose (mg/dL) (75-99) mg/dL Calcium 8.2 L (8.4-10.2) mg/dL Phosphorus 7.3 H (2.5-4.5) mg/dL Urine Protein (Negative) Urine Glucose (UA) (Negative) Urine Ketones (Negative) Urine Blood (Negative) Ur Leukocyte Esterase (Negative) Urine RBC (0-5) /hpf Urine WBC (0-5) /hpf Urine WBC Clumps (None) /hpf Amorphous Sediment (None) /hpf Urine Bacteria (None) /hpf 11/18/19 11/18/19 11/18/19 Range/Units 04:29 08:08 08:28 WBC (3.8-10.6) k/uL RBC (4.30-5.90) m/uL Hgb (13.0-17.5) gm/dL Hct (39.0-53.0) % RDW (11.5-15.5) % D-Dimer (<0.60) mg/L FEU ABG pH 7.21 L (7.35-7.45) ABG pCO2 61 H (35-45) mmHg ABG Total CO2 26 H (19-24) mmol/L ABG O2 Saturation 97.1 H (94-97) % ABG Lactic Acid (0.5-1.6) mmol/L BUN (9-20) mg/dL Creatinine (0.66-1.25) mg/dL Glucose (74-99) mg/dL POC Glucose (mg/dL) 201 H (75-99) mg/dL Calcium (8.4-10.2) mg/dL Phosphorus (2.5-4.5) mg/dL Urine Protein 2+ H (Negative) Urine Glucose (UA) Trace H (Negative) Urine Ketones Trace H (Negative) Urine Blood Moderate H (Negative) Ur Leukocyte Esterase Large H (Negative) Urine RBC 88 H (0-5) /hpf Urine WBC >182 H (0-5) /hpf Urine WBC Clumps Few H (None) /hpf Amorphous Sediment Rare H (None) /hpf Urine Bacteria Many H (None) /hpf Assessment and Plan (1) 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 Current Visit: Yes Status: Acute Code(s): E11.22 - TYPE 2 DIABETES MELLITUS W DIABETIC CHRONIC KIDNEY DISEASE; N18.4 - CHRONIC KIDNEY DISEASE, STAGE 4 (SEVERE) SNOMED Code(s): 216813580 (2) Diabetes type 2, uncontrolled Current Visit: Yes Status: Acute Code(s): E11.65 - TYPE 2 DIABETES MELLITUS WITH HYPERGLYCEMIA SNOMED Code(s): 645247099 (3) Hypertensive heart disease Current Visit: Yes Status: Acute Code(s): I11.9 - HYPERTENSIVE HEART DISEASE WITHOUT HEART FAILURE SNOMED Code(s): 95991111 (4) Acute blood loss anemia Current Visit: Yes Status: Acute Code(s): D62 - ACUTE POSTHEMORRHAGIC ANEMIA SNOMED Code(s): 615790486 (5) Bleeding duodenal ulcer Current Visit: Yes Status: Acute Code(s): K26.4 - CHRONIC OR UNSPECIFIED DUODENAL ULCER WITH HEMORRHAGE SNOMED Code(s): 67536624
[2019-11-17] MEDS: PIPERACILLIN-TAZOBACTAM 3.375 GM in SODIUM CHLORIDE 0.9% 100 ML IVPB SCH ×2 (12:20→23:52)
[2019-11-17 17:02] LABS: Glucose,Whole Blood 202 mg/dL (75-99)
[2019-11-17] MEDS: LIDOCAINE 5% PATCH TOPICAL SCH (17:51)
[2019-11-17] MEDS: SODIUM CHLORIDE 0.9% 1,000 ML IV SCH (17:52)
[2019-11-17 20:17] LABS: Glucose,Whole Blood 252 mg/dL (75-99)
[2019-11-17] MEDS: ATORVASTATIN 10 MG TAB PO SCH (21:19)
[2019-11-17] MEDS: HYDROmorphone 0.5 MG/0.5 ML SYRINGE IVP PRN (21:20)
--- NOTE | 2019-11-17 23:18 | P.PN ---
Subjective Progress Note Date: 11/16/19 Principal diagnosis: GI bleed; status post EGD/colonoscopy Duodenal ulcer/ischemic colitis 10/30/2017 patient seen in follow-up in the intensive care unit; patient's family is at bedside and had multiple questions which were all addressed to her satisfaction; patient is status post EGD/colonoscopy which revealed a duodenal ulcer, that was not actively bleeding with a large anterior and clot in the second portion of the duodenum. Colonoscopy revealed ischemic colitis in the left colon with biopsies taken. However the procedure had to be aborted related to poor prep. Lab review shows hemoglobin is 6.8, patient has had 2 units of blood already, and he is receiving an additional unit of blood this morning. Hemodynamically patient is stable, receiving IV fluids, with 0.9 normal saline at a rate of 100 ML per hour. He remains on high flow oxygen, at 10 L and his pulse ox is 92- 93%. Complaints of chest pain, patient does have exertional dyspnea, today's chest x-ray has been reviewed, showing bibasilar atelectasis and bilateral pleural effusions. Patient is still getting IV fluids at a rate of 100, we will turn it was down, and give the patient a dose of IV Lasix, today's labs have been reviewed, showing white blood cell count 8.3, hemoglobin of 6.8, platelet count 293, sodium was 143, potassium was 5.4, chloride was 117, CO2 was 22, BUN was 53, creatinine was 2.94. No report of any further rectal bleeding; we will continue to monitor H&H closely and transfuse when needed 10/31/2019 patient is seen and evaluatedin follow-up in the intensive care unit. He is awake and alert in no acute distress. His hemoglobin was 6.6 earlier this morning. He is receiving his fourth unit of packed red blood cells in total this admission. He did undergo an EGD this morning and was found to have a large adherent clot along the duodenal sweep which was removed. A deep ulcerati on with active bleeding was visible. Epinephrine and Endo Clip placement obtained good hemostasis. There are large clots in the stomach. NG tube remains in place. He remains on Protonix 40 mg every 12 hours. Surgical consult was placed. He is currently afebrile. Hemodynamically stable. He is on 10 L high flow nasal cannula to maintain O2 saturations in the mid 90s. 0.9 normal saline at 50 MLS per hour. Remains on Unasyn. Chest x-ray shows some evidence of fluid volume overload and small effusions. White count 5.1. Creatinine 2.77. patient's family is at bedside and on inquiring about transferring the patient to [place]; did advise and son that patient is unstable at this time and family will have to discuss this with case management on Saturday11/01/2019 Patient is seen and evaluated in the room at bedside; patient has been having profuse rectal bleeding; patient underwent EGD which showed bleeding duodenal ulcer, Endo Clip was applied; patient had an episode of dark stools during the night but started bleeding profusely this afternoon; stat H&H is done which shows hemoglobin at 6.0; patient has been started on IV Levophed to maintain blood pressure; patient was evaluated by GI, ICU team and surgery and was recommended transferred to a tertiary care center; [facility] was consulted and transfer arrangements to [facility] surgical ICU were made; patient was deemed unstable for transfer and is taken to OR by the surgical team. 11/02/2019 patient wasadmitted to the hospital with upper GI bleed and was found have duodenal ulcer. due to active bleeding patient was taken to operating room for exploratory laparotomy. Postoperatively patient was intubated. Patient is currently remained on mechanical ventilator. chest x-ray showed bilateral pleural effusions mainly right side with atelectatic changes. Patient is on Levothroid drip and his IV FLUIDS. HEMOGLOBIN8.8, potassium 5.7, BUN/creatinine 46/ 2.89 11/03/2019 Patient iscurrentlyremained on mechanical ventilator. Hemoglobin 7.1 today. Patient initially received 8 units of PRBC transfusion preoperatively.Patient is still requiring pressor support on and off. Patient is currently on NG tube. TPN is being started today. chest x-ray showed improvement of atelectatic changes in the lung bases and small pleural effusion. patient has been afebrile. No abdominal distention. Surgical wound is intact. No leukocytosis. bUN/creatinine 43 x 3.13 11/04/2019 Patient is currently on mechanical ventilator. Postoperative day 3. Status post laparotomy and oversewing of duodenal ulcer. patient is currently on TPN. patient is on sedation holiday and is easily arousable. Hemoglobin is fairly stable at 7.9 today. No further episodes of GI bleed.Chest x-ray showed bilateral pleural effusions worse on the right. Ultrasound of the kidneys showed no evidence ofhydronephrosis. Creatinine level isimproving to 2.8 today.Pulmonary and GI is following. 11 05 2019 patient is postoperative day 4, status post laparotomy and oversewing of the urinalysis. Hemoglobin did improve to 8.7 today.patient is being continued on IV Lasix due to pleural effusion. Currently on norepinephrinewhich is being weaned off slowly. Patient is stable at creatinine level II.8.no signs of active GI bleed. IVELISSE drain is in place. Patient is being prepared for weaning prior.patient has been afebrile.Chest x- ray showedoverall stable findingssmall to moderate size right greater than left pleural effus with mild central vascular congestion. 11/06/2019 Patient was successfully extubated yesterday. Currently postoperative day 5. Status post exploratorylaparotomy and oversewing of duodenal ulcer. Hemoglobin is stable and improving at 9.8 today. Creatinine level is 3.03. p eripheral edema is improv patient was diuresing well vascular congestion. Currently onoxygen nasal canula. patient wants to eat Swallow evaluation is pending.currently on TPN chest x-ray showed bilateral pleural effusions right greater than left Patient has been Afebrile 11/07/2019 Patient denied any complaints of abdominal pain. Hemoglobin is stable and improved to 9.7. Hemodynamically stable. Off pressor support. Status post explored laparotomy and oversewing of duodenal ulcer due to GI bleed. Patient was extubated. urrently patient is tolerating clear liquids. Does have generalized weakness Is improving. Currently on IV Lasix. Chest x-ray showed improvement in volume status without any significant abnormalities. Mild pulmonary vascular congestion without yaya pulmonary laura a. patient has been afebrile.patient is awake alert and oriented. sometimes paranoid.still on TPN for nutritional support. Currently maintaining sinus rhythm. 11/08/2019 Patient is awake alert but confused. Tolerating liquids. No complaints of nausea or vomiting. Patient is still on TPN. Hemoglobin is at 8.6 today. Patient is status post exploratory laparotomy and oversewing of duodenal ulce r.postoperative 7 The patient had several runs of SVT yesterday with a heart rate ranging between 140 and 160. He was given adenosine which converted him and subsequently went back. Following that, the patient was started on amiodarone drip which put him in sinus rhythm and the drip is still running at 0.5 mg per KG per minute. continued onIV Lasix.leg swelling is improving. Patient has been afebrile. Currently on antibiotics in the form of Zosyn and Diflucan. Chest x-ray showedimproved infiltrates. 11/09/2019 Patient is postoperative day 8 status post explorative laparotomy and or seeing of duodenal ulcer. Hemoglobin level improved to 9.6 now. Patient's mental status is much improved compared to yesterday. Less confused today. Tolerating oral diet and is being advanced. BUE and is 42 and creatinine 2.17. Currently on oxygen via nasal cannula 6 L. Chest x-ray showed atelectasis at bases. Patient was on IV Lasix due to pleural effusion. SVT was resolved. Patient was given Adenosine yesterday. patient is being transferred to medical floor today. The pressure is still elev ated. Continued on metoprolol and Norvasc. Added hydralazineas per his home dose. Currently on antibiotics in the form of Zosyn and Diflucan. 11/16/2019 Patient is currently lying in the bed. Complains of generalized weakness and fatigue. Hemoglobin level is 6.8 today. 1 unit of PRBC blood transfusion was ordered. There is patient is still requiring high flow oxygen with another cannula. Patient was given IV Lasix. Otherwise patient is tolerating oral diet. Denied any nausea or vomiting. No abdominal pain. Denied any dark colored bowel movements. No complaints of chest pain. No fever no chills. Pulmonary and general surgery is following. Current medications reviewed. Objective - Vital Signs Vital signs: Vital Signs Temp 98.6 F 11/16/19 15:00 Pulse 68 11/16/19 15:36 Resp 20 11/16/19 15:16 BP 120/57 11/16/19 15:00 Pulse Ox 95 11/16/19 15:00 Intake & Output 11/15/19 11/16/19 11/16/19 18:59 06:59 18:59 Intake Total 012 45 6577 Output Total 975 675 400 Balance -285 -615 860 Weight 89 kg 89 kg Intake: IV 30 60 50 Invasive Line 1 30 60 50 Oral 660 900 Blood Product 310 Rc Pheresis 2 As3 Unit 310 [id number] Output: Urine 975 675 400 Other: Voiding Method Indwelling Catheter Indwelling Catheter Indwelling Catheter # Voids 0 3 # Bowel Movements 1 2 ABP, PAP, CO, CI - Last Documented Arterial Blood Pressure 168/55 - Exam PHYSICAL EXAMINATION: Patient is lying in the bed comfortably, no acute distress, awake alert and oriented. lethargic and very weak.. more awake and oriented today. HEENT: Normocephalic. Neck is supple. Pupils reactive. Nostrils clear. Oral cavity is moist. Ears reveal no drainage. Neck reveals no JVD, carotid bruits, or thyromegaly. CHEST EXAMINATION: Trachea is central. Symmetrical expansion. bibasilar diminished air entry and crackles. No wheezing.. CARDIAC: Normal S1, S2 with no gallops. No murmurs ABDOMEN: Soft. Bowel sounds normal. No organomegaly. No abdominal bruits. Extremities:2+ edema. No clubbing or cyanosis Neurologically awake, alert, oriented x3 paranoid sometimes. Able to move extremities while in bed. No focal deficits noted Skin: No rash or skin lesions. Psychiatric: Coperative. could not be assessed completely. Musculoskeletal: No joint swelling or deformity. - Labs CBC & Chem 7: 11/16/19 16:00 11/16/19 05:55 Labs: Abnormal Lab Results - Last 24 Hours (Table) 11/15/19 11/16/19 11/16/19 Range/Units 20:56 05:55 05:55 RBC 2.34 L (4.30-5.90) m/uL Hgb 6.9 L* (13.0-17.5) gm/dL Hct 21.4 L (39.0-53.0) % Lymphocytes # (1.0-4.8) k/uL Chloride 108 H (98-107) mmol/L BUN 41 H (9-20) mg/dL Creatinine 3.32 H (0.66-1.25) mg/dL Glucose 102 H (74-99) mg/dL POC Glucose (mg/dL) 147 H (75-99) mg/dL Calcium 8.0 L (8.4-10.2) mg/dL Iron (65-175) ug/dL TIBC (228-460) ug/dL % Saturation (15.00-50.00) Ferritin (22.0-322.0) ng/mL Crossmatch 11/16/19 11/16/19 11/16/19 Range/Units 05:55 06:17 09:41 RBC 2.32 L (4.30-5.90) m/uL Hgb 6.8 L* (13.0-17.5) gm/dL Hct 21.0 L (39.0-53.0) % Lymphocytes # (1.0-4.8) k/uL Chloride (98-107) mmol/L BUN (9-20) mg/dL Creatinine (0.66-1.25) mg/dL Glucose (74-99) mg/dL POC Glucose (mg/dL) 118 H (75-99) mg/dL Calcium (8.4-10.2) mg/dL Iron 11 L (65-175) ug/dL TIBC 173 L (228-460) ug/dL % Saturation 6.36 L (15.00-50.00) Ferritin 426.8 H (22.0-322.0) ng/mL Crossmatch 11/16/19 11/16/19 11/16/19 Range/Units 09:46 11:37 16:00 RBC 2.75 L (4.30-5.90) m/uL Hgb 8.2 L (13.0-17.5) gm/dL Hct 24.9 L (39.0-53.0) % Lymphocytes # 0.8 L (1.0-4.8) k/uL Chloride (98-107) mmol/L BUN (9-20) mg/dL Creatinine (0.66-1.25) mg/dL Glucose (74-99) mg/dL POC Glucose (mg/dL) 148 H (75-99) mg/dL Calcium (8.4-10.2) mg/dL Iron (65-175) ug/dL TIBC (228-460) ug/dL % Saturation (15.00-50.00) Ferritin (22.0-322.0) ng/mL Crossmatch See Detail 11/16/19 Range/Units 16:12 RBC (4.30-5.90) m/uL Hgb (13.0-17.5) gm/dL Hct (39.0-53.0) % Lymphocytes # (1.0-4.8) k/uL Chloride (98-107) mmol/L BUN (9-20) mg/dL Creatinine (0.66-1.25) mg/dL Glucose (74-99) mg/dL POC Glucose (mg/dL) 148 H (75-99) mg/dL Calcium (8.4-10.2) mg/dL Iron (65-175) ug/dL TIBC (228-460) ug/dL % Saturation (15.00-50.00) Ferritin (22.0-322.0) ng/mL Crossmatch Assessment and Plan Assessment: Acute blood loss anemia secondary to duodenal ulcer. Status post exploratory laparotomy and oversewing of duodenal ulcer on 11 01 2019 - Patient is status post EGD/colonoscopy which revealed duodenal ulcer without any active bleeding with the large interior clot in the second portion of duodenum; colonoscopy revealed ischemic colitis and left colon. Patient is presently on Protonix IV twice a day -Acute hypoxic respiratory failure with bilateral pleural effusion and atelectasis. Currently on mechanical ventilator.extubated on 11 05 2019 -coronary artery disease continue with metoprolol hold off aspirin because of GI bleed -Hypertension patient is presently hypotensive secondary to GI bleed holding off on lisinopril, hydralazine. -acute kidney injury. Possible ATN. Creatinine today is 3.03 -acute blood loss anemia due to GI bleed. 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 -PTSD and paranoid ideation. -Continued nicotine use: -DVT prophylaxis with SCDs due to GI leed plan: patient is currently extubated and weaned off frompressor support.continued on IV diuresis due to pleural effusion. Monitor renal function.improving currently. continue with antibioticsin the form ofZosyn and Diflucan.. Continue with Protonix. started on oral diet. passed Swallow evaluation. advance diet as tolerated. Was on TPN. pulmonary and General surgery is following.prognosis is guarded at this time.discussed with his at bedside. Time with Patient: Greater than 30
--- NOTE | 2019-11-17 23:21 | P.PN ---
Subjective Progress Note Date: 11/17/19 Principal diagnosis: GI bleed; status post EGD/colonoscopy Duodenal ulcer/ischemic colitis 10/30/2017 patient seen in follow-up in the intensive care unit; patient's family is at bedside and had multiple questions which were all addressed to her satisfaction; patient is status post EGD/colonoscopy which revealed a duodenal ulcer, that was not actively bleeding with a large anterior and clot in the second portion of the duodenum. Colonoscopy revealed ischemic colitis in the left colon with biopsies taken. However the procedure had to be aborted related to poor prep. Lab review shows hemoglobin is 6.8, patient has had 2 units of blood already, and he is receiving an additional unit of blood this morning. Hemodynamically patient is stable, receiving IV fluids, with 0.9 normal saline at a rate of 100 ML per hour. He remains on high flow oxygen, at 10 L and his pulse ox is 92- 93%. Complaints of chest pain, patient does have exertional dyspnea, today's chest x-ray has been reviewed, showing bibasilar atelectasis and bilateral pleural effusions. Patient is still getting IV fluids at a rate of 100, we will turn it was down, and give the patient a dose of IV Lasix, today's labs have been reviewed, showing white blood cell count 8.3, hemoglobin of 6.8, platelet count 293, sodium was 143, potassium was 5.4, chloride was 117, CO2 was 22, BUN was 53, creatinine was 2.94. No report of any further rectal bleeding; we will continue to monitor H&H closely and transfuse when needed 10/31/2019 patient is seen and evaluatedin follow-up in the intensive care unit. He is awake and alert in no acute distress. His hemoglobin was 6.6 earlier this morning. He is receiving his fourth unit of packed red blood cells in total this admission. He did undergo an EGD this morning and was found to have a large adherent clot along the duodenal sweep which was removed. A deep ulcerati on with active bleeding was visible. Epinephrine and Endo Clip placement obtained good hemostasis. There are large clots in the stomach. NG tube remains in place. He remains on Protonix 40 mg every 12 hours. Surgical consult was placed. He is currently afebrile. Hemodynamically stable. He is on 10 L high flow nasal cannula to maintain O2 saturations in the mid 90s. 0.9 normal saline at 50 MLS per hour. Remains on Unasyn. Chest x-ray shows some evidence of fluid volume overload and small effusions. White count 5.1. Creatinine 2.77. patient's family is at bedside and on inquiring about transferring the patient to [place]; did advise and son that patient is unstable at this time and family will have to discuss this with case management on Saturday11/01/2019 Patient is seen and evaluated in the room at bedside; patient has been having profuse rectal bleeding; patient underwent EGD which showed bleeding duodenal ulcer, Endo Clip was applied; patient had an episode of dark stools during the night but started bleeding profusely this afternoon; stat H&H is done which shows hemoglobin at 6.0; patient has been started on IV Levophed to maintain blood pressure; patient was evaluated by GI, ICU team and surgery and was recommended transferred to a tertiary care center; [facility] was consulted and transfer arrangements to [facility] surgical ICU were made; patient was deemed unstable for transfer and is taken to OR by the surgical team. 11/02/2019 patient wasadmitted to the hospital with upper GI bleed and was found have duodenal ulcer. due to active bleeding patient was taken to operating room for exploratory laparotomy. Postoperatively patient was intubated. Patient is currently remained on mechanical ventilator. chest x-ray showed bilateral pleural effusions mainly right side with atelectatic changes. Patient is on Levothroid drip and his IV FLUIDS. HEMOGLOBIN8.8, potassium 5.7, BUN/creatinine 46/ 2.89 11/03/2019 Patient iscurrentlyremained on mechanical ventilator. Hemoglobin 7.1 today. Patient initially received 8 units of PRBC transfusion preoperatively.Patient is still requiring pressor support on and off. Patient is currently on NG tube. TPN is being started today. chest x-ray showed improvement of atelectatic changes in the lung bases and small pleural effusion. patient has been afebrile. No abdominal distention. Surgical wound is intact. No leukocytosis. bUN/creatinine 43 x 3.13 11/04/2019 Patient is currently on mechanical ventilator. Postoperative day 3. Status post laparotomy and oversewing of duodenal ulcer. patient is currently on TPN. patient is on sedation holiday and is easily arousable. Hemoglobin is fairly stable at 7.9 today. No further episodes of GI bleed.Chest x-ray showed bilateral pleural effusions worse on the right. Ultrasound of the kidneys showed no evidence ofhydronephrosis. Creatinine level isimproving to 2.8 today.Pulmonary and GI is following. 11 05 2019 patient is postoperative day 4, status post laparotomy and oversewing of the urinalysis. Hemoglobin did improve to 8.7 today.patient is being continued on IV Lasix due to pleural effusion. Currently on norepinephrinewhich is being weaned off slowly. Patient is stable at creatinine level II.8.no signs of active GI bleed. IVELISSE drain is in place. Patient is being prepared for weaning prior.patient has been afebrile.Chest x- ray showedoverall stable findingssmall to moderate size right greater than left pleural effus with mild central vascular congestion. 11/06/2019 Patient was successfully extubated yesterday. Currently postoperative day 5. Status post exploratorylaparotomy and oversewing of duodenal ulcer. Hemoglobin is stable and improving at 9.8 today. Creatinine level is 3.03. p eripheral edema is improv patient was diuresing well vascular congestion. Currently onoxygen nasal canula. patient wants to eat Swallow evaluation is pending.currently on TPN chest x-ray showed bilateral pleural effusions right greater than left Patient has been Afebrile 11/07/2019 Patient denied any complaints of abdominal pain. Hemoglobin is stable and improved to 9.7. Hemodynamically stable. Off pressor support. Status post explored laparotomy and oversewing of duodenal ulcer due to GI bleed. Patient was extubated. urrently patient is tolerating clear liquids. Does have generalized weakness Is improving. Currently on IV Lasix. Chest x-ray showed improvement in volume status without any significant abnormalities. Mild pulmonary vascular congestion without yaya pulmonary laura a. patient has been afebrile.patient is awake alert and oriented. sometimes paranoid.still on TPN for nutritional support. Currently maintaining sinus rhythm. 11/08/2019 Patient is awake alert but confused. Tolerating liquids. No complaints of nausea or vomiting. Patient is still on TPN. Hemoglobin is at 8.6 today. Patient is status post exploratory laparotomy and oversewing of duodenal ulce r.postoperative 7 The patient had several runs of SVT yesterday with a heart rate ranging between 140 and 160. He was given adenosine which converted him and subsequently went back. Following that, the patient was started on amiodarone drip which put him in sinus rhythm and the drip is still running at 0.5 mg per KG per minute. continued onIV Lasix.leg swelling is improving. Patient has been afebrile. Currently on antibiotics in the form of Zosyn and Diflucan. Chest x-ray showedimproved infiltrates. 11/09/2019 Patient is postoperative day 8 status post explorative laparotomy and or seeing of duodenal ulcer. Hemoglobin level improved to 9.6 now. Patient's mental status is much improved compared to yesterday. Less confused today. Tolerating oral diet and is being advanced. BUE and is 42 and creatinine 2.17. Currently on oxygen via nasal cannula 6 L. Chest x-ray showed atelectasis at bases. Patient was on IV Lasix due to pleural effusion. SVT was resolved. Patient was given Adenosine yesterday. patient is being transferred to medical floor today. The pressure is still elev ated. Continued on metoprolol and Norvasc. Added hydralazineas per his home dose. Currently on antibiotics in the form of Zosyn and Diflucan. 11/16/2019 Patient is currently lying in the bed. Complains of generalized weakness and fatigue. Hemoglobin level is 6.8 today. 1 unit of PRBC blood transfusion was ordered. There is patient is still requiring high flow oxygen with another cannula. Patient was given IV Lasix. Otherwise patient is tolerating oral diet. Denied any nausea or vomiting. No abdominal pain. Denied any dark colored bowel movements. No complaints of chest pain. No fever no chills. Pulmonary and general surgery is following. 8 11/17/2019 Patient is currently sitting on the side of the bed in the chair. Still requiring oxygen high flow. On airvo 70% FiO2 otherwise hemoglobin level increased to 8.2 status post 1 unit of PRBC transfusion. No complaints of naus ea vomiting abdominal pain. No diarrhea or dysuria. Patient has been afebrile. Denied any abdominal pain. Patient is tolerating oral diet. No complaints of chest pain or worsening shortness of breath. Active Medications Acetaminophen (Tylenol Tab) 650 mg PO Q6HR PRN PRN Reason: Fever and/ or Pain Last Admin: 11/17/19 03:59 Dose: 650 mg Documented by: Albuterol/Ipratropium (Duoneb 0.5 Mg-3 Mg/3 Ml Soln) 3 ml INHALATION RT-QID [facility] Last Admin: 11/17/19 19:00 Dose: 3 ml Documented by: Amiodarone HCl (Cordarone) 200 mg PO BID [facility] Last Admin: 11/17/19 21:19 Dose: 200 mg Documented by: Amlodipine Besylate (Norvasc) 10 mg PO DAILY [facility] Last Admin: 11/17/19 09:42 Dose: 10 mg Documented by: Artificial Tears (Artificial Tear Drops) 1 drops BOTH EYES QID PRN PRN Reason: Dry Eye(s) Last Admin: 11/12/19 08:10 Dose: 1 drops Documented by: Atorvastatin Calcium (Lipitor) 10 mg PO HS [facility] Last Admin: 11/17/19 21:19 Dose: 10 mg Documented by: Bisacodyl (Dulcolax) 10 mg RECTAL DAILY PRN PRN Reason: Constipation Budesonide (Pulmicort) 1 mg INHALATION RT-BID [facility] Last Admin: 11/17/19 19:00 Dose: 1 mg Documented by: Darbepoetin Corey (Aranesp) 40 mcg SQ Q7D [facility] Last Admin: 11/16/19 12:01 Dose: 40 mcg Documented by: Docusate Sodium (Colace) 100 mg PO DAILY PRN PRN Reason: Constipation Last Admin: 11/13/19 09:54 Dose: 100 mg Documented by: Fluconazole (Diflucan) 100 mg PO DAILY [facility] Last Admin: 11/17/19 09:42 Dose: 100 mg Documented by: Formoterol Fumarate (Perforomist) 20 mcg INHALATION RT-BID [facility] Last Admin: 11/17/19 19:00 Dose: 20 mcg Documented by: Haloperidol Lactate (Haldol) 1 mg IVP Q8HR PRN PRN Reason: Agitation or Acute Psychosis Last Admin: 11/08/19 11:37 Dose: 1 mg Documented by: Hydralazine HCl (Apresoline) 100 mg PO TID [facility] Last Admin: 11/17/19 21:20 Dose: Not Given Documented by: Sodium Chloride (Saline 0.9%) 1,000 mls @ 20 mls/hr IV .Q24H [facility] Last Admin: 11/17/19 17:52 Dose: 20 mls/hr Documented by: Piperacillin Sod/Tazobactam (Sod 3.375 gm/ Sodium Chloride) 100 mls @ 25 mls/hr IVPB Q12H [facility] Last Admin: 11/17/19 12:20 Dose: 25 mls/hr Documented by: Insulin Aspart (Novolog) 0 unit SQ ACHS [facility]; Protocol Last Admin: 11/17/19 21:19 Dose: 4 unit Documented by: Levothyroxine Sodium (Synthroid) 125 mcg PO DAILY@0630 [facility] Last Admin: 11/17/19 06:52 Dose: 125 mcg Documented by: Lidocaine (Lidoderm) 1 patch TOPICAL DAILY [facility] Last Admin: 11/17/19 17:51 Dose: 1 patch Documented by: Linagliptin (Tradjenta) 5 mg PO DAILY [facility] Last Admin: 11/17/19 09:43 Dose: 5 mg Documented by: Metoprolol Tartrate (Lopressor) 50 mg PO TID [facility] Last Admin: 11/17/19 21:19 Dose: Not Given Documented by: Miscellaneous Information (Potassium Per Protocol) 1 each MISCELLANE DAILY PRN; Protocol PRN Reason: Per Protocol Miscellaneous Information (Magnesium Per Protocol) 1 each MISCELLANE DAILY PRN; Protocol PRN Reason: Per Protocol Miscellaneous Information (Phosphorus Per Protocol) 1 each MISCELLANE DAILY PRN; Protocol PRN Reason: Per Protocol Naloxone HCl (Narcan) 0.2 mg IV Q2M PRN PRN Reason: Opioid Reversal Nicotine (Habitrol 14mg/24hr Patch) 1 patch TRANSDERM DAILY [facility] Last Admin: 11/17/19 09:37 Dose: 1 patch Documented by: Pantoprazole Sodium (Protonix) 40 mg IV BID [facility] Last Admin: 11/17/19 21:19 Dose: 40 mg Documented by: Pregabalin (Lyrica) 50 mg PO BID [facility] Last Admin: 11/17/19 21:19 Dose: 50 mg Documented by: Objective - Vital Signs Vital signs: Vital Signs Temp 97.7 F 11/17/19 15:00 Pulse 62 11/17/19 19:25 Resp 18 11/17/19 15:00 BP 112/55 11/17/19 15:00 Pulse Ox 93 L 11/17/19 11:09 Intake & Output 11/17/19 11/17/19 11/18/19 06:59 18:59 06:59 Intake Total 720 Output Total 650 100 Balance -650 620 Weight 92 kg Intake: Oral 720 Output: Urine 650 100 Other: Voiding Method Indwelling Catheter Indwelling Catheter # Voids 1 # Bowel Movements 2 1 ABP, PAP, CO, CI - Last Documented Arterial Blood Pressure 168/55 - Exam PHYSICAL EXAMINATION: Patient is lying in the bed comfortably, no acute distress, awake alert and oriented. lethargic and very weak.. more awake and oriented today. HEENT: Normocephalic. Neck is supple. Pupils reactive. Nostrils clear. Oral cavity is moist. Ears reveal no drainage. Neck reveals no JVD, carotid bruits, or thyromegaly. CHEST EXAMINATION: Trachea is central. Symmetrical expansion. bibasilar diminished air entry and crackles. No wheezing.. CARDIAC: Normal S1, S2 with no gallops. No murmurs ABDOMEN: Soft. Bowel sounds normal. No organomegaly. No abdominal bruits. Extremities:2+ edema. No clubbing or cyanosis Neurologically awake, alert, oriented x3 paranoid sometimes. Able to move extremities while in bed. No focal deficits noted Skin: No rash or skin lesions. Psychiatric: Coperative. could not be assessed completely. Musculoskeletal: No joint swelling or deformity. - Labs CBC & Chem 7: 11/16/19 16:00 11/16/19 05:55 Labs: Abnormal Lab Results - Last 24 Hours (Table) 11/16/19 11/17/19 11/17/19 Range/Units 20:47 06:26 11:14 POC Glucose (mg/dL) 182 H 132 H 159 H (75-99) mg/dL 11/17/19 Range/Units 17:00 POC Glucose (mg/dL) 202 H (75-99) mg/dL Assessment and Plan Assessment: Acute blood loss anemia secondary to duodenal ulcer. Status post exploratory laparotomy and oversewing of duodenal ulcer on 11 01 2019 - Patient is status post EGD/colonoscopy which revealed duodenal ulcer without any active bleeding with the large interior clot in the second portion of duodenum; colonoscopy revealed ischemic colitis and left colon. Patient is presently on Protonix IV twice a day -Acute hypoxic respiratory failure with bilateral pleural effusion and atelectasis. Currently on mechanical ventilator.extubated on 11 05 2019 -coronary artery disease continue with metoprolol hold off aspirin because of GI bleed -Hypertension patient is presently hypotensive secondary to GI bleed holding off on lisinopril, hydralazine. -acute kidney injury. Possible ATN. Creatinine today is 3.03 -acute blood loss anemia due to GI bleed. 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 -PTSD and paranoid ideation. -Continued nicotine use: -DVT prophylaxis with SCDs due to GI leed plan: patient is currently extubated and weaned off frompressor support.continued on IV diuresis due to pleural effusion. Monitor renal function.improving currently. continue with antibioticsin the form ofZosyn and Diflucan.. Continue with Protonix. started on oral diet. passed Swallow evaluation. advance diet as tolerated. Was on TPN. pulmonary and General surgery is following.prognosis is guarded at this time.discussed with his at bedside. Time with Patient: Greater than 30
[2019-11-18 03:53] LABS: Glucose,Whole Blood 281 mg/dL (75-99)
[2019-11-18 04:14] LABS: Glucose,Whole Blood 305 mg/dL (75-99)
[2019-11-18] MEDS ORDERED: FUROSEMIDE 10 MG/ML 10 ML VIAL IV STA (04:37)
[2019-11-18 04:38] LABS: ABG Base Excess -3.8 mmol/L; ABG HCO3 24 mmol/L (21-25); ABG Oxygen Saturation 97.1 % (94-97); ABG PCO2 61 mmHg (35-45); ABG PH 7.21 (7.35-7.45); ABG PO2 99 mmHg (83-108); ABG TCO2 26 mmol/L (19-24); Allen Test Performed? Yes
--- NOTE | 2019-11-18 04:38 | XR ---
EXAMINATION TYPE: XR chest 1V portable DATE OF EXAM: 11/18/2019 COMPARISON: 11/16/2019 HISTORY: Short of breath TECHNIQUE: Single view FINDINGS: There is pulmonary edema. There is moderate blunting right costophrenic angle. Endotracheal tube is 2 cm from the lois. There are chest leads. There is nasogastric tube. There is mild atelec tasis in both lower lung gallo. IMPRESSION: Congestive heart failure with right pleural effusion slightly worse than last exam. Incre ased pulmonary edema.
[2019-11-18 04:39] LABS: Basophils # (A) 0.1 k/uL (0-0.2); Basophils % (A) 1 %; Eosinophils # (A) 0.2 k/uL (0-0.7); Eosinophils % (A) 1 %; HCT 26.8 % (39.0-53.0); HGB 8.4 gm/dL (13.0-17.5); Hypochromasia Moderate; Lymphocytes # (A) 3.4 k/uL (1.0-4.8); Lymphocytes % (A) 30 %; MCH 28.9 pg (25.0-35.0); MCHC 31.3 g/dL (31.0-37.0); MCV 92.2 fL (80.0-100.0); Mean Platelet Volume 8.1; Monocytes # (A) 0.3 k/uL (0-1.0); Monocytes % (A) 3 %; Neutrophils # (A) 7.2 k/uL (1.3-7.7); Neutrophils % (A) 62 %; Platelet Count 236 k/uL (150-450); RDW 15.6 % (11.5-15.5); WBC 11.6 k/uL (3.8-10.6)
[2019-11-18 04:46] LABS: Calcium 8.2 mg/dL (8.4-10.2); Phosphorus 7.3 mg/dL (2.5-4.5)
[2019-11-18] MEDS ORDERED: SODIUM CHLORIDE 0.9% 1,000 ML IV ONE ×2 (04:48→06:06)
[2019-11-18] MEDS: PROPOFOL 1,000 MG in EMPTY BAG 1 BAG IV SCH ×3 (04:50→20:47)
--- NOTE | 2019-11-18 04:51 | P.EN ---
Code blue was activated , patient was unresponsive, no pulse, asystole on the monitor CPR initiated following ACLS protocol , ROCS after 8 min , one round of Epi was given , patient intubated and trasnferred to ICU primary team notified family notified orders in for Labs, CBC, Mg, CMP, d dimer CXR showed bilateral pleural effusion , pending official read. EKG showed no acute ST changes post ROCS most recent Echocardiogram showed normal left vent EF. 11/02/19 patient has prolonged hospital stay due to GI bleeding , duodenal ulcers. patient was extubated on 11/05/19 patient has been kept in the hospital due to increase oxygen requirement , and worsening renal function trial of one dose of lasix 60 mg IV. critical care time spent in the care of this patient was 35 minutes.
[2019-11-18] MEDS: LEVOTHYROXINE 125 MCG TAB PO SCH (06:09)
[2019-11-18] MEDS: BUDESONIDE 1 MG/2 ML NEBU INHALATION SCH ×2 (07:53→19:01)
[2019-11-18] MEDS: IPRATROPIUM-ALBUTEROL 3 ML NEB INHALATION SCH ×5 (07:53→23:19)
[2019-11-18] MEDS: FORMOTEROL FUMARATE 20 MCG/2 ML NEBU INHALATION SCH ×2 (07:53→19:01)
[2019-11-18 08:29] LABS: Glucose,Whole Blood 201 mg/dL (75-99)
[2019-11-18 09:04] LABS: Amorphous Sediment,Urine Rare /hpf; Appearance,Urine Turbid (Clear); Bacteria,Urine Many /hpf; Bilirubin,Urine Negative (Negative); Blood,Urine Moderate (Negative); Color,Urine Yellow; Glucose,Urine (UA) Trace (Negative); Ketones,Urine Trace (Negative); Leukocyte Esterase,Urine Large (Negative); Nitrite,Urine Negative (Negative); PH, Urine 5.5 (5.0-8.0); Protein,Urine 2+ (Negative); RBC,Urine 88 /hpf (0-5); Specific Gravity,Urine 1.024 (1.001-1.035); Urobilinogen,Urine <2.0 mg/dL (<2.0); WBC,Urine >182 /hpf (0-5)
[2019-11-18] MEDS: INSULIN ASPART (NovoLOG) 100 UNIT/ML VIAL SQ SCH ×4 (09:04→23:59)
[2019-11-18] MEDS: CHLORHEXIDINE GLUCONATE 15 ML CUP MUCOUS MEM SCH ×2 (09:05→20:48)
[2019-11-18] MEDS: PANTOPRAZOLE 40 MG/10 ML VIAL IV SCH ×2 (09:05→20:48)
[2019-11-18] MEDS: NICOTINE 14MG/24HR PATCH TRANSDERM SCH (09:05)
[2019-11-18] MEDS: AMIODARONE 200 MG TAB PO SCH ×2 (10:16→19:48)
[2019-11-18] MEDS: FLUCONAZOLE 100 MG TAB PO SCH (10:17)
[2019-11-18] MEDS: amLODIPine 10 MG TAB PO SCH (10:17)
[2019-11-18] MEDS: METOPROLOL TARTRATE 50 MG TAB PO SCH ×3 (10:18→19:48)
[2019-11-18] MEDS: LINAGLIPTIN 5 MG TABLET PO SCH (10:18)
[2019-11-18] MEDS: PREGABALIN 50 MG CAP PO SCH ×2 (10:18→19:49)
[2019-11-18] MEDS: LIDOCAINE 5% PATCH TOPICAL SCH (10:18)
[2019-11-18] MEDS: hydrALAZINE HCL 50 MG TAB PO SCH (10:19)
--- NOTE | 2019-11-18 11:16 | P.PN ---
Subjective Progress Note Date: 11/18/19 Seen and examined for the follow-up of acute kidney injury. Overnight had cardiopulmonary arrest at the down time was 8 minutes. Currently intubated on a ventilator. FiO2 of 100%. No urine output since morning. Objective - Vital Signs Vital signs: Vital Signs Temp 98.1 F 11/18/19 08:00 Pulse 55 L 11/18/19 10:00 Resp 20 11/18/19 10:00 BP 101/45 11/18/19 10:00 Pulse Ox 99 11/18/19 10:00 Intake & Output 11/17/19 11/18/19 11/18/19 18:59 06:59 18:59 Intake Total 720 1000 1206.12 Output Total 100 400 295 Balance 620 600 911.12 Intake: IV 1000 1000 Sodium Chloride 0.9% 1, 1000 1000 000 ml @ 999 mls/hr IV . Q1H1M [facility] Rx#:[id number] Intake, IV Titration 206.12 Amount Propofol 1,000 mg In 56.12 Empty Bag 1 bag @ Titrate IV .Q0M [facility] Rx#: [id number] Sodium Chloride 0.9% 1, 150 000 ml @ 75 mls/hr IV . [id number] [facility] Rx#:[id number] Oral 720 Output: Gastric Drainage 285 Urine 100 400 10 Other: Voiding Method Indwelling Catheter Indwelling Catheter Indwelling Catheter # Voids 1 1 # Bowel Movements 1 ABP, PAP, CO, CI - Last Documented Arterial Blood Pressure 168/55 - Exam No acute distress S1-S2 heard Oral intubation Cohen No edema - Labs CBC & Chem 7: 11/18/19 04:20 11/18/19 04:20 Labs: Abnormal Lab Results - Last 24 Hours (Table) 11/17/19 11/17/19 11/17/19 Range/Units 11:14 17:00 20:16 WBC (3.8-10.6) k/uL RBC (4.30-5.90) m/uL Hgb (13.0-17.5) gm/dL Hct (39.0-53.0) % RDW (11.5-15.5) % D-Dimer (<0.60) mg/L FEU ABG pH (7.35-7.45) ABG pCO2 (35-45) mmHg ABG Total CO2 (19-24) mmol/L ABG O2 Saturation (94-97) % ABG Lactic Acid (0.5-1.6) mmol/L BUN (9-20) mg/dL Creatinine (0.66-1.25) mg/dL Glucose (74-99) mg/dL POC Glucose (mg/dL) 159 H 202 H 252 H (75-99) mg/dL Calcium (8.4-10.2) mg/dL Phosphorus (2.5-4.5) mg/dL Urine Protein (Negative) Urine Glucose (UA) (Negative) Urine Ketones (Negative) Urine Blood (Negative) Ur Leukocyte Esterase (Negative) Urine RBC (0-5) /hpf Urine WBC (0-5) /hpf Urine WBC Clumps (None) /hpf Amorphous Sediment (None) /hpf Urine Bacteria (None) /hpf 11/18/19 11/18/19 11/18/19 Range/Units 03:51 04:13 04:20 WBC 11.6 H (3.8-10.6) k/uL RBC 2.90 L (4.30-5.90) m/uL Hgb 8.4 L (13.0-17.5) gm/dL Hct 26.8 L (39.0-53.0) % RDW 15.6 H (11.5-15.5) % D-Dimer (<0.60) mg/L FEU ABG pH (7.35-7.45) ABG pCO2 (35-45) mmHg ABG Total CO2 (19-24) mmol/L ABG O2 Saturation (94-97) % ABG Lactic Acid (0.5-1.6) mmol/L BUN (9-20) mg/dL Creatinine (0.66-1.25) mg/dL Glucose (74-99) mg/dL POC Glucose (mg/dL) 281 H 305 H (75-99) mg/dL Calcium (8.4-10.2) mg/dL Phosphorus (2.5-4.5) mg/dL Urine Protein (Negative) Urine Glucose (UA) (Negative) Urine Ketones (Negative) Urine Blood (Negative) Ur Leukocyte Esterase (Negative) Urine RBC (0-5) /hpf Urine WBC (0-5) /hpf Urine WBC Clumps (None) /hpf Amorphous Sediment (None) /hpf Urine Bacteria (None) /hpf 11/18/19 11/18/19 11/18/19 Range/Units 04:20 04:20 04:20 WBC (3.8-10.6) k/uL RBC (4.30-5.90) m/uL Hgb (13.0-17.5) gm/dL Hct (39.0-53.0) % RDW (11.5-15.5) % D-Dimer 11.43 H (<0.60) mg/L FEU ABG pH (7.35-7.45) ABG pCO2 (35-45) mmHg ABG Total CO2 (19-24) mmol/L ABG O2 Saturation (94-97) % ABG Lactic Acid 2.9 H* (0.5-1.6) mmol/L BUN 46 H (9-20) mg/dL Creatinine 4.59 H (0.66-1.25) mg/dL Glucose 278 H (74-99) mg/dL POC Glucose (mg/dL) (75-99) mg/dL Calcium 8.2 L (8.4-10.2) mg/dL Phosphorus 7.3 H (2.5-4.5) mg/dL Urine Protein (Negative) Urine Glucose (UA) (Negative) Urine Ketones (Negative) Urine Blood (Negative) Ur Leukocyte Esterase (Negative) Urine RBC (0-5) /hpf Urine WBC (0-5) /hpf Urine WBC Clumps (None) /hpf Amorphous Sediment (None) /hpf Urine Bacteria (None) /hpf 11/18/19 11/18/19 11/18/19 Range/Units 04:29 08:08 08:28 WBC (3.8-10.6) k/uL RBC (4.30-5.90) m/uL Hgb (13.0-17.5) gm/dL Hct (39.0-53.0) % RDW (11.5-15.5) % D-Dimer (<0.60) mg/L FEU ABG pH 7.21 L (7.35-7.45) ABG pCO2 61 H (35-45) mmHg ABG Total CO2 26 H (19-24) mmol/L ABG O2 Saturation 97.1 H (94-97) % ABG Lactic Acid (0.5-1.6) mmol/L BUN (9-20) mg/dL Creatinine (0.66-1.25) mg/dL Glucose (74-99) mg/dL POC Glucose (mg/dL) 201 H (75-99) mg/dL Calcium (8.4-10.2) mg/dL Phosphorus (2.5-4.5) mg/dL Urine Protein 2+ H (Negative) Urine Glucose (UA) Trace H (Negative) Urine Ketones Trace H (Negative) Urine Blood Moderate H (Negative) Ur Leukocyte Esterase Large H (Negative) Urine RBC 88 H (0-5) /hpf Urine WBC >182 H (0-5) /hpf Urine WBC Clumps Few H (None) /hpf Amorphous Sediment Rare H (None) /hpf Urine Bacteria Many H (None) /hpf Microbiology - Last 24 Hours (Table) 11/18/19 04:05 Sputum Culture - Preliminary Sputum Assessment and Plan Assessment: #1 acute kidney injury secondary to ischemic ATN from hemodynamic instability. #2 acute GI bleed status post exploratory laparotomy secondary to duodenal ulcer. #3 A. fib with RVR currently controlled #4 chronic kidney disease, unknown baseline #5 diabetes #6 status post cardiopulmonary arrest. Plan: #1 creeping creatinine secondary to ischemic ATN with cardiopulmonary arrest. #2 avoid nephrotoxic agents and hypotensive episodes. #3 with oliguria, discussed with the family at bedside if creatinine continues to worsen might need dialysis..
[2019-11-18] MEDS ORDERED: CISATRACURIUM 2 MG/ML 5 ML VIAL IV ONE (11:40)
[2019-11-18] MEDS: SODIUM CHLORIDE 0.9% 1,000 ML IV SCH ×2 (11:55→23:59)
--- NOTE | 2019-11-18 12:46 | PN ---
PROGRESS NOTE PULMONARY/CRITICAL CARE PROGRESS NOTE: DATE OF SERVICE: November 18, 2019 Critical care time is 36 minutes. This is a gentleman who is 79 years of age. He just turned 79 during this hospitalization. He was admitted way back on October 28. He came with an acute GI bleed and blood-loss anemia. The patient was last seen by our group on November 10. He was on the medical general medical floor at that time. He was awake and alert. No distress. He was not complaining of any shortness of breath or difficulty breathing and was on 4 L. Saturations were in the low 90s. He apparently did have an episode of atrial fibrillation with RVR. The patient's GI bleed got quite severe. He went to the operating room on November 01 for a duodenal bleed. The patient had an over-sewing of a duodenal ulcer by Dr. Gifford. The patient did reasonably well afterwards and was finally extubated from mechanical ventilation on the . He was initially intubated for surgery on November 01. So, he had a 5 day stay on the ventilator. More recently, sometime after midnight, the patient sustained a brief episode of cardiopulmonary arrest. The circumstances are not clear. He had cardiopulmonary resuscitation and return of spontaneous circulation. He did receive some epinephrine IV as well as chest compressions. The patient was intubated at that time and transferred to the ICU. He is currently in the intensive care unit on the volume assist-control mode rate of 20, tidal volume 500, FiO2 100% with a PEEP of 5. Blood gases show pO2 of 99, pCO2 61, pH 7.21. Those blood gases were done on the same settings except the rate of 16. The rate was bumped up to 20 to correct for the respiratory acidosis. The patient is also on saline at 75 mL an hour, propofol at 25 mcg/kg per minute, but he is not receiving any pressors at this time. The patient will need an art line and triple-lumen catheter. Also, because of the patient's prolonged hospitalization and recent episode of cardiopulmonary arrest, transfer to an outside institution may be appropriate. We were attempting to transfer the patient before his GI bleeding became so massive, but unfortunately he needed surgery on the and that precluded transfer at that time. Anyway, we will have a discussion with the family about that as well as with code status. PHYSICAL EXAMINATION: VITAL SIGNS: Current vital signs are reviewed. His temperature is 98.1, his heart rate 60, respiratory rate 20, blood pressure 101/45, mean 63 saturations are 99%. Appears in no acute distress. Currently sedated. Oral endotracheal tube and NG tube noted. HEENT examination is grossly unremarkable. NECK: Supple. Full range of motion. No adenopathy. CARDIOVASCULAR examination reveals regular rhythm and rate. Heart rate about 60 beats per minute. Heart sounds are distant. LUNGS: Reveal mostly clear breath sounds. A few scattered rhonchi. Breath sounds equal. ABDOMEN: Soft. Bowel sounds are not noted. EXTREMITIES are intact. Edema is noted. SKIN: Without rash. NEUROLOGIC: Examination could not be adequately assessed given his current level of sedation on propofol at 25 mcg/kg per minute. Apparently prior to this, he was doing well, but since we signed off on this patient on November 10, I do not really know that to be a fact. LABS: Reviewed. White count 11.6, hemoglobin 8.4, hematocrit 26.8, platelet count 336,000. D-dimer is 11.43. His blood gases have been noted. Sodium 141, potassium 4, chloride 107, CO2 23, anion gap is 11, BUN and creatinine were 46 and 4.59. Her urine looks to be infected. It is yellow and turbid. There is 2+ protein. Blood is moderate. Leukocyte esterase was large positive. WBCs were greater than 182, bacteria were many. Chest x-ray from the first is noted. Chest x-ray shows cardiomegaly and bilateral pleural effusions, right greater than left. There also may be some infiltrates or atelectasis at the lung bases. MEDICATIONS: Medications are reviewed. ASSESSMENT: 1. Status post cardiopulmonary arrest with cardiopulmonary resuscitation and return of spontaneous circulation, of unclear etiology. The patient is currently vented and in the intensive care unit. 2. History of acute blood loss anemia, related to upper GI bleed. The patient has previously received 9 units of PRBCs and 1 unit of fresh frozen plasma on admission. The patient is status post exploratory laparotomy with over-sewing of the duodenal ulcer. 3. History of duodenal ulcer with acute gastrointestinal bleed. 4. Possible ischemic colitis. 5. History of fluid overload. 6. Lactic acidemia. 7. History of sleep apnea syndrome. 8. History of hyperlipidemia. 9. History of hypothyroidism. 10.Benign essential hypertension by history. 11.Diabetes mellitus. 12.Degenerative joint disease. 13.Chronic tobacco dependence. 14.Posttraumatic stress disorder. PLAN: Again, previously we had signed off the patient on November 10. He is now back on our list because he is here in the ICU. We are going to talk to the family about a number of things, including code status, transfer to an outside institution at [facility] and the insertion of a triple-lumen catheter and an art line. A triple-lumen catheter was placed way back on the day of admission October 28. It does need to come out and does need to be cultured. In addition, a repeat blood gas will be done. We will review his medications. His IV will run at 75 mL an hour. He is on propofol for sedation. No additional recommendations are made at this time. Prognosis is very guarded. Critical care time 36 minutes. BHAVNA / CADEN: [id number] /
[2019-11-18] MEDS: PIPERACILLIN-TAZOBACTAM 3.375 GM in SODIUM CHLORIDE 0.9% 100 ML IVPB SCH ×2 (12:48→23:59)
[2019-11-18 12:50] LABS: Glucose,Whole Blood 136 mg/dL (75-99)
--- NOTE | 2019-11-18 13:05 | XR ---
EXAMINATION TYPE: XR chest 1V portable DATE OF EXAM: 11/18/2019 COMPARISON: 11/18/2019 HISTORY: Status post central line placement. Shortness of breath. TECHNIQUE: Single frontal view of the chest is obtained. FINDINGS: Improved aeration of the lungs in comparison to the prior. Right-sided central venous cath eter appears similar in position to the prior as do the enteric and endotracheal tubes. Cardiomediast inal silhouette is again enlarged. Blunting of the costophrenic angles. IMPRESSION: Continued improvement of fluid overload with trace pleural effusions and bibasilar airsp edson disease.
[2019-11-18 13:14] LABS: ABG Base Excess -0.5 mmol/L; ABG HCO3 24 mmol/L (21-25); ABG Oxygen Saturation 99.6 % (94-97); ABG PCO2 40 mmHg (35-45); ABG PO2 198 mmHg (83-108); ABG TCO2 26 mmol/L (19-24); Allen Test Performed? Yes
--- NOTE | 2019-11-18 13:50 | PCN ---
PROCEDURE NOTE PROCEDURE PERFORMED: Left internal jugular triple-lumen catheter. PREOP DIAGNOSIS: Administration of fluids and pressors. POSTOP DIAGNOSIS: Administration of fluids and pressors. OPERATORS: Dr. Bradshaw and Dr. Ward TRIPLE LUMEN CATHETER PLACEMENT: Indication: Hemodynamic monitoring/Intravenous access. A time-out was completed verifying correct patient, procedure, site, positioning, and implant(s) or special equipment if applicable. The patient was placed in a dependent position appropriate for triple lumen catheter placement based on the vein to be cannulated. The patient's left neck was prepped and draped in sterile fashion. 1% Lidocaine was used to anesthetize the surrounding skin area. A triple lumen 9F Cordis catheter was introduced into the internal jugular vein using Seldinger technique. The catheter was threaded smoothly over the guide wire and appropriate blood return was obtained. Each lumen of the catheter was evacuated of air and flushed with sterile saline. The catheter was then sutured in place to the skin and a sterile dressing applied. Perfusion to the extremity distal to the point of catheter insertion was checked and found to be adequate. The catheter was placed without difficulty. There was good blood return from all 3 ports. The tip of the catheter was noted to be in the superior vena cava/right atrium junction. The catheter was sutured in place. Sterile dressing was applied by the nurse. There was good blood return from all 3 ports. Chest x-ray was ordered. There was no immediate complication. Additional recommendations and suggestions are forthcoming. MMODL / IJN: [id number] /
--- NOTE | 2019-11-18 13:50 | PCN ---
PROCEDURE NOTE PROCEDURE PERFORMED: Arterial line insertion. DATE OF SERVICE: November 18, 2019. PROCEDURE: A left radial arterial line insertion. ARTERIAL LINE PLACEMENT: Indications: Hemodynamic monitoring. A time-out was completed verifying correct patient, procedure, site, positioning, and implant(s) or special equipment if applicable. Maik's test was performed to ensure adequate perfusion. The patient's left wrist was prepped and draped in sterile fashion. 1% Lidocaine was used to anesthetize the area. An 18G Arrow arterial line was introduced into the radial artery. The catheter was threaded over the guide wire and the needle was removed with appropriate pulsatile blood return. Blood loss was minimal. The catheter was then sutured in place to the skin and a sterile dressing applied. Perfusion to the extremity distal to the point of catheter insertion was checked and found to be adequate. The patient tolerated the procedure well and there were no complications. MMODL / IJN: [id number] /
--- NOTE | 2019-11-18 15:07 | P.PN ---
Subjective Progress Note Date: 11/18/19 CHIEF COMPLAINT: Bleeding duodenal ulcer HISTORY OF PRESENT ILLNESS: The patient is a 79-year-old male status post control of duodenal ulcer via exploratory laparotomy. Yesterday patient had been stable however overnight became unresponsive. [facility] blue team dispatched. Patient transferred to intensive care unit. Patient has baseline poor pulmonary status. He had received at least 1 unit of blood transfusion in the last 24-48 hours. He is on full ventilatory support. His family is at bedside. Discussion of NO CODE currently being reviewed with family. Overall, kidneys are failing. Per , "he never wants to be on dialysis." NGT without blood. ROS: No fevers or chills. No overt signs of bleeding. He had a bowel movement yesterday. PHYSICAL EXAM: VITAL SIGNS: Reviewed CONSTITUTIONAL: Well developed and in no acute distress. EYES: Conjuctivae without sclera icterus. Extraocular movements grossly intact. HEAD, EARS, NOSE, THROAT: Moist buccal mucosa. Head is atraumatic, normoc ephalic. Hears conversational speech. No nasal drainage. NECK: Supple. No thyroidomegaly. RESPIRATORY: Non-labored respirations and equal bilateral excursions. Mechanical ventilation CARDIOVASCULAR: Palpable 2+ radial pulses. ABDOMEN:Soft. No peritonitis. MUSCULOSKELETAL: No gross deformity of the lower extremities noted. No clubbing. No cyanosis. SKIN: Good skin turgor. Well perfused. NEUROLOGIC: Cranial nerves I through XII grossly intact. No focal or lateralizing signs. PSYCH: Appropriate affect. Alert and oriented to person, place and time. CLINICAL LABS: White blood cell count elevated over 11,000. Hemoglobin up from 8.2-8.4. Lactic acid elevated at 2.9 Creatinine elevated over 3.3-4.6 RADIOLOGY: X-rays chest x-ray demonstrates worsening pulmonary edema including large right pleural effusion ASSESSMENT: 1. Acute blood loss edema due to bleeding duodenal ulcer 2. Status post multiple transfusions, 9 units 3. 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 Diabetes type 2, uncontrolled, complications diabetic nephropathy 5. Chronic atrial fibrillation 6. Acute on chronic renal failure 7. Lactic acidosis 8. Large right pleural effusion including pulmonary edema PLAN: 1. Recommend continued critical care assessment secondary to worsening kidney function including pulmonary status 2. Overall patient in guarded condition with new events 3. Patient has volume overload which would benefit from Lasix and nephrology assessment 4. NO CODE being discussed by critical care team. Objective - Vital Signs Vital signs: Vital Signs Temp 98.1 F 11/18/19 08:00 Pulse 55 L 11/18/19 10:00 Resp 20 11/18/19 10:00 BP 101/45 11/18/19 10:00 Pulse Ox 99 11/18/19 10:00 Intake & Output 11/17/19 11/18/19 11/18/19 18:59 06:59 18:59 Intake Total 720 1000 1206.12 Output Total 100 400 295 Balance 620 600 911.12 Intake: IV 1000 1000 Sodium Chloride 0.9% 1, 1000 1000 000 ml @ 999 mls/hr IV . Q1H1M ONE Rx#:[id number] Intake, IV Titration 206.12 Amount Propofol 1,000 mg In 56.12 Empty Bag 1 bag @ Titrate IV .Q0M TAY Rx#: [id number] Sodium Chloride 0.9% 1, 150 000 ml @ 75 mls/hr IV . [id number] [facility] Rx#:[id number] Oral 720 Output: Gastric Drainage 285 Urine 100 400 10 Other: Voiding Method Indwelling Catheter Indwelling Catheter Indwelling Catheter # Voids 1 1 # Bowel Movements 1 ABP, PAP, CO, CI - Last Documented Arterial Blood Pressure 168/55 - Labs CBC & Chem 7: 11/18/19 04:20 11/18/19 04:20 Labs: Abnormal Lab Results - Last 24 Hours (Table) 11/17/19 11/17/19 11/17/19 Range/Units 11:14 17:00 20:16 WBC (3.8-10.6) k/uL RBC (4.30-5.90) m/uL Hgb (13.0-17.5) gm/dL Hct (39.0-53.0) % RDW (11.5-15.5) % D-Dimer (<0.60) mg/L FEU ABG pH (7.35-7.45) ABG pCO2 (35-45) mmHg ABG Total CO2 (19-24) mmol/L ABG O2 Saturation (94-97) % ABG Lactic Acid (0.5-1.6) mmol/L BUN (9-20) mg/dL Creatinine (0.66-1.25) mg/dL Glucose (74-99) mg/dL POC Glucose (mg/dL) 159 H 202 H 252 H (75-99) mg/dL Calcium (8.4-10.2) mg/dL Phosphorus (2.5-4.5) mg/dL Urine Protein (Negative) Urine Glucose (UA) (Negative) Urine Ketones (Negative) Urine Blood (Negative) Ur Leukocyte Esterase (Negative) Urine RBC (0-5) /hpf Urine WBC (0-5) /hpf Urine WBC Clumps (None) /hpf Amorphous Sediment (None) /hpf Urine Bacteria (None) /hpf 11/18/19 11/18/19 11/18/19 Range/Units 03:51 04:13 04:20 WBC 11.6 H (3.8-10.6) k/uL RBC 2.90 L (4.30-5.90) m/uL Hgb 8.4 L (13.0-17.5) gm/dL Hct 26.8 L (39.0-53.0) % RDW 15.6 H (11.5-15.5) % D-Dimer (<0.60) mg/L FEU ABG pH (7.35-7.45) ABG pCO2 (35-45) mmHg ABG Total CO2 (19-24) mmol/L ABG O2 Saturation (94-97) % ABG Lactic Acid (0.5-1.6) mmol/L BUN (9-20) mg/dL Creatinine (0.66-1.25) mg/dL Glucose (74-99) mg/dL POC Glucose (mg/dL) 281 H 305 H (75-99) mg/dL Calcium (8.4-10.2) mg/dL Phosphorus (2.5-4.5) mg/dL Urine Protein (Negative) Urine Glucose (UA) (Negative) Urine Ketones (Negative) Urine Blood (Negative) Ur Leukocyte Esterase (Negative) Urine RBC (0-5) /hpf Urine WBC (0-5) /hpf Urine WBC Clumps (None) /hpf Amorphous Sediment (None) /hpf Urine Bacteria (None) /hpf 11/18/19 11/18/19 11/18/19 Range/Units 04:20 04:20 04:20 WBC (3.8-10.6) k/uL RBC (4.30-5.90) m/uL Hgb (13.0-17.5) gm/dL Hct (39.0-53.0) % RDW (11.5-15.5) % D-Dimer 11.43 H (<0.60) mg/L FEU ABG pH (7.35-7.45) ABG pCO2 (35-45) mmHg ABG Total CO2 (19-24) mmol/L ABG O2 Saturation (94-97) % ABG Lactic Acid 2.9 H* (0.5-1.6) mmol/L BUN 46 H (9-20) mg/dL Creatinine 4.59 H (0.66-1.25) mg/dL Glucose 278 H (74-99) mg/dL POC Glucose (mg/dL) (75-99) mg/dL Calcium 8.2 L (8.4-10.2) mg/dL Phosphorus 7.3 H (2.5-4.5) mg/dL Urine Protein (Negative) Urine Glucose (UA) (Negative) Urine Ketones (Negative) Urine Blood (Negative) Ur Leukocyte Esterase (Negative) Urine RBC (0-5) /hpf Urine WBC (0-5) /hpf Urine WBC Clumps (None) /hpf Amorphous Sediment (None) /hpf Urine Bacteria (None) /hpf 11/18/19 11/18/19 11/18/19 Range/Units 04:29 08:08 08:28 WBC (3.8-10.6) k/uL RBC (4.30-5.90) m/uL Hgb (13.0-17.5) gm/dL Hct (39.0-53.0) % RDW (11.5-15.5) % D-Dimer (<0.60) mg/L FEU ABG pH 7.21 L (7.35-7.45) ABG pCO2 61 H (35-45) mmHg ABG Total CO2 26 H (19-24) mmol/L ABG O2 Saturation 97.1 H (94-97) % ABG Lactic Acid (0.5-1.6) mmol/L BUN (9-20) mg/dL Creatinine (0.66-1.25) mg/dL Glucose (74-99) mg/dL POC Glucose (mg/dL) 201 H (75-99) mg/dL Calcium (8.4-10.2) mg/dL Phosphorus (2.5-4.5) mg/dL Urine Protein 2+ H (Negative) Urine Glucose (UA) Trace H (Negative) Urine Ketones Trace H (Negative) Urine Blood Moderate H (Negative) Ur Leukocyte Esterase Large H (Negative) Urine RBC 88 H (0-5) /hpf Urine WBC >182 H (0-5) /hpf Urine WBC Clumps Few H (None) /hpf Amorphous Sediment Rare H (None) /hpf Urine Bacteria Many H (None) /hpf Assessment and Plan (1) 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 Current Visit: Yes Status: Acute Code(s): E11.22 - TYPE 2 DIABETES MELLITUS W DIABETIC CHRONIC KIDNEY DISEASE; N18.4 - CHRONIC KIDNEY DISEASE, STAGE 4 (SEVERE) SNOMED Code(s): 651246085 (2) Diabetes type 2, uncontrolled Current Visit: Yes Status: Acute Code(s): E11.65 - TYPE 2 DIABETES MELLITUS WITH HYPERGLYCEMIA SNOMED Code(s): 566049024 (3) Hypertensive heart disease Current Visit: Yes Status: Acute Code(s): I11.9 - HYPERTENSIVE HEART DISEASE WITHOUT HEART FAILURE SNOMED Code(s): 68938240 (4) Acute blood loss anemia Current Visit: Yes Status: Acute Code(s): D62 - ACUTE POSTHEMORRHAGIC ANEMIA SNOMED Code(s): 429990703 (5) Bleeding duodenal ulcer Current Visit: Yes Status: Acute Code(s): K26.4 - CHRONIC OR UNSPECIFIED DUODENAL ULCER WITH HEMORRHAGE SNOMED Code(s): 73313073 (6) Pulmonary edema Current Visit: Yes Status: Acute Code(s): J81.1 - CHRONIC PULMONARY EDEMA SNOMED Code(s): 36585902 (7) Cardiac arrest due to respiratory disorder Current Visit: Yes Status: Acute Code(s): J98.9 - RESPIRATORY DISORDER, UN SPECIFIED; I46.8 - CARDIAC ARREST DUE TO OTHER UNDERLYING CONDITION SNOMED Code(s): 805404199 (8) Acute renal failure Current Visit: Yes Status: Acute Code(s): N17.9 - ACUTE KIDNEY FAILURE, UNSPECIFIED SNOMED Code(s): 86987719
[2019-11-18] MEDS ORDERED: SODIUM CHLORIDE 0.9% 2,000 ML IV ONE (15:33)
[2019-11-18 18:45] LABS: Glucose,Whole Blood 111 mg/dL (75-99)
[2019-11-18] MEDS: NOREPINEPHRINE 4 MG in SODIUM CHLORIDE 0.9% 250 ML IV SCH (20:47)
--- NOTE | 2019-11-18 23:51 | P.PN ---
Subjective Progress Note Date: 11/18/19 Principal diagnosis: GI bleed; status post EGD/colonoscopy Duodenal ulcer/ischemic colitis 10/30/2017 patient seen in follow-up in the intensive care unit; patient's family is at bedside and had multiple questions which were all addressed to her satisfaction; patient is status post EGD/colonoscopy which revealed a duodenal ulcer, that was not actively bleeding with a large anterior and clot in the second portion of the duodenum. Colonoscopy revealed ischemic colitis in the left colon with biopsies taken. However the procedure had to be aborted related to poor prep. Lab review shows hemoglobin is 6.8, patient has had 2 units of blood already, and he is receiving an additional unit of blood this morning. Hemodynamically patient is stable, receiving IV fluids, with 0.9 normal saline at a rate of 100 ML per hour. He remains on high flow oxygen, at 10 L and his pulse ox is 92- 93%. Complaints of chest pain, patient does have exertional dyspnea, today's chest x-ray has been reviewed, showing bibasilar atelectasis and bilateral pleural effusions. Patient is still getting IV fluids at a rate of 100, we will turn it was down, and give the patient a dose of IV Lasix, today's labs have been reviewed, showing white blood cell count 8.3, hemoglobin of 6.8, platelet count 293, sodium was 143, potassium was 5.4, chloride was 117, CO2 was 22, BUN was 53, creatinine was 2.94. No report of any further rectal bleeding; we will continue to monitor H&H closely and transfuse when needed 10/31/2019 patient is seen and evaluatedin follow-up in the intensive care unit. He is awake and alert in no acute distress. His hemoglobin was 6.6 earlier this morning. He is receiving his fourth unit of packed red blood cells in total this admission. He did undergo an EGD this morning and was found to have a large adherent clot along the duodenal sweep which was removed. A deep ulcerati on with active bleeding was visible. Epinephrine and Endo Clip placement obtained good hemostasis. There are large clots in the stomach. NG tube remains in place. He remains on Protonix 40 mg every 12 hours. Surgical consult was placed. He is currently afebrile. Hemodynamically stable. He is on 10 L high flow nasal cannula to maintain O2 saturations in the mid 90s. 0.9 normal saline at 50 MLS per hour. Remains on Unasyn. Chest x-ray shows some evidence of fluid volume overload and small effusions. White count 5.1. Creatinine 2.77. patient's family is at bedside and on inquiring about transferring the patient to [place]; did advise and son that patient is unstable at this time and family will have to discuss this with case management on Saturday11/01/2019 Patient is seen and evaluated in the room at bedside; patient has been having profuse rectal bleeding; patient underwent EGD which showed bleeding duodenal ulcer, Endo Clip was applied; patient had an episode of dark stools during the night but started bleeding profusely this afternoon; stat H&H is done which shows hemoglobin at 6.0; patient has been started on IV Levophed to maintain blood pressure; patient was evaluated by GI, ICU team and surgery and was recommended transferred to a tertiary care center; [facility] was consulted and transfer arrangements to [facility] surgical ICU were made; patient was deemed unstable for transfer and is taken to OR by the surgical team. 11/02/2019 patient wasadmitted to the hospital with upper GI bleed and was found have duodenal ulcer. due to active bleeding patient was taken to operating room for exploratory laparotomy. Postoperatively patient was intubated. Patient is currently remained on mechanical ventilator. chest x-ray showed bilateral pleural effusions mainly right side with atelectatic changes. Patient is on Levothroid drip and his IV FLUIDS. HEMOGLOBIN8.8, potassium 5.7, BUN/creatinine 46/ 2.89 11/03/2019 Patient iscurrentlyremained on mechanical ventilator. Hemoglobin 7.1 today. Patient initially received 8 units of PRBC transfusion preoperatively.Patient is still requiring pressor support on and off. Patient is currently on NG tube. TPN is being started today. chest x-ray showed improvement of atelectatic changes in the lung bases and small pleural effusion. patient has been afebrile. No abdominal distention. Surgical wound is intact. No leukocytosis. bUN/creatinine 43 x 3.13 11/04/2019 Patient is currently on mechanical ventilator. Postoperative day 3. Status post laparotomy and oversewing of duodenal ulcer. patient is currently on TPN. patient is on sedation holiday and is easily arousable. Hemoglobin is fairly stable at 7.9 today. No further episodes of GI bleed.Chest x-ray showed bilateral pleural effusions worse on the right. Ultrasound of the kidneys showed no evidence ofhydronephrosis. Creatinine level isimproving to 2.8 today.Pulmonary and GI is following. 11 05 2019 patient is postoperative day 4, status post laparotomy and oversewing of the urinalysis. Hemoglobin did improve to 8.7 today.patient is being continued on IV Lasix due to pleural effusion. Currently on norepinephrinewhich is being weaned off slowly. Patient is stable at creatinine level II.8.no signs of active GI bleed. IVELISSE drain is in place. Patient is being prepared for weaning prior.patient has been afebrile.Chest x- ray showedoverall stable findingssmall to moderate size right greater than left pleural effus with mild central vascular congestion. 11/06/2019 Patient was successfully extubated yesterday. Currently postoperative day 5. Status post exploratorylaparotomy and oversewing of duodenal ulcer. Hemoglobin is stable and improving at 9.8 today. Creatinine level is 3.03. p eripheral edema is improv patient was diuresing well vascular congestion. Currently onoxygen nasal canula. patient wants to eat Swallow evaluation is pending.currently on TPN chest x-ray showed bilateral pleural effusions right greater than left Patient has been Afebrile 11/07/2019 Patient denied any complaints of abdominal pain. Hemoglobin is stable and improved to 9.7. Hemodynamically stable. Off pressor support. Status post explored laparotomy and oversewing of duodenal ulcer due to GI bleed. Patient was extubated. urrently patient is tolerating clear liquids. Does have generalized weakness Is improving. Currently on IV Lasix. Chest x-ray showed improvement in volume status without any significant abnormalities. Mild pulmonary vascular congestion without yaya pulmonary laura a. patient has been afebrile.patient is awake alert and oriented. sometimes paranoid.still on TPN for nutritional support. Currently maintaining sinus rhythm. 11/08/2019 Patient is awake alert but confused. Tolerating liquids. No complaints of nausea or vomiting. Patient is still on TPN. Hemoglobin is at 8.6 today. Patient is status post exploratory laparotomy and oversewing of duodenal ulce r.postoperative 7 The patient had several runs of SVT yesterday with a heart rate ranging between 140 and 160. He was given adenosine which converted him and subsequently went back. Following that, the patient was started on amiodarone drip which put him in sinus rhythm and the drip is still running at 0.5 mg per KG per minute. continued onIV Lasix.leg swelling is improving. Patient has been afebrile. Currently on antibiotics in the form of Zosyn and Diflucan. Chest x-ray showedimproved infiltrates. 11/09/2019 Patient is postoperative day 8 status post explorative laparotomy and or seeing of duodenal ulcer. Hemoglobin level improved to 9.6 now. Patient's mental status is much improved compared to yesterday. Less confused today. Tolerating oral diet and is being advanced. BUE and is 42 and creatinine 2.17. Currently on oxygen via nasal cannula 6 L. Chest x-ray showed atelectasis at bases. Patient was on IV Lasix due to pleural effusion. SVT was resolved. Patient was given Adenosine yesterday. patient is being transferred to medical floor today. The pressure is still elev ated. Continued on metoprolol and Norvasc. Added hydralazineas per his home dose. Currently on antibiotics in the form of Zosyn and Diflucan. 11/16/2019 Patient is currently lying in the bed. Complains of generalized weakness and fatigue. Hemoglobin level is 6.8 today. 1 unit of PRBC blood transfusion was ordered. There is patient is still requiring high flow oxygen with another cannula. Patient was given IV Lasix. Otherwise patient is tolerating oral diet. Denied any nausea or vomiting. No abdominal pain. Denied any dark colored bowel movements. No complaints of chest pain. No fever no chills. Pulmonary and general surgery is following. 11/17/2019 Patient is currently sitting on the side of the bed in the chair. Still requiring oxygen high flow. On airvo 70% FiO2 otherwise hemoglobin level increased to 8.2 status post 1 unit of PRBC transfusion. No complaints of nausea vomiting abdominal pain. No diarrhea or dysuria. Patient has been afebrile. Denied any abdominal pain. Patient is tolerating oral diet. No complaints of chest pain or worsening shortness of breath. 11/18/2019 Overnight patient had cardiopulmonary arrest with a down time of 8 minutes. Patient was intubated and is currently on mechanical ventilator. Chest x-ray showed worsening pulmonary edema and CHF. Otherwise patient's renal function is worsening with creatinine level went up to 4.59. Hemoglobin stable. No signs of active bleeding noted. Prognosis is guarded with worsening clinical status. Discussed with family at bedside. Pulmonary and nephrology is following.. Current medications reviewed. Active Medications Albuterol/Ipratropium (Duoneb 0.5 Mg-3 Mg/3 Ml Soln) 3 ml INHALATION RT-Q4H [facility] Last Admin: 11/18/19 23:19 Dose: 3 ml Documented by: Amiodarone HCl (Cordarone) 200 mg PO BID [facility] Last Admin: 11/18/19 19:48 Dose: Not Given Documented by: Artificial Tears (Artificial Tear Drops) 1 drops BOTH EYES QID PRN PRN Reason: Dry Eye(s) Last Admin: 11/12/19 08:10 Dose: 1 drops Documented by: Budesonide (Pulmicort) 1 mg INHALATION RT-BID [facility] Last Admin: 11/18/19 19:01 Dose: 1 mg Documented by: Chlorhexidine Gluconate (Peridex) 15 ml MUCOUS MEM BID [facility] Last Admin: 11/18/19 20:48 Dose: 15 ml Documented by: Darbepoetin Corey (Aranesp) 40 mcg SQ Q7D [facility] Last Admin: 11/16/19 12:01 Dose: 40 mcg Documented by: Formoterol Fumarate (Perforomist) 20 mcg INHALATION RT-BID [facility] Last Admin: 11/18/19 19:01 Dose: 20 mcg Documented by: Piperacillin Sod/Tazobactam (Sod 3.375 gm/ Sodium Chloride) 100 mls @ 25 mls/hr IVPB Q12H [facility] Last Admin: 11/18/19 12:48 Dose: 25 mls/hr Documented by: Propofol 1,000 mg/ IV Solution 100 mls @ 0 mls/hr IV .Q0M [facility]; Protocol Last Admin: 11/18/19 20:47 Dose: 25 mcg/kg/min, 13.8 mls/hr Documented by: Sodium Chloride (Saline 0.9%) 1,000 mls @ 75 mls/hr IV .[id number] [facility] Last Admin: 11/18/19 11:55 Dose: 75 mls/hr Documented by: Norepinephrine Bitartrate 4 mg (/ Sodium Chloride) 254 mls @ 17.526 mls/hr IV .[id number] [facility]; Protocol Last Titration: 11/18/19 22:14 Dose: 0.06 mcg/kg/min, 21.031 mls/hr Documented by: Insulin Aspart (Novolog) 0 unit SQ Q6H [facility]; Protocol Levothyroxine Sodium (Synthroid) 125 mcg PO DAILY@0630 [facility] Last Admin: 11/18/19 06:09 Dose: Not Given Documented by: Lidocaine (Lidoderm) 1 patch TOPICAL DAILY [facility] Last Admin: 11/18/19 10:18 Dose: Not Given Documented by: Metoprolol Tartrate (Lopressor) 50 mg PO TID [facility] Last Admin: 11/18/19 19:48 Dose: Not Given Documented by: Miscellaneous Information (Potassium Per Protocol) 1 each MISCELLANE DAILY PRN; Protocol PRN Reason: Per Protocol Miscellaneous Information (Magnesium Per Protocol) 1 each MISCELLANE DAILY PRN; Protocol PRN Reason: Per Protocol Miscellaneous Information (Phosphorus Per Protocol) 1 each MISCELLANE DAILY PRN; Protocol PRN Reason: Per Protocol Naloxone HCl (Narcan) 0.2 mg IV Q2M PRN PRN Reason: Opioid Reversal Nicotine (Habitrol 14mg/24hr Patch) 1 patch TRANSDERM DAILY [facility] Last Admin: 11/18/19 09:05 Dose: 1 patch Documented by: Pantoprazole Sodium (Protonix) 40 mg IV BID [facility] Last Admin: 11/18/19 20:48 Dose: 40 mg Documented by: Pregabalin (Lyrica) 50 mg PO BID [facility] Last Admin: 11/18/19 19:49 Dose: Not Given Documented by: Objective - Vital Signs Vital signs: Vital Signs Temp 98 F 11/18/19 20:00 Pulse 73 11/18/19 21:30 Resp 20 11/18/19 21:30 BP 94/48 11/18/19 14:00 Pulse Ox 94 L 11/18/19 21:30 Intake & Output 11/18/19 11/18/19 11/19/19 06:59 18:59 06:59 Intake Total 1000 3706.12 228.037 Output Total 400 400 85 Balance 600 3306.12 143.037 Intake: IV 1000 3000 225 Sodium Chloride 0.9% 1, 225 000 ml @ 75 mls/hr IV . [id number] [facility] Rx#:[id number] Sodium Chloride 0.9% 1, 1000 3000 000 ml @ 999 mls/hr IV . Q1H1M [facility] Rx#:[id number] Intake, IV Titration 706.12 3.037 Amount Norepinephrine 4 mg In 3.037 Sodium Chloride 0.9% 250 ml @ 0.05 MCG/KG/MIN 17. 526 mls/hr IV .[id number] [facility] Rx#:[id number] Piperacillin-Tazobactam 3 100 .375 gm In Sodium Chloride 0.9% 100 ml @ 25 mls/hr IVPB Q12H [facility] Rx# :[id number] Propofol 1,000 mg In 156.12 Empty Bag 1 bag @ Titrate IV .Q0M [facility] Rx#: [id number] Sodium Chloride 0.9% 1, 450 000 ml @ 75 mls/hr IV . [id number] [facility] Rx#:[id number] Output: Gastric Drainage 285 Urine 400 115 85 Other: Voiding Method Indwelling Catheter Indwelling Catheter # Voids 1 ABP, PAP, CO, CI - Last Documented Arterial Blood Pressure 141/40 - Exam PHYSICAL EXAMINATION: Patient is lying in the bed comfortably, on mechanical ventilator and sedated... HEENT: Normocephalic. Neck is supple. Pupils reactive. Nostrils clear. Oral cavity is moist. Ears reveal no drainage. Neck reveals no JVD, carotid bruits, or thyromegaly. CHEST EXAMINATION: Trachea is central. Symmetrical expansion. ET tube in place Bibasilar diminished air entry and scattered rhonchi. CARDIAC: Normal S1, S2 with no gallops. No murmurs ABDOMEN: Soft. Bowel sounds normal. No organomegaly. No abdominal bruits. Extremities: 1+ edema. No clubbing or cyanosis Neurologically sedated and intubated. No gross focal deficits noted Skin: No rash or skin lesions. Psychiatric: Could not be assessed Musculoskeletal: No joint swelling or deformity. - Labs CBC & Chem 7: 11/18/19 04:20 11/18/19 04:20 Labs: Abnormal Lab Results - Last 24 Hours (Table) 11/18/19 11/18/19 11/18/19 Range/Units 03:51 04:13 04:20 WBC 11.6 H (3.8-10.6) k/uL RBC 2.90 L (4.30-5.90) m/uL Hgb 8.4 L (13.0-17.5) gm/dL Hct 26.8 L (39.0-53.0) % RDW 15.6 H (11.5-15.5) % D-Dimer (<0.60) mg/L FEU ABG pH (7.35-7.45) ABG pCO2 (35-45) mmHg ABG pO2 (83-108) mmHg ABG Total CO2 (19-24) mmol/L ABG O2 Saturation (94-97) % ABG Lactic Acid (0.5-1.6) mmol/L BUN (9-20) mg/dL Creatinine (0.66-1.25) mg/dL Glucose (74-99) mg/dL POC Glucose (mg/dL) 281 H 305 H (75-99) mg/dL Calcium (8.4-10.2) mg/dL Phosphorus (2.5-4.5) mg/dL Urine Protein (Negative) Urine Glucose (UA) (Negative) Urine Ketones (Negative) Urine Blood (Negative) Ur Leukocyte Esterase (Negative) Urine RBC (0-5) /hpf Urine WBC (0-5) /hpf Urine WBC Clumps (None) /hpf Amorphous Sediment (None) /hpf Urine Bacteria (None) /hpf 11/18/19 11/18/19 11/18/19 Range/Units 04:20 04:20 04:20 WBC (3.8-10.6) k/uL RBC (4.30-5.90) m/uL Hgb (13.0-17.5) gm/dL Hct (39.0-53.0) % RDW (11.5-15.5) % D-Dimer 11.43 H (<0.60) mg/L FEU ABG pH (7.35-7.45) ABG pCO2 (35-45) mmHg ABG pO2 (83-108) mmHg ABG Total CO2 (19-24) mmol/L ABG O2 Saturation (94-97) % ABG Lactic Acid 2.9 H* (0.5-1.6) mmol/L BUN 46 H (9-20) mg/dL Creatinine 4.59 H (0.66-1.25) mg/dL Glucose 278 H (74-99) mg/dL POC Glucose (mg/dL) (75-99) mg/dL Calcium 8.2 L (8.4-10.2) mg/dL Phosphorus 7.3 H (2.5-4.5) mg/dL Urine Protein (Negative) Urine Glucose (UA) (Negative) Urine Ketones (Negative) Urine Blood (Negative) Ur Leukocyte Esterase (Negative) Urine RBC (0-5) /hpf Urine WBC (0-5) /hpf Urine WBC Clumps (None) /hpf Amorphous Sediment (None) /hpf Urine Bacteria (None) /hpf 11/18/19 11/18/19 11/18/19 Range/Units 04:29 08:08 08:28 WBC (3.8-10.6) k/uL RBC (4.30-5.90) m/uL Hgb (13.0-17.5) gm/dL Hct (39.0-53.0) % RDW (11.5-15.5) % D-Dimer (<0.60) mg/L FEU ABG pH 7.21 L (7.35-7.45) ABG pCO2 61 H (35-45) mmHg ABG pO2 (83-108) mmHg ABG Total CO2 26 H (19-24) mmol/L ABG O2 Saturation 97.1 H (94-97) % ABG Lactic Acid (0.5-1.6) mmol/L BUN (9-20) mg/dL Creatinine (0.66-1.25) mg/dL Glucose (74-99) mg/dL POC Glucose (mg/dL) 201 H (75-99) mg/dL Calcium (8.4-10.2) mg/dL Phosphorus (2.5-4.5) mg/dL Urine Protein 2+ H (Negative) Urine Glucose (UA) Trace H (Negative) Urine Ketones Trace H (Negative) Urine Blood Moderate H (Negative) Ur Leukocyte Esterase Large H (Negative) Urine RBC 88 H (0-5) /hpf Urine WBC >182 H (0-5) /hpf Urine WBC Clumps Few H (None) /hpf Amorphous Sediment Rare H (None) /hpf Urine Bacteria Many H (None) /hpf 11/18/19 11/18/19 11/18/19 Range/Units 12:39 13:11 18:33 WBC (3.8-10.6) k/uL RBC (4.30-5.90) m/uL Hgb (13.0-17.5) gm/dL Hct (39.0-53.0) % RDW (11.5-15.5) % D-Dimer (<0.60) mg/L FEU ABG pH (7.35-7.45) ABG pCO2 (35-45) mmHg ABG pO2 198 H (83-108) mmHg ABG Total CO2 26 H (19-24) mmol/L ABG O2 Saturation 99.6 H (94-97) % ABG Lactic Acid (0.5-1.6) mmol/L BUN (9-20) mg/dL Creatinine (0.66-1.25) mg/dL Glucose (74-99) mg/dL POC Glucose (mg/dL) 136 H 111 H (75-99) mg/dL Calcium (8.4-10.2) mg/dL Phosphorus (2.5-4.5) mg/dL Urine Protein (Negative) Urine Glucose (UA) (Negative) Urine Ketones (Negative) Urine Blood (Negative) Ur Leukocyte Esterase (Negative) Urine RBC (0-5) /hpf Urine WBC (0-5) /hpf Urine WBC Clumps (None) /hpf Amorphous Sediment (None) /hpf Urine Bacteria (None) /hpf Microbiology - Last 24 Hours (Table) 11/18/19 08:08 Urine Culture - Preliminary Urine,Voided 11/18/19 04:05 Gram Stain - Preliminary Sputum Sputum Culture - Preliminary Assessment and Plan Assessment: -Acute cardiopulmonary arrest. Status post CPR and that her asthma spontaneous circulation. Currently on mechanical ventilator. -Acute blood loss anemia secondary to duodenal ulcer. Status post exploratory laparotomy and oversewing of duodenal ulcer on 11 01 2019 Patient is status post EGD/colonoscopy which revealed duodenal ulcer without any active bleeding with the large interior clot in the second portion of duodenum; colonoscopy revealed ischemic colitis and left colon. Patient is presently on P rotonix twice a day -Acute hypoxic respiratory failure with bilateral pleural effusion and atelectas is. was on mechanical ventilator.extubated on 11 05 2019 -coronary artery disease continue with metoprolol hold off aspirin because of GI bleed -Hypertension patient is presently hypotensive secondary to GI bleed holding off on lisinopril, hydralazine. -acute kidney injury. Possible ATN. Creatinine today is 3.03 -acute blood loss anemia due to GI bleed. 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 -PTSD and paranoid ideation. -Continued nicotine use: -DVT prophylaxis with SCDs due to GI leed plan: patient is currently intubated and continue to acute cardiopulmonary arrest.. Monitor renal function due to worsening creatinine level. continue with antibioticsin the form ofZosyn and Diflucan.. Continue with Protonix. started on oral diet. passed Swallow evaluation. advance diet as tolerated. Wa s on TPN. pulmonary and General surgery is following.prognosis is guarded at this time.discussed with his at bedside. Time with Patient: Greater than 30
[2019-11-18 23:56] LABS: Glucose,Whole Blood 156 mg/dL (75-99)
[2019-11-19] MEDS: IPRATROPIUM-ALBUTEROL 3 ML NEB INHALATION SCH ×5 (03:16→20:01)
[2019-11-19] MEDS: PROPOFOL 1,000 MG in EMPTY BAG 1 BAG IV SCH (04:00)
[2019-11-19 05:03] LABS: ABG Base Excess -3.3 mmol/L; ABG HCO3 22 mmol/L (21-25); ABG Oxygen Saturation 97.3 % (94-97); ABG PCO2 37 mmHg (35-45); ABG PH 7.38 (7.35-7.45); ABG PO2 90 mmHg (83-108); ABG TCO2 23 mmol/L (19-24); Allen Test Performed? Yes
[2019-11-19 05:12] LABS: Calcium 7.3 mg/dL (8.4-10.2); Magnesium 1.8 mg/dL (1.6-2.3); Potassium 3.4 mmol/L (3.5-5.1)
[2019-11-19 05:53] LABS: Basophils % (A) 1 %; Eosinophils # (A) 0.1 k/uL (0-0.7); Eosinophils % (A) 1 %; Hypochromasia Slight; Lymphocytes % (A) 23 %; MCHC 32.4 g/dL (31.0-37.0); MCV 89.5 fL (80.0-100.0); Mean Platelet Volume 8.8; Monocytes # (A) 0.2 k/uL (0-1.0); Monocytes % (A) 4 %; Neutrophils # (A) 3.1 k/uL (1.3-7.7); Neutrophils % (A) 69 %; Platelet Count 173 k/uL (150-450); RDW 15.4 % (11.5-15.5); WBC 4.4 k/uL (3.8-10.6)
[2019-11-19] MEDS: LEVOTHYROXINE 125 MCG TAB PO SCH (05:55)
[2019-11-19 05:58] LABS: HCT 19.7 % (39.0-53.0); HGB 6.4 gm/dL (13.0-17.5)
[2019-11-19 06:00] LABS: Calcium 7.5 mg/dL (8.4-10.2); Magnesium 1.8 mg/dL (1.6-2.3); Phosphorus 5.2 mg/dL (2.5-4.5); Potassium 3.5 mmol/L (3.5-5.1)
[2019-11-19] MEDS: INSULIN ASPART (NovoLOG) 100 UNIT/ML VIAL SQ SCH ×3 (06:01→18:28)
[2019-11-19 06:04] LABS: Glucose,Whole Blood 134 mg/dL (75-99)
--- NOTE | 2019-11-19 08:19 | XR ---
EXAMINATION TYPE: XR chest 1V portable DATE OF EXAM: 11/19/2019 Comparison: 11/18/2019 Clinical History: 79-year-old male Tube placement Findings: ET and NG tubes satisfactory. Left CVC tip at the cavoatrial junction. Right heart margin partially o bscured by adjacent pleural parenchymal opacity. Heart upper limits of normal in size. Perihilar and interstitial densities persist. Small pleural effusions with right greater than left bibasilar opacit ies, relatively similar. Impression: Continued interstitial and patchy airspace opacities, possible CHF with interstitial edema. Continued small right greater than left pleural effusions with adjacent atelectasis and/or consolidat ion.
[2019-11-19] MEDS: BUDESONIDE 1 MG/2 ML NEBU INHALATION SCH ×2 (08:23→20:01)
[2019-11-19] MEDS: FORMOTEROL FUMARATE 20 MCG/2 ML NEBU INHALATION SCH ×2 (08:23→20:01)
--- NOTE | 2019-11-19 09:44 | P.PN ---
Subjective Patient is seen in follow-up for acute kidney injury. Renal function fairly stable compared to yesterday. Patient had an asystole cardiac arrest on November 17. Currently in the intensive care unit. Not on vasopressors at this time. Hemoglobin 6.4 today. No active bleeding. Urine output 25-30 mL an hour. Vital signs are stable. General: The patient appeared well nourished and normally developed. HEENT: Head exam is unremarkable. Neck is without jugular venous distension. Intubated. LUNGS: Breath sounds decreased. HEART: Rate and Rhythm are regular. First and second heart sounds normal. No murmurs, rubs or gallops. ABDOMEN: Abdominal exam reveals normal bowel sounds. Non-tender and non- distended. No evidence of peritonitis. EXTREMITITES: 1+ edema. Objective - Vital Signs Vital signs: Vital Signs Temp 98.4 F 11/19/19 09:24 Pulse 59 L 11/19/19 09:24 Resp 20 11/19/19 09:24 BP 130/38 11/19/19 09:24 Pulse Ox 99 11/19/19 09:24 Intake & Output 11/18/19 11/19/19 11/19/19 18:59 06:59 18:59 Intake Total 3706.12 1213.334 127.9 Output Total 400 515 30 Balance 3306.12 698.334 97.9 Intake: IV 3000 1000 75 Piperacillin-Tazobactam 3 100 .375 gm In Sodium Chloride 0.9% 100 ml @ 25 mls/hr IVPB Q12H [facility] Rx# :[id number] Sodium Chloride 0.9% 1, 900 75 000 ml @ 75 mls/hr IV . [id number] [facility] Rx#:[id number] Sodium Chloride 0.9% 1, 3000 000 ml @ 999 mls/hr IV . Q1H1M [facility] Rx#:[id number] Intake, IV Titration 706.12 213.334 52.9 Amount Norepinephrine 4 mg In 113.334 Sodium Chloride 0.9% 250 ml @ 0.05 MCG/KG/MIN 17. 526 mls/hr IV .[id number] [facility] Rx#:[id number] Piperacillin-Tazobactam 3 100 .375 gm In Sodium Chloride 0.9% 100 ml @ 25 mls/hr IVPB Q12H [facility] Rx# :[id number] Propofol 1,000 mg In 156.12 100.00 52.9 Empty Bag 1 bag @ Titrate IV .Q0M [facility] Rx#: [id number] Sodium Chloride 0.9% 1, 450 000 ml @ 75 mls/hr IV . [id number] [facility] Rx#:[id number] Blood Product 0 Rc Pheresis As-3 Unit 0 [id number] Output: Gastric Drainage 285 170 Urine 115 345 30 Other: Voiding Method Indwelling Catheter Indwelling Catheter ABP, PAP, CO, CI - Last Documented Arterial Blood Pressure 125/37 - Labs CBC & Chem 7: 11/19/19 05:20 11/19/19 05:20 Labs: Abnormal Lab Results - Last 24 Hours (Table) 11/16/19 11/18/19 11/18/19 Range/Units 09:46 12:39 13:11 RBC (4.30-5.90) m/uL Hgb (13.0-17.5) gm/dL Hct (39.0-53.0) % ABG pO2 198 H (83-108) mmHg ABG Total CO2 26 H (19-24) mmol/L ABG O2 Saturation 99.6 H (94-97) % Potassium (3.5-5.1) mmol/L Chloride (98-107) mmol/L Carbon Dioxide (22-30) mmol/L BUN (9-20) mg/dL Creatinine (0.66-1.25) mg/dL Glucose (74-99) mg/dL POC Glucose (mg/dL) 136 H (75-99) mg/dL Calcium (8.4-10.2) mg/dL Phosphorus (2.5-4.5) mg/dL Crossmatch See Detail 11/18/19 11/18/19 11/19/19 Range/Units 18:33 23:44 04:50 RBC (4.30-5.90) m/uL Hgb (13.0-17.5) gm/dL Hct (39.0-53.0) % ABG pO2 (83-108) mmHg ABG Total CO2 (19-24) mmol/L ABG O2 Saturation (94-97) % Potassium 3.4 L (3.5-5.1) mmol/L Chloride 113 H (98-107) mmol/L Carbon Dioxide (22-30) mmol/L BUN 44 H (9-20) mg/dL Creatinine 4.43 H (0.66-1.25) mg/dL Glucose 124 H (74-99) mg/dL POC Glucose (mg/dL) 111 H 156 H (75-99) mg/dL Calcium 7.3 L (8.4-10.2) mg/dL Phosphorus 5.0 H (2.5-4.5) mg/dL Crossmatch 11/19/19 11/19/19 11/19/19 Range/Units 05:00 05:20 05:20 RBC 2.20 L (4.30-5.90) m/uL Hgb 6.4 L* D (13.0-17.5) gm/dL Hct 19.7 L* (39.0-53.0) % ABG pO2 (83-108) mmHg ABG Total CO2 (19-24) mmol/L ABG O2 Saturation 97.3 H (94-97) % Potassium (3.5-5.1) mmol/L Chloride 113 H (98-107) mmol/L Carbon Dioxide 21 L (22-30) mmol/L BUN 43 H (9-20) mg/dL Creatinine 4.53 H (0.66-1.25) mg/dL Glucose 121 H (74-99) mg/dL POC Glucose (mg/dL) (75-99) mg/dL Calcium 7.5 L (8.4-10.2) mg/dL Phosphorus 5.2 H (2.5-4.5) mg/dL Crossmatch 11/19/19 Range/Units 05:53 RBC (4.30-5.90) m/uL Hgb (13.0-17.5) gm/dL Hct (39.0-53.0) % ABG pO2 (83-108) mmHg ABG Total CO2 (19-24) mmol/L ABG O2 Saturation (94-97) % Potassium (3.5-5.1) mmol/L Chloride (98-107) mmol/L Carbon Dioxide (22-30) mmol/L BUN (9-20) mg/dL Creatinine (0.66-1.25) mg/dL Glucose (74-99) mg/dL POC Glucose (mg/dL) 134 H (75-99) mg/dL Calcium (8.4-10.2) mg/dL Phosphorus (2.5-4.5) mg/dL Crossmatch Microbiology - Last 24 Hours (Table) 11/18/19 18:00 Catheter Tip Culture - Preliminary Catheter Tip 11/18/19 06:15 Blood Culture - Preliminary Blood No Growth after 24 hours 11/18/19 06:08 Blood Culture - Preliminary Blood No Growth after 24 hours 11/18/19 08:08 Urine Culture - Preliminary Urine,Voided 11/18/19 04:05 Gram Stain - Preliminary Sputum Sputum Culture - Preliminary Assessment and Plan Plan: Assessment: 1. Acute kidney injury secondary to ATN secondary to severe anemia and hemodynamic instability/cardiac arrest. Renal function relatively stable compared to yesterday. Creatinine 4.53 today. Urinalysis is benign. No hydronephrosis noted on kidney ultrasound done on November 03. Right kidney noted to be 8.9 cm. 2. Acute GI bleed status post exploratory laparotomy with duodenectomy and oversewing of duodenal ulcer on November 01. Hemoglobin 6.4 today. Maintained on Aranesp. 3. A. fib with RVR. Now rate controlled. 4. Chronic kidney disease. Unknown baseline renal function. 5. Metabolic acidosis secondary to acute kidney injury. 6. Diabetes mellitus. Plan: Maintain normal saline at 75 mL an hour. Lasix 60 mg IV once after blood transfusion completed. Replace potassium. 20 mg once today. Wean FiO2. Avoid nephrotoxins. Continue to monitor renal function and urine output. Per patient's wishes, family refusing any form of renal replacement therapy if needed.
[2019-11-19] MEDS: METOPROLOL TARTRATE 50 MG TAB PO SCH ×3 (09:53→21:14)
[2019-11-19] MEDS: AMIODARONE 200 MG TAB PO SCH ×2 (09:53→20:44)
[2019-11-19] MEDS: PREGABALIN 50 MG CAP PO SCH ×2 (09:53→20:44)
[2019-11-19] MEDS: LIDOCAINE 5% PATCH TOPICAL SCH (09:53)
[2019-11-19] MEDS: PANTOPRAZOLE 40 MG/10 ML VIAL IV SCH ×2 (10:09→20:43)
[2019-11-19] MEDS: CHLORHEXIDINE GLUCONATE 15 ML CUP MUCOUS MEM SCH ×2 (10:09→20:44)
[2019-11-19] MEDS: NICOTINE 14MG/24HR PATCH TRANSDERM SCH (10:09)
--- NOTE | 2019-11-19 10:51 | P.PN ---
<Andie Vanegas Bridgette - Last Filed: 11/19/19 10:36> Subjective Progress Note Date: 11/19/19 CHIEF COMPLAINT: Bleeding duodenal ulcer HISTORY OF PRESENT ILLNESS: 78-year-old male who is status post exploratory laparotomy with duodenotomy and oversewing of bleeding duodenal ulcer. Patient is also s/p cardiac arrest. He remains intubated in the ICU. He has received 4- 5L of IV fluids per nursing. Hemoglobin today is 6.4. He is receiving 1 unit RBCs. No signs of GI bleeding. PHYSICAL EXAM: VITAL SIGNS: Reviewed GENERAL: Well-developed in no acute distress-sedated on mechanical ventilation. HEENT: No sclera icterus. Extraocular movements grossly intact. Moist buccal mucosa. Head is atraumatic, normocephalic. No nasal drainage. NECK: Supple without lymphadenopathy. CHEST: Non-labored respirations and equal bilateral excursions-on mechanical ventilation. CARDIOVASCULAR: Regular rate with regular rhythm. Palpable 2+ radial pulses. ABDOMEN: Soft. Nondistended. Surgical dressing clean dry intact. Incision without redness or significant drainage. MUSCULOSKELETAL: No clubbing or cyanosis NEUROLOGIC: Sedated on mechanical ventilation PSYCH: Sedated on mechanical ventilation SKIN: Well perfused. Good skin turgor. ASSESSMENT: 1. Bleeding duodenal ulcer, status post exploratory laparotomy with duodenotomy and oversewing of bleeding duodenal ulcer 2. Acute blood loss anemia PLAN: Patient is to receive 1 unit RBC transfusion today. Plan is to extubate afterwards with no plans of reintubation. Patient is currently a DNR. Family has stated patient does not want aggressive treatment or heroic measures. We will sign off. Please reconsult if needed. Nurse practitioner note has been reviewed by physician. Signing provider agrees with the documented findings, assessment, and plan of care. Objective - Vital Signs Vital signs: Vital Signs Temp 98.5 F 11/19/19 10:04 Pulse 60 11/19/19 10:15 Resp 20 11/19/19 10:15 BP 130/38 11/19/19 10:04 Pulse Ox 98 11/19/19 10:15 Intake & Output 11/18/19 11/19/19 11/19/19 18:59 06:59 18:59 Intake Total 3706.12 1213.334 127.9 Output Total 400 515 30 Balance 3306.12 698.334 97.9 Intake: IV 3000 1000 75 Piperacillin-Tazobactam 3 100 .375 gm In Sodium Chloride 0.9% 100 ml @ 25 mls/hr IVPB Q12H [facility] Rx# :[id number] Sodium Chloride 0.9% 1, 900 75 000 ml @ 75 mls/hr IV . [id number] [facility] Rx#:[id number] Sodium Chloride 0.9% 1, 3000 000 ml @ 999 mls/hr IV . Q1H1M [facility] Rx#:[id number] Intake, IV Titration 706.12 213.334 52.9 Amount Norepinephrine 4 mg In 113.334 Sodium Chloride 0.9% 250 ml @ 0.05 MCG/KG/MIN 17. 526 mls/hr IV .[id number] [facility] Rx#:[id number] Piperacillin-Tazobactam 3 100 .375 gm In Sodium Chloride 0.9% 100 ml @ 25 mls/hr IVPB Q12H [facility] Rx# :[id number] Propofol 1,000 mg In 156.12 100.00 52.9 Empty Bag 1 bag @ Titrate IV .Q0M [facility] Rx#: [id number] Sodium Chloride 0.9% 1, 450 000 ml @ 75 mls/hr IV . [id number] [facility] Rx#:[id number] Blood Product 0 Rc Pheresis As-3 Unit 0 [id number] Output: Gastric Drainage 285 170 Urine 115 345 30 Other: Voiding Method Indwelling Catheter Indwelling Catheter ABP, PAP, CO, CI - Last Documented Arterial Blood Pressure 130/38 - Labs CBC & Chem 7: 11/19/19 05:20 11/19/19 05:20 Labs: Abnormal Lab Results - Last 24 Hours (Table) 11/16/19 11/18/19 11/18/19 Range/Units 09:46 12:39 13:11 RBC (4.30-5.90) m/uL Hgb (13.0-17.5) gm/dL Hct (39.0-53.0) % ABG pO2 198 H (83-108) mmHg ABG Total CO2 26 H (19-24) mmol/L ABG O2 Saturation 99.6 H (94-97) % Potassium (3.5-5.1) mmol/L Chloride (98-107) mmol/L Carbon Dioxide (22-30) mmol/L BUN (9-20) mg/dL Creatinine (0.66-1.25) mg/dL Glucose (74-99) mg/dL POC Glucose (mg/dL) 136 H (75-99) mg/dL Calcium (8.4-10.2) mg/dL Phosphorus (2.5-4.5) mg/dL Crossmatch See Detail 11/18/19 11/18/19 11/19/19 Range/Units 18:33 23:44 04:50 RBC (4.30-5.90) m/uL Hgb (13.0-17.5) gm/dL Hct (39.0-53.0) % ABG pO2 (83-108) mmHg ABG Total CO2 (19-24) mmol/L ABG O2 Saturation (94-97) % Potassium 3.4 L (3.5-5.1) mmol/L Chloride 113 H (98-107) mmol/L Carbon Dioxide (22-30) mmol/L BUN 44 H (9-20) mg/dL Creatinine 4.43 H (0.66-1.25) mg/dL Glucose 124 H (74-99) mg/dL POC Glucose (mg/dL) 111 H 156 H (75-99) mg/dL Calcium 7.3 L (8.4-10.2) mg/dL Phosphorus 5.0 H (2.5-4.5) mg/dL Crossmatch 11/19/19 11/19/19 11/19/19 Range/Units 05:00 05:20 05:20 RBC 2.20 L (4.30-5.90) m/uL Hgb 6.4 L* D (13.0-17.5) gm/dL Hct 19.7 L* (39.0-53.0) % ABG pO2 (83-108) mmHg ABG Total CO2 (19-24) mmol/L ABG O2 Saturation 97.3 H (94-97) % Potassium (3.5-5.1) mmol/L Chloride 113 H (98-107) mmol/L Carbon Dioxide 21 L (22-30) mmol/L BUN 43 H (9-20) mg/dL Creatinine 4.53 H (0.66-1.25) mg/dL Glucose 121 H (74-99) mg/dL POC Glucose (mg/dL) (75-99) mg/dL Calcium 7.5 L (8.4-10.2) mg/dL Phosphorus 5.2 H (2.5-4.5) mg/dL Crossmatch 11/19/19 Range/Units 05:53 RBC (4.30-5.90) m/uL Hgb (13.0-17.5) gm/dL Hct (39.0-53.0) % ABG pO2 (83-108) mmHg ABG Total CO2 (19-24) mmol/L ABG O2 Saturation (94-97) % Potassium (3.5-5.1) mmol/L Chloride (98-107) mmol/L Carbon Dioxide (22-30) mmol/L BUN (9-20) mg/dL Creatinine (0.66-1.25) mg/dL Glucose (74-99) mg/dL POC Glucose (mg/dL) 134 H (75-99) mg/dL Calcium (8.4-10.2) mg/dL Phosphorus (2.5-4.5) mg/dL Crossmatch Microbiology - Last 24 Hours (Table) 11/18/19 18:00 Catheter Tip Culture - Preliminary Catheter Tip 11/18/19 06:15 Blood Culture - Preliminary Blood No Growth after 24 hours 11/18/19 06:08 Blood Culture - Preliminary Blood No Growth after 24 hours 11/18/19 08:08 Urine Culture - Preliminary Urine,Voided 11/18/19 04:05 Gram Stain - Preliminary Sputum Sputum Culture - Preliminary <Lissa Morel N - Last Filed: 11/19/19 22:31> Subjective As above. No additional surgical intervention as patient is too high risk for surgery. Objective - Vital Signs Vital signs: Vital Signs Temp 98.3 F 11/19/19 20:00 Pulse 75 11/19/19 22:00 Resp 17 11/19/19 22:00 BP 133/39 11/19/19 11:11 Pulse Ox 96 11/19/19 22:00 Intake & Output 11/19/19 11/19/19 11/20/19 06:59 18:59 06:59 Intake Total 5081.137 8571.9 300 Output Total 515 1990 725 Balance 698.334 -627.1 -425 Intake: IV 1000 1000 300 Piperacillin-Tazobactam 3 100 100 .375 gm In Sodium Chloride 0.9% 100 ml @ 25 mls/hr IVPB Q12H [facility] Rx# :[id number] Sodium Chloride 0.9% 1, 900 900 300 000 ml @ 75 mls/hr IV . [id number] [facility] Rx#:[id number] Intake, IV Titration 213.334 52.9 Amount Norepinephrine 4 mg In 113.334 Sodium Chloride 0.9% 250 ml @ 0.05 MCG/KG/MIN 17. 526 mls/hr IV .[id number] [facility] Rx#:[id number] Propofol 1,000 mg In 100.00 52.9 Empty Bag 1 bag @ Titrate IV .Q0M [facility] Rx#: [id number] Blood Product 310 Rc Pheresis As-3 Unit 310 [id number] Output: Gastric Drainage 170 Urine 345 1990 725 Other: Voiding Method Indwelling Catheter Indwelling Catheter Indwelling Catheter ABP, PAP, CO, CI - Last Documented Arterial Blood Pressure 149/33 - Labs CBC & Chem 7: 11/19/19 15:35 11/19/19 05:20 Labs: Abnormal Lab Results - Last 24 Hours (Table) 11/16/19 11/18/19 11/19/19 Range/Units 09:46 23:44 04:50 RBC (4.30-5.90) m/uL Hgb (13.0-17.5) gm/dL Hct (39.0-53.0) % RDW (11.5-15.5) % Lymphocytes # (1.0-4.8) k/uL ABG O2 Saturation (94-97) % Potassium 3.4 L (3.5-5.1) mmol/L Chloride 113 H (98-107) mmol/L Carbon Dioxide (22-30) mmol/L BUN 44 H (9-20) mg/dL Creatinine 4.43 H (0.66-1.25) mg/dL Glucose 124 H (74-99) mg/dL POC Glucose (mg/dL) 156 H (75-99) mg/dL Calcium 7.3 L (8.4-10.2) mg/dL Phosphorus 5.0 H (2.5-4.5) mg/dL Crossmatch See Detail 0111/19/19 11/19/19 Range/Units 05:00 05:20 05:20 RBC 2.20 L (4.30-5.90) m/uL Hgb 6.4 L* D (13.0-17.5) gm/dL Hct 19.7 L* (39.0-53.0) % RDW (11.5-15.5) % Lymphocytes # (1.0-4.8) k/uL ABG O2 Saturation 97.3 H (94-97) % Potassium (3.5-5.1) mmol/L Chloride 113 H (98-107) mmol/L Carbon Dioxide 21 L (22-30) mmol/L BUN 43 H (9-20) mg/dL Creatinine 4.53 H (0.66-1.25) mg/dL Glucose 121 H (74-99) mg/dL POC Glucose (mg/dL) (75-99) mg/dL Calcium 7.5 L (8.4-10.2) mg/dL Phosphorus 5.2 H (2.5-4.5) mg/dL Crossmatch 11/19/19 11/19/19 11/19/19 Range/Units 05:53 15:35 18:13 RBC 2.75 L (4.30-5.90) m/uL Hgb 7.9 L D (13.0-17.5) gm/dL Hct 24.1 L (39.0-53.0) % RDW 16.6 H (11.5-15.5) % Lymphocytes # 0.8 L (1.0-4.8) k/uL ABG O2 Saturation (94-97) % Potassium (3.5-5.1) mmol/L Chloride (98-107) mmol/L Carbon Dioxide (22-30) mmol/L BUN (9-20) mg/dL Creatinine (0.66-1.25) mg/dL Glucose (74-99) mg/dL POC Glucose (mg/dL) 134 H 109 H (75-99) mg/dL Calcium (8.4-10.2) mg/dL Phosphorus (2.5-4.5) mg/dL Crossmatch 11/19/19 Range/Units 18:25 RBC (4.30-5.90) m/uL Hgb (13.0-17.5) gm/dL Hct (39.0-53.0) % RDW (11.5-15.5) % Lymphocytes # (1.0-4.8) k/uL ABG O2 Saturation (94-97) % Potassium (3.5-5.1) mmol/L Chloride (98-107) mmol/L Carbon Dioxide (22-30) mmol/L BUN (9-20) mg/dL Creatinine (0.66-1.25) mg/dL Glucose (74-99) mg/dL POC Glucose (mg/dL) 104 H (75-99) mg/dL Calcium (8.4-10.2) mg/dL Phosphorus (2.5-4.5) mg/dL Crossmatch Microbiology - Last 24 Hours (Table) 11/18/19 08:08 Urine Culture - Final Urine,Voided 11/18/19 18:00 Catheter Tip Culture - Preliminary Catheter Tip 11/18/19 06:15 Blood Culture - Preliminary Blood No Growth after 24 hours 11/18/19 06:08 Blood Culture - Preliminary Blood No Growth after 24 hours Assessment and Plan (1) 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 Current Visit: Yes Status: Acute Code(s): E11.22 - TYPE 2 DIABETES MELLITUS W DIABETIC CHRONIC KIDNEY DISEASE; N18.4 - CHRONIC KIDNEY DISEASE, STAGE 4 (SEVERE) SNOMED Code(s): 599246119 (2) Diabetes type 2, uncontrolled Current Visit: Yes Status: Acute Code(s): E11.65 - TYPE 2 DIABETES MELLITUS WITH HYPERGLYCEMIA SNOMED Code(s): 053212630 (3) Hypertensive heart disease Current Visit: Yes Status: Acute Code(s): I11.9 - HYPERTENSIVE HEART DISEASE WITHOUT HEART FAILURE SNOMED Code(s): 32112562 (4) Acute blood loss anemia Current Visit: Yes Status: Acute Code(s): D62 - ACUTE POSTHEMORRHAGIC ANEMIA SNOMED Code(s): 442362306 (5) Bleeding duodenal ulcer Current Visit: Yes Status: Acute Code(s): K26.4 - CHRONIC OR UNSPECIFIED DUODENAL ULCER WITH HEMORRHAGE SNOMED Code(s): 85305614 (6) Pulmonary edema Current Visit: Yes Status: Acute Code(s): J81.1 - CHRONIC PULMONARY EDEMA SNOMED Code(s): 60281952 (7) Cardiac arrest due to respiratory disorder Current Visit: Yes Status: Acute Code(s): J98.9 - RESPIRATORY DISORDER, UNSPECIFIED; I46.8 - CARDIAC ARREST DUE TO OTHER UNDERLYING CONDITION SNOMED Code(s): 299419396 (8) Acute renal failure Current Visit: Yes Status: Acute Code(s): N17.9 - ACUTE KIDNEY FAILURE, UNSPECIFIED SNOMED Code(s): 07168609
[2019-11-19] MEDS ORDERED: POTASSIUM CHLORIDE 20 MEQ in WATER FOR INJECTION 1 100ML.BAG IVPB STA (11:14)
[2019-11-19] MEDS ORDERED: FUROSEMIDE 10 MG/ML 10 ML VIAL IV STA (11:14)
[2019-11-19] MEDS: PIPERACILLIN-TAZOBACTAM 3.375 GM in SODIUM CHLORIDE 0.9% 100 ML IVPB SCH (11:21)
[2019-11-19] MEDS: NOREPINEPHRINE 4 MG in SODIUM CHLORIDE 0.9% 250 ML IV SCH (11:28)
[2019-11-19 12:00] LABS: Glucose,Whole Blood 98 mg/dL (75-99)
--- NOTE | 2019-11-19 12:08 | PN ---
PROGRESS NOTE PULMONARY/CRITICAL CARE PROGRESS NOTE: DATE OF SERVICE: November 19, 2019. CRITICAL CARE TIME: 34 minutes. This is a gentleman who is 79 years of age. He was admitted way back on October 28 for acute gastrointestinal bleed and blood-loss anemia. He was last seen by our group on November 10. He was on the general medical floor at that time and doing well and Dr. Gonzales signed off. At that time apparently, he was not complaining of any shortness of breath or difficulty breathing and was on O2 at 4 L. More recently, sometime after midnight 2 days ago, the patient apparently had a brief episode of a cardiopulmonary arrest. The circumstances were not clear. A-team was called. He was resuscitated with cardiopulmonary resuscitation and chest compressions and some epinephrine, intubated and transferred to the ICU. He currently is still in the ICU. He is on the volume assist-control mode rate of 20, tidal volume 500, FiO2 of 50%, PEEP of 5. Blood gases show pO2 of 90, pCO2 of 37, and a pH of 7.38. Today's hemoglobin was only 6.4, he will receive 1 unit of blood. He is getting saline at 75 mL an hour, propofol at 25 mcg/kg per minute. Norepinephrine is currently on hold. It was running at 6 mcg/minute maximum dose. Yesterday, I had a long conversation with the family including a son who lives in [place]. That son flew in apparently last night and is currently here this morning. I had a family conference in the room with 2 sons and . I gave them a couple options. I thought the patient should be transferred to [facility] if they wanted to continue full life support. This is because his hemoglobin is dropping and he may be bleeding again. None of the surgeons here would take Mr. Obregon back to the operating room for any surgical procedure. If the family rather would prefer him to be extubated and not reintubated, that will be another option. They talked for a long time. We all talked for a long time and finally they decided to go that route. The plan would be to give him a unit of blood, extubate him to either nasal O2 high- flow oxygen AIRVO or BiPAP and treat him medically without re-intubation or any cardiopulmonary resuscitation. I explained it very clearly to them. They understand. They agree. PHYSICAL EXAMINATION: VITAL SIGNS: Current vital signs are reviewed. His temperature is 98.4, heart rate 60, respiratory rate 20, blood pressure 130/38, mean 68, saturations are 99%. CVP is 9. GENERAL: Appears in no acute distress. He is currently sedated. HEENT: Examination is grossly unremarkable. There is an orally placed endotracheal tube and NG tube. NECK: Supple. Full range of motion. No adenopathy. No thyromegaly. Neck veins are flat. CARDIOVASCULAR: Examination reveals regular rhythm and rate. S1, S2 normal. No S3, S4, or murmur. Heart sounds are distant. LUNGS: Reveal some coarse rhonchi. Breath sounds equal. No wheezes. ABDOMEN: Soft. No bowel sounds. EXTREMITIES: Are intact. Mild edema. SKIN: Without rash. NEUROLOGIC: Examination cannot be adequately assessed given the fact the patient is on propofol. Microbiologic studies even dating back to November 02 are negative. LAB DATA: Lab data is reviewed. White count 4.4, hemoglobin 6.4, hematocrit by 19.7, platelet count 173,000. Blood gases show pO2 of 90, pCO2 of 37, and pH of 7.38. Sodium 141, potassium 3.5, chloride 113, CO2 of 21. Anion gap is 7. BUN and creatinine were 43 and 4.53. Chest x-ray showed some patchy opacities and airspace disease consistent with either congestive heart failure or interstitial edema. There are bilateral pleural effusions. MEDICATIONS: Medications are reviewed. ASSESSMENT: 1. Status post cardiopulmonary arrest with cardiopulmonary resuscitation and eventual return of spontaneous circulation, of unclear etiology. The patient is currently mechanically ventilated and in the intensive care unit. 2. History of acute blood loss anemia related to upper gastrointestinal bleed from a duodenal source, status post 9 units of PRBCs and another one today. He also received one unit of fresh frozen plasma. The patient is status post exploratory laparotomy with over-sewing of duodenal ulcer. 3. History of duodenal ulcer with acute gastrointestinal bleed. 4. Possible ischemic colitis. 5. History of fluid overload. 6. History of lactic acidemia. 7. History of sleep apnea syndrome. 8. History of hyperlipidemia. 9. History of hypothyroidism. 10.Benign essential hypertension by history. 11.Diabetes mellitus. 12.Degenerative joint disease. 13.Chronic tobacco dependence. 14.Posttraumatic stress disorder. 15.Chronic kidney disease. PLAN: I had a long discussion with the family. Both sons and are in the room. The patient will be extubated and not reintubated. We will continue to treat him with full measures short of intubation and mechanical ventilation and cardiopulmonary resuscitation. They do not want the patient transferred to [facility]. The patient will receive one unit of blood prior to extubation. The propofol will be discontinued. He is currently not on any Levophed. Blood gases are excellent. Will continue to watch closely. I told them that we will continue to provide full support short of anything heroic or extraordinary. They understand and agree. We did place a central line and art line yesterday. Those will stay in for now. Additional recommendations and suggestions forthcoming. Prognosis guarded. Medications are reviewed. CRITICAL CARE TIME: 34 minutes. BHAVNA / CADEN: [id number] / YAMILET
[2019-11-19 15:49] LABS: Anisocytosis Slight; Basophils % (A) 1 %; Eosinophils # (A) 0.1 k/uL (0-0.7); Eosinophils % (A) 2 %; HCT 24.1 % (39.0-53.0); Lymphocytes # (A) 0.8 k/uL (1.0-4.8); Lymphocytes % (A) 16 %; MCH 28.6 pg (25.0-35.0); MCHC 32.7 g/dL (31.0-37.0); MCV 87.7 fL (80.0-100.0); Mean Platelet Volume 8.3; Monocytes # (A) 0.2 k/uL (0-1.0); Monocytes % (A) 4 %; Neutrophils # (A) 3.8 k/uL (1.3-7.7); Neutrophils % (A) 74 %; Platelet Count 188 k/uL (150-450); RBC 2.75 m/uL (4.30-5.90); RDW 16.6 % (11.5-15.5); WBC 5.1 k/uL (3.8-10.6)
[2019-11-19 16:00] LABS: HGB 7.9 gm/dL (13.0-17.5)
[2019-11-19 18:24] LABS: Glucose,Whole Blood 109 mg/dL (75-99)
[2019-11-19] MEDS: SODIUM CHLORIDE 0.9% 1,000 ML IV SCH ×2 (18:27→23:01)
[2019-11-19 18:37] LABS: Glucose,Whole Blood 104 mg/dL (75-99)
[2019-11-20 00:07] LABS: Glucose,Whole Blood 107 mg/dL (75-99)
[2019-11-20] MEDS: IPRATROPIUM-ALBUTEROL 3 ML NEB INHALATION SCH ×6 (00:34→20:08)
[2019-11-20] MEDS: INSULIN ASPART (NovoLOG) 100 UNIT/ML VIAL SQ SCH ×5 (00:36→21:14)
[2019-11-20] MEDS: PIPERACILLIN-TAZOBACTAM 3.375 GM in SODIUM CHLORIDE 0.9% 100 ML IVPB SCH ×2 (00:37→12:07)
[2019-11-20 04:29] LABS: Anisocytosis Slight; Basophils # (A) 0.1 k/uL (0-0.2); Basophils % (A) 1 %; Eosinophils # (A) 0.2 k/uL (0-0.7); Eosinophils % (A) 4 %; HCT 25.6 % (39.0-53.0); HGB 8.3 gm/dL (13.0-17.5); Lymphocytes # (A) 0.8 k/uL (1.0-4.8); Lymphocytes % (A) 17 %; MCH 28.2 pg (25.0-35.0); MCHC 32.5 g/dL (31.0-37.0); MCV 86.8 fL (80.0-100.0); Mean Platelet Volume 9.2; Monocytes # (A) 0.2 k/uL (0-1.0); Monocytes % (A) 4 %; Neutrophils # (A) 3.4 k/uL (1.3-7.7); Neutrophils % (A) 71 %; Platelet Count 186 k/uL (150-450); RBC 2.95 m/uL (4.30-5.90); RDW 16.6 % (11.5-15.5); WBC 4.8 k/uL (3.8-10.6)
[2019-11-20 04:43] LABS: Calcium 8.1 mg/dL (8.4-10.2); Potassium 3.9 mmol/L (3.5-5.1)
[2019-11-20 06:19] LABS: Glucose,Whole Blood 113 mg/dL (75-99)
[2019-11-20] MEDS: NOREPINEPHRINE 4 MG in SODIUM CHLORIDE 0.9% 250 ML IV SCH ×2 (07:36→16:04)
[2019-11-20] MEDS ORDERED: POTASSIUM CHLORIDE 20 MEQ in WATER FOR INJECTION 1 100ML.BAG IVPB STA (09:01)
[2019-11-20] MEDS: PREGABALIN 50 MG CAP PO SCH ×2 (09:10→21:28)
[2019-11-20] MEDS: LEVOTHYROXINE 125 MCG TAB PO SCH (09:10)
[2019-11-20] MEDS: PANTOPRAZOLE 40 MG/10 ML VIAL IV SCH ×2 (09:10→21:28)
[2019-11-20] MEDS: NICOTINE 14MG/24HR PATCH TRANSDERM SCH (09:10)
[2019-11-20] MEDS: AMIODARONE 200 MG TAB PO SCH ×2 (09:10→21:27)
[2019-11-20] MEDS: METOPROLOL TARTRATE 50 MG TAB PO SCH ×3 (09:10→21:27)
[2019-11-20] MEDS: LIDOCAINE 5% PATCH TOPICAL SCH (09:12)
[2019-11-20] MEDS: SODIUM CHLORIDE 0.9% 1,000 ML IV SCH (09:17)
--- NOTE | 2019-11-20 09:41 | XR ---
EXAMINATION TYPE: XR chest 1V portable DATE OF EXAM: 11/20/2019 COMPARISON: 11/19/2019 INDICATION: Tube placement TECHNIQUE: Single frontal view of the chest is obtained. FINDINGS: The heart size is normal. The pulmonary vasculature is normal. There is a right lower lobe infiltrate. Mild infiltrate is in the right upper lung field. Findings ar e worsening from comparison. Correlate for atelectasis. Mild left lower lobe retrocardiac infiltrate is present. This may be improving. There is better visualization left diaphragm. Small effusions are not entirely excluded. The endotracheal tube and nasogastric tube is been removed. The left central venous catheter is stabl e in position. No pneumothorax is evident. IMPRESSION: 1. Worsening right lung infiltrate. Correlate for atelectasis. 2. Mild left lower lobe infiltrate, improving. 3. Minimal left and small right pleural effusion should be considered.
--- NOTE | 2019-11-20 09:49 | P.PN ---
Subjective Progress Note Date: 11/20/19 Principal diagnosis: Acute upper GI bleeding, blood loss anemia, On 10/30/2017 patient seen in follow-up in the intensive care unit, yesterday patient had a EGD/colonoscopy which revealed a duodenal ulcer, that was not actively bleeding with a large anterior and clot in the second portion of the duodenum. Colonoscopy revealed ischemic colitis in the left colon with biopsies taken. However the procedure had to be aborted related to poor prep. Today's hemoglobin is 6.8, patient has had 2 units of blood already, and he is receiving an additional unit of blood this morning. Hemodynamically patient is stable, receiving IV fluids, with 0.9 normal saline at a rate of 100 ML per hour. She remains on high flow oxygen, at 10 L and his pulse ox is 92-93%. Complaints of chest pain, patient does have exertional dyspnea, today's chest x-ray has been reviewed, showing bibasilar atelectasis and bilateral pleural effusions. Patient is still getting IV fluids at a rate of 100, we will turn it was down, and give the patient a dose of IV Lasix, today's labs have been reviewed, showing white blood cell count 8.3, hemoglobin of 6.8, platelet count 293, sodium was 143, potassium was 5.4, chloride was 117, CO2 was 22, BUN was 53, creatinine was 2.94. Lung sounds reveal diminished breath sounds bilaterally. No active bleeding overnight. Patient remains nothing by mouth at this time. On 11/20/2019 patient is seen in follow-up in intensive care unit, yesterday patient was extubated, so far she is tolerating extubation very well, she remains on 12 L per high flow nasal cannula, and pulse ox is 94%. Denies any worsening dyspnea, no fever, hemodynamically remains stable, no active bleeding, today's hemoglobin is 8.3. Yesterday patient received a unit of blood for a hemoglobin of 6.4. Patient has received 11 units of packed red blood cells 1 unit of fresh frozen plasma this admission. He states that his abdomen feels sore, but abdomen is soft. No nausea or vomiting, patient is tolerating regular diet, and is appetite is good, and consumed 70% of his breakfast, today's chest x-ray has been reviewed, showing worsening right lung infiltrate possibly related to atelectasis, and improving left lower lobe infiltrate and minimal left and small right pleural effusions. So far all of his blood, sputum and urine cultures have shown no growth, central line catheter tip has been sent for culture and is pending at this time, she remains on Zosyn for antibiotic coverage Objective - Vital Signs Vital signs: Vital Signs Temp 98.3 F 11/20/19 08:00 Pulse 65 11/20/19 09:00 Resp 23 11/20/19 09:00 BP 136/90 11/20/19 09:00 Pulse Ox 96 11/20/19 09:00 Intake & Output 11/19/19 11/20/19 11/20/19 18:59 06:59 18:59 Intake Total 1362.9 900 150 Output Total 1989 1810 225 Balance -627.1 -910 -75 Intake: IV 1000 900 150 Piperacillin-Tazobactam 3 100 .375 gm In Sodium Chloride 0.9% 100 ml @ 25 mls/hr IVPB Q12H [facility] Rx# :[id number] Sodium Chloride 0.9% 1, 900 900 150 000 ml @ 75 mls/hr IV . [id number] [facility] Rx#:[id number] Intake, IV Titration 52.9 Amount Propofol 1,000 mg In 52.9 Empty Bag 1 bag @ Titrate IV .Q0M [facility] Rx#: [id number] Blood Product 310 Rc Pheresis As-3 Unit 310 [id number] Output: Urine 1989 Other: Voiding Method Indwelling Catheter Indwelling Catheter ABP, PAP, CO, CI - Last Documented Arterial Blood Pressure 151/37 - Exam GENERAL EXAM: Alert, very pleasant, 78-year-old white male, on 12 L per high flow oxygen, pulse ox of 92%, comfortable in no apparent distress. HEAD: Normocephalic/atraumatic. EYES: Normal reaction of pupils, equal size. Conjunctiva pink, sclera white. NOSE: Clear with pink turbinates. THROAT: No erythema or exudates. NECK: No masses, no JVD, no thyroid enlargement, no adenopathy. CHEST: No chest wall deformity. Symmetrical expansion. LUNGS: Equal air entry with no crackles, wheeze, rhonchi or dullness. Diminished breath sounds at the bases CVS: Regular rate and rhythm, normal S1 and S2, no gallops, no murmurs, no rubs ABDOMEN: Soft, sore, but soft No hepatosplenomegaly, normal bowel sounds, no guarding or rigidity. EXTREMITIES: No clubbing, no edema, no cyanosis, 2+ pulses and upper and lower extremities. MUSCULOSKELETAL: Muscle strength and tone normal. SPINE: No scoliosis or deformity SKIN: No rashes CENTRAL NERVOUS SYSTEM: Alert and oriented -3. No focal deficits, tone is normal in all 4 extremities. PSYCHIATRIC: Alert and oriented -3. Appropriate affect. Intact judgment and insight. - Labs CBC & Chem 7: 11/20/19 04:10 11/20/19 04:10 Labs: Abnormal Lab Results - Last 24 Hours (Table) 11/16/19 11/19/19 11/19/19 Range/Units 09:46 15:35 18:13 RBC 2.75 L (4.30-5.90) m/uL Hgb 7.9 L D (13.0-17.5) gm/dL Hct 24.1 L (39.0-53.0) % RDW 16.6 H (11.5-15.5) % Lymphocytes # 0.8 L (1.0-4.8) k/uL Chloride (98-107) mmol/L BUN (9-20) mg/dL Creatinine (0.66-1.25) mg/dL POC Glucose (mg/dL) 109 H (75-99) mg/dL Calcium (8.4-10.2) mg/dL Crossmatch See Detail 11/19/19 11/19/19 11/20/19 Range/Units 18:25 23:55 04:10 RBC 2.95 L (4.30-5.90) m/uL Hgb 8.3 L (13.0-17.5) gm/dL Hct 25.6 L (39.0-53.0) % RDW 16.6 H (11.5-15.5) % Lymphocytes # 0.8 L (1.0-4.8) k/uL Chloride (98-107) mmol/L BUN (9-20) mg/dL Creatinine (0.66-1.25) mg/dL POC Glucose (mg/dL) 104 H 107 H (75-99) mg/dL Calcium (8.4-10.2) mg/dL Crossmatch 11/20/19 11/20/19 Range/Units 04:10 06:07 RBC (4.30-5.90) m/uL Hgb (13.0-17.5) gm/dL Hct (39.0-53.0) % RDW (11.5-15.5) % Lymphocytes # (1.0-4.8) k/uL Chloride 114 H (98-107) mmol/L BUN 40 H (9-20) mg/dL Creatinine 4.26 H (0.66-1.25) mg/dL POC Glucose (mg/dL) 113 H (75-99) mg/dL Calcium 8.1 L (8.4-10.2) mg/dL Crossmatch Microbiology - Last 24 Hours (Table) 11/18/19 04:05 Gram Stain - Final Sputum Sputum Culture - Final 11/18/19 06:15 Blood Culture - Preliminary Blood No Growth after 48 hours 11/18/19 06:08 Blood Culture - Preliminary Blood No Growth after 48 hours 11/18/19 18:00 Catheter Tip Culture - Preliminary Catheter Tip 11/18/19 08:08 Urine Culture - Final Urine,Voided Assessment and Plan Plan: Assessment: #1. Status post cardiopulmonary arrest with cardiopulmonary resuscitation and he was she'll return of spontaneous circulation, patient required intubation and mechanical ventilation, and was successfully extubated on 11/18/2019, and neurologically patient seems to be intact, and so far tolerating extubation very well on 11/20/2019 #2. Acute blood loss anemia related to upper GI bleeding, patient has received 11 units of packed red blood cells and 1 unit of fresh frozen plasma this admission, patient is status post exploratory laparotomy with oversewing of d uodenal ulcer #3. Duodenal ulcer, with acute gastrointestinal bleeding, requiring transfusion with multiple units of packed red blood cells #4. Possible ischemic colitis #5. Acute hypoxic respiratory failure related to bibasilar atelectasis and pleural effusions and fluid overload #6. Lactic acidemia secondary to GI bleed and anemia #7. History of obstructive sleep apnea on CPAP #8. History of hyperlipidemia #9. Hypothyroidism #10. Hypertension #11. Diabetes mellitus #12. Degenerative joint disease Plan: Continue current medical treatment, continue current antibiotics, patient has been afebrile, today's chest x-ray has been reviewed showing bibasilar atelectasis, improving left lower lobe infiltrate, and minimal bilateral pleural effusions. Maintaining his pressure precautions, encourage deep breathing and coughing. Weaning FiO2, continue Zosyn, nebulized bronchodilators, Pulmicort and Perforomist. Hemodynamically stable, no evidence of recurrent bleeding at this time, patient is tolerating oral diet. Patient has been receiving intermittent doses of IV Lasix, he had one dose yesterday, and he is maintaining negative fluid balance. Nephrology is following, renal profile is fairly stable. I performed a history & physical examination of the patient and discussed their management with my nurse practitioner, Cristina Tinoco. I reviewed the nurse practitioner's note and agree with the documented findings and plan of care. Lung sounds are positive for diminished breath sounds at the bases. The findings and the impression was discussed with the patient. I attest to the documentation by the nurse practitioner. Time with Patient: Less than 30
--- NOTE | 2019-11-20 09:50 | P.PN ---
Subjective Patient is seen in follow-up for acute kidney injury. Renal function a little better today. Patient had an asystole cardiac arrest on November 17. Currently in the intensive care unit. Not on vasopressors at this time. Urine output 75- 100 mL per hour. Patient is awake and alert. Oral intake is good. Vital signs are stable. General: The patient appeared well nourished and normally developed. HEENT: Head exam is unremarkable. Neck is without jugular venous distension. Intubated. LUNGS: Breath sounds decreased. HEART: Rate and Rhythm are regular. First and second heart sounds normal. No murmurs, rubs or gallops. ABDOMEN: Abdominal exam reveals normal bowel sounds. Non-tender and non- distended. No evidence of peritonitis. EXTREMITITES: Trace edema. Objective - Vital Signs Vital signs: Vital Signs Temp 98.3 F 11/20/19 08:00 Pulse 65 11/20/19 09:00 Resp 23 11/20/19 09:00 BP 136/90 11/20/19 09:00 Pulse Ox 96 11/20/19 09:00 Intake & Output 11/19/19 11/20/19 11/20/19 18:59 06:59 18:59 Intake Total 1362.9 900 150 Output Total 19890 225 Balance -627.1 -910 -75 Intake: IV 1000 900 150 Piperacillin-Tazobactam 3 100 .375 gm In Sodium Chloride 0.9% 100 ml @ 25 mls/hr IVPB Q12H [facility] Rx# :[id number] Sodium Chloride 0.9% 1, 900 900 150 000 ml @ 75 mls/hr IV . [id number] [facility] Rx#:[id number] Intake, IV Titration 52.9 Amount Propofol 1,000 mg In 52.9 Empty Bag 1 bag @ Titrate IV .Q0M [facility] Rx#: [id number] Blood Product 310 Rc Pheresis As-3 Unit 310 [id number] Output: Urine 1989 1809 225 Other: Voiding Method Indwelling Catheter Indwelling Catheter ABP, PAP, CO, CI - Last Documented Arterial Blood Pressure 151/37 - Labs CBC & Chem 7: 11/20/19 04:10 11/20/19 04:10 Labs: Abnormal Lab Results - Last 24 Hours (Table) 11/16/19 11/19/19 11/19/19 Range/Units 09:46 15:35 18:13 RBC 2.75 L (4.30-5.90) m/uL Hgb 7.9 L D (13.0-17.5) gm/dL Hct 24.1 L (39.0-53.0) % RDW 16.6 H (11.5-15.5) % Lymphocytes # 0.8 L (1.0-4.8) k/uL Chloride (98-107) mmol/L BUN (9-20) mg/dL Creatinine (0.66-1.25) mg/dL POC Glucose (mg/dL) 109 H (75-99) mg/dL Calcium (8.4-10.2) mg/dL Crossmatch See Detail 11/19/19 11/19/19 11/20/19 Range/Units 18:25 23:55 04:10 RBC 2.95 L (4.30-5.90) m/uL Hgb 8.3 L (13.0-17.5) gm/dL Hct 25.6 L (39.0-53.0) % RDW 16.6 H (11.5-15.5) % Lymphocytes # 0.8 L (1.0-4.8) k/uL Chloride (98-107) mmol/L BUN (9-20) mg/dL Creatinine (0.66-1.25) mg/dL POC Glucose (mg/dL) 104 H 107 H (75-99) mg/dL Calcium (8.4-10.2) mg/dL Crossmatch 11/20/19 11/20/19 Range/Units 04:10 06:07 RBC (4.30-5.90) m/uL Hgb (13.0-17.5) gm/dL Hct (39.0-53.0) % RDW (11.5-15.5) % Lymphocytes # (1.0-4.8) k/uL Chloride 114 H (98-107) mmol/L BUN 40 H (9-20) mg/dL Creatinine 4.26 H (0.66-1.25) mg/dL POC Glucose (mg/dL) 113 H (75-99) mg/dL Calcium 8.1 L (8.4-10.2) mg/dL Crossmatch Microbiology - Last 24 Hours (Table) 11/18/19 04:05 Gram Stain - Final Sputum Sputum Culture - Final 11/18/19 06:15 Blood Culture - Preliminary Blood No Growth after 48 hours 11/18/19 06:08 Blood Culture - Preliminary Blood No Growth after 48 hours 11/18/19 18:00 Catheter Tip Culture - Preliminary Catheter Tip 11/18/19 08:08 Urine Culture - Final Urine,Voided Assessment and Plan Plan: Assessment: 1. Acute kidney injury secondary to ATN secondary to severe anemia and hemodynamic instability/cardiac arrest. Renal function a little better today. Creatinine 4.26. Urinalysis is benign. No hydronephrosis noted on kidney ultrasound done on November 03. Right kidney noted to be 8.9 cm. 2. Acute GI bleed status post exploratory laparotomy with duodenectomy and oversewing of duodenal ulcer on November 01. Status post blood transfusion. Maintained on Aranesp. 3. A. fib with RVR. Now rate controlled. 4. Chronic kidney disease. Unknown baseline renal function. 5. Metabolic acidosis secondary to acute kidney injury. Better. 6. Diabetes mellitus. Plan: Decrease normal saline to 50 mL an hour. Status post 60 mg IV Lasix November 19 post blood transfusion. Replace potassium. 20 mg once today. Avoid nephrotoxins. Continue to monitor renal function and urine output. Per patient's wishes, family refusing any form of renal replacement therapy if needed.
[2019-11-20] MEDS: FORMOTEROL FUMARATE 20 MCG/2 ML NEBU INHALATION SCH ×2 (10:18→20:09)
[2019-11-20] MEDS: BUDESONIDE 1 MG/2 ML NEBU INHALATION SCH ×2 (10:18→20:09)
[2019-11-20 12:11] LABS: Glucose,Whole Blood 132 mg/dL (75-99)
[2019-11-20 16:54] LABS: Glucose,Whole Blood 139 mg/dL (75-99)
[2019-11-20 20:43] LABS: Glucose,Whole Blood 184 mg/dL (75-99)
[2019-11-20] MEDS ORDERED: IPRATROPIUM-ALBUTEROL 3 ML NEB INHALATION PRN (20:43)
--- NOTE | 2019-11-20 21:48 | P.PN ---
Subjective Progress Note Date: 11/19/19 Principal diagnosis: GI bleed; status post EGD/colonoscopy Duodenal ulcer/ischemic colitis 10/30/2017 patient seen in follow-up in the intensive care unit; patient's family is at bedside and had multiple questions which were all addressed to her satisfaction; patient is status post EGD/colonoscopy which revealed a duodenal ulcer, that was not actively bleeding with a large anterior and clot in the second portion of the duodenum. Colonoscopy revealed ischemic colitis in the left colon with biopsies taken. However the procedure had to be aborted related to poor prep. Lab review shows hemoglobin is 6.8, patient has had 2 units of blood already, and he is receiving an additional unit of blood this morning. Hemodynamically patient is stable, receiving IV fluids, with 0.9 normal saline at a rate of 100 ML per hour. He remains on high flow oxygen, at 10 L and his pulse ox is 92- 93%. Complaints of chest pain, patient does have exertional dyspnea, today's chest x-ray has been reviewed, showing bibasilar atelectasis and bilateral pleural effusions. Patient is still getting IV fluids at a rate of 100, we will turn it was down, and give the patient a dose of IV Lasix, today's labs have been reviewed, showing white blood cell count 8.3, hemoglobin of 6.8, platelet count 293, sodium was 143, potassium was 5.4, chloride was 117, CO2 was 22, BUN was 53, creatinine was 2.94. No report of any further rectal bleeding; we will continue to monitor H&H closely and transfuse when needed 10/31/2019 patient is seen and evaluatedin follow-up in the intensive care unit. He is awake and alert in no acute distress. His hemoglobin was 6.6 earlier this morning. He is receiving his fourth unit of packed red blood cells in total this admission. He did undergo an EGD this morning and was found to have a large adherent clot along the duodenal sweep which was removed. A deep ulcerati on with active bleeding was visible. Epinephrine and Endo Clip placement obtained good hemostasis. There are large clots in the stomach. NG tube remains in place. He remains on Protonix 40 mg every 12 hours. Surgical consult was placed. He is currently afebrile. Hemodynamically stable. He is on 10 L high flow nasal cannula to maintain O2 saturations in the mid 90s. 0.9 normal saline at 50 MLS per hour. Remains on Unasyn. Chest x-ray shows some evidence of fluid volume overload and small effusions. White count 5.1. Creatinine 2.77. patient's family is at bedside and on inquiring about transferring the patient to [place]; did advise and son that patient is unstable at this time and family will have to discuss this with case management on Saturday11/01/2019 Patient is seen and evaluated in the room at bedside; patient has been having profuse rectal bleeding; patient underwent EGD which showed bleeding duodenal ulcer, Endo Clip was applied; patient had an episode of dark stools during the night but started bleeding profusely this afternoon; stat H&H is done which shows hemoglobin at 6.0; patient has been started on IV Levophed to maintain blood pressure; patient was evaluated by GI, ICU team and surgery and was recommended transferred to a tertiary care center; [facility] was consulted and transfer arrangements to [facility] surgical ICU were made; patient was deemed unstable for transfer and is taken to OR by the surgical team. 11/02/2019 patient wasadmitted to the hospital with upper GI bleed and was found have duodenal ulcer. due to active bleeding patient was taken to operating room for exploratory laparotomy. Postoperatively patient was intubated. Patient is currently remained on mechanical ventilator. chest x-ray showed bilateral pleural effusions mainly right side with atelectatic changes. Patient is on Levothroid drip and his IV FLUIDS. HEMOGLOBIN8.8, potassium 5.7, BUN/creatinine 46/ 2.89 11/03/2019 Patient iscurrentlyremained on mechanical ventilator. Hemoglobin 7.1 today. Patient initially received 8 units of PRBC transfusion preoperatively.Patient is still requiring pressor support on and off. Patient is currently on NG tube. TPN is being started today. chest x-ray showed improvement of atelectatic changes in the lung bases and small pleural effusion. patient has been afebrile. No abdominal distention. Surgical wound is intact. No leukocytosis. bUN/creatinine 43 x 3.13 11/04/2019 Patient is currently on mechanical ventilator. Postoperative day 3. Status post laparotomy and oversewing of duodenal ulcer. patient is currently on TPN. patient is on sedation holiday and is easily arousable. Hemoglobin is fairly stable at 7.9 today. No further episodes of GI bleed.Chest x-ray showed bilateral pleural effusions worse on the right. Ultrasound of the kidneys showed no evidence ofhydronephrosis. Creatinine level isimproving to 2.8 today.Pulmonary and GI is following. 11 05 2019 patient is postoperative day 4, status post laparotomy and oversewing of the urinalysis. Hemoglobin did improve to 8.7 today.patient is being continued on IV Lasix due to pleural effusion. Currently on norepinephrinewhich is being weaned off slowly. Patient is stable at creatinine level II.8.no signs of active GI bleed. IVELISSE drain is in place. Patient is being prepared for weaning prior.patient has been afebrile.Chest x- ray showedoverall stable findingssmall to moderate size right greater than left pleural effus with mild central vascular congestion. 11/06/2019 Patient was successfully extubated yesterday. Currently postoperative day 5. Status post exploratorylaparotomy and oversewing of duodenal ulcer. Hemoglobin is stable and improving at 9.8 today. Creatinine level is 3.03. p eripheral edema is improv patient was diuresing well vascular congestion. Currently onoxygen nasal canula. patient wants to eat Swallow evaluation is pending.currently on TPN chest x-ray showed bilateral pleural effusions right greater than left Patient has been Afebrile 11/07/2019 Patient denied any complaints of abdominal pain. Hemoglobin is stable and improved to 9.7. Hemodynamically stable. Off pressor support. Status post explored laparotomy and oversewing of duodenal ulcer due to GI bleed. Patient was extubated. urrently patient is tolerating clear liquids. Does have generalized weakness Is improving. Currently on IV Lasix. Chest x-ray showed improvement in volume status without any significant abnormalities. Mild pulmonary vascular congestion without yaya pulmonary laura a. patient has been afebrile.patient is awake alert and oriented. sometimes paranoid.still on TPN for nutritional support. Currently maintaining sinus rhythm. 11/08/2019 Patient is awake alert but confused. Tolerating liquids. No complaints of nausea or vomiting. Patient is still on TPN. Hemoglobin is at 8.6 today. Patient is status post exploratory laparotomy and oversewing of duodenal ulce r.postoperative 7 The patient had several runs of SVT yesterday with a heart rate ranging between 140 and 160. He was given adenosine which converted him and subsequently went back. Following that, the patient was started on amiodarone drip which put him in sinus rhythm and the drip is still running at 0.5 mg per KG per minute. continued onIV Lasix.leg swelling is improving. Patient has been afebrile. Currently on antibiotics in the form of Zosyn and Diflucan. Chest x-ray showedimproved infiltrates. 11/09/2019 Patient is postoperative day 8 status post explorative laparotomy and or seeing of duodenal ulcer. Hemoglobin level improved to 9.6 now. Patient's mental status is much improved compared to yesterday. Less confused today. Tolerating oral diet and is being advanced. BUE and is 42 and creatinine 2.17. Currently on oxygen via nasal cannula 6 L. Chest x-ray showed atelectasis at bases. Patient was on IV Lasix due to pleural effusion. SVT was resolved. Patient was given Adenosine yesterday. patient is being transferred to medical floor today. The pressure is still elev ated. Continued on metoprolol and Norvasc. Added hydralazineas per his home dose. Currently on antibiotics in the form of Zosyn and Diflucan. 11/16/2019 Patient is currently lying in the bed. Complains of generalized weakness and fatigue. Hemoglobin level is 6.8 today. 1 unit of PRBC blood transfusion was ordered. There is patient is still requiring high flow oxygen with another cannula. Patient was given IV Lasix. Otherwise patient is tolerating oral diet. Denied any nausea or vomiting. No abdominal pain. Denied any dark colored bowel movements. No complaints of chest pain. No fever no chills. Pulmonary and general surgery is following. 11/17/2019 Patient is currently sitting on the side of the bed in the chair. Still requiring oxygen high flow. On airvo 70% FiO2 otherwise hemoglobin level increased to 8.2 status post 1 unit of PRBC transfusion. No complaints of nausea vomiting abdominal pain. No diarrhea or dysuria. Patient has been afebrile. Denied any abdominal pain. Patient is tolerating oral diet. No complaints of chest pain or worsening shortness of breath. 11/18/2019 Overnight patient had cardiopulmonary arrest with a down time of 8 minutes. Patient was intubated and is currently on mechanical ventilator. Chest x-ray showed worsening pulmonary edema and CHF. Otherwise patient's renal function is worsening with creatinine level went up to 4.59. Hemoglobin stable. No signs of active bleeding noted. Prognosis is guarded with worsening clinical status. Discussed with family at bedside. Pulmonary and nephrology is following.. 11/19/2019 Patient was extubated today. Currently in the MICU. Patient is currently lying in the bed comfortable. Saturating well on nasal cannula oxygen. Hemoglobin is 6.4. No signs of active bleeding. Patient is off pressor support. Creatinine 4.53, hemoglobin went up to 7.9 with 1 unit of PRBC transfusion. Chest x-ray showed continued interstitial and patchy airspace opacities, possible CHF with interstitial edema. Pulmonary, surgery and nephrology is following. Current medications reviewed. Active Medications Albuterol/Ipratropium (Duoneb 0.5 Mg-3 Mg/3 Ml Soln) 3 ml INHALATION RT-Q4H [facility] Last Admin: 11/18/19 23:19 Dose: 3 ml Documented by: Amiodarone HCl (Cordarone) 200 mg PO BID [facility] Last Admin: 11/18/19 19:48 Dose: Not Given Documented by: Artificial Tears (Artificial Tear Drops) 1 drops BOTH EYES QID PRN PRN Reason: Dry Eye(s) Last Admin: 11/12/19 08:10 Dose: 1 drops Documented by: Budesonide (Pulmicort) 1 mg INHALATION RT-BID [facility] Last Admin: 11/18/19 19:01 Dose: 1 mg Documented by: Chlorhexidine Gluconate (Peridex) 15 ml MUCOUS MEM BID [facility] Last Admin: 11/18/19 20:48 Dose: 15 ml Documented by: Darbepoetin Corey (Aranesp) 40 mcg SQ Q7D [facility] Last Admin: 11/16/19 12:01 Dose: 40 mcg Documented by: Formoterol Fumarate (Perforomist) 20 mcg INHALATION RT-BID [facility] Last Admin: 11/18/19 19:01 Dose: 20 mcg Documented by: Piperacillin Sod/Tazobactam (Sod 3.375 gm/ Sodium Chloride) 100 mls @ 25 mls/hr IVPB Q12H [facility] Last Admin: 11/18/19 12:48 Dose: 25 mls/hr Documented by: Propofol 1,000 mg/ IV Solution 100 mls @ 0 mls/hr IV .Q0M [facility]; Protocol Last Admin: 11/18/19 20:47 Dose: 25 mcg/kg/min, 13.8 mls/hr Documented by: Sodium Chloride (Saline 0.9%) 1,000 mls @ 75 mls/hr IV .[id number] [facility] Last Admin: 11/18/19 11:55 Dose: 75 mls/hr Documented by: Norepinephrine Bitartrate 4 mg (/ Sodium Chloride) 254 mls @ 17.526 mls/hr IV .[id number] [facility]; Protocol Last Titration: 11/18/19 22:14 Dose: 0.06 mcg/kg/min, 21.031 mls/hr Documented by: Insulin Aspart (Novolog) 0 unit SQ Q6H [facility]; Protocol Levothyroxine Sodium (Synthroid) 125 mcg PO DAILY@0630 [facility] Last Admin: 11/18/19 06:09 Dose: Not Given Documented by: Lidocaine (Lidoderm) 1 patch TOPICAL DAILY [facility] Last Admin: 11/18/19 10:18 Dose: Not Given Documented by: Metoprolol Tartrate (Lopressor) 50 mg PO TID [facility] Last Admin: 11/18/19 19:48 Dose: Not Given Documented by: Miscellaneous Information (Potassium Per Protocol) 1 each MISCELLANE DAILY PRN; Protocol PRN Reason: Per Protocol Miscellaneous Information (Magnesium Per Protocol) 1 each MISCELLANE DAILY PRN; Protocol PRN Reason: Per Protocol Miscellaneous Information (Phosphorus Per Protocol) 1 each MISCELLANE DAILY PRN; Protocol PRN Reason: Per Protocol Naloxone HCl (Narcan) 0.2 mg IV Q2M PRN PRN Reason: Opioid Reversal Nicotine (Habitrol 14mg/24hr Patch) 1 patch TRANSDERM DAILY [facility] Last Admin: 11/18/19 09:05 Dose: 1 patch Documented by: Pantoprazole Sodium (Protonix) 40 mg IV BID [facility] Last Admin: 11/18/19 20:48 Dose: 40 mg Documented by: Pregabalin (Lyrica) 50 mg PO BID [facility] Last Admin: 11/18/19 19:49 Dose: Not Given Documented by: Objective - Vital Signs Vital signs: Vital Signs Temp 98.3 F 11/19/19 20:00 Pulse 75 11/19/19 22:00 Resp 17 11/19/19 22:00 BP 133/39 11/19/19 11:11 Pulse Ox 96 01/02/20 22:00 Intake & Output 11/19/19 11/19/19 11/20/19 06:59 18:59 06:59 Intake Total 6494.522 4781.9 300 Output Total 515 1989 Balance 698.334 -627.1 -425 Intake: IV 1000 1000 300 Piperacillin-Tazobactam 3 100 100 .375 gm In Sodium Chloride 0.9% 100 ml @ 25 mls/hr IVPB Q12H [facility] Rx# :[id number] Sodium Chloride 0.9% 1, 900 900 300 000 ml @ 75 mls/hr IV . [id number] [facility] Rx#:[id number] Intake, IV Titration 213.334 52.9 Amount Norepinephrine 4 mg In 113.334 Sodium Chloride 0.9% 250 ml @ 0.05 MCG/KG/MIN 17. 526 mls/hr IV .[id number] [facility] Rx#:[id number] Propofol 1,000 mg In 100.00 52.9 Empty Bag 1 bag @ Titrate IV .Q0M [facility] Rx#: [id number] Blood Product 310 Rc Pheresis As-3 Unit 310 [id number] Output: Gastric Drainage 170 Urine 345 1989 Other: Voiding Method Indwelling Catheter Indwelling Catheter Indwelling Catheter ABP, PAP, CO, CI - Last Documented Arterial Blood Pressure 149/33 - Exam PHYSICAL EXAMINATION: Patient is lying in the bed comfortably, on mechanical ventilator and sedated... HEENT: Normocephalic. Neck is supple. Pupils reactive. Nostrils clear. Oral cavity is moist. Ears reveal no drainage. Neck reveals no JVD, carotid bruits, or thyromegaly. CHEST EXAMINATION: Trachea is central. Symmetrical expansion. ET tube in place Bibasilar diminished air entry and scattered rhonchi. CARDIAC: Normal S1, S2 with no gallops. No murmurs ABDOMEN: Soft. Bowel sounds normal. No organomegaly. No abdominal bruits. Extremities: 1+ edema. No clubbing or cyanosis Neurologically sedated and intubated. No gross focal deficits noted Skin: No rash or skin lesions. Psychiatric: Could not be assessed Musculoskeletal: No joint swelling or deformity. - Labs CBC & Chem 7: 11/20/19 04:10 11/20/19 04:10 Labs: Abnormal Lab Results - Last 24 Hours (Table) 11/16/19 11/18/19 11/19/19 Range/Units 09:46 23:44 04:50 RBC (4.30-5.90) m/uL Hgb (13.0-17.5) gm/dL Hct (39.0-53.0) % RDW (11.5-15.5) % Lymphocytes # (1.0-4.8) k/uL ABG O2 Saturation (94-97) % Potassium 3.4 L (3.5-5.1) mmol/L Chloride 113 H (98-107) mmol/L Carbon Dioxide (22-30) mmol/L BUN 44 H (9-20) mg/dL Creatinine 4.43 H (0.66-1.25) mg/dL Glucose 124 H (74-99) mg/dL POC Glucose (mg/dL) 156 H (75-99) mg/dL Calcium 7.3 L (8.4-10.2) mg/dL Phosphorus 5.0 H (2.5-4.5) mg/dL Crossmatch See Detail 11/19/19 11/19/19 11/19/19 Range/Units 05:00 05:20 05:20 RBC 2.20 L (4.30-5.90) m/uL Hgb 6.4 L* D (13.0-17.5) gm/dL Hct 19.7 L* (39.0-53.0) % RDW (11.5-15.5) % Lymphocytes # (1.0-4.8) k/uL ABG O2 Saturation 97.3 H (94-97) % Potassium (3.5-5.1) mmol/L Chloride 113 H (98-107) mmol/L Carbon Dioxide 21 L (22-30) mmol/L BUN 43 H (9-20) mg/dL Creatinine 4.53 H (0.66-1.25) mg/dL Glucose 121 H (74-99) mg/dL POC Glucose (mg/dL) (75-99) mg/dL Calcium 7.5 L (8.4-10.2) mg/dL Phosphorus 5.2 H (2.5-4.5) mg/dL Crossmatch 11/19/19 11/19/19 11/19/19 Range/Units 05:53 15:35 18:13 RBC 2.75 L (4.30-5.90) m/uL Hgb 7.9 L D (13.0-17.5) gm/dL Hct 24.1 L (39.0-53.0) % RDW 16.6 H (11.5-15.5) % Lymphocytes # 0.8 L (1.0-4.8) k/uL ABG O2 Saturation (94-97) % Potassium (3.5-5.1) mmol/L Chloride (98-107) mmol/L Carbon Dioxide (22-30) mmol/L BUN (9-20) mg/dL Creatinine (0.66-1.25) mg/dL Glucose (74-99) mg/dL POC Glucose (mg/dL) 134 H 109 H (75-99) mg/dL Calcium (8.4-10.2) mg/dL Phosphorus (2.5-4.5) mg/dL Crossmatch 11/19/19 Range/Units 18:25 RBC (4.30-5.90) m/uL Hgb (13.0-17.5) gm/dL Hct (39.0-53.0) % RDW (11.5-15.5) % Lymphocytes # (1.0-4.8) k/uL ABG O2 Saturation (94-97) % Potassium (3.5-5.1) mmol/L Chloride (98-107) mmol/L Carbon Dioxide (22-30) mmol/L BUN (9-20) mg/dL Creatinine (0.66-1.25) mg/dL Glucose (74-99) mg/dL POC Glucose (mg/dL) 104 H (75-99) mg/dL Calcium (8.4-10.2) mg/dL Phosphorus (2.5-4.5) mg/dL Crossmatch Microbiology - Last 24 Hours (Table) 11/18/19 08:08 Urine Culture - Final Urine,Voided 11/18/19 18:00 Catheter Tip Culture - Preliminary Catheter Tip 11/18/19 06:15 Blood Culture - Preliminary Blood No Growth after 24 hours 11/18/19 06:08 Blood Culture - Preliminary Blood No Growth after 24 hours Assessment and Plan Assessment: -Acute cardiopulmonary arrest. Status post CPR and that her asthma spontaneous circulation. Patient is extubated on 11/19/2019. -Acute blood loss anemia secondary to duodenal ulcer. Status post exploratory laparotomy and oversewing of duodenal ulcer on 11 01 2019 Patient is status post EGD/colonoscopy which revealed duodenal ulcer without any active bleeding with the large interior clot in the second portion of duodenum; colonoscopy revealed ischemic colitis and left colon. Patient is presently on Protonix twice a day. No signs of active bleeding now. Recent drop in hemoglobin could be secondary to anemia of inflammation and chronic disease. -Acute hypoxic respiratory failure with bilateral pleural effusion and atelectasis. was on mechanical ventilator.extubated on 11 05 2019 -coronary artery disease continue with metoprolol hold off aspirin because of GI bleed -Hypertension patient is presently hypotensive secondary to GI bleed holding off on lisinopril, hydralazine. -acute kidney injury. Possible ATN. Creatinine today is 3.03 -acute blood loss anemia due to GI bleed. 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 -PTSD and paranoid ideation. -Continued nicotine use: -DVT prophylaxis with SCDs due to GI leed -CODE STATUS is DO NOT RESUSCITATE/DO NOT INTUBATE plan: Patient is currently extubated. Continue with oxygen with via nasal cannula. Monitor H&H... Monitor renal function due to worsening creatinine level. continue with antibioticsin the form ofZosyn and Diflucan.. Continue with Protonix. started on oral diet. passed Swallow evaluation. advance diet as tolerated. Wa s on TPN. pulmonary and General surgery is following.prognosis is guarded at this time.discussed with his at bedside. Time with Patient: Greater than 30
--- NOTE | 2019-11-20 21:53 | P.PN ---
Subjective Progress Note Date: 11/20/19 Principal diagnosis: GI bleed; status post EGD/colonoscopy Duodenal ulcer/ischemic colitis 10/30/2017 patient seen in follow-up in the intensive care unit; patient's family is at bedside and had multiple questions which were all addressed to her satisfaction; patient is status post EGD/colonoscopy which revealed a duodenal ulcer, that was not actively bleeding with a large anterior and clot in the second portion of the duodenum. Colonoscopy revealed ischemic colitis in the left colon with biopsies taken. However the procedure had to be aborted related to poor prep. Lab review shows hemoglobin is 6.8, patient has had 2 units of blood already, and he is receiving an additional unit of blood this morning. Hemodynamically patient is stable, receiving IV fluids, with 0.9 normal saline at a rate of 100 ML per hour. He remains on high flow oxygen, at 10 L and his pulse ox is 92- 93%. Complaints of chest pain, patient does have exertional dyspnea, today's chest x-ray has been reviewed, showing bibasilar atelectasis and bilateral pleural effusions. Patient is still getting IV fluids at a rate of 100, we will turn it was down, and give the patient a dose of IV Lasix, today's labs have been reviewed, showing white blood cell count 8.3, hemoglobin of 6.8, platelet count 293, sodium was 143, potassium was 5.4, chloride was 117, CO2 was 22, BUN was 53, creatinine was 2.94. No report of any further rectal bleeding; we will continue to monitor H&H closely and transfuse when needed 10/31/2019 patient is seen and evaluatedin follow-up in the intensive care unit. He is awake and alert in no acute distress. His hemoglobin was 6.6 earlier this morning. He is receiving his fourth unit of packed red blood cells in total this admission. He did undergo an EGD this morning and was found to have a large adherent clot along the duodenal sweep which was removed. A deep ulcerati on with active bleeding was visible. Epinephrine and Endo Clip placement obtained good hemostasis. There are large clots in the stomach. NG tube remains in place. He remains on Protonix 40 mg every 12 hours. Surgical consult was placed. He is currently afebrile. Hemodynamically stable. He is on 10 L high flow nasal cannula to maintain O2 saturations in the mid 90s. 0.9 normal saline at 50 MLS per hour. Remains on Unasyn. Chest x-ray shows some evidence of fluid volume overload and small effusions. White count 5.1. Creatinine 2.77. patient's family is at bedside and on inquiring about transferring the patient to [place]; did advise and son that patient is unstable at this time and family will have to discuss this with case management on Saturday11/01/2019 Patient is seen and evaluated in the room at bedside; patient has been having profuse rectal bleeding; patient underwent EGD which showed bleeding duodenal ulcer, Endo Clip was applied; patient had an episode of dark stools during the night but started bleeding profusely this afternoon; stat H&H is done which shows hemoglobin at 6.0; patient has been started on IV Levophed to maintain blood pressure; patient was evaluated by GI, ICU team and surgery and was recommended transferred to a tertiary care center; [facility] was consulted and transfer arrangements to [facility] surgical ICU were made; patient was deemed unstable for transfer and is taken to OR by the surgical team. 11/02/2019 patient wasadmitted to the hospital with upper GI bleed and was found have duodenal ulcer. due to active bleeding patient was taken to operating room for exploratory laparotomy. Postoperatively patient was intubated. Patient is currently remained on mechanical ventilator. chest x-ray showed bilateral pleural effusions mainly right side with atelectatic changes. Patient is on Levothroid drip and his IV FLUIDS. HEMOGLOBIN8.8, potassium 5.7, BUN/creatinine 46/ 2.89 11/03/2019 Patient iscurrentlyremained on mechanical ventilator. Hemoglobin 7.1 today. Patient initially received 8 units of PRBC transfusion preoperatively.Patient is still requiring pressor support on and off. Patient is currently on NG tube. TPN is being started today. chest x-ray showed improvement of atelectatic changes in the lung bases and small pleural effusion. patient has been afebrile. No abdominal distention. Surgical wound is intact. No leukocytosis. bUN/creatinine 43 x 3.13 11/04/2019 Patient is currently on mechanical ventilator. Postoperative day 3. Status post laparotomy and oversewing of duodenal ulcer. patient is currently on TPN. patient is on sedation holiday and is easily arousable. Hemoglobin is fairly stable at 7.9 today. No further episodes of GI bleed.Chest x-ray showed bilateral pleural effusions worse on the right. Ultrasound of the kidneys showed no evidence ofhydronephrosis. Creatinine level isimproving to 2.8 today.Pulmonary and GI is following. 11 05 2019 patient is postoperative day 4, status post laparotomy and oversewing of the urinalysis. Hemoglobin did improve to 8.7 today.patient is being continued on IV Lasix due to pleural effusion. Currently on norepinephrinewhich is being weaned off slowly. Patient is stable at creatinine level II.8.no signs of active GI bleed. IVELISSE drain is in place. Patient is being prepared for weaning prior.patient has been afebrile.Chest x- ray showedoverall stable findingssmall to moderate size right greater than left pleural effus with mild central vascular congestion. 11/06/2019 Patient was successfully extubated yesterday. Currently postoperative day 5. Status post exploratorylaparotomy and oversewing of duodenal ulcer. Hemoglobin is stable and improving at 9.8 today. Creatinine level is 3.03. p eripheral edema is improv patient was diuresing well vascular congestion. Currently onoxygen nasal canula. patient wants to eat Swallow evaluation is pending.currently on TPN chest x-ray showed bilateral pleural effusions right greater than left Patient has been Afebrile 11/07/2019 Patient denied any complaints of abdominal pain. Hemoglobin is stable and improved to 9.7. Hemodynamically stable. Off pressor support. Status post explored laparotomy and oversewing of duodenal ulcer due to GI bleed. Patient was extubated. urrently patient is tolerating clear liquids. Does have generalized weakness Is improving. Currently on IV Lasix. Chest x-ray showed improvement in volume status without any significant abnormalities. Mild pulmonary vascular congestion without yaya pulmonary laura a. patient has been afebrile.patient is awake alert and oriented. sometimes paranoid.still on TPN for nutritional support. Currently maintaining sinus rhythm. 11/08/2019 Patient is awake alert but confused. Tolerating liquids. No complaints of nausea or vomiting. Patient is still on TPN. Hemoglobin is at 8.6 today. Patient is status post exploratory laparotomy and oversewing of duodenal ulce r.postoperative 7 The patient had several runs of SVT yesterday with a heart rate ranging between 140 and 160. He was given adenosine which converted him and subsequently went back. Following that, the patient was started on amiodarone drip which put him in sinus rhythm and the drip is still running at 0.5 mg per KG per minute. continued onIV Lasix.leg swelling is improving. Patient has been afebrile. Currently on antibiotics in the form of Zosyn and Diflucan. Chest x-ray showedimproved infiltrates. 11/09/2019 Patient is postoperative day 8 status post explorative laparotomy and or seeing of duodenal ulcer. Hemoglobin level improved to 9.6 now. Patient's mental status is much improved compared to yesterday. Less confused today. Tolerating oral diet and is being advanced. BUE and is 42 and creatinine 2.17. Currently on oxygen via nasal cannula 6 L. Chest x-ray showed atelectasis at bases. Patient was on IV Lasix due to pleural effusion. SVT was resolved. Patient was given Adenosine yesterday. patient is being transferred to medical floor today. The pressure is still elev ated. Continued on metoprolol and Norvasc. Added hydralazineas per his home dose. Currently on antibiotics in the form of Zosyn and Diflucan. 11/16/2019 Patient is currently lying in the bed. Complains of generalized weakness and fatigue. Hemoglobin level is 6.8 today. 1 unit of PRBC blood transfusion was ordered. There is patient is still requiring high flow oxygen with another cannula. Patient was given IV Lasix. Otherwise patient is tolerating oral diet. Denied any nausea or vomiting. No abdominal pain. Denied any dark colored bowel movements. No complaints of chest pain. No fever no chills. Pulmonary and general surgery is following. 11/17/2019 Patient is currently sitting on the side of the bed in the chair. Still requiring oxygen high flow. On airvo 70% FiO2 otherwise hemoglobin level increased to 8.2 status post 1 unit of PRBC transfusion. No complaints of nausea vomiting abdominal pain. No diarrhea or dysuria. Patient has been afebrile. Denied any abdominal pain. Patient is tolerating oral diet. No complaints of chest pain or worsening shortness of breath. 11/18/2019 Overnight patient had cardiopulmonary arrest with a down time of 8 minutes. Patient was intubated and is currently on mechanical ventilator. Chest x-ray showed worsening pulmonary edema and CHF. Otherwise patient's renal function is worsening with creatinine level went up to 4.59. Hemoglobin stable. No signs of active bleeding noted. Prognosis is guarded with worsening clinical status. Discussed with family at bedside. Pulmonary and nephrology is following.. 11/19/2019 Patient was extubated today. Currently in the MICU. Patient is currently lying in the bed comfortable. Saturating well on nasal cannula oxygen. Hemoglobin is 6.4. No signs of active bleeding. Patient is off pressor support. Creatinine 4.53, hemoglobin went up to 7.9 with 1 unit of PRBC transfusion. Chest x-ray showed continued interstitial and patchy airspace opacities, possible CHF with interstitial edema. Pulmonary, surgery and nephrology is following. 11/20/2019 Patient is currently in the intensive care unit. Patient was extubated yesterday and is currently on high flow cannula 10 L. Denied any complaints of chest pain or worsening shortness of breath. Patient has been afebrile. Hemoglobin went up to 8.3 today. Creatinine level improved at 4.26 Denied any abdominal pain. Tolerating oral diet. Chest x-ray showed worsening right lung infiltrate possibly related to atelectasis and improving left lower lobe infiltrate and minimal left and small right pleural effusions. Cultures have been negative so far. Patient remained on antibiotics in the form of Zosyn and Diflucan. Current medications reviewed. Active Medications Active Medications Albuterol/Ipratropium (Duoneb 0.5 Mg-3 Mg/3 Ml Soln) 3 ml INHALATION RT-QID [facility] Albuterol/Ipratropium (Duoneb 0.5 Mg-3 Mg/3 Ml Soln) 3 ml INHALATION RT-Q2H PRN PRN Reason: Shortness Of Breath Or Wheezing Amiodarone HCl (Cordarone) 200 mg PO BID [facility] Last Admin: 11/20/19 21:27 Dose: 200 mg Documented by: Artificial Tears (Artificial Tear Drops) 1 drops BOTH EYES QID PRN PRN Reason: Dry Eye(s) Last Admin: 11/12/19 08:10 Dose: 1 drops Documented by: Budesonide (Pulmicort) 1 mg INHALATION RT-BID [facility] Last Admin: 11/20/19 20:09 Dose: 1 mg Documented by: Darbepoetin Corey (Aranesp) 40 mcg SQ Q7D [facility] Last Admin: 11/16/19 12:01 Dose: 40 mcg Documented by: Formoterol Fumarate (Perforomist) 20 mcg INHALATION RT-BID [facility] Last Admin: 11/20/19 20:09 Dose: 20 mcg Documented by: Piperacillin Sod/Tazobactam (Sod 3.375 gm/ Sodium Chloride) 100 mls @ 25 mls/hr IVPB Q12H [facility] Last Admin: 11/20/19 12:07 Dose: 25 mls/hr Documented by: Sodium Chloride (Saline 0.9%) 1,000 mls @ 50 mls/hr IV .Q20H [facility] Last Admin: 11/20/19 09:17 Dose: 50 mls/hr Documented by: Norepinephrine Bitartrate 4 mg (/ Sodium Chloride) 254 mls @ 17.526 mls/hr IV .[id number] [facility]; Protocol Last Admin: 11/20/19 16:04 Dose: Not Given Documented by: Insulin Aspart (Novolog) 0 unit SQ ACHS [facility]; Protocol Last Admin: 11/20/19 21:14 Dose: 2 unit Documented by: Levothyroxine Sodium (Synthroid) 125 mcg PO DAILY@0630 [facility] Last Admin: 11/20/19 09:10 Dose: 125 mcg Documented by: Lidocaine (Lidoderm) 1 patch TOPICAL DAILY [facility] Last Admin: 11/20/19 09:12 Dose: Not Given Documented by: Metoprolol Tartrate (Lopressor) 50 mg PO TID [facility] Last Admin: 11/20/19 21:27 Dose: 50 mg Documented by: Miscellaneous Information (Potassium Per Protocol) 1 each MISCELLANE DAILY PRN; Protocol PRN Reason: Per Protocol Miscellaneous Information (Magnesium Per Protocol) 1 each MISCELLANE DAILY PRN; Protocol PRN Reason: Per Protocol Miscellaneous Information (Phosphorus Per Protocol) 1 each MISCELLANE DAILY PRN; Protocol PRN Reason: Per Protocol Naloxone HCl (Narcan) 0.2 mg IV Q2M PRN PRN Reason: Opioid Reversal Nicotine (Habitrol 14mg/24hr Patch) 1 patch TRANSDERM DAILY [facility] Last Admin: 11/20/19 09:10 Dose: 1 patch Documented by: Pantoprazole Sodium (Protonix) 40 mg IV BID [facility] Last Admin: 11/20/19 21:28 Dose: 40 mg Documented by: Pregabalin (Lyrica) 50 mg PO BID [facility] Last Admin: 11/20/19 21:28 Dose: 50 mg Documented by: Objective - Vital Signs Vital signs: Vital Signs Temp 98.2 F 11/20/19 16:00 Pulse 74 11/20/19 20:22 Resp 21 11/20/19 19:00 BP 138/64 11/20/19 15:00 Pulse Ox 92 L 11/20/19 20:09 Intake & Output 11/20/19 11/20/19 11/21/19 06:59 18:59 06:59 Intake Total 900 750 Output Total 1810 1095 Balance -910 -345 Intake: IV 900 650 Sodium Chloride 0.9% 1, 900 650 000 ml @ 50 mls/hr IV . Q20H [facility] Rx#:[id number] Intake, IV Titration 100 Amount Potassium Chloride 20 meq 100 In Water For Injection 1 100ml.bag @ 50 mls/hr IVPB ONCE STA Rx#: [id number] Output: Urine 1810 1095 Other: Voiding Method Indwelling Catheter Indwelling Catheter ABP, PAP, CO, CI - Last Documented Arterial Blood Pressure 168/45 - Exam PHYSICAL EXAMINATION: Patient is lying in the bed comfortably, no acute distress, awake alert and oriented.. HEENT: Normocephalic. Neck is supple. Pupils reactive. Nostrils clear. Oral cavity is moist. Ears reveal no drainage. Neck reveals no JVD, carotid bruits, or thyromegaly. CHEST EXAMINATION: Trachea is central. Symmetrical expansion. Bibasilar crackles and diminished air entry. Scattered rhonchi. CARDIAC: Normal S1, S2 with no gallops. No murmurs ABDOMEN: Soft. Abdominal surgical site is intact, healing well.. Bowel sounds normal. No organomegaly. No abdominal bruits. Extremities: reveal no edema. No clubbing or cyanosis Neurologically awake, alert, oriented x3 with well-coordinated movements. No focal deficits noted Skin: No rash or skin lesions. Psychiatric: Coperative. Nonsuicidal Musculoskeletal: No joint swelling or deformity. Normal range of motion. - Labs CBC & Chem 7: 11/20/19 04:10 11/20/19 04:10 Labs: Abnormal Lab Results - Last 24 Hours (Table) 11/19/19 11/20/19 11/20/19 Range/Units 23:55 04:10 04:10 RBC 2.95 L (4.30-5.90) m/uL Hgb 8.3 L (13.0-17.5) gm/dL Hct 25.6 L (39.0-53.0) % RDW 16.6 H (11.5-15.5) % Lymphocytes # 0.8 L (1.0-4.8) k/uL Chloride 114 H (98-107) mmol/L BUN 40 H (9-20) mg/dL Creatinine 4.26 H (0.66-1.25) mg/dL POC Glucose (mg/dL) 107 H (75-99) mg/dL Calcium 8.1 L (8.4-10.2) mg/dL 11/20/19 11/20/19 11/20/19 Range/Units 06:07 11:59 16:42 RBC (4.30-5.90) m/uL Hgb (13.0-17.5) gm/dL Hct (39.0-53.0) % RDW (11.5-15.5) % Lymphocytes # (1.0-4.8) k/uL Chloride (98-107) mmol/L BUN (9-20) mg/dL Creatinine (0.66-1.25) mg/dL POC Glucose (mg/dL) 113 H 132 H 139 H (75-99) mg/dL Calcium (8.4-10.2) mg/dL 11/20/19 Range/Units 20:31 RBC (4.30-5.90) m/uL Hgb (13.0-17.5) gm/dL Hct (39.0-53.0) % RDW (11.5-15.5) % Lymphocytes # (1.0-4.8) k/uL Chloride (98-107) mmol/L BUN (9-20) mg/dL Creatinine (0.66-1.25) mg/dL POC Glucose (mg/dL) 184 H (75-99) mg/dL Calcium (8.4-10.2) mg/dL Microbiology - Last 24 Hours (Table) 11/18/19 04:05 Gram Stain - Final Sputum Sputum Culture - Final 11/18/19 06:15 Blood Culture - Preliminary Blood No Growth after 48 hours 11/18/19 06:08 Blood Culture - Preliminary Blood No Growth after 48 hours 11/18/19 18:00 Catheter Tip Culture - Preliminary Catheter Tip Assessment and Plan Assessment: -Acute cardiopulmonary arrest. Status post CPR and return of spontaneous circulation. Patient is extubated on 11/19/2019. -Acute blood loss anemia secondary to duodenal ulcer. Status post exploratory laparotomy and oversewing of duodenal ulcer on 11 01 2019 Patient is status post EGD/colonoscopy which revealed duodenal ulcer without any active bleeding with the large interior clot in the second portion of duodenum; colonoscopy revealed ischemic colitis and left colon. Patient is presently on Protonix twice a day. No signs of active bleeding now. Recent drop in hemoglobin could be secondary to anemia of inflammation and chronic disease. -Acute hypoxic respiratory failure with bilateral pleural effusion and atelectasis. was on mechanical ventilator.extubated on 11 05 2019 -coronary artery disease continue with metoprolol hold off aspirin because of GI bleed -Hypertension patient is presently hypotensive secondary to GI bleed holding off on lisinopril, hydralazine. -acute kidney injury. Possible ATN. Creatinine today is 3.03 -acute blood loss anemia due to GI bleed. 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 -PTSD and paranoid ideation. -Continued nicotine use: -DVT prophylaxis with SCDs due to GI leed -CODE STATUS is DO NOT RESUSCITATE/DO NOT INTUBATE plan: Patient is currently extubated. Continue with oxygen with via nasal cannula. Patient is on high flow oxygen at 10 L. Monitor H&H... Monitor renal function due to worsening creatinine level. continue with antibioticsin the form ofZosyn and Diflucan.. Continue with Protonix. started on oral diet. passed Swallow evaluation. Tolerating regular diet.. Was on TPN. pulmonary and General surgery is following.prognosis is guarded at this time.discussed with his at bedside. Time with Patient: Greater than 30
[2019-11-21] MEDS: PIPERACILLIN-TAZOBACTAM 3.375 GM in SODIUM CHLORIDE 0.9% 100 ML IVPB SCH ×2 (00:40→12:16)
[2019-11-21 05:35] LABS: Anisocytosis Slight; Basophils % (A) 0 %; Eosinophils # (A) 0.2 k/uL (0-0.7); Eosinophils % (A) 4 %; HCT 23.2 % (39.0-53.0); HGB 7.4 gm/dL (13.0-17.5); Hypochromasia Slight; Lymphocytes # (A) 0.9 k/uL (1.0-4.8); Lymphocytes % (A) 18 %; MCH 28.7 pg (25.0-35.0); MCHC 31.9 g/dL (31.0-37.0); MCV 89.8 fL (80.0-100.0); Monocytes # (A) 0.2 k/uL (0-1.0); Monocytes % (A) 5 %; Neutrophils # (A) 3.5 k/uL (1.3-7.7); Neutrophils % (A) 71 %; Platelet Count 186 k/uL (150-450); RBC 2.59 m/uL (4.30-5.90); RDW 16.4 % (11.5-15.5); WBC 4.9 k/uL (3.8-10.6)
[2019-11-21 05:43] LABS: Calcium 8.4 mg/dL (8.4-10.2)
[2019-11-21] MEDS: LEVOTHYROXINE 125 MCG TAB PO SCH (06:45)
[2019-11-21] MEDS: SODIUM CHLORIDE 0.9% 1,000 ML IV SCH (06:49)
[2019-11-21] MEDS: INSULIN ASPART (NovoLOG) 100 UNIT/ML VIAL SQ SCH ×3 (07:13→18:35)
[2019-11-21 07:21] LABS: Glucose,Whole Blood 142 mg/dL (75-99)
[2019-11-21 07:22] LABS: ABG Base Excess -5.7 mmol/L; ABG HCO3 23 mmol/L (21-25); ABG Oxygen Saturation 94.7 % (94-97); ABG PCO2 66 mmHg (35-45); ABG PO2 84 mmHg (83-108); ABG TCO2 25 mmol/L (19-24); Allen Test Performed? Yes
[2019-11-21 07:25] LABS: ABG PH 7.16 (7.35-7.45)
--- NOTE | 2019-11-21 07:32 | XR ---
EXAMINATION TYPE: XR chest 1V portable DATE OF EXAM: 11/21/2019 Comparison: 11/20/2019 Clinical History: 79-year-old male Tube placement Findings: Left CVC tip remains in the lower SVC. Persistent moderate right pleural effusion, diffuse interstiti al densities, and bibasilar opacities. Right heart margin obscured by adjacent pleural parenchymal op acity. Impression: Continued moderate right pleural effusion with prominent bibasilar atelectasis and/or consolidation. Interstitial prominence could reflect background of mild pulmonary vascular congestion.
[2019-11-21] MEDS: PROPOFOL 1,000 MG in EMPTY BAG 1 BAG IV SCH ×3 (08:05→15:15)
--- NOTE | 2019-11-21 08:27 | XR ---
EXAMINATION TYPE: XR chest 1V portable DATE OF EXAM: 11/21/2019 Comparison: 11/21/2019 Clinical History: 79-year-old male Tube placement Findings: NG tube courses below the diaphragm. ET tube now present. Lois is not well seen. The tube tip may b e just entering the right mainstem bronchus. Pull back 2.5 cm in recess at follow-up. Large overlying skin fold. Heart mildly enlarged. Continued moderate right pleural effusion, diffuse interstitial ch anges, and bibasilar opacities. Left IJ CVC tip at the lower SVC. Impression: 1. Interval placement of ET tube. The lois is not well seen. The tip of the tube may be just enteri ng the right mainstem bronchus. Pull back 2.5 cm and reassess at follow-up. 2. Otherwise, relatively stable exam from earlier today.
[2019-11-21 08:41] LABS: ABG Base Excess -5.3 mmol/L; ABG HCO3 22 mmol/L (21-25); ABG Oxygen Saturation 98.7 % (94-97); ABG PCO2 54 mmHg (35-45); ABG PH 7.23 (7.35-7.45); ABG PO2 132 mmHg (83-108); ABG TCO2 24 mmol/L (19-24); Allen Test Performed? Yes
[2019-11-21] MEDS: BUDESONIDE 1 MG/2 ML NEBU INHALATION SCH ×2 (08:58→19:36)
[2019-11-21] MEDS: IPRATROPIUM-ALBUTEROL 3 ML NEB INHALATION SCH ×4 (08:58→19:36)
[2019-11-21] MEDS: FORMOTEROL FUMARATE 20 MCG/2 ML NEBU INHALATION SCH ×2 (08:58→19:36)
[2019-11-21] MEDS ORDERED: CHLORHEXIDINE GLUCONATE 15 ML CUP MUCOUS MEM SCH (09:00)
[2019-11-21] MEDS: METOPROLOL TARTRATE 50 MG TAB PO SCH (10:04)
[2019-11-21] MEDS: AMIODARONE 200 MG TAB PO SCH (10:04)
[2019-11-21] MEDS: PANTOPRAZOLE 40 MG/10 ML VIAL IV SCH (10:08)
[2019-11-21] MEDS: NICOTINE 14MG/24HR PATCH TRANSDERM SCH (10:10)
--- NOTE | 2019-11-21 10:43 | P.PN ---
Progress Note - Text Progress Note Date: 11/21/19 She apparently got reintubated this morning due to respiratory failure. He has shown no signs of rebleeding from his duodenal ulcer. His hemoglobin is 7.4. On exam his vital signs are stable. There is bilious fluid in the NG tube. Abdomen soft. Incision site is clean dry intact. Status post repair of bleeding duodenal ulcer. Patient has had respiratory failure overnight. Apparently the patient was not supposed be reintubated however he has been intubated. The family is questioning the possibility of transfer to a higher level of care. They will discuss with Dr. Dewitt his respiratory issues.
--- NOTE | 2019-11-21 10:55 | PN ---
PROGRESS NOTE PULMONARY/CRITICAL CARE PROGRESS NOTE: CRITICAL CARE TIME: 35 minutes. DATE OF SERVICE: 11/21/2019 This is an 79-year-old male status post cardiopulmonary arrest with cardiopulmonary resuscitation. He did have a ventral return of spontaneous circulation. He was successfully extubated on November 18, 2019. The patient at that point was made a not to be reintubated patient. We had a long discussion with the family. Anyway, apparently last night and early this morning, his respiratory status declined. Apparently, the family at that point reversed their decision about code status and the patient again became a FULL CODE, and because of poor gases, poor gas exchange, increased respiratory effort and impending respiratory failure, the patient was reintubated on November 21. I note that his hemoglobin now is down to 7.4. Previously had a massive GI bleed. Anyway, he is on the volume assist-control mode rate of 20, tidal volume 450, FiO2 of 100% and PEEP of 5. Gases showed a pO2 of 132, pCO2 of 54, and a pH of 7.23. We decided to increase the rate from 20-24, decrease the tidal volume, decrease the FiO2 from 100% to 80% and bump the PEEP up to 8. He is getting saline at 50 mL an hour and propofol at 40 mcg/kg per minute. I will eventually talk to the family again. We have had previous multiple discussions with the family about code status. I am surprised that they changed their mind again and made the patient a FULL CODE. I feel like the patient should be transferred out as I think he is having ongoing blood loss from his previous GI bleed. His hemoglobin as I mentioned, is now down to 7.4. Previously, he had a massive GI bleed, requiring 11 units of packed red blood cells and 1 unit of fresh frozen plasma. Exploratory laparotomy revealed a bleeding duodenal ulcer and it was oversewed. He also has a history of possible ischemic colitis, acute hypoxemic respiratory failure, lactic acidemia, sleep apnea syndrome, hyperlipidemia, hypothyroidism, hypertension, diabetes, and degenerative joint disease. In addition, he likely has severe COPD as he smoked for more than 60 years. Current vital signs are reviewed. His temperature is 97.6, heart rate 60, respiratory rate 20, blood pressure 96/45 mean 62. His CVP is 7, saturations are 100%. Currently sedated. HEENT: Examination is grossly unremarkable. There is an orally placed endotracheal tube and NG tube. NECK: Supple, full range of motion. CARDIOVASCULAR: Examination reveals regular rhythm and rate. Heart rate 60. S1, S2 normal. Heart sounds are distant. LUNGS: Reveal coarse rhonchi throughout. No crackles or wheezes. Breath sounds equal. ABDOMEN: Soft. No bowel sounds. EXTREMITIES: Intact. Mild edema. SKIN: Without rash. NEUROLOGIC: Examination is difficult to assess given his current level of sedation. LABS: Reviewed. White count 4.9, hemoglobin is down to 7.4, hematocrit 23.2, platelet count 106,000. His blood gases prior to intubation were PO2 of 84, pCO2 of 66, and a pH is only 7.16. Subsequent to that, his blood gases as mentioned show a pO2 of 132, pCO2 of 54, and a pH of 7.23. This is status post intubation on the previous mentioned settings. Sodium 145, potassium 4, chloride 114, CO2 is 24,. anion gap is 7, BUN 39, creatinine 3.90. Microbiology is thus far completely negative. Chest x-ray shows diffuse bilateral infiltrates consistent with either pneumonia and/or fluid overload. Current medications are reviewed. ASSESSMENT: 1. Acute hypoxemic and hypercapnic respiratory failure, requiring re-intubation on November 21. The patient previously was successfully extubated on November 18. The previous reason for intubation was that of cardiopulmonary arrest with cardiopulmonary resuscitation and return of spontaneous circulation. The details of that arrest were unclear. 2. Acute hypoxemic and hypercapnic respiratory failure, requiring re-intubation on November 21, despite the fact that the family initially did not want the patient to be reintubated. 3. Acute blood loss anemia related to massive upper GI bleed, requiring 11 units of PRBCs and 1 unit FFP, secondary to duodenal ulcer, status post exploratory laparotomy and over-sewing of the ulcer. 4. History of duodenal ulcer with significant and massive GI bleed. 5. Possible ischemic colitis. 6. Bilateral pleural effusions. 7. Lactic acidemia. 8. History of obstructive sleep apnea syndrome, previously on CPAP. 9. History of hyperlipidemia. 10.Hypothyroidism. 11.Probable chronic obstructive pulmonary disease given his 60 years of tobacco use. 12.Benign essential hypertension. 13.Diabetes mellitus. 14.Degenerative joint disease. 15.Chronic kidney disease. 16.Multiple other medical problems and comorbidities. PLAN: The patient's medications are reviewed. Additional recommendations and suggestions are forthcoming. I will have another discussion with the family. I feel the patient should probably be transferred. Additional recommendations and suggestions are forthcoming. Medications again are reviewed. He is currently on Zosyn. I know the surgeons here will not take him back to the operating room. He is too high risk. Additional recommendations are forthcoming as mentioned. Prognosis is poor. CRITICAL CARE TIME: 36 minutes. BHAVNA / CADEN: [id number] /
[2019-11-21 11:56] LABS: Glucose,Whole Blood 124 mg/dL (75-99)
[2019-11-21 12:01] VITALS: RESP 24
[2019-11-21] MEDS: PREGABALIN 50 MG CAP PO SCH (12:30)
[2019-11-21] MEDS: NOREPINEPHRINE 4 MG in SODIUM CHLORIDE 0.9% 250 ML IV SCH (12:30)
--- NOTE | 2019-11-21 14:18 | PN ---
PROGRESS NOTE Patient is seen for followup for acute kidney injury. This morning patient was hypoxic and acidotic and was therefore reintubated. Family is present at bedside. They are concerned regarding his overall condition. And there is a discussion regarding possible terminal wean versus transfer to another facility. Urine output has been at about 25 to 30 mL an hour. Renal function is slightly better as compared to a day or two ago with creatinine at 3.9 from 4.5 on 11/19/2019. Overall, patient's renal condition is actually worse and this was discussed with the family as well. PHYSICAL EXAMINATION: Currently patient is on the vent. FiO2 80%. Blood pressure 110/32, heart rate 52 per minute he is afebrile examination of the heart S1, S2. Examination of the lungs, bilateral breath sounds are heard. Patient is intubated. Abdomen is distended, soft. Examination of the lower extremities shows trace edema bilaterally. [employer] exam not performed. LABS: Show sodium 145, potassium 4.0, chloride 114, CO2 is 24, BUN 39, creatinine 3.9, hemoglobin 7.4 g/dL. ASSESSMENT: 1. Acute kidney injury, acute tubular necrosis currently slightly improved however, worse from about mid October. UA is benign. No evidence of obstruction on the ultrasound. 2. Status post explorative laparotomy with duodenectomy and over-sewing of duodenal ulcer on November 01. 3. Acute GI bleed. 4. Atrial fibrillation with RVR, now rate is controlled. 5. Type 2 diabetes. PLAN: Continue off of IV fluids. Repeat labs in a.m. Overall prognosis is guarded. Respiratory failure, hypoxic, acute, currently on the vent. Rule out aspiration. MMODL / IJN: [id number] /
[2019-11-21 17:17] VITALS: TEMP 97.8
[2019-11-21] MEDS ORDERED: MORPHINE SULFATE 4 MG/ML SYRINGE ONE (19:10)
[2019-11-21 19:14] VITALS: BP 108/54; PULSE 56
--- NOTE | 2019-11-21 22:57 | P.PN ---
Subjective Progress Note Date: 11/21/19 Principal diagnosis: GI bleed; status post EGD/colonoscopy Duodenal ulcer/ischemic colitis 10/30/2017 patient seen in follow-up in the intensive care unit; patient's family is at bedside and had multiple questions which were all addressed to her satisfaction; patient is status post EGD/colonoscopy which revealed a duodenal ulcer, that was not actively bleeding with a large anterior and clot in the second portion of the duodenum. Colonoscopy revealed ischemic colitis in the left colon with biopsies taken. However the procedure had to be aborted related to poor prep. Lab review shows hemoglobin is 6.8, patient has had 2 units of blood already, and he is receiving an additional unit of blood this morning. Hemodynamically patient is stable, receiving IV fluids, with 0.9 normal saline at a rate of 100 ML per hour. He remains on high flow oxygen, at 10 L and his pulse ox is 92- 93%. Complaints of chest pain, patient does have exertional dyspnea, today's chest x-ray has been reviewed, showing bibasilar atelectasis and bilateral pleural effusions. Patient is still getting IV fluids at a rate of 100, we will turn it was down, and give the patient a dose of IV Lasix, today's labs have been reviewed, showing white blood cell count 8.3, hemoglobin of 6.8, platelet count 293, sodium was 143, potassium was 5.4, chloride was 117, CO2 was 22, BUN was 53, creatinine was 2.94. No report of any further rectal bleeding; we will continue to monitor H&H closely and transfuse when needed 10/31/2019 patient is seen and evaluatedin follow-up in the intensive care unit. He is awake and alert in no acute distress. His hemoglobin was 6.6 earlier this morning. He is receiving his fourth unit of packed red blood cells in total this admission. He did undergo an EGD this morning and was found to have a large adherent clot along the duodenal sweep which was removed. A deep ulcerati on with active bleeding was visible. Epinephrine and Endo Clip placement obtained good hemostasis. There are large clots in the stomach. NG tube remains in place. He remains on Protonix 40 mg every 12 hours. Surgical consult was placed. He is currently afebrile. Hemodynamically stable. He is on 10 L high flow nasal cannula to maintain O2 saturations in the mid 90s. 0.9 normal saline at 50 MLS per hour. Remains on Unasyn. Chest x-ray shows some evidence of fluid volume overload and small effusions. White count 5.1. Creatinine 2.77. patient's family is at bedside and on inquiring about transferring the patient to [place]; did advise and son that patient is unstable at this time and family will have to discuss this with case management on Saturday11/01/2019 Patient is seen and evaluated in the room at bedside; patient has been having profuse rectal bleeding; patient underwent EGD which showed bleeding duodenal ulcer, Endo Clip was applied; patient had an episode of dark stools during the night but started bleeding profusely this afternoon; stat H&H is done which shows hemoglobin at 6.0; patient has been started on IV Levophed to maintain blood pressure; patient was evaluated by GI, ICU team and surgery and was recommended transferred to a tertiary care center; [facility] was consulted and transfer arrangements to [facility] surgical ICU were made; patient was deemed unstable for transfer and is taken to OR by the surgical team. 11/02/2019 patient wasadmitted to the hospital with upper GI bleed and was found have duodenal ulcer. due to active bleeding patient was taken to operating room for exploratory laparotomy. Postoperatively patient was intubated. Patient is currently remained on mechanical ventilator. chest x-ray showed bilateral pleural effusions mainly right side with atelectatic changes. Patient is on Levothroid drip and his IV FLUIDS. HEMOGLOBIN8.8, potassium 5.7, BUN/creatinine 46/ 2.89 11/03/2019 Patient iscurrentlyremained on mechanical ventilator. Hemoglobin 7.1 today. Patient initially received 8 units of PRBC transfusion preoperatively.Patient is still requiring pressor support on and off. Patient is currently on NG tube. TPN is being started today. chest x-ray showed improvement of atelectatic changes in the lung bases and small pleural effusion. patient has been afebrile. No abdominal distention. Surgical wound is intact. No leukocytosis. bUN/creatinine 43 x 3.13 11/04/2019 Patient is currently on mechanical ventilator. Postoperative day 3. Status post laparotomy and oversewing of duodenal ulcer. patient is currently on TPN. patient is on sedation holiday and is easily arousable. Hemoglobin is fairly stable at 7.9 today. No further episodes of GI bleed.Chest x-ray showed bilateral pleural effusions worse on the right. Ultrasound of the kidneys showed no evidence ofhydronephrosis. Creatinine level isimproving to 2.8 today.Pulmonary and GI is following. 11 05 2019 patient is postoperative day 4, status post laparotomy and oversewing of the urinalysis. Hemoglobin did improve to 8.7 today.patient is being continued on IV Lasix due to pleural effusion. Currently on norepinephrinewhich is being weaned off slowly. Patient is stable at creatinine level II.8.no signs of active GI bleed. IVELISSE drain is in place. Patient is being prepared for weaning prior.patient has been afebrile.Chest x- ray showedoverall stable findingssmall to moderate size right greater than left pleural effus with mild central vascular congestion. 11/06/2019 Patient was successfully extubated yesterday. Currently postoperative day 5. Status post exploratorylaparotomy and oversewing of duodenal ulcer. Hemoglobin is stable and improving at 9.8 today. Creatinine level is 3.03. p eripheral edema is improv patient was diuresing well vascular congestion. Currently onoxygen nasal canula. patient wants to eat Swallow evaluation is pending.currently on TPN chest x-ray showed bilateral pleural effusions right greater than left Patient has been Afebrile 11/07/2019 Patient denied any complaints of abdominal pain. Hemoglobin is stable and improved to 9.7. Hemodynamically stable. Off pressor support. Status post explored laparotomy and oversewing of duodenal ulcer due to GI bleed. Patient was extubated. urrently patient is tolerating clear liquids. Does have generalized weakness Is improving. Currently on IV Lasix. Chest x-ray showed improvement in volume status without any significant abnormalities. Mild pulmonary vascular congestion without yaya pulmonary laura a. patient has been afebrile.patient is awake alert and oriented. sometimes paranoid.still on TPN for nutritional support. Currently maintaining sinus rhythm. 11/08/2019 Patient is awake alert but confused. Tolerating liquids. No complaints of nausea or vomiting. Patient is still on TPN. Hemoglobin is at 8.6 today. Patient is status post exploratory laparotomy and oversewing of duodenal ulce r.postoperative 7 The patient had several runs of SVT yesterday with a heart rate ranging between 140 and 160. He was given adenosine which converted him and subsequently went back. Following that, the patient was started on amiodarone drip which put him in sinus rhythm and the drip is still running at 0.5 mg per KG per minute. continued onIV Lasix.leg swelling is improving. Patient has been afebrile. Currently on antibiotics in the form of Zosyn and Diflucan. Chest x-ray showedimproved infiltrates. 11/09/2019 Patient is postoperative day 8 status post explorative laparotomy and or seeing of duodenal ulcer. Hemoglobin level improved to 9.6 now. Patient's mental status is much improved compared to yesterday. Less confused today. Tolerating oral diet and is being advanced. BUE and is 42 and creatinine 2.17. Currently on oxygen via nasal cannula 6 L. Chest x-ray showed atelectasis at bases. Patient was on IV Lasix due to pleural effusion. SVT was resolved. Patient was given Adenosine yesterday. patient is being transferred to medical floor today. The pressure is still elev ated. Continued on metoprolol and Norvasc. Added hydralazineas per his home dose. Currently on antibiotics in the form of Zosyn and Diflucan. 11/16/2019 Patient is currently lying in the bed. Complains of generalized weakness and fatigue. Hemoglobin level is 6.8 today. 1 unit of PRBC blood transfusion was ordered. There is patient is still requiring high flow oxygen with another cannula. Patient was given IV Lasix. Otherwise patient is tolerating oral diet. Denied any nausea or vomiting. No abdominal pain. Denied any dark colored bowel movements. No complaints of chest pain. No fever no chills. Pulmonary and general surgery is following. 11/17/2019 Patient is currently sitting on the side of the bed in the chair. Still requiring oxygen high flow. On airvo 70% FiO2 otherwise hemoglobin level increased to 8.2 status post 1 unit of PRBC transfusion. No complaints of nausea vomiting abdominal pain. No diarrhea or dysuria. Patient has been afebrile. Denied any abdominal pain. Patient is tolerating oral diet. No complaints of chest pain or worsening shortness of breath. 11/18/2019 Overnight patient had cardiopulmonary arrest with a down time of 8 minutes. Patient was intubated and is currently on mechanical ventilator. Chest x-ray showed worsening pulmonary edema and CHF. Otherwise patient's renal function is worsening with creatinine level went up to 4.59. Hemoglobin stable. No signs of active bleeding noted. Prognosis is guarded with worsening clinical status. Discussed with family at bedside. Pulmonary and nephrology is following.. 11/19/2019 Patient was extubated today. Currently in the MICU. Patient is currently lying in the bed comfortable. Saturating well on nasal cannula oxygen. Hemoglobin is 6.4. No signs of active bleeding. Patient is off pressor support. Creatinine 4.53, hemoglobin went up to 7.9 with 1 unit of PRBC transfusion. Chest x-ray showed continued interstitial and patchy airspace opacities, possible CHF with interstitial edema. Pulmonary, surgery and nephrology is following. 11/20/2019 Patient is currently in the intensive care unit. Patient was extubated yesterday and is currently on high flow cannula 10 L. Denied any complaints of chest pain or worsening shortness of breath. Patient has been afebrile. Hemoglobin went up to 8.3 today. Creatinine level improved at 4.26 Denied any abdominal pain. Tolerating oral diet. Chest x-ray showed worsening right lung infiltrate possibly related to atelectasis and improving left lower lobe infiltrate and minimal left and small right pleural effusions. Cultures have been negative so far. Patient remained on antibiotics in the form of Zosyn and Diflucan. 11/21/2019 Patient was initially admitted to the hospital with a GI bleed status post explorative laparotomy and or seeing of duodenal ulcer. Patient has been having recurrent respiratory failure. Patient went into respiratory failure again this morning and was intubated. Hemoglobin is 7.4. Patient has been afebrile. Family decided to go for comfort care at this time. Active Medications Albuterol/Ipratropium (Duoneb 0.5 Mg-3 Mg/3 Ml Soln) 3 ml INHALATION RT-QID [facility] Albuterol/Ipratropium (Duoneb 0.5 Mg-3 Mg/3 Ml Soln) 3 ml INHALATION RT-Q2H PRN PRN Reason: Shortness Of Breath Or Wheezing Amiodarone HCl (Cordarone) 200 mg PO BID [facility] Last Admin: 11/20/19 21:27 Dose: 200 mg Documented by: Artificial Tears (Artificial Tear Drops) 1 drops BOTH EYES QID PRN PRN Reason: Dry Eye(s) Last Admin: 11/12/19 08:10 Dose: 1 drops Documented by: Budesonide (Pulmicort) 1 mg INHALATION RT-BID [facility] Last Admin: 11/20/19 20:09 Dose: 1 mg Documented by: Darbepoetin Corey (Aranesp) 40 mcg SQ Q7D [facility] Last Admin: 11/16/19 12:01 Dose: 40 mcg Documented by: Formoterol Fumarate (Perforomist) 20 mcg INHALATION RT-BID [facility] Last Admin: 11/20/19 20:09 Dose: 20 mcg Documented by: Piperacillin Sod/Tazobactam (Sod 3.375 gm/ Sodium Chloride) 100 mls @ 25 mls/hr IVPB Q12H [facility] Last Admin: 11/20/19 12:07 Dose: 25 mls/hr Documented by: Sodium Chloride (Saline 0.9%) 1,000 mls @ 50 mls/hr IV .Q20H [facility] Last Admin: 11/20/19 09:17 Dose: 50 mls/hr Documented by: Norepinephrine Bitartrate 4 mg (/ Sodium Chloride) 254 mls @ 17.526 mls/hr IV .[id number] [facility]; Protocol Last Admin: 11/20/19 16:04 Dose: Not Given Documented by: Insulin Aspart (Novolog) 0 unit SQ ACHS [facility]; Protocol Last Admin: 11/20/19 21:14 Dose: 2 unit Documented by: Levothyroxine Sodium (Synthroid) 125 mcg PO DAILY@0630 [facility] Last Admin: 11/20/19 09:10 Dose: 125 mcg Documented by: Lidocaine (Lidoderm) 1 patch TOPICAL DAILY [facility] Last Admin: 11/20/19 09:12 Dose: Not Given Documented by: Metoprolol Tartrate (Lopressor) 50 mg PO TID [facility] Last Admin: 11/20/19 21:27 Dose: 50 mg Documented by: Miscellaneous Information (Potassium Per Protocol) 1 each MISCELLANE DAILY PRN; Protocol PRN Reason: Per Protocol Miscellaneous Information (Magnesium Per Protocol) 1 each MISCELLANE DAILY PRN; Protocol PRN Reason: Per Protocol Miscellaneous Information (Phosphorus Per Protocol) 1 each MISCELLANE DAILY PRN; Protocol PRN Reason: Per Protocol Naloxone HCl (Narcan) 0.2 mg IV Q2M PRN PRN Reason: Opioid Reversal Nicotine (Habitrol 14mg/24hr Patch) 1 patch TRANSDERM DAILY [facility] Last Admin: 11/20/19 09:10 Dose: 1 patch Documented by: Pantoprazole Sodium (Protonix) 40 mg IV BID [facility] Last Admin: 11/20/19 21:28 Dose: 40 mg Documented by: Pregabalin (Lyrica) 50 mg PO BID [facility] Last Admin: 11/20/19 21:28 Dose: 50 mg Documented by: Objective - Vital Signs Vital signs: Vital Signs Temp 97.8 F 11/21/19 16:00 Pulse 51 L 11/21/19 17:00 Resp 24 11/21/19 17:00 BP 111/51 11/21/19 17:00 Pulse Ox 97 11/21/19 17:00 Intake & Output 11/20/19 11/21/19 11/21/19 18:59 06:59 18:59 Intake Total 750 650 706.768 Output Total 1095 1075 390 Balance -345 -425 316.768 Intake: IV 650 650 550 Piperacillin-Tazobactam 3 100 .375 gm In Sodium Chloride 0.9% 100 ml @ 25 mls/hr IVPB Q12H [facility] Rx# :[id number] Sodium Chloride 0.9% 1, 650 550 550 000 ml @ 50 mls/hr IV . Q20H [facility] Rx#:[id number] Intake, IV Titration 100 156.768 Amount Potassium Chloride 20 meq 100 In Water For Injection 1 100ml.bag @ 50 mls/hr IVPB ONCE [facility] Rx#: [id number] Propofol 1,000 mg In 156.768 Empty Bag 1 bag @ Titrate IV .Q0M [facility] Rx#: [id number] Output: Urine 1095 1075 390 Other: Voiding Method Indwelling Catheter Indwelling Catheter Indwelling Catheter ABP, PAP, CO, CI - Last Documented Arterial Blood Pressure 121/36 - Exam PHYSICAL EXAMINATION: Patient is lying in the bed. Currently on mechanical ventilator... HEENT: Normocephalic. Neck is supple. Pupils reactive. Nostrils clear. Oral cavity is moist. Ears reveal no drainage. Neck reveals no JVD, carotid bruits, or thyromegaly. CHEST EXAMINATION: Trachea is central. Symmetrical expansion. Bibasilar crackles and diminished air entry. Scattered rhonchi. CARDIAC: Normal S1, S2 with no gallops. No murmurs ABDOMEN: Soft. Abdominal surgical site is intact, healing well.. Bowel sounds normal. No organomegaly. No abdominal bruits. Extremities: reveal no edema. No clubbing or cyanosis Neurologically patient is on mechanical ventilator. Not responsive.. No focal deficits noted Skin: No rash or skin lesions. Psychiatric: Could not be assessed at this time Musculoskeletal: No joint swelling or deformity. - Labs CBC & Chem 7: 11/21/19 04:40 11/21/19 04:40 Labs: Abnormal Lab Results - Last 24 Hours (Table) 11/20/19 11/21/19 11/21/19 Range/Units 20:31 04:40 04:40 RBC 2.59 L (4.30-5.90) m/uL Hgb 7.4 L (13.0-17.5) gm/dL Hct 23.2 L (39.0-53.0) % RDW 16.4 H (11.5-15.5) % Lymphocytes # 0.9 L (1.0-4.8) k/uL ABG pH (7.35-7.45) ABG pCO2 (35-45) mmHg ABG pO2 (83-108) mmHg ABG Total CO2 (19-24) mmol/L ABG O2 Saturation (94-97) % Chloride 114 H (98-107) mmol/L BUN 39 H (9-20) mg/dL Creatinine 3.90 H (0.66-1.25) mg/dL Glucose 117 H (74-99) mg/dL POC Glucose (mg/dL) 184 H (75-99) mg/dL 11/21/19 11/21/19 11/21/19 Range/Units 06:52 07:21 08:40 RBC (4.30-5.90) m/uL Hgb (13.0-17.5) gm/dL Hct (39.0-53.0) % RDW (11.5-15.5) % Lymphocytes # (1.0-4.8) k/uL ABG pH 7.16 L* 7.23 L (7.35-7.45) ABG pCO2 66 H 54 H (35-45) mmHg ABG pO2 132 H (83-108) mmHg ABG Total CO2 25 H (19-24) mmol/L ABG O2 Saturation 98.7 H (94-97) % Chloride (98-107) mmol/L BUN (9-20) mg/dL Creatinine (0.66-1.25) mg/dL Glucose (74-99) mg/dL POC Glucose (mg/dL) 142 H (75-99) mg/dL 11/21/19 Range/Units 11:45 RBC (4.30-5.90) m/uL Hgb (13.0-17.5) gm/dL Hct (39.0-53.0) % RDW (11.5-15.5) % Lymphocytes # (1.0-4.8) k/uL ABG pH (7.35-7.45) ABG pCO2 (35-45) mmHg ABG pO2 (83-108) mmHg ABG Total CO2 (19-24) mmol/L ABG O2 Saturation (94-97) % Chloride (98-107) mmol/L BUN (9-20) mg/dL Creatinine (0.66-1.25) mg/dL Glucose (74-99) mg/dL POC Glucose (mg/dL) 124 H (75-99) mg/dL Microbiology - Last 24 Hours (Table) 11/18/19 18:00 Catheter Tip Culture - Final Catheter Tip 11/18/19 06:15 Blood Culture - Preliminary Blood No Growth after 72 hours 11/18/19 06:08 Blood Culture - Preliminary Blood No Growth after 72 hours Assessment and Plan Assessment: -Acute cardiopulmonary arrest. Status post CPR and return of spontaneous circulation. Patient is extubated on 11/19/2019. Patient was again intubated on 11/21/2019 -Acute blood loss anemia secondary to duodenal ulcer. Status post exploratory laparotomy and oversewing of duodenal ulcer on 11 01 2019 Patient is status post EGD/colonoscopy which revealed duodenal ulcer without any active bleeding with the large interior clot in the second portion of duodenum; colonoscopy revealed ischemic colitis and left colon. Patient is presently on Protonix twice a day. No signs of active bleeding now. Recent drop in hemoglobin could be secondary to anemia of inflammation and chronic disease. -Acute hypoxic respiratory failure with bilateral pleural effusion and atelectasis. was on mechanical ventilator.extubated on 11 05 2019 -coronary artery disease continue with metoprolol hold off aspirin because of GI bleed -Hypertension patient is presently hypotensive secondary to GI bleed holding off on lisinopril, hydralazine. -acute kidney injury. Possible ATN. Creatinine today is 3.03 -acute blood loss anemia due to GI bleed. 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 -PTSD and paranoid ideation. -Continued nicotine use: -DVT prophylaxis with SCDs due to GI leed -CODE STATUS is DO NOT RESUSCITATE/DO NOT INTUBATE plan: Patient is currently on mechanical ventilator. Follow-up ABGs. Monitor renal function due to worsening creatinine level. Monitor H&H continue with antibioticsin the form ofZosyn and Diflucan.. Continue with Protonix. started on oral diet. passed Swallow evaluation. Tolerating regular diet.. Was on TPN. Prognosis guarded with multiple medical problems and recurrent respiratory failures. Family is agreeable to transfer him to comfort care. Time with Patient: Greater than 30
== END 2019-11-21 19:55 | disposition hospice, inpatient (51) | DRG 326 ==
LOC: EC 04:58 → 2SICU 07:30 → 6NMEDSUR 11-09 11:44 → 3SCARD 11-12 23:37 → 2SICU 11-18 04:07
PROVIDERS: ADMIT Hospitalist; ATTEND Hospitalist
PROC: 30233N1 Transfusion of Nonautologous Red Blood Cells into Peripheral Vein, Percutaneous Approach (ICD-10-PCS; 2019-10-28)
PROC: 0DJ08ZZ Inspection of Upper Intestinal Tract, Via Natural or Artificial Opening Endoscopic (ICD-10-PCS; 2019-10-29)
PROC: 0DBG8ZX Excision of Left Large Intestine, Via Natural or Artificial Opening Endoscopic, Diagnostic (ICD-10-PCS; 2019-10-29)
PROC: 0DQ90ZZ Repair Duodenum, Open Approach (ICD-10-PCS; 2019-11-01)
PROC: 30233K1 Transfusion of Nonautologous Frozen Plasma into Peripheral Vein, Percutaneous Approach (ICD-10-PCS; 2019-11-01)
PROC: 5A1945Z Respiratory Ventilation, 24-96 Consecutive Hours (ICD-10-PCS; 2019-11-02)
PROC: 0BH17EZ Insertion of Endotracheal Airway into Trachea, Via Natural or Artificial Opening (ICD-10-PCS; 2019-11-02)
PROC: 3E0436Z Introduction of Nutritional Substance into Central Vein, Percutaneous Approach (ICD-10-PCS; 2019-11-02)
PROC: 02HV33Z Insertion of Infusion Device into Superior Vena Cava, Percutaneous Approach (ICD-10-PCS; principal; 2019-11-18)
PROC: 03HY32Z Insertion of Monitoring Device into Upper Artery, Percutaneous Approach (ICD-10-PCS; 2019-11-18)
PROC: 4A133B1 Monitoring of Arterial Pressure, Peripheral, Percutaneous Approach (ICD-10-PCS; 2019-11-18)
PROC: 4A133J1 Monitoring of Arterial Pulse, Peripheral, Percutaneous Approach (ICD-10-PCS; 2019-11-18)
PROC: 5A12012 Performance of Cardiac Output, Single, Manual (ICD-10-PCS; 2019-11-18)
PROC: 5A1945Z Respiratory Ventilation, 24-96 Consecutive Hours (ICD-10-PCS; 2019-11-18)
PROC: 0BH17EZ Insertion of Endotracheal Airway into Trachea, Via Natural or Artificial Opening (ICD-10-PCS; 2019-11-18)
PROC: 5A1935Z Respiratory Ventilation, Less than 24 Consecutive Hours (ICD-10-PCS; 2019-11-21)
PROC: 0BH17EZ Insertion of Endotracheal Airway into Trachea, Via Natural or Artificial Opening (ICD-10-PCS; 2019-11-21)
DX: K26.4 Chronic or unspecified duodenal ulcer with hemorrhage (principal); N17.0 Acute kidney failure with tubular necrosis; J96.01 Acute respiratory failure with hypoxia; I46.8 Cardiac arrest due to other underlying condition; K55.9 Vascular disorder of intestine, unspecified; N18.4 Chronic kidney disease, stage 4 (severe); J98.11 Atelectasis; D62 Acute posthemorrhagic anemia; E87.2 Acidosis; F23 Brief psychotic disorder; I13.0 Hypertensive heart and chronic kidney disease with heart failure and stage 1 through stage 4 chronic kidney disease, or unspecified chronic kidney disease; I47.1 Supraventricular tachycardia; I48.20 Chronic atrial fibrillation, unspecified; K59.00 Constipation, unspecified; E03.9 Hypothyroidism, unspecified; E11.22 Type 2 diabetes mellitus with diabetic chronic kidney disease; E11.65 Type 2 diabetes mellitus with hyperglycemia; E78.5 Hyperlipidemia, unspecified; E87.5 Hyperkalemia; F17.210 Nicotine dependence, cigarettes, uncomplicated; R45.1 Restlessness and agitation; F43.10 Post-traumatic stress disorder, unspecified; F60.0 Paranoid personality disorder; G47.33 Obstructive sleep apnea (adult) (pediatric); Z99.89 Dependence on other enabling machines and devices; I25.10 Atherosclerotic heart disease of native coronary artery without angina pectoris; I48.0 Paroxysmal atrial fibrillation; I50.9 Heart failure, unspecified; J44.9 Chronic obstructive pulmonary disease, unspecified; M19.90 Unspecified osteoarthritis, unspecified site; Z91.81 History of falling; Z51.5 Encounter for palliative care; Z53.09 Procedure and treatment not carried out because of other contraindication; Z66 Do not resuscitate; Z79.82 Long term (current) use of aspirin; Z79.84 Long term (current) use of oral hypoglycemic drugs; Z79.890 Hormone replacement therapy; Z79.899 Other long term (current) drug therapy
CPT/HCPCS: 36415; 36430; 36556; 36600; 43235; 43255; 45331; 71045; 76770; 80048; 80053; 81001; 81003; 82040; 82330; 82728; 82805; 83036; 83540; 83550; 83605; 83735; 84100; 84145; 84439; 84443; 84478; 84484; 85025; 85027; 85379; 85610; 85730; 86658; 86850; 86900; 86901; 86920; 87040; 87070; 87086; 87205; 88305; 93005; 93306; 94002; 94003; 94640; 94760; 96361; 96374; 96375; 99291

== ENCOUNTER 2019-11-21 16:21 | Inpatient (IN) | payer MEDICAID ==
[2019-11-21] MEDS ORDERED: ATROPINE OPHTH SOLN 1% 5ML BTL SUBLINGUAL PRN (17:08)
[2019-11-21] MEDS ORDERED: ACETAMINOPHEN SUPPOSITORY 650 MG SUPP RECTAL PRN (17:08)
[2019-11-21] MEDS ORDERED: MORPHINE SULFATE 2 MG/ML SYRINGE IV PRN (17:08)
[2019-11-21] MEDS ORDERED: LORazepam 2 MG/ML INJ IV PRN (17:08)
[2019-11-21] MEDS ORDERED: MORPHINE SULFATE 4 MG/ML SYRINGE IVP ONE (17:08)
[2019-11-21] MEDS ORDERED: ONDANSETRON 4 MG/2 ML VIAL IVP PRN (17:08)
[2019-11-21] MEDS: MORPHINE SULFATE (100 MG/2 ML) 100 MG in SODIUM CHLORIDE 0.9% 100 ML IV SCH ×2 (20:24→23:43)
[2019-11-22 00:15] VITALS: RESP 12
[2019-11-22] MEDS ORDERED: BISACODYL 10 MG SUPP RECTAL PRN (09:00)
--- NOTE | 2019-12-06 22:10 | P.DS ---
Providers Date of admission: 11/21/19 19:59 Expected date of discharge: 11/22/19 Attending physician: Zara Olsen Primary care physician: Zara Olsen [facility] Course: diagnosis -Acute cardiopulmonary arrest. Status post CPR and return of spontaneous circulation. Patient is extubated on 11/19/2019. Patient was again intubated on 11/21/2019 -Acute hypoxic respiratory failure -Acute blood loss anemia secondary to duodenal ulcer. Status post exploratory laparotomy and oversewing of duodenal ulcer on 11 01 2019 Patient is status post EGD/colonoscopy which revealed duodenal ulcer without any active bleeding with the large interior clot in the second portion of duodenum; colonoscopy revealed ischemic colitis and left colon. Patient is presently on Protonix twice a day. No signs of active bleeding now. Recent drop in hemoglobin could be secondary to anemia of inflammation and chronic disease. -Acute hypoxic respiratory failure with bilateral pleural effusion and atelectasis. was on mechanical ventilator.extubated on 11 05 2019. re intubated on 11/21/2019 -coronary artery disease continue with metoprolol hold off aspirin because of GI bleed -Hypertension patient is presently hypotensive secondary to GI bleed holding off on lisinopril, hydralazine. -acute kidney injury. Possible ATN. Creatinine today is 3.03 -acute blood loss anemia due to GI bleed. 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 -PTSD and paranoid ideation. -Continued nicotine use: -DVT prophylaxis with SCDs due to GI leed -CODE STATUS is DO NOT RESUSCITATE/DO NOT INTUBATE Hospital course Patient is a pleasant 78-year-old gentleman came in with complaints of dark stools multiple stools along with some clots in the stool. patient wasadmitted to the hospital with upper GI bleed and was found have duodenal ulcer. due to active bleeding patient was taken to operating room for exploratory laparotomy. Postoperatively patient was intubated. Patient is currently remained on mechanical ventilator. chest x-ray showed bilateral pleural effusions mainly right side with atelectatic changes. Patient is on Levothroid drip and his IV FLUIDS. HEMOGLOBIN8.8, potassium 5.7, BUN/creatinine 46/ 2.89 11/03/2019 Patient iscurrentlyremained on mechanical ventilator. Hemoglobin 7.1 today. Patient initially received 8 units of PRBC transfusion preoperatively.Patient is still requiring pressor support on and off. Patient is currently on NG tube. TPN is being started today. chest x-ray showed improvement of atelectatic changes in the lung bases and small pleural effusion. patient has been afebrile. No abdominal distention. Surgical wound is intact. No leukocytosis. bUN/creatinine 43 x 3.13 11/04/2019 Patient is currently on mechanical ventilator. Postoperative day 3. Status post laparotomy and oversewing of duodenal ulcer. patient is currently on TPN. patient is on sedation holiday and is easily arousable. Hemoglobin is fairly stable at 7.9 today. No further episodes of GI bleed.Chest x-ray showed bilateral pleural effusions worse on the right. Ultrasound of the kidneys showed no evidence ofhydronephrosis. Creatinine level isimproving to 2.8 today.Pulmonary and GI is following. 11 05 2019 patient is postoperative day 4, status post laparotomy and oversewing of the urinalysis. Hemoglobin did improve to 8.7 today.patient is being continued on IV Lasix due to pleural effusion. Currently on norepinephrinewhich is being weaned off slowly. Patient is stable at creatinine level II.8.no signs of active GI bleed. IVELISSE drain is in place. Patient is being prepared for weaning prior.patient has been afebrile.Chest x- ray showedoverall stable findingssmall to moderate size right greater than left pleural effus with mild central vascular congestion. 11/06/2019 Patient was successfully extubated yesterday. Currently postoperative day 5. Status post exploratorylaparotomy and oversewing of duodenal ulcer. Hemoglobin is stable and improving at 9.8 today. Creatinine level is 3.03. peripheral edema is improv patient was diuresing well vascular congestion. Currently onoxygen nasal canula. patient wants to eat Swallow evaluation is pending.currently on TPN chest x-ray showed bilateral pleural effusions right greater than left Patient has been Afebrile 11/07/2019 Patient denied any complaints of abdominal pain. Hemoglobin is stable and improved to 9.7. Hemodynamically stable. Off pressor support. Status post explored laparotomy and oversewing of duodenal ulcer due to GI bleed. Patient was extubated. urrently patient is tolerating clear liquids. Does have generalized weakness Is improving. Currently on IV Lasix. Chest x-ray showed improvement in volume status without any significant abnormalities. Mild pulmonary vascular congestion without yaya pulmonary edema. patient has been afebrile.patient is awake alert and oriented. sometimes paranoid.still on TPN for nutritional support. Currently maintaining sinus rhythm. 11/08/2019 Patient is awake alert but confused. Tolerating liquids. No complaints of nausea or vomiting. Patient is still on TPN. Hemoglobin is at 8.6 today. Patient is status post exploratory laparotomy and oversewing of duodenal ulcer.postoperative 7 The patient had several runs of SVT yesterday with a heart rate ranging between 140 and 160. He was given adenosine which converted him and subsequently went back. Following that, the patient was started on amiodarone drip which put him in sinus rhythm and the drip is still running at 0.5 mg per KG per minute. continued onIV Lasix.leg swelling is improving. Patient has been afebrile. Currently on antibiotics in the form of Zosyn and Diflucan. Chest x-ray showedimproved infiltrates. 11/09/2019 Patient is postoperative day 8 status post explorative laparotomy and or seeing of duodenal ulcer. Hemoglobin level improved to 9.6 now. Patient's mental status is much improved compared to yesterday. Less confused today. Tolerating oral diet and is being advanced. BUE and is 42 and creatinine 2.17. Currently on oxygen via nasal cannula 6 L. Chest x-ray showed atelectasis at bases. Patient was on IV Lasix due to pleural effusion. SVT was resolved. Patient was given Adenosine yesterday. patient is being transferred to medical floor today. The pressure is still elevated. Continued on metoprolol and Norvasc. Added hydralazineas per his home dose. Currently on antibiotics in the form of Zosyn and Diflucan. 11/16/2019 Patient is currently lying in the bed. Complains of generalized weakness and fatigue. Hemoglobin level is 6.8 today. 1 unit of PRBC blood transfusion was ordered. There is patient is still requiring high flow oxygen with another cannula. Patient was given IV Lasix. Otherwise patient is tolerating oral diet. Denied any nausea or vomiting. No abdominal pain. Denied any dark colored bowel movements. No complaints of chest pain. No fever no chills. Pulmonary and general surgery is following. 11/17/2019 Patient is currently sitting on the side of the bed in the chair. Still requiring oxygen high flow. On airvo 70% FiO2 otherwise hemoglobin level increased to 8.2 status post 1 unit of PRBC transfusion. No complaints of nausea vomiting abdominal pain. No diarrhea or dysuria. Patient has been afebrile. Denied any abdominal pain. Patient is tolerating oral diet. No complaints of chest pain or worsening shortness of breath. 11/18/2019 Overnight patient had cardiopulmonary arrest with a down time of 8 minutes. Patient was intubated and is currently on mechanical ventilator. Chest x-ray showed worsening pulmonary edema and CHF. Otherwise patient's renal function is worsening with creatinine level went up to 4.59. Hemoglobin stable. No signs of active bleeding noted. Prognosis is guarded with worsening clinical status. Discussed with family at bedside. Pulmonary and nephrology is following.. 11/19/2019 Patient was extubated today. Currently in the MICU. Patient is currently lying in the bed comfortable. Saturating well on nasal cannula oxygen. Hemoglobin is 6.4. No signs of active bleeding. Patient is off pressor support. Creatinine 4.53, hemoglobin went up to 7.9 with 1 unit of PRBC transfusion. Chest x-ray showed continued interstitial and patchy airspace opacities, possible CHF with interstitial edema. Pulmonary, surgery and nephrology is following. 11/20/2019 Patient is currently in the intensive care unit. Patient was extubated yesterday and is currently on high flow cannula 10 L. Denied any complaints of chest pain or worsening shortness of breath. Patient has been afebrile. Hemoglobin went up to 8.3 today. Creatinine level improved at 4.26 Denied any abdominal pain. Tolerating oral diet. Chest x-ray showed worsening right lung infiltrate possibly related to atelectasis and improving left lower lobe infiltrate and minimal left and small right pleural effusions. Cultures have been negative so far. Patient remained on antibiotics in the form of Zosyn and Diflucan. 11/21/2019 Patient was initially admitted to the hospital with a GI bleed status post explorative laparotomy and or seeing of duodenal ulcer. Patient has been having recurrent respiratory failure. Patient went into respiratory failure again this morning and was intubated. Hemoglobin is 7.4. Patient has been afebrile. Family decided to go for comfort care at this time. 11/22/2019 Patient went into acute respiratory failure and was recently intubated.. Code status was changed to comfort care as per family request. Patient was transferred to hospice care. Patient Condition at Discharge: Undetermined Plan - Discharge Summary New Discharge Prescriptions: No Action Ferrous Sulfate [Feosol] 325 mg PO TID Multivitamins, Thera [Multivitamin (formulary)] 1 tab PO BID Liothyronine Sodium [Cytomel] 5 mcg PO DAILY Levothyroxine Sodium [Synthroid] 125 mcg PO DAILY Cholecalciferol [Vitamin D3 (25 Mcg = 1000 Iu)] 3,000 unit PO DAILY Pregabalin 50 mg PO BID Ascorbic Acid/Ascorbate Sodium [Vitamin C 250 mg Tablet Chew] 500 mg PO DAILY glipiZIDE [Glucotrol] 10 mg PO AC-TID Lidocaine 5% Patch [Lidoderm] 1 patch TRANSDERM DAILY Cyclobenzaprine [Flexeril] 5 mg PO BID PRN PRN Reason: Muscle Spasm Simvastatin [Zocor] 20 mg PO HS Metoprolol Tartrate [Lopressor] 50 mg PO BID Lisinopril 40 mg PO DAILY Aspirin EC [Ecotrin Low Dose] 81 mg PO DAILY hydrALAZINE HCL [Apresoline] 100 mg PO TID amLODIPine [Norvasc] 10 mg PO DAILY Alogliptin Benzoate [Alogliptin] 12.5 mg PO DAILY Discharge Medication List Alogliptin Benzoate [Alogliptin] 12.5 mg PO DAILY 10/28/19 [History] Ascorbic Acid/Ascorbate Sodium [Vitamin C 250 mg Tablet Chew] 500 mg PO DAILY 10/28/19 [History] Aspirin EC [Ecotrin Low Dose] 81 mg PO DAILY 10/28/19 [History] Cholecalciferol [Vitamin D3 (25 Mcg = 1000 Iu)] 3,000 unit PO DAILY 10/28/19 [History] Cyclobenzaprine [Flexeril] 5 mg PO BID PRN 10/28/19 [History] Ferrous Sulfate [Feosol] 325 mg PO TID 10/28/19 [History] Levothyroxine Sodium [Synthroid] 125 mcg PO DAILY 10/28/19 [History] Lidocaine 5% Patch [Lidoderm] 1 patch TRANSDERM DAILY 10/28/19 [History] Liothyronine Sodium [Cytomel] 5 mcg PO DAILY 10/28/19 [History] Lisinopril 40 mg PO DAILY 10/28/19 [History] Metoprolol Tartrate [Lopressor] 50 mg PO BID 10/28/19 [History] Multivitamins, Thera [Multivitamin (formulary)] 1 tab PO BID 10/28/19 [History] Pregabalin 50 mg PO BID 10/28/19 [History] Simvastatin [Zocor] 20 mg PO HS 10/28/19 [History] amLODIPine [Norvasc] 10 mg PO DAILY 10/28/19 [History] glipiZIDE [Glucotrol] 10 mg PO AC-TID 10/28/19 [History] hydrALAZINE HCL [Apresoline] 100 mg PO TID 10/28/19 [History] Discharge Disposition: - Preliminary Cause of Preliminary Cause of : Acute hypoxic respiratory failure with bilateral pleural effusion and GI bl
== END 2019-11-22 01:10 | disposition expired | DRG 951 ==
LOC: 2SICU 19:59
PROVIDERS: ADMIT Hospitalist; ATTEND Hospitalist
DX: Z51.5 Encounter for palliative care (principal); K27.4 Chronic or unspecified peptic ulcer, site unspecified, with hemorrhage; N17.9 Acute kidney failure, unspecified; D62 Acute posthemorrhagic anemia; E11.9 Type 2 diabetes mellitus without complications; E78.5 Hyperlipidemia, unspecified; I10 Essential (primary) hypertension; M19.90 Unspecified osteoarthritis, unspecified site; G47.30 Sleep apnea, unspecified; E07.9 Disorder of thyroid, unspecified; F17.200 Nicotine dependence, unspecified, uncomplicated; I95.9 Hypotension, unspecified; Z79.82 Long term (current) use of aspirin; Z79.890 Hormone replacement therapy; Z79.84 Long term (current) use of oral hypoglycemic drugs; Z79.899 Other long term (current) drug therapy